=== PATIENT | female | born 1970 | race Caucasian/White ===

== ENCOUNTER → 2018-01-20 14:59 | Outpatient (CLI) | payer OTHER, SELFPAY ==
[2018-01-20 14:29] VITALS: BMI 29.2
--- NOTE | 2018-01-20 15:06 | VDUE_ITS ---
Reason For Study: Pre op dialysis access graft Right Arm Left Arm Right Cephalic Vein at the wrist Left Cephalic Vein at the wrist measures .21 measures .12 x .15 cm. x .24 cm. Right Cephalic Vein in the forearm Left Cephalic Vein in the forearm measures .18 measures .18 x .19 cm. x .18 cm. Right Cephalic Vein below antecub Left Cephalic Vein below antecub measures .20 measures .14 x .17 cm. x .21 cm. Right Cephalic Vein above antecub Left Cephalic Vein above antecub measures .15 x .16 cm. measures .13x .15 cm. Right Cephalic Vein mid bicep measures .21 Left Cephalic Vein at mid bicep measures .13 x .19 cm. x .15 cm. Right Cephalic Vein at the shoulder Left Cephalic Vein at the shoulder measures .17 x .19 cm. measures .14 x .16 cm. Right Basilic Vein at the origin Basilic vein at origin measures .34 x .35 cm. measures .37 x .35 cm. Basilic vein at bicep measures .29 x .31 cm. Right Basilic Vein mid bicep measures .27 Basilic vein above antecub measures .33 x .38 x .27 cm. cm. Right Basilic Vein above antecub Brachial artery - .43 x .44 cm with a velocity measures .23 x .27 cm. of 137.0 cm/s Brachial artery - .34 x .33 cm with a Radial artery - .20 x .18 cm with velocity of velocity of 92.6 cm/s 81.5 cm/s. Radial artery - .19 x .19 cm with a velocity of 102.0 cm/s. Interpretation Summary Patent and compressible bilateral upper extremity cephalic and basilic veins with very small bilateral cephalic veins. Adequate bilateral upper arm basilic veins Adequate bilateral brachial arteries Ordering Physician: Guanakito Palafox Referring Physician: Guanakito Palafox Performed By: Ana Pop RVT ?
--- NOTE | 2018-01-20 15:06 | VDUE_ITS ---
Reason For Study: LUE swelling Left Proximal Left jugular vein is spontaneous, widely patent, phasic, with no intraluminal echogenicity noted. Left subclavian vein is spontaneous, widely patent, phasic, with no intraluminal echogenicity noted. Left Arm Left axillary vein is spontaneous, patent, phasic, competent, compressible and demonstrates augmentation. Left brachial vein is compressible. Left cephalic vein is compressible. Left basilic vein is compressible. Left Lower Arm Left radial vein is compressible. Left ulnar vein is compressible. Interpretation Summary No evidence for acute deep venous thrombosis[left] upper extremity with patent and compressible cephalic and basilic veins. Ordering Physician: Guanakito Palafox Referring Physician: Guanakito Palafox Performed By: Ana Pop RVT ?
== END ==
PROVIDERS: PCP Family Medicine; Referring Provider Surgery; Visit Provider Surgery
DX: Z01.818 Encounter for other preprocedural examination (principal); M79.89 Other specified soft tissue disorders
CPT/HCPCS: 93970; 93971

== ENCOUNTER 2018-01-27 05:55 | Day surgery (SDC) | payer OTHER, SELFPAY ==
[2018-01-20 14:29] VITALS: BMI 29.2
[2018-01-27 06:43] VITALS: BP 143/82; PULSE 106; RESP 18; TEMP 36.6; O2SAT 93; BMI 27.0
[2018-01-27 07:01] LABS: Bedside Glucose 144 mg/dL (70-110)
[2018-01-27] MEDS: Heparin Injection (Vial) 5,000 UNIT/ML VIAL 5000 UNIT (07:34)
[2018-01-27] MEDS: Bupivacaine Mpf 0.5% 30 ML VIAL (08:27)
--- NOTE | 2018-01-27 09:18 | PCM.DC.FIST ---
Discharge Diet: Renal Diet Discharge Activity: May Not Drive - for 2-3 days or while taking narcotic pain medications., May Shower, May Take a Tub Bath - in 5 days. Lifting Restrictions: 5 pounds Keep extremity elevated above heart level: - - Keep arm elevated above the heart level for 3 days. Additional Activity Instructions:: Exercise hand vigorously with a stress ball. Call your doctor if your incision/area has: Continuous Slow Oozing, Sudden Increased Bleeding - apply pressure and call your doctor., Increased Pain/ Swelling, Increased Redness, Foul Smelling Discharge Call your doctor if you observe: Fever of 101 or Higher Suture Line Care: Avoid Pulling/Pushing, Avoid Pinching/Bending Cleanse incision/area with: Keep Dressing Clean & Dry Additional Dressing/Incision Instructions:: Leave your dressing on for 2-3 days. Remove if there is any irritation. Leave the additional Steri-Strips on for 1 week Allergies/Adverse Reactions: Allergies amoxicillin [From Augmentin] Allergy (Verified 01/26/18 18:04) Hives clavulanic acid [From Augmentin] Allergy (Verified 01/26/18 18:04) Hives furosemide [From Lasix] Allergy (Verified 01/26/18 18:04) Swelling sulfamethoxazole [From Bactrim] Allergy (Verified 01/26/18 18:04) Chest tightness trimethoprim [From Bactrim] Allergy (Verified 01/26/18 18:04) Chest tightness Medications to take at Discharge Insulin Glargine,Hum.rec.anlog [Lantus] 15 unit SQ BID 02/08/15 Lisinopril [Zestril] 10 mg PO DAILY 11/29/15 Metoprolol Tartrate [Lopressor (beta naot)] 12.5 mg PO DAILY 12/06/15 Hydrocodone Bitart/Apap 5-325 [[place] 5MG-325MG] 1 tablet PO Q6H PRN PRN 2 Days #5 tablet 01/27/18 The following prescriptions were given: Hydrocodone Bitart/Apap 5-325 [[place] 5MG-325MG] 1 tablet PO Q6H PRN PRN 2 Days #5 tablet PRN Reason: Pain Primary Care Physician: Alexander Gamble MD [Primary Care Provider] - Test Results: Test results from this visit will be discussed in further detail at your follow-up appointment, if applicable. Please Follow Up With: Guanakito Palafox MD - [phone] When: Call to make an appointment for suture removal and follow up in 1 week.
--- NOTE | 2018-01-27 09:19 | PCM.OPRPT ---
Problem List (1) Chronic renal failure, stage 5 Status: Acute Report of Operation Date of Procedure: 01/27/18 Pre-Operative Diagnosis: Stage V chronic renal insufficiency Post-Operative Diagnosis: Same Surgery/Procedure Performed:: Stage I right upper extremity brachial to basilic arteriovenous fistula creation Description of Surgical Findings:: Timeout and informed consent was obtained. 47-year-old female was taken the operating placed by the table. She underwent monitored anesthesia care and local anesthetic. 1% lidocaine mixed 50-50 with 0.5% Marcaine was used as a local anesthetic. A total of 15 cc was used. An oblique incision was made in the right antecubital space proximal to the crease. Ultrasound has been performed to identify the course of the basilic vein. The basilic vein was dissected circumferentially and then ink marked. Sharp and blunt dissection was used to identify the right brachial artery. Circumferential control was obtained. The patient received 7000 units of heparin. After adequate Strickling time the vein was ligated distally with a Hemoclip. Peripheral vascular clamps were placed on the brachial artery. An 11 blade was used to make an arteriotomy which was extended with Gardner scissors. The vein was spatulated length and end-to-side anastomosis created with a running 7-0 Prolene. Prior to completion of this good antegrade and retrograde flow. The anastomosis was completed and immediately there was good pulsatile flow within the basilic vein. Hemostasis was nicely intact. The wound was closed with a deep layer of interrupted 3-0 Vicryl and then a running septic or 4-0 Monocryl. Steri-Strips Telfa OpSite dressings applied. Sponge and instrument and needle counts were reported the surgeon be correct. Blood loss was minimal. She tolerated the procedure well was taken to the recovery area in satisfactory condition without apparent complication. Hand was viable. Specimens none. Drains none. Blood loss minimal. Guanakito Palafox M.D., F.A.C.S. Type of Anesthesia:: Local MAC Anesthesiologist: Sb Lomax
[2018-01-27 09:20] VITALS: BP 118/71; BP 143/82; PULSE 99; RESP 16; TEMP 36.3; O2SAT 84
[2018-01-27 09:25] VITALS: BP 127/72; BP 143/82; PULSE 101; RESP 16; O2SAT 86
[2018-01-27 09:30] VITALS: BP 134/78; BP 143/82; PULSE 101; RESP 16; O2SAT 87
[2018-01-27 09:39] VITALS: BP 137/76; BP 143/82; PULSE 101; RESP 16; TEMP 36.8; O2SAT 87
--- NOTE | 2018-01-27 09:42 | SUR.PHASEI ---
PULSE OX 85-87% ON ROOM AIR, OK TO DISCHARGE, THIS IS PATIENTS, BASELINE.
[2018-01-27 10:48] VITALS: BP 142/79; BP 143/82; PULSE 104; RESP 18; TEMP 36.9; O2SAT 92
--- OUTSIDE RECORDS SUMMARY | 2018-03-15 04:57 | XMS RPT_ITS ---
:1970 Author Organization OHIP Support Name Relationship Address Phone CEE KELLY Unavailable [address] + [place] [address] MARCIO, EWA Unavailable Unavailable + UE Unavailable Unavailable Unavailable CEE KELLY Unavailable [address] + [place] [address] MARCIO, EWA Unavailable . + [place] [address] UE Unavailable Unavailable Unavailable CEE KELLY Unavailable [address] + [place] [address] MARCIO, EWA Unavailable . + [place] [address] UE Unavailable Unavailable Unavailable CEE KELLY Unavailable [address] + [place] [address] MARCIO, EWA Unavailable Unavailable + UE Unavailable Unavailable Unavailable CEE KELLY Unavailable [address] + [place] [address] MARCIO, EWA Unavailable Unavailable + [place] [address] UE Unavailable Unavailable Unavailable KELLYCEE Unavailable [address] + [place] [address] UE Unavailable Unavailable Unavailable CEE KELLY Unavailable [address] + [place] [address] UE Unavailable Unavailable Unavailable KELLYCEE Unavailable [address] [facility] + [place] [address] UE Unavailable Unavailable Unavailable CEE KELLY Unavailable [address] [address] + [address] [place] [address] CEE KELLY Unavailable [address] + [address] [place] [address] CEE KELLY Unavailable [address] + [place], [place] [phone] CEE KELLY Unavailable [address] Unavailable [place] [phone] NOT GIVEN Unavailable Unavailable Unavailable CEE KELLY Unavailable [address] + [place], [place] [phone] CEE KELLY Unavailable [address] Unavailable [place], [place] [id number] NOT GIVEN Unavailable Unavailable Unavailable CEE KELLY Unavailable [address] + [place] [address] CEE KELLY Unavailable [address] + [place], [place] [phone] KELLYCEE Unavailable [address] Unavailable [place] [id number] NOT GIVEN Unavailable Unavailable Unavailable KELLYCEE Unavailable [address] + [place] [address] KELLYCEE Unavailable [address] + [place], [place] [phone] KELLYCEE Unavailable [address] Unavailable [place] [phone] NOT GIVEN Unavailable Unavailable Unavailable KELLYCEE Unavailable [address] + [place], [place] [phone] KELLY CEE Unavailable [address] Unavailable [place] [phone] NOT GIVEN Unavailable Unavailable Unavailable KELLY CEE Unavailable [address] + [place], [place] [phone] KELLY CEE Unavailable [address] Unavailable [place] [phone] NOT GIVEN Unavailable Unavailable Unavailable KELLYCEE Unavailable [address] + [place], [place] [id number] KELLYCEE Unavailable [address] Unavailable [place] [phone] NOT GIVEN Unavailable Unavailable Unavailable CEE KELLY Unavailable [address] + [place], [place] [phone] KELLY CEE Unavailable [address] Unavailable [place] [id number] NOT GIVEN Unavailable Unavailable Unavailable CEE KELLY Unavailable [address] + [place], [place] [phone] CEE KELLY Unavailable [address] Unavailable [place] [phone] NOT GIVEN Unavailable Unavailable Unavailable CEE KELLY Unavailable [address] + [place] [phone] CEE KELLY Unavailable [address] Unavailable [place] [phone] NOT GIVEN Unavailable Unavailable Unavailable NOT GIVEN Unavailable Unavailable Unavailable CEE KELLY Unavailable [address] + [place], [place] [phone] CEE KELLY Unavailable [address] Unavailable [place], [place] [phone] NOT GIVEN Unavailable Unavailable Unavailable CEE KELLY Unavailable [address] + [place] [phone] CEE KELLY Unavailable [address] Unavailable [place], [place] [phone] NOT GIVEN Unavailable Unavailable Unavailable CEE KELLY Unavailable [address] + [place] [address] CEE KELLY Unavailable [address] + [place] [address] CEE KELLY Unavailable [address] + [place] [phone] CEE KELLY Unavailable [address] Unavailable [place] [phone] NOT GIVEN Unavailable Unavailable Unavailable Care Team Providers Name Role Phone JOLEEN DAVIDSON MD Admitting Unavailable [facility] Primary Care Unavailable LIV BAIG, DR. VENKATA Mason Attending Unavailable [facility] Consulting Unavailable EDUARDO PENA MD, V. Consulting Unavailable JARVIS TAYLOR DO Consulting Unavailable FRED LA MD Consulting Unavailable HEMA PETERSON MD Consulting Unavailable FRED KELLY MD Consulting Unavailable NADIA BOYCE MD Consulting Unavailable ALICIA SALAZAR Consulting Unavailable FRED KELLY MD Attending Unavailable [facility] Primary Care Unavailable AMBROSE HUYNH MD Admitting Unavailable TYE BAIG, [facility] Unavailable JOHAN SAEED DO Attending Unavailable MORALES FLOYD MD Consulting Unavailable LYN APODACA DO Consulting Unavailable MEERA FREEMAN MD Consulting Unavailable AMRIT KUHN Consulting Unavailable ISAÍAS CAI MD Consulting Unavailable TYE BAIG, KANNAN Consulting Unavailable SHAZIA BAIG, DR. MICHAELS Consulting Unavailable LYN TORRES MD Consulting Unavailable TYE BAIG, [place] Primary Care Unavailable ANH RUVALCABA Admitting Unavailable GREGORIO PAZ, DR. DANIEL Attending Unavailable YURIY FENG Consulting Unavailable ANALI INFANTE MD, BA. Consulting Unavailable LYN TORRES MD Consulting Unavailable ISAÍAS CAI MD Consulting Unavailable NATHAN OHARA DO Consulting Unavailable TYE BAIG, KANNAN Consulting Unavailable DEDRA PAZ, DR. ADIN Enrique Consulting Unavailable RATNA STEIN MD Admitting Unavailable RATNA STEIN MD Attending Unavailable TYE BAIG, [place] Primary Care Unavailable TYE BAIG, KANNAN Consulting Unavailable ANALI INFANTE MD, BA. Consulting Unavailable DEDRA PAZ, DR. ADIN Enrique Consulting Unavailable ISAÍAS CAI MD Consulting Unavailable LYN TORRES MD Consulting Unavailable EMIL ESQUEDA, RATNA Lambert Attending Unavailable TYE BAIG, [place] Primary Care Unavailable MIEDEL, MARY E Admitting Unavailable MIEDEL, MARY E Attending Unavailable MIGERALDINEEL, MARY E Primary Care Unavailable RADHA WILLINGHAM Consulting Unavailable PROVIDER, UNKNOWN Consulting Unavailable PROVIDER, UNKNOWN Consulting Unavailable PROVIDER, UNKNOWN Consulting Unavailable DR NAMAN VUONG Admitting Unavailable CAROLANN, DR NAMAN Coffman Attending Unavailable JAROCHO BARROW CNP Referring Unavailable CAROLANN, DR NAMAN Coffman Primary Care Unavailable JAROCHO BARROW CNP Consulting Unavailable PROVIDER, UNKNOWN Consulting Unavailable PROVIDER, UNKNOWN Consulting Unavailable JACOBY OMALLEY DO Admitting Unavailable JACOBY OMALLEY DO Attending Unavailable JACOBY OMALLEY DO Primary Care Unavailable JAROCHO BARROW CNP Consulting Unavailable PROVIDER, UNKNOWN Consulting Unavailable PROVIDER, UNKNOWN Consulting Unavailable FRED SHEPHERD DO Admitting Unavailable FRED SHEPHERD DO Attending Unavailable FRED SHEPHERD DO Primary Care Unavailable JAROCHO BARROW CNP Consulting Unavailable JAROCHO BARROW CNP Referring Unavailable PROVIDER, UNKNOWN Consulting Unavailable PROVIDER, UNKNOWN Consulting Unavailable JAROCHO BARROW CNP Admitting Unavailable JAROCHO BARROW CNP Attending Unavailable JAROCHO BARROW CNP Primary Care Unavailable JAROCHO BARROW CNP Consulting Unavailable PROVIDER, UNKNOWN Consulting Unavailable PROVIDER, UNKNOWN Consulting Unavailable JAROCHO BARROW CNP Admitting Unavailable JAROCHO BARROW CNP Attending Unavailable JAROCHO BARROW [employer]ING EXAMINER Primary Care Unavailable JAROCHO BARROW CNP Consulting Unavailable PROVIDER, UNKNOWN Consulting Unavailable PROVIDER, UNKNOWN Consulting Unavailable HABERBERGER, GALLITO M Admitting Unavailable HABERBERGER, GALLITO M Attending Unavailable JAROCHO BARROW CNP Referring Unavailable HABERBERGER, GALLITO M Primary Care Unavailable PUSHPA JAROCHO TRAN Consulting Unavailable PROVIDER, UNKNOWN Consulting Unavailable PROVIDER, UNKNOWN Consulting Unavailable HABERBERGER, GALLITO M Admitting Unavailable HABERBERGER, GALLITO M Attending Unavailable JAROCHO BARROW CNP Referring Unavailable HABERBERGER, GALLITO M Primary Care Unavailable JAROCHO BARROW CNP Consulting Unavailable PROVIDER, UNKNOWN Consulting Unavailable PROVIDER, UNKNOWN Consulting Unavailable SELENE ALEMAN MD Admitting Unavailable HENRI, SELENE ESQUEDA Attending Unavailable SELENE ALEMAN MD Primary Care Unavailable JAROCHO BARROW CNP Consulting Unavailable JAROCHO BARROW CNP Referring Unavailable PROVIDER, UNKNOWN Consulting Unavailable PROVIDER, UNKNOWN Consulting Unavailable HABERBERGER, GALLITO M Admitting Unavailable HABERBERGER, GALLITO M Attending Unavailable KNANAN GAMBLE Referring Unavailable HABERBERGER, GALLITO M Primary Care Unavailable KANNAN GAMBLE Consulting Unavailable PROVIDER, UNKNOWN Consulting Unavailable CAROLANN, DR NAMAN Coffman Admitting Unavailable CAROLANN, DR NAMAN Coffman Attending Unavailable CAROLANN, DR NAMAN Coffman Primary Care Unavailable JAROCHO BARROW CNP Consulting Unavailable JAROCHO BARROW CNP Referring Unavailable PROVIDER, UNKNOWN Consulting Unavailable PROVIDER, UNKNOWN Consulting Unavailable MINDY KILLIAN MD Admitting Unavailable MINDY KILLIAN MD Attending Unavailable MINDY KILLIAN MD Primary Care Unavailable JAROCHO BARROW CNP Consulting Unavailable PROVIDER, UNKNOWN Consulting Unavailable PROVIDER, UNKNOWN Consulting Unavailable KANNAN GAMBLE Admitting Unavailable KANNAN GAMBLE Attending Unavailable KANNAN GAMBLE Primary Care Unavailable JAROCHO BARROW CNP Consulting Unavailable PROVIDER, UNKNOWN Consulting Unavailable PROVIDER, UNKNOWN Consulting Unavailable MOHSEN BERRY Admitting Unavailable MOHSEN BERRY Attending Unavailable MOHSEN BERRY Primary Care Unavailable NO, DOCTOR ON Referring Unavailable NO, DOCTOR ON Consulting Unavailable DARRELL SINGH Attending Unavailable ISAÍAS CAI Referring Unavailable DARRELL SINGH Referring Unavailable DARRELL SINGH Referring Unavailable DARRELL SINGH Referring Unavailable DARRELL SINGH Admitting Unavailable DARRELL SINGH Attending Unavailable KANNAN GAMBLE) Attending Unavailable JAROCHO BARROW Referring Unavailable KANNAN GAMBLE) Referring Unavailable PODLOGAR, AUGUSTINA (SENDY) Attending Unavailable KANNAN GAMBLE) Attending Unavailable KANNAN GAMBLE) Referring Unavailable AYALA, ISAÍAS GRIER Referring Unavailable SOFI GARSIA (RD) Attending Unavailable AYALA, ISAÍAS MARVEL Referring Unavailable AYALA, ISAÍAS MARVEL Referring Unavailable AYALA, ISAÍAS MARVEL Referring Unavailable AYALA, ISAÍAS MARVEL Referring Unavailable AYALA, ISAÍAS MARVEL Referring Unavailable AYALA, ISAÍAS MARVEL Referring Unavailable AYALA, ISÍAAS MARVEL Referring Unavailable AYALA, ISAÍAS MARVEL Referring Unavailable AYALA, ISAÍAS MARVEL Referring Unavailable KANNAN GAMBLE () Attending Unavailable KANNAN GAMBLE) Referring Unavailable PODLOGAR, AUGUSTINA (SENDY) Attending Unavailable KANNAN GAMBLE) Attending Unavailable KANNAN GAMBLE) Referring Unavailable KANNAN GAMBLE) Referring Unavailable SHERRY PHILIP Attending Unavailable KANNAN GAMBLE) Referring Unavailable KANNAN GAMBLE) Referring Unavailable KANNAN GAMBLE) Referring Unavailable KANNAN GAMBLE) Referring Unavailable CebulGuanakito Attending Unavailable CebulGuanakito Referring Unavailable Tye, Alexander Primary Care Unavailable CebulGuanakito Attending Unavailable CebulGuanakito Attending Unavailable CebulGuanakito Referring Unavailable WILLINGHAM, RADHA Primary Care Unavailable Guanakito Palafox Consulting Unavailable Cebul, Guanakito Attending Unavailable KelseybulGuanakito Referring Unavailable WILLINGHAM, RADHA Primary Care Unavailable Guanakito Palafox Attending Unavailable Alexander Gamble Referring Unavailable Cebul, Guanakito Attending Unavailable CebulGuanakito Referring Unavailable Bursley, Alexander Primary Care Unavailable Laura Jasso PA-C Attending Unavailable Alexander Gamble Referring Unavailable Guanakito [facility]af[facility] Attending Unavailable Alexander Gamble Referring Unavailable PROBLEMS PROBLEMS DATE TYPE CONDITION / CODE ATTENDING STATUS SOURCE Unknown G89.18 - Other acute Guanakito Pal[facility] Active [facility] 9 postprocedural pain / Community G89.18(ICD-10) Hospital Repository Active Secondary amenorrhea NA Active [facility] / N91.1(ICD-10) Clinic Main [facility]ository Active Abnormal levels of NA Active [facility] other serum enzymes / Clinic Main R74.8(ICD-10) [facility] Active Encounter for NA Active [facility] screening mammogram Clinic Main for malignant [facility] neoplasm of breast / Repository Z12.31(ICD-10) Active Other specified NA Active [facility] abnormal findings of Clinic Main blood chemistry / [facility] R79.89(ICD-10) Repository Active Type 2 diabetes NA Active [facility] 8 mellitus with Clinic Main diabetic chronic [facility] kidney disease / Repository E11.22(ICD-10) Unknown N18.5 - Chronic KelseybuGuanakito enrique Active [facility] 9 kidney disease, stage Community 5 / N18.5(ICD-10) Hospital Repository Unknown Z01.818 - Encounter [place] [facility] Active [place] 8 for other Community preprocedural Hospital examination / Repository Z01.818(ICD-10) Unknown M79.89 - Other [place] [facility] Active [facility] 8 specified soft tissue Community disorders / Hospital M79.89(ICD-10) Repository Active Pneumonia, NA Active [facility] 8 unspecified organism Clinic Main / J18.9(ICD-10) [facility] Active Orthopnea / NA Active [facility] 8 R06.01(ICD-10) Clinic Main [facility] Rep[facility] Active Dependence on renal NA Active [facility] dialysis / Clinic Main Z99.2(ICD-10) [facility] Active Type 2 diabetes NA Active [facility] 8 mellitus with Clinic Main diabetic nephropathy [facility] / E11.21(ICD-10) Repository Active penitentiary (current) NA Active [facility] 8 use of insulin / Clinic Main Z79.4(ICD-10) [facility] Rep[facility] Active Tobacco use / NA Active [facility] 8 Z72.0(ICD-10) Clinic Main [facility] Rep[facility] Active Age-related physical NA Active [facility] debility / Clinic Main R54(ICD-10) [facility] Active Other specified NA Active [facility] symptoms and signs Clinic Main involving the [facility] digestive system and Repository abdomen / R19.8(ICD-10) Active Chronic kidney SOIF GARSIA Active [place] [address] disease, unspecified (RD) Clinic Main / N18.9(ICD-10) [facility] Rep[facility] Active Encounter for other NA Active [facility] 8 preprocedural Clinic Main examination / [facility] Z01.818(ICD-10) Repository Active Gastrointestinal NA Active [place] [address] hemorrhage, Clinic Main unspecified / [facility] K92.2(ICD-10) Repository Active Tachycardia, NA Active [place] [address] unspecified / Clinic Main R00.0(ICD-10) [facility] Repository Principle Chronic kidney ROMYMARY ROA Titus Active [place] [address] Diagnosis disease, stage 4 [facility] (severe) / Hospital N184(ICD-10) Repository Active Unknown / TYE [place] [address] UNK(Unknown) KANNAN [facility] OLLIE) [facility] Repository Principle Other general JAROCHO BARROW Active [place] [address] Diagnosis symptoms and signs / Critical access hospital R6889(ICD-10) Hospital Repository Secondary Type 2 diabetes JAROCHO BARROW Active [place] [address] Diagnosis mellitus without Critical access hospital complications / Hospital E119(ICD-10) Repository Active End stage renal NA Active [place] [address] disease / Clinic Main N18.6(ICD-10) [facility] Rep[facility] PROCEDURES PROCEDURES No Procedure Records FoundRESULTS RESULTS BEDSIDE GLUCOSE Collected: 03/10/2018 Status: F Source: [place] 1:13 PM [facility] REPOSITORY TYPE CODE TESTS RESULT OUT OF REFERENCE UNITS RANGE LAB L501.080 70-110 mg/dL High BEDSIDE GLU 115 Result Comment: MANAGEMENT OF PATIENT CARE PER NURSING PROTOCOL Performed By: #### L501.080 #### [facility] Point [place] [address] CBC-COMPLETE BLOOD CNT Collected: 03/10/2018 Status: F Source: [place] NO DIFF 7:40 AM [facility] REPOSITORY TYPE CODE TESTS RESULT OUT OF RANGE REFERENCE UNITS LAB L100.1000 4.4-11.0 K/mm3 Normal WBC 7.4 LAB L100.1200 4.2-5.4 M/mm3 Low RBC 3.77 LAB L100.1300 12.0-15.0 g/dl Low HGB 10.6 LAB L100.1400 37-47 % Low HCT 33.6 LAB L100.1500 81-99 fL Normal MCV 89.1 LAB L100.1600 27.0-32.0 pg Normal MCH 28.1 LAB L100.1700 32-36 g/gl Low MCHC 31.5 LAB L100.1810 11.6-14.6 % High RDW CV 17.2 LAB L100.1820 35.1-43.9 fl High RDW SD 53.4 LAB L100.1900 150-450 K/mm3 Normal PLT 269 LAB L100.2000 6.2-12.0 fl Normal MPV 10.3 Performed By: #### L100.0500 #### [facility] [address] [place], [address] BASIC METABOLIC Collected: 03/10/2018 Status: F Source: [place] PROFILE (BMP) 7:40 AM [facility] REPOSITORY TYPE CODE TESTS RESULT OUT OF RANGE REFERENCE UNITS LAB L501.0100 74-106 mg/dL High GLU 120 Result Comment: Fasting Glucose result from 100 to 125 mg/dL suggests IMPAIRED HOMEOSTASIS per A.D.A. criteria. Please note revised GLUCOSE reference range effective 2017. LAB L501.1000 7-18 mg/dL High BUN 43 LAB L501.1100 0.55-1.02 mg/dL High CREAT,SERUM 4.32 Result Comment: The validity of the calculated GFR AND GFRAA in patients over 70 years has not been determined. Clinical correlation is essential. LAB L501.1110 >60 mL/min Low EST GFR 12 Result Comment: Non- GFR Calc LAB L501.1115 >60 mL/min Low EST GFR - AA 14 Result Comment: GFR Calc LAB L501.1300 10-20 RATIO Normal BUN/CRE 10.0 LAB L501.2200 8.5-10.1 mg/dL CA Normal 9.4 LAB L501.5300 136-145 mmol/L NA Normal 137 LAB L501.5600 3.5-5.1 mmol/L K Normal 4.6 LAB L501.5900 98-107 mmol/L Low CL 97 LAB L501.6100 21.0-32.0 mmol/L Normal CO2 28.0 LAB L501.6200 5-15 Normal GAP 12 Performed By: #### L500.2500 #### [facility] [address] [place], [address] ,URINE Collected: 03/10/2018 Status: F Source: [place] 7:38 AM [facility] REPOSITORY Order Comment: Has pt arrived? Y TYPE CODE TESTS RESULT OUT OF REFERENCE UNITS RANGE LAB L400.8000 Negative Normal HCGUQUAL Negative Result Comment: Very dilute urine specimens, as indicated by a low specific gravity, may not contain artist representative levels of hCG. If is still suspected, a first morning urine specimen should be collected 48 hours later and tested. Performed By: #### L400.7600 #### [facility] [address] [place], [address] PROGRESS Observed: 03/05/2018 Status: COMPLETED Source: [place] 11:56 AM [facility] REPOSITORY HNO ID: [id number] Author: Tracey Escalante) Adan Service: (none) Author Type: Registered Nurse Type: Progress Notes Filed: 03/05/2018 3:35 PM Note Text: PRIMARY CARE COORDINATION QUICK NOTE Provider Action/FYI FYI Patient identified by name and date . TC to Nurse Transplant Line, left message patient stopped smoking 6 weeks ago and had mammogram and Pap which spouse stated was part of the process for transplant list. Spouse is unsure where pt is in the process of getting on the transplant list and what more pt needs to do. Please call PCC back with other requirements. Tracey Arellano RN March 05, 2018 11:58 AM PROGRESS Observed: 03/05/2018 Status: COMPLETED Source: [place] 8:55 AM [facility] REPOSITORY HNO ID: [id number] Author: Kannan Gamble Service: (none) Author Type: Physician Type: Progress Notes Filed: 03/05/2018 8:55 AM Note Text: Reviewed. Thanks PROGRESS Observed: 02/27/2018 Status: COMPLETED Source: [place] 2:42 PM [facility] REPOSITORY HNO ID: [id number] Author: Tracey Escalante) Adan Service: (none) Author Type: Registered Nurse Type: Progress Notes Filed: 03/04/2018 4:33 PM Note Text: PRIMARY CARE COORDINATION FOLLOW-UP NOTE Provider Action/FYI PT/OT stopped Pt able to manage ADLs, dressing bathing and fixing simple meals while spouse at work Pt stopped smoking cold turkey 6 weeks ago because pt has to be non-smoking to continue on transplant list. Still having weakness and ambulating with walker Still having some anxiety. Pt and spouse have active support system with family and steamfitter Patient identified by name and date of . YES Spoke to spouse TC to Fariba Facundo, Transplant SW, left message to please call PCC back regarding pt's status with transplant process. Summary: PT/OT stopped on Feb 17 due to insurance. Pt is able to complete ADLs, dressing, bathing and preparing simple meals when spouse is at work. Ambulating with walker at home. Still weak Pt sleeping in hospital bed and having some insomnia. States she had some issues with insomnia previously also. States she functions much better when she is rested. Family is active support system for pt and spouse. Brother takes pt to dialysis 3x/week Sister in law is SW at [facility] and comes over twice a week to talk to patient and spouse. Lumber Inspector is certified in counseling and comes every Wed before sikhism to talk with patient Spouse states pt is happier and more talkative after family and printed circuit boards pinner visit. Pt got her Mammogram and Pap completed Pt stopped smoking cold turkey 6 weeks ago because Transplant Team stated pt has to stop smoking to stay on the list after 6 months. Spouse isn't sure where they are in the process of her kidney transplant, unsure if she needs to stop smoking for an entire 6 months before she will be considered. Transplant SW is Lisa Facundo [phone]. Informed PCC can call and find out where pt is in process of transplant. Son was home from school today and told father pt had anxiety issues today but he was able to get pt calmed down by rubbing pt's back. Pt has her good and bad days but spouse feels pt is doing okay with all that she has been through with her recent illnesses. Also Dr. Prieto, oil pit attendant told spouse it will take months for pt to recover from all the toxins that were in her body. Manager Project plan for next outreach: Will follow up one month Signature Tracey Arellano RN February 27, 2018 TC to patient, left message to please call PCC back regarding pt's progress at home Tracey Arellano RN February 27, 2018 2:44 PM YAYA Observed: 02/27/2018 Status: COMPLETED Source: [place] 12:00 AM [facility] REPOSITORY Patient Outreach ([facility]) COLLETTE KELLY ([id number]) 1970 F TRN Date Time Provider Department 02/27/18 TRACEY ARELLANO (RN) RENETTA During your visit today, we recorded the following information about you: Tracey Arellano RN 03/04/2018 4:33 PM Signed PRIMARY CARE COORDINATION FOLLOW-UP NOTE Provider Action/FYI PT/OT stopped Pt able to manage ADLs, dressing bathing and fixing simple meals while spouse at work Pt stopped smoking cold turkey 6 weeks ago because pt has to be non-smoking to continue on transplant list. Still having weakness and ambulating with walker Still having some anxiety. Pt and spouse have active support system with family and steamfitter Patient identified by name and date of . YES Spoke to spouse TC to Fariba Loredo, Transplant SW, left message to please call PCC back regarding pt's status with transplant process. Summary: PT/OT stopped on Feb 17 due to insurance. Pt is able to complete ADLs, dressing, bathing and preparing simple meals when spouse is at work. Ambulating with walker at home. Still weak Pt sleeping in hospital bed and having some insomnia. States she had some issues with insomnia previously also. States she functions much better when she is rested. Family is active support system for pt and spouse. Brother takes pt to dialysis 3x/week Sister in law is SW at [facility] and comes over twice a week to talk to patient and spouse. Lumber Inspector is certified in counseling and comes every Wed before sikhism to talk with patient Spouse states pt is happier and more talkative after family and printed circuit boards pinner visit. Pt got her Mammogram and Pap completed Pt stopped smoking cold turkey 6 weeks ago because Transplant Team stated pt has to stop smoking to stay on the list after 6 months. Spouse isn't sure where they are in the process of her kidney transplant, unsure if she needs to stop smoking for an entire 6 months before she will be considered. Transplant SW is Lisa Loredo [phone]. Informed PCC can call and find out where pt is in process of transplant. Son was home from school today and told father pt had anxiety issues today but he was able to get pt calmed down by rubbing pt's back. Pt has her good and bad days but spouse feels pt is doing okay with all that she has been through with her recent illnesses. Also Dr. Prieto, oil pit attendant told spouse it will take months for pt to recover from all the toxins that were in her body. Manager Project plan for next outreach: Will follow up one month Signature Tracey Arellano RN February 27, 2018 TC to patient, left message to please call PCC back regarding pt's progress at home Tracey Arellano RN February 27, 2018 2:44 PM Kannan Gamble MD 03/05/2018 8:55 AM Signed Reviewed. Thanks Tracye Arellano RN 03/05/2018 3:35 PM Signed PRIMARY CARE COORDINATION QUICK NOTE Provider Action/FYI FYI Patient identified by name and date . TC to Nurse Transplant Line, left message patient stopped smoking 6 weeks ago and had mammogram and Pap which spouse stated was part of the process for transplant list. Spouse is unsure where pt is in the process of getting on the transplant list and what more pt needs to do. Please call PCC back with other requirements. 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 PANTOPRAZOLE 40 MG TABLET,DEL* Take 1 tablet by mouth twice * QUETIAPINE 25 MG TABLET Take 1 tablet by mouth daily * HEPARIN (PORCINE) 5,000 UNIT/* 1 mL by INJECTION(UNSPECIFIED* MELATONIN 5 MG TABLET Take 1 tablet by mouth daily * ACETAMINOPHEN 325 MG CAPSULE Take by mouth every 4 hours a* GENTAMICIN 0.1 % TOPICAL CREAM HUMALOG KWIKPEN (U-100) INSUL* Sliding Scale: <60 >400 Call* SEVELAMER HCL 800 MG TABLET Take 800 mg by mouth three ti* CYCLOBENZAPRINE 10 MG TABLET Take 1 tablet by mouth three * AMLODIPINE 10 MG TABLET 1 tablet once daily. 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 Multiple gastric ulcers [K25.9] Anxiety [F41.9] Depression [F32.9] Diabetes mellitus (HCC) [E11.9] Hypertension [I10] Encounter Status:Closed by TRACEY ARELLANO on 03/05/18 GGT Collected: 02/26/2018 Status: F Source: [place] 9:59 AM [facility] REPOSITORY TYPE CODE TESTS RESULT OUT OF RANGE REFERENCE UNITS LAB GGT 6-46 U/L High GGT 93 Performed By: #### GGT, PROL, FSH, TSH, FT4, T3 #### [facility] [employer] [address] [place], [place] [address] #### EST #### [facility] [address] [place] [address] [phone] PROLACTIN Collected: 02/26/2018 Status: F Source: [place] 9:59 AM [facility] REPOSITORY TYPE CODE TESTS RESULT OUT OF REFERENCE UNITS RANGE LAB PROL 4.5-26.8 ng/mL Prolactin 14.5 Performed By: #### GGT, PROL, FSH, TSH, FT4, T3 #### [facility] [address] [place] [address] #### EST #### [facility] [address] [place] [address] [phone] FSH Collected: 02/26/2018 Status: F Source: [place] 9:59 AM [facility] REPOSITORY TYPE CODE TESTS RESULT OUT OF RANGE REFERENCE UNITS LAB FSH mU/mL FSH 6.7 Result Comment: Reference range: Follicular: 2-11 Midcycle: 10-30 Luteal: 1-9 Post Lynda: 20-100 Performed By: #### GGT, PROL, FSH, TSH, FT4, T3 #### [place] [address] [place] [address] #### EST #### [facility] [address] [place] [address] [phone] TSH Collected: 02/26/2018 Status: F Source: [place] 9:59 AM [facility] REPOSITORY TYPE CODE TESTS RESULT OUT OF RANGE REFERENCE UNITS LAB TSH 0.400-5.500 uU/mL TSH 3.420 Result Comment: If the patient is , TSH reference range varies by gestational period: First Trimester 0.100-2.500 uU/mL Second Trimester 0.200-3.000 uU/mL Third Trimester 0.300-3.000 uU/mL References: 1. Hunter L, Marcel M, David EK, et al. Management of Thyroid Dysfunction during and : An Endocrine Society Clinical Practice Guideline. J Clin Endocrinol Metab, 2012:97:5713-8676. 2. Tay TAYLOR. Overview of thyroid disease in . UpToDate. 2016. Accessed on August 04, 2015. Performed By: #### GGT, PROL, FSH, TSH, FT4, T3 #### [facility] [address] [address] #### EST #### [facility] [address] [place] [address] [phone] FREE T4 Collected: 02/26/2018 Status: F Source: [place] 9:59 AM [facility] REPOSITORY TYPE CODE TESTS RESULT OUT OF RANGE REFERENCE UNITS LAB FT4 0.9-1.7 ng/dL Free T4 1.3 Performed By: #### GGT, PROL, FSH, TSH, FT4, T3 #### [facility] [address] [place] [id number] #### EST #### [address] [address] [phone] T3 Collected: 02/26/2018 Status: F Source: [facility] 9:59 AM [facility] REPOSITORY TYPE CODE TESTS RESULT OUT OF RANGE REFERENCE UNITS LAB T3 79-165 ng/dL Low T3 66 Performed By: #### GGT, PROL, FSH, TSH, FT4, T3 #### [place] [address] #### EST #### [address] [id number] [phone] ESTRONE Collected: 02/26/2018 Status: F Source: [place] 9:59 AM [facility] REPOSITORY TYPE CODE TESTS RESULT OUT OF REFERENCE UNITS RANGE LAB EST pg/mL Estrone 30.9 Result Comment: (NOTE) Females: Pre-menopausal: Early follicular <150.0 pg/mL Pre-menopausal: Late follicular 100.0-250.0 pg/mL Pre-menopausal: Luteal <200.0 pg/mL Post-menopausal 3.0-32.0 pg/mL REFERENCE INTERVAL: Estrone by TMS Access complete set of age- and/or gender-specific reference intervals for this test in the [facility] Test Directory ([facility]). Test developed and characteristics determined by [facility]. See Compliance Statement B: [facility]/CS Performed by [facility], [address] [place] [address] [id number] www.[email or web address], Sami Ellison MD, Lab. Director Performed By: #### GGT, PROL, FSH, TSH, FT4, T3 #### [place] [address] #### EST #### [facility] [address] [id number] [phone] PROGRESS Observed: 02/26/2018 Status: COMPLETED Source: [place] 9:41 AM [facility] [place] REPOSITORY HNO ID: [id number] Author: Jodi Garcia Rdms Service: (none) Author Type: (none) Type: Progress Notes Filed: 02/26/2018 9:42 AM Note Text: Radiology Service Progress Note PATIENT NAME: Collette Kelly DATE OF SERVICE: February 26, 2018 TIME: 9:41 AM PATIENT IDENTITY VERIFICATION COMPLETED USING TWO (2) METHODS: Patient confirmed name verbally and Date of . PATIENT GENDER DATA: Female. status: : No status: NO. PATIENT RELEVANT IMPLANT DATA REVIEWED: Not Applicable RADIOLOGY DEPARTMENT: Ultrasound PERIPHERAL IV DATA: Not applicable SIGNED BY: Jodi Garcia Rdms February 26, 2018 9:41 AM US ABD RIGHT UPPER Observed: 02/26/2018 Status: F Source: [facility] 9:40 AM [facility] REPOSITORY * * *Final Report* * * DATE OF EXAM: Feb 26 2018 9:40AM [facility] 1032 - US ABD RIGHT UPPER QUADRANT / PROCEDURE REASON: Elevated alkaline phosphatase level * * * * Physician Interpretation * * * * EXAMINATION: RIGHT UPPER QUADRANT ULTRASOUND HISTORY: Elevated alkaline phosphatase level TECHNIQUE: Sonography of the right upper quadrant was performed. Images were obtained and stored in a permanent archive. MQ: [id number] COMPARISON: None. RESULT: Pancreas: Pancreas is unremarkable Distal body and tail not optimally seen. Liver: Echogenicity: Homogeneous Surface contour: Smooth Lesions: None seen Biliary: No intrahepatic bile duct dilatation CBD: Normal in size at the hilum. Gallbladder: Gallbladder is absent due to previous surgery. Right Kidney: There is vague increased echotexture of the renal cortex. There is a 3 mm nonobstructing stone in the mid to upper pole region. Ascites: Small amount of ascites noted. There are small bilateral pleural effusions. IMPRESSION: 1. Small bilateral pleural effusions. 2. Small amount of ascites 3. Increased echotexture renal cortex RIGHT kidney. Small nonobstructing stones in the RIGHT kidney Animal Nurse: MANSOOR Transcribe Date/Time: Feb 26 2018 1:24P Dictated by : MARTINA REDD DO This examination was interpreted and the report reviewed and electronically signed by: MARTINA REDD DO on Feb 26 2018 1:27PM EST [id number] CNCO Observed: 02/24/2018 Status: COMPLETED Source: [place] 10:54 AM [facility] REPOSITORY HNO ID: [id number] Author: Mammography Coordinator Service: (none) Author Type: Physician Type: Letter Filed: 02/25/2018 11:31 PM Note Text: February 24, 2018 PID: [id number] Collette Kelly [address] [place] [address] Dear Ms. Kelly, We are pleased to inform you that the results of your recent breast imaging exam on 02/24/2018 are normal. Your mammogram demonstrates that you have dense breast tissue, which could hide abnormalities. Dense breast tissue, in and of itself, is a relatively common condition. Therefore, this information is not provided to cause undue concern; rather, it is to raise your awareness and promote discussion with your health care provider regarding the presence of dense breast tissue in addition to other risk factors. Early detection of cancer is very important. We also understand recommendations regarding breast cancer screening are controversial. Please discuss with your primary care provider which strategy is best for you and whether a mammogram is right for you. Your imaging studies and report will be kept on file at [facility] as part of your permanent medical record and are available for your continuing care. Thank you for allowing us to help in meeting your health care needs. Sincerely, Dr. Hairston Interpreting Radiologist [facility] (Normal over 40) [facility] SCREENING Observed: 02/24/2018 Status: F Source: [place] 10:28 AM [facility] REPOSITORY * * *Final Report* * * DATE OF EXAM: Feb 24 2018 10:28AM [facility] 0581 - [facility] SCREENING / PROCEDURE REASON: Screening mammogram, encounter for * * * * Physician Interpretation * * * * RESULT: #[id number] - [facility] SCREENING BILATERAL DIGITAL SCREENING MAMMOGRAM WITH CAD: 02/24/2018 HISTORY: Screening Mammogram, Encounter For /Screening Mammogram - patient reports NO breast symptoms /baseline mammogram. RESULT: TECHNIQUE: The study was acquired using full field digital technology and interpreted from soft copy. Current study was also evaluated with a Computer Aided Detection (CAD). No prior exams were available for comparison. The tissue of both breasts is heterogeneously dense. This may lower the sensitivity of mammography. Note that this exam is limited due to difficulty positioning the patient. No significant masses, calcifications, or other findings are seen in either breast. IMPRESSION: There is no mammographic evidence of malignancy. A 1 year screening mammogram is recommended. Clay sanz/dany:02/24/2018 10:54:41 Wallpaper Printer(s): Aislinn Anthony RT(R)(M), [facility] letter sent: Normal over 40 Mammogram BI-RADS: 1 Negative Multiple national specialty organizations have released breast cancer screening guidelines for women at average risk for developing breast cancer - guidelines that are based on both evidence and opinion, yet differ on when to start and how often to screen for breast cancer. With representation from Breast Imaging, Internal Medicine, Women's Health, Family Medicine, and Medical/Surgical Oncology, the [facility] has carefully reviewed the data and reached the following consensus: 1) All women should engage in shared decision-making with their providers to decide when to start and how often to screen; 2) All women should have the opportunity to start screening mammography at age 40; 3) For women ages 45-55, we recommend annual screening mammograms; 4) For women ages 55 and over, we support both the transition from an annual to a biennial interval if this aligns more with patient's values and preferences, or continuation with annual screening; 5) All women should discuss with their providers when to stop screening mammograms. Animal Nurse: Dany Transcribe Date/Time: Feb 24 2018 10:02A Dictated by: CLAY HAIRSTON MD This examination was interpreted and the report reviewed and electronically signed by: CLAY HAIRSTON MD on Feb 24 2018 10:54AM EST [id number] HPV W/GENOTYPE Collected: 02/24/2018 Status: F Source: [place] 9:42 AM [facility] REPOSITORY TYPE CODE TESTS RESULT OUT OF RANGE REFERENCE UNITS LAB HPVT16 Abnormal HPV HighRisk Positive for Alert Type 16 HPV DNA high risk type 16 by PCR LAB HPVT18 HPV HighRisk Negative for Type 18 HPV DNA high risk type 18 by PCR. LAB HPVHRO HPV HighRisk Negative for Other HPV DNA high risk types: 31,33,35,39,4 5,51,52,56,58 ,59,66,68 by PCR. Result Comment: This test was developed and its performance characteristics determined by [facility]'s [facility] Camacho [facility] Pathology and Laboratory Medicine [place] ([facility]). It has not been cleared or approved by the FDA. -[facility] is regulated under CLIA as qualified to perform high-complexity testing. This test is used for clinical purposes. It should not be regarded as inv estigational or for research. Performed By: #### HPVHRR #### [facility] [address] [place], [place] [address] CYTOLOGY Observed: 02/24/2018 Status: C Source: [place] 9:42 [facility] REPOSITORY ADDITIONAL PROCEDURES PRESENT ---Abnormal Pap Test - Epithelial Cell Abnormality--- Specimen originated from [facility] Specimen #: [id number] Submitting Physician: SHERRY PHILIP M.D. ([id number]) SPECIMEN SUBMITTED A: CERVICAL, SCREENING, FLUID FINAL DIAGNOSIS A. CERVICAL, SCREENING, FLUID Satisfactory for interpretation. Epithelial cell abnormality. Atypical squamous cells of undetermined significance (ASC-US). This specimen has been analyzed by the ThinPrep Imaging System, an automated imaging and review system, which assists the laboratory in evaluating cells on ThinPrep Pap tests. Following automated imaging, selected mcrae from every slide are reviewed by a academic guidance specialist. Tai Torrez M.D. (Electronic Signature) ADDITIONAL PROCEDURE(S) HUMAN PAPILLOMA VIRUS Date Ordered: 02/25/2018 Date Reported: 02/26/2018 Procedure Results and Interpretation Positive for HPV DNA high risk type 16 by PCR(*) Negative for HPV DNA high risk type 18 by PCR. Negative for HPV DNA high risk types: 31,33,35,39,45,51,52,56,58,59,66,68 by PCR. This test was developed and its performance characteristics determined by [facility] [place] ([facility]). It has not been cleared or approved by the FDA. -[facility] is regulated under CLIA as qualified to perform high-complexity testing. This test is used for clinical purposes. It should not be regarded as investigational or for research. 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 ([id number]) Location: [facility] Diagnostic interpretation performed at [facility], [address] [place] [address]. The Pap Smear is a screening test for cervical cancer. False negative results occur with all screening tests, emphasizing the need for rescreening at recommended intervals, and clinical correlation. PROGRESS Observed: 02/24/2018 Status: COMPLETED Source: [place] 9:13 AM [facility] REPOSITORY HNO ID: [id number] Author: Sherry Philip Service: (none) Author Type: Physician Type: Progress Notes Filed: 02/24/2018 9:42 AM Note Text: Collette Kelly is a 47 year old who presents for her annual gynecologic exam with complaints, no menses since off depo. Last injection 7 months ago. . No menses since. Has been on depo on 13 years Menses: n/a as on depo. Contraception: none now, was on depo HPV vaccine: N/A Last Pap: uncertain normal HPV: N/A History of abnormal pap: No Last mammogram: today Sexually active: Yes Obstetric History T0 L3 SAB0 TAB0 Ectopic0 Multiple0 Live Births0 PAST MEDICAL HISTORY Diagnosis Date - Anxiety - Cardiomegaly mild - Cellulitis - Depression - Diabetes mellitus (HCC) - ESRD (end stage renal disease) on dialysis ([facility]) 03/2017 Dr. Prieto, [facility] - Hypertension - Insomnia - Multiple gastric ulcers - Scoliosis - Tobacco use PAST SURGICAL HISTORY Procedure Laterality Date - DRAINAGE OF PILONIDAL CYST - EXCIS BARTHOLIN GLAND/CYST - PAST SURGICAL HISTORY OF 2018 Removal of peritoneal dialysis due to melina infection - PAST SURGICAL HISTORY OF Right 2018 HD fistula, right arm - PD CATHETER ANCHOR BELT - REMOVAL OF GALLBLADDER 1994 lap michaela FAMILY HISTORY Problem Relation Age of Onset - Diabetes Mother - Hypertension Mother - Depression Mother - Diabetes Father - Hypertension Father - Diabetes Brother - other (pituitary tumor) Daughter SOCIAL HISTORY Social History Substance Use Topics - Smoking status: Former Smoker Packs/day: 1.00 Years: 25.00 Types: Cigarettes Quit date: 01/22/2018 - Smokeless tobacco: Never Used - Alcohol use No REVIEW OF SYSTEMS Abdomen: No abdominal pain, nausea, vomiting, diarrhea, or constipation. No bloating, early satiety, indigestion, or increased flatulence. Bladder: no changes Breast: No breast lumps, nipple d/c, overlying skin changes, redness or skin retraction. Allergies and current medication updated:Yes EXAM: Wt 175 lb (79.4kg) GENERAL: pleasant, female in no apparent distress HEENT: Normocephalic, atraumatic, mucus membranes moist and no lesions NECK: Supple, full range of motion, no adenopathy and thyroid normal DERMATOLOGY: Normal, without lesions, non-icteric and non-hirsute BREAST: soft, non-tender, symmetric, no dominant mass, normal nipple-areolar complex, no lymphadenopathy and no nipple discharge CHEST: Normal inspiratory effort ABDOMEN: soft, non-tender and no masses PELVIC: external genitalia normal, normal Bartholin's glands, urethra, [place]'s glands, no vulvar lesions, no cervical lesions, physiologic discharge present, normal appearing perineal body and perianal region, cystocele 1st degree, rectocele 1st degree BIMANUAL: uterus normal size, shape and consistency, no adnexal masses and non-tender RECTOVAGINAL: deferred. NEURO: alert and oriented x3,exam grossly non-focal EXTREMITIES: normal ASSESSMENT/PLAN: 1) Health maintenance: Pap done with HPV. Mammogram ordered. 2) Contraception: condoms for now, check FSH/estrogen level, if menopausal condoms and if no menses x 1 year then consider menopausal. Contraceptive options reviewed and information provided. 3) STD screening: Declined STD check. 4) Follow up one year or sooner as needed Sherry Philip MD CNOV Observed: 02/24/2018 Status: COMPLETED Source: [place] 9:05 AM [facility] REPOSITORY Office Visit (WOOB) COLLETTE KELLY ([id number]) 1970 F TRN Date Time Provider Department 02/24/18 9:05 AM SHERRY PHILIP During your visit today, we recorded the following information about you: Blood pressure Weight 128/76 79.4 kg Sherry Philip MD 02/24/2018 9:42 AM Signed Collette Kelly is a 47 year old who presents for her annual gynecologic exam with complaints, no menses since off depo. Last injection 7 months ago. . No menses since. Has been on depo on 13 years Menses: n/a as on depo. Contraception: none now, was on depo HPV vaccine: N/A Last Pap: uncertain normal HPV: N/A History of abnormal pap: No Last mammogram: today Sexually active: Yes Obstetric History T0 L3 SAB0 TAB0 Ectopic0 Multiple0 Live Births0 PAST MEDICAL HISTORY Diagnosis Date - Anxiety - Cardiomegaly mild - Cellulitis - Depression - Diabetes mellitus (HCC) - ESRD (end stage renal disease) on dialysis (HCC) 03/2017 Dr. Prieto, [facility] - Hypertension - Insomnia - Multiple gastric ulcers - Scoliosis - Tobacco use PAST SURGICAL HISTORY Procedure Laterality Date - DRAINAGE OF PILONIDAL CYST - EXCIS BARTHOLIN GLAND/CYST - PAST SURGICAL HISTORY OF 2018 Removal of peritoneal dialysis due to melina infection - PAST SURGICAL HISTORY OF Right 2018 HD fistula, right arm - PD CATHETER ANCHOR BELT - REMOVAL OF GALLBLADDER 1994 lap michaela FAMILY HISTORY Problem Relation Age of Onset - Diabetes Mother - Hypertension Mother - Depression Mother - Diabetes Father - Hypertension Father - Diabetes Brother - other (pituitary tumor) Daughter SOCIAL HISTORY Social History Substance Use Topics - Smoking status: Former Smoker Packs/day: 1.00 Years: 25.00 Types: Cigarettes Quit date: 01/22/2018 - Smokeless tobacco: Never Used - Alcohol use No REVIEW OF SYSTEMS Abdomen: No abdominal pain, nausea, vomiting, diarrhea, or constipation. No bloating, early satiety, indigestion, or increased flatulence. Bladder: no changes Breast: No breast lumps, nipple d/c, overlying skin changes, redness or skin retraction. Allergies and current medication updated:Yes EXAM: Wt 175 lb (79.4kg) GENERAL: pleasant, female in no apparent distress HEENT: Normocephalic, atraumatic, mucus membranes moist and no lesions NECK: Supple, full range of motion, no adenopathy and thyroid normal DERMATOLOGY: Normal, without lesions, non-icteric and non-hirsute BREAST: soft, non-tender, symmetric, no dominant mass, normal nipple-areolar complex, no lymphadenopathy and no nipple discharge CHEST: Normal inspiratory effort ABDOMEN: soft, non-tender and no masses PELVIC: external genitalia normal, normal Bartholin's glands, urethra, [place]'s glands, no vulvar lesions, no cervical lesions, physiologic discharge present, normal appearing perineal body and perianal region, cystocele 1st degree, rectocele 1st degree BIMANUAL: uterus normal size, shape and consistency, no adnexal masses and non-tender RECTOVAGINAL: deferred. NEURO: alert and oriented x3,exam grossly non-focal EXTREMITIES: normal ASSESSMENT/PLAN: 1) Health maintenance: Pap done with HPV. Mammogram ordered. 2) Contraception: condoms for now, check FSH/estrogen level, if menopausal condoms and if no menses x 1 year then consider menopausal. Contraceptive options reviewed and information provided. 3) STD screening: Declined STD check. 4) Follow up one year or sooner as needed Sherry Philip MD Referring Provider: KANNAN GAMBLE) [[id number]] Allergies As of Date: 02/24/2018 Noted Allergy Reaction AUGMENTIN (AMOXICILLIN-POT CLAVUL*07/22/2017 11 - Vomiting BACTRIM (SULFAMETHOXAZOLE-TRIMETH*07/22/2017 14 - Other: See Comments Comments: Chest pain BUSPAR (BUSPIRONE HCL) 10/22/2017 14 - Other: See Comments Comments: Night terrors LASIX (FUROSEMIDE) 07/22/2017 7 - Swelling Date Reviewed: 02/24/2018 Reviewed by: Sherry Philip - Fully Assessed Reason for Visit: Yearly Exam [187] Primary Visit Diagnosis:Secondary amenorrhea [N91.1] Other Visit Diagnoses:Encounter for gynecological examination (general) (routine) without abnormal findings [Z01.419] Screening for cervical cancer [Z12.4] Encounter for screening for human papillomavirus (HPV) [Z11.51] Encounter for screening mammogram for breast cancer [Z12.31] Order(s):PAP FLUID CERVICAL SCREENING [[id number]] Order #: [id number] KASH SCREENING [[id number]] Order #: [id number] FUTURE FSH BLD [SQFSH] Order #: [id number] FUTURE ESTRONE BLD [SQEST] Order #: [id number] FUTURE PROLACTIN BLD [SQPROL] Order #: [id number] FUTURE Prescriptions as of 02/24/2018 Sig: INSULIN GLARGINE (U-100) 100 * Inject 7 Units subcutaneously* HYDROXYZINE PAMOATE 50 MG CAP* Take 1 capsule by mouth four * NORCO ORAL Take by mouth as needed. PANTOPRAZOLE 40 MG TABLET,DEL* Take 1 tablet by mouth twice * QUETIAPINE 25 MG TABLET Take 1 tablet by mouth daily * HEPARIN (PORCINE) 5,000 UNIT/* 1 mL by INJECTION(UNSPECIFIED* MELATONIN 5 MG TABLET Take 1 tablet by mouth daily * ACETAMINOPHEN 325 MG CAPSULE Take by mouth every 4 hours a* GENTAMICIN 0.1 % TOPICAL CREAM HUMALOG KWIKPEN (U-100) INSUL* Sliding Scale: <60 >400 Call* SEVELAMER HCL 800 MG TABLET Take 800 mg by mouth three ti* CYCLOBENZAPRINE 10 MG TABLET Take 1 tablet by mouth three * AMLODIPINE 10 MG TABLET 1 tablet once daily. INSULIN ASPART U-100 100 UNI* Inject subcutaneously three t* DOCUSATE SODIUM 100 MG CAPSULE Take 100 mg by mouth once kailash* CALCIUM ACETATE 667 MG CAPSULE [employer] RX 1 MG-60 MG-300 MCG* Problem List As Of Date 02/24/2018 Noted Resolved ESRD (end stage renal disease) (HCC) [N18.6] INVALID FOR* More... Multiple gastric ulcers [K25.9] Anxiety [F41.9] Depression [F32.9] Diabetes mellitus (HCC) [E11.9] Hypertension [I10] Medications Discontinued During This Encounter sertraline (ZOLOFT) 100 mg tablet 30 t* 2 12/10/2017 02/24/2018 Route: ORAL Sig: Take 1 tablet by mouth once daily. Patient not taking: Reported on 02/12/2018 Disc: Reason for discontinue is not on file. Disposition: Return in 1 year (on 02/24/2019) for Annual Exam. Follow-up and Disposition History Recorded Encounter Status:Closed by SHERRY PHILIP MD on 02/24/18 SURGERY VISIT REPORT Observed: 02/19/2018 Status: F Source: [place] 10:08 AM [facility] REPOSITORY [facility] [address] [place] [address]. [address] [place] [address] OFFICE VISIT Date of Service: 02/19/18 MR#: [id number] Acct: [id number] Name: COLLETTE KELLY Rep #: [id number] : 1970 Provider: Guanakito Palafox MD Age/Sex: 47/F Location: [facility] Status: Signed Intake Intake Visit Reasons: PO Fistula Placement 01/27 Chief Complaint: post op fistula creation Shoe Singer Required: No Is patient in pain?: No Allergies amoxicillin [From Augmentin] Allergy (Verified 02/03/18 13:17) Hives clavulanic acid [From Augmentin] Allergy (Verified 02/03/18 13:17) Hives furosemide [From Lasix] Allergy (Verified 02/03/18 13:17) Swelling sulfamethoxazole [From Bactrim] Allergy (Verified 02/03/18 13:17) Chest tightness trimethoprim [From Bactrim] Allergy (Verified 02/03/18 13:17) Chest tightness Medications Insulin Glargine,Hum.rec.anlog [Lantus] 15 unit SQ BID 02/08/15 [History Confirmed 02/03/18] Lisinopril [Zestril] 10 mg PO DAILY 11/29/15 [History Confirmed 02/03/18] Metoprolol Tartrate [Lopressor (beta nato)] 12.5 mg PO DAILY 12/06/15 [History Confirmed 02/03/18] Is last menstrual period known: No Post menopausal: Yes Patient : No Subjective Details: 47-year-old female. She returns for surgical follow-up. I initially met the patient with the following evaluation. On January 27, 2018 I performed a stage I right upper extremity brachiobasilic arteriovenous fistula creation. She is returning now for postoperative follow-up. She was seen initially postoperatively by physician radiology assistant Laura Jasso. HPI HPI HPI: COLLETTE KELLY, is a 47 F who presents to the office today for surgical consultation regarding arteriovenous hemodialysis fistula creation. The patient is referred kindly by Dr. Cai and a written copy of my surgical consult recommendations will return to him 47-year-old female. She was accompanied by her . They estimate that she has been on some type of renal replacement therapy for 8 months. She started with peritoneal dialysis with a peritoneal dialysis catheter placed at [facility]. Apparently she then developed a yeast infection. She thinks for about 4 weeks she has had a right internal jugular tunneled dialysis catheter that was placed at [facility]. The details regarding her hospitalization there are indeterminate other than her said that she was quite ill and extensively hospitalized for several weeks. Apparently peptic ulcer disease and pneumonia may have complicated that hospitalization She apparently had the peritoneal dialysis catheters removed. She is on hemodialysis now. She has had a history of peptic ulcer disease. Complicating features include type 2 diabetes mellitus and long-term tobacco use disorder as well as her prolonged recent hospitalization. She is right arm dominant. She has significant lower extremity swelling/fluid retention. In addition on today's visit she has relatively new onset of left forearm swelling. She denies previous history of deep venous thrombosis. She had had a previous vein mapping procedure performed at [facility] on May 09, 2017. But this preceded her recent extensive hospitalization. It is of note that there was no particular extremity save for potential fistula. Objective Details: Alert, no acute distress Chest: Clear to auscultation with good effort bilaterally Cardiac: Regular rate and rhythm Abdomen: Soft, nontender, no hyper splenomegaly Extremities: Right upper extremity healing oblique antecubital incision with moderate residual induration. Strong pulse and thrill and bruit within the basilic vein. Warm right hand. Adequate capillary refill Neuro: Patient is alert awake aware of her situation and place Assessment AND Plan Problems 1. Chronic renal failure, stage 5 N18.5 Plan I have recommended the patient a stage II transposition right upper extremity basilic vein to brachial artery arteriovenous fistula creation. She is aware of the technique, benefits, risks, alternatives. We will schedule and proceed at her discretion. She is not on any anticoagulation at this setting. Guanakito Palafox M.D., F.A.C.S. CC: Dr. Isaías Prieto and Dr. Kannan Gamble Coding Level of Care Code Global Post Op Diagnoses Chronic renal failure, stage 5 N18.5 02/19/18 1008 <Electronically signed by Guanakito Palafox MD> Date Guanakito Palafox MD Cosigner Signature: Date (if applicable) CC: Alexander Gamble MD ALBUMIN/CREAT RATIO Collected: 02/12/2018 Status: F Source: [place] 1:06 PM [facility] [place] REPOSITORY TYPE CODE TESTS RESULT OUT OF REFERENCE UNITS RANGE LAB UCRR 20-300 mg/dL 27.4 Creatinine,Ur ine,Ran LAB UALBR 0.0-23.0 mg/L >4400.0 High Albumin Urine Random LAB UALBCR 0-30 mg/g Not Albumin/Creat calculated Ratio Performed By: #### UACR #### [facility] [address] [place], [place] [address] COMP METABOLIC PANEL Collected: 02/12/2018 Status: F Source: [place] 12:54 PM [facility] [place] REPOSITORY TYPE CODE TESTS RESULT OUT OF REFERENCE UNITS RANGE LAB TP 6.3-8.0 g/dL Protein, Total 7.4 LAB ALB 3.9-4.9 g/dL Low Albumin 3.7 LAB CA 8.5-10.2 mg/dL Calcium, Total 9.2 LAB TBIL 0.2-1.3 mg/dL Bilirubin, Total 0.2 LAB ALKP 34-123 U/L Alkaline High Phosphatase 502 LAB AST 13-35 U/L AST High 61 LAB GLU 74-99 mg/dL Glucose High 311 Result Comment: The [place] Diabetes Association (ADA) provides guidance for cutoff values for fasting glucose and random glucose. The ADA defines fasting as no caloric intake for at least 8 hours. Fas ting plasma glucose results between 100 to 125 mg/dL indicate increased risk for diabetes (prediabetes). Fasting plasma glucose results greater than or equal to 126 mg/dL meet the criteria for diagnosis of diabetes. In the absence of unequivocal hyperglycemia, results should be confirmed by repeat testing. In a patient with classic symptoms of hyperglycemia or hyperglycemic crisis, random plasma glucose results greater than or equal to 200 mg/dL meet the criteria for diagnosis of diabetes. Reference: Standards of Medical Care in Diabetes 2016, [place] Diabetes Association. Diabetes Care. 2016.39(Suppl 1). LAB BUN 7-21 mg/dL BUN High 38 LAB CRET 0.58-0.96 mg/dL Creatinine High 4.04 LAB NA 136-144 mmol/L Low Sodium 132 LAB K 3.7-5.1 mmol/L Potassium 4.9 LAB CL 97-105 mmol/L Low Chloride 90 LAB CO2 22-30 mmol/L CO2 27 LAB AGAP 9-18 mmol/L Anion Gap 15 LAB ALT 7-38 U/L ALT High 69 LAB GFRAA eGFR- Amer. 14 LAB GFRNAA . eGFR-All Other Races 12 Result Comment: eGFR (Estimated GFR) Units of measure: mL/min/1.73 meters squared eGFR is derived from the reexpressed MDRD Study equation using the following parameters: serum creatinine, age, gender and race. The creatinine assay has been calibrated to be traceable to IDMS. An eGFR <60 mL/min/1.73m2 for >3 months is consistent with chronic kidney disease. Refer to KDOQI guidelines for clinical interpretation. In patients with unstable renal function, e.g. those with acute kidney injury, the eGFR may not accurately reflect actual GFR. Performed By: #### CMP, LIPNF, TSH, FT4, T3, HBA1C, MICRO #### [facility] [address] [place] [id number] LIPID PANEL, NONFAST Collected: 02/12/2018 Status: F Source: [place] 12:54 PM [facility] [place] REPOSITORY TYPE CODE TESTS RESULT OUT OF REFERENCE UNITS RANGE LAB CHOLNF <200 mg/dL Total Cholesterol NF 152 Result Comment: <200 mg/dL, Desirable 200-239 mg/dL, Borderline high >239 mg/dL, High LAB TRIGNF <150 mg/dL Triglycerides, NF 51 Result Comment: <150 mg/dL, Normal 150-199 mg/dL, Borderline high 200-499 mg/dL, High >499 mg/dL, Very high LAB HDLNF >39 mg/dL HDL Cholesterol, NF 71 Result Comment: 40-59 mg/dL, Acceptable >59 mg/dL, High: Negative risk factor for coronary heart disease <40 mg/dL, Low: Positive risk factor for coronary heart disease LAB LDLNF <100 mg/dL LDL Cholesterol, NF 71 Result Comment: <100 mg/dL, Optimal 100-129 mg/dL, Near optimal/above optimal 130-159 mg/dL, Borderline high 160-189 mg/dL, High >189 mg/dL, Very high Secondary prevention optimal LDL Cholesterol levels are recommended to be < 70 mg/dL LAB NOHDLN <130 mg/dL Non HDL Chol, 81 NF Result Comment: <130 mg/dL, Optimal 130-159 mg/dL, Near optimal/above optimal 160-189 mg/dL, Borderline high 190-219 mg/dL, High >219 mg/dL, Very high Secondary prevention optimal non HDL Cholesterol levels are recommended to be < 100 mg/dL LAB VLDLNF <30 mg/dL VLDL Cholesterol, NF 10 LAB TCHDLN <5.10 mg/dL T Chol/HDL Ratio NF 2.14 LAB LDLHDN <2.54 mg/dL LDL/HDL Ratio, NF 1.00 Result Comment: Reference: 1. National Cholesterol Education Program ATP III Guideline At-A-Glance Quick Desk Reference: National Heart, Lung, and Blood [place]. National Institutes of Health. 2001: NIH Publication No. 01-3305. 2. An International Atherosclerosis Society position paper: global recommendations for the management of dyslipidemia: executive summary, Atherosclerosis. 2014: 232(2):410-413. Performed By: #### CMP, LIPNF, TSH, FT4, T3, HBA1C, MICRO #### [facility] [address] [place], [place] [address] TSH Collected: 02/12/2018 Status: F Source: [place] 12:54 PM [facility] [place] REPOSITORY TYPE CODE TESTS RESULT OUT OF RANGE REFERENCE UNITS LAB TSH 0.400-5.500 uU/mL TSH 3.310 Result Comment: If the patient is , TSH reference range varies by gestational period: First Trimester 0.100-2.500 uU/mL Second Trimester 0.200-3.000 uU/mL Third Trimester 0.300-3.000 uU/mL References: 1. Hunter L, Marcel M, David EK, et al. Management of Thyroid Dysfunction during and : An Endocrine Society Clinical Practice Guideline. J Clin Endocrinol Metab, 2012:97:2381-3281. 2. Tay TAYLOR. Overview of thyroid disease in . UpToDate. 2016. Accessed on August 04, 2015. Performed By: #### CMP, LIPNF, TSH, FT4, T3, HBA1C, MICRO #### [facility] [address] [place] [address] FREE T4 Collected: 02/12/2018 Status: F Source: [place] 12:54 PM [facility] REPOSITORY TYPE CODE TESTS RESULT OUT OF RANGE REFERENCE UNITS LAB FT4 0.9-1.7 ng/dL Free T4 1.2 Performed By: #### CMP, LIPNF, TSH, FT4, T3, HBA1C, MICRO #### [facility] [address] [place], [place] [address] T3 Collected: 02/12/2018 Status: F Source: [facility] 12:54 PM [place] REPOSITORY TYPE CODE TESTS RESULT OUT OF RANGE REFERENCE UNITS LAB T3 79-165 ng/dL Low T3 62 Performed By: #### CMP, LIPNF, TSH, FT4, T3, HBA1C, MICRO #### [facility] [address] [place], [place] [address] HEMOGLOBIN A1C Collected: 02/12/2018 Status: F Source: [place] 12:54 PM [facility] REPOSITORY TYPE CODE TESTS RESULT OUT OF REFERENCE UNITS RANGE LAB HGBA1C 4.3-5.6 % High Hemoglobin A1c 7.5 Result Comment: [place] Diabetes Association guidelines indicate that patients with HgbA1c in the range 5.7-6.4% are at increased risk for development of diabetes, and intervention by lifestyle modification may be beneficial. HgbA1c greater or equal to 6.5% is considered diagnostic of diabetes. LAB HBA0 mg/dL Est. Average Glucose 169 Result Comment: eAG: (Estimated average glucose) is a calculated value from HgbA1c and is artist representative of the average blood glucose level in the last 2-3 month period. Performed By: #### CMP, LIPNF, TSH, FT4, T3, HBA1C, MICRO #### [facility] [address] [place], [place] [address] TPO ANTIBODY Collected: 02/12/2018 Status: F Source: [place] 12:54 PM [facility] REPOSITORY TYPE CODE TESTS RESULT OUT OF REFERENCE UNITS RANGE LAB MICRO <5.6 IU/mL TPO Antibody <1.0 Performed By: #### CMP, LIPNF, TSH, FT4, T3, HBA1C, MICRO #### [facility] [address] [place], [place] [address] PROGRESS Observed: 02/12/2018 Status: COMPLETED Source: [place] 11:33 AM [facility] REPOSITORY HNO ID: [id number] Author: Kannan Narayanan) Tye Service: (none) Author Type: Physician Type: Progress Notes Filed: 02/14/2018 11:26 AM Note Text: Chief Complaint Patient presents with: 4 week follow up Establish Care HPI Collette Kelly is a 47 year old female who presents here today for establish care visit. Patient previously seeing Dr. Barrow for PCP, last OV was in summer of this year. Cellulitis on left arm has healed completely with Keflex as prescribed at last OV. Did not have side effects with Keflex. Denies rash elsewhere today. Noted on review of medications that she is not taking the Zoloft because she thought she was to be taking vistaril instead. Discussed difference between meds. Depression: Admits: feeling depressed, decreased energy/interest/concentration, sleep disturbance. Denies suicidal ideations. Anxiety: admits excessive worrying, racing thoughts, trouble concentrating, sleep disturbance, irritability. Denies panic symptoms. Using walker to ambulate around house and out in public. Has not had any falls since she has been using walker. Working regularly with PT/OT and is gaining strength and confidence. Patient is unsure if she had pneumovax in the past, would have been done at [place]. Asking we request labs instead of updating today. Has appointment scheduled on 02/24 for pap smear and mammogram with Dr. Sherry Rankin. No indication for colon cancer screening. Past medical history, appointments, medications, allergies reviewed and updated. Previous Medical History PAST MEDICAL HISTORY Diagnosis Date - Anxiety - Cellulitis - Depression - Diabetes mellitus (HCC) - ESRD (end stage renal disease) on dialysis ([facility]) 03/2017 Dr. Prieto, [facility] - Multiple gastric ulcers - Scoliosis - Tobacco use Previous Surgical History PAST SURGICAL HISTORY Procedure Laterality Date - DRAINAGE OF PILONIDAL CYST - PD CATHETER ANCHOR BELT - REMOVAL OF GALLBLADDER Family History FAMILY HISTORY Problem Relation Age of Onset - Diabetes Mother - Hypertension Mother - Diabetes Father - Hypertension Father Patient Allergies ALLERGIES Allergen Reactions - Augmentin [Amoxicil* Vomiting - Bactrim [Sulfametho* Other: See Comments Chest pain - Buspar [Buspirone H* Other: See Comments Night terrors - Lasix [Furosemide] Swelling Current Medications Current Outpatient Prescriptions on File Prior to Visit: acetaminophen 325 mg cap Take by mouth every 4 hours as needed. amLODIPine (NORVASC) 10 mg tablet 1 tablet once daily. calcium acetate (PHOSLO) 667 mg capsule cloNIDine HCl (CATAPRES) 0.1 mg tablet 1 tablet four times daily. cyclobenzaprine (FLEXERIL) 10 mg tablet Take 1 tablet by mouth three times daily as needed for Muscle Spasm. docusate sodium (COLACE) 100 mg capsule Take 100 mg by mouth once daily. Epoetin Jose (EPOGEN) 20,000 unit/2 mL soln Inject 2 mL subcutaneously every Friday and . fluconazole (DIFLUCAN) 200 mg tablet Take 1 tablet by mouth once daily. gentamicin 0.1% 0.1 % cream heparin sodium,porcine (HEPARIN, PORCINE,) 5,000 unit/mL (1 mL) crtg 1 mL by INJECTION(UNSPECIFIED PARENTERAL ROUTES) route every 8 hours. During dialysis HUMALOG KWIKPEN INSULIN 100 unit/mL inpn Sliding Scale:<60 >400 Call MD0-150 0 [id number] 5 [id number] 7 [id number]- 300 10 [id number] 12 [id number] 15 Units hydrocodone/acetaminophen (NORCO ORAL) Take by mouth as needed. hydrOXYzine pamoate (VISTARIL) 50 mg capsule Take 1 capsule by mouth four times daily as needed for Anxiety. insulin aspart U-100 (NOVOLOG FLEXPEN U-100 INSULIN) 100 unit/mL inpn Inject subcutaneously three times daily with meals. sliding scale insulin glargine (LANTUS U-100 INSULIN) 100 unit/mL injection Inject 5 Units subcutaneously daily at bedtime. ipratropium-albuterol (DUONEB) 0.5 mg-3 mg(2.5 mg base)/3 mL nebu Inhale 3 mL as instructed four times daily as needed (shortness of breath or wheezing). Unit dose pack melatonin 5 mg tablet Take 1 tablet by mouth daily at bedtime. nicotine polacrilex (NICORETTE) 2 mg gum Chew 1 each as directed as needed ondansetron orally disintegrating (ZOFRAN ODT) 4 mg disintegrating tablet Take 1 tablet by mouth every 6 hours as needed for Nausea/Vomiting. pantoprazole DR (PROTONIX) 40 mg tablet Take 1 tablet by mouth twice daily. QUEtiapine (SEROQUEL) 25 mg tablet Take 1 tablet by mouth daily at bedtime. sertraline (ZOLOFT) 100 mg tablet Take 1 tablet by mouth once daily. sevelamer (RENAGEL) 800 mg tablet Take 800 mg by mouth three times daily with meals. sodium chloride (SALINE MIST) 0.65 % nasal spray 2 sprays each nostril every 2 hours as needed dry nasal passages vancomycin 1,000 mg injection Inject 1,000 mg intravenously every Friday, Friday, and Friday. Infuse after dialysis [employer] RX tablet No current facility-administered medications on file prior to visit. Social History Social History Marital status: Spouse name: Rich Years of education: Number of children: 3 Occupational History Occupation Employer Comment unemployed Social History Main Topics Smoking status: Current Every Day Smoker Packs/day: 0.00 Years: 20.00 Types: Cigarettes Smokeless tobacco: Never Used Alcohol use: No Other Topics Concern Service No Blood Transfusions Yes Caffeine Concern No Exercise No Review of Symptoms REVIEW OF SYSTEMS GENERAL: No weight loss, malaise or fevers RESPIRATORY: Negative for cough, hemoptysis, wheezing, COPD, dyspnea or shortness of breath CARDIOVASCULAR: Negative for chest pain, leg swelling, hypertension, CHF or palpitations GI: No nausea, vomiting, or diarrhea SKIN: Negative for lesions, rash, and itching EXAM: BP 130/72 Pulse 72 Temp 36.6 ?C (97.8 ?F) (Tympanic) Resp 16 Wt 78.5 kg (173 lb) BMI 26.30 kg/m? General Appearance: Well appearing, alert, in no acute distress, well-hydrated, well nourished.. Skin: Skin color, texture, turgor normal, no suspicious rashes or lesions. Lungs: lungs clear to auscultation. No wheezing, rhonchi, rales. Heart: RRR without murmur, gallop, or rubs. No ectopy. Abdomen: Normal abdominal exam, Abdomen soft, non-tender. Bowel sounds normal. No masses, organomegaly. Extremities: 2+ edema to knees bilaterally. Health Maintenance List HBA1C due on 11/14/1976 URINE ALBUMIN:CREATININE RATIO due on 11/14/1981 DIABETIC FOOT EXAM due on 11/14/1981 ONE PNEUMOVAX PRIOR TO AGE 65 due on 1987 LDL CHOLESTEROL due on 11/14/1989 BP CONTROLLED (<130/80) due on 11/14/1989 PAP EVERY 5 YEARS due on 11/14/2001 HPV EVERY 5 YEARS due on 11/14/2001 MAMMOGRAM due on 2011 DTAP,TDAP,TD(1 - Tdap) due on 11/07/2017 DILATED RETINAL EXAM due on 10/27/2018 SERUM CREATININE due on 12/10/2018 ANNUAL PCP TEAM CHRONIC DISEASE VISIT due on 01/27/2019 INFLUENZA Completed Data reviewed Component Latest Ref Rng AND Units 07/22/2017 12/10/2017 12/10/2017 11:54 AM 12:03 PM WBC 3.70 - 11.00 k/uL 8.45 11.19 (H) RBC 3.90 - 5.20 m/uL 4.20 2.86 (L) Hemoglobin 11.5 - 15.5 g/dL 12.4 8.5 (L) Hematocrit 36.0 - 46.0 % 38.0 26.3 (L) MCV 80.0 - 100.0 fL 90.5 92.0 MCH 26.0 - 34.0 pG 29.5 29.7 MCHC 30.5 - 36.0 g/dL 32.6 32.3 RDW-CV 11.5 - 15.0 % 14.3 13.2 Platelet Count 150 - 400 k/uL 222 429 (H) MPV 9.0 - 12.7 fL 10.8 9.3 Neut% % 78.0 Abs Neut (ANC) 1.45 - 7.50 k/uL 8.72 (H) Lymph% % 9.3 Abs Lymph 1.00 - 4.00 k/uL 1.04 Iron% % 11.5 Abs Iron <0.87 k/uL 1.29 (H) Eosin% % 0.8 Abs Eosin <0.46 k/uL 0.09 Baso% % 0.4 Abs Baso <0.11 k/uL 0.05 Nucleated Reds 0 /100 WBC 0.0 Absolute nRBC <0.01 k/uL <0.01 <0.01 Diff Type Auto Diff Protein, Total 6.3 - 8.0 g/dL 7.3 6.9 Test reordered by [facility]. Albumin 3.9 - 4.9 g/dL 3.7 (L) 2.6 (L) Test reordered by [facility]. Calcium 8.5 - 10.2 mg/dL 8.4 (L) 8.5 Test reordered by [facility]. Bilirubin, Total 0.2 - 1.3 mg/dL 0.2 0.2 Test reordered by [facility]. Alkaline Phosphatase 34 - 123 U/L 128 (H) 208 (H) Test reordered by [facility]. AST 13 - 35 U/L 24 24 Test reordered by [facility]. Glucose 74 - 99 mg/dL 508 (H) 65 (L) Test reordered by [facility]. BUN 7 - 21 mg/dL 37 (H) 48 (H) Test reordered by [facility]. Creatinine 0.58 - 0.96 mg/dL 5.03 (H) 9.38 (H) Test reordered by [facility]. Sodium 136 - 144 mmol/L 134 (L) 136 Test reordered by [facility]. Potassium 3.7 - 5.1 mmol/L 4.5 5.2 (H) Test reordered by [facility]. Chloride 97 - 105 mmol/L 89 (L) 90 (L) Test reordered by [facility]. CO2 22 - 30 mmol/L 29 19 (L) Test reordered by [facility]. Anion Gap 9 - 18 mmol/L 16 27 (H) Test reordered by [facility]. ALT 7 - 38 U/L 30 30 Test reordered by [facility]. eGFR- 11 5 Test reordered by [facility]. eGFR-All Other Races . 9 5 Test reordered by [facility]. eGFR-Pediatric Factor Test reordered by [facility]. ASSESSMENT/PLAN: 1. Type 2 diabetes mellitus with chronic kidney disease on chronic dialysis, with long-term current use of insulin ([facility]) - ICD9: 250.40, 585.9, V45.11, V58.67, ICD10: E11.22, N18.6, Z99.2, Z79.4 (primary diagnosis) Will obtain blood work and f/u in 4-6 weeks to discuss DM and treatment. Continue current regimen. - COMP METABOLIC PANEL - HGB A1C - ALBUMIN/CREAT RATIO RND UR - LIPID PANEL, NONFASTING 2. Essential hypertension - ICD9: 401.9, ICD10: I10 - good control - Continue current medication(s) - Encouraged dietary sodium restriction/DASH diet - Recommended regular aerobic exercise. - Reviewed risks of HTN and principles of treatment - Goal of BP <140/90 3. Moderate episode of recurrent major depressive disorder (HCC) - ICD9: 296.32, ICD10: F33.1 Restart Zoloft. Recheck in 6 weeks. 4. Anxiety - ICD9: 300.00, ICD10: F41.9 Restart Zoloft. Recheck in 6 weeks. 5. ESRD (end stage renal disease) (HCC) - ICD9: 585.6, ICD10: N18.6 Recommendations per nephrology. Continue dialysis. 6. Weakness of both lower extremities - ICD9: 729.89, ICD10: R29.898 Continue PT/OT. Kannan Gamble MD CNOV Observed: 02/12/2018 Status: COMPLETED Source: [place] 11:20 AM [facility] REPOSITORY Office Visit (FAMPWS) COLLETTE KELLY ([id number]) 1970 F TRN Date Time Provider Department 02/12/18 11:20 AM KANNAN GAMBLE) FAMPWS During your visit today, we recorded the following information about you: Temperature Pulse Respiration Blood pressure 97.8 degrees 72/minute 16/minute 130/72 Weight 78.5 kg Kannan Gamble MD 02/14/2018 11:26 AM Signed Chief Complaint Patient presents with: 4 week follow up Establish Care HPI Collette Kelly is a 47 year old female who presents here today for establish care visit. Patient previously seeing Dr. Barrow for PCP, last OV was in summer of this year. Cellulitis on left arm has healed completely with Keflex as prescribed at last OV. Did not have side effects with Keflex. Denies rash elsewhere today. Noted on review of medications that she is not taking the Zoloft because she thought she was to be taking vistaril instead. Discussed difference between meds. Depression: Admits: feeling depressed, decreased energy/interest/concentration, sleep disturbance. Denies suicidal ideations. Anxiety: admits excessive worrying, racing thoughts, trouble concentrating, sleep disturbance, irritability. Denies panic symptoms. Using walker to ambulate around house and out in public. Has not had any falls since she has been using walker. Working regularly with PT/OT and is gaining strength and confidence. Patient is unsure if she had pneumovax in the past, would have been done at [place]. Asking we request labs instead of updating today. Has appointment scheduled on 02/24 for pap smear and mammogram with Dr. Sherry Rankin. No indication for colon cancer screening. Past medical history, appointments, medications, allergies reviewed and updated. Previous Medical History PAST MEDICAL HISTORY Diagnosis Date - Anxiety - Cellulitis - Depression - Diabetes mellitus (HCC) - ESRD (end stage renal disease) on dialysis ([facility]) 03/2017 Dr. Prieto, [facility] - Multiple gastric ulcers - Scoliosis - Tobacco use Previous Surgical History PAST SURGICAL HISTORY Procedure Laterality Date - DRAINAGE OF PILONIDAL CYST - PD CATHETER ANCHOR BELT - REMOVAL OF GALLBLADDER Family History FAMILY HISTORY Problem Relation Age of Onset - Diabetes Mother - Hypertension Mother - Diabetes Father - Hypertension Father Patient Allergies ALLERGIES Allergen Reactions - Augmentin [Amoxicil* Vomiting - Bactrim [Sulfametho* Other: See Comments Chest pain - Buspar [Buspirone H* Other: See Comments Night terrors - Lasix [Furosemide] Swelling Current Medications Current Outpatient Prescriptions on File Prior to Visit: acetaminophen 325 mg cap Take by mouth every 4 hours as needed. amLODIPine (NORVASC) 10 mg tablet 1 tablet once daily. calcium acetate (PHOSLO) 667 mg capsule cloNIDine HCl (CATAPRES) 0.1 mg tablet 1 tablet four times daily. cyclobenzaprine (FLEXERIL) 10 mg tablet Take 1 tablet by mouth three times daily as needed for Muscle Spasm. docusate sodium (COLACE) 100 mg capsule Take 100 mg by mouth once daily. Epoetin Jose (EPOGEN) 20,000 unit/2 mL soln Inject 2 mL subcutaneously every Friday and . fluconazole (DIFLUCAN) 200 mg tablet Take 1 tablet by mouth once daily. gentamicin 0.1% 0.1 % cream heparin sodium,porcine (HEPARIN, PORCINE,) 5,000 unit/mL (1 mL) crtg 1 mL by INJECTION(UNSPECIFIED PARENTERAL ROUTES) route every 8 hours. During dialysis HUMALOG KWIKPEN INSULIN 100 unit/mL inpn Sliding Scale:<60 >400 Call [id number] 0 [id number] 5 [id number] 7 [id number] 10 [id number] 12 [id number] 15 Units hydrocodone/acetaminophen (NORCO ORAL) Take by mouth as needed. hydrOXYzine pamoate (VISTARIL) 50 mg capsule Take 1 capsule by mouth four times daily as needed for Anxiety. insulin aspart U-100 (NOVOLOG FLEXPEN U-100 INSULIN) 100 unit/mL inpn Inject subcutaneously three times daily with meals. sliding scale insulin glargine (LANTUS U-100 INSULIN) 100 unit/mL injection Inject 5 Units subcutaneously daily at bedtime. ipratropium-albuterol (DUONEB) 0.5 mg-3 mg(2.5 mg base)/3 mL nebu Inhale 3 mL as instructed four times daily as needed (shortness of breath or wheezing). Unit dose pack melatonin 5 mg tablet Take 1 tablet by mouth daily at bedtime. nicotine polacrilex (NICORETTE) 2 mg gum Chew 1 each as directed as needed ondansetron orally disintegrating (ZOFRAN ODT) 4 mg disintegrating tablet Take 1 tablet by mouth every 6 hours as needed for Nausea/Vomiting. pantoprazole DR (PROTONIX) 40 mg tablet Take 1 tablet by mouth twice daily. QUEtiapine (SEROQUEL) 25 mg tablet Take 1 tablet by mouth daily at bedtime. sertraline (ZOLOFT) 100 mg tablet Take 1 tablet by mouth once daily. sevelamer (RENAGEL) 800 mg tablet Take 800 mg by mouth three times daily with meals. sodium chloride (SALINE MIST) 0.65 % nasal spray 2 sprays each nostril every 2 hours as needed dry nasal passages vancomycin 1,000 mg injection Inject 1,000 mg intravenously every Friday, Friday, and Friday. Infuse after dialysis [employer] RX tablet No current facility-administered medications on file prior to visit. Social History Social History Marital status: Spouse name: Mateusz Years of education: Number of children: 3 Occupational History Occupation Employer Comment unemployed Social History Main Topics Smoking status: Current Every Day Smoker Packs/day: 0.00 Years: 20.00 Types: Cigarettes Smokeless tobacco: Never Used Alcohol use: No Other Topics Concern Service No Blood Transfusions Yes Caffeine Concern No Exercise No Review of Symptoms REVIEW OF SYSTEMS GENERAL: No weight loss, malaise or fevers RESPIRATORY: Negative for cough, hemoptysis, wheezing, COPD, dyspnea or shortness of breath CARDIOVASCULAR: Negative for chest pain, leg swelling, hypertension, CHF or palpitations GI: No nausea, vomiting, or diarrhea SKIN: Negative for lesions, rash, and itching EXAM: BP 130/72 Pulse 72 Temp 36.6 ?C (97.8 ?F) (Tympanic) Resp 16 Wt 78.5 kg (173 lb) BMI 26.30 kg/m? General Appearance: Well appearing, alert, in no acute distress, well-hydrated, well nourished.. Skin: Skin color, texture, turgor normal, no suspicious rashes or lesions. Lungs: lungs clear to auscultation. No wheezing, rhonchi, rales. Heart: RRR without murmur, gallop, or rubs. No ectopy. Abdomen: Normal abdominal exam, Abdomen soft, non-tender. Bowel sounds normal. No masses, organomegaly. Extremities: 2+ edema to knees bilaterally. Health Maintenance List HBA1C due on 11/14/1976 URINE ALBUMIN:CREATININE RATIO due on 11/14/1981 DIABETIC FOOT EXAM due on 11/14/1981 ONE PNEUMOVAX PRIOR TO AGE 65 due on 1987 LDL CHOLESTEROL due on 11/14/1989 BP CONTROLLED (<130/80) due on 11/14/1989 PAP EVERY 5 YEARS due on 11/14/2001 HPV EVERY 5 YEARS due on 11/14/2001 MAMMOGRAM due on 2011 DTAP,TDAP,TD(1 - Tdap) due on 11/07/2017 DILATED RETINAL EXAM due on 10/27/2018 SERUM CREATININE due on 12/10/2018 ANNUAL PCP TEAM CHRONIC DISEASE VISIT due on 01/27/2019 INFLUENZA Completed Data reviewed Component Latest Ref Rng AND Units 07/22/2017 12/10/2017 12/10/2017 11:54 AM 12:03 PM WBC 3.70 - 11.00 k/uL 8.45 11.19 (H) RBC 3.90 - 5.20 m/uL 4.20 2.86 (L) Hemoglobin 11.5 - 15.5 g/dL 12.4 8.5 (L) Hematocrit 36.0 - 46.0 % 38.0 26.3 (L) MCV 80.0 - 100.0 fL 90.5 92.0 MCH 26.0 - 34.0 pG 29.5 29.7 MCHC 30.5 - 36.0 g/dL 32.6 32.3 RDW-CV 11.5 - 15.0 % 14.3 13.2 Platelet Count 150 - 400 k/uL 222 429 (H) MPV 9.0 - 12.7 fL 10.8 9.3 Neut% % 78.0 Abs Neut (ANC) 1.45 - 7.50 k/uL 8.72 (H) Lymph% % 9.3 Abs Lymph 1.00 - 4.00 k/uL 1.04 Iron% % 11.5 Abs Iron <0.87 k/uL 1.29 (H) Eosin% % 0.8 Abs Eosin <0.46 k/uL 0.09 Baso% % 0.4 Abs Baso <0.11 k/uL 0.05 Nucleated Reds 0 /100 WBC 0.0 Absolute nRBC <0.01 k/uL <0.01 <0.01 Diff Type Auto Diff Protein, Total 6.3 - 8.0 g/dL 7.3 6.9 Test reordered by [facility]. Albumin 3.9 - 4.9 g/dL 3.7 (L) 2.6 (L) Test reordered by [facility]. Calcium 8.5 - 10.2 mg/dL 8.4 (L) 8.5 Test reordered by [facility]. Bilirubin, Total 0.2 - 1.3 mg/dL 0.2 0.2 Test reordered by [facility]. Alkaline Phosphatase 34 - 123 U/L 128 (H) 208 (H) Test reordered by [facility]. AST 13 - 35 U/L 24 24 Test reordered by [facility]. Glucose 74 - 99 mg/dL 508 (H) 65 (L) Test reordered by [facility]. BUN 7 - 21 mg/dL 37 (H) 48 (H) Test reordered by [facility]. Creatinine 0.58 - 0.96 mg/dL 5.03 (H) 9.38 (H) Test reordered by [facility]. Sodium 136 - 144 mmol/L 134 (L) 136 Test reordered by [facility]. Potassium 3.7 - 5.1 mmol/L 4.5 5.2 (H) Test reordered by [facility]. Chloride 97 - 105 mmol/L 89 (L) 90 (L) Test reordered by [facility]. CO2 22 - 30 mmol/L 29 19 (L) Test reordered by [facility]. Anion Gap 9 - 18 mmol/L 16 27 (H) Test reordered by [facility]. ALT 7 - 38 U/L 30 30 Test reordered by [facility]. eGFR- 11 5 Test reordered by [facility]. eGFR-All Other Races . 9 5 Test reordered by [facility]. eGFR-Pediatric Factor Test reordered by [facility]. ASSESSMENT/PLAN: 1. Type 2 diabetes mellitus with chronic kidney disease on chronic dialysis, with long-term current use of insulin (HCC) - ICD9: 250.40, 585.9, V45.11, V58.67, ICD10: E11.22, N18.6, Z99.2, Z79.4 (primary diagnosis) Will obtain blood work and f/u in 4-6 weeks to discuss DM and treatment. Continue current regimen. - COMP METABOLIC PANEL - HGB A1C - ALBUMIN/CREAT RATIO RND UR - LIPID PANEL, NONFASTING 2. Essential hypertension - ICD9: 401.9, ICD10: I10 - good control - Continue current medication(s) - Encouraged dietary sodium restriction/DASH diet - Recommended regular aerobic exercise. - Reviewed risks of HTN and principles of treatment - Goal of BP <140/90 3. Moderate episode of recurrent major depressive disorder (HCC) - ICD9: 296.32, ICD10: F33.1 Restart Zoloft. Recheck in 6 weeks. 4. Anxiety - ICD9: 300.00, ICD10: F41.9 Restart Zoloft. Recheck in 6 weeks. 5. ESRD (end stage renal disease) (HCC) - ICD9: 585.6, ICD10: N18.6 Recommendations per nephrology. Continue dialysis. 6. Weakness of both lower extremities - ICD9: 729.89, ICD10: R29.898 Continue PT/OT. Kannan Gamble MD Referring Provider: KANNAN GAMBLE) [[id number]] Allergies As of Date: 02/12/2018 Noted Allergy Reaction AUGMENTIN (AMOXICILLIN-POT CLAVUL*07/22/2017 11 - Vomiting BACTRIM (SULFAMETHOXAZOLE-TRIMETH*07/22/2017 14 - Other: See Comments Comments: Chest pain BUSPAR (BUSPIRONE HCL) 10/22/2017 14 - Other: See Comments Comments: Night terrors LASIX (FUROSEMIDE) 07/22/2017 7 - Swelling Date Reviewed: 02/12/2018 Reviewed by: Charissa Manriquez LPN - Fully Assessed Reason for Visit: 4 week follow up [Other] Establish Care [42] Primary Visit Diagnosis:Type 2 diabetes mellitus with chronic kidney disease on chronic dialysis, with long-term current use of insulin ([facility]) [E11.22, N18.6, Z99.2, Z79.4] Other Visit Diagnoses:Essential hypertension [I10] Moderate episode of recurrent major depressive disorder (HCC) [F33.1] Anxiety [F41.9] ESRD (end stage renal disease) (HCC) [N18.6] Weakness of both lower extremities [R29.898] Order(s):COMP METABOLIC PANEL [SQCMP] Order #: [id number] FUTURE HGB A1C [GBAAN1D] Order #: [id number] FUTURE ALBUMIN/CREAT RATIO RND UR [SQUACR] Order #: [id number] FUTURE LIPID PANEL, NONFASTING [SQLIPNF] Order #: [id number] FUTURE Prescriptions as of 02/12/2018 Sig: ACETAMINOPHEN 325 MG CAPSULE Take by mouth every 4 hours a* AMLODIPINE 10 MG TABLET 1 tablet once daily. CALCIUM ACETATE 667 MG CAPSULE CYCLOBENZAPRINE 10 MG TABLET Take 1 tablet by mouth three * DOCUSATE SODIUM 100 MG CAPSULE Take 100 mg by mouth once kailash* GENTAMICIN 0.1 % TOPICAL CREAM HEPARIN (PORCINE) 5,000 UNIT/* 1 mL by INJECTION(UNSPECIFIED* HUMALOG KWIKPEN (U-100) INSUL* Sliding Scale: <60 >400 Call* NORCO ORAL Take by mouth as needed. HYDROXYZINE PAMOATE 50 MG CAP* Take 1 capsule by mouth four * INSULIN ASPART U-100 100 UNI* Inject subcutaneously three t* INSULIN GLARGINE (U-100) 100 * Inject 5 Units subcutaneously* MELATONIN 5 MG TABLET Take 1 tablet by mouth daily * PANTOPRAZOLE 40 MG TABLET,DEL* Take 1 tablet by mouth twice * QUETIAPINE 25 MG TABLET Take 1 tablet by mouth daily * SEVELAMER HCL 800 MG TABLET Take 800 mg by mouth three ti* SERTRALINE 100 MG TABLET Take 1 tablet by mouth once d* Patient not taking: Reported on 02/12/2018 [employer] RX 1 MG-60 MG-300 MCG* Problem List As Of Date 02/12/2018 Noted Resolved ESRD (end stage renal disease) ([facility]) [N18.6] INVALID FOR* More... Multiple gastric ulcers [K25.9] Anxiety [F41.9] Depression [F32.9] Diabetes mellitus (HCC) [E11.9] Hypertension [I10] Medications Discontinued During This Encounter vancomycin 1,000 mg injection 01/07/2018 02/12/2018 Class: Med Update Route: INTRAVENOUS Sig: Inject 1,000 mg intravenously every Friday, Friday, and Friday. Infuse after dialysis Patient not taking: Reported on 02/12/2018 Disc: Reason for discontinue is not on file. sodium chloride (SALINE MIST) 0.65 %* 01/07/2018 02/12/2018 Class: Med Update Si sprays each nostril every 2 hours as needed dry nasal passages Patient not taking: Reported on 02/12/2018 Disc: Reason for discontinue is not on file. cloNIDine HCl (CATAPRES) 0.1 mg tabl* 10/22/2017 02/12/2018 Class: Med Update Si tablet four times daily. Patient not taking: Reported on 02/12/2018 Disc: Reason for discontinue is not on file. ipratropium-albuterol (DUONEB) 0.5 m* 01/07/2018 02/12/2018 Class: Med Update Route: INHALATION Sig: Inhale 3 mL as instructed four times daily as needed (shortness of breath or wheezing). Unit dose pack Patient not taking: Reported on 02/12/2018 Disc: Reason for discontinue is not on file. ondansetron orally disintegrating (Z* 01/07/2018 02/12/2018 Class: Med Update Route: ORAL Sig: Take 1 tablet by mouth every 6 hours as needed for Nausea/Vomiting. Patient not taking: Reported on 02/12/2018 Disc: Reason for discontinue is not on file. nicotine polacrilex (NICORETTE) 2 mg* 100 * 3 01/07/2018 02/12/2018 Sig: Chew 1 each as directed as needed Patient not taking: Reported on 02/12/2018 Disc: Reason for discontinue is not on file. fluconazole (DIFLUCAN) 200 mg tablet 30 t* 0 01/06/2018 02/12/2018 Route: ORAL Sig: Take 1 tablet by mouth once daily. Patient not taking: Reported on 02/12/2018 Disc: Reason for discontinue is not on file. Epoetin Jose (EPOGEN) 20,000 unit/2 * 01/08/2018 02/12/2018 Class: Med Update Route: SUBCUTANEOUS Sig: Inject 2 mL subcutaneously every Friday and . Patient not taking: Reported on 02/12/2018 Disc: Reason for discontinue is not on file. Disposition: Return in about 6 weeks (around 03/26/2018). Follow-up and Disposition History Recorded Encounter Status:Closed by KANNAN GAMBLE MD on 02/14/18 PROGRESS Observed: 02/06/2018 Status: COMPLETED Source: [place] 5:14 PM [facility] REPOSITORY HNO ID: [id number] Author: Kannan Narayanan) Tye Service: (none) Author Type: Physician Type: Progress Notes Filed: 02/06/2018 5:14 PM Note Text: Glad to hear she is improving. Thanks. PROGRESS Observed: 02/06/2018 Status: COMPLETED Source: [place] 4:42 PM [facility] REPOSITORY HNO ID: [id number] Author: Tracey Escalante) Adan Service: (none) Author Type: Registered Nurse Type: Progress Notes Filed: 02/06/2018 4:43 PM Note Text: TRANSITION CARE MANAGEMENT (TCM) FOLLOW-UP NOTE Provider Action/FYI FYI Patient identified by name and date of : YES Spoke to spouse Summary: TC to spouse, states pt is having one of the best days she's had in a long time. Working with PT/OT and getting stronger but still weak and fatigued. Manager Project plan for next outreach: Will follow up 3 weeks Signature Tracey Arellano RN February 06, 2018 CNPTOUTREACH Observed: 02/06/2018 Status: COMPLETED Source: [place] 12:00 AM [facility] REPOSITORY Patient Outreach (FAMPWS) COLLETTE KELLY ([id number]) 1970 F TRN Date Time Provider Department 02/06/18 TRACEY ARELLANO) RENETTA During your visit today, we recorded the following information about you: Tracey Arellano RN 02/06/2018 4:43 PM Signed TRANSITION CARE MANAGEMENT (TCM) FOLLOW-UP NOTE Provider Action/FYI FYI Patient identified by name and date of : YES Spoke to spouse Summary: TC to spouse, states pt is having one of the best days she's had in a long time. Working with PT/OT and getting stronger but still weak and fatigued. Manager Project plan for next outreach: Will follow up 3 weeks Signature Tracey Arellano RN February 06, 2018 Kannan Gamble MD 02/06/2018 5:14 PM Signed Glad to hear she is improving. Thanks. Allergies As of Date: 02/06/2018 Noted Allergy Reaction AUGMENTIN (AMOXICILLIN-POT CLAVUL*07/22/2017 11 - Vomiting BACTRIM (SULFAMETHOXAZOLE-TRIMETH*07/22/2017 14 - Other: See Comments Comments: Chest pain BUSPAR (BUSPIRONE HCL) 10/22/2017 14 - Other: See Comments Comments: Night terrors LASIX (FUROSEMIDE) 07/22/2017 7 - Swelling Date Reviewed: 01/27/2018 Reviewed by: Sharlene Thornton ([place]) HAYDEE Dempsey - Fully Assessed Reason for Visit: [facility] Follow Up [4313] Cmt: TCM F/U Prescriptions as of 02/06/2018 Sig: ACETAMINOPHEN 325 MG CAPSULE Take by mouth every 4 hours a* AMLODIPINE 10 MG TABLET 1 tablet once daily. CALCIUM ACETATE 667 MG CAPSULE CLONIDINE HCL 0.1 MG TABLET 1 tablet four times daily. CYCLOBENZAPRINE 10 MG TABLET Take 1 tablet by mouth three * DOCUSATE SODIUM 100 MG CAPSULE Take 100 mg by mouth once kailash* EPOETIN JOSE 20,000 UNIT/2 ML* Inject 2 mL subcutaneously ev* FLUCONAZOLE 200 MG TABLET Take 1 tablet by mouth once d* GENTAMICIN 0.1 % TOPICAL CREAM HEPARIN (PORCINE) 5,000 UNIT/* 1 mL by INJECTION(UNSPECIFIED* HUMALOG KWIKPEN (U-100) INSUL* Sliding Scale: <60 >400 Call* NORCO ORAL Take by mouth as needed. HYDROXYZINE PAMOATE 50 MG CAP* Take 1 capsule by mouth four * INSULIN ASPART U-100 100 UNI* Inject subcutaneously three t* INSULIN GLARGINE (U-100) 100 * Inject 5 Units subcutaneously* IPRATROPIUM-ALBUTEROL 0.5 MG-* Inhale 3 mL as instructed fou* MELATONIN 5 MG TABLET Take 1 tablet by mouth daily * NICOTINE (POLACRILEX) 2 MG GUM Chew 1 each as directed as ne* ONDANSETRON 4 MG DISINTEGRATI* Take 1 tablet by mouth every * PANTOPRAZOLE 40 MG TABLET,DEL* Take 1 tablet by mouth twice * QUETIAPINE 25 MG TABLET Take 1 tablet by mouth daily * SERTRALINE 100 MG TABLET Take 1 tablet by mouth once d* SEVELAMER HCL 800 MG TABLET Take 800 mg by mouth three ti* SODIUM CHLORIDE 0.65 % NASAL * 2 sprays each nostril every 2* VANCOMYCIN 1,000 MG INTRAVENO* Inject 1,000 mg intravenously* [employer] RX 1 MG-60 MG-300 MCG* Problem List As Of Date 02/06/2018 Noted Resolved ESRD (end stage renal disease) (HCC) [N18.6] INVALID FOR* More... Multiple gastric ulcers [K25.9] Anxiety [F41.9] Depression [F32.9] Encounter Status:Closed by TRACEY ARELLANO on 02/11/18 SURGERY VISIT REPORT Observed: 02/03/2018 Status: F Source: [place] 3:26 PM [facility] REPOSITORY [facility] [address] [place] [address]. [address] [place] [address] OFFICE VISIT Date of Service: 02/03/18 MR#: [id number] Acct: [id number] Name: COLLETTE KELLY Rep #: [id number] : 1970 Provider: Laura Jasso PA-C Age/Sex: 47/F Location: [facility] Status: Signed Intake Vital Signs01/28/18 Body Mass Index (BMI) 27.0 Intake Visit Reasons: PO Fistula Placment RC 01/27 Chief Complaint: discuss fistula creation Shoe Singer Required: No Is patient in pain?: No Allergies amoxicillin [From Augmentin] Allergy (Verified 02/03/18 13:17) Hives clavulanic acid [From Augmentin] Allergy (Verified 02/03/18 13:17) Hives furosemide [From Lasix] Allergy (Verified 02/03/18 13:17) Swelling sulfamethoxazole [From Bactrim] Allergy (Verified 02/03/18 13:17) Chest tightness trimethoprim [From Bactrim] Allergy (Verified 02/03/18 13:17) Chest tightness Medications Insulin Glargine,Hum.rec.anlog [Lantus] 15 unit SQ BID 02/08/15 [History Confirmed 02/03/18] Lisinopril [Zestril] 10 mg PO DAILY 11/29/15 [History Confirmed 02/03/18] Metoprolol Tartrate [Lopressor (beta nato)] 12.5 mg PO DAILY 12/06/15 [History Confirmed 02/03/18] Subjective Details: Patient is a 47 y/o female I am following for stage V chronic renal disease. Dr. Palafox performed stage I right upper extremity brachial to basilic arteriovenous fistula creation 01/27/18. Patient tolerated the procedure well. Patient notes discomfort at the incision site. She currently dialyzes vis tunneled dialysis chest catheters. Objective Details: Right upper extremity- incision c/d/i. No active bleeding noted. Small hematoma noted. Excellent pulse, bruit and thrill. Assessment AND Plan Problems 1. Chronic renal failure, stage 5 N18.5 Plan - Continue hand exercises - Follow-up in 2 weeks - Schedule stage II transposition at that time. Coding Level of Care Code Global Post Op Diagnoses Chronic renal failure, stage 5 N18.5 02/03/18 1526 <Electronically signed by Laura Jasso PA-C> Date Laura Jasso PA-C Cosigner Signature: Date (if applicable) CC: Alexander Gamble MD PROGRESS Observed: 01/29/2018 Status: COMPLETED Source: [place] 5:04 PM [facility] [place] REPOSITORY O ID: [id number] Author: Tracey (Rn) Adan Service: (none) Author Type: Registered Nurse Type: Progress Notes Filed: 01/30/2018 2:08 PM Note Text: PRIMARY CARE COORDINATION FOLLOW-UP NOTE Provider Action/FYI FYI Patient identified by name and date of . YES Spoke to Jefferson at [facility] in [place] Concerns: States spouse was asking them when they delivered the hospital bed if pt could have a mattress topper or air mattress. Informed PCC spoke to spouse today and he stated pt has no open wound and they are applying barrier cream so insurance isn't going to pay for those, Jefferson verbalized agreement. Manager Project plan for next outreach: Will follow up one week Signature Tracey Arellano RN January 29, 2018 PROGRESS Observed: 01/29/2018 Status: COMPLETED Source: [place] 12:47 PM [facility] REPOSITORY HNO ID: [id number] Author: Kannan Narayanan) Tye Service: (none) Author Type: Physician Type: Progress Notes Filed: 01/29/2018 12:47 PM Note Text: rx approved. Continue home oxygen and abx as recommended. PROGRESS Observed: 01/29/2018 Status: COMPLETED Source: [place] 11:50 AM [facility] [place] REPOSITORY HNO ID: [id number] Author: Tracey Escalante) Adan Service: (none) Author Type: Registered Nurse Type: Progress Notes Filed: 01/29/2018 12:01 PM Note Text: TRANSITION CARE MANAGEMENT (TCM) FOLLOW-UP NOTE Provider Action/FYI Pt having increased anxiety and Vistaril wasn't refilled. nurse recommends pt have refill because she's noting increased anxiety. REFILL ORDER PENDED Now has O2 at home for PRN use Cellulitis redness sl improved Patient identified by name and date of : YES Spoke to spouse Summary: Cellulitis: Redness slightly decreased but still pretty sore, taking ATB Still notes weakness LE edema increases and decreases throughout the week but spouse doesn't think they are as swollen as before Received O2 and wearing 2L PRN Pt is going to [place] today for a new implanted port in chest. Still notes reddened intact skin on buttocks, applying barrier cream Patient phones requesting refills as follows: Pending Prescriptions Disp Refills HYDROXYZINE PAMOATE 50 MG CAPSULE 30 capsule 1 Sig: Take 1 capsule by mouth four times daily as needed for Anxiety. RYAN: No Please review and advise. Manager Project plan for next outreach: Will follow up one week Signature Tracey Arellano RN January 29, 2018 CNPTOUTREACH Observed: 01/29/2018 Status: COMPLETED Source: [place] 12:00 AM [facility] REPOSITORY Patient Outreach (FAMPWS) COLLETTE KELLY ([id number]) 1970 F TRN Date Time Provider Department 01/29/18 TRACEY ARELLANO (ABIGAIL) FAMPWS During your visit today, we recorded the following information about you: Tracey Arellano RN 01/29/2018 12:01 PM Signed TRANSITION CARE MANAGEMENT (TCM) FOLLOW-UP NOTE Provider Action/FYI Pt having increased anxiety and Vistaril wasn't refilled. nurse recommends pt have refill because she's noting increased anxiety. REFILL ORDER PENDED Now has O2 at home for PRN use Cellulitis redness sl improved Patient identified by name and date of : YES Spoke to spouse Summary: Cellulitis: Redness slightly decreased but still pretty sore, taking ATB Still notes weakness LE edema increases and decreases throughout the week but spouse doesn't think they are as swollen as before Received O2 and wearing 2L PRN Pt is going to [facility] today for a new implanted port in chest. Still notes reddened intact skin on buttocks, applying barrier cream Patient phones requesting refills as follows: Pending Prescriptions Disp Refills HYDROXYZINE PAMOATE 50 MG CAPSULE 30 capsule 1 Sig: Take 1 capsule by mouth four times daily as needed for Anxiety. RYAN: No Please review and advise. Manager Project plan for next outreach: Will follow up one week Signature Tracey Arellano RN January 29, 2018 Kannan Gamble MD 01/29/2018 12:47 PM Signed rx approved. Continue home oxygen and abx as recommended. Tracey Arellano RN 01/30/2018 2:08 PM Signed PRIMARY CARE COORDINATION FOLLOW-UP NOTE Provider Action/FYI FYI Patient identified by name and date of . YES Spoke to Jefferson at [facility] in [place] Concerns: States spouse was asking them when they delivered the hospital bed if pt could have a mattress topper or air mattress. Informed PCC spoke to spouse today and he stated pt has no open wound and they are applying barrier cream so insurance isn't going to pay for those, Jefferson verbalized agreement. Manager Project plan for next outreach: Will follow up one week Signature Tracey Arellano RN January 29, 2018 Allergies As of Date: 01/29/2018 Noted Allergy Reaction AUGMENTIN (AMOXICILLIN-POT CLAVUL*07/22/2017 11 - Vomiting BACTRIM (SULFAMETHOXAZOLE-TRIMETH*07/22/2017 14 - Other: See Comments Comments: Chest pain BUSPAR (BUSPIRONE HCL) 10/22/2017 14 - Other: See Comments Comments: Night terrors LASIX (FUROSEMIDE) 07/22/2017 7 - Swelling Date Reviewed: 01/27/2018 Reviewed by: Sharlene Thornton (Haydee) HAYDEE Dempsey - Fully Assessed Reason for Visit: [facility] Follow Up [3610] Primary Visit Diagnosis:Anxiety [F41.9] Order(s):hydrOXYzine pamoate (VISTARIL) 50 mg capsuleTake 1 capsule by mouth four times daily as needed for Anxiety.Disp: 60 capsuleRfl: 1 Prescriptions as of 01/29/2018 Sig: ACETAMINOPHEN 325 MG CAPSULE Take by mouth every 4 hours a* AMLODIPINE 10 MG TABLET 1 tablet once daily. CALCIUM ACETATE 667 MG CAPSULE CEPHALEXIN 250 MG CAPSULE Take 1 capsule by mouth twice* CLONIDINE HCL 0.1 MG TABLET 1 tablet four times daily. CYCLOBENZAPRINE 10 MG TABLET Take 1 tablet by mouth three * DOCUSATE SODIUM 100 MG CAPSULE Take 100 mg by mouth once kailash* EPOETIN JOSE 20,000 UNIT/2 ML* Inject 2 mL subcutaneously ev* FLUCONAZOLE 200 MG TABLET Take 1 tablet by mouth once d* GENTAMICIN 0.1 % TOPICAL CREAM HEPARIN (PORCINE) 5,000 UNIT/* 1 mL by INJECTION(UNSPECIFIED* HUMALOG KWIKPEN (U-100) INSUL* Sliding Scale: <60 >400 Call* NORCO ORAL Take by mouth as needed. HYDROXYZINE PAMOATE 50 MG CAP* Take 1 capsule by mouth four * INSULIN ASPART U-100 100 UNI* Inject subcutaneously three t* INSULIN GLARGINE (U-100) 100 * Inject 5 Units subcutaneously* IPRATROPIUM-ALBUTEROL 0.5 MG-* Inhale 3 mL as instructed fou* MELATONIN 5 MG TABLET Take 1 tablet by mouth daily * NICOTINE (POLACRILEX) 2 MG GUM Chew 1 each as directed as ne* ONDANSETRON 4 MG DISINTEGRATI* Take 1 tablet by mouth every * PANTOPRAZOLE 40 MG TABLET,DEL* Take 1 tablet by mouth twice * QUETIAPINE 25 MG TABLET Take 1 tablet by mouth daily * SERTRALINE 100 MG TABLET Take 1 tablet by mouth once d* SEVELAMER HCL 800 MG TABLET Take 800 mg by mouth three ti* SODIUM CHLORIDE 0.65 % NASAL * 2 sprays each nostril every 2* VANCOMYCIN 1,000 MG INTRAVENO* Inject 1,000 mg intravenously* 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 Multiple gastric ulcers [K25.9] Anxiety [F41.9] Depression [F32.9] Prescriptions ordered this encounter Disp Refills Start End HYDROXYZINE PAMOATE 50 MG CAPSULE 60 c* 1 01/29/2018 Route: ORAL Sig: Take 1 capsule by mouth four times daily as needed for Anxiety. Medications Discontinued During This Encounter hydrOXYzine pamoate (VISTARIL) 50 mg* 01/29/2018 Class: Historical Med Route: ORAL Sig: Take 50 mg by mouth four times daily as needed for Anxiety. Disc: Reason for discontinue is not on file. Encounter Status:Closed by TRACEY ARELLANO on 01/30/18 DISCHARGE INSTRUCTION Observed: 01/28/2018 Status: F Source: [place] 9:00 AM [facility] REPOSITORY [facility] Medical Records Department [address] [place] [id number] Instructions for Home/Discharge Instructions 01/27/18 0918 MR#: [id number] Acct: [id number] Name: COLLETTE KELLY Rep #: [id number] : 1970 47 From: Guanakito Palafox MD PCP: Alexander Gamble MD Status: DEP [facility] Discharge Diet: Renal Diet Discharge Activity: May Not Drive - for 2-3 days or while taking narcotic pain medications., May Shower, May Take a Tub Bath - in 5 days. Lifting Restrictions: 5 pounds Keep extremity elevated above heart level: - - Keep arm elevated above the heart level for 3 days. Additional Activity Instructions:: Exercise hand vigorously with a stress ball. Call your doctor if your incision/area has: Continuous Slow Oozing, Sudden Increased Bleeding - apply pressure and call your doctor., Increased Pain/ Swelling, Increased Redness, Foul Smelling Discharge Call your doctor if you observe: Fever of 101 or Higher Suture Line Care: Avoid Pulling/Pushing, Avoid Pinching/Bending Cleanse incision/area with: Keep Dressing Clean AND Dry Additional Dressing/Incision Instructions:: Leave your dressing on for 2-3 days. Remove if there is any irritation. Leave the additional Steri-Strips on for 1 week Allergies/Adverse Reactions: Allergies amoxicillin [From Augmentin] Allergy (Verified 01/26/18 18:04) Hives clavulanic acid [From Augmentin] Allergy (Verified 01/26/18 18:04) Hives furosemide [From Lasix] Allergy (Verified 01/26/18 18:04) Swelling sulfamethoxazole [From Bactrim] Allergy (Verified 01/26/18 18:04) Chest tightness trimethoprim [From Bactrim] Allergy (Verified 01/26/18 18:04) Chest tightness Medications to take at Discharge Insulin Glargine,Hum.rec.anlog [Lantus] 15 unit SQ BID 02/08/15 Lisinopril [Zestril] 10 mg PO DAILY 11/29/15 Metoprolol Tartrate [Lopressor (beta nato)] 12.5 mg PO DAILY 12/06/15 Hydrocodone Bitart/Apap 5-325 [[place] 5MG-325MG] 1 tablet PO Q6H PRN PRN 2 Days #5 tablet 01/27/18 The following prescriptions were given: Hydrocodone Bitart/Apap 5-325 [[place] 5MG-325MG] 1 tablet PO Q6H PRN PRN 2 Days #5 tablet PRN Reason: Pain Primary Care Physician: Alexander Gamble MD [Primary Care Provider] - Test Results: Test results from this visit will be discussed in further detail at your follow-up appointment, if applicable. Please Follow Up With: Guanakito Palafox MD - [phone] When: Call to make an appointment for suture removal and follow up in 1 week. 01/28/18 0900 <Electronically signed by Guanakito Palafox MD> Date Guanakito Palafox MD CC: Alexander Gamble MD OPERATIVE REPORT Observed: 01/28/2018 Status: F Source: [place] 9:00 AM [facility] REPOSITORY [facility] Medical Records Department [address] [place] [place] [address] Operative Report 01/27/18918 MR#: [id number] Acct: [id number] Name: COLLETTE KELLY Rep #: [id number] : 1970 47 From: Guanakito Palafox MD PCP: Alexander Gamble MD Status: DEP [facility] Y Location: [facility] Problem List (1) Chronic renal failure, stage 5 Status: Acute Report of Operation Date of Procedure: 01/27/18 Pre-Operative Diagnosis: Stage V chronic renal insufficiency Post-Operative Diagnosis: Same Surgery/Procedure Performed:: Stage I right upper extremity brachial to basilic arteriovenous fistula creation Description of Surgical Findings:: Timeout and informed consent was obtained. 47-year-old female was taken the operating placed by the table. She underwent monitored anesthesia care and local anesthetic. 1% lidocaine mixed 50-50 with 0.5% Marcaine was used as a local anesthetic. A total of 15 cc was used. An oblique incision was made in the right antecubital space proximal to the crease. Ultrasound has been performed to identify the course of the basilic vein. The basilic vein was dissected circumferentially and then ink marked. Sharp and blunt dissection was used to identify the right brachial artery. Circumferential control was obtained. The patient received 7000 units of heparin. After adequate Strickling time the vein was ligated distally with a Hemoclip. Peripheral vascular clamps were placed on the brachial artery. An 11 blade was used to make an arteriotomy which was extended with Gardner scissors. The vein was spatulated length and end-to-side anastomosis created with a running 7-0 Prolene. Prior to completion of this good antegrade and retrograde flow. The anastomosis was completed and immediately there was good pulsatile flow within the basilic vein. Hemostasis was nicely intact. The wound was closed with a deep layer of interrupted 3-0 Vicryl and then a running septic or 4-0 Monocryl. Steri-Strips Telfa OpSite dressings applied. Sponge and instrument and needle counts were reported the surgeon be correct. Blood loss was minimal. She tolerated the procedure well was taken to the recovery area in satisfactory condition without apparent complication. Hand was viable. Specimens none. Drains none. Blood loss minimal. Guanakito Palafox M.D., F.A.C.S. Type of Anesthesia:: Local MAC Anesthesiologist: Sb Lomax 01/28/18 0900 <Electronically signed by Guanakito Palafox MD> Date Guanakito Palafox MD CC: Alexander Gamble MD; Guanakito Palafox MD Signed PROGRESS Observed: 01/27/2018 Status: COMPLETED Source: [place] 1:58 PM [facility] REPOSITORY HNO ID: [id number] Author: Tracey Escalante) Adan Service: (none) Author Type: Registered Nurse Type: Progress Notes Filed: 01/27/2018 2:15 PM Note Text: TRANSITION CARE MANAGEMENT (TCM) FOLLOW-UP NOTE Provider Action/FYI FYI Informed PATTIE Jackman of DME company for O2 Patient identified by name and date of : YES Spoke to spouse Summary: TC to spouse, informed [employer] in [place] is working on getting patient her hosp bed and W/C. Asking if they want to use the same company for oxygen, states yes. States he is at [facility] getting patient's ATB. Informed PCC will call pt on Friday regarding how her cellulitis is looking. Spouse left message, states they were getting oxygen from [facility]. Pt was in to see Augustina BLANKENSHIP today and she is going to order Oxygen PRN Manager Project plan for next outreach: Will follow up one week Signature Tracey Arellano RN January 27, 2018 PROGRESS Observed: 01/27/2018 Status: COMPLETED Source: [place] 11:14 AM [facility] REPOSITORY HNO ID: [id number] Author: Augustina Valle) Podlogar Service: (none) Author Type: Nurse Practitioner Type: Progress Notes Filed: 01/27/2018 2:18 PM Note Text: 01/27/2018 Patient presents with: Pain: lft arm pain , red , swollen and warm also per Guanakito Palafox May need home 0xygen SUBJECTIVE: This is a 47 year old that is here today for Above Complaints. Left arm has been red and swollen for about 1 month. Reports had US showed no DVT. Was at [facility] this morning for fistula placement in right arm and was told to come have left arm evaluated. She aslo reports she was told her pulse ox was low at 90% and that she should be evaluated for oxygen. Denies fever, chills, open areas, dyspnea, cough, chest pain, palpitations, and worsening leg edema. Positive for warmth, redness and tenderness to left lower arm when touched, SOB with exertion and when lying flat. In the spring patient had home oxygen after extended illness. Reports returned it a few month ago as she was not using. However they had one bottle left and patient has used this on/off when SOB which she reports helps. PAST MEDICAL HISTORY Diagnosis Date - Anxiety - Cellulitis - Depression - Diabetes mellitus ([facility]) - ESRD (end stage renal disease) on dialysis ([facility]) 03/2017 Dr. Prieto, [facility] - Multiple gastric ulcers - Scoliosis - Tobacco use ALLERGIES Augmentin [Amoxicillin-Pot Clavulanate]; Bactrim [Sulfamethoxazole-Trimethoprim]; Buspar [Buspirone Hcl]; Lasix [Furosemide] MEDICATIONS Current Outpatient Prescriptions: acetaminophen 325 mg cap Take by mouth every 4 hours as needed. amLODIPine (NORVASC) 10 mg tablet 1 tablet once daily. calcium acetate (PHOSLO) 667 mg capsule cloNIDine HCl (CATAPRES) 0.1 mg tablet 1 tablet four times daily. cyclobenzaprine (FLEXERIL) 10 mg tablet Take 1 tablet by mouth three times daily as needed for Muscle Spasm. docusate sodium (COLACE) 100 mg capsule Take 100 mg by mouth once daily. Epoetin Jose (EPOGEN) 20,000 unit/2 mL soln Inject 2 mL subcutaneously every Friday and . fluconazole (DIFLUCAN) 200 mg tablet Take 1 tablet by mouth once daily. gentamicin 0.1% 0.1 % cream heparin sodium,porcine (HEPARIN, PORCINE,) 5,000 unit/mL (1 mL) crtg 1 mL by INJECTION(UNSPECIFIED PARENTERAL ROUTES) route every 8 hours. During dialysis HUMALOG KWIKPEN INSULIN 100 unit/mL inpn Sliding Scale:<60 >400 Call MD0-150 0 [id number] 5 [id number] 7 [id number]- 300 10 [id number] 12 [id number] 15 Units hydrocodone/acetaminophen (NORCO ORAL) Take by mouth as needed. hydrOXYzine pamoate (VISTARIL) 50 mg capsule Take 50 mg by mouth four times daily as needed for Anxiety. insulin aspart U-100 (NOVOLOG FLEXPEN U-100 INSULIN) 100 unit/mL inpn Inject subcutaneously three times daily with meals. sliding scale insulin glargine (LANTUS U-100 INSULIN) 100 unit/mL injection Inject 5 Units subcutaneously daily at bedtime. ipratropium-albuterol (DUONEB) 0.5 mg-3 mg(2.5 mg base)/3 mL nebu Inhale 3 mL as instructed four times daily as needed (shortness of breath or wheezing). Unit dose pack melatonin 5 mg tablet Take 1 tablet by mouth daily at bedtime. nicotine polacrilex (NICORETTE) 2 mg gum Chew 1 each as directed as needed ondansetron orally disintegrating (ZOFRAN ODT) 4 mg disintegrating tablet Take 1 tablet by mouth every 6 hours as needed for Nausea/Vomiting. pantoprazole DR (PROTONIX) 40 mg tablet Take 1 tablet by mouth twice daily. QUEtiapine (SEROQUEL) 25 mg tablet Take 1 tablet by mouth daily at bedtime. sertraline (ZOLOFT) 100 mg tablet Take 1 tablet by mouth once daily. sevelamer (RENAGEL) 800 mg tablet Take 800 mg by mouth three times daily with meals. sodium chloride (SALINE MIST) 0.65 % nasal spray 2 sprays each nostril every 2 hours as needed dry nasal passages vancomycin 1,000 mg injection Inject 1,000 mg intravenously every Friday, Friday, and Friday. Infuse after dialysis [employer] RX tablet cephALEXin (KEFLEX) 250 mg capsule Take 1 capsule by mouth twice daily for 5 days. No current facility-administered medications for this visit. Medications and allergies reviewed by this provider. SOCIAL HISTORY Social History Marital status: Spouse name: Rich Years of education: Number of children: 3 Occupational History Occupation Employer Comment unemployed Social History Main Topics Smoking status: Current Every Day Smoker Packs/day: 0.00 Years: 20.00 Types: Cigarettes Smokeless tobacco: Never Used Alcohol use: No Other Topics Concern Service No Blood Transfusions Yes Caffeine Concern No Exercise No REVIEW OF SYSTEMS All other reviewed and negative other than HPI. OBJECTIVE: BP 130/70 (BP Site: Left Arm, BP Position: Sitting, BP Cuff Size: Regular Adult) Pulse 104 Temp 36.8 ?C (98.3 ?F) Resp 16 Wt 80.3 kg (177 lb) SpO2 97% BMI 26.91 kg/m? . Vital signs reviewed by this provider. APPEARANCE Well appearing, alert, in no acute distress, well-hydrated, well nourished. HEART RRR with normal S1 and S2, no murmurs, no gallops, no JVD appreciated LUNG clear to auscultation EXTREMITIES No deformities and Normal pulses bilaterally. 1+ BLE with vascular changes SKIN 1+edema to left inner forearm Warmth, light redness and TTP ASSESSMENT/PLAN: 1. Cellulitis of skin - ICD9: 682.9, ICD10: L03.90 (primary diagnosis) - Begin treatment with Cephalaxin (Keflex) - no red flag exam findings - red flag symptoms discussed, verbalizes understanding - No lymphangetic streaking, this was defined for patient to watch for and to seek medical care immediately if appears - further attention if this area continues to enlarge - follow-up in 3 days if no improvment 2. Low oxygen saturation - ICD9: 790.91, ICD10: R79.81 - walk test shows decrease oxygen to 85% In office - will order O2 for as needed when SOB - OXYGEN FOR HOME USE - to call in company and will fax order - follow-up as scheduled with Dr. Tye Vaughn, CASHIER MANAGER.CELLOPHANE WRAPPING EXAMINER Prescription instructions reviewed with patient as applicable. Patient advised if symptoms do not improve or if symptoms worsen sooner, to contact their primary care physician. Potential red flag symptoms discussed with the patient. Reviewed appropriate action plan to take if red flag symptoms occur. Patient agreeable to treatment plan. CNOV Observed: 01/27/2018 Status: COMPLETED Source: [place] 11:00 AM [facility] REPOSITORY Office Visit (FAMPWS) COLLETTE KELLY ([id number]) 1970 F TRN Date Time Provider Department 01/27/18 11:00 AM AUGUSTINA VAUGHN (CELLOPHANE WRAPPING EXAMINER) RENETTA During your visit today, we recorded the following information about you: Temperature Pulse Respiration Blood pressure 98.3 degrees 104/minute 16/minute 130/70 Weight 80.3 kg Augustina Vaughn, CASHIER MANAGER.SENDY 01/27/2018 2:18 PM Signed 01/27/2018 Patient presents with: Pain: lft arm pain , red , swollen and warm also per Guanakito Palafox May need home 0xygen SUBJECTIVE: This is a 47 year old that is here today for Above Complaints. Left arm has been red and swollen for about 1 month. Reports had US showed no DVT. Was at [facility] this morning for fistula placement in right arm and was told to come have left arm evaluated. She aslo reports she was told her pulse ox was low at 90% and that she should be evaluated for oxygen. Denies fever, chills, open areas, dyspnea, cough, chest pain, palpitations, and worsening leg edema. Positive for warmth, redness and tenderness to left lower arm when touched, SOB with exertion and when lying flat. In the spring patient had home oxygen after extended illness. Reports returned it a few month ago as she was not using. However they had one bottle left and patient has used this on/off when SOB which she reports helps. PAST MEDICAL HISTORY Diagnosis Date - Anxiety - Cellulitis - Depression - Diabetes mellitus (HCC) - ESRD (end stage renal disease) on dialysis ([facility]) 03/2017 [facility] - Multiple gastric ulcers - Scoliosis - Tobacco use ALLERGIES Augmentin [Amoxicillin-Pot Clavulanate]; Bactrim [Sulfamethoxazole-Trimethoprim]; Buspar [Buspirone Hcl]; Lasix [Furosemide] MEDICATIONS Current Outpatient Prescriptions: acetaminophen 325 mg cap Take by mouth every 4 hours as needed. amLODIPine (NORVASC) 10 mg tablet 1 tablet once daily. calcium acetate (PHOSLO) 667 mg capsule cloNIDine HCl (CATAPRES) 0.1 mg tablet 1 tablet four times daily. cyclobenzaprine (FLEXERIL) 10 mg tablet Take 1 tablet by mouth three times daily as needed for Muscle Spasm. docusate sodium (COLACE) 100 mg capsule Take 100 mg by mouth once daily. Epoetin Jose (EPOGEN) 20,000 unit/2 mL soln Inject 2 mL subcutaneously every Friday and . fluconazole (DIFLUCAN) 200 mg tablet Take 1 tablet by mouth once daily. gentamicin 0.1% 0.1 % cream heparin sodium,porcine (HEPARIN, PORCINE,) 5,000 unit/mL (1 mL) crtg 1 mL by INJECTION(UNSPECIFIED PARENTERAL ROUTES) route every 8 hours. During dialysis HUMALOG KWIKPEN INSULIN 100 unit/mL inpn Sliding Scale:<60 >400 Call MD0-150 0 [id number] 5 [id number] 7 [id number] 10 [id number] 12 [id number] 15 Units hydrocodone/acetaminophen (NORCO ORAL) Take by mouth as needed. hydrOXYzine pamoate (VISTARIL) 50 mg capsule Take 50 mg by mouth four times daily as needed for Anxiety. insulin aspart U-100 (NOVOLOG FLEXPEN U-100 INSULIN) 100 unit/mL inpn Inject subcutaneously three times daily with meals. sliding scale insulin glargine (LANTUS U-100 INSULIN) 100 unit/mL injection Inject 5 Units subcutaneously daily at bedtime. ipratropium-albuterol (DUONEB) 0.5 mg-3 mg(2.5 mg base)/3 mL nebu Inhale 3 mL as instructed four times daily as needed (shortness of breath or wheezing). Unit dose pack melatonin 5 mg tablet Take 1 tablet by mouth daily at bedtime. nicotine polacrilex (NICORETTE) 2 mg gum Chew 1 each as directed as needed ondansetron orally disintegrating (ZOFRAN ODT) 4 mg disintegrating tablet Take 1 tablet by mouth every 6 hours as needed for Nausea/Vomiting. pantoprazole DR (PROTONIX) 40 mg tablet Take 1 tablet by mouth twice daily. QUEtiapine (SEROQUEL) 25 mg tablet Take 1 tablet by mouth daily at bedtime. sertraline (ZOLOFT) 100 mg tablet Take 1 tablet by mouth once daily. sevelamer (RENAGEL) 800 mg tablet Take 800 mg by mouth three times daily with meals. sodium chloride (SALINE MIST) 0.65 % nasal spray 2 sprays each nostril every 2 hours as needed dry nasal passages vancomycin 1,000 mg injection Inject 1,000 mg intravenously every Friday, Friday, and Friday. Infuse after dialysis [employer] RX tablet cephALEXin (KEFLEX) 250 mg capsule Take 1 capsule by mouth twice daily for 5 days. No current facility-administered medications for this visit. Medications and allergies reviewed by this provider. SOCIAL HISTORY Social History Marital status: Spouse name: Mateusz Years of education: Number of children: 3 Occupational History Occupation Employer Comment unemployed Social History Main Topics Smoking status: Current Every Day Smoker Packs/day: 0.00 Years: 20.00 Types: Cigarettes Smokeless tobacco: Never Used Alcohol use: No Other Topics Concern Service No Blood Transfusions Yes Caffeine Concern No Exercise No REVIEW OF SYSTEMS All other reviewed and negative other than HPI. OBJECTIVE: BP 130/70 (BP Site: Left Arm, BP Position: Sitting, BP Cuff Size: Regular Adult) Pulse 104 Temp 36.8 ?C (98.3 ?F) Resp 16 Wt 80.3 kg (177 lb) SpO2 97% BMI 26.91 kg/m? . Vital signs reviewed by this provider. APPEARANCE Well appearing, alert, in no acute distress, well- hydrated, well nourished. HEART RRR with normal S1 and S2, no murmurs, no gallops, no JVD appreciated LUNG clear to auscultation EXTREMITIES No deformities and Normal pulses bilaterally. 1+ BLE with vascular changes SKIN 1+edema to left inner forearm Warmth, light redness and TTP ASSESSMENT/PLAN: 1. Cellulitis of skin - ICD9: 682.9, ICD10: L03.90 (primary diagnosis) - Begin treatment with Cephalaxin (Keflex) - no red flag exam findings - red flag symptoms discussed, verbalizes understanding - No lymphangetic streaking, this was defined for patient to watch for and to seek medical care immediately if appears - further attention if this area continues to enlarge - follow-up in 3 days if no improvment 2. Low oxygen saturation - ICD9: 790.91, ICD10: R79.81 - walk test shows decrease oxygen to 85% In office - will order O2 for as needed when SOB - OXYGEN FOR HOME USE - to call in company and will fax order - follow-up as scheduled with Dr. Tye Vaughn APRN.CNP Prescription instructions reviewed with patient as applicable. Patient advised if symptoms do not improve or if symptoms worsen sooner, to contact their primary care physician. Potential red flag symptoms discussed with the patient. Reviewed appropriate action plan to take if red flag symptoms occur. Patient agreeable to treatment plan. Augustina Vaughn APRN.CNP 01/27/2018 12:01 PM Addendum If you develop fever, chills, red streaking, Increased redness and swelling go to ER Call with company name to fax over oxygen order ( let me know Augustina Vaughn) Referring Provider: SELF [[id number]] Allergies As of Date: 01/27/2018 Noted Allergy Reaction AUGMENTIN (AMOXICILLIN-POT CLAVUL*07/22/2017 11 - Vomiting BACTRIM (SULFAMETHOXAZOLE-TRIMETH*07/22/2017 14 - Other: See Comments Comments: Chest pain BUSPAR (BUSPIRONE HCL) 10/22/2017 14 - Other: See Comments Comments: Night terrors LASIX (FUROSEMIDE) 07/22/2017 7 - Swelling Date Reviewed: 01/27/2018 Reviewed by: Sharlene Thornton (Haydee) HAYDEE Dempsey - Fully Assessed Reason for Visit: Pain [78] Cmt: lft arm pain , red , swollen and warm also per Guanakito Palafox May need home 0xygen Primary Visit Diagnosis:Cellulitis of skin [L03.90] Other Visit Diagnosis:Low oxygen saturation [R79.81] Order(s):cephALEXin (KEFLEX) 250 mg capsuleTake 1 capsule by mouth twice daily for 5 days.Disp: 10 capsuleRfl: 0 OXYGEN FOR HOME USE [[id number]] Order #: [id number] OXIMETER NON-INVASIVE [[id number]] Order #: [id number]: 1 Prescriptions as of 01/27/2018 Sig: ACETAMINOPHEN 325 MG CAPSULE Take by mouth every 4 hours a* AMLODIPINE 10 MG TABLET 1 tablet once daily. CALCIUM ACETATE 667 MG CAPSULE CLONIDINE HCL 0.1 MG TABLET 1 tablet four times daily. CYCLOBENZAPRINE 10 MG TABLET Take 1 tablet by mouth three * DOCUSATE SODIUM 100 MG CAPSULE Take 100 mg by mouth once kailash* EPOETIN JOSE 20,000 UNIT/2 ML* Inject 2 mL subcutaneously ev* FLUCONAZOLE 200 MG TABLET Take 1 tablet by mouth once d* GENTAMICIN 0.1 % TOPICAL CREAM HEPARIN (PORCINE) 5,000 UNIT/* 1 mL by INJECTION(UNSPECIFIED* HUMALOG KWIKPEN (U-100) INSUL* Sliding Scale: <60 >400 Call* NORCO ORAL Take by mouth as needed. HYDROXYZINE PAMOATE 50 MG CAP* Take 50 mg by mouth four time* INSULIN ASPART U-100 100 UNI* Inject subcutaneously three t* INSULIN GLARGINE (U-100) 100 * Inject 5 Units subcutaneously* IPRATROPIUM-ALBUTEROL 0.5 MG-* Inhale 3 mL as instructed fou* MELATONIN 5 MG TABLET Take 1 tablet by mouth daily * NICOTINE (POLACRILEX) 2 MG GUM Chew 1 each as directed as ne* ONDANSETRON 4 MG DISINTEGRATI* Take 1 tablet by mouth every * PANTOPRAZOLE 40 MG TABLET,DEL* Take 1 tablet by mouth twice * QUETIAPINE 25 MG TABLET Take 1 tablet by mouth daily * SERTRALINE 100 MG TABLET Take 1 tablet by mouth once d* SEVELAMER HCL 800 MG TABLET Take 800 mg by mouth three ti* SODIUM CHLORIDE 0.65 % NASAL * 2 sprays each nostril every 2* VANCOMYCIN 1,000 MG INTRAVENO* Inject 1,000 mg intravenously* CHAIRMAN AND CEO-ROSLYN RX 1 MG-60 MG-300 MCG* CEPHALEXIN 250 MG CAPSULE Take 1 capsule by mouth twice* Problem List As Of Date 01/27/2018 Noted Resolved ESRD (end stage renal disease) ([facility]) [N18.6] INVALID FOR* More... Multiple gastric ulcers [K25.9] Anxiety [F41.9] Depression [F32.9] Other instructions from your clinician: If you develop fever, chills, red streaking, Increased redness and swelling go to ER Call with company name to fax over oxygen order ( let me know Augustina Podlogduglas) Prescriptions ordered this encounter Disp Refills Start End CEPHALEXIN 250 MG CAPSULE 10 c* 0 01/27/2018 02/01/2018 Route: ORAL Sig: Take 1 capsule by mouth twice daily for 5 days. Medications Discontinued During This Encounter cefTAZidime 2 gram solr 01/07/2018 01/27/2018 Class: Med Update Route: INTRAVENOUS Sig: Inject 2 g intravenously every Friday, Friday, and Friday. Given after dialysis Disc: Course of therapy completed Follow-up and Disposition History Recorded Encounter Status:Closed by PODLOGAUGUSTINA ARDON CNP on 01/27/18 BEDSIDE GLUCOSE Collected: 01/27/2018 Status: F Source: [place] 6:31 AM [facility] REPOSITORY TYPE CODE TESTS RESULT OUT OF REFERENCE UNITS RANGE LAB L501.080 70-110 mg/dL High BEDSIDE GLU 144 Result Comment: MANAGEMENT OF PATIENT CARE PER NURSING PROTOCOL Performed By: #### L501.080 #### [facility] Point of Care Shaquille Skinner [place], [place] [id number] YAYA Observed: 01/27/2018 Status: COMPLETED Source: [place] 12:00 AM [facility] REPOSITORY Patient Outreach ([facility]) COLLETTE KELLY ([id number]) 1970 F TRN Date Time Provider Department 01/27/18 TRACEY ARELLANO (RN) [facility] During your visit today, we recorded the following information about you: Tracey Arellano RN 01/27/2018 2:15 PM Addendum TRANSITION CARE MANAGEMENT (TCM) FOLLOW-UP NOTE Provider Action/FYI FYI Informed PATTIE Jackman of [employer] company for O2 Patient identified by name and date of : YES Spoke to spouse Summary: TC to spouse, informed [employer] in [place] is working on getting patient her hosp bed and W/C. Asking if they want to use the same company for oxygen, states yes. States he is at [facility] getting patient's ATB. Informed PCC will call pt on Friday regarding how her cellulitis is looking. Spouse left message, states they were getting oxygen from [facility]. Pt was in to see Augustina BLANKENSHIP today and she is going to order Oxygen PRN Manager Project plan for next outreach: Will follow up one week Signature Tracey Arellano RN January 27, 2018 Allergies As of Date: 01/27/2018 Noted Allergy Reaction AUGMENTIN (AMOXICILLIN-POT CLAVUL*07/22/2017 11 - Vomiting BACTRIM (SULFAMETHOXAZOLE-TRIMETH*07/22/2017 14 - Other: See Comments Comments: Chest pain BUSPAR (BUSPIRONE HCL) 10/22/2017 14 - Other: See Comments Comments: Night terrors LASIX (FUROSEMIDE) 07/22/2017 7 - Swelling Date Reviewed: 01/27/2018 Reviewed by: Sharlene Thornton (Haydee) HAYDEE Dempsey - Fully Assessed Reason for Visit: [facility] Follow Up [3489] Cmt: TCM F/U Call # 2 D/C Deirdre 01/04 Reason For Visit History Recorded Prescriptions as of 01/27/2018 Sig: ACETAMINOPHEN 325 MG CAPSULE Take by mouth every 4 hours a* AMLODIPINE 10 MG TABLET 1 tablet once daily. CALCIUM ACETATE 667 MG CAPSULE CEPHALEXIN 250 MG CAPSULE Take 1 capsule by mouth twice* CLONIDINE HCL 0.1 MG TABLET 1 tablet four times daily. CYCLOBENZAPRINE 10 MG TABLET Take 1 tablet by mouth three * DOCUSATE SODIUM 100 MG CAPSULE Take 100 mg by mouth once kailash* EPOETIN JOSE 20,000 UNIT/2 ML* Inject 2 mL subcutaneously ev* FLUCONAZOLE 200 MG TABLET Take 1 tablet by mouth once d* GENTAMICIN 0.1 % TOPICAL CREAM HEPARIN (PORCINE) 5,000 UNIT/* 1 mL by INJECTION(UNSPECIFIED* HUMALOG KWIKPEN (U-100) INSUL* Sliding Scale: <60 >400 Call* NORCO ORAL Take by mouth as needed. HYDROXYZINE PAMOATE 50 MG CAP* Take 50 mg by mouth four time* INSULIN ASPART U-100 100 UNI* Inject subcutaneously three t* INSULIN GLARGINE (U-100) 100 * Inject 5 Units subcutaneously* IPRATROPIUM-ALBUTEROL 0.5 MG-* Inhale 3 mL as instructed fou* MELATONIN 5 MG TABLET Take 1 tablet by mouth daily * NICOTINE (POLACRILEX) 2 MG GUM Chew 1 each as directed as ne* ONDANSETRON 4 MG DISINTEGRATI* Take 1 tablet by mouth every * PANTOPRAZOLE 40 MG TABLET,DEL* Take 1 tablet by mouth twice * QUETIAPINE 25 MG TABLET Take 1 tablet by mouth daily * SERTRALINE 100 MG TABLET Take 1 tablet by mouth once d* SEVELAMER HCL 800 MG TABLET Take 800 mg by mouth three ti* SODIUM CHLORIDE 0.65 % NASAL * 2 sprays each nostril every 2* VANCOMYCIN 1,000 MG INTRAVENO* Inject 1,000 mg intravenously* [employer]MAN [employer] CEO[employer]ROSLYN RX 1 MG-60 MG-300 MCG* Problem List As Of Date 01/27/2018 Noted Resolved ESRD (end stage renal disease) ([facility]) [N18.6] INVALID FOR* More... Multiple gastric ulcers [K25.9] Anxiety [F41.9] Depression [F32.9] Encounter Status:Closed by TRACEY ARELLANO on 01/27/18 SURGERY VISIT REPORT Observed: 01/20/2018 Status: F Source: [place] 5:14 PM [facility] REPOSITORY [facility] [address] [place] [address]. [address] [place] [address] OFFICE VISIT Date of Service: 01/20/18 MR#: [id number] Acct: [id number] Name: COLLETTE KELLY Rep #: [id number] : 1970 Provider: Guanakito Palafox MD Age/Sex: 47/F Location: [facility] Status: Signed Intake Vital Signs01/20/18 Height 5 ft 7 in 01/20/18 Weight: 186 lb 12 oz 01/20/18 Body Mass Index (BMI) 29.2 01/20/18 Blood Pressure 130/80 H Intake Visit Reasons: AV Access Placement Consult Chief Complaint: discuss fistula creation Shoe Singer Required: No Is patient in pain?: No Allergies amoxicillin [From Augmentin] Allergy (Verified 01/20/18 14:30) Hives clavulanic acid [From Augmentin] Allergy (Verified 01/20/18 14:30) Hives Medications Citalopram [Celexa] 40 mg PO DAILY 02/08/15 [History Confirmed 02/08/15] Insulin Glargine,Hum.rec.anlog [Lantus] 15 unit SQ BID 02/08/15 [History Confirmed 02/08/15] Oxycodone HCl/Acetaminophen [Percocet 5/325] 1 - 2 tab PO Q4H PRN PRN 02/08/15 [History Confirmed 02/08/15] Ciprofloxacin [Cipro] 500 mg PO BID 11/29/15 [History Confirmed 11/29/15] Lisinopril [Zestril] 10 mg PO DAILY 11/29/15 [History Confirmed 11/29/15] Ondansetron [Zofran Odt] 4 mg PO Q12H 11/29/15 [History Confirmed 11/29/15] Metoprolol Tartrate [Lopressor (Beta Nato)] 12.5 mg PO DAILY 12/06/15 [History Confirmed 12/06/15] Is last menstrual period known: No Post menopausal: Yes Patient : No PFSH Medical History Left arm swelling (Acute) Chronic renal failure, stage 5 (Acute) Depression (Chronic) Hypertension (Chronic) H/O abscess of skin and subcutaneous tissue (Resolved) Dehiscence of external surgical wound (Acute) Tobacco use disorder (Chronic) Diabetes mellitus, type II, insulin dependent (Chronic) Surgical History Status post insertion of dialysis catheter (Acute) Social History Smoking Status: Current every day smoker HPI HPI HPI: COLLETTE KELLY, is a 47 F who presents to the office today for surgical consultation regarding arteriovenous hemodialysis fistula creation. The patient is referred kindly by Dr. Cai and a written copy of my surgical consult recommendations will return to him 47-year-old female. She was accompanied by her . They estimate that she has been on some type of renal replacement therapy for 8 months. She started with peritoneal dialysis with a peritoneal dialysis catheter placed at [facility]. Apparently she then developed a yeast infection. She thinks for about 4 weeks she has had a right internal jugular tunneled dialysis catheter that was placed at [facility]. The details regarding her hospitalization there are indeterminate other than her said that she was quite ill and extensively hospitalized for several weeks. Apparently peptic ulcer disease and pneumonia may have complicated that hospitalization She apparently had the peritoneal dialysis catheters removed. She is on hemodialysis now. She has had a history of peptic ulcer disease. Complicating features include type 2 diabetes mellitus and long-term tobacco use disorder as well as her prolonged recent hospitalization. She is right arm dominant. She has significant lower extremity swelling/fluid retention. In addition on today's visit she has relatively new onset of left forearm swelling. She denies previous history of deep venous thrombosis. She had had a previous vein mapping procedure performed at [facility] on May 09, 2017. But this preceded her recent extensive hospitalization. It is of note that there was no particular extremity save for potential fistula. ROS General General: Yes fatigue; no weight change, appetite, colon cancer, breast cancer or weakness HEENT HEENT: Yes eye surgery; no difficulty swallowing, eye injury, swollen glands or hoarseness Endo Endocrine: Yes diabetes mellitus; no thyroid disease, thyroid cancer, Hair loss, heat intolerance or cold intolerance Musc Musculoskeletal: Yes back problems; no arthritis, rheumatoid arthritis, gout or joint pain Cardio Cardiovascular: Yes high blood pressure; no murmur, pacemaker, heart disease, atrial fibrillation, heart attack, heart stent, palpitations, shortness of breat with exertion or chest pain Psych Psychiatric: Yes depression and anxiety; no hearing voices Resp Respiratory: Yes shortness of breath, No sleep apnea, No cough, No COPD, No asthma, No emphysema, No wheezing Gastro Gastrointestinal: No abdominal pain, No nausea or vomiting, No diarrhea, No constipation, No blood in stool, No acid reflux, No hemorrhoids, Yes ulcers, No gallbladder problem, No black,tarry stools Danial Hematologic: No blood thinners, No blood disorders, No bleeding, Yes anemia, No blood clots Neuro Neurologic: No weakness Exam Const General: cooperative, ill appearing Nutritional Appearance: other (Evidence of abdominal weight loss noted) Orientation: alert, oriented x3 Eyes General: appearance normal, both eyes and all related structures Chest Other: Right chest tunneled dialysis catheters: No current tenderness or erythema Resp Effort AND Inspection: normal respiratory effort Auscultation: clear to auscultation bilaterally Cardio Rate: regular rate Rhythm: regular rhythm Heart Sounds: no murmurs Other: Bilateral radials are 2+. Bilateral brachials 3+. Bilateral carotids 2+ no bruits. GI Palpation: soft, no hepatosplenomegaly Auscultation: normal bowel sounds Other: Left mid abdomen transverse healed incision with residual induration but no erythema or tenderness Skin Other: Intact skin the forearm and upper arms. Extrem Other: Significant 4+ bilateral lower extremity edema with very heavy fluid-filled legs Significant 3+ swelling of the left forearm with warmth and mild erythema over the volar aspect Psych Affect: normal affect Assessment AND Plan Problems 1. Chronic renal failure, stage 5 N18.5 2. Left arm swelling M79.89 Plan The patient has significant left forearm swelling with mild erythema and warmth. Certainly possibility of deep vein thrombosis or superficial thrombophlebitis is present. On my inspection it appears that her cephalic veins of the forearm and upper arm are very diminutive. I am recommending to the patient a bilateral upper extremity vein mapping to assess for possible site for AV fistula creation. She has had an extensive hospitalization since her previous vein mapping of April 2017. I am recommending specific investigation of the left upper extremity evaluating for possible deep vein thrombosis to help evaluate this significant forearm swelling. Although the patient is right arm dominant on my clinical inspection I suspect that she will be a candidate for a basilic vein fistula. With the patient's present I discussed the technique benefit risk complications alternatives to utilizing cephalic vein using the forearm or upper arm or utilizing basilic vein. I suspect her recent hospitalization has exhausted all superficial veins. I am proposing a right upper extremity stage I brachial to basilic arteriovenous fistula creation. After her office appointment the duplex imaging demonstrates very diminutive bilateral forearm and upper arm cephalic vein is not usable for fistula. Bilateral upper arm basilic veins are adequate. There is no evidence for deep vein thrombosis on the left. The patient however still has significant left forearm swelling which I would like to avoid. We will notify the patient and see if she would like to schedule and proceed. I very much appreciate the kind opportunity of assisting with her surgical care. She is aware that I would plan stage I right upper extremity brachiocephalic vein to assess for possible maturation and that is pertinent performed stage II transposition. CC: Dr. Isaías Cai and Dr. Kannan Palafox M.D., F.A.C.S. Orders Orders: Coding Level of Care Code Comprehensive,moderate Diagnoses Chronic renal failure, stage 5 N18.5 Left arm swelling M79.89 01/20/18 1714 <Electronically signed by Guanakito Palafox MD> Date Guanakito Palafox MD Cosigner Signature: Date (if applicable) CC: Alexander Gamble MD VENOUS DUPLEX UPPER Observed: 01/20/2018 Status: F Source: [place] EXTREMITY 5:01 PM [facility] REPOSITORY [facility] [address] [address] Venous Duplex US, Unilateral 01/20/18 1532 MR#: [id number] Acct: [id number] Name: COLLETTE KELLY Rep #: [id number] : 1970 47 From: Guanakito Palafox MD Attending Dr: Guanakito Palafox MD Status: REG CLI Ordering Dr: Guanakito Palafox MD Date: 01/20/18 Location: [facility] Sex: F C Admitted: Reason For Study: LUE swelling Left Proximal Left jugular vein is spontaneous, widely patent, phasic, with no intraluminal echogenicity noted. Left subclavian vein is spontaneous, widely patent, phasic, with no intraluminal echogenicity noted. Left Arm Left axillary vein is spontaneous, patent, phasic, competent, compressible and demonstrates augmentation. Left brachial vein is compressible. Left cephalic vein is compressible. Left basilic vein is compressible. Left Lower Arm Left radial vein is compressible. Left ulnar vein is compressible. Interpretation Summary No evidence for acute deep venous thrombosis[left] upper extremity with patent and compressible cephalic and basilic veins. Ordering Physician: Guanakito Palafox Referring Physician: Guanakito Palafox Performed By: Ana Pop RVT ? 01/20/18 1700 Date Guanakito Palafox MD CC: Alexander Gamble MD; Radha Willingham MD; Guanakito Palafox MD Date Dictated: 01/20/18 1532 Date Transcribed: 01/20/18 1700 Animal Nurse: Signed VENOUS DUPLEX UPPER Observed: 01/20/2018 Status: F Source: [place] EXTREMITY 4:58 PM [facility] REPOSITORY [facility] [address] [place] [address] Saphenous Vein Mapping, Bilat 01/20/18 1509 MR#: [id number] Acct: [id number] Name: COLLETTE KELLY Rep #: [id number] : 1970 47 From: Guanakito Palafox MD Attending Dr: Guanakito Palafox MD Status: REG CLI Ordering Dr: Guanakito Palafox MD Date: 01/20/18 Location: [facility] Sex: F C Admitted: Reason For Study: Pre op dialysis access graft Right Arm Left Arm Right Cephalic Vein at the wrist Left Cephalic Vein at the wrist measures .21 measures .12 x .15 cm. x .24 cm. Right Cephalic Vein in the forearm Left Cephalic Vein in the forearm measures .18 measures .18 x .19 cm. x .18 cm. Right Cephalic Vein below antecub Left Cephalic Vein below antecub measures .20 measures .14 x .17 cm. x .21 cm. Right Cephalic Vein above antecub Left Cephalic Vein above antecub measures .15 x .16 cm. measures .13x .15 cm. Right Cephalic Vein mid bicep measures .21 Left Cephalic Vein at mid bicep measures .13 x .19 cm. x .15 cm. Right Cephalic Vein at the shoulder Left Cephalic Vein at the shoulder measures .17 x .19 cm. measures .14 x .16 cm. Right Basilic Vein at the origin Basilic vein at origin measures .34 x .35 cm. measures .37 x .35 cm. Basilic vein at bicep measures .29 x .31 cm. Right Basilic Vein mid bicep measures .27 Basilic vein above antecub measures .33 x .38 x .27 cm. cm. Right Basilic Vein above antecub Brachial artery - .43 x .44 cm with a velocity measures .23 x .27 cm. of 137.0 cm/s Brachial artery - .34 x .33 cm with a Radial artery - .20 x .18 cm with velocity of velocity of 92.6 cm/s 81.5 cm/s. Radial artery - .19 x .19 cm with a velocity of 102.0 cm/s. Interpretation Summary Patent and compressible bilateral upper extremity cephalic and basilic veins with very small bilateral cephalic veins. Adequate bilateral upper arm basilic veins Adequate bilateral brachial arteries Ordering Physician: Guanakito Palafox Referring Physician: Guanakito Palafox Performed By: Ana Pop RVT ? 01/20/181657 Date Guanakito Palafox MD CC: Alexander Gamble MD; Radha Willingham MD; Guanakito Palafox MD Date Dictated: 01/20/18 1509 Date Transcribed: 01/20/181657 Animal Nurse: Signed CATE Observed: 01/16/2018 Status: COMPLETED Source: [place] 12:00 AM [facility]ITORY [facility] COLLETTE KELLY ([id number]) 1970 F TRN Date Time Provider Department 01/16/18 KAN[facility]N GAMBLE[facility] During your visit today, we recorded the following information about you: Vignesh Reyna HAYDEE 01/16/2018 10:23 AM Signed Calling to report that patient has had 2 falls this week. No injuries. States that patient isn't sure why she's falling. Last night she fell out of bed and on 01/14/18, she lost her balance and fell in her living room. No bruising, no new pain. She has not been sleeping well. She is taking melatonin but her back pain is keeping her up. She believes this is causing her sleep disruptions. Please review and advise. Kannan Gamble MD 01/16/2018 10:33 AM Addendum Patient is falling because she has significant LE weakness from recent hospitalizations. 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 PT is coming out to house twice weekly. Is she using walker when ambulating? Any pain after falls? Is she still taking Seroquel at bedtime? Tracey Arellano RN 01/16/2018 12:40 PM Signed TRANSITION CARE MANAGEMENT (TCM) FOLLOW-UP NOTE Provider Action/FYI Pt requesting wheelchair and hospital bed for home. ORDERS PENDED IF YOU APPROVE PCC will schedule appt with Dr. Infante when MD office open on Friday Patient identified by name and date of : YES Spoke to Kay clark Summary: TC to Dr. Infante's office, they are closed until Friday TC to [employer], states they show in network DME company is [employer] [facility] TC to patient, instructed pt is to ambulate only with walker and stand by assistance. She is not to stand or walk by herself. She doesn't have a wheelchair and home but used one in the hospital and feels it would be beneficial due to weakness. Patient also asking if she could have a hospital bed due to fall out of bed last night. Pt doesn't have a f/u appt with Dr. Infante. Pt would like assistance from PCC to schedule appt. Tracey Arellano RN January 16, 2018 12:25 PM TC to Kay clark, states patient is using walker with assistance. PT only came out once this week due to dialysis and multiple doctors appointments. Pt did not have any pain after falls. Pt hit head last night but no pain, bruising or swelling noted. Pt is exhausted from all the appts but isn't sleeping at night. Taking melatonin and Seroquel at bedtime. Manager Project plan for next outreach: Will follow up one week Signature Tracey Arellano RN January 16, 2018 Knanan Gamble MD 01/16/2018 1:18 PM Signed Reviewed. Rx printed. Please notify patient. Tracey Arellano RN 01/16/2018 2:40 PM Addendum TC to patient, left message re: order for W/C and hospital bed was faxed to [facility] and gave phone number Tracey Arellano RN Orders, face sheet, copy of insurance card and PCP notes from yesterday faxed to [facility] in [place] Tracey Arellano RN January 16, 2018 2:30 PM Allergies As of Date: 01/16/2018 Noted Allergy Reaction AUGMENTIN (AMOXICILLIN-POT CLAVUL*07/22/2017 11 - Vomiting BACTRIM (SULFAMETHOXAZOLE-TRIMETH*07/22/2017 14 - Other: See Comments Comments: Chest pain BUSPAR (BUSPIRONE HCL) 10/22/2017 14 - Other: See Comments Comments: Night terrors LASIX (FUROSEMIDE) 07/22/2017 7 - Swelling Date Reviewed: 01/15/2018 Reviewed by: Vanesa Gross Ma - Fully Assessed Reason for Visit: Patient Update [1234] Cmt: TCM F/U Call #2 Reason For Visit History Recorded Primary Visit Diagnosis:ESRD (end stage renal disease) on dialysis ([facility]) [N18.6, Z99.2] Other Visit Diagnoses:Sepsis, due to unspecified organism ([facility]) [A41.9] Orthopnea [R06.01] Encephalopathy [G93.40] Bacterial pneumonia [J15.9] Peritonitis ([facility]) [K65.9] Acute on chronic anemia [D64.9] Weakness of both lower extremities [R29.898] Fall, initial encounter [W19.XXXA] Order(s):STANDARD WHEELCHAIR [[id number]] Order #: [id number] HOSP BED W MATTR SEMI-ELECTR RAIL [[id number]] Order #: [id number] Prescriptions as of 01/16/2018 Sig: ACETAMINOPHEN 325 MG CAPSULE Take by mouth every 4 hours a* AMLODIPINE 10 MG TABLET 1 tablet once daily. CALCIUM ACETATE 667 MG CAPSULE CLONIDINE HCL 0.1 MG TABLET 1 tablet four times daily. CYCLOBENZAPRINE 10 MG TABLET Take 1 tablet by mouth three * DOCUSATE SODIUM 100 MG CAPSULE Take 100 mg by mouth once kailash* EPOETIN JOSE 20,000 UNIT/2 ML* Inject 2 mL subcutaneously ev* FLUCONAZOLE 200 MG TABLET Take 1 tablet by mouth once d* GENTAMICIN 0.1 % TOPICAL CREAM HEPARIN (PORCINE) 5,000 UNIT/* 1 mL by INJECTION(UNSPECIFIED* HUMALOG KWIKPEN (U-100) INSUL* Sliding Scale: <60 >400 Call* NORCO ORAL Take by mouth as needed. HYDROXYZINE PAMOATE 50 MG CAP* Take 50 mg by mouth four time* INSULIN ASPART U-100 100 UNI* Inject subcutaneously three t* INSULIN GLARGINE (U-100) 100 * Inject 5 Units subcutaneously* IPRATROPIUM-ALBUTEROL 0.5 MG-* Inhale 3 mL as instructed fou* MELATONIN 5 MG TABLET Take 1 tablet by mouth daily * NICOTINE (POLACRILEX) 2 MG GUM Chew 1 each as directed as ne* ONDANSETRON 4 MG DISINTEGRATI* Take 1 tablet by mouth every * PANTOPRAZOLE 40 MG TABLET,DEL* Take 1 tablet by mouth twice * QUETIAPINE 25 MG TABLET Take 1 tablet by mouth daily * SERTRALINE 100 MG TABLET Take 1 tablet by mouth once d* SEVELAMER HCL 800 MG TABLET Take 800 mg by mouth three ti* SODIUM CHLORIDE 0.65 % NASAL * 2 sprays each nostril every 2* VANCOMYCIN 1,000 MG INTRAVENO* Inject 1,000 mg intravenously* [employer] RX 1 MG-60 MG-300 MCG* X CEFTAZIDIME 2 GRAM INTRAVENOU* Inject 2 g intravenously ever* Problem List As Of Date 01/16/2018 Noted Resolved ESRD (end stage renal disease) (HCC) [N18.6] INVALID FOR* More... Multiple gastric ulcers [K25.9] Anxiety [F41.9] Depression [F32.9] Encounter Status:Closed by TRACEY ARELLANO on 01/16/18 XR CHEST 2V FRONTAL/LAT Observed: 01/15/2018 Status: F Source: [place] 12:08 PM [facility] REPOSITORY * * *Final Report* * * DATE OF EXAM: Jan 15 2018 12:08PM WOX [id number] - XR CHEST 2V FRONTAL/LAT / PROCEDURE REASON: multiple diagnoses * * * * Physician Interpretation * * * * EXAMINATION: CHEST RADIOGRAPH (2 VIEW FRONTAL and LATERAL) CLINICAL HISTORY: Hospital-acquired pneumonia Orthopnea MQ: XC2_5 Comparison: 12/29/2017 RESULT: Lines, tubes, and devices: Right central venous catheter is in place with the tip over the cavoatrial junction Lungs and pleura: Mild cardiac enlargement. Mild pulmonary vascular congestion. Foci of atelectasis at both lung bases. Small bilateral pleural fluid collections. Superimposed pneumonia cannot be excluded. Overall grossly stable. Scoliosis is present. IMPRESSION: Stable chest. Animal Nurse: PSCB Transcribe Date/Time: Jan 15 2018 8:05P Dictated by : RONALDO BROWER MD This examination was interpreted and the report reviewed and electronically signed by: RONALDO BROWER MD on Jan 15 2018 8:08PM EST [id number] PROGRESS Observed: 01/15/2018 Status: COMPLETED Source: [place] 11:53 AM [facility] REPOSITORY HNO ID: [id number] Author: Mary Ellen Cooper Service: (none) Author Type: (none) Type: Progress Notes Filed: 01/15/2018 12:06 PM Note Text: Radiology Service Progress Note PATIENT NAME: Collette Kelly DATE OF SERVICE: January 15, 2018 TIME: 11:53 AM PATIENT IDENTITY VERIFICATION COMPLETED USING TWO (2) METHODS: Patient confirmed name verbally and Date of . PATIENT GENDER DATA: Female. status: : No status: NO. PATIENT RELEVANT IMPLANT DATA REVIEWED: Not Applicable RADIOLOGY DEPARTMENT: General X-ray: Exam(s) Completed: Chest X-Ray PERIPHERAL IV DATA: Not applicable SIGNED BY: Mary Ellen Cooper January 15, 2018 11:53 AM CNOV Observed: 01/15/2018 Status: COMPLETED Source: [place] 10:40 AM [facility] REPOSITORY [facility] COLLETTE KELLY ([id number]) 1970 F TRN Date Time Provider Department 01/15/18 10:40 AM KANNAN GAMBLE) [facility] During your visit today, we recorded the following information about you: Temperature Pulse Respiration Blood pressure 97 degrees 104/minute 12/minute 146/90 Kannan Gamble MD 01/16/2018 12:01 PM Signed Chief Complaint No chief complaint on file. HPI Collette Kelly is a 47 year old female who presents here today for Hospital Discharge Follow up. Accompanied today by sister in law Mcneil. Patient was admitted to [facility] on 2 separate occasions. She was admitted from 12/12 to 12/22 for acute sepsis secondary to hospital acquired pneumonia and peritonitis, sepsis induced encephalopathy, acute fungal peritoneal dialysis catheter associated peritonitis. Treated with Vancomycin, Zosyn, azithromycin. Peritoneal fluid showed melina and was stared on fluconazole and required removal of peritoneal dialysis catheter. Right internal jugular hemodialysis catheter placed. Discharged to [facility] on 12/22 after stable with total of 4 weeks of Ceftazidime, diflucan, and vacomycin to be given after dialysis and home oxygen. Noted TSH elevated with normal T4 which needs followed up. Discharged form [facility] after about 5 days. States that she never received oxygen for home. Returned to [facility] from 01/02 to 01/04 for acute hypoxia 81% on room air at home. TCM as follows below in bold: TRANSITION CARE MANAGEMENT (TCM) INITIAL CONTACT ? ? Provider Action/FYI: ? Pt having procedure in [place] today for double lumen catheter in chest for dialysis and IV antibiotics. Nurse states pt has 4+ pitting edema No SOB, cough or chest pain No hallucinations or tremors. Spouse states pt is much better since dialysis and current medication regime. Pt has open wound on buttocks, HH coming tomorrow for wound care. ? ? Initial contact with patient post discharge, spoke to spouse. They are at [place] office for procedure, spouse will call PCC back to review medications later today. Patient identified by name and . ? TRANSITION CARE MANAGEMENT: Date of Outreach: 01/06/2018 Outreach Attempt 1: Contact Made Date of Discharge 01/04/2018 Some recent data might be hidden ? SUMMARY: -Pt discharged from [facility] on 01/04. -Follow up appointment on 01/15 with PCP. -Medication review done with discharge summary. -Admitted for: CKD Sepsis Neuropathy Anxiety and depression Renal Failure Hiatal Hernia Diabetes HTN ? CONCERNS: Pt having procedure in [place] today. Nurse states pt has 4+ pitting edema No SOB, cough or chest pain Pt has open wound on buttocks, HH coming for wound care. ? NEW MEDICATIONS: See Medication Updates ? MEDS HELD/DISCONTINUED: See Medication List ? BRIEF HOSPITAL COURSE: Presented to [facility] on 01/02 as a transfer from [facility] for hypoxia with pulse oximetry 81% on room air. Placed on a nonrebreather and ultimately high flow nasal cannula oxygen, which was able to be de-escalated to 6 L NC oxygen following hemodialysis. On 01/04 pt was back on room air and hypoxia had resolved. PT evaluated pt and cleared for home with home PT. Pt improved quicker than expected. On 01/04 pt was medically cleared for discharge home. Pt to maintain her M-W-F hemodialysis schedule in [place]. Pt to retain F/U appt in [place] on 01/06. F/U with PCP in 1 week F/U with Dr. Infante, ID in 2 weeks F/U Dr. Cai, nephrology as needed ? Tracey Arellano RN January 07, 2018 11:19 AM Since discharge, patient has underwent the double lumen catheter placement and had IJ removed. PT just came out yesterday and will be have home sessions twice per week as well as occupation therapy 2 times per week. Nurse also coming out to change dressing and apply ointment to decubitus ulcer, has only been out once due to frequent visits. Patient has not been changing dressing or applying any cream to the area. Not sure if this is healing or not. Has not scheduled follow up appointment with Dr. Infante for ID. Has been getting Ceftazidime, Vancomycin, and diflucan as prescribed. Denies abdominal pain chest pain, cough, fever/chills, nausea, vomiting. Admits to still having orthopnea without SOB during the day. Tolerating PO diet. Limited in her ADLs due to significant LE weakness, is in wheelchair today because she is too weak to walk. Brought in labs today from dialysis. Shows anemia with improved HGB to 8. Malnutrition. Potassium level normal. No other significant findings. Requesting order for mammogram and referral to [facility] for cervical cancer screening. Past medical history, appointments, medications, allergies reviewed. Previous Medical History PAST MEDICAL HISTORY Diagnosis Date - Anxiety - Cellulitis - Depression - Diabetes mellitus (HCC) - ESRD (end stage renal disease) on dialysis ([facility]) 03/2017 Dr. Prieto - Multiple gastric ulcers - Scoliosis - Tobacco use Previous Surgical History PAST SURGICAL HISTORY Procedure Laterality Date - DRAINAGE OF PILONIDAL CYST - PD CATHETER ANCHOR BELT - REMOVAL OF GALLBLADDER Family History FAMILY HISTORY Problem Relation Age of Onset - Diabetes Mother - Hypertension Mother - Diabetes Father - Hypertension Father Patient Allergies ALLERGIES Allergen Reactions - Augmentin [Amoxicil* Vomiting - Bactrim [Sulfametho* Other: See Comments Chest pain - Buspar [Buspirone H* Other: See Comments Night terrors - Lasix [Furosemide] Swelling Current Medications Current Outpatient Prescriptions on File Prior to Visit: QUEtiapine (SEROQUEL) 25 mg tablet Take 1 tablet by mouth daily at bedtime. ipratropium-albuterol (DUONEB) 0.5 mg-3 mg(2.5 mg base)/3 mL nebu Inhale 3 mL as instructed four times daily as needed (shortness of breath or wheezing). Unit dose pack cefTAZidime 2 gram solr Inject 2 g intravenously every Friday, Friday, and Friday. Given after dialysis Epoetin Jose (EPOGEN) 20,000 unit/2 mL soln Inject 2 mL subcutaneously every Friday and . heparin sodium,porcine (HEPARIN, PORCINE,) 5,000 unit/mL (1 mL) crtg 1 mL by INJECTION(UNSPECIFIED PARENTERAL ROUTES) route every 8 hours. During dialysis melatonin 5 mg tablet Take 1 tablet by mouth daily at bedtime. nicotine polacrilex (NICORETTE) 2 mg gum Chew 1 each as directed as needed sodium chloride (SALINE MIST) 0.65 % nasal spray 2 sprays each nostril every 2 hours as needed dry nasal passages vancomycin 1,000 mg injection Inject 1,000 mg intravenously every Friday, Friday, and Friday. Infuse after dialysis ondansetron orally disintegrating (ZOFRAN ODT) 4 mg disintegrating tablet Take 1 tablet by mouth every 6 hours as needed for Nausea/Vomiting. fluconazole (DIFLUCAN) 200 mg tablet Take 1 tablet by mouth once daily. cyclobenzaprine (FLEXERIL) 5 mg tablet Take 5 mg by mouth three times daily. hydrOXYzine pamoate (VISTARIL) 50 mg capsule Take 50 mg by mouth four times daily as needed for Anxiety. sertraline (ZOLOFT) 100 mg tablet Take 1 tablet by mouth once daily. insulin glargine (LANTUS U-100 INSULIN) 100 unit/mL injection Inject 5 Units subcutaneously daily at bedtime. pantoprazole DR (PROTONIX) 40 mg tablet Take 40 mg by mouth twice daily. acetaminophen 325 mg cap Take by mouth every 4 hours as needed. gentamicin 0.1% 0.1 % cream HUMALOG KWIKPEN INSULIN 100 unit/mL inpn Sliding Scale:<60 >400 Call [id number] 0 [id number] 5 [id number] 7 [id number] 10 [id number] 12 [id number] 15 Units sevelamer (RENAGEL) 800 mg tablet Take 800 mg by mouth three times daily with meals. cyclobenzaprine (FLEXERIL) 10 mg tablet Take 1 tablet by mouth three times daily as needed for Muscle Spasm. predniSONE (DELTASONE) 20 mg tablet Take 1 tablet by mouth once daily. (Patient not taking: Reported on 12/10/2017 ) cyclobenzaprine HCl (CYCLOBENZAPRINE ORAL) Take 5 mg by mouth three times daily as needed. cloNIDine HCl (CATAPRES) 0.1 mg tablet 1 tablet four times daily. (Patient not taking: Reported on 12/10/2017 ) amLODIPine (NORVASC) 10 mg tablet 1 tablet once daily. insulin aspart U-100 (NOVOLOG FLEXPEN U-100 INSULIN) 100 unit/mL inpn Inject subcutaneously three times daily with meals. sliding scale docusate sodium (COLACE) 100 mg capsule Take 100 mg by mouth once daily. calcium acetate (PHOSLO) 667 mg capsule [employer] RX tablet No current facility-administered medications on file prior to visit. Social History Social History Marital status: Spouse name: Rich Years of education: Number of children: 3 Occupational History Occupation Employer Comment unemployed Social History Main Topics Smoking status: Current Every Day Smoker Packs/day: 0.00 Years: 20.00 Types: Cigarettes Smokeless tobacco: Never Used Alcohol use: No Other Topics Concern Service No Blood Transfusions Yes Caffeine Concern No Exercise No Review of Symptoms REVIEW OF SYSTEMS GENERAL: No weight loss, malaise or fevers RESPIRATORY: See HPI CARDIOVASCULAR: See HPI GI: No nausea, vomiting, or diarrhea SKIN: Negative for lesions, rash, and itching EXAM: BP 146/90 Pulse 104 Temp 36.1 ?C (97 ?F) (Tympanic) Resp 12 SpO2 98% General Appearance: Well appearing, alert, in no acute distress, well-hydrated, well nourished.. Skin: healing decubitus ulcer. Stage I ulcer today with mild surrounding erythema. No drainage/discharge. Lungs: decreased lung sounds in bases bilaterally without rales, rhonchi, or wheezing. Heart: RRR without murmur, gallop, or rubs. No ectopy. Abdomen: Normal abdominal exam, Abdomen soft, non-tender. Bowel sounds normal. No masses, organomegaly. Extremities: Edema: 1-2+ edema in LE bilaterally to knees. Musculoskeletal: significant LE weakness. Patient unable to stand under her own power and was fatigued after standing for <1 minute with assistance. Health Maintenance List HBA1C due on 11/14/1976 URINE ALBUMIN:CREATININE RATIO due on 11/14/1981 DIABETIC FOOT EXAM due on 11/14/1981 ONE PNEUMOVAX PRIOR TO AGE 65 due on 1987 LDL CHOLESTEROL due on 11/14/1989 BP CONTROLLED (<130/80) due on 11/14/1989 PAP EVERY 5 YEARS due on 11/14/2001 HPV EVERY 5 YEARS due on 11/14/2001 MAMMOGRAM due on 2011 DTAP,TDAP,TD(1 - Tdap) due on 11/07/2017 DILATED RETINAL EXAM due on 10/27/2018 ANNUAL PCP TEAM CHRONIC DISEASE VISIT due on 12/10/2018 SERUM CREATININE due on 12/10/2018 INFLUENZA Completed ASSESSMENT/PLAN: 1. Acute onset sepsis (HCC) - ICD9: 038.9, 995.91, ICD10: A41.9 (primary diagnosis) Symptoms have resolved. Continue abx as prescribed while inpatient. Needs to schedule f/u with ID as recommended. 2. Hospital-acquired pneumonia - ICD9: 486, ICD10: J18.9 See #1 - CONSULT TO INFECTIOUS DISEASES - XR CHEST 2V FRONTAL/LAT 3. Encephalopathy acute - ICD9: 348.30, ICD10: G93.40 Resolved with resolution of pneumonia. 4. Peritonitis (HCC) - ICD9: 567.9, ICD10: K65.9 Pain improved with diflucan. Continue as prescribed for 4 weeks. Follow up with ID. - CONSULT TO INFECTIOUS DISEASES 5. Orthopnea - ICD9: 786.02, ICD10: R06.01 Repeat CXR, continue dialysis MWF. Will need to continue drawing fluid off of patient to decrease weight, swelling, and help with BP. Recommendations per Dr. Prieto. - XR CHEST 2V FRONTAL/LAT 6. Hypervolemia, unspecified hypervolemia type - ICD9: 276.69, ICD10: E87.70 See #5. 7. ESRD (end stage renal disease) ([facility]) - ICD9: 585.6, ICD10: N18.6 See #5 8. Sacral decubitus ulcer, stage III ([facility]) - ICD9: 707.03, 707.23, ICD10: L89.153 Improving. Advised triple abx ointment and to change positions while lying or sitting ever 30-60 minutes to prevent recurrent ulcer. 9. Acute on chronic anemia - ICD9: 285.9, ICD10: D64.9 Recommendations per nephrology. 10. Elevated TSH - ICD9: 794.5, ICD10: R79.89 Will repeat TSH as requested on initial discharge. - TSH BLD - T4 FREE/FREE THYROX - T3 BLD - THYROID PEROXIDASE ANTIBODY BLOOD 11. Screening mammogram, encounter for - ICD9: V76.12, ICD10: Z12.31 - Set up for mammogram, yearly mammogram recommended - [facility] SCREENING 12. Screening for cervical cancer - ICD9: V76.2, ICD10: Z12.4 - CONSULT TO GYNECOLOGY Kannan Gamble MD Referring Provider: SELF [200] Allergies As of Date: 01/15/2018 Noted Allergy Reaction AUGMENTIN (AMOXICILLIN-POT CLAVUL*07/22/2017 11 - Vomiting BACTRIM (SULFAMETHOXAZOLE-TRIMETH*07/22/2017 14 - Other: See Comments Comments: Chest pain BUSPAR (BUSPIRONE HCL) 10/22/2017 14 - Other: See Comments Comments: Night terrors LASIX (FUROSEMIDE) 07/22/2017 7 - Swelling Date Reviewed: 01/15/2018 Reviewed by: Vanesa Gross Ma - Fully Assessed Reason for Visit: Hospital Follow Up [177] Cmt: tcm Primary Visit Diagnosis:Acute onset sepsis (HCC) [A41.9] Other Visit Diagnoses:Hospital-acquired pneumonia [J18.9] Encephalopathy acute [G93.40] Peritonitis (HCC) [K65.9] Orthopnea [R06.01] Hypervolemia, unspecified hypervolemia type [E87.70] ESRD (end stage renal disease) (HCC) [N18.6] Sacral decubitus ulcer, stage III (HCC) [L89.153] Acute on chronic anemia [D64.9] Elevated TSH [R79.89] Screening mammogram, encounter for [Z12.31] Screening for cervical cancer [Z12.4] Order(s):TSH BLD [SQTSH] Order #: [id number] FUTURE T4 FREE/FREE THYROX [SQFT4] Order #: [id number] FUTURE T3 BLD [SQT3] Order #: [id number] FUTURE THYROID PEROXIDASE ANTIBODY BLOOD [SQMICRO] Order #: [id number] FUTURE CONSULT TO INFECTIOUS DISEASES [9016] Order #: [id number]: 1 XR CHEST 2V FRONTAL/LAT [1616145] Order #: [id number] FUTURE KASH SCREENING [9325890] Order #: [id number] FUTURE CONSULT TO GYNECOLOGY [9053] Order #: [id number]: [address] (PROTONIX) 40 mg tabletTake 1 tablet by mouth twice daily.Disp: 60 tabletRfl: 5 Prescriptions as of 01/15/2018 Sig: NORCO ORAL Take by mouth as needed. PANTOPRAZOLE 40 MG TABLET,DEL* Take 1 tablet by mouth twice * QUETIAPINE 25 MG TABLET Take 1 tablet by mouth daily * IPRATROPIUM-ALBUTEROL 0.5 MG-* Inhale 3 mL as instructed fou* CEFTAZIDIME 2 GRAM INTRAVENOU* Inject 2 g intravenously ever* EPOETIN JOSE 20,000 UNIT/2 ML* Inject 2 mL subcutaneously ev* HEPARIN (PORCINE) 5,000 UNIT/* 1 mL by INJECTION(UNSPECIFIED* MELATONIN 5 MG TABLET Take 1 tablet by mouth daily * SODIUM CHLORIDE 0.65 % NASAL * 2 sprays each nostril every 2* VANCOMYCIN 1,000 MG INTRAVENO* Inject 1,000 mg intravenously* ONDANSETRON 4 MG DISINTEGRATI* Take 1 tablet by mouth every * FLUCONAZOLE 200 MG TABLET Take 1 tablet by mouth once d* SERTRALINE 100 MG TABLET Take 1 tablet by mouth once d* INSULIN GLARGINE (U-100) 100 * Inject 5 Units subcutaneously* ACETAMINOPHEN 325 MG CAPSULE Take by mouth every 4 hours a* GENTAMICIN 0.1 % TOPICAL CREAM HUMALOG KWIKPEN (U-100) INSUL* Sliding Scale: <60 >400 Call* SEVELAMER HCL 800 MG TABLET Take 800 mg by mouth three ti* CYCLOBENZAPRINE 10 MG TABLET Take 1 tablet by mouth three * AMLODIPINE 10 MG TABLET 1 tablet once daily. INSULIN ASPART U-100 100 UNI* Inject subcutaneously three t* DOCUSATE SODIUM 100 MG CAPSULE Take 100 mg by mouth once kailash* [employer] RX 1 MG-60 MG-300 MCG* NICOTINE (POLACRILEX) 2 MG GUM Chew 1 each as directed as ne* Patient not taking: Reported on 01/15/2018 HYDROXYZINE PAMOATE 50 MG CAP* Take 50 mg by mouth four time* CLONIDINE HCL 0.1 MG TABLET 1 tablet four times daily. Patient not taking: Reported on 12/10/2017 CALCIUM ACETATE 667 MG CAPSULE Problem List As Of Date 01/15/2018 Noted Resolved ESRD (end stage renal disease) ([facility]) [N18.6] INVALID FOR* More... Multiple gastric ulcers [K25.9] Anxiety [F41.9] Depression [F32.9] Prescriptions ordered this encounter Disp Refills Start End PANTOPRAZOLE 40 MG TABLET,DELAYED RE* 60 t* 5 01/15/2018 Route: ORAL Sig: Take 1 tablet by mouth twice daily. Medications Discontinued During This Encounter predniSONE (DELTASONE) 20 mg tablet 5 ta* 0 11/06/2017 01/15/2018 Route: ORAL Sig: Take 1 tablet by mouth once daily. Patient not taking: Reported on 12/10/2017 Disc: Reason for discontinue is not on file. pantoprazole DR (PROTONIX) 40 mg tab* 01/15/2018 Class: Historical Med Route: ORAL Sig: Take 40 mg by mouth twice daily. Disc: Reason for discontinue is not on file. cyclobenzaprine (FLEXERIL) 5 mg tabl* 10/28/2017 01/15/2018 Class: Historical Med Route: ORAL Sig: Take 5 mg by mouth three times daily. Disc: Reason for discontinue is not on file. cyclobenzaprine HCl (CYCLOBENZAPRINE* 01/15/2018 Class: Historical Med Route: ORAL Sig: Take 5 mg by mouth three times daily as needed. Disc: Reason for discontinue is not on file. sevelamer carbonate (RENVELA) 800 mg* 12/09/2017 01/15/2018 Class: Historical Med Sig: Disc: Reason for discontinue is not on file. Disposition: Return in about 4 weeks (around 02/12/2018). Follow-up and Disposition History Recorded Encounter Status:Closed by KANNAN GAMBLE MD on 01/16/18 PROGRESS Observed: 01/15/2018 Status: COMPLETED Source: [place] 10:26 AM [facility] REPOSITORY O ID: [id number] Author: Kannan Stapleton () Tye Service: (none) Author Type: Physician Type: Progress Notes Filed: 01/16/2018 12:01 PM Note Text: Chief Complaint No chief complaint on file. HPI Collette Kelly is a 47 year old female who presents here today for Hospital Discharge Follow up. Accompanied today by sister in law Mcneil. Patient was admitted to [facility] on 2 separate occasions. She was admitted from 12/12 to 12/22 for acute sepsis secondary to hospital acquired pneumonia and peritonitis, sepsis induced encephalopathy, acute fungal peritoneal dialysis catheter associated peritonitis. Treated with Vancomycin, Zosyn, azithromycin. Peritoneal fluid showed melina and was stared on fluconazole and required removal of peritoneal dialysis catheter. Right internal jugular hemodialysis catheter placed. Discharged to [facility] on 12/22 after stable with total of 4 weeks of Ceftazidime, diflucan, and vacomycin to be given after dialysis and home oxygen. Noted TSH elevated with normal T4 which needs followed up. Discharged form [facility] after about 5 days. States that she never received oxygen for home. Returned to [facility] from 01/02 to 01/04 for acute hypoxia 81% on room air at home. TCM as follows below in bold: TRANSITION CARE MANAGEMENT (TCM) INITIAL CONTACT ? ? Provider Action/FYI: ? Pt having procedure in [place] today for double lumen catheter in chest for dialysis and IV antibiotics. Nurse states pt has 4+ pitting edema No SOB, cough or chest pain No hallucinations or tremors. Spouse states pt is much better since dialysis and current medication regime. Pt has open wound on buttocks, HH coming tomorrow for wound care. ? ? Initial contact with patient post discharge, spoke to spouse. They are at [place] office for procedure, spouse will call PCC back to review medications later today. Patient identified by name and . ? TRANSITION CARE MANAGEMENT: Date of Outreach: 01/06/2018 Outreach Attempt 1: Contact Made Date of Discharge 01/04/2018 Some recent data might be hidden ? SUMMARY: -Pt discharged from [facility] on 01/04. -Follow up appointment on 01/15 with PCP. -Medication review done with discharge summary. -Admitted for: CKD Sepsis Neuropathy Anxiety and depression Renal Failure Hiatal Hernia Diabetes HTN ? CONCERNS: Pt having procedure in [place] today. Nurse states pt has 4+ pitting edema No SOB, cough or chest pain Pt has open wound on buttocks, HH coming for wound care. ? NEW MEDICATIONS: See Medication Updates ? MEDS HELD/DISCONTINUED: See Medication List ? BRIEF HOSPITAL COURSE: Presented to [facility] on 01/02 as a transfer from [facility] for hypoxia with pulse oximetry 81% on room air. Placed on a nonrebreather and ultimately high flow nasal cannula oxygen, which was able to be de-escalated to 6 L NC oxygen following hemodialysis. On 01/04 pt was back on room air and hypoxia had resolved. PT evaluated pt and cleared for home with home PT. Pt improved quicker than expected. On 01/04 pt was medically cleared for discharge home. Pt to maintain her M-W-F hemodialysis schedule in [place]. Pt to retain F/U appt in [place] on 01/06. F/U with PCP in 1 week F/U with Dr. Infante, ID in 2 weeks F/U Dr. Cai, nephrology as needed ? Tracey Arellano, RN January 07, 2018 11:19 AM Since discharge, patient has underwent the double lumen catheter placement and had IJ removed. PT just came out yesterday and will be have home sessions twice per week as well as occupation therapy 2 times per week. Nurse also coming out to change dressing and apply ointment to decubitus ulcer, has only been out once due to frequent visits. Patient has not been changing dressing or applying any cream to the area. Not sure if this is healing or not. Has not scheduled follow up appointment with Dr. Infatne for ID. Has been getting Ceftazidime, Vancomycin, and diflucan as prescribed. Denies abdominal pain chest pain, cough, fever/chills, nausea, vomiting. Admits to still having orthopnea without SOB during the day. Tolerating PO diet. Limited in her ADLs due to significant LE weakness, is in wheelchair today because she is too weak to walk. Brought in labs today from dialysis. Shows anemia with improved HGB to 8. Malnutrition. Potassium level normal. No other significant findings. Requesting order for mammogram and referral to [facility] for cervical cancer screening. Past medical history, appointments, medications, allergies reviewed. Previous Medical History PAST MEDICAL HISTORY Diagnosis Date - Anxiety - Cellulitis - Depression - Diabetes mellitus (HCC) - ESRD (end stage renal disease) on dialysis ([facility]) 03/2017 Dr. Prieto - Multiple gastric ulcers - Scoliosis - Tobacco use Previous Surgical History PAST SURGICAL HISTORY Procedure Laterality Date - DRAINAGE OF PILONIDAL CYST - PD CATHETER ANCHOR BELT - REMOVAL OF GALLBLADDER Family History FAMILY HISTORY Problem Relation Age of Onset - Diabetes Mother - Hypertension Mother - Diabetes Father - Hypertension Father Patient Allergies ALLERGIES Allergen Reactions - Augmentin [Amoxicil* Vomiting - Bactrim [Sulfametho* Other: See Comments Chest pain - Buspar [Buspirone H* Other: See Comments Night terrors - Lasix [Furosemide] Swelling Current Medications Current Outpatient Prescriptions on File Prior to Visit: QUEtiapine (SEROQUEL) 25 mg tablet Take 1 tablet by mouth daily at bedtime. ipratropium-albuterol (DUONEB) 0.5 mg-3 mg(2.5 mg base)/3 mL nebu Inhale 3 mL as instructed four times daily as needed (shortness of breath or wheezing). Unit dose pack cefTAZidime 2 gram solr Inject 2 g intravenously every Friday, Friday, and Friday. Given after dialysis Epoetin Jose (EPOGEN) 20,000 unit/2 mL soln Inject 2 mL subcutaneously every Friday and . heparin sodium,porcine (HEPARIN, PORCINE,) 5,000 unit/mL (1 mL) crtg 1 mL by INJECTION(UNSPECIFIED PARENTERAL ROUTES) route every 8 hours. During dialysis melatonin 5 mg tablet Take 1 tablet by mouth daily at bedtime. nicotine polacrilex (NICORETTE) 2 mg gum Chew 1 each as directed as needed sodium chloride (SALINE MIST) 0.65 % nasal spray 2 sprays each nostril every 2 hours as needed dry nasal passages vancomycin 1,000 mg injection Inject 1,000 mg intravenously every Friday, Friday, and Friday. Infuse after dialysis ondansetron orally disintegrating (ZOFRAN ODT) 4 mg disintegrating tablet Take 1 tablet by mouth every 6 hours as needed for Nausea/Vomiting. fluconazole (DIFLUCAN) 200 mg tablet Take 1 tablet by mouth once daily. cyclobenzaprine (FLEXERIL) 5 mg tablet Take 5 mg by mouth three times daily. hydrOXYzine pamoate (VISTARIL) 50 mg capsule Take 50 mg by mouth four times daily as needed for Anxiety. sertraline (ZOLOFT) 100 mg tablet Take 1 tablet by mouth once daily. insulin glargine (LANTUS U-100 INSULIN) 100 unit/mL injection Inject 5 Units subcutaneously daily at bedtime. pantoprazole DR (PROTONIX) 40 mg tablet Take 40 mg by mouth twice daily. acetaminophen 325 mg cap Take by mouth every 4 hours as needed. gentamicin 0.1% 0.1 % cream HUMALOG KWIKPEN INSULIN 100 unit/mL inpn Sliding Scale:<60 >400 Call MD0-150 0 [id number] 5 [id number] 7 [id number] 300 10 [id number] 12 [id number] 15 Units sevelamer (RENAGEL) 800 mg tablet Take 800 mg by mouth three times daily with meals. cyclobenzaprine (FLEXERIL) 10 mg tablet Take 1 tablet by mouth three times daily as needed for Muscle Spasm. predniSONE (DELTASONE) 20 mg tablet Take 1 tablet by mouth once daily. (Patient not taking: Reported on 12/10/2017 ) cyclobenzaprine HCl (CYCLOBENZAPRINE ORAL) Take 5 mg by mouth three times daily as needed. cloNIDine HCl (CATAPRES) 0.1 mg tablet 1 tablet four times daily. (Patient not taking: Reported on 12/10/2017 ) amLODIPine (NORVASC) 10 mg tablet 1 tablet once daily. insulin aspart U-100 (NOVOLOG FLEXPEN U-100 INSULIN) 100 unit/mL inpn Inject subcutaneously three times daily with meals. sliding scale docusate sodium (COLACE) 100 mg capsule Take 100 mg by mouth once daily. calcium acetate (PHOSLO) 667 mg capsule [employer] RX tablet No current facility-administered medications on file prior to visit. Social History Social History Marital status: Spouse name: Mateusz Years of education: Number of children: 3 Occupational History Occupation Employer Comment unemployed Social History Main Topics Smoking status: Current Every Day Smoker Packs/day: 0.00 Years: 20.00 Types: Cigarettes Smokeless tobacco: Never Used Alcohol use: No Other Topics Concern Service No Blood Transfusions Yes Caffeine Concern No Exercise No Review of Symptoms REVIEW OF SYSTEMS GENERAL: No weight loss, malaise or fevers RESPIRATORY: See HPI CARDIOVASCULAR: See HPI GI: No nausea, vomiting, or diarrhea SKIN: Negative for lesions, rash, and itching EXAM: BP 146/90 Pulse 104 Temp 36.1 ?C (97 ?F) (Tympanic) Resp 12 SpO2 98% General Appearance: Well appearing, alert, in no acute distress, well-hydrated, well nourished.. Skin: healing decubitus ulcer. Stage I ulcer today with mild surrounding erythema. No drainage/discharge. Lungs: decreased lung sounds in bases bilaterally without rales, rhonchi, or wheezing. Heart: RRR without murmur, gallop, or rubs. No ectopy. Abdomen: Normal abdominal exam, Abdomen soft, non-tender. Bowel sounds normal. No masses, organomegaly. Extremities: Edema: 1-2+ edema in LE bilaterally to knees. Musculoskeletal: significant LE weakness. Patient unable to stand under her own power and was fatigued after standing for <1 minute with assistance. Health Maintenance List HBA1C due on 11/14/1976 URINE ALBUMIN:CREATININE RATIO due on 11/14/1981 DIABETIC FOOT EXAM due on 11/14/1981 ONE PNEUMOVAX PRIOR TO AGE 66 due on 1987 LDL CHOLESTEROL due on 11/14/1989 BP CONTROLLED (<130/80) due on 11/14/1989 PAP EVERY 5 YEARS due on 11/14/2001 HPV EVERY 5 YEARS due on 11/14/2001 MAMMOGRAM due on 2011 DTAP,TDAP,TD(1 - Tdap) due on 11/07/2017 DILATED RETINAL EXAM due on 10/27/2018 ANNUAL PCP TEAM CHRONIC DISEASE VISIT due on 12/10/2018 SERUM CREATININE due on 12/10/2018 INFLUENZA Completed ASSESSMENT/PLAN: 1. Acute onset sepsis (HCC) - ICD9: 038.9, 995.91, ICD10: A41.9 (primary diagnosis) Symptoms have resolved. Continue abx as prescribed while inpatient. Needs to schedule f/u with ID as recommended. 2. Hospital-acquired pneumonia - ICD9: 486, ICD10: J18.9 See #1 - CONSULT TO INFECTIOUS DISEASES - XR CHEST 2V FRONTAL/LAT 3. Encephalopathy acute - ICD9: 348.30, ICD10: G93.40 Resolved with resolution of pneumonia. 4. Peritonitis ([facility]) - ICD9: 567.9, ICD10: K65.9 Pain improved with diflucan. Continue as prescribed for 4 weeks. Follow up with ID. - CONSULT TO INFECTIOUS DISEASES 5. Orthopnea - ICD9: 786.02, ICD10: R06.01 Repeat CXR, continue dialysis MWF. Will need to continue drawing fluid off of patient to decrease weight, swelling, and help with BP. Recommendations per Dr. Prieto. - XR CHEST 2V FRONTAL/LAT 6. Hypervolemia, unspecified hypervolemia type - ICD9: 276.69, ICD10: E87.70 See #5. 7. ESRD (end stage renal disease) ([facility]) - ICD9: 585.6, ICD10: N18.6 See #5 8. Sacral decubitus ulcer, stage III ([facility]) - ICD9: 707.03, 707.23, ICD10: L89.153 Improving. Advised triple abx ointment and to change positions while lying or sitting ever 30-60 minutes to prevent recurrent ulcer. 9. Acute on chronic anemia - ICD9: 285.9, ICD10: D64.9 Recommendations per nephrology. 10. Elevated TSH - ICD9: 794.5, ICD10: R79.89 Will repeat TSH as requested on initial discharge. - TSH BLD - T4 FREE/FREE THYROX - T3 BLD - THYROID PEROXIDASE ANTIBODY BLOOD 11. Screening mammogram, encounter for - ICD9: V76.12, ICD10: Z12.31 - Set up for mammogram, yearly mammogram recommended - [facility] SCREENING 12. Screening for cervical cancer - ICD9: V76.2, ICD10: Z12.4 - CONSULT TO GYNECOLOGY Kannan Gamble MD PROGRESS Observed: 01/07/2018 Status: COMPLETED Source: [place] 12:00 PM [facility] REPOSITORY HNO ID: [id number] Author: Kannan Narayanan) Tye Service: (none) Author Type: Physician Type: Progress Notes Filed: 01/07/2018 12:00 PM Note Text: meds updated. Nicorette approved as well. PROGRESS Observed: 01/07/2018 Status: COMPLETED Source: [place] 11:25 AM [facility] REPOSITORY HNO ID: [id number] Author: Tracey Escalante) Adan Service: (none) Author Type: Registered Nurse Type: Progress Notes Filed: 01/07/2018 11:58 AM Note Text: TRANSITION CARE MANAGEMENT (TCM) FOLLOW-UP NOTE Provider Action/FYI Nicorette script pended for your approval Pt isn't always hungry and eating. nurse asked about Glucerna supplement. PCC instructed pt to ask oil pit attendant because unsure how much protein they want pt to have. [facility] will see for SN, PT and OT FBS this AM 156 Patient identified by name and date of : YES Spoke to Ag[facility] Sahu nurse Summary: 1+ LE edema on legs, feet and ankles are swollen but not pitting (pt usually wears Women's size 9 but could barely fit into spouse's shoe, Men's size 11) Pt leaving for dialysis immediately after nurses visit. Pt had Stage II pressure ulcer on coccyx, now wound is healed except for very tiny area. recommends applying barrier cream and positioning. Pt reporting pain in legs and coocyx area, informed nurse to tell pt PCP will not order tramadol until [place] has run out. Pt became very anxious during visit and wanted to smoke. She doesn't have Nicorette gum at home; order pended for PCP approval. nurse asking if pt can take Vistaril for anxiety? Asked PCP who approved Vistaril usage. Manager Project plan for next outreach: Will follow up one week Signature Tracey Arellano RN January 07, 2018 PROGRESS Observed: 01/07/2018 Status: COMPLETED Source: [place] 10:23 AM [facility] REPOSITORY HNO ID: [id number] Author: Kannan Gamble Service: (none) Author Type: Physician Type: Progress Notes Filed: 01/07/2018 10:23 AM Note Text: Order for seroquel approved. Just filled 7 days of [place] on 01/04. Would not recommend she be on Tramadol and [place] at the same time. Will not be able to fill today. PROGRESS Observed: 01/07/2018 Status: COMPLETED Source: [place] 10:17 AM [facility] REPOSITORY HNO ID: [id number] Author: Tracey Escalante) Adan Service: (none) Author Type: Registered Nurse Type: Progress Notes Filed: 01/07/2018 10:18 AM Note Text: PRIMARY CARE COORDINATION QUICK NOTE Provider Action/FYI Pended Orders if you approve Patient identified by name and date . Patient phones requesting refills as follows: Pending Prescriptions Disp Refills QUETIAPINE 25 MG TABLET 30 tablet Sig: Take 1 tablet by mouth daily at bedtime. TRAMADOL 50 MG TABLET Sig: Take 1 tablet by mouth every 6 hours as needed for Pain. SARAVANAN Class: C-IV Please review and advise. Tracey Arellano RN PROGRESS Observed: 01/06/2018 Status: COMPLETED Source: [place] 11:47 AM [facility] REPOSITORY HNO ID: [id number] Author: Tracey Escalante) Adan Service: (none) Author Type: Registered Nurse Type: Progress Notes Filed: 01/07/2018 11:25 AM Note Text: TRANSITION CARE MANAGEMENT (TCM) INITIAL CONTACT Provider Action/FYI: Pt having procedure in [place] today for double lumen catheter in chest for dialysis and IV antibiotics. Nurse states pt has 4+ pitting edema No SOB, cough or chest pain No hallucinations or tremors. Spouse states pt is much better since dialysis and current medication regime. Pt has open wound on buttocks, HH coming tomorrow for wound care. Initial contact with patient post discharge, spoke to spouse. They are at [place] office for procedure, spouse will call PCC back to review medications later today. Patient identified by name and . TRANSITION CARE MANAGEMENT: Date of Outreach: 01/06/2018 Outreach Attempt 1: Contact Made Date of Discharge 01/04/2018 Some recent data might be hidden SUMMARY: -Pt discharged from [facility] on 01/04. -Follow up appointment on 01/15 with PCP. -Medication review done with discharge summary. -Admitted for: CKD Sepsis Neuropathy Anxiety and depression Renal Failure Hiatal Hernia Diabetes HTN CONCERNS: Pt having procedure in [place] today. Nurse states pt has 4+ pitting edema No SOB, cough or chest pain Pt has open wound on buttocks, HH coming for wound care. NEW MEDICATIONS: See Medication Updates MEDS HELD/DISCONTINUED: See Medication List BRIEF HOSPITAL COURSE: Presented to [facility] on 01/02 as a transfer from [facility] for hypoxia with pulse oximetry 81% on room air. Placed on a nonrebreather and ultimately high flow nasal cannula oxygen, which was able to be de-escalated to 6 L NC oxygen following hemodialysis. On 01/04 pt was back on room air and hypoxia had resolved. PT evaluated pt and cleared for home with home PT. Pt improved quicker than expected. On 01/04 pt was medically cleared for discharge home. Pt to maintain her M-W-F hemodialysis schedule in [place]. Pt to retain F/U appt in [place] on 01/06. F/U with PCP in 1 week F/U with Dr. Infante, ID in 2 weeks F/U Dr. Cai, nephrology as needed Tracey Arellano RN January 07, 2018 11:19 AM CNPTOUTREACH Observed: 01/06/2018 Status: COMPLETED Source: [place] 12:00 AM [facility] REPOSITORY Patient Outreach ([facility]) COLLETTE KELLY ([id number]) 1970 F TRN Date Time Provider Department 01/06/18 TRACEY ARELLANO (RN) [facility] During your visit today, we recorded the following information about you: Tracey Arellano RN 01/07/2018 11:25 AM Signed TRANSITION CARE MANAGEMENT (TCM) INITIAL CONTACT Provider Action/FYI: Pt having procedure in [place] today for double lumen catheter in chest for dialysis and IV antibiotics. Nurse states pt has 4+ pitting edema No SOB, cough or chest pain No hallucinations or tremors. Spouse states pt is much better since dialysis and current medication regime. Pt has open wound on buttocks, HH coming tomorrow for wound care. Initial contact with patient post discharge, spoke to spouse. They are at [place] office for procedure, spouse will call PCC back to review medications later today. Patient identified by name and . TRANSITION CARE MANAGEMENT: Date of Outreach: 01/06/2018 Outreach Attempt 1: Contact Made Date of Discharge 01/04/2018 Some recent data might be hidden SUMMARY: -Pt discharged from [facility] on 01/04. -Follow up appointment on 01/15 with PCP. -Medication review done with discharge summary. -Admitted for: CKD Sepsis Neuropathy Anxiety and depression Renal Failure Hiatal Hernia Diabetes HTN CONCERNS: Pt having procedure in [place] today. Nurse states pt has 4+ pitting edema No SOB, cough or chest pain Pt has open wound on buttocks, HH coming for wound care. NEW MEDICATIONS: See Medication Updates MEDS HELD/DISCONTINUED: See Medication List BRIEF HOSPITAL COURSE: Presented to [facility] on 01/02 as a transfer from [facility] for hypoxia with pulse oximetry 81% on room air. Placed on a nonrebreather and ultimately high flow nasal cannula oxygen, which was able to be de-escalated to 6 L NC oxygen following hemodialysis. On 01/04 pt was back on room air and hypoxia had resolved. PT evaluated pt and cleared for home with home PT. Pt improved quicker than expected. On 01/04 pt was medically cleared for discharge home. Pt to maintain her M-W-F hemodialysis schedule in [place]. Pt to retain F/U appt in [place] on 01/06. F/U with PCP in 1 week F/U with Dr. Infante ID in 2 weeks F/U Dr. Cai, nephrology as needed Tracey Arellano RN January 07, 2018 11:19 AM Tracey Arellano RN 01/07/2018 10:18 AM Signed PRIMARY CARE COORDINATION QUICK NOTE Provider Action/FYI Pended Orders if you approve Patient identified by name and date . Patient phones requesting refills as follows: Pending Prescriptions Disp Refills QUETIAPINE 25 MG TABLET 30 tablet Sig: Take 1 tablet by mouth daily at bedtime. TRAMADOL 50 MG TABLET Sig: Take 1 tablet by mouth every 6 hours as needed for Pain. SARAVANAN Class: C-IV Please review and advise. ABIGAIL Vila MD 01/07/2018 10:23 AM Signed Order for seroquel approved. Just filled 7 days of [place] on 01/04. Would not recommend she be on Tramadol and [place] at the same time. Will not be able to fill today. Tracey Arellano RN 01/07/2018 11:58 AM Addendum TRANSITION CARE MANAGEMENT (TCM) FOLLOW-UP NOTE Provider Action/WHIT Shanks script pended for your approval Pt isn't always hungry and eating. nurse asked about Glucerna supplement. PCC instructed pt to ask oil pit attendant because unsure how much protein they want pt to have. [facility] will see for SN, PT and OT FBS this AM 156 Patient identified by name and date of : YES Spoke to Agueda Sahu nurse Summary: 1+ LE edema on legs, feet and ankles are swollen but not pitting (pt usually wears Women's size 9 but could barely fit into spouse's shoe, Men's size 11) Pt leaving for dialysis immediately after nurses visit. Pt had Stage II pressure ulcer on coccyx, now wound is healed except for very tiny area. recommends applying barrier cream and positioning. Pt reporting pain in legs and coocyx area, informed nurse to tell pt PCP will not order tramadol until [place] has run out. Pt became very anxious during visit and wanted to smoke. She doesn't have Nicorette gum at home; order pended for PCP approval. nurse asking if pt can take Vistaril for anxiety? Asked PCP who approved Vistaril usage. Manager Project plan for next outreach: Will follow up one week Signature Tracey Arellano RN January 07, 2018 Kannan Gamble MD 01/07/2018 12:00 PM Signed meds updated. Nicorette approved as well. Allergies As of Date: 01/06/2018 Noted Allergy Reaction AUGMENTIN (AMOXICILLIN-POT CLAVUL*07/22/2017 11 - Vomiting BACTRIM (SULFAMETHOXAZOLE-TRIMETH*07/22/2017 14 - Other: See Comments Comments: Chest pain BUSPAR (BUSPIRONE HCL) 10/22/2017 14 - Other: See Comments Comments: Night terrors LASIX (FUROSEMIDE) 07/22/2017 7 - Swelling Date Reviewed: 12/29/2017 Reviewed by: Susan Guillory Ma - Fully Assessed Reason for Visit: Transition Of Care [4074] Primary Visit Diagnosis:ESRD (end stage renal disease) ([facility]) [N18.6] Other Visit Diagnoses:Dry nares [J34.89] Insomnia, unspecified type [G47.00] Nicotine dependence with nicotine- induced disorder, unspecified nicotine product type [F17.209] Acute respiratory failure, unspecified whether with hypoxia or hypercapnia ([facility]) [J96.00] Order(s):QUEtiapine (SEROQUEL) 25 mg tabletTake 1 tablet by mouth daily at bedtime.Disp: 30 tabletRfl: 1 ipratropium-albuterol (DUONEB) 0.5 mg-3 mg(2.5 mg base)/3 mL nebuInhale 3 mL as instructed four times daily as needed (shortness of breath or wheezing). Unit dose packDisp: Rfl: cefTAZidime 2 gram solrInject 2 g intravenously every Friday, Friday, and Friday. Given after dialysisDisp: Rfl: [START ON 01/08/2018] Epoetin Jose (EPOGEN) 20,000 unit/2 mL solnInject 2 mL subcutaneously every Friday and .Disp: Rfl: heparin sodium,porcine (HEPARIN, PORCINE,) 5,000 unit/mL (1 mL) crtg1 mL by INJECTION(UNSPECIFIED PARENTERAL ROUTES) route every 8 hours. During dialysisDisp: Rfl: melatonin 5 mg tabletTake 1 tablet by mouth daily at bedtime.Disp: Rfl: nicotine polacrilex (NICORETTE) 2 mg gumChew 1 each as directed as neededDisp: 100 EachRfl: 3 sodium chloride (SALINE MIST) 0.65 % nasal spray2 sprays each nostril every 2 hours as needed dry nasal passagesDisp: Rfl: vancomycin 1,000 mg injectionInject 1,000 mg intravenously every Friday, Friday, and Friday. Infuse after dialysisDisp: Rfl: ondansetron orally disintegrating (ZOFRAN ODT) 4 mg disintegrating tabletTake 1 tablet by mouth every 6 hours as needed for Nausea/Vomiting.Disp: Rfl: HYDROcodone-acetaminophen (NORCO) 5-325 mg per tabletTake 1 tablet by mouth every 6 hours as needed for Pain for up to 7 days. Earliest Fill Date: 01/07/18Disp: Rfl: 0 Prescriptions as of 01/06/2018 Sig: QUETIAPINE 25 MG TABLET Take 1 tablet by mouth daily * HYDROXYZINE PAMOATE 50 MG CAP* Take 50 mg by mouth four time* INSULIN GLARGINE (U-100) 100 * Inject 5 Units subcutaneously* PANTOPRAZOLE 40 MG TABLET,DEL* Take 40 mg by mouth twice kailash* ACETAMINOPHEN 325 MG CAPSULE Take by mouth every 4 hours a* HUMALOG KWIKPEN (U-100) INSUL* Sliding Scale: <60 >400 Call* SEVELAMER HCL 800 MG TABLET Take 800 mg by mouth three ti* CYCLOBENZAPRINE 10 MG TABLET Take 1 tablet by mouth three * AMLODIPINE 10 MG TABLET 1 tablet once daily. [employer] RX 1 MG-60 MG-300 MCG* IPRATROPIUM-ALBUTEROL 0.5 MG-* Inhale 3 mL as instructed fou* CEFTAZIDIME 2 GRAM INTRAVENOU* Inject 2 g intravenously ever* EPOETIN JOSE 20,000 UNIT/2 ML* Inject 2 mL subcutaneously ev* HEPARIN (PORCINE) 5,000 UNIT/* 1 mL by INJECTION(UNSPECIFIED* MELATONIN 5 MG TABLET Take 1 tablet by mouth daily * NICOTINE (POLACRILEX) 2 MG GUM Chew 1 each as directed as ne* SODIUM CHLORIDE 0.65 % NASAL * 2 sprays each nostril every 2* VANCOMYCIN 1,000 MG INTRAVENO* Inject 1,000 mg intravenously* ONDANSETRON 4 MG DISINTEGRATI* Take 1 tablet by mouth every * HYDROCODONE 5 MG-ACETAMINOPHE* Take 1 tablet by mouth every * CYCLOBENZAPRINE 5 MG TABLET Take 5 mg by mouth three time* SERTRALINE 100 MG TABLET Take 1 tablet by mouth once d* GENTAMICIN 0.1 % TOPICAL CREAM PREDNISONE 20 MG TABLET Take 1 tablet by mouth once d* Patient not taking: Reported on 12/10/2017 CYCLOBENZAPRINE ORAL Take 5 mg by mouth three time* CLONIDINE HCL 0.1 MG TABLET 1 tablet four times daily. Patient not taking: Reported on 12/10/2017 INSULIN ASPART U-100 100 UNI* Inject subcutaneously three t* DOCUSATE SODIUM 100 MG CAPSULE Take 100 mg by mouth once kailash* CALCIUM ACETATE 667 MG CAPSULE Problem List As Of Date 01/06/2018 Noted Resolved ESRD (end stage renal disease) (HCC) [N18.6] INVALID FOR* More... Multiple gastric ulcers [K25.9] Anxiety [F41.9] Depression [F32.9] Prescriptions ordered this encounter Disp Refills Start End QUETIAPINE 25 MG TABLET 30 t* 1 01/07/2018 Route: ORAL Sig: Take 1 tablet by mouth daily at bedtime. IPRATROPIUM-ALBUTEROL 0.5 MG-3 MG(2.* 01/07/2018 Class: Med Update Route: INHALATION Sig: Inhale 3 mL as instructed four times daily as needed (shortness of breath or wheezing). Unit dose pack CEFTAZIDIME 2 GRAM INTRAVENOUS SOLUT* 01/07/2018 Class: Med Update Route: INTRAVENOUS Sig: Inject 2 g intravenously every Friday, Friday, and Friday. Given after dialysis EPOETIN JOSE 20,000 UNIT/2 ML INJECT* 01/08/2018 Class: Med Update Route: SUBCUTANEOUS Sig: Inject 2 mL subcutaneously every Friday and . HEPARIN (PORCINE) 5,000 UNIT/ML (1 M* 01/07/2018 Class: Med Update Route: INJECTION Si mL by INJECTION(UNSPECIFIED PARENTERAL ROUTES) route every 8 hours. During dialysis MELATONIN 5 MG TABLET 01/07/2018 Class: Med Update Route: ORAL Sig: Take 1 tablet by mouth daily at bedtime. NICOTINE (POLACRILEX) 2 MG GUM 100 * 3 01/07/2018 Sig: Chew 1 each as directed as needed SODIUM CHLORIDE 0.65 % NASAL SPRAY A* 01/07/2018 Class: Med Update Si sprays each nostril every 2 hours as needed dry nasal passages VANCOMYCIN 1,000 MG INTRAVENOUS INJE* 01/07/2018 Class: Med Update Route: INTRAVENOUS Sig: Inject 1,000 mg intravenously every Friday, Friday, and Friday. Infuse after dialysis ONDANSETRON 4 MG DISINTEGRATING TABL* 01/07/2018 Class: Med Update Route: ORAL Sig: Take 1 tablet by mouth every 6 hours as needed for Nausea/Vomiting. HYDROCODONE 5 MG-ACETAMINOPHEN 325 M* 0 01/07/2018 01/14/2018 Class: Med Update Route: ORAL Sig: Take 1 tablet by mouth every 6 hours as needed for Pain for up to 7 days. Earliest Fill Date: 01/07/18 Medications Discontinued During This Encounter Epoetin Jose (EPOGEN) 20,000 unit/2 * 12/10/2017 01/07/2018 Class: Med Update Route: SUBCUTANEOUS Sig: Inject 2 mL subcutaneously once every month. Disc: Reason for discontinue is not on file. Encounter Status:Closed by TRACEY ARELLANO on 01/07/18 CBC Collected: 01/04/2018 Status: F Source: [facility] 4:48 AM [facility] REPOSITORY TYPE CODE TESTS RESULT OUT OF REFERENCE UNITS RANGE LAB WBC(LOINC) 4.50-10.80 10 3/mcL WBC 7.10 LAB RBCCT(LOINC 4.10-5.30 10 6/mcL ) Low RBC 2.38 LAB HGB(LOINC) 12.0-16.0 G/dL Low Hgb 7.1 LAB HCT(LOINC) 34.0-46.0 % Low Hct 21.4 LAB MCV(LOINC) 80.0-99.0 fL MCV 89.8 LAB MCH(LOINC) 27.0-33.0 pg MCH 29.7 LAB MCHC(LOINC) 32.0-36.0 G/dL MCHC 33.0 LAB RDW(LOINC) 11.5-15.5 % RDW 14.1 LAB PLT(LOINC) 150-450 10 3/mcL Platelet 429 LAB MPV(LOINC) 6.6-10.5 fL MPV 7.7 Performed By: #### CBC, ADIFF, ANEU, MG, BMP, GFR #### [place] [address] .AUTO DIFF Collected: 01/04/2018 Status: F Source: [facility] 4:48 AM [facility] REPOSITORY TYPE CODE TESTS RESULT OUT OF REFERENCE UNITS RANGE LAB CAITLYN(LOINC) 50.0-75.0 % Neutrophil % 62.5 LAB LYM(LOINC) 20.0-40.0 % Low Lymphocyte % 19.2 LAB MON(LOINC) 2.0-13.0 % Monocyte % 11.7 LAB EO(LOINC) 0.0-6.0 % Eosinophil % 5.4 LAB BAS(LOINC) 0.0-2.5 % Basophil % 1.2 LAB ABLYM(LOIN 0.90-4.32 10 3/mcL C) Lymphocyte, 1.40 Absolute LAB MAHAD(LOINC 0.09-1.40 10 3/mcL ) Monocyte, 0.80 Absolute LAB AEOS(LOINC 0.00-0.65 10 3/mcL ) Eosinophil, 0.40 Absolute LAB ABAS(LOINC 0.00-0.27 10 3/mcL ) Basophil, 0.10 Absolute Performed By: #### CBC, ADIFF, ANEU, MG, BMP, GFR #### [address] [address] .NEUABS Collected: 01/04/2018 Status: F Source: [facility] 4:48 AM [facility] REPOSITORY TYPE CODE TESTS RESULT OUT OF REFERENCE UNITS RANGE LAB ANEU(LOINC) 2.25-8.10 10 3/mcL Neutrophil, 4.40 Absolute Performed By: #### CBC, ADIFF, ANEU, MG, BMP, GFR #### [place] [address] MG Collected: 01/04/2018 Status: F Source: [facility] 4:48 AM [facility] REPOSITORY TYPE CODE TESTS RESULT OUT OF REFERENCE UNITS RANGE LAB MG(LOINC) 1.6-2.4 mg/dL Magnesium Lvl 2.2 Performed By: #### CBC, ADIFF, ANEU, MG, BMP, GFR #### [place] [address] BMP Collected: 01/04/2018 Status: F Source: [facility] 4:48 AM [facility] REPOSITORY TYPE CODE TESTS RESULT OUT OF REFERENCE UNITS RANGE LAB GLU(LOINC) 70-110 mg/dL Glucose High Level 146 LAB NA(LOINC) 136-145 mEq/L Sodium Level 136 LAB K(LOINC) 3.5-5.0 mEq/L Potassium Level 4.4 LAB CL(LOINC) 98-110 mEq/L Chloride 100 LAB CO2(LOINC) 22-32 mEq/L CO2 26 LAB EBAL(LOINC 4.0-15.0 mEq/L ) Electrolyte Balance 10.0 LAB BUN(LOINC) 8.0-22.0 mg/dL BUN High 24.0 LAB CRE(LOINC) 0.50-1.20 mg/dL Creatinine High Lvl (s) 4.66 LAB BC(LOINC) 10.0-22.0 ratio Low BUN/Creatinine 5.2 Ratio LAB CA(LOINC) 8.4-10.1 mg/dL Low Calcium Lvl 8.3 Performed By: #### CBC, ADIFF, ANEU, MG, BMP, GFR #### [address] [address] .GFR Collected: 01/04/2018 Status: F Source: [facility] 4:48 AM [facility] REPOSITORY TYPE CODE TESTS RESULT OUT OF REFERENCE UNITS RANGE LAB GFRAA(LOINC ml/min/1.73 ) sqm GFR 12 Haitian Result Comment: GFR Population mean for , Non- Americans Ages 20-29 = 116 mL/min/1.73 sq.m. Ages 30-39 = 107 mL/min/1.73 sq.m. Ages 40-49 = 99 mL/min/1.73 sq.m. Ages 50-59 = 93 mL/min/1.73 sq.m. Ages 60-69 = 85 mL/min/1.73 sq.m. Ages 70+ = 75 mL/min/1.73 sq.m. Chronic Kidney Disease: Less than 60 mL/min/1.73 square meters End Stage Renal Disease: Less than 15 mL/min/1.73 square meters LAB GFRNO(LOINC) ml/min/1.73sqm GFR Non- 10 Result Comment: GFR Population mean for , Non- Americans Ages 20-29 = 116 mL/min/1.73 sq.m. Ages 30-39 = 107 mL/min/1.73 sq.m. Ages 40-49 = 99 mL/min/1.73 sq.m. Ages 50-59 = 93 mL/min/1.73 sq.m. Ages 60-69 = 85 mL/min/1.73 sq.m. Ages 70+ = 75 mL/min/1.73 sq.m. Chronic Kidney Disease: Less than 60 mL/min/1.73 square meters End Stage Renal Disease: Less than 15 mL/min/1.73 square meters Performed By: #### CBC, ADIFF, ANEU, MG, BMP, GFR #### [address] [address] CBC Collected: 01/03/2018 Status: F Source: [facility] 4:18 AM [facility] REPOSITORY TYPE CODE TESTS RESULT OUT OF REFERENCE UNITS RANGE LAB WBC(LOINC) 4.50-10.80 10 3/mcL WBC 7.20 LAB RBCCT(LOINC 4.10-5.30 10 6/mcL ) Low RBC 2.45 LAB HGB(LOINC) 12.0-16.0 G/dL Low Hgb 7.2 LAB HCT(LOINC) 34.0-46.0 % Low Hct 22.0 LAB MCV(LOINC) 80.0-99.0 fL MCV 89.8 LAB MCH(LOINC) 27.0-33.0 pg MCH 29.5 LAB MCHC(LOINC) 32.0-36.0 G/dL MCHC 32.9 LAB RDW(LOINC) 11.5-15.5 % RDW 14.2 LAB PLT(LOINC) 150-450 10 3/mcL Platelet 418 LAB MPV(LOINC) 6.6-10.5 fL MPV 7.5 Performed By: #### CBC, ADIFF, ANEU, BMP, GFR #### [address] [address] .AUTO DIFF Collected: 01/03/2018 Status: F Source: [facility] 4:18 AM [facility] REPOSITORY TYPE CODE TESTS RESULT OUT OF REFERENCE UNITS RANGE LAB CAITLYN(LOINC) 50.0-75.0 % Neutrophil % 65.6 LAB LYM(LOINC) 20.0-40.0 % Low Lymphocyte % 17.6 LAB MON(LOINC) 2.0-13.0 % Monocyte % 10.6 LAB EO(LOINC) 0.0-6.0 % Eosinophil % 5.0 LAB BAS(LOINC) 0.0-2.5 % Basophil % 1.2 LAB ABLYM(LOIN 0.90-4.32 10 3/mcL C) Lymphocyte, 1.30 Absolute LAB MAHAD(LOINC 0.09-1.40 10 3/mcL ) Monocyte, 0.80 Absolute LAB AEOS(LOINC 0.00-0.65 10 3/mcL ) Eosinophil, 0.40 Absolute LAB ABAS(LOINC 0.00-0.27 10 3/mcL ) Basophil, 0.10 Absolute Performed By: #### CBC, ADIFF, ANEU, BMP, GFR #### [address] [address] .NEUABS Collected: 01/03/2018 Status: F Source: [facility] 4:18 AM [facility] REPOSITORY TYPE CODE TESTS RESULT OUT OF REFERENCE UNITS RANGE LAB ANEU(LOINC) 2.25-8.10 10 3/mcL Neutrophil, 4.70 Absolute Performed By: #### PRATEEK AGUIRRE ANEU, BMP, GFR #### [address] [address] BMP Collected: 01/03/2018 Status: F Source: [facility] 4:18 AM [facility] REPOSITORY TYPE CODE TESTS RESULT OUT OF REFERENCE UNITS RANGE LAB GLU(LOINC) 70-110 mg/dL Glucose Level 71 LAB NA(LOINC) 136-145 mEq/L Sodium Level 138 LAB K(LOINC) 3.5-5.0 mEq/L Potassium Level 4.0 LAB CL(LOINC) 98-110 mEq/L Chloride 102 LAB CO2(LOINC) 22-32 mEq/L CO2 29 LAB EBAL(LOINC 4.0-15.0 mEq/L ) Electrolyte Balance 7.0 LAB BUN(LOINC) 8.0-22.0 mg/dL BUN 14.0 LAB CRE(LOINC) 0.50-1.20 mg/dL Creatinine High Lvl (s) 3.49 LAB BC(LOINC) 10.0-22.0 ratio Low BUN/Creatinine 4.0 Ratio LAB CA(LOINC) 8.4-10.1 mg/dL Calcium Lvl 8.4 Performed By: #### PRATEEK AGUIRRE, ANEU, BMP, GFR #### [address] [address] .GFR Collected: 01/03/2018 Status: F Source: [facility] 4:18 AM [facility] REPOSITORY TYPE CODE TESTS RESULT OUT OF REFERENCE UNITS RANGE LAB GFRAA(LOINC ml/min/1.73 ) sqm GFR 17 Haitian Result Comment: GFR Population mean for , Non- Americans Ages 20-29 = 116 mL/min/1.73 sq.m. Ages 30-39 = 107 mL/min/1.73 sq.m. Ages 40-49 = 99 mL/min/1.73 sq.m. Ages 50-59 = 93 mL/min/1.73 sq.m. Ages 60-69 = 85 mL/min/1.73 sq.m. Ages 70+ = 75 mL/min/1.73 sq.m. Chronic Kidney Disease: Less than 60 mL/min/1.73 square meters End Stage Renal Disease: Less than 15 mL/min/1.73 square meters LAB GFRNO(LOINC) ml/min/1.73sqm GFR Non- 14 Result Comment: GFR Population mean for , Non- Americans Ages 20-29 = 116 mL/min/1.73 sq.m. Ages 30-39 = 107 mL/min/1.73 sq.m. Ages 40-49 = 99 mL/min/1.73 sq.m. Ages 50-59 = 93 mL/min/1.73 sq.m. Ages 60-69 = 85 mL/min/1.73 sq.m. Ages 70+ = 75 mL/min/1.73 sq.m. Chronic Kidney Disease: Less than 60 mL/min/1.73 square meters End Stage Renal Disease: Less than 15 mL/min/1.73 square meters Performed By: #### CBC, ADIFF, ANEU, BMP, GFR #### [address] [address] CBC Collected: 01/02/2018 Status: F Source: [facility] 8:23 AM [facility] REPOSITORY TYPE CODE TESTS RESULT OUT OF REFERENCE UNITS RANGE LAB WBC(LOINC) 4.50-10.80 10 3/mcL WBC 7.00 LAB RBCCT(LOINC 4.10-5.30 10 6/mcL ) Low RBC 2.37 LAB HGB(LOINC) 12.0-16.0 G/dL Low Hgb 7.0 LAB HCT(LOINC) 34.0-46.0 % Low Hct 21.3 LAB MCV(LOINC) 80.0-99.0 fL MCV 89.8 LAB MCH(LOINC) 27.0-33.0 pg MCH 29.4 LAB MCHC(LOINC) 32.0-36.0 G/dL MCHC 32.7 LAB RDW(LOINC) 11.5-15.5 % RDW 14.2 LAB PLT(LOINC) 150-450 10 3/mcL Platelet 385 LAB MPV(LOINC) 6.6-10.5 fL MPV 7.7 Performed By: #### CBC, ADIFF, ANEU, BMP, GFR, PBNP #### [address] [address] .AUTO DIFF Collected: 01/02/2018 Status: F Source: [facility] 8:23 AM [facility] REPOSITORY TYPE CODE TESTS RESULT OUT OF REFERENCE UNITS RANGE LAB CAITLYN(LOINC) 50.0-75.0 % Neutrophil % 66.6 LAB LYM(LOINC) 20.0-40.0 % Low Lymphocyte % 17.1 LAB MON(LOINC) 2.0-13.0 % Monocyte % 10.5 LAB EO(LOINC) 0.0-6.0 % Eosinophil % 4.6 LAB BAS(LOINC) 0.0-2.5 % Basophil % 1.2 LAB ABLYM(LOIN 0.90-4.32 10 3/mcL C) Lymphocyte, 1.20 Absolute LAB MAHAD(LOINC 0.09-1.40 10 3/mcL ) Monocyte, 0.70 Absolute LAB AEOS(LOINC 0.00-0.65 10 3/mcL ) Eosinophil, 0.30 Absolute LAB ABAS(LOINC 0.00-0.27 10 3/mcL ) Basophil, 0.10 Absolute Performed By: #### CBC, ADIFF, ANEU, BMP, GFR, PBNP #### [place] [address] .NEUABS Collected: 01/02/2018 Status: F Source: [facility] 8:23 AM [facility] REPOSITORY TYPE CODE TESTS RESULT OUT OF REFERENCE UNITS RANGE LAB ANEU(LOINC) 2.25-8.10 10 3/mcL Neutrophil, 4.70 Absolute Performed By: #### CBC, ADIFF, ANEU, BMP, GFR, PBNP #### [place] [address] BMP Collected: 01/02/2018 Status: F Source: [facility] 8:23 AM [facility] REPOSITORY TYPE CODE TESTS RESULT OUT OF REFERENCE UNITS RANGE LAB GLU(LOINC) 70-110 mg/dL Glucose Level 93 LAB NA(LOINC) 136-145 mEq/L Sodium Level 137 LAB K(LOINC) 3.5-5.0 mEq/L Potassium Level 4.5 LAB CL(LOINC) 98-110 mEq/L Chloride 98 LAB CO2(LOINC) 22-32 mEq/L CO2 30 LAB EBAL(LOINC 4.0-15.0 mEq/L ) Electrolyte Balance 9.0 LAB BUN(LOINC) 8.0-22.0 mg/dL BUN High 23.0 LAB CRE(LOINC) 0.50-1.20 mg/dL Creatinine High Lvl (s) 5.01 LAB BC(LOINC) 10.0-22.0 ratio Low BUN/Creatinine 4.6 Ratio LAB CA(LOINC) 8.4-10.1 mg/dL Low Calcium Lvl 8.2 Performed By: #### CBC, ADIFF, ANEU, BMP, GFR, PBNP #### [place] [address] .GFR Collected: 01/02/2018 Status: F Source: [facility] 8:23 AM [facility] REPOSITORY TYPE CODE TESTS RESULT OUT OF REFERENCE UNITS RANGE LAB GFRAA(LOINC ml/min/1.73 ) sqm GFR 11 Haitian Result Comment: GFR Population mean for , Non- Americans Ages 20-29 = 116 mL/min/1.73 sq.m. Ages 30-39 = 107 mL/min/1.73 sq.m. Ages 40-49 = 99 mL/min/1.73 sq.m. Ages 50-59 = 93 mL/min/1.73 sq.m. Ages 60-69 = 85 mL/min/1.73 sq.m. Ages 70+ = 75 mL/min/1.73 sq.m. Chronic Kidney Disease: Less than 60 mL/min/1.73 square meters End Stage Renal Disease: Less than 15 mL/min/1.73 square meters LAB GFRNO(LOINC) ml/min/1.73sqm GFR Non- 9 Result Comment: GFR Population mean for , Non- Americans Ages 20-29 = 116 mL/min/1.73 sq.m. Ages 30-39 = 107 mL/min/1.73 sq.m. Ages 40-49 = 99 mL/min/1.73 sq.m. Ages 50-59 = 93 mL/min/1.73 sq.m. Ages 60-69 = 85 mL/min/1.73 sq.m. Ages 70+ = 75 mL/min/1.73 sq.m. Chronic Kidney Disease: Less than 60 mL/min/1.73 square meters End Stage Renal Disease: Less than 15 mL/min/1.73 square meters Performed By: #### CBC, ADIFF, ANEU, BMP, GFR, PBNP #### [facility] [address] [place] [address] PBNP Collected: 01/02/2018 Status: F Source: [facility] 8:23 AM [facility] REPOSITORY TYPE CODE TESTS RESULT OUT OF REFERENCE UNITS RANGE LAB PBNP(LOINC) 0-450 pg/mL High N-Terminal [id number] proBNP Result Comment: NT-proBNP results of less than 300 pg/mL effectively rules out acute congestive heart failure with 99% negative predictive value. Performed By: #### CBC, ADIFF, ANEU, BMP, GFR, PBNP #### [facility] [address] [place] [address] XR CHEST 1 VIEW Observed: 01/02/2018 Status: F Source: [facility] 8:18 AM [facility] REPOSITORY ORIGINAL Chest one view 8:38 AM 01/02/2018 HISTORY: Shortness of breath COMPARISON: 12/12/2017 Central venous catheters terminate at the SVC. The heart is mildly enlarged. The vessels are congested and there is moderately prominent bilateral interstitial edema. This is greater than on the prior e xam. Minimal pleural fluid is noted bilaterally. IMPRESSION: Moderate CHF new since the previous study. Interpreted By: Adin Orozco MD Preliminary Report By: Adin Orozco MD Electronically Signed By: Adin Orozco MD Dictated Date: 01/02/2018 8:36:40 AM Prelim Date: 01/02/2018 8:36:40 AM Sign Date: 01/02/2018 8:37:13 AM BG Collected: 01/02/2018 Status: F Source: [facility] 8:17 AM [facility] REPOSITORY TYPE CODE TESTS RESULT OUT OF REFERENCE UNITS RANGE LAB PH(LOINC) 7.380-7.460 pH High 7.467 LAB PCO2(LOINC 32.0-46.0 mmHg ) pCO2 42.7 LAB PO2(LOINC) 74.0-108.0 mmHg Low pO2 57.5 LAB HCO3(LOINC 21.0-29.0 mmol/L ) HCO3 High 30.2 LAB TCO2(LOINC 22.0-30.0 mmol/L ) CO2 Totl High 31.5 LAB BE(LOINC) mmol/L Base Excess 5.9 LAB O2SAT(LOIN 92.0-96.0 % C) O2 Sat 92.9 LAB BPRES(LOIN mmHg C) Barometric 731 Pressure Performed By: #### BG #### [facility] [address] [place] [address] CNCO Observed: 01/02/2018 Status: COMPLETED Source: [place] 12:00 AM [facility] [place] REPOSITORY Letter Text Kidney and Pancreas Transplant Pre-Transplant Department January 09, 2018 Isaías Cai MD [address] [place] [address] Patient Name: Collette Kelly Patient Address: [address] [place] [address] [id number] Isaías Cai, At this time we are unable to make a determination in order to place the above named patient on the [facility] donor kidney transplant waitlist because needs to continue rehabilitation, completely stop smoking and show better hemoglobin A1c control in the next 6 months. The patient has been notified If she desires to pursue a kidney transplant in the future, please have the patient call the pre-transplant office at [phone] or , ext [phone]. Sincerely yours, Adry Eagle RN [facility] Kidney and Pancreas Transplant Team PROTHROMBIN TIME AND Collected: 01/01/2018 Status: F Source: [facility] [facility] 11:[address] [facility] REPOSITORY TYPE CODE TESTS RESULT OUT OF REFERENCE UNITS RANGE LAB PROTHROMBIN TIME AND INR(LOINC) PROTHROMBIN TIME AND INR Result Comment: PROTHROMBIN TIME AND INR LAB PT-COUMADIN(LOINC) sec PT-COUMADIN 13.1 LAB INR(LOINC) 0.8 - 1.2 INR 1.2 Result Comment: THE HEMOSIL THROMBOPLASTIN REAGENT USED IN THE PROTHROMBIN TIME TEST INTERACTS WITH THE DRUG CUBICIN (DAPTOMYCIN) AND WILL RESULT IN FALSELY ELEVATED PT / INR RESULTS INR INTERPRETATION INR INDICATION PREVENTION AND TREATMENT OF THROMBOEMBOLISM ASSOCIATED WITH: 2.0 - 3.0 ATRIAL FIBRILLATION, BIOPROSTHETIC HEART VALVES, PULMONARY EMBOLISM, VENOUS THROMBOSIS, SYSTEMIC EMBOLISM POST MYOCARDIAL INFARCTION 2.5 - 3.5 MECHANICAL HEART VALVES Performed By: #### [id number] #### [facility],[address] [place] [address] APTT Collected: 01/01/2018 Status: F Source: [facility] 11:[address] [facility] REPOSITORY TYPE CODE TESTS RESULT OUT OF RANGE REFERENCE UNITS LAB PTT(LOINC) 21.6 - 35.4 sec PTT 28.6 Performed By: #### [id number] #### [facility],[address] [place] [address] BB TYPE & SCREEN Collected: 01/01/2018 Status: F Source: [facility] 11:[address] [facility] REPOSITORY TYPE CODE TESTS RESULT OUT OF REFERENCE UNITS RANGE LAB BB TYPE & SCREEN(LOIN C) BB TYPE & SCREEN Result Comment: TYPE, Rh, AND SCREEN LAB ABO(LOINC) ABO B LAB Rh(LOINC) Rh NEG LAB ANTIBODY SCR(LOINC) ANTIBODY negative SCR Performed By: #### [id number] #### [place] [address] BB CROSSMATCH 1ST UNIT Collected: 01/01/2018 Status: F Source: [facility] 11:28 [facility] REPOSITORY TYPE CODE TESTS RESULT OUT OF REFERENCE UNITS RANGE LAB BB CROSSMATCH 1ST UNIT(LOINC) BB CROSSMATCH 1ST UNIT Result Comment: [id number] REQUEST FOR BLOOD OR BLOOD COMPONENT UNIT #_1 01/02/18.0020.ADL. LAB Component(LOINC) Component [facility] LAB Pt's ABO/Rh(LOINC) Pt's ABO/Rh B NEGATIVE LAB Donor's ABO/Rh(LOINC) Donor's ABO/Rh O NEGATIVE LAB Donor's Unit No(LOINC) Donor's Unit No [id number] LAB N(LOINC) Unit Exp Date 02/06/2018 LAB Compatibility(LOINC) Compatibility COMPATIBLE Result Comment: { Pt's BB ID # [id number] Transfusion comments I have confirmed the above required items at the time of unit issue: Issuing Tech ........................ Date/Time .................. PT ID VERIFIED AT BEDSIDE PRIOR TO BLOOD ADMINISTRATION PT ID VERIFIED AND DOCUMENTED BY TWO NURSES PT Name same on unit tag,BB ID Bracelet, and blood administration form Verify PT name by asking to state name(if poss.) Pt's MR Number on unit tag is the same as BB ID Bracelet and admin form Verify Pt's ABO Group/Rh from admin form, and unit tag Verify unit number from unit and blood administration form Informed consent obtained? I have checked the above listed items and there were no discrepancies #1 RN signature .................... Date/Time .................. #2 RN signature .................... Date/Time .................. RECORD OF PATIENT'S RESPONSE Date/Time Prior to transfusion ......... Start of transfusion ......... 15 minute check ......... Blood complete/DC ......... SITE: Central Vein Peripheral Vein Central Artery Peripheral Artery AMOUNT GIVEN (1/4, 1/2, 3/4 or full unit) WAS THERE A REACTION TO THE TRANSFUSION? Yes... No... If so, notify the physician and the lab immediately, and initiate a Blood Transfusion Reaction form. COMPLETE FORMS ENTIRELY. KEEP CARDBOARD COPY ATTACHED TO UNIT. PLACE WHITE COPY ON CHART. RETURN YELLOW COPY TO [facility] [place] UPON COMPLETION OF TRANSFUSION. Performed By: #### [id number] #### [place] [address] OCCULT BLOOD Collected: 01/01/2018 Status: F Source: [facility] [place](NON-CANCER SCREENING) 11:00 PM [facility] REPOSITORY TYPE CODE TESTS RESULT OUT OF REFERENCE UNITS RANGE LAB OCCULT BLOOD [NEGATIVE STOOL(LOINC) OCCULT NEGATIVE BLOOD STOOL Performed By: #### [id number] #### [place] [address] CHEST 1 VIEW Observed: 01/01/2018 Status: F Source: [facility] 10:[address] [facility] REPOSITORY [place] [address] Patient: COLLETTE KELLY Phone#: : [phone] Age: 47 Gender: F Pt. Type: ER Account: [id number] Location: [facility] Ordering: MOHSEN BERRY Exam Date: 01/01/2018/21:24 Family Phys: JAROCHO BARROW Charge Code: [id number] Physician: Beadle Order #: [id number] DLP Dose#: PROCEDURE: X-RAY CHEST 1 VIEW COMPARISON: [facility], , CHEST 1 VIEW, 11/21/2017, 10:16. INDICATIONS: Shortness of breath FINDINGS: LUNGS: Atelectasis is present in the left lower thorax infiltrate cannot be excluded. VASCULATURE: Normal. Unremarkable pulmonary vasculature. CARDIAC: Normal. No cardiac silhouette abnormality or cardiomegaly. MEDIASTINUM: Normal. No visible mass or adenopathy. PLEURA: There is minimal blunting of the costophrenic angles consistent with small effusions. BONES: Curvature of the thoracic spine to the right lumbar spine to the left is present. OTHER: Internal jugular catheter is present. The tip is visualized in the superior vena cava. CONCLUSION: 1. Small bilateral effusions. 2. Left lower lobe atelectasis. Dictated by: Laurel Collins MD on 01/02/2018 at 8:25 Approved by: Laurel Collins MD on 01/02/2018 at 8:25 ARTERIAL BLOOD GAS Collected: 01/01/2018 Status: F Source: [facility] ANALYSIS 9:[address] [facility] REPOSITORY TYPE CODE TESTS RESULT OUT OF REFERENCE UNITS RANGE LAB ARTERIAL BLOOD GAS ANALYSIS(LOINC ) ARTERIAL BLOOD GAS ANALYSIS Result Comment: ARTERIAL BLOOD GAS LAB pH(LOINC) 7.35 - 7.45 High 7.54 pH LAB PCO2(LOINC) 35 - 45 mm Hg 37 PCO2 LAB PO2(LOINC) 80 - 105 mm Hg Low 67 PO2 LAB HCO3(LOINC) 20 - 24 mmol/L High 31 HCO3 LAB BE(LOINC) -2 - 3 High 8 BE LAB SaO2(LOINC) 95 - 98 95 SaO2 Result Comment: TIME RESULT CALLED _[id number] 01/01/18.2156.CRISTY. { FIO2/LPM 5L LAB MODALITY(LOINC) MODALITY NC LAB SPO2(LOINC) SPO2 97 LAB TOTAL RR(LOINC) TOTAL RR 16 LAB PULSE(LOINC) PULSE 112 LAB SAMPLE SITE(LOINC) SAMPLE SITE RR LAB VENT(LOINC) VENT N/A LAB ALLENS TEST(LOINC) ALLENS TEST POS Result Comment: { TIME CALLED 2200 Performed By: #### [id number] #### [facility],[address] [place] [address] CBC Collected: 01/01/2018 Status: F Source: [place] [place] 9:[address] [facility] REPOSITORY TYPE CODE TESTS RESULT OUT OF RANGE REFERENCE UNITS LAB CBC(LOINC) CBC Result Comment: CBC-COMPLETE BLOOD COUNT LAB WBC(LOINC) 4.5 - 10.8 x 10EE3/UL WBC 7.9 LAB RBC(LOINC) 4.10 - x 10EE6/UL Low 5.30 RBC 2.37 LAB HEMOGLOBIN(LOINC 12.0 - g/dl ) Low 16.0 HEMOGLOBIN 7.1 LAB HEMATOCRIT(LOINC 34.0 - % ) Low 46.0 Alert HEMATOCRIT 20.8 Result Comment: { CALLED TO KAYCEE BY LMM @ 2200 { READ BACK BY KAYCEE RA 4305 { TEST REPEATED LAB MCV(LOINC) 80 - 99 fl MCV 88 LAB MCH(LOINC) 27 - 33 pg MCH 30 LAB MCHC(LOINC) 32 - 36 X10 3 MCHC 34 LAB RDW/CV(LOINC) 12.0 - 15.6 % RDW/CV 14.0 LAB PLATELET(LOINC) 150 - 450 x10EE3/UL PLATELET 416 LAB MPV(LOINC) 6.6 - 10.5 fl MPV 7.4 Result Comment: AUTOMATED DIFFERENTIAL LAB NEUT %(LOINC) 46.0 - 76.0 % NEUT % 66.8 LAB LYMPH %(LOINC) 20.0 - 45.0 % LYMPH % Low 19.4 LAB MONOS %(LOINC) 0.0 - 10.0 % MONOS % 9.1 LAB EO %(LOINC) 0.0 - 7.0 % EO % 3.4 LAB BASO %(LOINC) 0.0 - 2.0 % BASO % 1.3 LAB Lymph #(LOINC) 0.80 - 2.80 x10EE3/U L Lymph # 1.50 LAB Neut #(LOINC) 1.50 - 7.10 x10EE3/U L Neut # 5.30 LAB Iron #(LOINC) 0.20 - 1.00 x10EE3/U L Iron # 0.70 LAB EO #(LOINC) 0.00 - 0.50 x10EE3/U L EO # 0.30 LAB Baso #(LOINC) 0.00 - 0.10 x10EE3/U L Baso # 0.10 LAB MANUAL DIFF(LOINC) MANUAL DIFF N/A LAB MORPHOLOGY(LOINC ) MORPHOLOGY N/A Result Comment: {CD] Performed By: #### [id number] #### [facility],[address] [place] [address] CMP WITH EGFR Collected: 01/01/2018 Status: F Source: [facility] 9:[address] [facility] REPOSITORY TYPE CODE TESTS RESULT OUT OF RANGE REFERENCE UNITS LAB CMP with eGFR(LOINC) CMP with eGFR Result Comment: COMPREHENSIVE METABOLIC PANEL LAB SODIUM(LOINC) 136 - 145 mmol/l SODIUM Low 135 LAB POTASSIUM(LOINC) 3.5 - 5.1 mmol/L POTASSIUM 4.3 LAB CHLORIDE(LOINC) 98 - 107 mmol/L CHLORIDE Low 95 LAB CO2(LOINC) 21.0 - mmol/L 31.0 CO2 30.3 LAB GLUCOSE(LOINC) 74 - 106 mg/dl GLUCOSE High 145 LAB BUN(LOINC) 6 - 20 mg/dl BUN High 21 LAB CREATININE(LOINC) 0.6 - 1.2 mg/dl High CREATININE 4.6 LAB AST/SGOT(LOINC) 13 - 39 U/L AST/SGOT 14 LAB ALK PHOS(LOINC) 38 - 126 U/L ALK PHOS High 165 LAB CALCIUM(LOINC) 8.6 - mg/dl 10.2 CALCIUM Low 8.4 LAB TOTAL 6.4 - 8.3 g/dl PROTEIN(LOINC) TOTAL PROTEIN 6.6 LAB ALBUMIN(LOINC) 3.4 - 4.8 g/dL ALBUMIN Low 2.6 LAB GLOBULIN(LOINC) 1.5 - 3.8 G/DL GLOBULIN High 4.0 LAB A/G RATIO(LOINC) 0.9 - 1.6 A/G Low RATIO 0.7 LAB TOTAL BILI(LOINC) 0.0 - 1.5 mg/dl TOTAL BILI 0.3 LAB B/C RATIO(LOINC) 0 - 30 ratio B/C RATIO 5 LAB ALT/SGPT(LOINC) 8 - 35 U/L ALT/SGPT 16 LAB ANION GAP(LOINC) 10 - 20 mmol/L ANION GAP 14 LAB AGE(LOINC) years AGE 47 LAB eGFR(LOINC) 60 - 999 ML/MINUTE eGFR Low 10 LAB eGFR(AA)(LOINC) 60 - 999 ML/MINUTE eGFR(AA) Low 12 Result Comment: ACCORDING TO THE NATIONAL KIDNEY DISEASE EDUCATION PROGRAM(NKDE), A NORMAL eGFR IS A VALUE GREATER THAN OR EQUAL TO 60 ML/MIN/1.73 SQ METERS. CHRONIC KIDNEY DISEASE: <60mL/MIN/1.73 SQ METERS KIDNEY FAILURE: <15mL/MIN/1.73 SQ METERS THIS TEST SHOULD ONLY BE USED FOR PATIENTS 18 YEARS OF AGE AND OLDER. Performed By: #### [id number] #### [facility],[address] [place], [place] [id number] [place] Collected: 01/01/2018 Status: F Source: [facility] 9:[address] [facility] REPOSITORY TYPE CODE TESTS RESULT OUT OF REFERENCE UNITS RANGE LAB TROPONIN 0.00 - 0.05 ng/ml I(LOINC) High Alert TROPONIN I 0.08 Result Comment: { CALLED TO RUDOLPH BY LMM @ 2216 { READ BACK BY RUDOLPH RA 2214 Elevated troponin (above the 99th percentile) usually indicates myocardial ischemia. Results must be interpreted within the clinical setting. 1.Non-ischemic pathology can also cause elevated troponin levels (e.g., acute pulmonary embolism, myocarditis, pericarditis, heart failure, intracranial injury, rhabdomyolisis, sepsis, shock and renal insufficiency). 2.Approximately 1% of healthy adults have elevated troponin levels. 3.Analytical false positive results rarely occur(due to multiple interferences such as heterophile antibodies). Performed By: #### [id number] #### [facility],[address] [place], [place] [address] BNP (B-TYPE NATRIURETIC Collected: 01/01/2018 Status: F Source: KANA TRIVEDI PEPTIDE) 9:[address] [facility] REPOSITORY TYPE CODE TESTS RESULT OUT OF RANGE REFERENCE UNITS LAB BNP(LOINC) 1 - 100 pg/ml High BNP 1727 Performed By: #### [id number] #### [place] [id number] Observed: 01/01/2018 Status: F Source: KANA TRIVEDI CULTURE BLOOD 9:[address] [facility] REPOSITORY CULTURE BLOOD CULTURE BLOOD SET: 1 of 2 24HOUR REPORT NEGATIVE 48HOUR REPORT NEGATIVE 72HOUR REPORT NEGATIVE M I C R O B I O L O G Y R E P O R T FINAL Antimicrobial Susceptibility and Organism Identification Report Specimen Number : [id number] Requested : 01/01/18 Specimen Source : BLOOD Collected : 01/01/18 21:40 [facility] : Emergency Room Received : 01/01/18 21:40 Requesting Physician : beverly Patient/Specimen Tests and Comments Specimen Comments FINAL REPORT: No Growth at 5 Days Tech : Source : BLOOD ID # : [id number] FINAL Report Date : / / : Collected : 01/01/18 21:40 01/07/18.1015.LIZZIE. 01/07/18.1015.KLS.COMPLETE Performed By: #### [id number] #### [facility],[address] [place] [address] LACTATE Collected: 01/01/2018 Status: F Source: K[facility] TRIVEDI 9:[address] [facility] REPOSITORY TYPE CODE TESTS RESULT OUT OF REFERENCE UNITS RANGE LAB LACTATE(LIZETT 4.5 - 18.0 mg/dL NC) LACTATE 6.4 Performed By: #### [id number] #### [facility],[address] [place] [id number] Observed: 01/01/2018 Status: F Source: [facility] CULTURE BLOOD 9:[address] [facility] REPOSITORY CULTURE BLOOD CULTURE BLOOD SET: 2 of 2 24HOUR REPORT NEGATIVE 48HOUR REPORT NEGATIVE 72HOUR REPORT NEGATIVE M I C R O B I O L O G Y R E P O R T FINAL Antimicrobial Susceptibility and Organism Identification Report Specimen Number : [id number] Requested : 01/01/18 Specimen Source : BLOOD Collected : 01/01/18 21:34 [facility] : Emergency Room Received : 01/01/18 21:34 Requesting Physician : beverly Patient/Specimen Tests and Comments Specimen Comments FINAL REPORT: No Growth at 5 Days Tech : Source : BLOOD ID # : [id number] FINAL Report Date : / / : Collected : 01/01/18 21:34 01/07/18.1014.KLS. 01/07/18.1014.KLS.COMPLETE Performed By: #### [id number] #### [facility],[address] [place] [address] EMERGENCY REPORT Observed: 01/01/2018 Status: F Source: [facility] 9:05 PM [facility] REPORT NAME ACCOUNT SEX AGE ADMIT DISCHARGE PT MED. RECORD# NUMBER DATE DATE TYPE COLLETTE KELLY [id number] F 47 01/01/18 01/02/18 3 [id number] ROOM: ER DATE OF : 1970 DICTATING PHYSICIAN: Mohsen Berry HISTORY OF PRESENT ILLNESS: This is a 47-year-old female with a past medical history of end-stage renal disease who presents with concern for hypoxia from the rehab facility. The patient states that she has felt short of breath over the past few days, which has gotten progressively worse. She states that she was dialyzed yesterday successfully without any issues. She denies any fever, chills, cough, abdominal pain, chest pain, nausea, vomiting, or diaphoresis. The patient was recently hospitalized for a peritonitis. She also somewhat recently had a right IJ placed for her dialysis treatments. The patient follows with a oil pit attendant in Dr. Ida Chavez. PAST MEDICAL HISTORY: End-stage renal disease and diabetes. PAST SURGICAL HISTORY: Peritoneal dialysis catheter as well as recent right internal jugular catheter. SOCIAL HISTORY: She denies any drugs or alcohol. She is a previous smoker. PHYSICAL EXAMINATION: The patient appears well and nontoxic. She is hypoxic on arrival at 81% but not in respiratory distress. Normotensive. Head: Normocephalic without signs of trauma. Neck: Supple. Trachea is midline. No lymphadenopathy. Chest: Mild crackles at the bases bilaterally. Heart: S1 and S2 appreciated without murmurs. Abdomen is soft and nontender. Evidence of small midline firmness likely secondary to previous peritoneal dialysis catheter. Lower extremities with 2+ bilateral pitting edema. Neurologic: Alert and oriented x3. Cranial nerves II through XII are intact. Sensory is intact. Psychiatric: Mood and affect are normal. DIAGNOSTIC DATA: Laboratory work shows an anemia at 7.1, which is only mildly decreased from her previous when she was discharged from [facility], which was 7.9. BNP is elevated at 1727. Troponin is mildly elevated at 0.08. Potassium is normal at 4.3. Occult blood stool is negative. ABG shows metabolic alkalosis with hypoxia. Chest x-ray shows bilateral pleural effusions, worse on the left. EMERGENCY DEPARTMENT COURSE AND TREATMENT: Upon arrival, the patient is comfortable but hypoxic at 81%. She was placed on oxygen at 5 liters nasal cannula. She is normotensive and afebrile. Physical examination is remarkable for only bilateral crackles at the bases. No abdominal tenderness. Laboratory work showed a significant anemia. The patient did state that she has a previous history of GI bleeding. Rectal examination was done, which was negative. Chest x-ray shows evidence of bilateral Page 1 of 2 COLLETTE KELLY Emergency Room Report pleural effusions. This is likely the cause of her hypoxia. The patient remained on 4 liters nasal cannula. The patient was tachycardic with new EKG changes showing lateral T-wave inversions. The patient will be transferred to [facility] for further evaluation and likely dialysis. I did discuss with the accepting physician that she has an anemia at 7.1, which is only a 0.8 decrease from her discharge. He did not want transfusion. The patient was cross-matched. It was also discussed that the patient was tachycardic with new EKG changes and hypoxic. I stated that I could not do a CTA at this time and a V/Q scan to evaluate for pulmonary embolism would be skewed due to the pleural effusions. He agreed and stated that they would treat her volume overload and then reevaluate her hypoxia as well as tachycardia. The patient was very anxious about being sent to another facility given that she was getting ready to go home from the rehab facility. She was given 0.5 mg of Ativan, which did help her to relax. The patient was monitored in the department until transport could arrive. The patient was transferred in stable condition. DIAGNOSES: 1. Hypoxia. 2. Volume overload. 3. Chronic anemia. 4. Tachycardia. 5. EKG changes. Dictated By: Mohsen Berry DO 01/02/18 06:29 JOB #: [id number] Transcribed By: armida 01/02/18 08:26 Electronically signed by: E-SIGN: Mohsen Berry D.O. 01/10/18 22:54 Page 2 of 2 COLLETTE KELLY Emergency Room Report CNOV Observed: 12/29/2017 Status: COMPLETED Source: [place] 4:00 PM [facility] REPOSITORY Office Visit (TXCTGL) COLLETTE KELLY ([id number]) 1970 F TRN Date Time Provider Department 12/29/17 4:00 PM [facility]OLOGY [facility] During your visit today, we recorded the following information about you: Temperature Pulse Blood pressure Weight 97.5 degrees 109/minute 140/76 88.9 kg Height 1.727 m Monika Saldana MD 12/29/2017 5:26 PM Signed [facility]ly [facility], [facility] [place] [facility] Transplant Evaluation CC: Patient is a 47 year old female here for transplant candidacy evaluation. Reason for visit: here for evaluation to be a Kidney Transplant recipient. Referred by: Isaías Cai MD [id number] [place] [id number] I will communicate with the referring provider by letter and/or shared electronic medical record. HPI: 47yo W F. BP 140/76 (BP Site: Left Arm, BP Position: Sitting, BP Cuff Size: Regular Adult) Pulse 109 Temp 36.4 ?C (97.5 ?F) Ht 172.7 cm (5' 8) Wt 88.9 kg (196 lb) SpO2 98% BMI 29.80 kg/m? Mrs. Kelly is a 47-year-old lady who came in today to be evaluated as a prekidney candidate She is been diagnosed with diabetes since 25 and has been tightness with end-stage renal disease since April of this year She recently fell and has to be in a sniff and she is trying to recover She said she is able to move around with a walker but generally she is still very weak Her last hemoglobin A1c was 8 before that she wasn't sure what was it Denies any ID or stroke Still smoke despite of all of the medical condition She is always swollen She is not on blood thinner Barely can walk a block as of the moment Living donor possible She makes urine 2 bouts of cellulitis on the anterior abdominal wall that needed drainage PAOD (TIA non-embolic, CVA non-embolic, amputation, carotid artery stenosis, abnormal PVRs, claudication history, decreased pulses, etc.):No Stroke: NO Claudication: NO Carotid Artery Stenosis: NO Malignancy (including skin cancer): No Hypercoagulable (history of DVT/PE, miscarriages, prior use of anticoagulation, etc.):No Prior transplant: No CKD: Hemodialysis, Start date: 04/2017 Living Donors: No Residual UO: 1l/d DM: Yes Diagnosed at age 23, Type 2, Therapies: insulin injections (Insulin start date: 2005) and Blood glucose monitorin/day ? PAST MEDICAL HISTORY Diagnosis Date - Anxiety - Cellulitis - Depression - Diabetes mellitus (HCC) - ESRD (end stage renal disease) on dialysis ([facility]) 03/2017 Dr. Prieto - Multiple gastric ulcers - Scoliosis - Tobacco use PAST SURGICAL HISTORY Procedure Laterality Date - DRAINAGE OF PILONIDAL CYST - PD CATHETER ANCHOR BELT - REMOVAL OF GALLBLADDER Current Outpatient Prescriptions: cyclobenzaprine (FLEXERIL) 5 mg tablet Take 5 mg by mouth three times daily. hydrOXYzine pamoate (VISTARIL) 50 mg capsule Take 50 mg by mouth four times daily as needed for Anxiety. sertraline (ZOLOFT) 100 mg tablet Take 1 tablet by mouth once daily. insulin glargine (LANTUS U-100 INSULIN) 100 unit/mL injection Inject 5 Units subcutaneously daily at bedtime. pantoprazole DR (PROTONIX) 40 mg tablet Take 40 mg by mouth twice daily. Epoetin Jose (EPOGEN) 20,000 unit/2 mL soln Inject 2 mL subcutaneously once every month. acetaminophen 325 mg cap Take by mouth every 4 hours as needed. gentamicin 0.1% 0.1 % cream HUMALOG KWIKPEN INSULIN 100 unit/mL inpn Sliding Scale:<60 >400 Call MD0-150 0 [id number] 5 [id number] 7 [id number] 10 [id number] 12 [id number] 15 Units sevelamer (RENAGEL) 800 mg tablet Take 800 mg by mouth three times daily with meals. cyclobenzaprine (FLEXERIL) 10 mg tablet Take 1 tablet by mouth three times daily as needed for Muscle Spasm. predniSONE (DELTASONE) 20 mg tablet Take 1 tablet by mouth once daily. (Patient not taking: Reported on 12/10/2017 ) cyclobenzaprine HCl (CYCLOBENZAPRINE ORAL) Take 5 mg by mouth three times daily as needed. cloNIDine HCl (CATAPRES) 0.1 mg tablet 1 tablet four times daily. (Patient not taking: Reported on 12/10/2017 ) amLODIPine (NORVASC) 10 mg tablet 1 tablet once daily. insulin aspart U-100 (NOVOLOG FLEXPEN U-100 INSULIN) 100 unit/mL inpn Inject subcutaneously three times daily with meals. sliding scale docusate sodium (COLACE) 100 mg capsule Take 100 mg by mouth once daily. calcium acetate (PHOSLO) 667 mg capsule [employer] RX tablet No current facility-administered medications for this visit. FAMILY HISTORY Problem Relation Age of Onset - Diabetes Mother - Hypertension Mother - Diabetes Father - Hypertension Father Family Status Relation Status - Mo - Fa - Bro Alive - Bro Alive Social History Marital status: Spouse name: Rich Years of education: Number of children: 3 Occupational History Occupation Employer Comment unemployed Social History Main Topics Smoking status: Current Every Day Smoker Packs/day: 0.00 Years: 20.00 Types: Cigarettes Smokeless tobacco: Never Used Alcohol use: No Other Topics Concern Service No Blood Transfusions Yes Caffeine Concern No Exercise No Pre-transplant testing: Cardiac: 07/22/17 Diagnosis:NORMAL SINUS RHYTHM NORMAL ECG CXR: 12/29/17 Lungs and pleura: ?Small bilateral pleural effusions with associated atelectasis is present. ?Superimposed aspiration/pneumonia cannot be excluded. ?There is no pneumothorax. PAP Test: Patient to update Mammogram: Patient to update Colonoscopy: NA CT ABD/PEL12/29/17 RESULT: ... ?? ? Vascular calcifications: ? Aorta: Severe calcification ? Right - ?Common Iliac Artery: Moderate, predominantly posterior calcification ?External Iliac Artery: Moderate calcification ?Internal Iliac Artery: Severe calcification ?Left - ? Common Iliac Artery: Mild calcific involving proximal and distal portion with central sparing ? External Iliac Artery: Moderate calcification ? Internal Iliac Artery: Severe calcification Sensitizations: Prior transplant: No Blood transfusions: Yes x 9 : Yes x 3 Immunizations: HBV series: Received, 2017 Pneumovax: Received, 2017 Influenza vaccine: Received, 2017 Adry Eagle RN REVIEW OF SYSTEMS GENERAL: No weight loss, (+)malaise or fevers HEENT: Negative for frequent or significant headaches, No changes in hearing or vision, no nose bleeds or other nasal problems NECK: Negative for lumps, goiter, pain and significant neck swelling RESPIRATORY: Negative for cough, hemoptysis, wheezing, CARDIOVASCULAR: Negative for chest pain, (+) leg swelling, GI: No nausea, vomiting, or diarrhea : No history of dysuria, frequency or incontinence SKIN: Negative for lesions, rash, and itching HEMATOLOGY/LYMPHOLOGY: Negative for prolonged bleeding, bruising easily or swollen nodes NEURO: No history of headaches, syncope, PHYSICAL EXAMINATION: General appearance: Wheelchair-bound, looks very frail Skin: Skin color, texture, turgor normal, no suspicious rashes or lesions Head: Normocephalic, no masses, lesions, tenderness or abnormalities Eyes: Anicteric sclera. Pupils are equally round and reactive to light. Neck: Supple, no adenopathy; thyroid symmetric, normal size, no bruits Lungs: lungs clear to auscultation. Heart: PermCath on the right chest Abdomen: Flabby, Abdomen soft, non-tender. Bowel sounds normal. No masses, organomegaly, drainage healed Extremities: ++ edema up to the knee skin discoloration, clubbing or cyanosis. Good capillary refill. Peripheral pulses: ++ femoral and radial A: ESRD 2 to DM HTN Tobacco use Frail Plan: Mrs. Kelly is a high risk candidate for kidney transplantation as of the present moment. Advantages and disadvantages of transplantation versus dialysis were reviewed. Discussed the operative procedure and potential complications. I addressed issues of post-operative recovery and follow up. Few things I have discussed with her and her a. Since she is already on dialysis she is gaining time, her biggest issue is that she needs to be more mobile and recover more to become better. She needs to complete her SNF and continue to work toward her rehabilitation in order to gain more energy and mobility. b. the importance of compliance and the frequent travel in the early post op period for monitoring. She needs to show that she can take care of her hyperglycemia while she is on dialysis since if she can't control this it will be harder for her once she has transplant C. despite of all her comorbidities she still smoke, I stressed to her how can she take care of herself that despite of all these comorbidities she is still smoking and not afraid to get the complication associated with smoking. I have showed her her CT scan in which there is very patchy calcification of the external iliac artery which will get worse as she continued to smoke. d. We also discussed the transplant procedure and the need for urinary catheter and ureteric stent. I overviewed the issues of delayed graft function, the possible need for dialysis, and the possible need for re-operation during the early postoperative period.. I mentioned other complications including thromboembolic events, cardiac events, and infection. Lastly I discussed the need for immunosuppressive therapy and the risk associated with this treatment. 1. CT scan abdomen and pelvis non contrast - patchy calcification but still doable After discussion disorder things I want her to do, we will end her evaluation Complete her SNF Continue to rehabilitate herself us to continue gaining strength and mobility She needs to completely stop smoking She needs to show better hemoglobin A1c control in the next 6 months Once she does all of this things then she can call us to refer herself and we will open once again open her file to continued evaluation Both patient and agrees with the plan I have spent 60 minutes with pt in which 35 minutes was spent on care and counselling Monika Saldana MD Referring Provider: ISAÍAS CAI [[id number]] Allergies As of Date: 12/29/2017 Noted Allergy Reaction AUGMENTIN (AMOXICILLIN-POT CLAVUL*07/22/2017 11 - Vomiting BACTRIM (SULFAMETHOXAZOLE-TRIMETH*07/22/2017 14 - Other: See Comments Comments: Chest pain BUSPAR (BUSPIRONE HCL) 10/22/2017 14 - Other: See Comments Comments: Night terrors LASIX (FUROSEMIDE) 07/22/2017 7 - Swelling Date Reviewed: 12/29/2017 Reviewed by: Susan Guillory Ma - Fully Assessed Primary Visit Diagnosis:ESRD on dialysis ([facility]) [N18.6, Z99.2] Other Visit Diagnoses:Type 2 diabetes mellitus with diabetic nephropathy, with long-term current use of insulin ([facility]) [E11.21, Z79.4] Tobacco abuse [Z72.0] Frailty [R54] Prescriptions as of 12/29/2017 Sig: CYCLOBENZAPRINE 5 MG TABLET Take 5 mg by mouth three time* HYDROXYZINE PAMOATE 50 MG CAP* Take 50 mg by mouth four time* SERTRALINE 100 MG TABLET Take 1 tablet by mouth once d* INSULIN GLARGINE (U-100) 100 * Inject 5 Units subcutaneously* PANTOPRAZOLE 40 MG TABLET,DEL* Take 40 mg by mouth twice kailash* EPOETIN JOSE 20,000 UNIT/2 ML* Inject 2 mL subcutaneously on* ACETAMINOPHEN 325 MG CAPSULE Take by mouth every 4 hours a* GENTAMICIN 0.1 % TOPICAL CREAM HUMALOG KWIKPEN (U-100) INSUL* Sliding Scale: <60 >400 Call* SEVELAMER HCL 800 MG TABLET Take 800 mg by mouth three ti* CYCLOBENZAPRINE 10 MG TABLET Take 1 tablet by mouth three * PREDNISONE 20 MG TABLET Take 1 tablet by mouth once d* Patient not taking: Reported on 12/10/2017 CYCLOBENZAPRINE ORAL Take 5 mg by mouth three time* CLONIDINE HCL 0.1 MG TABLET 1 tablet four times daily. Patient not taking: Reported on 12/10/2017 AMLODIPINE 10 MG TABLET 1 tablet once daily. INSULIN ASPART U-100 100 UNI* Inject subcutaneously three t* DOCUSATE SODIUM 100 MG CAPSULE Take 100 mg by mouth once kailash* CALCIUM ACETATE 667 MG CAPSULE [employer] RX 1 MG-60 MG-300 MCG* Problem List As Of Date 12/29/2017 Noted Resolved ESRD (end stage renal disease) (HCC) [N18.6] INVALID FOR* More... Multiple gastric ulcers [K25.9] Anxiety [F41.9] Depression [F32.9] Encounter Status:Closed by MONIKA SALDANA MD on 12/29/17 PROGRESS Observed: 12/29/2017 Status: COMPLETED Source: [place] 3:17 PM [facility] [place] REPOSITORY HNO ID: [id number] Author: Monika Saldana Service: (none) Author Type: Physician Type: Progress Notes Filed: 12/29/2017 5:26 PM Note Text: [facility]ly [facility] U[facility] [place] [facility] Transplant Evaluation CC: Patient is a 47 year old female here for transplant candidacy evaluation. Reason for visit: here for evaluation to be a Kidney Transplant recipient. Referred by: Isaías Cai MD [address] [place] [id number] I will communicate with the referring provider by letter and/or shared electronic medical record. HPI: 47yo W F. BP 140/76 (BP Site: Left Arm, BP Position: Sitting, BP Cuff Size: Regular Adult) Pulse 109 Temp 36.4 ?C (97.5 ?F) Ht 172.7 cm (5' 8) Wt 88.9 kg (196 lb) SpO2 98% BMI 29.80 kg/m? Mrs. Kelly is a 47-year-old lady who came in today to be evaluated as a prekidney candidate She is been diagnosed with diabetes since 25 and has been tightness with end-stage renal disease since April of this year She recently fell and has to be in a sniff and she is trying to recover She said she is able to move around with a walker but generally she is still very weak Her last hemoglobin A1c was 8 before that she wasn't sure what was it Denies any ID or stroke Still smoke despite of all of the medical condition She is always swollen She is not on blood thinner Barely can walk a block as of the moment Living donor possible She makes urine 2 bouts of cellulitis on the anterior abdominal wall that needed drainage PAOD (TIA non-embolic, CVA non-embolic, amputation, carotid artery stenosis, abnormal PVRs, claudication history, decreased pulses, etc.):No Stroke: NO Claudication: NO Carotid Artery Stenosis: NO Malignancy (including skin cancer): No Hypercoagulable (history of DVT/PE, miscarriages, prior use of anticoagulation, etc.):No Prior transplant: No CKD: Hemodialysis, Start date: 04/2017 Living Donors: No Residual UO: 1l/d DM: Yes Diagnosed at age 23, Type 2, Therapies: insulin injections (Insulin start date: 2005) and Blood glucose monitorin/day ? PAST MEDICAL HISTORY Diagnosis Date - Anxiety - Cellulitis - Depression - Diabetes mellitus (HCC) - ESRD (end stage renal disease) on dialysis ([facility]) 03/2017 Dr. Prieto - Multiple gastric ulcers - Scoliosis - Tobacco use PAST SURGICAL HISTORY Procedure Laterality Date - DRAINAGE OF PILONIDAL CYST - PD CATHETER ANCHOR BELT - REMOVAL OF GALLBLADDER Current Outpatient Prescriptions: cyclobenzaprine (FLEXERIL) 5 mg tablet Take 5 mg by mouth three times daily. hydrOXYzine pamoate (VISTARIL) 50 mg capsule Take 50 mg by mouth four times daily as needed for Anxiety. sertraline (ZOLOFT) 100 mg tablet Take 1 tablet by mouth once daily. insulin glargine (LANTUS U-100 INSULIN) 100 unit/mL injection Inject 5 Units subcutaneously daily at bedtime. pantoprazole DR (PROTONIX) 40 mg tablet Take 40 mg by mouth twice daily. Epoetin Jose (EPOGEN) 20,000 unit/2 mL soln Inject 2 mL subcutaneously once every month. acetaminophen 325 mg cap Take by mouth every 4 hours as needed. gentamicin 0.1% 0.1 % cream HUMALOG KWIKPEN INSULIN 100 unit/mL inpn Sliding Scale:<60 >400 Call MD0-150 0 [id number] 5 [id number] 7 Mlumv158- 300 10 [id number] 12 [id number] 15 Units sevelamer (RENAGEL) 800 mg tablet Take 800 mg by mouth three times daily with meals. cyclobenzaprine (FLEXERIL) 10 mg tablet Take 1 tablet by mouth three times daily as needed for Muscle Spasm. predniSONE (DELTASONE) 20 mg tablet Take 1 tablet by mouth once daily. (Patient not taking: Reported on 12/10/2017 ) cyclobenzaprine HCl (CYCLOBENZAPRINE ORAL) Take 5 mg by mouth three times daily as needed. cloNIDine HCl (CATAPRES) 0.1 mg tablet 1 tablet four times daily. (Patient not taking: Reported on 12/10/2017 ) amLODIPine (NORVASC) 10 mg tablet 1 tablet once daily. insulin aspart U-100 (NOVOLOG FLEXPEN U-100 INSULIN) 100 unit/mL inpn Inject subcutaneously three times daily with meals. sliding scale docusate sodium (COLACE) 100 mg capsule Take 100 mg by mouth once daily. calcium acetate (PHOSLO) 667 mg capsule [employer] RX tablet No current facility-administered medications for this visit. FAMILY HISTORY Problem Relation Age of Onset - Diabetes Mother - Hypertension Mother - Diabetes Father - Hypertension Father Family Status Relation Status - Mo - Fa - Bro Alive - Bro Alive Social History Marital status: Spouse name: Rich Years of education: Number of children: 3 Occupational History Occupation Employer Comment unemployed Social History Main Topics Smoking status: Current Every Day Smoker Packs/day: 0.00 Years: 20.00 Types: Cigarettes Smokeless tobacco: Never Used Alcohol use: No Other Topics Concern Service No Blood Transfusions Yes Caffeine Concern No Exercise No Pre-transplant testing: Cardiac: 07/22/17 Diagnosis:NORMAL SINUS RHYTHM NORMAL ECG CXR: 12/29/17 Lungs and pleura: ?Small bilateral pleural effusions with associated atelectasis is present. ?Superimposed aspiration/pneumonia cannot be excluded. ?There is no pneumothorax. PAP Test: Patient to update Mammogram: Patient to update Colonoscopy: NA CT ABD/PEL12/29/17 RESULT: ... ?? ? Vascular calcifications: ? Aorta: Severe calcification ? Right - ?Common Iliac Artery: Moderate, predominantly posterior calcification ?External Iliac Artery: Moderate calcification ?Internal Iliac Artery: Severe calcification ?Left - ? Common Iliac Artery: Mild calcific involving proximal and distal portion with central sparing ? External Iliac Artery: Moderate calcification ? Internal Iliac Artery: Severe calcification Sensitizations: Prior transplant: No Blood transfusions: Yes x 9 : Yes x 3 Immunizations: HBV series: Received, 2017 Pneumovax: Received, 2017 Influenza vaccine: Received, 2017 Adry Eagle RN REVIEW OF SYSTEMS GENERAL: No weight loss, (+)malaise or fevers HEENT: Negative for frequent or significant headaches, No changes in hearing or vision, no nose bleeds or other nasal problems NECK: Negative for lumps, goiter, pain and significant neck swelling RESPIRATORY: Negative for cough, hemoptysis, wheezing, CARDIOVASCULAR: Negative for chest pain, (+) leg swelling, GI: No nausea, vomiting, or diarrhea : No history of dysuria, frequency or incontinence SKIN: Negative for lesions, rash, and itching HEMATOLOGY/LYMPHOLOGY: Negative for prolonged bleeding, bruising easily or swollen nodes NEURO: No history of headaches, syncope, PHYSICAL EXAMINATION: General appearance: Wheelchair-bound, looks very frail Skin: Skin color, texture, turgor normal, no suspicious rashes or lesions Head: Normocephalic, no masses, lesions, tenderness or abnormalities Eyes: Anicteric sclera. Pupils are equally round and reactive to light. Neck: Supple, no adenopathy; thyroid symmetric, normal size, no bruits Lungs: lungs clear to auscultation. Heart: PermCath on the right chest Abdomen: Flabby, Abdomen soft, non-tender. Bowel sounds normal. No masses, organomegaly, drainage healed Extremities: ++ edema up to the knee skin discoloration, clubbing or cyanosis. Good capillary refill. Peripheral pulses: ++ femoral and radial A: ESRD 2 to DM HTN Tobacco use Frail Plan: Mrs. Kelly is a high risk candidate for kidney transplantation as of the present moment. Advantages and disadvantages of transplantation versus dialysis were reviewed. Discussed the operative procedure and potential complications. I addressed issues of post-operative recovery and follow up. Few things I have discussed with her and her a. Since she is already on dialysis she is gaining time, her biggest issue is that she needs to be more mobile and recover more to become better. She needs to complete her SNF and continue to work toward her rehabilitation in order to gain more energy and mobility. b. the importance of compliance and the frequent travel in the early post op period for monitoring. She needs to show that she can take care of her hyperglycemia while she is on dialysis since if she can't control this it will be harder for her once she has transplant C. despite of all her comorbidities she still smoke, I stressed to her how can she take care of herself that despite of all these comorbidities she is still smoking and not afraid to get the complication associated with smoking. I have showed her her CT scan in which there is very patchy calcification of the external iliac artery which will get worse as she continued to smoke. d. We also discussed the transplant procedure and the need for urinary catheter and ureteric stent. I overviewed the issues of delayed graft function, the possible need for dialysis, and the possible need for re-operation during the early postoperative period.. I mentioned other complications including thromboembolic events, cardiac events, and infection. Lastly I discussed the need for immunosuppressive therapy and the risk associated with this treatment. 1. CT scan abdomen and pelvis non contrast - patchy calcification but still doable After discussion disorder things I want her to do, we will end her evaluation Complete her SNF Continue to rehabilitate herself us to continue gaining strength and mobility She needs to completely stop smoking She needs to show better hemoglobin A1c control in the next 6 months Once she does all of this things then she can call us to refer herself and we will open once again open her file to continued evaluation Both patient and agrees with the plan I have spent 60 minutes with pt in which 35 minutes was spent on care and counselling Monika Saldana MD CNOV Observed: 12/29/2017 Status: COMPLETED Source: [place] 3:15 PM [facility] REPOSITORY Office Visit (TXCTGL) COLLETTE KELLY ([id number]) 1970 F TRN Date Time Provider Department 12/29/17 3:15 PM NEPHROLOGY TXP CLINIC TXCTGL During your visit today, we recorded the following information about you: Temperature Pulse Blood pressure Weight 97.5 degrees 109/minute 140/76 88.9 kg Height 1.727 m Adry Eagle RN 12/29/2017 4:15 PM Signed This patient was not seen by a oil pit attendant. Referring Provider: ISAÍAS CAI [[id number]] Allergies As of Date: 12/29/2017 Noted Allergy Reaction AUGMENTIN (AMOXICILLIN-POT CLAVUL*07/22/2017 11 - Vomiting BACTRIM (SULFAMETHOXAZOLE-TRIMETH*07/22/2017 14 - Other: See Comments Comments: Chest pain BUSPAR (BUSPIRONE HCL) 10/22/2017 14 - Other: See Comments Comments: Night terrors LASIX (FUROSEMIDE) 07/22/2017 7 - Swelling Date Reviewed: 12/29/2017 Reviewed by: Susan Guillory Ma - Fully Assessed Reason for Visit: Transplant Evaluation [427] Primary Visit Diagnosis:Pre-transplant evaluation for CKD (chronic kidney disease) [Z01.818] Prescriptions as of 12/29/2017 Sig: CYCLOBENZAPRINE 5 MG TABLET Take 5 mg by mouth three time* HYDROXYZINE PAMOATE 50 MG CAP* Take 50 mg by mouth four time* SERTRALINE 100 MG TABLET Take 1 tablet by mouth once d* INSULIN GLARGINE (U-100) 100 * Inject 5 Units subcutaneously* PANTOPRAZOLE 40 MG TABLET,DEL* Take 40 mg by mouth twice kailash* EPOETIN JOSE 20,000 UNIT/2 ML* Inject 2 mL subcutaneously on* ACETAMINOPHEN 325 MG CAPSULE Take by mouth every 4 hours a* GENTAMICIN 0.1 % TOPICAL CREAM HUMALOG KWIKPEN (U-100) INSUL* Sliding Scale: <60 >400 Call* SEVELAMER HCL 800 MG TABLET Take 800 mg by mouth three ti* CYCLOBENZAPRINE 10 MG TABLET Take 1 tablet by mouth three * PREDNISONE 20 MG TABLET Take 1 tablet by mouth once d* Patient not taking: Reported on 12/10/2017 CYCLOBENZAPRINE ORAL Take 5 mg by mouth three time* CLONIDINE HCL 0.1 MG TABLET 1 tablet four times daily. Patient not taking: Reported on 12/10/2017 AMLODIPINE 10 MG TABLET 1 tablet once daily. INSULIN ASPART U-100 100 UNI* Inject subcutaneously three t* DOCUSATE SODIUM 100 MG CAPSULE Take 100 mg by mouth once kailash* CALCIUM ACETATE 667 MG CAPSULE CHAIRMAN AND CEO-ROSLYN RX 1 MG-60 MG-300 MCG* Problem List As Of Date 12/29/2017 Noted Resolved ESRD (end stage renal disease) (HCC) [N18.6] INVALID FOR* More... Multiple gastric ulcers [K25.9] Anxiety [F41.9] Depression [F32.9] Medications Discontinued During This Encounter ALPRAZolam (XANAX) 0.25 mg tablet 0 07/15/2017 12/29/2017 Class: Historical Med Sig: Disc: Reason for discontinue is not on file. Encounter Status:Closed by ADRY EAGLE RN on 12/29/17 PROGRESS Observed: 12/29/2017 Status: COMPLETED Source: [place] 2:48 PM [facility] REPOSITORY HNO ID: [id number] Author: Adry Eagle RN Service: (none) Author Type: (none) Type: Progress Notes Filed: 12/29/2017 4:15 PM Note Text: This patient was not seen by a oil pit attendant. CNSW Observed: 12/29/2017 Status: COMPLETED Source: [place] 1:30 PM [facility] REPOSITORY Social Work (TXCTGL) COLLETTE KELLY ([id number]) 1970 F TRN Date Time Provider Department 12/29/17 1:30 PM KAJAL LOREDO) TXCTGL During your visit today, we recorded the following information about you: DANICA CRUZ 12/29/2017 4:11 PM Signed PSYCHOSOCIAL EVALUATION FOR KIDNEY TRANSPLANT Social Supports: Patients and [id number]. Secondary support will need to be confirmed with family welfare social work professor. Financial Concerns: [employer] and her dialysis center is signing her up for Medicare. Compliance: Uncertain at this time. Per center the patient was just recently switched to hemo dialysis due to infections and noncompliance with managing her PD dialysis. Mental Health: Patient has a history of depression and anxiety. She is on psychiatric medications which are managed by her PCP. She is still experiencing symptoms and will need to be evaluated and cleared by transplant psychiatry as well as show mental health stability. Substance Use: The patient is currently smoking 5 cigarettes a day and understands she will need to quit completely prior to approval by following the MDs recommendations. SIPAT: 24 REFERRAL: Collette Kelly was referred to Social Work for a psychosocial evaluation to establish if she would be a suitable candidate to receive a kidney transplant. She receives dialysis at [facility] on , , . The dialysis center phone number is . The pt does use assistive devices for ambulation when she is going long distances. She will use a wheelchair when needed. Currently she is in a senior living facility, [facility], in order to build up her strength and ambulation. DIALYSIS START DATE: April 2017 This social work psychosocial evaluation was completed with Collette Kelly on December 29, 2017. She was accompanied by her , Mateusz. Race/Gender: White female [place] Citizen: Yes IDENTIFYING INFORMATION/LIVING SITUATION Collette Kelly [id number] [facility] [address] [facility] [id number]. The home is a ranch style home. The patient is in a SNF working on ambulation. There are architectural barriers currently in the home until the patient regains strength. Patient states it takes 1 1/2 hours to get to CC. Collette Kelly has been living in this home since March. Collette Kelly is requires assistance with the following ADL's currently: ambulating and driving. Others in household are patients and 14 year old son. There are 2 licensed drivers in the home and 2 working vehicles. Caregiver responsibilities: 14 years old son will be cared for by family and friends during the patients recovery. Pets in the home: 1 dog. Pet precautions reviewed. TRANSPLANT LODGING PLANS FOR PATIENTS WHO LIVE 2.5 OR MORE HOURS AWAY FROM [facility]: Do you have the financial means to stay in the area for four weeks or more post-transplant? NA COMPREHENSION OF MEDICAL SITUATION Collette Kelly reports that her kidney disease is due to diabetes and taking antibotics. She explains about 7 years ago she had cellulitis and ended up being on antibiotics for a while which gradually harmed her kidneys. She states she has gone through a few hospital admissions earlier this year because she had an infection in her PD catheter. Along with the infection she had pneumonia and had to start dialysis. Collette Kelly was able to recall information that was presented to her today during the kidney transplant educational class. Collette Kelly does understand and, has knowledge of the transplant process, the risks of transplant, and transplant medications. Missed doctor appointments: No issues reported. Missed/shortened/rescheduled dialysis appointments: The recently had to switch to community hemo dialysis because of the OD catheter infection. She states it is going ok except it hurts to sit in the chair because she has developed bed sores from her previous hospital stays. The patient did admit to missing some of Knowledge of medications: Patient explains she knows some of her medications but currently her medical team has been changing them so often she has a difficult time keeping track. aircraft lay out worker empathized with patient and explained why the transplant team asks about knowledge of medications. The patient states once her medication become more regulated she will learn them. Medication Compliance: No issues reported. Prior to her hospital/snf admission the patient was managing her medications herself. Have you ever stopped taking any medication because you lost your insurance you could not afford it? No Have you stopped taking medication because you felt you didn't need it or because of side-effects? No 12/29/2017 Called and spoke with patients dialysis center. [facility], states the patient was just switched to hemodialysis last Friday and the SNF is transporting the patient to and from the center so she can not really speak towards her compliance with hemo dialysis. RN does explain the patient was most likely not compliant with her PD dialysis which is why she needed to switch to hemodialysis. RN explains the patient was most likely not cleaning her PD machine or washing her hands like she should be. Labs reported: phosphorous 5.1, potassium 5.2, hemoglobin 8.1. Do you have any moral, gnosticist, or ethical views against transplants or blood transfusions: No Have you ever been transplanted, evaluated, or listed at another center: No Potential donor: No SUBSTANCE USE/ABUSE Alcohol: Patient states she does not drink. This has always been her pattern and she explains she does not like alcohol. Tobacco: The patient is currently smoking 5 cigarettes a day and explains she is working on quitting. Exposure to second hand smoke: No Illegal substances: No Over the Counter Medications: Tylenol Opioids/Controlled Substances: She states she is on muscle relaxer's and tramadol. She is taking these medications as prescribed. CAGE Questionnaire Have you ever felt you should cut down on your drinking? No Have people annoyed you by criticizing your drinking? No Have you ever felt bad or guilty about your drinking? No Have you ever had a drink first thing in the morning to steady your nerves or to get rid of a hangover (eye neon sign worker)? No LEGAL ENCOUNTERS Currently on probation or parole: No Past or current warrants for arrest: No Substance related legal problems: No Valid drivers license: Yes, but she is not driving currently due to weakness from her hospital stay. History of any legal issues not previously mentioned: No MENTAL HEALTH HISTORY Affect: Flat Alert: Alert Orientation: person, place and time Appearance: Unremarkable/appropriate Cognitive Function: Cognition appears relatively intact Mood: Depressed Euthymic Tearful at times Are you having thoughts that you would be better off , or of hurting yourself in some way? No Current mental health diagnoses / current feelings of anxiety or depression: The patient has a history of depression and has recently been diagnosed with anxiety. She explains she was diagnosed with depression a few years ago and was unable to explains when or why she started feeling depressed. Her anxiety has developed from all her medical complications. She states she is still experiencing symptoms such as uncontrollable crying, hopelessness, sadness, etc. Her primary care physician is managing her mental health diagnoses. Previous mental health diagnoses: NA Psychiatric medication: Yes, Zoloft currently and previously on Celexa. The patient states she has changed psychiatric medications a few times and nothing seemed to help her with her symptoms. Who prescribes: PCP Counseling: No Psychiatric services: No History of suicide attempt(s) or ideation: No History of harming self: No History of harming others: No History of psychiatric hospitalization: No Any family history of mental health diagnoses: No Is a referral to Transplant Psychiatry indicated for further evaluation or screening: Yes, history of depression and anxiety. She is on psychiatric medications that have been changed and she is still experiencing symptoms often. COPING Hobbies/Interests: Patient states she loves animals and has been spending time with the therapy animals at the assisted. Coping strategies: I just sit and cry Patient does not have the appropriate coping strategies to handle the potential stress of a transplant. Yazidi affiliation: Anabaptism Stressors in life: Health issues, managing her life. Ever cope by using a substance: No SOCIAL NARRATIVE Collette Kelly grew up in [place], [place]. She is 47 years of age. Collette Kelly was raised by her biological mom and dad. Her dad worked at [employer] and her mom worked in a factory. Both are . She describes childhood as good. Life Changing Events: No History of Abuse, Assault, or Neglect: No Parental Information: biological Father: Rogelio he from an aneurysm he was in his 70s about 10 years ago. Mother: Earl was 76 years old when she from CHF about 7 years ago. Sibling Information: 2 biological brothers Miguel, patients brother. He is 62 years old, in good health and is currently retired. He is lives near by the patient. Jose M, patients brother. He is 64 years old, he has diabetes but is in overall good health and is currently retired. Relationship History AND Current Status: . The patient has been to Cee for 26 years. This is her first and only marriage. Cee is 47 years old, in good health and owns a [employer]. Pregnancies: 3 pregnancies Children: 3 children Edgar, patients daughter. 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 She works at [employer] and lives with her brother. Ronny, patients son. He is 19 years old and is in good health now. He had a tumor in his arm removed. He works at the family owned [employer]. Prasad, patients son. He is 14 years old and is in good health currently but also had a tumor in his ear which caused a lost of earring in one of his ears. He is in school. EDUCATION Highest Educational Level: High School. Collette Kelly denies academic problems in school. Reading/Comprehension Problems Then or Now: No Computer Literacy: yes Access to Home Internet: yes EMPLOYMENT Service: No Eligible for VA Benefits: NA Work History: She has had a varied of jobs. 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 She worked for a [employer] for some time and then most recently worked for a [employer] which she quit 2 years ago. Current Employment Status: Unemployed Paid Status for Recovery: Unpaid HEALTH INSURANCE/FINANCIAL Medical Insurance: Aultcare and the patient believes her dialysis center signing her up for ESRD medicare Payer of Insurance Premium: Patient Prescription Coverage: Aultcare Insurance Policy [place]: patient and patients . discussed how the cost of Aultcare insurance was increasing and he was unsure how long the business would keep this insurance. Medicare Status: ESRD Medicare reviewed. Disability: 0$ Household Income: $69,000 a year Savings: $6,000 Do you have credit cards that could be used to pay for transplant medications in the event that you have an $800 to $3000 co-pay? Yes Fund Raising: Possibly Pt was given a list of the medications for Kidney TX recipients to learn how her insurance coverage applies. SW informed pt that she must be prepared to cover the copays of her immunosuppression and anti viral medications. Pt was also provided with information about fund raising. CAREGIVER/SUPPORT PLAN Primary Caregiver: Cee Kelly, patients . He is 47 years old and owns a few [employer], [employer], with his father. ? Contact Number: [phone] ? Health Status and Availability of Caregiver: good health, available as much as needed ? Valid News Correspondent's License/Working Vehicle: yes, yes ? Caregiver Substance Use: no ? Caregiver Mental Health: no Secondary Caregiver: Ewa Cosme, patients [id number]. 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 ? Contact Number: [phone] ? Health Status and Availability: good health, per patient she could take time off of work if needed ? Valid News Correspondent's License/Working Vehicle: yes, yes ? Caregiver Substance Use: no ? Caregiver Mental Health: no ADVANCE DIRECTIVES No. Have they been requested? No PSYCHOSOCIAL RISKS ? Adherence to Treatment Protocols: Yes ? Ability to Understand Transplant Center's System of Care: Yes ? Active Psychiatric Diagnosis: Yes The patient is diagnosed with depression and anxiety. She will need to be evaluated and cleared by transplant psychiatry. ? Financial Resources or Support: Yes Secondary support will need to be confirmed with family welfare social work professor. ? Body Image/Scar: No IMPRESSIONS/RECOMMENDATIONS At this time, Collette Kelly is not yet a suitable psychosocial candidate for a kidney transplant until her secondary support is confirmed, she is cleared by transplant psychiatry and shows mental health stability. There are no other psychosocial concerns that could have a negative impact on the successful and sustained outcome of a kidney transplant. The patient will have social supports from her and her [id number]. Secondary support will need to be confirmed with family welfare social work professor. The patient explains she will have other family and friends to assist her as well. The patient has KAYAK insurance and is in the process of applying for ESRD medicare. aircraft lay out worker explained the patient and her family will need to prepare for potential transplant cost and expenses. The patient compliance is unknown at this time. Explained by the dialysis center the patient was just recently switched to hemo dialysis due to infections and noncompliance with managing her PD dialysis. The patient is currently living in a senior living home due to weakness in ambulation from her hospital stays. She will need to demonstrate independence and compliance with dialysis prior to approval. The patient has a history of depression and anxiety. She is on psychiatric medications which are managed by her PCP. She is still experiencing symptoms and will need to be evaluated and cleared by transplant psychiatry as well as show mental health stability. She is currently smoking 5 cigarettes a day and will need to quit completely by following the MDs recommendations. The patients presented as very supportive but also overwhelmed at times. It was clear he is the one holding things together for the patient. The patient was tearful at times and overwhelmed but was still able to get through all assessment questions. If listed, the patient should be scheduled for yearly visits with social work for the following purposes: to review health insurance, changes of caregiver support, changes in financial/employment status, and past or current issues with alcohol or drug use. We reviewed the follow up care sequence, including lab work twice a week and weekly post transplant clinic appointments. We discussed the precautions to take because of being immunosuppressed. Collette Kelly was advised that it is imperative to adhere to the medical regimen and recovery restrictions. Collette Kelly indicated understanding of this information. Collette Kelly had the opportunity to discuss any issues and questions. Patient was given information and brochures about the kidney transplant process and fund raising options. The patient was given the phone number of the transplant family welfare social work professor to address future concerns. ROMAIN Cruz, LEMUEL Transplant Oil Field Rig Builder Referring Provider: ISAÍAS CAI [[id number]] Allergies As of Date: 12/29/2017 Noted Allergy Reaction AUGMENTIN (AMOXICILLIN-POT CLAVUL*07/22/2017 11 - Vomiting BACTRIM (SULFAMETHOXAZOLE-TRIMETH*07/22/2017 14 - Other: See Comments Comments: Chest pain BUSPAR (BUSPIRONE HCL) 10/22/2017 14 - Other: See Comments Comments: Night terrors LASIX (FUROSEMIDE) 07/22/2017 7 - Swelling Date Reviewed: 12/29/2017 Reviewed by: Susan Guillory Ma - Fully Assessed Prescriptions as of 12/29/2017 Sig: CYCLOBENZAPRINE 5 MG TABLET Take 5 mg by mouth three time* HYDROXYZINE PAMOATE 50 MG CAP* Take 50 mg by mouth four time* SERTRALINE 100 MG TABLET Take 1 tablet by mouth once d* INSULIN GLARGINE (U-100) 100 * Inject 5 Units subcutaneously* PANTOPRAZOLE 40 MG TABLET,DEL* Take 40 mg by mouth twice kailash* EPOETIN JOSE 20,000 UNIT/2 ML* Inject 2 mL subcutaneously on* ACETAMINOPHEN 325 MG CAPSULE Take by mouth every 4 hours a* GENTAMICIN 0.1 % TOPICAL CREAM HUMALOG KWIKPEN (U-100) INSUL* Sliding Scale: <60 >400 Call* SEVELAMER HCL 800 MG TABLET Take 800 mg by mouth three ti* CYCLOBENZAPRINE 10 MG TABLET Take 1 tablet by mouth three * PREDNISONE 20 MG TABLET Take 1 tablet by mouth once d* Patient not taking: Reported on 12/10/2017 CYCLOBENZAPRINE ORAL Take 5 mg by mouth three time* CLONIDINE HCL 0.1 MG TABLET 1 tablet four times daily. Patient not taking: Reported on 12/10/2017 AMLODIPINE 10 MG TABLET 1 tablet once daily. INSULIN ASPART U-100 100 UNI* Inject subcutaneously three t* DOCUSATE SODIUM 100 MG CAPSULE Take 100 mg by mouth once kailash* CALCIUM ACETATE 667 MG CAPSULE CHAIRMAN AND CEO-ROSLYN RX 1 MG-60 MG-300 MCG* Problem List As Of Date 12/29/2017 Noted Resolved ESRD (end stage renal disease) (HCC) [N18.6] INVALID FOR* More... Multiple gastric ulcers [K25.9] Anxiety [F41.9] Depression [F32.9] Encounter Status:Closed by KAJAL LOREDO on 12/29/17 PROGRESS Observed: 12/29/2017 Status: COMPLETED Source: [place] 1:22 PM CLINIC MAIN CAMPUS REPOSITORY [facility] ID: [id number] Author: Kajal ([facility]) Facundo Service: (none) Author Type: Oil Field Rig Builder Type: Progress Notes Filed: 12/29/2017 4:11 PM Note Text: PSYCHOSOCIAL EVALUATION FOR KIDNEY TRANSPLANT Social Supports: Patients and [id number]. Secondary support will need to be confirmed with family welfare social work professor. Financial Concerns: LoSo and her dialysis center is signing her up for Medicare. Compliance: Uncertain at this time. Per center the patient was just recently switched to hemo dialysis due to infections and noncompliance with managing her PD dialysis. Mental Health: Patient has a history of depression and anxiety. She is on psychiatric medications which are managed by her PCP. She is still experiencing symptoms and will need to be evaluated and cleared by transplant psychiatry as well as show mental health stability. Substance Use: The patient is currently smoking 5 cigarettes a day and understands she will need to quit completely prior to approval by following the MDs recommendations. SIPAT: 24 REFERRAL: Collette Kelly was referred to Social Work for a psychosocial evaluation to establish if she would be a suitable candidate to receive a kidney transplant. She receives dialysis at [facility] on , . The dialysis center phone number is . The pt does use assistive devices for ambulation when she is going long distances. She will use a wheelchair when needed. Currently she is in a senior living facility, [facility], in order to build up her strength and ambulation. DIALYSIS START DATE: April 2017 This social work psychosocial evaluation was completed with Collette Kelly on December 29, 2017. She was accompanied by her , Mateusz. Race/Gender: White female [place] Citizen: Yes IDENTIFYING INFORMATION/LIVING SITUATION Collette Kelly [id number] [facility] [address] [id number]. The home is a ranch style home. The patient is in a SNF working on ambulation. There are architectural barriers currently in the home until the patient regains strength. Patient states it takes 1 1/2 hours to get to CC. Collette Kelly has been living in this home since March. Collette Kelly is requires assistance with the following ADL's currently: ambulating and driving. Others in household are patients and 14 year old son. There are 2 licensed drivers in the home and 2 working vehicles. Caregiver responsibilities: 14 years old son will be cared for by family and friends during the patients recovery. Pets in the home: 1 dog. Pet precautions reviewed. TRANSPLANT LODGING PLANS FOR PATIENTS WHO LIVE 2.5 OR MORE HOURS AWAY FROM [facility]: Do you have the financial means to stay in the area for four weeks or more post-transplant? NA COMPREHENSION OF MEDICAL SITUATION Collette Kelly reports that her kidney disease is due to diabetes and taking antibotics. She explains about 7 years ago she had cellulitis and ended up being on antibiotics for a while which gradually harmed her kidneys. She states she has gone through a few hospital admissions earlier this year because she had an infection in her PD catheter. Along with the infection she had pneumonia and had to start dialysis. Collette Kelly was able to recall information that was presented to her today during the kidney transplant educational class. Collette Kelly does understand and, has knowledge of the transplant process, the risks of transplant, and transplant medications. Missed doctor appointments: No issues reported. Missed/shortened/rescheduled dialysis appointments: The recently had to switch to community hemo dialysis because of the OD catheter infection. She states it is going ok except it hurts to sit in the chair because she has developed bed sores from her previous hospital stays. The patient did admit to missing some of Knowledge of medications: Patient explains she knows some of her medications but currently her medical team has been changing them so often she has a difficult time keeping track. aircraft lay out worker empathized with patient and explained why the transplant team asks about knowledge of medications. The patient states once her medication become more regulated she will learn them. Medication Compliance: No issues reported. Prior to her hospital/snf admission the patient was managing her medications herself. Have you ever stopped taking any medication because you lost your insurance you could not afford it? No Have you stopped taking medication because you felt you didn't need it or because of side-effects? No 12/29/2017 Called and spoke with patients dialysis center. ABIGAIL [facility], states the patient was just switched to hemodialysis last Friday and the SNF is transporting the patient to and from the center so she can not really speak towards her compliance with hemo dialysis. RN does explain the patient was most likely not compliant with her PD dialysis which is why she needed to switch to hemodialysis. RN explains the patient was most likely not cleaning her PD machine or washing her hands like she should be. Labs reported: phosphorous 5.1, potassium 5.2, hemoglobin 8.1. Do you have any moral, gnosticist, or ethical views against transplants or blood transfusions: No Have you ever been transplanted, evaluated, or listed at another center: No Potential donor: No SUBSTANCE USE/ABUSE Alcohol: Patient states she does not drink. This has always been her pattern and she explains she does not like alcohol. Tobacco: The patient is currently smoking 5 cigarettes a day and explains she is working on quitting. Exposure to second hand smoke: No Illegal substances: No Over the Counter Medications: Tylenol Opioids/Controlled Substances: She states she is on muscle relaxer's and tramadol. She is taking these medications as prescribed. CAGE Questionnaire Have you ever felt you should cut down on your drinking? No Have people annoyed you by criticizing your drinking? No Have you ever felt bad or guilty about your drinking? No Have you ever had a drink first thing in the morning to steady your nerves or to get rid of a hangover (eye neon sign worker)? No LEGAL ENCOUNTERS Currently on probation or parole: No Past or current warrants for arrest: No Substance related legal problems: No Valid drivers license: Yes, but she is not driving currently due to weakness from her hospital stay. History of any legal issues not previously mentioned: No MENTAL HEALTH HISTORY Affect: Flat Alert: Alert Orientation: person, place and time Appearance: Unremarkable/appropriate Cognitive Function: Cognition appears relatively intact Mood: Depressed Euthymic Tearful at times Are you having thoughts that you would be better off , or of hurting yourself in some way? No Current mental health diagnoses / current feelings of anxiety or depression: The patient has a history of depression and has recently been diagnosed with anxiety. She explains she was diagnosed with depression a few years ago and was unable to explains when or why she started feeling depressed. Her anxiety has developed from all her medical complications. She states she is still experiencing symptoms such as uncontrollable crying, hopelessness, sadness, etc. Her primary care physician is managing her mental health diagnoses. Previous mental health diagnoses: NA Psychiatric medication: Yes, Zoloft currently and previously on Celexa. The patient states she has changed psychiatric medications a few times and nothing seemed to help her with her symptoms. Who prescribes: PCP Counseling: No Psychiatric services: No History of suicide attempt(s) or ideation: No History of harming self: No History of harming others: No History of psychiatric hospitalization: No Any family history of mental health diagnoses: No Is a referral to Transplant Psychiatry indicated for further evaluation or screening: Yes, history of depression and anxiety. She is on psychiatric medications that have been changed and she is still experiencing symptoms often. COPING Hobbies/Interests: Patient states she loves animals and has been spending time with the therapy animals at the assisted. Coping strategies: I just sit and cry Patient does not have the appropriate coping strategies to handle the potential stress of a transplant. Yazidi affiliation: Anabaptism Stressors in life: Health issues, managing her life. Ever cope by using a substance: No SOCIAL NARRATIVE Collette Kelly grew up in [place], [place]. She is 47 years of age. Collette Kelly was raised by her biological mom and dad. Her dad worked at [employer] and her mom worked in a factory. Both are . She describes childhood as good. Life Changing Events: No History of Abuse, Assault, or Neglect: No Parental Information: biological Father: Rogelio he from an aneurysm he was in his 70s about 10 years ago. Mother: Earl was 76 years old when she from CHF about 7 years ago. Sibling Information: 2 biological brothers Miguel, patients brother. He is 62 years old, in good health and is currently retired. He is lives near by the patient. Jose M, patients brother. He is 64 years old, he has diabetes but is in overall good health and is currently retired. Relationship History AND Current Status: . The patient has been to Cee for 26 years. This is her first and only marriage. 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 Pregnancies: 3 pregnancies Children: 3 children Edgar, patients daughter. 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 She works at [employer] and lives with her brother. Ronny, patients son. He is 19 years old and is in good health now. He had a tumor in his arm removed. He works at the family owned [employer]. Prasad, patients son. He is 14 years old and is in good health currently but also had a tumor in his ear which caused a lost of earring in one of his ears. He is in school. EDUCATION Highest Educational Level: High School. Collette Kelly denies academic problems in school. Reading/Comprehension Problems Then or Now: No Computer Literacy: yes Access to Home Internet: yes EMPLOYMENT Service: No Eligible for VA Benefits: NA Work History: She has had a varied of jobs. 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 She worked for a [employer] for some time and then most recently worked for a [employer] which she quit 2 years ago. Current Employment Status: Unemployed Paid Status for Recovery: Unpaid HEALTH INSURANCE/FINANCIAL Medical Insurance: LoSo and the patient believes her dialysis center signing her up for ESRD medicare Payer of Insurance Premium: Patient Prescription Coverage: Aultcare Insurance Policy Hodges: patient and patients . discussed how the cost of Aultcare insurance was increasing and he was unsure how long the business would keep this insurance. Medicare Status: ESRD Medicare reviewed. Disability: 0$ Household Income: $69,000 a year Savings: $6,000 Do you have credit cards that could be used to pay for transplant medications in the event that you have an $800 to $3000 co- pay? Yes Fund Raising: Possibly Pt was given a list of the medications for Kidney TX recipients to learn how her insurance coverage applies. SW informed pt that she must be prepared to cover the copays of her immunosuppression and anti viral medications. Pt was also provided with information about fund raising. CAREGIVER/SUPPORT PLAN Primary Caregiver: Cee Kelly, patients . He is 47 years old and owns a few saw [employer], [employer], with his father. ? Contact Number: [phone] ? Health Status and Availability of Caregiver: good health, available as much as needed ? Valid News Correspondent's License/Working Vehicle: yes, yes ? Caregiver Substance Use: no ? Caregiver Mental Health: no Secondary Caregiver: Ewa Cosme, patients [id number]. 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 ? Contact Number: [phone] ? Health Status and Availability: good health, per patient she could take time off of work if needed ? Valid News Correspondent's License/Working Vehicle: yes, yes ? Caregiver Substance Use: no ? Caregiver Mental Health: no ADVANCE DIRECTIVES No. Have they been requested? No PSYCHOSOCIAL RISKS ? Adherence to Treatment Protocols: Yes ? Ability to Understand Transplant Center's System of Care: Yes ? Active Psychiatric Diagnosis: Yes The patient is diagnosed with depression and anxiety. She will need to be evaluated and cleared by transplant psychiatry. ? Financial Resources or Support: Yes Secondary support will need to be confirmed with family welfare social work professor. ? Body Image/Scar: No IMPRESSIONS/RECOMMENDATIONS At this time, Collette Kelly is not yet a suitable psychosocial candidate for a kidney transplant until her secondary support is confirmed, she is cleared by transplant psychiatry and shows mental health stability. There are no other psychosocial concerns that could have a negative impact on the successful and sustained outcome of a kidney transplant. The patient will have social supports from her and her [id number]. Secondary support will need to be confirmed with family welfare social work professor. The patient explains she will have other family and friends to assist her as well. The patient has KAYAK insurance and is in the process of applying for ESRD medicare. aircraft lay out worker explained the patient and her family will need to prepare for potential transplant cost and expenses. The patient compliance is unknown at this time. Explained by the dialysis center the patient was just recently switched to hemo dialysis due to infections and noncompliance with managing her PD dialysis. The patient is currently living in a senior living home due to weakness in ambulation from her hospital stays. She will need to demonstrate independence and compliance with dialysis prior to approval. The patient has a history of depression and anxiety. She is on psychiatric medications which are managed by her PCP. She is still experiencing symptoms and will need to be evaluated and cleared by transplant psychiatry as well as show mental health stability. She is currently smoking 5 cigarettes a day and will need to quit completely by following the MDs recommendations. The patients presented as very supportive but also overwhelmed at times. It was clear he is the one holding things together for the patient. The patient was tearful at times and overwhelmed but was still able to get through all assessment questions. If listed, the patient should be scheduled for yearly visits with social work for the following purposes: to review health insurance, changes of caregiver support, changes in financial/employment status, and past or current issues with alcohol or drug use. We reviewed the follow up care sequence, including lab work twice a week and weekly post transplant clinic appointments. We discussed the precautions to take because of being immunosuppressed. Collette Kelly was advised that it is imperative to adhere to the medical regimen and recovery restrictions. Collette Kelly indicated understanding of this information. Collette Kelly had the opportunity to discuss any issues and questions. Patient was given information and brochures about the kidney transplant process and fund raising options. The patient was given the phone number of the transplant family welfare social work professor to address future concerns. ROMAIN Cruz LISW Transplant Oil Field Rig Builder PROGRESS Observed: 12/29/2017 Status: COMPLETED Source: [place] 12:01 PM [facility] MAIN [place] REPOSITORY [facility] ID: [id number] Author: Sofi Garsia Service: (none) Author Type: Registered Dietitian Type: Progress Notes Filed: 12/29/2017 12:02 PM Note Text: AMBULATORY PATIENT EDUCATION NOTE - Shared Nutrition Group TOPIC: Pre-transplant nutrition evaluation for kidney recipient. PRE-CLASS SCREEN: 1. Have you had any unintentional weight loss in the last 3 months? No 2. Are you having difficulty chewing or swallowing?No 3. Have you had a decrease in your intake or poor appetite greater than 2 weeks? No READINESS TO LEARN: Cognitive Ability: Alert and oriented Motivation To Learn: Eager Family Support: High - Very involved in pt care Instruction Provided To: Patient and Spouse Patient Learns Best By: Multiple Methods Factors Affecting Learning: None Physical Limitations Affecting Learning: None Method of Instruction: Group class LEARNING RESPONSE Patient/Family verbalizes understanding of pre-operative instructions and correct actions to take to follow pre-operative instructions. Nutrition Diagnosis: Food and nutrition related knowledge deficit, related to; lack of prior exposure to information , as evidenced by client has no prior knowledge of need for food and nutrition - related information Body mass index is 29.12 kg/m?. Resting Metabolic Rate: Resting Metabolic Rate: 1519 Educational materials provided: Sodium controlled guidelines and Healthy Plate Patient participated in a pre-transplant shared nutrition group class which reviewed the following nutrition principles: 1. Try to eat 4-5 small meals/snacks daily. 2. Combine a lean protein with a complex carbohydrate for improved energy levels. 3. Limit sodium intake by avoiding frozen meals and take-out food. 4. Consider a liquid supplement if you are unable to tolerate solid foods 5. Choose whole foods whenever possible. If choosing processed foods (boxed, canned, frozen, etc), look for those with no added salt or sugar. If choosing frozen dinners, choose those with less than 600 milligrams sodium. Patient's nutrition status during pretransplant evaluation demonstrates no contra indications for transplantation. Patient is to follow-up with nutrition services after surgery. Referred/Supervised by: Tobin/Harjit Consult Billing Type: Initial Assessment/15 minutes, 3 increment(s), 45 minutes SIGNATURE: Sofi Garsia RD PATIENT NAME: Collette Kelly DATE: December 29, 2017 TIME: 12:01 PM PAGER: [id number] CT ABD/PEL WO IVCON Observed: 12/29/2017 Status: F Source: [place] 11:38 AM [facility] MAIN CAMPUS REPOSITORY * * *Final Report* * * DATE OF EXAM: Dec 29 2017 11:38AM [facility] [id number] - CT ABD/PEL WO IVCON / PROCEDURE REASON: multiple diagnoses * * * * Physician Interpretation * * * * CT ABDOMEN AND PELVIS WITHOUT IV CONTRAST CLINICAL INFORMATION: Pre-op evaluation for possible renal transplant. TECHNIQUE: Abdomen and pelvis without contrast. Contrast: IV contrast: None Oral contrast: None CT Radiation dose: Integrated dose-length product (DLP) for this visit = 253 mGy*cm. COMPARISON: Outside hospital CT kidneys 11/03/2016.. RESULT: ... Vascular calcifications: Aorta: Severe calcification Right - Common Iliac Artery: Moderate, predominantly posterior calcification External Iliac Artery: Moderate calcification Internal Iliac Artery: Severe calcification Left - Common Iliac Artery: Mild calcific involving proximal and distal portion with central sparing External Iliac Artery: Moderate calcification Internal Iliac Artery: Severe calcification Abdomen / Pelvis: Liver: Visualized segments are unremarkable. Biliary: Status post cholecystectomy. Spleen: No splenomegaly. Pancreas: Unremarkable. Adrenals: No mass. Kidneys: Mildly atrophic kidneys. No calculus, hydronephrosis or finding to suggest a cyst or mass in the unenhanced kidney. GI Tract: No bowel dilation. Appendix not visualized. No diverticulosis. Lymph Nodes: No lymphadenopathy. Mesentery/peritoneum: No ascites. Linear metallic foreign body, likely an embolization coil in a mesenteric vessel in the right lower quadrant (3:70) Retroperitoneum: No mass. Vasculature: Diffuse arterial atherosclerotic disease without aneurysm. Pelvis: No mass or ascites. Urinary bladder is unremarkable. Bones/Soft Tissues: Generalized anasarca. Degenerative changes of the thoracolumbar spine. Lower thorax: Bibasilar atelectasis. IMPRESSION: ATHEROSCLEROTIC CALCIFICATION OF THE AORTOILIAC SYSTEM DESCRIBED. Animal Nurse: PSCB Transcribe Date/Time: Dec 29 2017 11:51A Dictated by : PARRISH WATT MD This examination was interpreted and the report reviewed and electronically signed by: KANNAN URIARTE MD on Dec 29 2017 12:39PM EST [id number] PROGRESS Observed: 12/29/2017 Status: COMPLETED Source: [place] 11:22 AM [facility] REPOSITORY [facility] ID: [id number] Author: NABOR Martinez (Ct) Service: Radiology Author Type: Clinical Tube Builder Type: Progress Notes Filed: 12/29/2017 11:33 AM Note Text: Radiology Service Progress Note PATIENT NAME: Collette Kelly DATE OF SERVICE: December 29, 2017 TIME: 11:22 AM PATIENT IDENTITY VERIFICATION COMPLETED USING TWO (2) METHODS: Patient confirmed name verbally and ID band matches.. PATIENT GENDER DATA: Female. status: : No status: NO. PATIENT RELEVANT IMPLANT DATA REVIEWED: Yes RADIOLOGY DEPARTMENT: CT; Exam(s) Completed: Abdomen/Pelvis PERIPHERAL IV DATA: Not applicable SIGNED BY: NABOR Martinez December 29, 2017 11:22 AM PROGRESS Observed: 12/29/2017 Status: COMPLETED Source: [place] 11:15 AM [facility] REPOSITORY [facility] ID: [id number] Author: Jose M Cooper Service: (none) Author Type: (none) Type: Progress Notes Filed: 12/29/2017 11:15 AM Note Text: Radiology Service Progress Note PATIENT NAME: Collette Kelly DATE OF SERVICE: December 29, 2017 TIME: 11:15 AM PATIENT IDENTITY VERIFICATION COMPLETED USING TWO (2) METHODS: Patient confirmed name verbally and Date of . PATIENT GENDER DATA: Female. status: : No status: NO. PATIENT RELEVANT IMPLANT DATA REVIEWED: Yes RADIOLOGY DEPARTMENT: General X-ray: Exam(s) Completed: Chest X-Ray PERIPHERAL IV DATA: Not applicable SIGNED BY: Jose M Cooper December 29, 2017 11:15 AM XR CHEST 2V FRONTAL/LAT Observed: 12/29/2017 Status: F Source: [place] 11:05 AM [facility] REPOSITORY * * *Final Report* * * DATE OF EXAM: Dec 29 2017 11:05AM [facility] [id number] - XR CHEST 2V FRONTAL/LAT / PROCEDURE REASON: Preop examination * * * * Physician Interpretation * * * * EXAMINATION: CHEST RADIOGRAPH (2 VIEW FRONTAL and LATERAL) CLINICAL HISTORY: Preop examination MQ: XC2_5 Comparison: None RESULT: Lines, tubes, and devices: The two right internal jugular venous catheters end at the cavoatrial junction. Lungs and pleura: Small bilateral pleural effusions with associated atelectasis is present. Superimposed aspiration/pneumonia cannot be excluded. There is no pneumothorax. Cardiomediastinal silhouette: The heart is enlarged. The aorta is atherosclerotic. The descending aorta is mildly tortuous. Other: Mild scoliosis is seen in the thoracic spine. Degenerative changes are seen in the thoracic spine. IMPRESSION: Please see body of the report. Animal Nurse: PSCB Transcribe Date/Time: Dec 29 2017 2:32P Dictated by : RASHID LINK MD This examination was interpreted and the report reviewed and electronically signed by: RASHID LINK MD on Dec 29 2017 2:34PM EST [id number] PROGRESS Observed: 12/29/2017 Status: COMPLETED Source: [place] 10:20 AM [facility] [place] REPOSITORY O ID: [id number] Author: Michelle Thornton (Rn) ABIGAIL Alvarez Service: (none) Author Type: Registered Nurse Type: Progress Notes Filed: 12/31/2017 4:08 PM Note Text: PRE-TRANSPLANT PATIENT EDUCATION NOTE Type of Transplant: Kidney Informed Consent for Evaluation signed: Yes Multiple Listing Form signed: Yes READINESS TO LEARN: Cognitive Ability: Alert and oriented Motivation to Learn: Interested Family Support: High - Very involved in pt care Instruction Provided to: Patient and family member Patient Learns Best by: Multiple Methods Factors Affecting Learning: None Physical Limitations Affecting Learning: Limited Mobility Presented in a wheel chair LEARNING RESPONSE: Diagnosis: DM2/HTN Education Topics/Teaching Points: -Discussed living donor evaluation and approval process. -Discussed the evaluation and listing process. -Discussed the different types of donors (KDPI scoring, DCD, High Risk). -Explained EPTS scoring and how it is calculated. -Explained the surgical procedure and potential complications, surgeons, hospital stay at the time of transplant. -Explained lifetime immunosuppression therapy and frequency of blood draws/labs post-op and post-op course of treatment. -Reviewed National and [facility] outcomes from the most recent SRTR center-specific report; a copy of the program summary was given to the patient.? -Explained that if the transplant is not performed at a Medicare-approved transplant center it could affect the ability to have immunosuppressive medications paid under Medicare Part B. ? Supplemental Material: -Pre-Transplant Patient Education Binder -UNOS: Questions AND Answers for Transplant Candidates about Multiple Listing and Waiting Time Transfer -UNOS: Questions AND Answers for Transplant Candidates about Kidney Allocation Policy -Current SRTR Program Summary (Release date: 11/25/2017) -Informed Consent for Transplant Program Participation patient education packet -National Kidney Registry pamphlet: Yes Method of Instruction: Group class instruction Written instruction - handouts Verbal instruction Video Patient/Family Response: Questions were asked and all questions were answered. Follow-Up Plan: Patient instructed to call with any further issues Referral/Recommendation: None Michelle Alvarez RN [facility] Observed: 12/29/2017 Status: COMPLETED Source: [place] 10:15 AM [facility] REPOSITORY Education (DTBAMN) COLLETTE KELLY ([id number]) 1970 F TRN Date Time Provider Department 12/29/17 10:15 AM SOFI GARSIA (CHAZ) DTBAMN Reason for Visit: Patient Education [91] Assessment [673] Progress Notes: Sofi Garsia RD 12/29/2017 12:02 PM Signed AMBULATORY PATIENT EDUCATION NOTE - Shared Nutrition Group TOPIC: Pre-transplant nutrition evaluation for kidney recipient. PRE-CLASS SCREEN: 1. Have you had any unintentional weight loss in the last 3 months? No 2. Are you having difficulty chewing or swallowing?No 3. Have you had a decrease in your intake or poor appetite greater than 2 weeks? No READINESS TO LEARN: Cognitive Ability: Alert and oriented Motivation To Learn: Eager Family Support: High - Very involved in pt care Instruction Provided To: Patient and Spouse Patient Learns Best By: Multiple Methods Factors Affecting Learning: None Physical Limitations Affecting Learning: None Method of Instruction: Group class LEARNING RESPONSE Patient/Family verbalizes understanding of pre-operative instructions and correct actions to take to follow pre-operative instructions. Nutrition Diagnosis: Food and nutrition related knowledge deficit, related to; lack of prior exposure to information , as evidenced by client has no prior knowledge of need for food and nutrition - related information Body mass index is 29.12 kg/m?. Resting Metabolic Rate: Resting Metabolic Rate: 1519 Educational materials provided: Sodium controlled guidelines and Healthy Plate Patient participated in a pre-transplant shared nutrition group class which reviewed the following nutrition principles: 1. Try to eat 4-5 small meals/snacks daily. 2. Combine a lean protein with a complex carbohydrate for improved energy levels. 3. Limit sodium intake by avoiding frozen meals and take-out food. 4. Consider a liquid supplement if you are unable to tolerate solid foods 5. Choose whole foods whenever possible. If choosing processed foods (boxed, canned, frozen, etc), look for those with no added salt or sugar. If choosing frozen dinners, choose those with less than 600 milligrams sodium. Patient's nutrition status during pretransplant evaluation demonstrates no contra indications for transplantation. Patient is to follow-up with nutrition services after surgery. Referred/Supervised by: Tobin/Harjit Consult Billing Type: Initial Assessment/15 minutes, 3 increment(s), 45 minutes SIGNATURE: Sofi Garsia RD PATIENT NAME: Collette Kelly DATE: December 29, 2017 TIME: 12:01 PM PAGER: [phone] Primary Visit Diagnosis:Awaiting organ transplant status [Z76.82] Other Visit Diagnosis:Dietary counseling and surveillance [Z71.3] During your visit today, we recorded the following information about you: Weight Height 84.4 kg 1.702 m Allergies As of Date: 12/29/2017 Noted Allergy Reaction AUGMENTIN (AMOXICILLIN-POT CLAVUL*07/22/2017 11 - Vomiting BACTRIM (SULFAMETHOXAZOLE-TRIMETH*07/22/2017 14 - Other: See Comments Comments: Chest pain BUSPAR (BUSPIRONE HCL) 10/22/2017 14 - Other: See Comments Comments: Night terrors LASIX (FUROSEMIDE) 07/22/2017 7 - Swelling Date Reviewed: 12/29/2017 Reviewed by: Sofi Garsia - Fully Assessed Prescriptions as of 12/29/2017 Sig: CYCLOBENZAPRINE 5 MG TABLET Take 5 mg by mouth three time* HYDROXYZINE PAMOATE 50 MG CAP* Take 50 mg by mouth four time* SERTRALINE 100 MG TABLET Take 1 tablet by mouth once d* INSULIN GLARGINE (U-100) 100 * Inject 5 Units subcutaneously* PANTOPRAZOLE 40 MG TABLET,DEL* Take 40 mg by mouth twice kailash* EPOETIN JOSE 20,000 UNIT/2 ML* Inject 2 mL subcutaneously on* ACETAMINOPHEN 325 MG CAPSULE Take by mouth every 4 hours a* GENTAMICIN 0.1 % TOPICAL CREAM HUMALOG KWIKPEN (U-100) INSUL* Sliding Scale: <60 >400 Call* SEVELAMER HCL 800 MG TABLET Take 800 mg by mouth three ti* CYCLOBENZAPRINE 10 MG TABLET Take 1 tablet by mouth three * PREDNISONE 20 MG TABLET Take 1 tablet by mouth once d* Patient not taking: Reported on 12/10/2017 CYCLOBENZAPRINE ORAL Take 5 mg by mouth three time* CLONIDINE HCL 0.1 MG TABLET 1 tablet four times daily. Patient not taking: Reported on 12/10/2017 AMLODIPINE 10 MG TABLET 1 tablet once daily. 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[employer] RX 1 MG-60 MG-300 MCG* Encounter Status:Closed by SOFI GARSIA on 12/29/17 CORTEZ Observed: 12/29/2017 Status: COMPLETED Source: [place] 7:45 AM [facility] REPOSITORY Office Visit (TXCTGL) COLLETTE KELLY ([id number]) 1970 F [facility] Date Time Provider Department 12/29/17 7:45 AM PRE TX GROUP EDUCATION TXCTGL During your visit today, we recorded the following information about you: Michelle Alvarez RN, RN 12/31/2017 4:08 PM Signed PRE-TRANSPLANT PATIENT EDUCATION NOTE Type of Transplant: Kidney Informed Consent for Evaluation signed: Yes Multiple Listing Form signed: Yes READINESS TO LEARN: Cognitive Ability: Alert and oriented Motivation to Learn: Interested Family Support: High - Very involved in pt care Instruction Provided to: Patient and family member Patient Learns Best by: Multiple Methods Factors Affecting Learning: None Physical Limitations Affecting Learning: Limited Mobility Presented in a wheel chair LEARNING RESPONSE: Diagnosis: DM2/HTN Education Topics/Teaching Points: -Discussed living donor evaluation and approval process. -Discussed the evaluation and listing process. -Discussed the different types of donors (KDPI scoring, DCD, High Risk). -Explained EPTS scoring and how it is calculated. -Explained the surgical procedure and potential complications, surgeons, hospital stay at the time of transplant. -Explained lifetime immunosuppression therapy and frequency of blood draws/labs post-op and post-op course of treatment. -Reviewed National and [facility] outcomes from the most recent SRTR center-specific report; a copy of the program summary was given to the patient.? -Explained that if the transplant is not performed at a Medicare-approved transplant center it could affect the ability to have immunosuppressive medications paid under Medicare Part B. ? Supplemental Material: -Pre-Transplant Patient Education Binder -UNOS: Questions AND Answers for Transplant Candidates about Multiple Listing and Waiting Time Transfer -UNOS: Questions AND Answers for Transplant Candidates about Kidney Allocation Policy -Current SRTR Program Summary (Release date: 11/25/2017) -Informed Consent for Transplant Program Participation patient education packet -National Kidney Registry pamphlet: Yes Method of Instruction: Group class instruction Written instruction - handouts Verbal instruction Video Patient/Family Response: Questions were asked and all questions were answered. Follow-Up Plan: Patient instructed to call with any further issues Referral/Recommendation: None Michelle Alvarez RN Pre-Barometers Calibrator Referring Provider: ISAÍAS CAI [[id number]] Allergies As of Date: 12/29/2017 Noted Allergy Reaction AUGMENTIN (AMOXICILLIN-POT CLAVUL*07/22/2017 11 - Vomiting BACTRIM (SULFAMETHOXAZOLE-TRIMETH*07/22/2017 14 - Other: See Comments Comments: Chest pain BUSPAR (BUSPIRONE HCL) 10/22/2017 14 - Other: See Comments Comments: Night terrors LASIX (FUROSEMIDE) 07/22/2017 7 - Swelling Date Reviewed: 12/29/2017 Reviewed by: Susan Guillory Ma - Fully Assessed Reason for Visit: Patient Education [91] Primary Visit Diagnosis:Pre-transplant evaluation for ESRD (end stage renal disease) [Z01.818] Prescriptions as of 12/29/2017 Sig: CYCLOBENZAPRINE 5 MG TABLET Take 5 mg by mouth three time* HYDROXYZINE PAMOATE 50 MG CAP* Take 50 mg by mouth four time* SERTRALINE 100 MG TABLET Take 1 tablet by mouth once d* INSULIN GLARGINE (U-100) 100 * Inject 5 Units subcutaneously* PANTOPRAZOLE 40 MG TABLET,DEL* Take 40 mg by mouth twice kailash* EPOETIN JOSE 20,000 UNIT/2 ML* Inject 2 mL subcutaneously on* ACETAMINOPHEN 325 MG CAPSULE Take by mouth every 4 hours a* GENTAMICIN 0.1 % TOPICAL CREAM HUMALOG KWIKPEN (U-100) INSUL* Sliding Scale: <60 >400 Call* SEVELAMER HCL 800 MG TABLET Take 800 mg by mouth three ti* CYCLOBENZAPRINE 10 MG TABLET Take 1 tablet by mouth three * PREDNISONE 20 MG TABLET Take 1 tablet by mouth once d* Patient not taking: Reported on 12/10/2017 CYCLOBENZAPRINE ORAL Take 5 mg by mouth three time* CLONIDINE HCL 0.1 MG TABLET 1 tablet four times daily. Patient not taking: Reported on 12/10/2017 AMLODIPINE 10 MG TABLET 1 tablet once daily. 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 Multiple gastric ulcers [K25.9] Anxiety [F41.9] Depression [F32.9] Encounter Status:Closed by MICHELLE ALVAREZ on 12/31/17 CBC Collected: 12/22/2017 Status: F Source: [facility] 5:07 AM [facility] REPOSITORY TYPE CODE TESTS RESULT OUT OF REFERENCE UNITS RANGE LAB WBC(LOINC) 4.50-10.80 10 3/mcL High WBC 15.80 LAB RBCCT(LOINC 4.10-5.30 10 6/mcL ) Low RBC 2.64 LAB HGB(LOINC) 12.0-16.0 G/dL Low Hgb 7.9 LAB HCT(LOINC) 34.0-46.0 % Low Hct 23.4 LAB MCV(LOINC) 80.0-99.0 fL MCV 88.8 LAB MCH(LOINC) 27.0-33.0 pg MCH 30.0 LAB MCHC(LOINC) 32.0-36.0 G/dL MCHC 33.8 LAB RDW(LOINC) 11.5-15.5 % RDW 13.8 LAB PLT(LOINC) 150-450 10 3/mcL Platelet 324 LAB MPV(LOINC) 6.6-10.5 fL MPV 6.8 Performed By: #### CBC, BMP, GFR, DIFF, MORPH #### [address] [address] BMP Collected: 12/22/2017 Status: F Source: [facility] 5:07 AM [facility] REPOSITORY TYPE CODE TESTS RESULT OUT OF REFERENCE UNITS RANGE LAB GLU(LOINC) 70-110 mg/dL Glucose High Level 126 LAB NA(LOINC) 136-145 mEq/L Sodium Level 136 LAB K(LOINC) 3.5-5.0 mEq/L Potassium Level 4.3 LAB CL(LOINC) 98-110 mEq/L Chloride 99 LAB CO2(LOINC) 22-32 mEq/L CO2 22 LAB EBAL(LOINC 4.0-15.0 mEq/L ) Electrolyte Balance 15.0 LAB BUN(LOINC) 8.0-22.0 mg/dL BUN High 38.0 LAB CRE(LOINC) 0.50-1.20 mg/dL Creatinine High Lvl (s) 6.01 LAB BC(LOINC) 10.0-22.0 ratio Low BUN/Creatinine 6.3 Ratio LAB CA(LOINC) 8.4-10.1 mg/dL Low Calcium Lvl 7.5 Performed By: #### CBC, BMP, GFR, DIFF, MORPH #### [address] [address] .GFR Collected: 12/22/2017 Status: F Source: [facility] 5:07 AM [facility] REPOSITORY TYPE CODE TESTS RESULT OUT OF REFERENCE UNITS RANGE LAB GFRAA(LOINC ml/min/1.73 ) sqm GFR 9 Haitian Result Comment: GFR Population mean for , Non- Americans Ages 20-29 = 116 mL/min/1.73 sq.m. Ages 30-39 = 107 mL/min/1.73 sq.m. Ages 40-49 = 99 mL/min/1.73 sq.m. Ages 50-59 = 93 mL/min/1.73 sq.m. Ages 60-69 = 85 mL/min/1.73 sq.m. Ages 70+ = 75 mL/min/1.73 sq.m. Chronic Kidney Disease: Less than 60 mL/min/1.73 square meters End Stage Renal Disease: Less than 15 mL/min/1.73 square meters LAB GFRNO(LOINC) ml/min/1.73sqm GFR Non- 8 Result Comment: GFR Population mean for , Non- Americans Ages 20-29 = 116 mL/min/1.73 sq.m. Ages 30-39 = 107 mL/min/1.73 sq.m. Ages 40-49 = 99 mL/min/1.73 sq.m. Ages 50-59 = 93 mL/min/1.73 sq.m. Ages 60-69 = 85 mL/min/1.73 sq.m. Ages 70+ = 75 mL/min/1.73 sq.m. Chronic Kidney Disease: Less than 60 mL/min/1.73 square meters End Stage Renal Disease: Less than 15 mL/min/1.73 square meters Performed By: #### CBC, BMP, GFR, DIFF, MORPH #### [place] [address] .MANUAL DIFF Collected: 12/22/2017 Status: F Source: [facility] 5:07 AM [facility] REPOSITORY TYPE CODE TESTS RESULT OUT OF REFERENCE UNITS RANGE LAB LIMIT(LOIN C) Cells Counted 100 LAB NEUM(LOINC 50.0-75.0 % ) Neutrophil %, High Manual 80.0 LAB LYMM(LOINC 20.0-40.0 % ) Lymphocyte %, Low Manual 10.0 LAB MONM(LOINC 2.0-13.0 % ) Monocyte %, Manual 6.0 LAB EOM(LOINC) 0.0-6.0 % Eosinophil %, Manual 2.0 LAB BASM(LOINC 0.0-2.5 % ) Basophil %, Manual 0.0 LAB META(LOINC % ) Metamyelocyte 1.0 LAB MYEL(LOINC % ) Myelocyte 1.0 LAB ANEUM(LOIN 2.25-8.10 10 3/mcL C) Neutrophil, Abs High Manual 12.64 LAB ABLYMM(LIZETT 0.90-4.32 10 3/mcL NC) Lymphocyte, Abs Manual 1.58 LAB AMONM(LOIN 0.09-1.40 10 3/mcL C) Monocyte, Abs Manual 0.95 LAB AEOSM(LOIN 0.00-0.65 10 3/mcL C) Eosinophil, Abs Manual 0.32 LAB ABASM(LOIN 0.00-0.27 10 3/mcL C) Basophil, Abs Manual 0.00 Performed By: #### CBC, BMP, GFR, DIFF, MORPH #### [place] [address] .MORPH Collected: 12/22/2017 Status: F Source: [facility] 5:07 AM [facility] REPOSITORY TYPE CODE TESTS RESULT OUT OF REFERENCE UNITS RANGE LAB PLTE(LOINC) Platelet Normal Estimate LAB RBCM(LOINC) RBC Morph Normal Performed By: #### CBC, BMP, GFR, DIFF, MORPH #### [place] [address] VANCR Collected: 12/22/2017 Status: F Source: [facility] 5:07 AM [facility] REPOSITORY TYPE CODE TESTS RESULT OUT OF REFERENCE UNITS RANGE LAB LD021(LOIN C) LDose Vancomycin: See eMAR (random) LAB VANR(LOINC mcg/mL ) Vancomycin Lvl 21.6 (random) Result Comment: No normal reference range reported for random vancomycin testing. Performed By: #### VANCR #### [place] [address] CBC Collected: 12/21/2017 Status: F Source: [facility] 5:52 AM [facility] REPOSITORY TYPE CODE TESTS RESULT OUT OF REFERENCE UNITS RANGE LAB WBC(LOINC) 4.50-10.80 10 3/mcL High WBC 16.70 LAB RBCCT(LOINC 4.10-5.30 10 6/mcL ) Low RBC 2.89 LAB HGB(LOINC) 12.0-16.0 G/dL Low Hgb 8.5 LAB HCT(LOINC) 34.0-46.0 % Low Hct 25.5 LAB MCV(LOINC) 80.0-99.0 fL MCV 88.3 LAB MCH(LOINC) 27.0-33.0 pg MCH 29.4 LAB MCHC(LOINC) 32.0-36.0 G/dL MCHC 33.3 LAB RDW(LOINC) 11.5-15.5 % RDW 13.8 LAB PLT(LOINC) 150-450 10 3/mcL Platelet 356 LAB MPV(LOINC) 6.6-10.5 fL MPV 6.7 Performed By: #### CBC, BMP, GFR, DIFF, MORPH #### [address] [address] BMP Collected: 12/21/2017 Status: F Source: [facility] 5:52 AM [facility] REPOSITORY TYPE CODE TESTS RESULT OUT OF REFERENCE UNITS RANGE LAB GLU(LOINC) 70-110 mg/dL Glucose High Level 122 LAB NA(LOINC) 136-145 mEq/L Low Sodium Level 135 LAB K(LOINC) 3.5-5.0 mEq/L Potassium Level 3.8 LAB CL(LOINC) 98-110 mEq/L Chloride 100 LAB CO2(LOINC) 22-32 mEq/L CO2 25 LAB EBAL(LOINC 4.0-15.0 mEq/L ) Electrolyte Balance 10.0 LAB BUN(LOINC) 8.0-22.0 mg/dL BUN High 29.0 LAB CRE(LOINC) 0.50-1.20 mg/dL Creatinine High Lvl (s) 5.16 LAB BC(LOINC) 10.0-22.0 ratio Low BUN/Creatinine 5.6 Ratio LAB CA(LOINC) 8.4-10.1 mg/dL Low Calcium Lvl 7.3 Performed By: #### CBC, BMP, GFR, DIFF, MORPH #### [address] [address] .GFR Collected: 12/21/2017 Status: F Source: [facility] 5:52 AM [facility] REPOSITORY TYPE CODE TESTS RESULT OUT OF REFERENCE UNITS RANGE LAB GFRAA(LOINC ml/min/1.73 ) sqm GFR 11 Haitian Result Comment: GFR Population mean for , Non- Americans Ages 20-29 = 116 mL/min/1.73 sq.m. Ages 30-39 = 107 mL/min/1.73 sq.m. Ages 40-49 = 99 mL/min/1.73 sq.m. Ages 50-59 = 93 mL/min/1.73 sq.m. Ages 60-69 = 85 mL/min/1.73 sq.m. Ages 70+ = 75 mL/min/1.73 sq.m. Chronic Kidney Disease: Less than 60 mL/min/1.73 square meters End Stage Renal Disease: Less than 15 mL/min/1.73 square meters LAB GFRNO(LOINC) ml/min/1.73sqm GFR Non- 9 Result Comment: GFR Population mean for , Non- Americans Ages 20-29 = 116 mL/min/1.73 sq.m. Ages 30-39 = 107 mL/min/1.73 sq.m. Ages 40-49 = 99 mL/min/1.73 sq.m. Ages 50-59 = 93 mL/min/1.73 sq.m. Ages 60-69 = 85 mL/min/1.73 sq.m. Ages 70+ = 75 mL/min/1.73 sq.m. Chronic Kidney Disease: Less than 60 mL/min/1.73 square meters End Stage Renal Disease: Less than 15 mL/min/1.73 square meters Performed By: #### CBC, BMP, GFR, DIFF, MORPH #### [place] [address] .MANUAL DIFF Collected: 12/21/2017 Status: F Source: [facility] 5:52 AM [facility] REPOSITORY TYPE CODE TESTS RESULT OUT OF REFERENCE UNITS RANGE LAB LIMIT(LOIN C) Cells Counted 100 LAB NEUM(LOINC 50.0-75.0 % ) Neutrophil %, High Manual 85.0 LAB LYMM(LOINC 20.0-40.0 % ) Lymphocyte %, Low Manual 10.0 LAB MONM(LOINC 2.0-13.0 % ) Monocyte %, Manual 2.0 LAB EOM(LOINC) 0.0-6.0 % Eosinophil %, Manual 1.0 LAB BASM(LOINC 0.0-2.5 % ) Basophil %, Manual 0.0 LAB META(LOINC % ) Metamyelocyte 2.0 LAB ANEUM(LOIN 2.25-8.10 10 3/mcL C) Neutrophil, Abs High Manual 14.20 LAB ABLYMM(LIZETT 0.90-4.32 10 3/mcL NC) Lymphocyte, Abs Manual 1.67 LAB AMONM(LOIN 0.09-1.40 10 3/mcL C) Monocyte, Abs Manual 0.33 LAB AEOSM(LOIN 0.00-0.65 10 3/mcL C) Eosinophil, Abs Manual 0.17 LAB ABASM(LOIN 0.00-0.27 10 3/mcL C) Basophil, Abs Manual 0.00 Performed By: #### CBC, BMP, GFR, DIFF, MORPH #### [place] [address] .MORPH Collected: 12/21/2017 Status: F Source: [facility] 5:52 AM [facility] REPOSITORY TYPE CODE TESTS RESULT OUT OF REFERENCE UNITS RANGE LAB PLTE(LOINC) Platelet Normal Estimate LAB RBCM(LOINC) RBC Morph Normal Performed By: #### CBC, BMP, GFR, DIFF, MORPH #### [place] [address] UA Collected: 12/20/2017 Status: F Source: [facility] 5:57 AM [facility] REPOSITORY TYPE CODE TESTS RESULT OUT OF RANGE REFERENCE UNITS LAB SPCUA(LIZETT NC) UA Specimen Type Void LAB CLRUA(LIZETT NC) UA Color Yellow LAB APPUA(LIZETT Clear NC) UA Appear Clear LAB SGUA(LOIN 1.006-1.029 C) UA Spec Grav 1.020 LAB GLUA(LOIN Negative mg/dL C) UA Glucose Unknown 250 LAB BILUA(LIZETT Neg-Trace NC) UA Bili Negative LAB KETUA(LIZETT Neg-Trace NC) UA Ketones Negative LAB BLDUA(LIZETT Neg-Trace NC) UA Blood Trace LAB PHUA(LOIN 5.0 - 8.0 C) UA pH 7.5 LAB PROUA(LIZETT Negative NC) UA Protein Unknown >=1000 LAB UROUA(LIZETT 0.2-1.0 E.U./dL NC) UA Urobilinogen 0.2 LAB NITUA(LIZETT Negative NC) UA Nitrite Negative LAB LEUUA(LIZETT Negative NC) UA Leuk Est Unknown Small Performed By: #### UA, UAMIC #### [place] [address] UAMIC Collected: 12/20/2017 Status: F Source: [facility] 5:57 AM [facility] REPOSITORY TYPE CODE TESTS RESULT OUT OF RANGE REFERENCE UNITS LAB RBCUA(LOIN 0-2 /hpf C) UA RBC 0-2 LAB WBCUA(LOIN 0-5 /hpf C) UA WBC 3-5 LAB EPIUA(LOIN 0-20 /hpf C) UA Squam Epithelial 5-10 LAB TEPUA(LOIN /hpf C) UA Transitional 0-2 Epithelial LAB AMOUA(LOIN /hpf C) UA Amorphus Trace LAB GLTUA(LOIN /hpf C) UA Glitter Unknown cells 0-2 Performed By: #### UA, UAMIC #### [place] [address] Observed: 12/20/2017 Status: F Source: [facility] 5:57 AM [facility] REPOSITORY . MICRO - Microbiology PROCEDURE: Legionella Urine Ag [*1] SOURCE: Urine BODY SITE: COLLECTED DATE/TIME: 12/20/2017 05:57 EDT RECEIVED DATE/TIME: 12/20/2017 07:20 EDT START DATE/TIME: 12/20/2017 07:20 EDT FREE TEXT SOURCE: FINAL REPORTS Final Report [] Verified Date/Time/Personnel: 12/20/2017 08:06 EDT Presumptive negative for L. pneumophila serogroup 1 antigen in urine, suggesting no recent or current infection. Legionnaire's disease cannot be ruled out since other serogroups and species may also cause disease. Performing Locations *1: This test was performed at: [facility], [address] [place] [address], [address] [place] [address] Performed By: #### COLETTE #### [place] [address] Observed: 12/20/2017 Status: F Source: [facility] 5:57 AM [facility] REPOSITORY . MICRO - Microbiology PROCEDURE: Streptococcus Pneumoniae Urine Antig [^1 *1] SOURCE: Urine BODY SITE: COLLECTED DATE/TIME: 12/20/2017 05:57 EDT RECEIVED DATE/TIME: 12/20/2017 07:20 EDT START DATE/TIME: 12/20/2017 07:20 EDT FREE TEXT SOURCE: FINAL REPORTS Final Report [] Verified Date/Time/Personnel: 12/20/2017 08:06 EDT Presumptive negative for pneumococcal pneumonia, suggesting no current or recent pneumococcal infection. Infection due to Strep pneumoniae cannot be ruled out since the antigen present in the sample may be below the detection limit of the test. Interpretive Data ^1: Streptococcus Pneumoniae Urine Antig This test has not been evaluated on patients taking antibiotics for greater than 24 hours or on patients who have recently completed an antibiotic regimen. The accuracy of this test has not been proven in young children. Performing Locations *1: This test was performed at: [facility], [address] [place] [address], [phone] , [facility] Performed By: #### SPAG #### [address] [address] CBC Collected: 12/20/2017 Status: F Source: [facility] 5:25 AM [facility] REPOSITORY TYPE CODE TESTS RESULT OUT OF REFERENCE UNITS RANGE LAB WBC(LOINC) 4.50-10.80 10 3/mcL High WBC 20.20 LAB RBCCT(LOINC 4.10-5.30 10 6/mcL ) Low RBC 2.76 LAB HGB(LOINC) 12.0-16.0 G/dL Low Hgb 8.1 LAB HCT(LOINC) 34.0-46.0 % Low Hct 24.4 LAB MCV(LOINC) 80.0-99.0 fL MCV 88.4 LAB MCH(LOINC) 27.0-33.0 pg MCH 29.5 LAB MCHC(LOINC) 32.0-36.0 G/dL MCHC 33.3 LAB RDW(LOINC) 11.5-15.5 % RDW 13.8 LAB PLT(LOINC) 150-450 10 3/mcL Platelet 362 LAB MPV(LOINC) 6.6-10.5 fL MPV 6.9 Performed By: #### CBC, ADIFF, ANEU, BMP, GFR #### [address] [address] .AUTO DIFF Collected: 12/20/2017 Status: F [facility] [facility] AM [facility] REPOSITORY TYPE CODE TESTS RESULT OUT OF REFERENCE UNITS RANGE LAB CAITLYN(LOINC) 50.0-75.0 % High Neutrophil % 87.6 LAB LYM(LOINC) 20.0-40.0 % Low Lymphocyte % 6.6 LAB MON(LOINC) 2.0-13.0 % Monocyte % 5.1 LAB EO(LOINC) 0.0-6.0 % Eosinophil % 0.6 LAB BAS(LOINC) 0.0-2.5 % Basophil % 0.1 LAB ABLYM(LOIN 0.90-4.32 10 3/mcL C) Lymphocyte, 1.30 Absolute LAB MAHAD(LOINC 0.09-1.40 10 3/mcL ) Monocyte, 1.00 Absolute LAB AEOS(LOINC 0.00-0.65 10 3/mcL ) Eosinophil, 0.10 Absolute LAB ABAS(LOINC 0.00-0.27 10 3/mcL ) Basophil, 0.00 Absolute Performed By: #### CBC, ADIFF, ANEU, BMP, GFR #### [place] [address] .NEUABS Collected: 12/20/2017 Status: F Source: [facility] 5:25 AM [facility] REPOSITORY TYPE CODE TESTS RESULT OUT OF REFERENCE UNITS RANGE LAB ANEU(LOINC) 2.25-8.10 10 3/mcL High Neutrophil, 17.70 Absolute Performed By: #### CBC, ADIFF, ANEU, BMP, GFR #### [place] [address] BMP Collected: 12/20/2017 Status: F Source: [facility] 5:25 AM [facility] REPOSITORY TYPE CODE TESTS RESULT OUT OF REFERENCE UNITS RANGE LAB GLU(LOINC) 70-110 mg/dL Glucose High Level 127 LAB NA(LOINC) 136-145 mEq/L Low Sodium Level 134 LAB K(LOINC) 3.5-5.0 mEq/L Potassium Level 3.7 LAB CL(LOINC) 98-110 mEq/L Low Chloride 96 LAB CO2(LOINC) 22-32 mEq/L CO2 25 LAB EBAL(LOINC 4.0-15.0 mEq/L ) Electrolyte Balance 13.0 LAB BUN(LOINC) 8.0-22.0 mg/dL BUN High 37.0 LAB CRE(LOINC) 0.50-1.20 mg/dL Creatinine High Lvl (s) 6.41 LAB BC(LOINC) 10.0-22.0 ratio Low BUN/Creatinine 5.8 Ratio LAB CA(LOINC) 8.4-10.1 mg/dL Low Calcium Lvl 7.5 Performed By: #### CBC, ADIFF, ANEU, BMP, GFR #### [place] [address] .GFR Collected: 12/20/2017 Status: F Source: [facility] 5:25 AM [facility] REPOSITORY TYPE CODE TESTS RESULT OUT OF REFERENCE UNITS RANGE LAB GFRAA(LOINC ml/min/1.73 ) sqm GFR 8 Haitian Result Comment: GFR Population mean for , Non- Americans Ages 20-29 = 116 mL/min/1.73 sq.m. Ages 30-39 = 107 mL/min/1.73 sq.m. Ages 40-49 = 99 mL/min/1.73 sq.m. Ages 50-59 = 93 mL/min/1.73 sq.m. Ages 60-69 = 85 mL/min/1.73 sq.m. Ages 70+ = 75 mL/min/1.73 sq.m. Chronic Kidney Disease: Less than 60 mL/min/1.73 square meters End Stage Renal Disease: Less than 15 mL/min/1.73 square meters LAB GFRNO(LOINC) ml/min/1.73sqm GFR Non- 7 Result Comment: GFR Population mean for , Non- Americans Ages 20-29 = 116 mL/min/1.73 sq.m. Ages 30-39 = 107 mL/min/1.73 sq.m. Ages 40-49 = 99 mL/min/1.73 sq.m. Ages 50-59 = 93 mL/min/1.73 sq.m. Ages 60-69 = 85 mL/min/1.73 sq.m. Ages 70+ = 75 mL/min/1.73 sq.m. Chronic Kidney Disease: Less than 60 mL/min/1.73 square meters End Stage Renal Disease: Less than 15 mL/min/1.73 square meters Performed By: #### CBC, ADIFF, ANEU, BMP, GFR #### [address] [address] VANCR Collected: 12/20/2017 Status: F Source: [facility] 5:25 AM [facility] REPOSITORY TYPE CODE TESTS RESULT OUT OF REFERENCE UNITS RANGE LAB LD021(LOIN C) LDose Vancomycin: See eMAR (random) LAB VANR(LOINC mcg/mL ) Vancomycin Lvl 19.9 (random) Result Comment: No normal reference range reported for random vancomycin testing. Performed By: #### VANCR #### [address] [address] HEPAC Collected: 12/19/2017 Status: F Source: [facility] 6:41 PM [facility] REPOSITORY TYPE CODE TESTS RESULT OUT OF REFERENCE UNITS RANGE LAB HBSAG(LOINC Negative ) Hep B Negative Surf Ag LAB HBCM(LOINC) Negative Hep B Negative Core IgM Ab Result Comment: No serological evidence of ACUTE Hepatitis B infection. LAB HCV(LOINC) Negative Negative Hep C Ab LAB HCV1(LOINC) No serological evidence of Hep C Ab Hepatitis C Int infection, although levels of anti-HCV may be undetectable in early infection. LAB HAVM(LOINC) Negative Negative Hep A IgM Ab LAB HAVM1(LOINC) No serological evidence of a Hep A IgM current Hepatitis A Ab Int infection. Performed By: #### HEPAC #### [place] [address] IR TEMPORARY DIALYSIS Observed: 12/19/2017 Status: F Source: [facility] 2:00 PM [facility] REPOSITORY ORIGINAL IR TEMPORARY DIALYSIS CATHETER INSERTION WITH ULTRASOUND AND FLUOROSCOPIC GUIDANCE , 12/19/2017 CLINICAL STATEMENT: The patient requires dialysis access COMPARISON: None PROCEDURE: The procedure was performed with maximal sterile barrier precautions - cap, mask, sterile gown, sterile gloves, a a large sterile sheet, and a chlorhexidine skin prep. The RIGHT internal jugu lar vein was localized with ultrasound guidance. Lidocaine 2% was injected as a local anesthetic. A micropuncture set was used to access the vein. A permanent sonographic image was obtained to document the access site and placement of the needle in the vessel lumen. A Strong wire was advanced through the micropuncture catheter delayed as the EKG was monitored . The vena puncture site in the neck was en larged with with sequentially larger vessel dilators. A 14 Uzbek 15 cm SLX Dual Lumen catheter was utilized as a dialysis catheter. The tip of the catheter was placed in the cavoatrial junction as conf irmed by a Fluoroscopic image. The catheter was sutured in place using 2-0 Ethibond. Each of the catheter lumens was flushed with saline. No immediate complication was observed. The patient tolerated the procedure well. Total Fluoro Time: 90.1 seconds Total air kerma dose: 14.51 mGy. IMPRESSION: Successful temporary RIGHT internal jugular hemodialysis catheter insertion. The procedure was performed by Gaby Wood, Physician Bicycle Mechanic. I concur with the contents of the report. Interpreted By: Glynn Rashid MD Preliminary Report By: Gaby Wood Electronically Signed By: Glynn Rashid MD Dictated Date: 12/19/2017 5:29:57 PM Prelim Date: 12/19/2017 5:35:10 PM Sign Date: 12/19/2017 8:45:31 PM IR TUNNELED PICC Observed: 12/19/2017 Status: F Source: [facility] PLAC[facility] 2:00 PM [facility] REPOSITORY ORIGINAL PROCEDURE: 1. Tunneled PICC line placement with fluoroscopy and ultrasound, 12/19/2017 CLINICAL HISTORY: Patient requires IV access for long-term antibiotic therapy. COMPARISON: None MATERIALS UTILIZED: 6 Uzbek Medcomp tunneled PICC, 26 cm cuff to tip (LOT# [id number]) Probe cover Micropuncture Glue FLUORO: 82.2 seconds AIR KERMA DOSE: 11.77 mGy SITE OF PUNCTURE: Right internal jugular vein PROCEDURE: The procedure, risks, and alternatives, were discussed with the patient and all questions were answered. Written informed consent obtained. Accompanying paperwork was verified for accuracy. Directed his tory and physical exam performed prior to the procedure. Medication reconciliation performed by nursing personnel. Procedure was performed using a cap, sterile gown, sterile gloves, a large sterile shee t, hand hygiene and hospital approved cutaneous antisepsis. The patient was positioned supine on the table and prepped and draped in usual sterile fashion. A critical pause was performed with assisting personnel just prior to the procedure with the patient's benton ntity confirmed using 2 identifiers, confirming site and side. Preliminary ultrasound of the neck demonstrated a widely patent vein and an image was obtained. 10 ml of 2% lidocaine was administered at the puncture site for local anesthesia. A tiny skin incision was made. The vein was cannulated under direct sonographic guidance with a micropuncture set. A wire was advanced into the IVC. The planned tunnel on the chest was anesthetized with 2% lidocaine with epinephrine. A small skin incision was made at the planned entry site. Through this incision, the catheter was tunneled to the initial incision. The venous puncture was dilated and a peel-away sheath placed. The peel-away introducer and wire were removed and the catheter inserted through the peel-away sheath. The peel-away sheath was removed. Final fluoroscopic image demonstrates the catheter tip to be near the cavoatrial junction. Both lumens were aspirated and flushed with saline. Sterile caps were attached to each lumen. The catheter was fixed to the skin with suture. The tiny neck incision was approximated with glue. COMPLICATIONS: None EBL: Minimal PATIENT CONDITION: Stable, unchanged. IMPRESSION: 1. Successful placement of tunneled cuffed PICC line. The procedure was performed by Gaby Wood, Physician Bicycle Mechanic. I concur with the contents of the report. Interpreted By: Glynn Rashid MD Preliminary Report By: Gaby Wood PA Electronically Signed By: Glynn Rashid MD Dictated Date: 12/19/2017 5:53:49 PM Prelim Date: 12/19/2017 6:22:42 PM Sign Date: 12/19/2017 8:45:00 PM PROGRESS Observed: 12/19/2017 Status: COMPLETED Source: [place] 11:27 AM [facility] REPOSITORY HNO ID: [id number] Author: Kannan Narayanan) Tye Service: (none) Author Type: Physician Type: Progress Notes Filed: 12/19/2017 11:27 AM Note Text: Noted. PROGRESS Observed: 12/19/2017 Status: COMPLETED Source: [place] 10:26 AM [facility] REPOSITORY HNO ID: [id number] Author: Tracey Escalante) Adan Service: (none) Author Type: Registered Nurse Type: Progress Notes Filed: 12/19/2017 10:41 AM Note Text: PRIMARY CARE COORDINATION FOLLOW-UP NOTE Provider Action/FYI Please note Patient identified by name and date of . YES Spoke to BENITEZ Jin at [facility] Summary: Pt doesn't have any discharge plan at this time. States she is going be transitioned from peritoneal to hemodialysis. She was still having hallucinations several days ago. Pt is expected to be transferred to [facility] because she is going to be on long ter IV antibiotics. Asked to please call PCC at patient's discharge to SNF, verbalized agreement. Manager Project plan for next outreach: Will follow up at transition from hospital to SNF Signature Tracey Arellano RN December 19, 2017 HEPAC Collected: 12/19/2017 Status: F Source: [facility] 10:16 AM [facility] REPOSITORY TYPE CODE TESTS RESULT OUT OF REFERENCE UNITS RANGE LAB HBSAG(LOINC Negative ) Hep B Negative Surf Ag LAB HBCM(LOINC) Negative Hep B Negative Core IgM Ab Result Comment: No serological evidence of ACUTE Hepatitis B infection. LAB HCV(LOINC) Negative Negative Hep C Ab LAB HCV1(LOINC) No serological evidence of Hep C Ab Hepatitis C Int infection, although levels of anti-HCV may be undetectable in early infection. LAB HAVM(LOINC) Negative Negative Hep A IgM Ab LAB HAVM1(LOINC) No serological evidence of a Hep A IgM current Hepatitis A Ab Int infection. Performed By: #### HEPAC #### [address] [address] CBC Collected: 12/19/2017 Status: F Source: [facility] 7:08 AM [facility] REPOSITORY TYPE CODE TESTS RESULT OUT OF REFERENCE UNITS RANGE LAB WBC(LOINC) 4.50-10.80 10 3/mcL High WBC 27.90 LAB RBCCT(LOINC 4.10-5.30 10 6/mcL ) Low RBC 2.91 LAB HGB(LOINC) 12.0-16.0 G/dL Low Hgb 8.7 LAB HCT(LOINC) 34.0-46.0 % Low Hct 25.8 LAB MCV(LOINC) 80.0-99.0 fL MCV 88.7 LAB MCH(LOINC) 27.0-33.0 pg MCH 29.8 LAB MCHC(LOINC) 32.0-36.0 G/dL MCHC 33.6 LAB RDW(LOINC) 11.5-15.5 % RDW 13.3 LAB PLT(LOINC) 150-450 10 3/mcL Platelet 354 LAB MPV(LOINC) 6.6-10.5 fL MPV 6.9 Performed By: #### CBC, BMP, GFR, DIFF, MORPH #### [address] [address] BMP Collected: 12/19/2017 Status: F Source: [facility] 7:08 AM [facility] REPOSITORY TYPE CODE TESTS RESULT OUT OF REFERENCE UNITS RANGE LAB GLU(LOINC) 70-110 mg/dL Low Glucose Level 58 LAB NA(LOINC) 136-145 mEq/L Low Sodium Level 134 LAB K(LOINC) 3.5-5.0 mEq/L Potassium Level 3.6 LAB CL(LOINC) 98-110 mEq/L Low Chloride 92 LAB CO2(LOINC) 22-32 mEq/L CO2 27 LAB EBAL(LOINC 4.0-15.0 mEq/L ) Electrolyte Balance 15.0 LAB BUN(LOINC) 8.0-22.0 mg/dL BUN High 48.0 LAB CRE(LOINC) 0.50-1.20 mg/dL Creatinine High Lvl (s) 7.51 LAB BC(LOINC) 10.0-22.0 ratio Low BUN/Creatinine 6.4 Ratio LAB CA(LOINC) 8.4-10.1 mg/dL Low Calcium Lvl 7.9 Performed By: #### CBC, BMP, GFR, DIFF, MORPH #### [facility] [address] [place] [address] .GFR Collected: 12/19/2017 Status: F Source: [facility] 7:08 AM [facility] REPOSITORY TYPE CODE TESTS RESULT OUT OF REFERENCE UNITS RANGE LAB GFRAA(LOINC ml/min/1.73 ) sqm GFR 7 Haitian Result Comment: GFR Population mean for , Non- Americans Ages 20-29 = 116 mL/min/1.73 sq.m. Ages 30-39 = 107 mL/min/1.73 sq.m. Ages 40-49 = 99 mL/min/1.73 sq.m. Ages 50-59 = 93 mL/min/1.73 sq.m. Ages 60-69 = 85 mL/min/1.73 sq.m. Ages 70+ = 75 mL/min/1.73 sq.m. Chronic Kidney Disease: Less than 60 mL/min/1.73 square meters End Stage Renal Disease: Less than 15 mL/min/1.73 square meters LAB GFRNO(LOINC) ml/min/1.73sqm GFR Non- 6 Result Comment: GFR Population mean for , Non- Americans Ages 20-29 = 116 mL/min/1.73 sq.m. Ages 30-39 = 107 mL/min/1.73 sq.m. Ages 40-49 = 99 mL/min/1.73 sq.m. Ages 50-59 = 93 mL/min/1.73 sq.m. Ages 60-69 = 85 mL/min/1.73 sq.m. Ages 70+ = 75 mL/min/1.73 sq.m. Chronic Kidney Disease: Less than 60 mL/min/1.73 square meters End Stage Renal Disease: Less than 15 mL/min/1.73 square meters Performed By: #### CBC, BMP, GFR, DIFF, MORPH #### [address] [address] .MANUAL DIFF Collected: 12/19/2017 Status: F Source: [facility] 7:08 AM [facility] REPOSITORY TYPE CODE TESTS RESULT OUT OF REFERENCE UNITS RANGE LAB LIMIT(LOIN C) Cells Counted 100 LAB NEUM(LOINC 50.0-75.0 % ) High Neutrophil %, 93.0 Manual LAB LYMM(LOINC 20.0-40.0 % ) Low Lymphocyte %, 1.0 Manual LAB MONM(LOINC 2.0-13.0 % ) Monocyte %, Manual 2.0 LAB EOM(LOINC) 0.0-6.0 % Eosinophil %, 0.0 Manual LAB BASM(LOINC 0.0-2.5 % ) Basophil %, Manual 0.0 LAB BAND(LOINC 0.0-5.0 % ) Bands 3.0 LAB MYEL(LOINC % ) Myelocyte 1.0 LAB ANEUM(LOIN 2.25-8.10 10 3/mcL C) High Neutrophil, Abs 26.79 Manual LAB ABLYMM(LIZETT 0.90-4.32 10 3/mcL NC) Low Lymphocyte, Abs 0.28 Manual LAB AMONM(LOIN 0.09-1.40 10 3/mcL C) Monocyte, Abs 0.56 Manual LAB AEOSM(LOIN 0.00-0.65 10 3/mcL C) Eosinophil, Abs 0.00 Manual LAB ABASM(LOIN 0.00-0.27 10 3/mcL C) Basophil, Abs 0.00 Manual Performed By: #### CBC, BMP, GFR, DIFF, MORPH #### [address] [address] .MORPH Collected: 12/19/2017 Status: F Source: [facility] 7:08 [facility] REPOSITORY TYPE CODE TESTS RESULT OUT OF REFERENCE UNITS RANGE LAB PLTE(LOINC) Platelet Normal Estimate LAB RBCM(LOINC) RBC Morph Normal Performed By: #### CBC, BMP, GFR, DIFF, MORPH #### [address] [address] CNPTOUTREACH Observed: 12/19/2017 Status: COMPLETED Source: [place] 12:00 AM [facility] REPOSITORY Patient Outreach (FAMPWS) COLLETTE KELLY ([id number]) 1970 F TRN Date Time Provider Department 12/19/17 TRACEY ARELLANO (RN) BERNABEPWS During your visit today, we recorded the following information about you: Tracey Arellano RN 12/19/2017 10:41 AM Signed PRIMARY CARE COORDINATION FOLLOW-UP NOTE Provider Action/FYI Please note Patient identified by name and date of . YES Spoke to BENITEZ Jin at [facility] Summary: Pt doesn't have any discharge plan at this time. States she is going be transitioned from peritoneal to hemodialysis. She was still having hallucinations several days ago. Pt is expected to be transferred to [facility] because she is going to be on long ter IV antibiotics. Asked to please call PCC at patient's discharge to SNF, verbalized agreement. Manager Project plan for next outreach: Will follow up at transition from hospital to SNF Signature Tracey Arellano RN December 19, 2017 Kannan Gamble MD 12/19/2017 11:27 AM Signed Noted. Allergies As of Date: 12/19/2017 Noted Allergy Reaction AUGMENTIN (AMOXICILLIN-POT CLAVUL*07/22/2017 11 - Vomiting BACTRIM (SULFAMETHOXAZOLE-TRIMETH*07/22/2017 14 - Other: See Comments Comments: Chest pain BUSPAR (BUSPIRONE HCL) 10/22/2017 14 - Other: See Comments Comments: Night terrors LASIX (FUROSEMIDE) 07/22/2017 7 - Swelling Date Reviewed: 12/10/2017 Reviewed by: Vanesa Gross Ma - Fully Assessed Reason for Visit: [facility] Follow Up [0040] Prescriptions as of 12/19/2017 Sig: CYCLOBENZAPRINE 5 MG TABLET Take 5 mg by mouth three time* HYDROXYZINE PAMOATE 50 MG CAP* Take 50 mg by mouth four time* SERTRALINE 100 MG TABLET Take 1 tablet by mouth once d* INSULIN GLARGINE (U-100) 100 * Inject 5 Units subcutaneously* PANTOPRAZOLE 40 MG TABLET,DEL* Take 40 mg by mouth twice kailash* EPOETIN JOSE 20,000 UNIT/2 ML* Inject 2 mL subcutaneously on* ACETAMINOPHEN 325 MG CAPSULE Take by mouth every 4 hours a* GENTAMICIN 0.1 % TOPICAL CREAM HUMALOG KWIKPEN (U-100) INSUL* Sliding Scale: <60 >400 Call* SEVELAMER HCL 800 MG TABLET Take 800 mg by mouth three ti* CYCLOBENZAPRINE 10 MG TABLET Take 1 tablet by mouth three * PREDNISONE 20 MG TABLET Take 1 tablet by mouth once d* Patient not taking: Reported on 12/10/2017 CYCLOBENZAPRINE ORAL Take 5 mg by mouth three time* CLONIDINE HCL 0.1 MG TABLET 1 tablet four times daily. Patient not taking: Reported on 12/10/2017 AMLODIPINE 10 MG TABLET 1 tablet once daily. 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 RX 1 MG-60 MG-300 MCG* Problem List As Of Date 12/19/2017 Noted Resolved ESRD (end stage renal disease) (HCC) [N18.6] INVALID FOR* More... Multiple gastric ulcers [K25.9] Anxiety [F41.9] Depression [F32.9] Encounter Status:Closed by TRACEY ARELLANO on 12/19/17 Observed: 12/18/2017 Status: F Source: [facility] 2:53 PM [facility] REPOSITORY . MICRO - Microbiology PROCEDURE: Fungal Culture with Stain if Ind [*1] SOURCE: Catheter Site BODY SITE: COLLECTED DATE/TIME: 12/18/2017 14:53 EDT RECEIVED DATE/TIME: 12/18/2017 17:23 EDT START DATE/TIME: 12/18/2017 17:23 EDT FREE TEXT SOURCE: PERITONEAL DIALYSIS CATHETER TIP FOR C&S, AEROBIC, ANAEROBIC, AND FULGAL CULTURE FINAL REPORTS Final Report [] Verified Date/Time/Personnel: 01/20/2018 13:36 EST Heavy Presumptive Melina albicans No mold isolated in 4 weeks. PRELIMINARY REPORTS Preliminary Report [] Verified Date/Time/Personnel: 12/23/2017 13:15 EST Heavy Presumptive Melina albicans Culture will be held for 4 weeks. Preliminary Report [] Verified Date/Time/Personnel: 12/22/2017 16:06 EST Heavy Yeast Final report to follow. STAINS FUNSM [] Verified Date/Time/Personnel: 12/19/2017 15:12 EDT Fungal elements observed by calcofluor white stain. Performing Locations *1: This test was performed at: [facility], [address] [place] [address], [facility] , [facility] Performed By: #### CFUNG #### [place] [address] BFCT Collected: 12/18/2017 Status: C Source: [facility] 1:46 PM [facility] REPOSITORY TYPE CODE TESTS RESULT OUT OF REFERENCE UNITS RANGE LAB BSORC(LOIN C) Body Dialysate Fluid Source Result Comment: Reference ranges have not been established for this body fluid. The test results must be integrated into the clinical context for interpretation. LAB BCLAR(LOINC) Clarity BF Cloudy LAB BCOLR(LOINC) Color BF Straw LAB BWBC(LOINC) /mm3 WBC BF 2806 LAB BCELL(LOINC) Cells Counted BF 100 LAB BNEU(LOINC) % Neutrophil % BF 87 LAB BLYM(LOINC) % Lymphocyte % BF 4 LAB BMON(LOINC) % Mononuclear cell 3 % BF LAB BEOS(LOINC) % Eosinophil % BF 6 Performed By: #### BFCT #### [place] [address] CBC Collected: 12/18/2017 Status: F Source: [facility] 6:06 AM [facility] REPOSITORY TYPE CODE TESTS RESULT OUT OF REFERENCE UNITS RANGE LAB WBC(LOINC) 4.50-10.80 10 3/mcL High WBC 17.00 LAB RBCCT(LOINC 4.10-5.30 10 6/mcL ) Low RBC 3.17 LAB HGB(LOINC) 12.0-16.0 G/dL Low Hgb 9.5 LAB HCT(LOINC) 34.0-46.0 % Low Hct 27.9 LAB MCV(LOINC) 80.0-99.0 fL MCV 88.2 LAB MCH(LOINC) 27.0-33.0 pg MCH 29.8 LAB MCHC(LOINC) 32.0-36.0 G/dL MCHC 33.8 LAB RDW(LOINC) 11.5-15.5 % RDW 13.5 LAB PLT(LOINC) 150-450 10 3/mcL Platelet 422 LAB MPV(LOINC) 6.6-10.5 fL MPV 7.0 Performed By: #### CBC, ADIFF, ANEU, BMP, TSH, FT4, FT3, GFR, VANCR #### [address] [address] .AUTO DIFF Collected: 12/18/2017 Status: F Source: [facility] 6:06 AM [facility] REPOSITORY TYPE CODE TESTS RESULT OUT OF REFERENCE UNITS RANGE LAB CAITLYN(LOINC) 50.0-75.0 % High Neutrophil % 89.8 LAB LYM(LOINC) 20.0-40.0 % Low Lymphocyte % 5.5 LAB MON(LOINC) 2.0-13.0 % Monocyte % 3.9 LAB EO(LOINC) 0.0-6.0 % Eosinophil % 0.6 LAB BAS(LOINC) 0.0-2.5 % Basophil % 0.2 LAB ABLYM(LOIN 0.90-4.32 10 3/mcL C) Lymphocyte, 0.90 Absolute LAB MAHAD(LOINC 0.09-1.40 10 3/mcL ) Monocyte, 0.70 Absolute LAB AEOS(LOINC 0.00-0.65 10 3/mcL ) Eosinophil, 0.10 Absolute LAB ABAS(LOINC 0.00-0.27 10 3/mcL ) Basophil, 0.00 Absolute Performed By: #### CBC, ADIFF, ANEU, BMP, TSH, FT4, FT3, GFR, VANCR #### [address] [address] .NEUABS Collected: 12/18/2017 Status: F Source: [facility] 6:06 AM [facility] REPOSITORY TYPE CODE TESTS RESULT OUT OF REFERENCE UNITS RANGE LAB ANEU(LOINC) 2.25-8.10 10 3/mcL High Neutrophil, 15.30 Absolute Performed By: #### CBC, ADIFF, ANEU, BMP, TSH, FT4, FT3, GFR, VANCR #### [place] [id number] BMP Collected: 12/18/2017 Status: F Source: [facility] 6:06 AM [facility] REPOSITORY TYPE CODE TESTS RESULT OUT OF REFERENCE UNITS RANGE LAB GLU(LOINC) 70-110 mg/dL Glucose High Level 198 LAB NA(LOINC) 136-145 mEq/L Low Sodium Level 131 LAB K(LOINC) 3.5-5.0 mEq/L Potassium Level 3.7 LAB CL(LOINC) 98-110 mEq/L Low Chloride 89 LAB CO2(LOINC) 22-32 mEq/L CO2 28 LAB EBAL(LOINC 4.0-15.0 mEq/L ) Electrolyte Balance 14.0 LAB BUN(LOINC) 8.0-22.0 mg/dL BUN High 45.0 LAB CRE(LOINC) 0.50-1.20 mg/dL Creatinine High Lvl (s) 7.03 LAB BC(LOINC) 10.0-22.0 ratio Low BUN/Creatinine 6.4 Ratio LAB CA(LOINC) 8.4-10.1 mg/dL Low Calcium Lvl 7.9 Performed By: #### CBC, ADIFF, ANEU, BMP, TSH, FT4, FT3, GFR, VANCR #### [place] [id number] TSH Collected: 12/18/2017 Status: F Source: [facility] 6:06 AM [facility] REPOSITORY TYPE CODE TESTS RESULT OUT OF RANGE REFERENCE UNITS LAB TSH(LOINC) 0.360-3.740 mcIU/mL High TSH 14.300 Result Comment: Please note as of 08/31/16 new pediatric reference intervals were added for this test. Performed By: #### CBC, ADIFF, ANEU, BMP, TSH, FT4, FT3, GFR, VANCR #### [place] [id number] FT4 Collected: 12/18/2017 Status: F Source: [facility] 6:06 AM [facility] REPOSITORY TYPE CODE TESTS RESULT OUT OF RANGE REFERENCE UNITS LAB FT4(LOINC) 0.60-1.70 ng/dL Free T4 0.89 Result Comment: Please note as of 7/15/17 new pediatric reference intervals were added for this test. Performed By: #### CBC, ADIFF, ANEU, BMP, TSH, FT4, FT3, GFR, VANCR #### [facility] [address] [place] [address] FT3 Collected: 12/18/2017 Status: F Source: [facility] 6:06 AM [facility] REPOSITORY TYPE CODE TESTS RESULT OUT OF RANGE REFERENCE UNITS LAB FT3(LOINC) 2.30-4.20 pg/mL Low Free T3 0.97 Result Comment: Please note as of 08/31/16 new pediatric reference intervals were added for this test. Performed By: #### CBC, ADIFF, ANEU, BMP, TSH, FT4, FT3, GFR, VANCR #### [address] [address] .GFR Collected: 12/18/2017 Status: F Source: [facility] 6:06 AM [facility] REPOSITORY TYPE CODE TESTS RESULT OUT OF REFERENCE UNITS RANGE LAB GFRAA(LOINC ml/min/1.73 ) sqm GFR 8 Haitian Result Comment: GFR Population mean for , Non- Americans Ages 20-29 = 116 mL/min/1.73 sq.m. Ages 30-39 = 107 mL/min/1.73 sq.m. Ages 40-49 = 99 mL/min/1.73 sq.m. Ages 50-59 = 93 mL/min/1.73 sq.m. Ages 60-69 = 85 mL/min/1.73 sq.m. Ages 70+ = 75 mL/min/1.73 sq.m. Chronic Kidney Disease: Less than 60 mL/min/1.73 square meters End Stage Renal Disease: Less than 15 mL/min/1.73 square meters LAB GFRNO(LOINC) ml/min/1.73sqm GFR Non- 6 Result Comment: GFR Population mean for , Non- Americans Ages 20-29 = 116 mL/min/1.73 sq.m. Ages 30-39 = 107 mL/min/1.73 sq.m. Ages 40-49 = 99 mL/min/1.73 sq.m. Ages 50-59 = 93 mL/min/1.73 sq.m. Ages 60-69 = 85 mL/min/1.73 sq.m. Ages 70+ = 75 mL/min/1.73 sq.m. Chronic Kidney Disease: Less than 60 mL/min/1.73 square meters End Stage Renal Disease: Less than 15 mL/min/1.73 square meters Performed By: #### CBC, ADIFF, ANEU, BMP, TSH, FT4, FT3, GFR, VANCR #### [address] [address] VANCR Collected: 12/18/2017 Status: F Source: [facility] 6:06 AM [facility] REPOSITORY TYPE CODE TESTS RESULT OUT OF REFERENCE UNITS RANGE LAB LD021(LOIN C) LDose Vancomycin: See eMAR (random) LAB VANR(LOINC mcg/mL ) Vancomycin Lvl 17.9 (random) Result Comment: No normal reference range reported for random vancomycin testing. Performed By: #### CBC, ADIFF, ANEU, BMP, TSH, FT4, FT3, GFR, VANCR #### [place] [address] CBC Collected: 12/17/2017 Status: F Source: [facility] 4:44 AM [facility] REPOSITORY TYPE CODE TESTS RESULT OUT OF REFERENCE UNITS RANGE LAB WBC(LOINC) 4.50-10.80 10 3/mcL High WBC 14.30 LAB RBCCT(LOINC 4.10-5.30 10 6/mcL ) Low RBC 2.82 LAB HGB(LOINC) 12.0-16.0 G/dL Low Hgb 8.4 LAB HCT(LOINC) 34.0-46.0 % Low Hct 25.0 LAB MCV(LOINC) 80.0-99.0 fL MCV 88.6 LAB MCH(LOINC) 27.0-33.0 pg MCH 29.8 LAB MCHC(LOINC) 32.0-36.0 G/dL MCHC 33.7 LAB RDW(LOINC) 11.5-15.5 % RDW 13.5 LAB PLT(LOINC) 150-450 10 3/mcL Platelet 371 LAB MPV(LOINC) 6.6-10.5 fL MPV 6.8 Performed By: #### CBC, ADIFF, ANEU, MG, BMP, FOL, FT4, GFR, B12 #### [place] [address] .AUTO DIFF Collected: 12/17/2017 Status: F Source: [facility] 4:44 AM [facility] REPOSITORY TYPE CODE TESTS RESULT OUT OF REFERENCE UNITS RANGE LAB CAITLYN(LOINC) 50.0-75.0 % High Neutrophil % 88.3 LAB LYM(LOINC) 20.0-40.0 % Low Lymphocyte % 6.5 LAB MON(LOINC) 2.0-13.0 % Monocyte % 3.8 LAB EO(LOINC) 0.0-6.0 % Eosinophil % 1.2 LAB BAS(LOINC) 0.0-2.5 % Basophil % 0.2 LAB ABLYM(LOIN 0.90-4.32 10 3/mcL C) Lymphocyte, 0.90 Absolute LAB MAHAD(LOINC 0.09-1.40 10 3/mcL ) Monocyte, 0.50 Absolute LAB AEOS(LOINC 0.00-0.65 10 3/mcL ) Eosinophil, 0.20 Absolute LAB ABAS(LOINC 0.00-0.27 10 3/mcL ) Basophil, 0.00 Absolute Performed By: #### CBC, ADIFF, ANEU, MG, BMP, FOL, FT4, GFR, B12 #### [place] [address] .NEUABS Collected: 12/17/2017 Status: F Source: [facility] 4:44 AM [facility] REPOSITORY TYPE CODE TESTS RESULT OUT OF REFERENCE UNITS RANGE LAB ANEU(LOINC) 2.25-8.10 10 3/mcL High Neutrophil, 12.60 Absolute Performed By: #### CBC, ADIFF, ANEU, MG, BMP, FOL, FT4, GFR, B12 #### [place] [address] MG Collected: 12/17/2017 Status: F Source: [facility] 4:44 AM [facility] REPOSITORY TYPE CODE TESTS RESULT OUT OF REFERENCE UNITS RANGE LAB MG(LOINC) 1.6-2.4 mg/dL Magnesium Lvl 2.0 Performed By: #### CBC, ADIFF, ANEU, MG, BMP, FOL, FT4, GFR, B12 #### [place] [address] BMP Collected: 12/17/2017 Status: F Source: [facility] 4:44 AM [facility] REPOSITORY TYPE CODE TESTS RESULT OUT OF REFERENCE UNITS RANGE LAB GLU(LOINC) 70-110 mg/dL Glucose High Level 200 LAB NA(LOINC) 136-145 mEq/L Low Sodium Level 131 LAB K(LOINC) 3.5-5.0 mEq/L Potassium Level 3.8 LAB CL(LOINC) 98-110 mEq/L Low Chloride 90 LAB CO2(LOINC) 22-32 mEq/L CO2 25 LAB EBAL(LOINC 4.0-15.0 mEq/L ) Electrolyte High Balance 16.0 LAB BUN(LOINC) 8.0-22.0 mg/dL BUN High 47.0 LAB CRE(LOINC) 0.50-1.20 mg/dL Creatinine High Lvl (s) 7.25 LAB BC(LOINC) 10.0-22.0 ratio Low BUN/Creatinine 6.5 Ratio LAB CA(LOINC) 8.4-10.1 mg/dL Low Calcium Lvl 7.4 Performed By: #### CBC, ADIFF, ANEU, MG, BMP, FOL, FT4, GFR, B12 #### [place] [address] FOL Collected: 12/17/2017 Status: F Source: [facility] 4:44 AM [facility] REPOSITORY TYPE CODE TESTS RESULT OUT OF REFERENCE UNITS RANGE LAB FOL(LOINC) 1.1-20.0 ng/mL Folate 15.4 Performed By: #### CBC, ADIFF, ANEU, MG, BMP, FOL, FT4, GFR, B12 #### [place] [address] FT4 Collected: 12/17/2017 Status: F Source: [facility] 4:44 [facility] REPOSITORY TYPE CODE TESTS RESULT OUT OF RANGE REFERENCE UNITS LAB FT4(LOINC) 0.60-1.70 ng/dL Free T4 0.88 Result Comment: Please note as of 08/31/16 new pediatric reference intervals were added for this test. Performed By: #### CBC, ADIFF, ANEU, MG, BMP, FOL, FT4, GFR, B12 #### [place] [address] .GFR Collected: 12/17/2017 Status: F Source: [facility] 4:44 AM [facility] TYPE CODE TESTS RESULT OUT OF REFERENCE UNITS RANGE LAB GFRAA(LOINC ml/min/1.73 ) sqm GFR 7 Haitian Result Comment: GFR Population mean for , Non- Americans Ages 20-29 = 116 mL/min/1.73 sq.m. Ages 30-39 = 107 mL/min/1.73 sq.m. Ages 40-49 = 99 mL/min/1.73 sq.m. Ages 50-59 = 93 mL/min/1.73 sq.m. Ages 60-69 = 85 mL/min/1.73 sq.m. Ages 70+ = 75 mL/min/1.73 sq.m. Chronic Kidney Disease: Less than 60 mL/min/1.73 square meters End Stage Renal Disease: Less than 15 mL/min/1.73 square meters LAB GFRNO(LOINC) ml/min/1.73sqm GFR Non- 6 Result Comment: GFR Population mean for , Non- Americans Ages 20-29 = 116 mL/min/1.73 sq.m. Ages 30-39 = 107 mL/min/1.73 sq.m. Ages 40-49 = 99 mL/min/1.73 sq.m. Ages 50-59 = 93 mL/min/1.73 sq.m. Ages 60-69 = 85 mL/min/1.73 sq.m. Ages 70+ = 75 mL/min/1.73 sq.m. Chronic Kidney Disease: Less than 60 mL/min/1.73 square meters End Stage Renal Disease: Less than 15 mL/min/1.73 square meters Performed By: #### CBC, ADIFF, ANEU, MG, BMP, FOL, FT4, GFR, B12 #### [address] [address] B12 Collected: 12/17/2017 Status: F Source: [facility] 4:44 AM [facility] REPOSITORY TYPE CODE TESTS RESULT OUT OF REFERENCE UNITS RANGE LAB B12(LOINC) 211-911 pg/mL High Vitamin B12 1127 Lvl Performed By: #### CBC, ADIFF, ANEU, MG, BMP, FOL, FT4, GFR, B12 #### [address] [address] Observed: 12/16/2017 Status: F Source: [facility] 10:40 AM [facility] REPOSITORY . MICRO - Microbiology PROCEDURE: Culture Body Fluid with Gram Stain [*1] SOURCE: Peritoneal Fluid BODY SITE: COLLECTED DATE/TIME: 12/16/2017 10:40 EDT RECEIVED DATE/TIME: 12/16/2017 15:45 EDT START DATE/TIME: 12/16/2017 15:46 EDT FREE TEXT SOURCE: FINAL REPORTS Final Report [] Verified Date/Time/Personnel: 12/21/2017 08:04 EST Few Melina albicans From plated and liquid media. PRELIMINARY REPORTS Preliminary Report [] Verified Date/Time/Personnel: 12/20/2017 13:06 EDT Few Melina albicans From plated and liquid media. Preliminary Report [] Verified Date/Time/Personnel: 12/18/2017 12:55 EDT Few Presumptive Melina albicans Final report to follow. Preliminary Report [] Verified Date/Time/Personnel: 12/18/2017 07:36 EDT Few Yeast Final report to follow. Preliminary Report [] Verified Date/Time/Personnel: 12/16/2017 16:59 EDT Culture has been received in lab and is no growth to date. Routine cultures are held for 5 days. STAINS GSANA [] Verified Date/Time/Personnel: 12/19/2017 21:16 EDT Yeast GSAER [] Verified Date/Time/Personnel: 12/17/2017 20:52 EDT Yeast GS [] Verified Date/Time/Personnel: 12/17/2017 01:49 EDT Sedimented 4+ Polymorphonuclear cells 2+ Mononuclear cells No organisms seen. Performing Locations *1: This test was performed at: [facility], [address] [place] [address], [facility] , [facility] Performed By: #### CBF #### [place] [address] CBC Collected: 12/16/2017 Status: F Source: [facility] 5:08 AM [facility] REPOSITORY TYPE CODE TESTS RESULT OUT OF REFERENCE UNITS RANGE LAB WBC(LOINC) 4.50-10.80 10 3/mcL High WBC 14.50 LAB RBCCT(LOINC 4.10-5.30 10 6/mcL ) Low RBC 3.15 LAB HGB(LOINC) 12.0-16.0 G/dL Low Hgb 9.4 LAB HCT(LOINC) 34.0-46.0 % Low Hct 27.9 LAB MCV(LOINC) 80.0-99.0 fL MCV 88.6 LAB MCH(LOINC) 27.0-33.0 pg MCH 30.0 LAB MCHC(LOINC) 32.0-36.0 G/dL MCHC 33.8 LAB RDW(LOINC) 11.5-15.5 % RDW 13.8 LAB PLT(LOINC) 150-450 10 3/mcL Platelet 442 LAB MPV(LOINC) 6.6-10.5 fL MPV 6.9 Performed By: #### CBC, ADIFF, ANEU, VIDH, BMP, TSH, GFR, VANCR, PREGS #### [address] [address] .AUTO DIFF Collected: 12/16/2017 Status: F Source: [facility] 5:08 AM [facility] REPOSITORY TYPE CODE TESTS RESULT OUT OF REFERENCE UNITS RANGE LAB CAITLYN(LOINC) 50.0-75.0 % High Neutrophil % 85.8 LAB LYM(LOINC) 20.0-40.0 % Low Lymphocyte % 7.6 LAB MON(LOINC) 2.0-13.0 % Monocyte % 4.6 LAB EO(LOINC) 0.0-6.0 % Eosinophil % 1.7 LAB BAS(LOINC) 0.0-2.5 % Basophil % 0.3 LAB ABLYM(LOIN 0.90-4.32 10 3/mcL C) Lymphocyte, 1.10 Absolute LAB MAHAD(LOINC 0.09-1.40 10 3/mcL ) Monocyte, 0.70 Absolute LAB AEOS(LOINC 0.00-0.65 10 3/mcL ) Eosinophil, 0.30 Absolute LAB ABAS(LOINC 0.00-0.27 10 3/mcL ) Basophil, 0.00 Absolute Performed By: #### CBC, ADIFF, ANEU, VIDH, BMP, TSH, GFR, VANCR, PREGS #### [address] [address] .NEUABS Collected: 12/16/2017 Status: F Source: [facility] 5:08 AM [facility] REPOSITORY TYPE CODE TESTS RESULT OUT OF REFERENCE UNITS RANGE LAB ANEU(LOINC) 2.25-8.10 10 3/mcL High Neutrophil, 12.50 Absolute Performed By: #### CBC, ADIFF, ANEU, VIDH, BMP, TSH, GFR, VANCR, PREGS #### [place] [address] VIDH Collected: 12/16/2017 Status: F Source: [facility] 5:08 AM [facility] REPOSITORY TYPE CODE TESTS RESULT OUT OF RANGE REFERENCE UNITS LAB VIDH(LOINC) ng/mL Vit. D 18 25-Hydroxy Result Comment: Interpretive Values Based on Total 25(OH)D: Severe Deficiency <20 ng/mL Mild to Moderate Deficiency 20-30 ng/mL Optimum Levels 30-100 ng/mL Toxicity Possible >100 ng/mL Performed By: #### CBC, ADIFF, ANEU, VIDH, BMP, TSH, GFR, VANCR, PREGS #### [place] [address] BMP Collected: 12/16/2017 Status: F Source: [facility] 5:08 AM [facility] REPOSITORY TYPE CODE TESTS RESULT OUT OF REFERENCE UNITS RANGE LAB GLU(LOINC) 70-110 mg/dL Glucose High Level 149 LAB NA(LOINC) 136-145 mEq/L Low Sodium Level 130 LAB K(LOINC) 3.5-5.0 mEq/L Potassium Level 4.3 LAB CL(LOINC) 98-110 mEq/L Low Chloride 89 LAB CO2(LOINC) 22-32 mEq/L CO2 24 LAB EBAL(LOINC 4.0-15.0 mEq/L ) Electrolyte High Balance 17.0 LAB BUN(LOINC) 8.0-22.0 mg/dL BUN High 52.0 LAB CRE(LOINC) 0.50-1.20 mg/dL Creatinine High Lvl (s) 7.84 LAB BC(LOINC) 10.0-22.0 ratio Low BUN/Creatinine 6.6 Ratio LAB CA(LOINC) 8.4-10.1 mg/dL Low Calcium Lvl 7.7 Performed By: #### CBC, ADIFF, ANEU, VIDH, BMP, TSH, GFR, VANCR, PREGS #### [place] [address] TSH Collected: 12/16/2017 Status: F Source: [facility] 5:08 AM [facility] REPOSITORY TYPE CODE TESTS RESULT OUT OF RANGE REFERENCE UNITS LAB TSH(LOINC) 0.360-3.740 mcIU/mL High TSH 16.400 Result Comment: Please note as of 08/31/16 new pediatric reference intervals were added for this test. Performed By: #### CBC, ADIFF, ANEU, VIDH, BMP, TSH, GFR, VANCR, PREGS #### [place] [address] .GFR Collected: 12/16/2017 Status: F Source: [facility] 5:08 AM [facility] REPOSITORY TYPE CODE TESTS RESULT OUT OF REFERENCE UNITS RANGE LAB GFRAA(LOINC ml/min/1.73 ) sqm GFR 7 Haitian Result Comment: GFR Population mean for , Non- Americans Ages 20-29 = 116 mL/min/1.73 sq.m. Ages 30-39 = 107 mL/min/1.73 sq.m. Ages 40-49 = 99 mL/min/1.73 sq.m. Ages 50-59 = 93 mL/min/1.73 sq.m. Ages 60-69 = 85 mL/min/1.73 sq.m. Ages 70+ = 75 mL/min/1.73 sq.m. Chronic Kidney Disease: Less than 60 mL/min/1.73 square meters End Stage Renal Disease: Less than 15 mL/min/1.73 square meters LAB GFRNO(LOINC) ml/min/1.73sqm GFR Non- 6 Result Comment: GFR Population mean for , Non- Americans Ages 20-29 = 116 mL/min/1.73 sq.m. Ages 30-39 = 107 mL/min/1.73 sq.m. Ages 40-49 = 99 mL/min/1.73 sq.m. Ages 50-59 = 93 mL/min/1.73 sq.m. Ages 60-69 = 85 mL/min/1.73 sq.m. Ages 70+ = 75 mL/min/1.73 sq.m. Chronic Kidney Disease: Less than 60 mL/min/1.73 square meters End Stage Renal Disease: Less than 15 mL/min/1.73 square meters Performed By: #### CBC, ADIFF, ANEU, VIDH, BMP, TSH, GFR, VANCR, PREGS #### [address] [address] VANCR Collected: 12/16/2017 Status: F Source: [facility] 5:08 AM [facility] REPOSITORY TYPE CODE TESTS RESULT OUT OF REFERENCE UNITS RANGE LAB LD021(LOIN C) LDose Vancomycin: See eMAR (random) LAB VANR(LOINC mcg/mL ) Vancomycin Lvl 23.0 (random) Result Comment: No normal reference range reported for random vancomycin testing. Performed By: #### CBC, ADIFF, ANEU, VIDH, BMP, TSH, GFR, VANCR, PREGS #### [place] [id number] PREGS Collected: 12/16/2017 Status: F Source: [facility] 5:08 AM [facility] REPOSITORY TYPE CODE TESTS RESULT OUT OF RANGE REFERENCE UNITS LAB PRGS(LOINC ) test Negative (s) LAB PRGSIN(LIZETT NC) Unknown test HCG not (s) int detected. Performed By: #### CBC, ADIFF, ANEU, VIDH, BMP, TSH, GFR, VANCR, PREGS #### [place] [id number] MRI FEMUR W/O Observed: 12/15/2017 Status: F Source: [facility] CONTRAST RIGHT 5:45 PM [facility] REPOSITORY ORIGINAL MRI FEMUR W/O CONTRAST RIGHT incomplete nondiagnostic study CLINICAL STATEMENT: mottled osseous density of bones on X ray , pain in the leg, history of fall, abnormal radiographs COMPARISON: Radiographs 12/14/2017 FINDINGS: The patient is unable to hold still and follow directions for the required duration of the study despite attempting medication. 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 No diagnostic images could be obtained. IMPRESSION: Incomplete nondiagnostic study. Consider further evaluation as clinically warranted and tolerated by the patient which may include bone scan if there is continued concern for skeletal pathology. Interpreted By: Nahun Booker MD Preliminary Report By: Nahun Booker MD Electronically Signed By: Nahun Booker MD Dictated Date: 12/15/2017 11:05:10 PM Prelim Date: 12/15/2017 11:05:10 PM Sign Date: 12/15/2017 11:06:25 PM BFCT Collected: 12/15/2017 Status: C Source: [facility] 11:45 AM [facility] REPOSITORY TYPE CODE TESTS RESULT OUT OF REFERENCE UNITS RANGE LAB BSORC(LOIN C) Body Dialysate Fluid Source Result Comment: Reference ranges have not been established for this body fluid. The test results must be integrated into the clinical context for interpretation. LAB BCLAR(LOINC) Clarity BF Cloudy LAB BCOLR(LOINC) Color BF Straw LAB BWBC(LOINC) /mm3 WBC BF 1785 LAB BNEU(LOINC) % Neutrophil % BF 70 LAB BLYM(LOINC) % Lymphocyte % BF 1 LAB BMON(LOINC) % Mononuclear cell 28 % BF LAB BEOS(LOINC) % Eosinophil % BF 1 LAB BCELL(LOINC) Cells Counted BF 100 Performed By: #### BFCT #### [place] [address] CAION Collected: 12/15/2017 Status: F Source: [facility] 10:52 AM [facility] REPOSITORY Order Comment: add on to blood in lab TYPE CODE TESTS RESULT OUT OF REFERENCE UNITS RANGE LAB CAION(LOINC 1.12-1.32 mmol/L ) Low Calcium 0.94 Ionized Performed By: #### CAION #### [place] [address] VANCR Collected: 12/15/2017 Status: F Source: [facility] 10:52 AM [facility] REPOSITORY TYPE CODE TESTS RESULT OUT OF REFERENCE UNITS RANGE LAB LD021(LOIN C) LDose Vancomycin: See eMAR (random) LAB VANR(LOINC mcg/mL ) Vancomycin Lvl 22.9 (random) Result Comment: No normal reference range reported for random vancomycin testing. Performed By: #### VANCR #### [place] [address] CBC Collected: 12/15/2017 Status: C Source: [facility] 4:38 AM [facility] REPOSITORY TYPE CODE TESTS RESULT OUT OF RANGE REFERENCE UNITS LAB WBC(LOINC) 4.50-10.80 10 3/mcL High WBC 12.80 Result Comment: Capillary or microtainer specimen received. LAB RBCCT(LOINC) 4.10-5.30 10 6/mcL Low RBC 3.10 LAB HGB(LOINC) 12.0-16.0 G/dL Low Hgb 9.2 LAB HCT(LOINC) 34.0-46.0 % Low Hct 27.4 LAB MCV(LOINC) 80.0-99.0 fL MCV 88.5 LAB MCH(LOINC) 27.0-33.0 pg MCH 29.8 LAB MCHC(LOINC) 32.0-36.0 G/dL MCHC 33.7 LAB RDW(LOINC) 11.5-15.5 % RDW 13.6 LAB PLT(LOINC) 150-450 10 3/mcL Platelet 420 LAB MPV(LOINC) 6.6-10.5 fL MPV 7.1 Performed By: #### CBC, ADIFF, ANEU, BMP, GFR #### [address] [address] .AUTO DIFF Collected: 12/15/2017 Status: F Source: [facility] 4:38 [facility] REPOSITORY TYPE CODE TESTS RESULT OUT OF REFERENCE UNITS RANGE LAB CAITLYN(LOINC) 50.0-75.0 % High Neutrophil % 81.7 LAB LYM(LOINC) 20.0-40.0 % Low Lymphocyte % 9.8 LAB MON(LOINC) 2.0-13.0 % Monocyte % 6.2 LAB EO(LOINC) 0.0-6.0 % Eosinophil % 1.7 LAB BAS(LOINC) 0.0-2.5 % Basophil % 0.6 LAB ABLYM(LOIN 0.90-4.32 10 3/mcL C) Lymphocyte, 1.30 Absolute LAB MAHAD(LOINC 0.09-1.40 10 3/mcL ) Monocyte, 0.80 Absolute LAB AEOS(LOINC 0.00-0.65 10 3/mcL ) Eosinophil, 0.20 Absolute LAB ABAS(LOINC 0.00-0.27 10 3/mcL ) Basophil, 0.10 Absolute Performed By: #### CBC, ADIFF, ANEU, BMP, GFR #### [address] [address] .NEUABS Collected: 12/15/2017 Status: F Source: [facility] 4:38 AM [facility] REPOSITORY TYPE CODE TESTS RESULT OUT OF REFERENCE UNITS RANGE LAB ANEU(LOINC) 2.25-8.10 10 3/mcL High Neutrophil, 10.50 Absolute Performed By: #### CBC, ADIFF, ANEU, BMP, GFR #### [address] [address] BMP Collected: 12/15/2017 Status: F Source: [facility] 4:38 AM [facility] REPOSITORY TYPE CODE TESTS RESULT OUT OF REFERENCE UNITS RANGE LAB GLU(LOINC) 70-110 mg/dL Glucose High Level 139 LAB NA(LOINC) 136-145 mEq/L Low Sodium Level 132 LAB K(LOINC) 3.5-5.0 mEq/L Potassium Level 4.9 LAB CL(LOINC) 98-110 mEq/L Low Chloride 92 LAB CO2(LOINC) 22-32 mEq/L Low CO2 21 LAB EBAL(LOINC 4.0-15.0 mEq/L ) Electrolyte High Balance 19.0 LAB BUN(LOINC) 8.0-22.0 mg/dL BUN High 60.0 LAB CRE(LOINC) 0.50-1.20 mg/dL Creatinine High Lvl (s) 8.59 LAB BC(LOINC) 10.0-22.0 ratio Low BUN/Creatinine 7.0 Ratio LAB CA(LOINC) 8.4-10.1 mg/dL Low Calcium Lvl 7.2 Performed By: #### CBC, ADIFF, ANEU, BMP, GFR #### [address] [address] .GFR Collected: 12/15/2017 Status: F Source: [facility] 4:38 AM [facility] REPOSITORY TYPE CODE TESTS RESULT OUT OF REFERENCE UNITS RANGE LAB GFRAA(LOINC ml/min/1.73 ) sqm GFR 6 Haitian Result Comment: GFR Population mean for , Non- Americans Ages 20-29 = 116 mL/min/1.73 sq.m. Ages 30-39 = 107 mL/min/1.73 sq.m. Ages 40-49 = 99 mL/min/1.73 sq.m. Ages 50-59 = 93 mL/min/1.73 sq.m. Ages 60-69 = 85 mL/min/1.73 sq.m. Ages 70+ = 75 mL/min/1.73 sq.m. Chronic Kidney Disease: Less than 60 mL/min/1.73 square meters End Stage Renal Disease: Less than 15 mL/min/1.73 square meters LAB GFRNO(LOINC) ml/min/1.73sqm GFR Non- 5 Result Comment: GFR Population mean for , Non- Americans Ages 20-29 = 116 mL/min/1.73 sq.m. Ages 30-39 = 107 mL/min/1.73 sq.m. Ages 40-49 = 99 mL/min/1.73 sq.m. Ages 50-59 = 93 mL/min/1.73 sq.m. Ages 60-69 = 85 mL/min/1.73 sq.m. Ages 70+ = 75 mL/min/1.73 sq.m. Chronic Kidney Disease: Less than 60 mL/min/1.73 square meters End Stage Renal Disease: Less than 15 mL/min/1.73 square meters Performed By: #### CBC, ADIFF, ANEU, BMP, GFR #### [place] [address] XR TIBIA/FIBULA 2 VIEWS Observed: 12/14/2017 Status: F Source: [facility] 2:30 PM [facility] REPOSITORY ORIGINAL XR TIBIA/FIBULA 2 VIEWS RIGHT CLINICAL STATEMENT: pain in leg, h/o fall COMPARISON: None FINDINGS: Mottled osseous density noted. There is no fracture. No periostitis. Atherosclerosis noted. Soft tissue swelling noted. IMPRESSION: Nonspecific mottled osseous density could relate to osteopenia or an infiltrative bone marrow process. Further evaluation with bone scan or MRI advised. Atherosclerosis Soft tissue swelling Interpreted By: Adelso Tubbs MD Preliminary Report By: Adelso Tubbs MD Electronically Signed By: Adelso Tubbs MD Dictated Date: 12/14/2017 2:41:56 PM Prelim Date: 12/14/2017 2:41:56 PM Sign Date: 12/14/2017 2:43:14 PM XR KNEE THREE VIEWS Observed: 12/14/2017 Status: F Source: [facility] 2:15 PM [facility] REPOSITORY ORIGINAL XR KNEE THREE VIEWS RIGHT CLINICAL STATEMENT: pain COMPARISON: None FINDINGS: Radiograph was centered to include the distal femur. A tibia and fibula series is reported separately. Mottled osseous density noted. There is no fracture. Atherosclerosis seen. Lateral tilt of the patella noted. IMPRESSION: 1. Mottled osseous density could relate to osteopenia or infiltrative process of the bone marrow. Consider MRI or bone scan. 2. No acute osseous abnormality 3. Atherosclerosis Interpreted By: Adelso Tubbs MD Preliminary Report By: Adelso Tubbs MD Electronically Signed By: Adelso Tubbs MD Dictated Date: 12/14/2017 2:40:39 PM Prelim Date: 12/14/2017 2:40:39 PM Sign Date: 12/14/2017 2:41:53 PM XR FEMUR MINIMUM 2 Observed: 12/14/2017 Status: F Source: [facility] VIEWS RIGHT 2:00 PM [facility] REPOS[facility] ORIGINAL XR FEMUR MINIMUM 2 VIEWS RIGHT CLINICAL STATEMENT: pain in rt leg, h/o fall COMPARISON: None FINDINGS: The proximal femur appears intact. There is no periostitis or fracture. There is degenerative change in the RIGHT hip. Femoral morphology places the patient risk for impingement syndrome. [place] led osseous density noted. The distal femur is not included in the [id number]. There is atherosclerosis. IMPRESSION: 1. No acute fracture in the proximal aspect of the RIGHT femur. The distal femur is not included in the [id number]. A knee radiograph series is reported separately. 2. Degenerative changes in the RIGHT hip. Femoral morphology places the patient at risk for impingement syndrome. 3. Mottled osseous appearance could relate to osteopenia or an infiltrative process in the bone marrow. Clinical correlation needed. With further concern, bone scan follow-up may be obtained. Interpreted By: Adelso Tubbs MD Preliminary Report By: Adelso Tubbs MD Electronically Signed By: Adelso Tubbs MD Dictated Date: 12/14/2017 2:36:42 PM Prelim Date: 12/14/2017 2:36:42 PM Sign Date: 12/14/2017 2:40:16 PM VANCR Collected: 12/14/2017 Status: F Source: [facility] 9:48 AM [facility] REPOSIT[facility] TYPE CODE TESTS RESULT OUT OF REFERENCE UNITS RANGE LAB LD021(LOIN C) LDose Vancomycin: See eMAR (random) LAB VANR(LOINC mcg/mL ) Vancomycin Lvl 13.8 (random) Result Comment: No normal reference range reported for random vancomycin testing. Performed By: #### VANCR #### [place] [address] RESPID Collected: 12/14/2017 Status: F Source: [facility] 6:49 AM [facility] REPOSITORY TYPE CODE TESTS RESULT OUT OF REFERENCE UNITS RANGE LAB RESADENO( Not Detected LOINC) Adenovirus Not Detected LAB COVHKU1(L Not Detected OINC) Coronavirus HKU1 Not Detected LAB COVNL63(L Not Detected OINC) Coronavirus NL63 Not Detected LAB NcI158U(L Not Detected OINC) Coronavirus 229E Not Detected LAB COVOC43(L Not Detected OINC) Coronavirus OC43 Not Detected LAB HMV(LOINC Not Detected ) Human Metapneumovirus Not Detected LAB INFA(LOIN Not Detected C) Influenza A Not Detected LAB INFAB(LIZETT Not Detected NC) Influenza B Not Detected LAB PARAFLU1( Not Detected LOINC) Parainfluenza 1 Not Detected LAB PARAFLU2( Not Detected LOINC) Parainfluenza 2 Not Detected LAB PARAFLU3( Not Detected LOINC) Parainfluenza 3 Not Detected LAB PARAFLU4( Not Detected LOINC) Parainfluenza 4 Not Detected LAB RHINO(LIZETT Not Detected NC) Rhinovirus/Enterovir us Not Detected LAB RESRSV(LO Not Detected INC) Respiratory Syncytial Virus Not Detected LAB RESMYCO(L Not Detected OINC) Mycoplasma pneumoniae Not Detected LAB RESCHLAM( Not Detected LOINC) Chlamydophila pneumoniae Not Detected LAB RESBORD(L Not Detected OINC) Bordetella Pertussis Not Detected LAB RESBPAR(L Not Detected OINC) Bordetella Parapertussis Not Detected Performed By: #### RESPID #### [place] [id number] CBC Collected: 12/14/2017 Status: F Source: [facility] 4:54 AM [facility] REPOSITORY TYPE CODE TESTS RESULT OUT OF REFERENCE UNITS RANGE LAB WBC(LOINC) 4.50-10.80 10 3/mcL High WBC 11.70 LAB RBCCT(LOINC 4.10-5.30 10 6/mcL ) Low RBC 2.92 LAB HGB(LOINC) 12.0-16.0 G/dL Low Hgb 8.9 LAB HCT(LOINC) 34.0-46.0 % Low Hct 26.0 LAB MCV(LOINC) 80.0-99.0 fL MCV 89.0 LAB MCH(LOINC) 27.0-33.0 pg MCH 30.3 LAB MCHC(LOINC) 32.0-36.0 G/dL MCHC 34.1 LAB RDW(LOINC) 11.5-15.5 % RDW 13.6 LAB PLT(LOINC) 150-450 10 3/mcL High Platelet 452 LAB MPV(LOINC) 6.6-10.5 fL MPV 6.9 Performed By: #### CBC, ADIFF, ANEU, BMP, GFR #### [place] [id number] .AUTO DIFF Collected: 12/14/2017 Status: F Source: [facility] 4:54 AM [place] HOSPITAL REPOSITORY TYPE CODE TESTS RESULT OUT OF REFERENCE UNITS RANGE LAB CAITLYN(LOINC) 50.0-75.0 % High Neutrophil % 79.3 LAB LYM(LOINC) 20.0-40.0 % Low Lymphocyte % 10.3 LAB MON(LOINC) 2.0-13.0 % Monocyte % 6.7 LAB EO(LOINC) 0.0-6.0 % Eosinophil % 3.2 LAB BAS(LOINC) 0.0-2.5 % Basophil % 0.5 LAB ABLYM(LOIN 0.90-4.32 10 3/mcL C) Lymphocyte, 1.20 Absolute LAB MAHAD(LOINC 0.09-1.40 10 3/mcL ) Monocyte, 0.80 Absolute LAB AEOS(LOINC 0.00-0.65 10 3/mcL ) Eosinophil, 0.40 Absolute LAB ABAS(LOINC 0.00-0.27 10 3/mcL ) Basophil, 0.10 Absolute Performed By: #### CBC, ADIFF, ANEU, BMP, GFR #### [place] [address] .NEUABS Collected: 12/14/2017 Status: F Source: [facility] 4:54 AM [facility] REPOSITORY TYPE CODE TESTS RESULT OUT OF REFERENCE UNITS RANGE LAB ANEU(LOINC) 2.25-8.10 10 3/mcL High Neutrophil, 9.30 Absolute Performed By: #### CBC, ADIFF, ANEU, BMP, GFR #### [place] [address] BMP Collected: 12/14/2017 Status: F Source: [facility] 4:54 AM [facility] REPOSITORY TYPE CODE TESTS RESULT OUT OF REFERENCE UNITS RANGE LAB GLU(LOINC) 70-110 mg/dL Glucose High Level 120 LAB NA(LOINC) 136-145 mEq/L Low Sodium Level 132 LAB K(LOINC) 3.5-5.0 mEq/L Potassium Level 5.0 LAB CL(LOINC) 98-110 mEq/L Low Chloride 91 LAB CO2(LOINC) 22-32 mEq/L Low CO2 21 LAB EBAL(LOINC 4.0-15.0 mEq/L ) Electrolyte High Balance 20.0 LAB BUN(LOINC) 8.0-22.0 mg/dL BUN High 63.0 LAB CRE(LOINC) 0.50-1.20 mg/dL Creatinine High Lvl (s) 9.58 LAB BC(LOINC) 10.0-22.0 ratio Low BUN/Creatinine 6.6 Ratio LAB CA(LOINC) 8.4-10.1 mg/dL Low Calcium Lvl 7.5 Performed By: #### CBC, ADIFF, ANEU, BMP, GFR #### [place] [address] .GFR Collected: 12/14/2017 Status: F Source: [facility] 4:54 AM [facility] REPOSITORY TYPE CODE TESTS RESULT OUT OF REFERENCE UNITS RANGE LAB GFRAA(LOINC ml/min/1.73 ) sqm GFR 5 Haitian Result Comment: GFR Population mean for , Non- Americans Ages 20-29 = 116 mL/min/1.73 sq.m. Ages 30-39 = 107 mL/min/1.73 sq.m. Ages 40-49 = 99 mL/min/1.73 sq.m. Ages 50-59 = 93 mL/min/1.73 sq.m. Ages 60-69 = 85 mL/min/1.73 sq.m. Ages 70+ = 75 mL/min/1.73 sq.m. Chronic Kidney Disease: Less than 60 mL/min/1.73 square meters End Stage Renal Disease: Less than 15 mL/min/1.73 square meters LAB GFRNO(LOINC) ml/min/1.73sqm GFR Non- 4 Result Comment: GFR Population mean for , Non- Americans Ages 20-29 = 116 mL/min/1.73 sq.m. Ages 30-39 = 107 mL/min/1.73 sq.m. Ages 40-49 = 99 mL/min/1.73 sq.m. Ages 50-59 = 93 mL/min/1.73 sq.m. Ages 60-69 = 85 mL/min/1.73 sq.m. Ages 70+ = 75 mL/min/1.73 sq.m. Chronic Kidney Disease: Less than 60 mL/min/1.73 square meters End Stage Renal Disease: Less than 15 mL/min/1.73 square meters Performed By: #### CBC, ADIFF, ANEU, BMP, GFR #### [place] [address] VANCR Collected: 12/13/2017 Status: F Source: [facility] 8:41 PM [facility] REPOSITORY TYPE CODE TESTS RESULT OUT OF REFERENCE UNITS RANGE LAB LD021(LOIN C) LDose Vancomycin: See eMAR (random) LAB VANR(LOINC mcg/mL ) Vancomycin Lvl 16.0 (random) Result Comment: No normal reference range reported for random vancomycin testing. Performed By: #### VANCR #### [place] [address] Observed: 12/13/2017 Status: F Source: [facility] 10:39 AM [facility] REPOSITORY . MICRO - Microbiology PROCEDURE: Blood Culture (bacterial) [*1] SOURCE: Blood BODY SITE: COLLECTED DATE/TIME: 12/13/2017 10:39 EDT RECEIVED DATE/TIME: 12/13/2017 11:30 EDT START DATE/TIME: 12/13/2017 11:30 EDT FREE TEXT SOURCE: FINAL REPORTS Final Report [] Verified Date/Time/Personnel: 12/18/2017 11:59 EDT Blood Culture: No Growth at 5 days. PRELIMINARY REPORTS Preliminary Report [] Verified Date/Time/Personnel: 12/13/2017 12:59 EDT Culture has been received in lab and is no growth to date. Routine cultures are held for 5 days. Performing Locations *1: This test was performed at: [address], [facility] , [facility] Performed By: #### CBL #### [place] [address] MYCO Collected: 12/13/2017 Status: F Source: [facility] 10:39 AM [facility] REPOSITORY TYPE CODE TESTS RESULT OUT OF REFERENCE UNITS RANGE LAB AMYCM(LOIN C) Mycoplasma IgM Negative Result Comment: INTERPRETATION OF MYCOPLASMA BY EIA (Effective 02/23/04): Negative No detectable antibodies to M. pneumoniae. Indicates absence of current or previous infection. Positive Reactive for antibodies to M. pneumoniae. Indicates a past or recent infection. Equivocal Equivocal for antibodies to M. pneumoniae. Repeat testing by an alternate method suggested. LAB AMYCG(LOINC) Mycoplasma IgG Pos Result Comment: INTERPRETATION OF MYCOPLASMA BY EIA (Effective 02/23/04): Negative No detectable antibodies to M. pneumoniae. Indicates absence of current or previous infection. Positive Reactive for antibodies to M. pneumoniae. Indicates a past or recent infection. Equivocal Equivocal for antibodies to M. pneumoniae. Repeat testing by an alternate method suggested. Performed By: #### MYCO #### [place] [address] Observed: 12/13/2017 Status: F Source: [facility] 10:38 AM [facility] REPOSITORY . MICRO - Microbiology PROCEDURE: Blood Culture (bacterial) [*1] SOURCE: Blood BODY SITE: COLLECTED DATE/TIME: 12/13/2017 10:38 EDT RECEIVED DATE/TIME: 12/13/2017 11:30 EDT START DATE/TIME: 12/13/2017 11:30 EDT FREE TEXT SOURCE: FINAL REPORTS Final Report [] Verified Date/Time/Personnel: 12/18/2017 11:59 EDT Blood Culture: No Growth at 5 days. PRELIMINARY REPORTS Preliminary Report [] Verified Date/Time/Personnel: 12/13/2017 12:59 EDT Culture has been received in lab and is no growth to date. Routine cultures are held for 5 days. Performing Locations *1: This test was performed at: [address], [id number] , [facility] Performed By: #### CBL #### [place] [address] Observed: 12/13/2017 Status: F [facility] AM [facility] REPOSITORY . MICRO - Microbiology PROCEDURE: Blood Culture (bacterial and fungal) [*1] SOURCE: Blood BODY SITE: Arm L COLLECTED DATE/TIME: 12/13/2017 08:33 EDT RECEIVED DATE/TIME: 12/13/2017 09:43 EDT START DATE/TIME: 12/13/2017 09:43 EDT FREE TEXT SOURCE: FINAL REPORTS Final Report [] Verified Date/Time/Personnel: 01/11/2018 14:14 EST Blood Culture with fungus: No growth at 4 weeks. PRELIMINARY REPORTS Preliminary Report [] Verified Date/Time/Personnel: 12/13/2017 10:59 EDT Culture has been received in lab and is no growth to date. Culture will be held for four weeks. Performing Locations *1: This test was performed at: [facility], [address] [place] [address], [address] [place] [address] Performed By: #### CFUNGB #### [place] [address] CBC Collected: 12/13/2017 Status: F Source: [facility] 6:07 AM [facility] REPOSITORY TYPE CODE TESTS RESULT OUT OF REFERENCE UNITS RANGE LAB WBC(LOINC) 4.50-10.80 10 3/mcL High WBC 12.40 LAB RBCCT(LOINC 4.10-5.30 10 6/mcL ) Low RBC 2.75 LAB HGB(LOINC) 12.0-16.0 G/dL Low Hgb 8.3 LAB HCT(LOINC) 34.0-46.0 % Low Hct 24.6 LAB MCV(LOINC) 80.0-99.0 fL MCV 89.5 LAB MCH(LOINC) 27.0-33.0 pg MCH 30.2 LAB MCHC(LOINC) 32.0-36.0 G/dL MCHC 33.8 LAB RDW(LOINC) 11.5-15.5 % RDW 13.6 LAB PLT(LOINC) 150-450 10 3/mcL Platelet 355 LAB MPV(LOINC) 6.6-10.5 fL MPV 6.9 Performed By: #### CBC, ADIFF, ANEU, BMP, GFR #### [place] [address] .AUTO DIFF Collected: 12/13/2017 Status: F Source: [facility] 6:07 AM [facility] REPOSITORY TYPE CODE TESTS RESULT OUT OF REFERENCE UNITS RANGE LAB CAITLYN(LOINC) 50.0-75.0 % High Neutrophil % 82.4 LAB LYM(LOINC) 20.0-40.0 % Low Lymphocyte % 7.5 LAB MON(LOINC) 2.0-13.0 % Monocyte % 8.7 LAB EO(LOINC) 0.0-6.0 % Eosinophil % 1.0 LAB BAS(LOINC) 0.0-2.5 % Basophil % 0.4 LAB ABLYM(LOIN 0.90-4.32 10 3/mcL C) Lymphocyte, 0.90 Absolute LAB MAHAD(LOINC 0.09-1.40 10 3/mcL ) Monocyte, 1.10 Absolute LAB AEOS(LOINC 0.00-0.65 10 3/mcL ) Eosinophil, 0.10 Absolute LAB ABAS(LOINC 0.00-0.27 10 3/mcL ) Basophil, 0.00 Absolute Performed By: #### CBC, ADIFF, ANEU, BMP, GFR #### [place] [address] .NEUABS Collected: 12/13/2017 Status: F Source: [facility] 6:07 AM [facility] REPOSITORY TYPE CODE TESTS RESULT OUT OF REFERENCE UNITS RANGE LAB ANEU(LOINC) 2.25-8.10 10 3/mcL High Neutrophil, 10.20 Absolute Performed By: #### CBC, ADIFF, ANEU, BMP, GFR #### [place] [address] BMP Collected: 12/13/2017 Status: F Source: [facility] 6:07 AM [facility] REPOSITORY TYPE CODE TESTS RESULT OUT OF REFERENCE UNITS RANGE LAB GLU(LOINC) 70-110 mg/dL Low Glucose Level 61 LAB NA(LOINC) 136-145 mEq/L Low Sodium Level 135 LAB K(LOINC) 3.5-5.0 mEq/L Potassium Level 4.2 LAB CL(LOINC) 98-110 mEq/L Low Chloride 94 LAB CO2(LOINC) 22-32 mEq/L Low CO2 21 LAB EBAL(LOINC 4.0-15.0 mEq/L ) Electrolyte High Balance 20.0 LAB BUN(LOINC) 8.0-22.0 mg/dL BUN High 58.0 LAB CRE(LOINC) 0.50-1.20 mg/dL Creatinine High Lvl (s) 10.20 LAB BC(LOINC) 10.0-22.0 ratio Low BUN/Creatinine 5.7 Ratio LAB CA(LOINC) 8.4-10.1 mg/dL Low Calcium Lvl 7.3 Performed By: #### CBC, ADIFF, ANEU, BMP, GFR #### [facility] [address] [place] [address] .GFR Collected: 12/13/2017 Status: F Source: [facility] 6:07 AM [facility] REPOSITORY TYPE CODE TESTS RESULT OUT OF REFERENCE UNITS RANGE LAB GFRAA(LOINC ml/min/1.73 ) sqm GFR 5 Haitian Result Comment: GFR Population mean for , Non- Americans Ages 20-29 = 116 mL/min/1.73 sq.m. Ages 30-39 = 107 mL/min/1.73 sq.m. Ages 40-49 = 99 mL/min/1.73 sq.m. Ages 50-59 = 93 mL/min/1.73 sq.m. Ages 60-69 = 85 mL/min/1.73 sq.m. Ages 70+ = 75 mL/min/1.73 sq.m. Chronic Kidney Disease: Less than 60 mL/min/1.73 square meters End Stage Renal Disease: Less than 15 mL/min/1.73 square meters LAB GFRNO(LOINC) ml/min/1.73sqm GFR Non- 4 Result Comment: GFR Population mean for , Non- Americans Ages 20-29 = 116 mL/min/1.73 sq.m. Ages 30-39 = 107 mL/min/1.73 sq.m. Ages 40-49 = 99 mL/min/1.73 sq.m. Ages 50-59 = 93 mL/min/1.73 sq.m. Ages 60-69 = 85 mL/min/1.73 sq.m. Ages 70+ = 75 mL/min/1.73 sq.m. Chronic Kidney Disease: Less than 60 mL/min/1.73 square meters End Stage Renal Disease: Less than 15 mL/min/1.73 square meters Performed By: #### CBC, ADIFF, ANEU, BMP, GFR #### [place] [address] LAC Collected: 12/12/2017 Status: F Source: [facility] 7:23 PM [facility] REPOSITORY TYPE CODE TESTS RESULT OUT OF REFERENCE UNITS RANGE LAB LAC(LOINC) 0.2-2.0 mmol/L Lactic Acid 0.7 Lvl Performed By: #### LAC #### [place] [address] XR CHEST 2 VIEWS Observed: 12/12/2017 Status: F Source: [facility] 5:49 PM [facility] REPOSITORY ORIGINAL XR CHEST 2 VIEWS CLINICAL STATEMENT: cough, chest pain, shortness of breath, history of smoking COMPARISON: 11/25/2017 chest x-ray FINDINGS: The cardia mediastinal silhouette is again enlarged. The previously visualized lucency under the RIGHT hemidiaphragm appears to have resolved. The costophrenic angles are clear. There is no pneumothorax or vascular congestion. There is mild retrocardiac density with a few visualized air bronchograms with increased opacity in the LEFT lung base on the lateral chest x-ray. There is curvature of the thoracic spine. There are no acute osseous findings. IMPRESSION: Interval resolution of RIGHT possible pneumoperitoneum. Mild LEFT lower lobe consolidation, which may represent infectious/inflammatory process. I have personally reviewed the images of this examination and agree with the resident's findings and interpretation. Interpreted By: Adelso Ac DO Preliminary Report By: Jacoby Don DO Electronically Signed By: Adelso Ac DO Dictated Date: 12/12/2017 6:04:35 PM Prelim Date: 12/12/2017 6:09:00 PM Sign Date: 12/12/2017 6:30:25 PM CBC Collected: 12/12/2017 Status: F Source: [facility] 5:46 PM [facility] REPOSITORY TYPE CODE TESTS RESULT OUT OF REFERENCE UNITS RANGE LAB WBC(LOINC) 4.50-10.80 10 3/mcL High WBC 13.50 LAB RBCCT(LOINC 4.10-5.30 10 6/mcL ) Low RBC 2.89 LAB HGB(LOINC) 12.0-16.0 G/dL Low Hgb 8.7 LAB HCT(LOINC) 34.0-46.0 % Low Hct 25.9 LAB MCV(LOINC) 80.0-99.0 fL MCV 89.5 LAB MCH(LOINC) 27.0-33.0 pg MCH 29.9 LAB MCHC(LOINC) 32.0-36.0 G/dL MCHC 33.5 LAB RDW(LOINC) 11.5-15.5 % RDW 13.8 LAB PLT(LOINC) 150-450 10 3/mcL Platelet 385 LAB MPV(LOINC) 6.6-10.5 fL MPV 6.9 Performed By: #### CBC, ADIFF, ANEU, CMP, GFR, AMM #### [address] [address] .AUTO DIFF Collected: 12/12/2017 Status: F Source: [facility] 5:46 [facility] REPOSITORY TYPE CODE TESTS RESULT OUT OF REFERENCE UNITS RANGE LAB CAITLYN(LOINC) 50.0-75.0 % High Neutrophil % 82.0 LAB LYM(LOINC) 20.0-40.0 % Low Lymphocyte % 7.7 LAB MON(LOINC) 2.0-13.0 % Monocyte % 8.6 LAB EO(LOINC) 0.0-6.0 % Eosinophil % 0.9 LAB BAS(LOINC) 0.0-2.5 % Basophil % 0.8 LAB ABLYM(LOIN 0.90-4.32 10 3/mcL C) Lymphocyte, 1.00 Absolute LAB MAHAD(LOINC 0.09-1.40 10 3/mcL ) Monocyte, 1.20 Absolute LAB AEOS(LOINC 0.00-0.65 10 3/mcL ) Eosinophil, 0.10 Absolute LAB ABAS(LOINC 0.00-0.27 10 3/mcL ) Basophil, 0.10 Absolute Performed By: #### CBC, ADIFF, ANEU, CMP, GFR, AMM #### [address] [address] .NEUABS Collected: 12/12/2017 Status: F Source: [facility] 5:46 PM [facility] REPOSITORY TYPE CODE TESTS RESULT OUT OF REFERENCE UNITS RANGE LAB ANEU(LOINC) 2.25-8.10 10 3/mcL High Neutrophil, 11.10 Absolute Performed By: #### CBC, ADIFF, ANEU, CMP, GFR, AMM #### [address] [address] CMP Collected: 12/12/2017 Status: F Source: [facility] 5:46 PM [facility] REPOSITORY TYPE CODE TESTS RESULT OUT OF REFERENCE UNITS RANGE LAB GLU(LOINC) 70-110 mg/dL Glucose High Level 165 LAB NA(LOINC) 136-145 mEq/L Low Sodium Level 134 LAB K(LOINC) 3.5-5.0 mEq/L Potassium Level 4.3 LAB CL(LOINC) 98-110 mEq/L Low Chloride 93 LAB CO2(LOINC) 22-32 mEq/L Low CO2 21 LAB EBAL(LOINC 4.0-15.0 mEq/L ) Electrolyte High Balance 20.0 LAB BUN(LOINC) 8.0-22.0 mg/dL BUN High 53.0 LAB CRE(LOINC) 0.50-1.20 mg/dL Creatinine High Lvl (s) 10.00 LAB BC(LOINC) 10.0-22.0 ratio Low BUN/Creatinine 5.3 Ratio LAB CA(LOINC) 8.4-10.1 mg/dL Low Calcium Lvl 7.9 LAB PROT(LOINC 6.0-8.5 G/dL ) Total Protein 7.0 LAB ALB(LOINC) 3.2-4.8 G/dL Low Albumin Level 1.7 LAB GLB(LOINC) 1.5-3.8 G/dL Globulin High 5.3 LAB AG(LOINC) 0.9-1.6 ratio Low A/G Ratio 0.3 LAB BILT(LOINC 0.2-1.2 mg/dL ) Bili Total 0.3 LAB AP(LOINC) 38-126 U/L Alk Phos High 230 LAB AST(LOINC) 8-34 U/L AST/SGOT 22 LAB ALT(LOINC) 10-49 U/L ALT/SGPT 32 Performed By: #### CBC, ADIFF, ANEU, CMP, GFR, AMM #### [address] [address] .GFR Collected: 12/12/2017 Status: F Source: [facility] 5:46 PM [facility] REPOSITORY TYPE CODE TESTS RESULT OUT OF REFERENCE UNITS RANGE LAB GFRAA(LOINC ml/min/1.73 ) sqm GFR 5 Haitian Result Comment: GFR Population mean for , Non- Americans Ages 20-29 = 116 mL/min/1.73 sq.m. Ages 30-39 = 107 mL/min/1.73 sq.m. Ages 40-49 = 99 mL/min/1.73 sq.m. Ages 50-59 = 93 mL/min/1.73 sq.m. Ages 60-69 = 85 mL/min/1.73 sq.m. Ages 70+ = 75 mL/min/1.73 sq.m. Chronic Kidney Disease: Less than 60 mL/min/1.73 square meters End Stage Renal Disease: Less than 15 mL/min/1.73 square meters LAB GFRNO(LOINC) ml/min/1.73sqm GFR Non- 4 Result Comment: GFR Population mean for , Non- Americans Ages 20-29 = 116 mL/min/1.73 sq.m. Ages 30-39 = 107 mL/min/1.73 sq.m. Ages 40-49 = 99 mL/min/1.73 sq.m. Ages 50-59 = 93 mL/min/1.73 sq.m. Ages 60-69 = 85 mL/min/1.73 sq.m. Ages 70+ = 75 mL/min/1.73 sq.m. Chronic Kidney Disease: Less than 60 mL/min/1.73 square meters End Stage Renal Disease: Less than 15 mL/min/1.73 square meters Performed By: #### CBC, ADIFF, ANEU, CMP, GFR, AMM #### [address] [address] AMM Collected: 12/12/2017 Status: F Source: [facility] 5:46 PM [facility] REPOSITORY TYPE CODE TESTS RESULT OUT OF REFERENCE UNITS RANGE LAB AMM(LOINC) 25-35 mcmol/l Low Ammonia 20 Performed By: #### CBC, ADIFF, ANEU, CMP, GFR, AMM #### [address] [address] PROGRESS Observed: 12/11/2017 Status: COMPLETED Source: [place] 1:47 PM [facility] RE[facility]IT[facility] HNO ID: [id number] Author: Tracey Escalante) Adan Service: (none) Author Type: Registered Nurse Type: Progress Notes Filed: 12/11/2017 1:51 PM Note Text: PRIMARY CARE COORDINATION QUICK NOTE Provider Action/FYI Dilated Retinal Exam completed on 10/27/17 by [facility] HTN Retinopathy OU Patient identified by name and date . Tracey Arellano RN December 11, 2017 1:48 PM CNPN Observed: 12/11/2017 Status: COMPLETED Source: [place] 12:00 AM [facility]IT[facility] COLLETTE KELLY ([id number]) 1970 F TRN Date Time Provider Department 12/11/17 [facility] During your visit today, we recorded the following information about you: Sharlene Dempsey LPN, RN L AND D 12/11/2017 10:01 AM Signed ----- Message from Kannan Narayanan) Tye sent at 12/11/2017 9:19 AM EDT ----- Hemoglobin continues to decrease from last labs on 12/04. Down from 10.8 to 8.5. Needs to follow up with GI, continue pantoprazole, and receive Epogen shots as scheduled through nephrology. Noted minimal elevation in WBC and platelets, possibly 2/2 blood transfusions vs inflammatory process. Will recheck at future OV. Sharlene Dempsey, RN L AND D, RN L AND D 12/11/2017 10:08 AM Signed Spoke with pt gave information provided. Pt voices understanding. Pt has no appointment for gastroenterology. Will send to schedulers to help set up . Could you please place consult.Pended. Please assist in scheduling with gastro. Kannan Gamble MD 12/11/2017 10:10 AM Signed She was given instructions to follow up with GI on discharge from the hospital. Should have a number to call to follow up with GI as seen while inpatient. Vanesa Gross Ma 12/11/2017 12:57 PM Signed Detailed message left advising patient of instructions. May Nelia 12/19/2017 1:51 PM Signed LM for patient to call and schedule with Gastro. May Nelia 12/26/2017 1:36 PM Signed 2nd message left for patient. May Nelia 01/05/2018 11:01 AM Signed Third attempt to reach patient. Patient has appt with PCP on 01/15/18. Allergies As of Date: 12/11/2017 Noted Allergy Reaction AUGMENTIN (AMOXICILLIN-POT CLAVUL*07/22/2017 11 - Vomiting BACTRIM (SULFAMETHOXAZOLE-TRIMETH*07/22/2017 14 - Other: See Comments Comments: Chest pain BUSPAR (BUSPIRONE HCL) 10/22/2017 14 - Other: See Comments Comments: Night terrors LASIX (FUROSEMIDE) 07/22/2017 7 - Swelling Date Reviewed: 12/10/2017 Reviewed by: Vanesa Gross Ma - Fully Assessed Reason for Visit: Results [95] Prescriptions as of 12/11/2017 Sig: CYCLOBENZAPRINE 5 MG TABLET Take 5 mg by mouth three time* HYDROXYZINE PAMOATE 50 MG CAP* Take 50 mg by mouth four time* SERTRALINE 100 MG TABLET Take 1 tablet by mouth once d* INSULIN GLARGINE (U-100) 100 * Inject 5 Units subcutaneously* PANTOPRAZOLE 40 MG TABLET,DEL* Take 40 mg by mouth twice kailash* EPOETIN JOSE 20,000 UNIT/2 ML* Inject 2 mL subcutaneously on* ACETAMINOPHEN 325 MG CAPSULE Take by mouth every 4 hours a* GENTAMICIN 0.1 % TOPICAL CREAM HUMALOG KWIKPEN (U-100) INSUL* Sliding Scale: <60 >400 Call* SEVELAMER HCL 800 MG TABLET Take 800 mg by mouth three ti* CYCLOBENZAPRINE 10 MG TABLET Take 1 tablet by mouth three * PREDNISONE 20 MG TABLET Take 1 tablet by mouth once d* Patient not taking: Reported on 12/10/2017 CYCLOBENZAPRINE ORAL Take 5 mg by mouth three time* CLONIDINE HCL 0.1 MG TABLET 1 tablet four times daily. Patient not taking: Reported on 12/10/2017 AMLODIPINE 10 MG TABLET 1 tablet once daily. INSULIN ASPART U-100 100 UNI* Inject subcutaneously three t* DOCUSATE SODIUM 100 MG CAPSULE Take 100 mg by mouth once kailash* CALCIUM ACETATE 667 MG [employer]LE [employer] RX 1 MG-60 MG-300 MCG* X ALPRAZOLAM 0.25 MG TABLET Problem List As Of Date 12/11/2017 Noted Resolved ESRD (end stage renal disease) (HCC) [N18.6] INVALID FOR* More... Multiple gastric ulcers [K25.9] Anxiety [F41.9] Depression [F32.9] Encounter Status:Closed by VANESA GROSS MA on 12/11/17 PROGRESS Observed: 12/10/2017 Status: COMPLETED Source: [place] 10:00 PM [facility] REPOSITORY HNO ID: [id number] Author: Kannan Narayanan) Tye Service: (none) Author Type: Physician Type: Progress Notes Filed: 12/10/2017 10:00 PM Note Text: Reviewed. PROGRESS Observed: 12/10/2017 Status: COMPLETED Source: [place] 1:51 PM [facility] REPOSITORY HNO ID: [id number] Author: Tracey GomezRn) Adan Service: (none) Author Type: Registered Nurse Type: Progress Notes Filed: 12/10/2017 2:33 PM Note Text: TRANSITION CARE MANAGEMENT (TCM) INITIAL CONTACT Provider Action/FYI: Saw pt with PCP at office visit Intake completed TC to [facility], asked to fax last visit note TC to Dr. Prieto, oil pit attendant, asked to fax last visit note. [facility] documents received, reviewed and placed on PCP's desk Initial contact with patient post discharge, spoke to patient and caregiver. Patient identified by name and . TRANSITION CARE MANAGEMENT: Date of Outreach: 12/10/2017 Outreach Attempt 1: Contact Made Date of Discharge 12/09/2017 Some recent data might be hidden SUMMARY: -Pt discharged from [facility] on 12/09. [facility] 11/25-12/04 -Follow up appointment on 12/10. -Medication review done by PCP CHARBEL. -Admitted for: Acute Respiratory Failure with Hypoxia GI Bleed CONCERNS: Patient and CG very concerned about ability to take care of pt at home. [facility] NEW MEDICATIONS: No discharge medication list MEDS HELD/DISCONTINUED: No discharge medication list BRIEF HOSPITAL COURSE: Pt seen in ED with c/o weakness and reported not feeling well over the past 2 days. Had missed several home dialysis treatments. C/O GARCIA, weakness SOB. Dx leukocytosis and decreased Hgb. Vomiting in ED which was dark and consistent with CG bleed. Required 2 units RBC, intubated and transferred to [facility] treated for: Acute Resp Failure, Acute K+ cardiac toxicity, Severe blood loss R/T UGI bleed upon chronic anemia, CRF stage V, Metabloic lactic acidosis and hx of DM and HTN Tracey Arellano RN December 10, 2017 2:26 PM PROGRESS Observed: 12/10/2017 Status: COMPLETED Source: [place] 1:51 PM [facility] [place] REPOSITORY HNO ID: [id number] Author: Tracey (Rn) Adan Service: (none) Author Type: Registered Nurse Type: Progress Notes Filed: 12/10/2017 1:51 PM Note Text: PRIMARY CARE COORDINATION INTAKE Provider Action/FYI: Patient identified for Primary Care Coordination from: PCP Referral Active Goals - Current status as of 12/10/2017 at 1:51 PM Most Recent - Address all appropriate HM and disease care gaps - Annual BMP - Annual foot exam - Annual microalbumin - Annual retina exam - Blood Pressure < 130/80 162/86 (12/10/2017) - Confirm medication adherence of all prescribed medications and uses them correctly - HBA1C drawn quarterly - Hemoglobin A1C < 7 - LDL at or below 100 mg/dL or on a high statin - Tobacco cessation - Understands and follows DASH diet - Weight mgmt/activity Health Maintenance Topics with due status: Overdue Topic Date Due HBA1C 11/14/1976 URINE ALBUMIN:CREATININE RATIO 11/14/1981 DILATED RETINAL EXAM 11/14/1981 DIABETIC FOOT EXAM 11/14/1981 ONE PNEUMOVAX PRIOR TO AGE 66 1987 LDL CHOLESTEROL 11/14/1989 ANNUAL PCP TEAM CHRONIC DISEASE VISIT 11/14/1989 BP CONTROLLED (<130/80) 11/14/1989 PAP EVERY 5 YEARS 11/14/2001 HPV EVERY 5 YEARS 11/14/2001 MAMMOGRAM 2011 DTAP,TDAP,TD 11/07/2017 Care Coordination: General Care Coordination (since 09/11/2017) Patient has been identified by name and date of Y Determined High Risk due to High Risk chronic condition; Unplanned Hospitalization in the last 6 months; Polypharmacy ( > 7meds); High Risk medications (anticoagulants, insulin, narcotics, ect.); Advanced/progressive illness; Chronic Symptomatology; Physical limitations; Multiple specialists; Positive depression screening Chronic High Risk conditions Depression Assessment completed with Patient; Spouse or significant other Living arrangement Children; Spouse Support system Family; Rudolph based What is the health status of your caregiver? Fair Are there others that you care for? No (Has one child at home but cares for patient and child) Type of residence Private residence Home care services Yes Home care services Skilled care; PT/OT; Other (Enter Comment) (VETERINARY HOSPITAL ATTENDANT) Equipment used at home Wheelchair; Walker; Other (Enter Comment) (Peritoneal dialysis equipment, toilet rails) Do you have any assistive devices to help you communicate? No Communication Barriers Visual impairment (Has blurred vision at times due to retinal issues) Have you been in any hospital and/or ED outside the [facility] in the Past 6 months? Yes (Enter Comment) I am convinced of the importance of my prescription medication Agree mostly I worry that my prescription medication will do more harm than good to me Disagree completely I feel financially burdened by my out of pocket expenses for my prescription medication Disagree completely Patient is categorized as Low Risk Experiencing side effects from current medications -- (unsure of side effects) Difficulty keeping appointments No Family aware of the patient's advance care planning wishes No Yazidi or spiritual beliefs that impact treatment No Chronic pain No Advance Directives discussion was initiated with the pt. The following actions were taken Pt not ready, check back at a later date Social Determinants: Education (since 09/11/2017) Who is providing Assessment Info? Caregiver Health Literacy (since 09/11/2017) How often do you need to have someone help you when you read instructions, pamphlets, or other written material from your doctor or pharmacy? 3 (Has visual problems at times) How confident are you filling out medical forms by yourself? 1 How best do you like to receive information? Verbal Resource Strain (since 09/11/2017) In the last 12 months, did you ever eat less than you felt you should because there wasn?t enough money for food? No In the last 12 months, has your [employer] company shut off your service for not paying bills? No Are you worried that in the next 2 months, you may not have stable housing? No Do problems getting child, senior, or adult care make it difficult for you to work or study? No In the last 12 months, have you needed to see a doctor but could not because of cost? No Are you afraid you might be hurt in your apartment building or house? No If you answered ?yes? to any of the previous six questions, would you like to receive assistance with any of these needs? No Are any of your needs urgent? No Depression (since 09/11/2017) Over the past 2 weeks, how often have you felt little interest or pleasure in doing things? Nearly every day Over the past 2 weeks, how often have you felt down, depressed, or hopeless? Nearly every day Diet (since 09/11/2017) Diet: Diabetic diet Physical Activity (since 09/11/2017) Physical Activity Unable to exercise Tobacco Use (since 09/11/2017) Tobacco Outreach -- (smokes 1/2 ppd) Alcohol Use (since 09/11/2017) How often do you have a drink containing alcohol? Never Social Connection and Isolation (since 09/11/2017) Are you now , , , , never or living with a partner? In a typical week, how many times do you talk on the telephone with family, friends, or neighbors? More than 3 times per week How often do you get together with friends or relatives? More than 3 times per week How often do you attend meeting for clubs, rudolph-based organizations, or other social groups? More than 4 times per year Intimate Partner Violence (since 09/11/2017) Has there ever been a time that you had safety concerns? No Stress (since 09/11/2017) Do you feel stress - tense, restless, nervous, or anxious, or unable to sleep at night because your mind is troubled all the time - these days? Very much Food Insecurity (since 09/11/2017) Within the past 12 months, you worried that your food would run out before you got money to buy more. Never true Within the past 12 months, the food you bought just didn't last and you didn't have money to get more. Never true Transportation Needs (since 09/11/2017) In the past 12 months, has lack of transportation kept you from medical appointments or from getting medications? No In the past 12 months, has lack of transportation kept you from meetings, work, or getting things needed for daily living? No Transportation means: Regular Car Activities of Daily Living: Patients can perform the following activities without help: (since 09/11/2017) Dressing No Bathing No Doing laundry No Climbing a flight of stairs No Walking briskly No Instrumental activities of daily living (since 09/11/2017) Do you drive a car? Yes Do you need help from others to take care of things inside the house, for example: laundry, house cleaning, preparing meals? Yes Did you have the help you needed? Yes Do you need help from others with errands outside the house, for example: shopping for groceries or clothes, going medical appointments? Yes Did you have the help you needed? Yes Fall Risk: Fall Risk (since 09/11/2017) One or more falls in the last year: Yes Any near falls in the last year? Yes Advised to use a cane or walker to get around safely: Yes Feels unsteady when walking: Yes Steadies self on furniture while walking at home: Yes Worried about falling: Yes Needs to push with hands when rising from a chair: Yes Has trouble stepping up onto a curb: Yes Often has to vidal to the toilet: No Has lost some feeling in feet: Yes Takes medicine that makes him/her feel lightheaded or more tired than usual: Yes Takes medicine to sleep or improve mood: Yes Fall risk factors: Depression; Foot problems; Psychoactive medications/medications with anticholinergic effects; Visual difficulties Tracey Arellano RN CBC AND DIFFERENTIAL Collected: 12/10/2017 Status: F Source: [place] 12:03 PM [facility] REPOSITORY TYPE CODE TESTS RESULT OUT OF REFERENCE UNITS RANGE LAB WBC 3.70-11.00 k/uL WBC High 11.19 LAB RBC 3.90-5.20 m/uL Low RBC 2.86 LAB HGB 11.5-15.5 g/dL Low Hemoglobin 8.5 LAB HCT 36.0-46.0 % Low Hematocrit 26.3 LAB MCV 80.0-100.0 fL MCV 92.0 LAB MCH 26.0-34.0 pG MCH 29.7 LAB MCHC 30.5-36.0 g/dL MCHC 32.3 LAB RDWCV 11.5-15.0 % RDW-CV 13.2 LAB PLTCT 150-400 k/uL Platelet High Count 429 LAB MPV 9.0-12.7 fL MPV 9.3 LAB ANEUT % Neut% 78.0 LAB AANEUT 1.45-7.50 k/uL Abs Neut High 8.72 LAB ALYMP % Lymph% 9.3 LAB AALYMP 1.00-4.00 k/uL Abs Lymph 1.04 LAB AMONO % Iron% 11.5 LAB AAMONO <0.87 k/uL Abs Iron High 1.29 LAB AEOS % Eosin% 0.8 LAB AAEOS <0.46 k/uL Abs Eosin 0.09 LAB ABASO % Baso% 0.4 LAB AABASO <0.11 k/uL Abs Baso 0.05 LAB AUNRBC 0 /100 WBC NRBCs 0.0 LAB ABNRBC <0.01 k/uL Absolute nRBC <0.01 LAB DTYP DTYPE Auto Diff Performed By: #### CBCDIF, CMP #### [facility] [address] [place], [place] [address] COMP METABOLIC PANEL Collected: 12/10/2017 Status: F Source: [place] 12:03 PM [facility] REPOSITORY TYPE CODE TESTS RESULT OUT OF REFERENCE UNITS RANGE LAB TP 6.3-8.0 g/dL Test reordered by Protein, [facility]. Total Result Comment: [place] [id number] Account Credited LAB ALB 3.9-4.9 g/dL Test Albumin reordered by [facility]. Result Comment: [place] [id number] Account Credited LAB CA 8.5-10.2 mg/dL Test Calcium, Total reordered by [facility]. Result Comment: [place] [id number] Account Credited LAB TBIL 0.2-1.3 mg/dL Bilirubin, Test Total reordered by [facility]. Result Comment: [place] [id number] Account Credited LAB ALKP 34-123 U/L Alkaline Test Phosphatase reordered by [facility]. Result Comment: [place] [id number] Account Credited LAB AST 13-35 U/L Test AST reordered by [facility]. Result Comment: [place] [id number] Account Credited LAB GLU 74-99 mg/dL Test Glucose reordered by [facility]. Result Comment: [place] [id number] Account Credited LAB BUN 7-21 mg/dL Test BUN reordered by [facility]. Result Comment: [place] [id number] Account Credited LAB CRET 0.58-0.96 mg/dL Creatinine Test reordered by [facility]. Result Comment: [place] [id number] Account Credited LAB NA 136-144 mmol/L Test Sodium reordered by [facility]. Result Comment: [place] [id number] Account Credited LAB K 3.7-5.1 mmol/L Test Potassium reordered by [facility]. Result Comment: [place] [id number] Account Credited LAB CL 97-105 mmol/L Test Chloride reordered by [facility]. Result Comment: [place] [id number] Account Credited LAB CO2 22-30 mmol/L Test CO2 reordered by [facility]. Result Comment: [place] [id number] Account Credited LAB AGAP 9-18 mmol/L Test Anion Gap reordered by [facility]. Result Comment: [place] [id number] Account Credited LAB ALT 7-38 U/L Test reordered ALT by [facility]. Result Comment: [place] [id number] Account Credited LAB GFRAA eGFR- Amer. Test reordered by [facility]. Result Comment: [place] [id number] Account Credited LAB GFRNAA . eGFR-All Test Other Races reordered by [facility]. Result Comment: [place] [id number] Account Credited LAB GFRPED eGFR-Ped. Test Factor reordered by [facility]. Result Comment: [place] [id number] Account Credited Performed By: #### CBCDIF, CMP #### [facility] [address] [place] [address] COMP METABOLIC PANEL Collected: 12/10/2017 Status: F Source: [place] 11:54 AM [facility] REPOSITORY TYPE CODE TESTS RESULT OUT OF REFERENCE UNITS RANGE LAB TP 6.3-8.0 g/dL Protein, Total 6.9 LAB ALB 3.9-4.9 g/dL Low Albumin 2.6 LAB CA 8.5-10.2 mg/dL Calcium, Total 8.5 LAB TBIL 0.2-1.3 mg/dL Bilirubin, Total 0.2 LAB ALKP 34-123 U/L Alkaline High Phosphatase 208 LAB AST 13-35 U/L AST 24 LAB GLU 74-99 mg/dL Low Glucose 65 Result Comment: The [place] Diabetes Association (ADA) provides guidance for cutoff values for fasting glucose and random glucose. The ADA defines fasting as no caloric intake for at least 8 hours. Fas ting plasma glucose results between 100 to 125 mg/dL indicate increased risk for diabetes (prediabetes). Fasting plasma glucose results greater than or equal to 126 mg/dL meet the criteria for diagnosis of diabetes. In the absence of unequivocal hyperglycemia, results should be confirmed by repeat testing. In a patient with classic symptoms of hyperglycemia or hyperglycemic crisis, random plasma glucose results greater than or equal to 200 mg/dL meet the criteria for diagnosis of diabetes. Reference: Standards of Medical Care in Diabetes 2016, [place] [employer] Association. Diabetes Care. 2016.39(Suppl 1). LAB BUN 7-21 mg/dL BUN High 48 LAB CRET 0.58-0.96 mg/dL Creatinine High 9.38 LAB NA 136-144 mmol/L Sodium 136 LAB K 3.7-5.1 mmol/L Potassium High 5.2 LAB CL 97-105 mmol/L Low Chloride 90 LAB CO2 22-30 mmol/L Low CO2 19 LAB AGAP 9-18 mmol/L Anion Gap High 27 LAB ALT 7-38 U/L ALT 30 LAB GFRAA eGFR- 5 Amer. LAB GFRNAA . eGFR-All Other Races 5 Result Comment: eGFR (Estimated GFR) Units of measure: mL/min/1.73 meters squared eGFR is derived from the reexpressed MDRD Study equation using the following parameters: serum creatinine, age, gender and race. The creatinine assay has been calibrated to be traceable to IDMS. An eGFR <60 mL/min/1.73m2 for >3 months is consistent with chronic kidney disease. Refer to KDOQI guidelines for clinical interpretation. In patients with unstable renal function, e.g. those with acute kidney injury, the eGFR may not accurately reflect actual GFR. Performed By: #### CMP #### [facility] [address] [place], [place] [address] PROGRESS Observed: 12/10/2017 Status: COMPLETED Source: [place] 9:48 AM [facility] REPOSITORY O ID: [id number] Author: Kannan Narayanan) Tye Service: (none) Author Type: Physician Type: Progress Notes Filed: 12/15/2017 8:34 AM Note Text: Chief Complaint Patient presents with: senior living d/c: [facility] Collette Kelly is a 47 year old female who presents here today for hospital follow up from [facility]. Incomplete records today. Patient was admitted to [facility] on 11/21 after presenting to [facility] after missing several days of peritoneal dialysis at home. Presented with weakness, and SOB and was found to have leukocytosis with WBC 22.8 but hemoglobin was profoundly decreased at 3.8 and had lactic acidosis as well. Potassium 7, creatinine 13.2. Platelets normal. Vomited in the ED with dark color and guiac was positive. Given 2 units of PRBCs. Developed difficulty breathing and required intubation. Was admitted to MICU and was on the ventilator for 2 days before coughing it out on her own. Was in the ICU for 4 days total and required 9 units of PRBCs and dialysis daily. Was in the hospital for total of 14 days and then transferred to [facility] for PT/OT until 12/08 when she requested to be discharged home with spouse. Since discharge, spouse has had hard time caring for patient. States that her legs have been weak and has had difficulty ambulating with walker. Using wheelchair mostly. Taking medications as prescribed without side effects. Discharged home with orders for PT/OT, SN, and V[facility]ERIN[facility] HOSPITAL ATTENDANT, approved yesterday, but have not been out to house as of yet. Underwent peritoneal dialysis yesterday as recommended. Has follow up scheduled today for Epo shot and typically follows up with Dr. Prieto for nephrology. Patient states that her anxiety symptoms have been uncontrolled since discharge with frequent panic attacks and shaking. Feels like she is having one today which is what she is attributing her elevated BP and HR to. Has vistaril at home which she takes up to 4 times daily which works well. Has not taken one today. On SSRI for depression and anxiety and doesn't seem to be helping with either at low dosage. Requesting increase or change in medication. Also noted that she is taking both Zoloft and Celexa. Celexa was discontinued at a previous appointment and thinks error was likely due to empty pill bottle they brought to the hospital. Depression: Feels down/depressed/hopless, decreased interest/energy/concentration, decreased appetite, feeling of guilt. Denies suicidal ideations. Would like induration in the right groin checked today. Had US while inpatient and was negative for DVT. Denies erythema, TTP, warmth to touch. Has right knee pain from a fall at [facility] while using walker. Xray negative. Denies erythema or swelling today. Past medical history, appointments, medications, allergies reviewed. Previous Medical History PAST MEDICAL HISTORY Diagnosis Date - Anxiety - Depression - Diabetes mellitus (HCC) - ESRD (end stage renal disease) on dialysis ([facility]) 03/2017 Dr. Prieto - Multiple gastric ulcers - Tobacco use Previous Surgical History No past surgical history on file. Family History No family history on file. Patient Allergies ALLERGIES Allergen Reactions - Augmentin [Amoxicil* Vomiting - Bactrim [Sulfametho* Other: See Comments Chest pain - Buspar [Buspirone H* Other: See Comments Night terrors - Lasix [Furosemide] Swelling Current Medications Current Outpatient Prescriptions on File Prior to Visit: cyclobenzaprine (FLEXERIL) 10 mg tablet Take 1 tablet by mouth three times daily as needed for Muscle Spasm. predniSONE (DELTASONE) 20 mg tablet Take 1 tablet by mouth once daily. cyclobenzaprine HCl (CYCLOBENZAPRINE ORAL) Take 5 mg by mouth three times daily as needed. cloNIDine HCl (CATAPRES) 0.1 mg tablet 1 tablet four times daily. amLODIPine (NORVASC) 10 mg tablet 1 tablet once daily. sertraline (ZOLOFT) 50 mg tablet Take 1 tablet by mouth once daily. insulin aspart U-100 (NOVOLOG FLEXPEN U-100 INSULIN) 100 unit/mL inpn Inject subcutaneously three times daily with meals. sliding scale insulin glargine,hum.rec.anlog (LANTUS U-100 INSULIN SUBCUTANEOUS) Inject 7 Units subcutaneously daily at bedtime. docusate sodium (COLACE) 100 mg capsule Take 100 mg by mouth once daily. ALPRAZolam (XANAX) 0.25 mg tablet calcium acetate (PHOSLO) 667 mg capsule [employer] tablet No current facility-administered medications on file prior to visit. Social History Social History Marital status: Spouse name: Years of education: Number of children: Social History Main Topics Smoking status: Current Every Day Smoker Packs/day: 0.00 Years: 0.00 Smokeless tobacco: Never Used Alcohol use: No Review of Symptoms REVIEW OF SYSTEMS GENERAL: No weight loss, malaise or fevers RESPIRATORY: Negative for cough, hemoptysis, wheezing, COPD, dyspnea or shortness of breath CARDIOVASCULAR: Negative for chest pain, leg swelling, hypertension, CHF or palpitations GI: No nausea, vomiting, or diarrhea SKIN: Negative for lesions, rash, and itching EXAM: BP 162/86 Pulse 116 Resp 16 Wt 84.4 kg (186 lb) SpO2 98% BMI 29.12 kg/m? General Appearance: anxious appearing. Shaking. In no acute distress. Skin:induration of right upper inner thigh without TTP, erythema, or fluctuance. Lungs: Lungs clear to auscultation. No wheezing, rhonchi, rales. Heart: Positive findings: tachycardia, splitting S2 with possible murmur. Abdomen: Normal abdominal exam, Abdomen soft, non-tender. Bowel sounds normal. No masses, organomegaly. Extremities: No deformities, edema, skin discoloration, clubbing or cyanosis. Good capillary refill. . KNEE:Location: right Redness: No. Warmth: No. Crepitus: No. Effusion: No. Health Maintenance List HBA1C due on 11/14/1976 URINE ALBUMIN:CREATININE RATIO due on 11/14/1981 DILATED RETINAL EXAM due on 11/14/1981 DIABETIC FOOT EXAM due on 11/14/1981 ONE PNEUMOVAX PRIOR TO AGE 66 due on 1987 LDL CHOLESTEROL due on 11/14/1989 ANNUAL PCP TEAM CHRONIC DISEASE VISIT due on 11/14/1989 BP CONTROLLED (<130/80) due on 11/14/1989 PAP EVERY 5 YEARS due on 11/14/2001 HPV EVERY 5 YEARS due on 11/14/2001 MAMMOGRAM due on 2011 DTAP,TDAP,TD(1 - Tdap) due on 11/07/2017 SERUM CREATININE due on 07/22/2018 HEMOGLOBIN/HEMATOCRIT due on 07/22/2018 INFLUENZA Completed ASSESSMENT/PLAN: 1. Gastrointestinal hemorrhage, unspecified gastrointestinal hemorrhage type - ICD9: 578.9, ICD10: K92.2 (primary diagnosis) Will continue PPI and have patient follow up with GI as recommended. Repeat CBC. - CBC + DIFF 2. Multiple gastric ulcers - ICD9: 531.90, ICD10: K25.9 See above. 3. ESRD (end stage renal disease) (HCC) - ICD9: 585.6, ICD10: N18.6 Peritoneal dialysis nightly as recommended. F/u with nephrology. - COMP METABOLIC PANEL 4. Anemia, unspecified type - ICD9: 285.9, ICD10: D64.9 Recheck CBC, continue epogen shots. Continue PPI. 5. Respiratory failure requiring intubation (HCC) - ICD9: 518.81, ICD10: J96.90 Resolved. 6. CRISTY (generalized anxiety disorder) - ICD9: 300.02, ICD10: F41.1 Uncontrolled. Increase zoloft to 100 mg daily and continue vistaril PRN. - SERTRALINE 100 MG TABLET 7. Moderate episode of recurrent major depressive disorder (HCC) - ICD9: 296.32, ICD10: F33.1 Stop Celexa. Increase zoloft. Recheck in 2 Weeks. 8. Weakness of both lower extremities - ICD9: 729.89, ICD10: R29.898 Home PT/OT. Spoke with nurse at [facility] regarding weakness and 's concerns with caring for patient at home. States that she was easily able to walk 300 feet to smoke with use of walker just the day prior and was not aware of concerns with weakness. Recheck in 2 weeks. Continue use of walker and 9. Acute pain of right knee - ICD9: 719.46, ICD10: M25.561 2/2 fall. Negative xray. Advised ice and OTC analgesics. 10. Tachycardia - ICD9: 785.0, ICD10: R00.0 Likely 2/2 anxiety attack. Vistaril PRN. Will check with SN and at next OV in 2 weeks. - CBC + DIFF - COMP METABOLIC PANEL 11. Abnormal second heart sound (S2) - ICD9: 785.3, ICD10: R01.2 - ECHO 12. Induration of skin - ICD9: 782.8, ICD10: R23.4 Will obtain venous duplex results. Recommend ice/heat to area. Recheck in 2 weeks. 13. Hospital discharge follow-up - ICD9: V67.59, ICD10: Z09 See above. I spent 60 minutes in the visit, with more than 50% of the total [id number] time of the visit in counseling / coordination of care. Kannan Gamble MD CNOV Observed: 12/10/2017 Status: COMPLETED Source: [place] 9:20 AM [facility] REPOSITORY [facility] COLLETTE KELLY ([id number]) 1970 F TRN Date Time Provider Department 12/10/17 9:20 AM KANNAN GAMBLE) [facility] During your visit today, we recorded the following information about you: Pulse Respiration Blood pressure Weight 116/minute 16/minute 162/86 84.4 kg Kannan Gabmle MD 12/15/2017 8:34 AM Signed Chief Complaint Patient presents with: senior living d/c: [facility] Collette Kelly is a 47 year old female who presents here today for hospital follow up from [facility]. Incomplete records today. Patient was admitted to [facility] on 11/21 after presenting to [facility] after missing several days of peritoneal dialysis at home. Presented with weakness, and SOB and was found to have leukocytosis with WBC 22.8 but hemoglobin was profoundly decreased at 3.8 and had lactic acidosis as well. Potassium 7, creatinine 13.2. Platelets normal. Vomited in the ED with dark color and guiac was positive. Given 2 units of PRBCs. Developed difficulty breathing and required intubation. Was admitted to MICU and was on the ventilator for 2 days before coughing it out on her own. Was in the ICU for 4 days total and required 9 units of PRBCs and dialysis daily. Was in the hospital for total of 14 days and then transferred to [facility] for PT/OT until 12/08 when she requested to be discharged home with spouse. Since discharge, spouse has had hard time caring for patient. States that her legs have been weak and has had difficulty ambulating with walker. Using wheelchair mostly. Taking medications as prescribed without side effects. Discharged home with orders for PT/OT, SN, and [facility]OSP[facility] ATTENDANT, approved yesterday, but have not been out to house as of yet. Underwent peritoneal dialysis yesterday as recommended. Has follow up scheduled today for Epo shot and typically follows up with Dr. Prieto for nephrology. Patient states that her anxiety symptoms have been uncontrolled since discharge with frequent panic attacks and shaking. Feels like she is having one today which is what she is attributing her elevated BP and HR to. Has vistaril at home which she takes up to 4 times daily which works well. Has not taken one today. On SSRI for depression and anxiety and doesn't seem to be helping with either at low dosage. Requesting increase or change in medication. Also noted that she is taking both Zoloft and Celexa. Celexa was discontinued at a previous appointment and thinks error was likely due to empty pill bottle they brought to the hospital. Depression: Feels down/depressed/hopless, decreased interest/energy/concentration, decreased appetite, feeling of guilt. Denies suicidal ideations. Would like induration in the right groin checked today. Had US while inpatient and was negative for DVT. Denies erythema, TTP, warmth to touch. Has right knee pain from a fall at [facility] while using walker. Xray negative. Denies erythema or swelling today. Past medical history, appointments, medications, allergies reviewed. Previous Medical History PAST MEDICAL HISTORY Diagnosis Date - Anxiety - Depression - Diabetes mellitus ([facility]) - ESRD (end stage renal disease) on dialysis ([facility]) 03/2017 Dr. Prieto - Multiple gastric ulcers - Tobacco use Previous Surgical History No past surgical history on file. Family History No family history on file. Patient Allergies ALLERGIES Allergen Reactions - Augmentin [Amoxicil* Vomiting - Bactrim [Sulfametho* Other: See Comments Chest pain - Buspar [Buspirone H* Other: See Comments Night terrors - Lasix [Furosemide] Swelling Current Medications Current Outpatient Prescriptions on File Prior to Visit: cyclobenzaprine (FLEXERIL) 10 mg tablet Take 1 tablet by mouth three times daily as needed for Muscle Spasm. predniSONE (DELTASONE) 20 mg tablet Take 1 tablet by mouth once daily. cyclobenzaprine HCl (CYCLOBENZAPRINE ORAL) Take 5 mg by mouth three times daily as needed. cloNIDine HCl (CATAPRES) 0.1 mg tablet 1 tablet four times daily. amLODIPine (NORVASC) 10 mg tablet 1 tablet once daily. sertraline (ZOLOFT) 50 mg tablet Take 1 tablet by mouth once daily. insulin aspart U-100 (NOVOLOG FLEXPEN U-100 INSULIN) 100 unit/mL inpn Inject subcutaneously three times daily with meals. sliding scale insulin glargine,hum.rec.anlog (LANTUS U-100 INSULIN SUBCUTANEOUS) Inject 7 Units subcutaneously daily at bedtime. docusate sodium (COLACE) 100 mg capsule Take 100 mg by mouth once daily. ALPRAZolam (XANAX) 0.25 mg tablet calcium acetate (PHOSLO) 667 mg capsule [employer] RX tablet No current facility-administered medications on file prior to visit. Social History Social History Marital status: Spouse name: Years of education: Number of children: Social History Main Topics Smoking status: Current Every Day Smoker Packs/day: 0.00 Years: 0.00 Smokeless tobacco: Never Used Alcohol use: No Review of Symptoms REVIEW OF SYSTEMS GENERAL: No weight loss, malaise or fevers RESPIRATORY: Negative for cough, hemoptysis, wheezing, COPD, dyspnea or shortness of breath CARDIOVASCULAR: Negative for chest pain, leg swelling, hypertension, CHF or palpitations GI: No nausea, vomiting, or diarrhea SKIN: Negative for lesions, rash, and itching EXAM: BP 162/86 Pulse 116 Resp 16 Wt 84.4 kg (186 lb) SpO2 98% BMI 29.12 kg/m? General Appearance: anxious appearing. Shaking. In no acute distress. Skin:induration of right upper inner thigh without TTP, erythema, or fluctuance. Lungs: Lungs clear to auscultation. No wheezing, rhonchi, rales. Heart: Positive findings: tachycardia, splitting S2 with possible murmur. Abdomen: Normal abdominal exam, Abdomen soft, non-tender. Bowel sounds normal. No masses, organomegaly. Extremities: No deformities, edema, skin discoloration, clubbing or cyanosis. Good capillary refill. . KNEE:Location: right Redness: No. Warmth: No. Crepitus: No. Effusion: No. Health Maintenance List HBA1C due on 11/14/1976 URINE ALBUMIN:CREATININE RATIO due on 11/14/1981 DILATED RETINAL EXAM due on 11/14/1981 DIABETIC FOOT EXAM due on 11/14/1981 ONE PNEUMOVAX PRIOR TO AGE 66 due on 1987 LDL CHOLESTEROL due on 11/14/1989 ANNUAL PCP TEAM CHRONIC DISEASE VISIT due on 11/14/1989 BP CONTROLLED (<130/80) due on 11/14/1989 PAP EVERY 5 YEARS due on 11/14/2001 HPV EVERY 5 YEARS due on 11/14/2001 MAMMOGRAM due on 2011 DTAP,TDAP,TD(1 - Tdap) due on 11/07/2017 SERUM CREATININE due on 07/22/2018 HEMOGLOBIN/HEMATOCRIT due on 07/22/2018 INFLUENZA Completed ASSESSMENT/PLAN: 1. Gastrointestinal hemorrhage, unspecified gastrointestinal hemorrhage type - ICD9: 578.9, ICD10: K92.2 (primary diagnosis) Will continue PPI and have patient follow up with GI as recommended. Repeat CBC. - CBC + DIFF 2. Multiple gastric ulcers - ICD9: 531.90, ICD10: K25.9 See above. 3. ESRD (end stage renal disease) (HCC) - ICD9: 585.6, ICD10: N18.6 Peritoneal dialysis nightly as recommended. F/u with nephrology. - COMP METABOLIC PANEL 4. Anemia, unspecified type - ICD9: 285.9, ICD10: D64.9 Recheck CBC, continue epogen shots. Continue PPI. 5. Respiratory failure requiring intubation ([facility]) - ICD9: 518.81, ICD10: J96.90 Resolved. 6. CRISTY (generalized anxiety disorder) - ICD9: 300.02, ICD10: F41.1 Uncontrolled. Increase zoloft to 100 mg daily and continue vistaril PRN. - SERTRALINE 100 MG TABLET 7. Moderate episode of recurrent major depressive disorder (HCC) - ICD9: 296.32, ICD10: F33.1 Stop Celexa. Increase zoloft. Recheck in 2 Weeks. 8. Weakness of both lower extremities - ICD9: 729.89, ICD10: R29.898 Home PT/OT. Spoke with nurse at [facility] regarding weakness and 's concerns with caring for patient at home. States that she was easily able to walk 300 feet to smoke with use of walker just the day prior and was not aware of concerns with weakness. Recheck in 2 weeks. Continue use of walker and 9. Acute pain of right knee - ICD9: 719.46, ICD10: M25.561 2/2 fall. Negative xray. Advised ice and OTC analgesics. 10. Tachycardia - ICD9: 785.0, ICD10: R00.0 Likely 2/2 anxiety attack. Vistaril PRN. Will check with SN and at next OV in 2 weeks. - CBC + DIFF - COMP METABOLIC PANEL 11. Abnormal second heart sound (S2) - ICD9: 785.3, ICD10: R01.2 - ECHO 12. Induration of skin - ICD9: 782.8, ICD10: R23.4 Will obtain venous duplex results. Recommend ice/heat to area. Recheck in 2 weeks. 13. Hospital discharge follow-up - ICD9: V67.59, ICD10: Z09 See above. I spent 60 minutes in the visit, with more than 50% of the total [id number] time of the visit in counseling / coordination of care. Kannan Gamble MD Referring Provider: SELF [[id number]] Allergies As of Date: 12/10/2017 Noted Allergy Reaction AUGMENTIN (AMOXICILLIN-POT CLAVUL*07/22/2017 11 - Vomiting BACTRIM (SULFAMETHOXAZOLE-TRIMETH*07/22/2017 14 - Other: See Comments Comments: Chest pain BUSPAR (BUSPIRONE HCL) 10/22/2017 14 - Other: See Comments Comments: Night terrors LASIX (FUROSEMIDE) 07/22/2017 7 - Swelling Date Reviewed: 12/10/2017 Reviewed by: Vanesa Gross Ma - Fully Assessed Reason for Visit: senior living d/c [Other] Cmt: Eric Almanzar Primary Visit Diagnosis:Gastrointestinal hemorrhage, unspecified gastrointestinal hemorrhage type [K92.2] Other Visit Diagnoses:Multiple gastric ulcers [K25.9] ESRD (end stage renal disease) ([facility]) [N18.6] Anemia, unspecified type [D64.9] Respiratory failure requiring intubation ([facility]) [J96.90] CRISTY (generalized anxiety disorder) [F41.1] Moderate episode of recurrent major depressive disorder ([facility]) [F33.1] Weakness of both lower extremities [R29.898] Acute pain of right knee [M25.561] Tachycardia [R00.0] Abnormal second heart sound (S2) [R01.2] Induration of skin [R23.4] Hospital discharge follow-up [Z09] Order(s):sertraline (ZOLOFT) 100 mg tabletTake 1 tablet by mouth once daily.Disp: 30 tabletRfl: 2 insulin glargine (LANTUS U-100 INSULIN) 100 unit/mL injectionInject 5 Units subcutaneously daily at bedtime.Disp: Rfl: Epoetin Jose (EPOGEN) 20,000 unit/2 mL solnInject 2 mL subcutaneously once every month.Disp: Rfl: CBC + DIFF [SQCBCDIF] Order #: [id number] FUTURE COMP METABOLIC PANEL [SQCMP] Order #: [id number] FUTURE ECHO [286532] Order #: [id number]: 1 FUTURE Prescriptions as of 12/10/2017 Sig: HYDROXYZINE PAMOATE 50 MG CAP* Take 50 mg by mouth four time* SERTRALINE 100 MG TABLET Take 1 tablet by mouth once d* INSULIN GLARGINE (U-100) 100 * Inject 5 Units subcutaneously* PANTOPRAZOLE 40 MG TABLET,DEL* Take 40 mg by mouth twice kailash* EPOETIN JOSE 20,000 UNIT/2 ML* Inject 2 mL subcutaneously on* ACETAMINOPHEN 325 MG CAPSULE Take by mouth every 4 hours a* SEVELAMER HCL 800 MG TABLET Take 800 mg by mouth three ti* CYCLOBENZAPRINE 10 MG TABLET Take 1 tablet by mouth three * AMLODIPINE 10 MG TABLET 1 tablet once daily. INSULIN ASPART U-100 100 UNI* Inject subcutaneously three t* [employer] RX 1 MG-60 MG-300 MCG* CYCLOBENZAPRINE 5 MG TABLET Take 5 mg by mouth three time* GENTAMICIN 0.1 % TOPICAL CREAM HUMALOG KWIKPEN (U-100) INSUL* Sliding Scale: <60 >400 Call* PREDNISONE 20 MG TABLET Take 1 tablet by mouth once d* Patient not taking: Reported on 12/10/2017 CYCLOBENZAPRINE ORAL Take 5 mg by mouth three time* CLONIDINE HCL 0.1 MG TABLET 1 tablet four times daily. Patient not taking: Reported on 12/10/2017 DOCUSATE SODIUM 100 MG CAPSULE Take 100 mg by mouth once kailash* ALPRAZOLAM 0.25 MG TABLET CALCIUM ACETATE 667 MG CAPSULE Problem List As Of Date 12/10/2017 Noted Resolved ESRD (end stage renal disease) ([facility]) [N18.6] INVALID FOR* More... Multiple gastric ulcers [K25.9] Anxiety [F41.9] Depression [F32.9] Prescriptions ordered this encounter Disp Refills Start End SERTRALINE 100 MG TABLET 30 t* 2 12/10/2017 Route: ORAL Sig: Take 1 tablet by mouth once daily. INSULIN GLARGINE (U-100) 100 UNIT/ML* 12/10/2017 Class: Med Update Route: SUBCUTANEOUS Sig: Inject 5 Units subcutaneously daily at bedtime. EPOETIN JOSE 20,000 UNIT/2 ML INJECT* 12/10/2017 Class: Med Update Route: SUBCUTANEOUS Sig: Inject 2 mL subcutaneously once every month. Medications Discontinued During This Encounter citalopram (CELEXA) 40 mg tablet 11/13/2017 12/10/2017 Class: Historical Med Route: ORAL Sig: Take 40 mg by mouth once daily. Disc: Reason for discontinue is not on file. sertraline (ZOLOFT) 50 mg tablet 30 t* 1 10/22/2017 12/10/2017 Route: ORAL Sig: Take 1 tablet by mouth once daily. Disc: Reason for discontinue is not on file. insulin glargine,hum.rec.anlog (LANT* 12/10/2017 Class: Historical Med Route: SUBCUTANEOUS Sig: Inject 7 Units subcutaneously daily at bedtime. Disc: Reason for discontinue is not on file. Encounter Status:Closed by KANNAN GAMBLE MD on 12/15/17 CNPTOUTREACH Observed: 12/10/2017 Status: COMPLETED Source: [place] 12:00 AM [facility] REPOSITORY Patient Outreach (FAMPWS) COLLETTE KELLY ([id number]) 1970 F TRN Date Time Provider Department 12/10/17 TRACEY ARELLANO (ABIGAIL) FAMPWS During your visit today, we recorded the following information about you: Tracey Arellano RN 12/10/2017 1:51 PM Signed PRIMARY CARE COORDINATION INTAKE Provider Action/FYI: FYI Patient identified for Primary Care Coordination from: PCP Referral Active Goals - Current status as of 12/10/2017 at 1:51 PM Most Recent - Address all appropriate HM and disease care gaps - Annual BMP - Annual foot exam - Annual microalbumin - Annual retina exam - Blood Pressure < 130/80 162/86 (12/10/2017) - Confirm medication adherence of all prescribed medications and uses them correctly - HBA1C drawn quarterly - Hemoglobin A1C < 7 - LDL at or below 100 mg/dL or on a high statin - Tobacco cessation - Understands and follows DASH diet - Weight mgmt/activity Health Maintenance Topics with due status: Overdue Topic Date Due HBA1C 11/14/1976 URINE ALBUMIN:CREATININE RATIO 11/14/1981 DILATED RETINAL EXAM 11/14/1981 DIABETIC FOOT EXAM 11/14/1981 ONE PNEUMOVAX PRIOR TO AGE 66 1987 LDL CHOLESTEROL 11/14/1989 ANNUAL PCP TEAM CHRONIC DISEASE VISIT 11/14/1989 BP CONTROLLED (<130/80) 11/14/1989 PAP EVERY 5 YEARS 11/14/2001 HPV EVERY 5 YEARS 11/14/2001 MAMMOGRAM 2011 DTAP,TDAP,TD 11/07/2017 Care Coordination: General Care Coordination (since 09/11/2017) Patient has been identified by name and date of Y Determined High Risk due to High Risk chronic condition; Unplanned Hospitalization in the last 6 months; Polypharmacy ( > 7meds); High Risk medications (anticoagulants, insulin, narcotics, ect.); Advanced/progressive illness; Chronic Symptomatology; Physical limitations; Multiple specialists; Positive depression screening Chronic High Risk conditions Depression Assessment completed with Patient; Spouse or significant other Living arrangement Children; Spouse Support system Family; Rudolph based What is the health status of your caregiver? Fair Are there others that you care for? No (Has one child at home but cares for patient and child) Type of residence Private residence Home care services Yes Home care services Skilled care; PT/OT; Other (Enter Comment) (VETERIN[employer] H[employer] ATTENDANT) Equipment used at home Wheelchair; Walker; Other (Enter Comment) (Peritoneal dialysis equipment, toilet rails) Do you have any assistive devices to help you communicate? No Communication Barriers Visual impairment (Has blurred vision at times due to retinal issues) Have you been in any hospital and/or ED outside the [facility] in the Past 6 months? Yes (Enter Comment) I am convinced of the importance of my prescription medication Agree mostly I worry that my prescription medication will do more harm than good to me Disagree completely I feel financially burdened by my out of pocket expenses for my prescription medication Disagree completely Patient is categorized as Low Risk Experiencing side effects from current medications -- (unsure of side effects) Difficulty keeping appointments No Family aware of the patient's advance care planning wishes No Yazidi or spiritual beliefs that impact treatment No Chronic pain No Advance Directives discussion was initiated with the pt. The following actions were taken Pt not ready, check back at a later date Social Determinants: Education (since 09/11/2017) Who is providing Assessment Info? Caregiver Health Literacy (since 09/11/2017) How often do you need to have someone help you when you read instructions, pamphlets, or other written material from your doctor or pharmacy? 3 (Has visual problems at times) How confident are you filling out medical forms by yourself? 1 How best do you like to receive information? Verbal Resource Strain (since 09/11/2017) In the last 12 months, did you ever eat less than you felt you should because there wasn?t enough money for food? No In the last 12 months, has your [employer] company shut off your service for not paying bills? No Are you worried that in the next 2 months, you may not have stable housing? No Do problems getting child, senior, or adult care make it difficult for you to work or study? No In the last 12 months, have you needed to see a doctor but could not because of cost? No Are you afraid you might be hurt in your apartment building or house? No If you answered ?yes? to any of the previous six questions, would you like to receive assistance with any of these needs? No Are any of your needs urgent? No Depression (since 09/11/2017) Over the past 2 weeks, how often have you felt little interest or pleasure in doing things? Nearly every day Over the past 2 weeks, how often have you felt down, depressed, or hopeless? Nearly every day Diet (since 09/11/2017) Diet: Diabetic diet Physical Activity (since 09/11/2017) Physical Activity Unable to exercise Tobacco Use (since 09/11/2017) Tobacco Outreach -- (smokes 1/2 ppd) Alcohol Use (since 09/11/2017) How often do you have a drink containing alcohol? Never Social Connection and Isolation (since 09/11/2017) Are you now , , , , never or living with a partner? In a typical week, how many times do you talk on the telephone with family, friends, or neighbors? More than 3 times per week How often do you get together with friends or relatives? More than 3 times per week How often do you attend meeting for clubs, rudolph-based organizations, or other social groups? More than 4 times per year Intimate Partner Violence (since 09/11/2017) Has there ever been a time that you had safety concerns? No Stress (since 09/11/2017) Do you feel stress - tense, restless, nervous, or anxious, or unable to sleep at night because your mind is troubled all the time - these days? Very much Food Insecurity (since 09/11/2017) Within the past 12 months, you worried that your food would run out before you got money to buy more. Never true Within the past 12 months, the food you bought just didn't last and you didn't have money to get more. Never true Transportation Needs (since 09/11/2017) In the past 12 months, has lack of transportation kept you from medical appointments or from getting medications? No In the past 12 months, has lack of transportation kept you from meetings, work, or getting things needed for daily living? No Transportation means: Regular Car Activities of Daily Living: Patients can perform the following activities without help: (since 09/11/2017) Dressing No Bathing No Doing laundry No Climbing a flight of stairs No Walking briskly No Instrumental activities of daily living (since 09/11/2017) Do you drive a car? Yes Do you need help from others to take care of things inside the house, for example: laundry, house cleaning, preparing meals? Yes Did you have the help you needed? Yes Do you need help from others with errands outside the house, for example: shopping for groceries or clothes, going medical appointments? Yes Did you have the help you needed? Yes Fall Risk: Fall Risk (since 09/11/2017) One or more falls in the last year: Yes Any near falls in the last year? Yes Advised to use a cane or walker to get around safely: Yes Feels unsteady when walking: Yes Steadies self on furniture while walking at home: Yes Worried about falling: Yes Needs to push with hands when rising from a chair: Yes Has trouble stepping up onto a curb: Yes Often has to vidal to the toilet: No Has lost some feeling in feet: Yes Takes medicine that makes him/her feel lightheaded or more tired than usual: Yes Takes medicine to sleep or improve mood: Yes Fall risk factors: Depression; Foot problems; Psychoactive medications/medications with anticholinergic effects; Visual difficulties ABIGAIL Vila RN 12/10/2017 2:33 PM Signed TRANSITION CARE MANAGEMENT (TCM) INITIAL CONTACT Provider Action/FYI: Saw pt with PCP at office visit Intake completed TC to [facility], asked to fax last visit note TC to Dr. Prieto, oil pit attendant, asked to fax last visit note. [facility] documents received, reviewed and placed on PCP's desk Initial contact with patient post discharge, spoke to patient and caregiver. Patient identified by name and . TRANSITION CARE MANAGEMENT: Date of Outreach: 12/10/2017 Outreach Attempt 1: Contact Made Date of Discharge 12/09/2017 Some recent data might be hidden SUMMARY: -Pt discharged from [facility] on 12/09. [facility] 11/25-12/04 -Follow up appointment on 12/10. -Medication review done by PCP MA. -Admitted for: Acute Respiratory Failure with Hypoxia GI Bleed CONCERNS: Patient and CG very concerned about ability to take care of pt at home. [facility] NEW MEDICATIONS: No discharge medication list MEDS HELD/DISCONTINUED: No discharge medication list BRIEF HOSPITAL COURSE: Pt seen in ED with c/o weakness and reported not feeling well over the past 2 days. Had missed several home dialysis treatments. C/O GARCIA, weakness SOB. Dx leukocytosis and decreased Hgb. Vomiting in ED which was dark and consistent with CG bleed. Required 2 units RBC, intubated and transferred to [facility]. [facility] treated for: Acute Resp Failure, Acute K+ cardiac toxicity, Severe blood loss R/T UGI bleed upon chronic anemia, CRF stage V, Metabloic lactic acidosis and hx of DM and HTN Tracey Arellano RN December 10, 2017 2:26 PM Kannan Gamble MD 12/10/2017 10:00 PM Signed Reviewed. Tracey Arellano RN 12/11/2017 1:51 PM Signed PRIMARY CARE COORDINATION QUICK NOTE Provider Action/FYI Dilated Retinal Exam completed on 10/27/17 by [facility] HTN Retinopathy OU Patient identified by name and date . 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] Prescriptions as of 12/10/2017 Sig: CYCLOBENZAPRINE 5 MG TABLET Take 5 mg by mouth three time* HYDROXYZINE PAMOATE 50 MG CAP* Take 50 mg by mouth four time* SERTRALINE 100 MG TABLET Take 1 tablet by mouth once d* INSULIN GLARGINE (U-100) 100 * Inject 5 Units subcutaneously* PANTOPRAZOLE 40 MG TABLET,DEL* Take 40 mg by mouth twice kailash* EPOETIN JOSE 20,000 UNIT/2 ML* Inject 2 mL subcutaneously on* ACETAMINOPHEN 325 MG CAPSULE Take by mouth every 4 hours a* GENTAMICIN 0.1 % TOPICAL CREAM HUMALOG KWIKPEN (U-100) INSUL* SEVELAMER HCL 800 MG TABLET Take 800 mg by mouth three ti* CYCLOBENZAPRINE 10 MG TABLET Take 1 tablet by mouth three * PREDNISONE 20 MG TABLET Take 1 tablet by mouth once d* Patient not taking: Reported on 12/10/2017 CYCLOBENZAPRINE ORAL Take 5 mg by mouth three time* CLONIDINE HCL 0.1 MG TABLET 1 tablet four times daily. Patient not taking: Reported on 12/10/2017 AMLODIPINE 10 MG TABLET 1 tablet once daily. 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 RX 1 MG-60 MG-300 MCG* Problem List As Of Date 12/10/2017 Noted Resolved ESRD (end stage renal disease) (HCC) [N18.6] INVALID FOR* More... Multiple gastric ulcers [K25.9] Anxiety [F41.9] Depression [F32.9] Encounter Status:Closed by TRACEY ARELLANO on 12/11/17 CMP WITH EGFR Collected: 12/05/2017 Status: F Source: [place] 5:[address] [facility] REPOSITORY TYPE CODE TESTS RESULT OUT OF RANGE REFERENCE UNITS LAB CMP with eGFR(LOINC) CMP with eGFR Result Comment: COMPREHENSIVE METABOLIC PANEL LAB SODIUM(LOINC) 136 - 145 mmol/l SODIUM Low 130 LAB POTASSIUM(LOINC) 3.5 - 5.1 mmol/L POTASSIUM 3.8 LAB CHLORIDE(LOINC) 98 - 107 mmol/L CHLORIDE Low 89 LAB CO2(LOINC) 21.0 - mmol/L 31.0 CO2 21.8 LAB GLUCOSE(LOINC) 74 - 106 mg/dl GLUCOSE High 299 LAB BUN(LOINC) 6 - 20 mg/dl BUN High 52 LAB CREATININE(LOINC) 0.6 - 1.2 mg/dl High CREATININE 8.9 LAB AST/SGOT(LOINC) 13 - 39 U/L AST/SGOT 16 LAB ALK PHOS(LOINC) 38 - 126 U/L ALK PHOS High 137 LAB CALCIUM(LOINC) 8.6 - mg/dl 10.2 CALCIUM Low 7.5 LAB TOTAL 6.4 - 8.3 g/dl PROTEIN(LOINC) TOTAL Low PROTEIN 6.3 LAB ALBUMIN(LOINC) 3.4 - 4.8 g/dL ALBUMIN Low 2.5 LAB GLOBULIN(LOINC) 1.5 - 3.8 G/DL GLOBULIN 3.8 LAB A/G RATIO(LOINC) 0.9 - 1.6 A/G Low RATIO 0.7 LAB TOTAL BILI(LOINC) 0.0 - 1.5 mg/dl TOTAL BILI 0.3 LAB B/C RATIO(LOINC) 0 - 30 ratio B/C RATIO 6 LAB ALT/SGPT(LOINC) 8 - 35 U/L ALT/SGPT 29 LAB ANION GAP(LOINC) 10 - 20 mmol/L ANION High GAP 23 LAB AGE(LOINC) years AGE 47 LAB eGFR(LOINC) 60 - 999 ML/MINUTE eGFR Low 5 LAB eGFR(AA)(LOINC) 60 - 999 ML/MINUTE eGFR(AA) Low 6 Result Comment: ACCORDING TO THE NATIONAL KIDNEY DISEASE EDUCATION PROGRAM(NKDE), A NORMAL eGFR IS A VALUE GREATER THAN OR EQUAL TO 60 ML/MIN/1.73 SQ METERS. CHRONIC KIDNEY DISEASE: <60mL/MIN/1.73 SQ METERS KIDNEY FAILURE: <15mL/MIN/1.73 SQ METERS THIS TEST SHOULD ONLY BE USED FOR PATIENTS 18 YEARS OF AGE AND OLDER. Performed By: #### [id number] #### [address] [address] CBC (NO DIFF) Collected: 12/05/2017 Status: F Source: [facility] 5:[address] [facility] REPOSITORY TYPE CODE TESTS RESULT OUT OF RANGE REFERENCE UNITS LAB CBC (NO DIFF)(LOINC ) CBC (NO DIFF) Result Comment: CBC(WITHOUT DIFFERENTIAL) LAB WBC(LOINC) 4.5 - 10.8 x 10EE3/UL WBC High 13.4 LAB RBC(LOINC) 4.10 - x 10EE6/UL 5.30 RBC Low 3.26 LAB HEMOGLOBIN(LOINC 12.0 - g/dl ) 16.0 Low HEMOGLOBIN 10.2 LAB HEMATOCRIT(LOINC 34.0 - % ) 46.0 Low HEMATOCRIT 28.2 LAB MCV(LOINC) 80 - 99 fl MCV 86 LAB MCH(LOINC) 27 - 33 pg MCH 31 LAB MCHC(LOINC) 32 - 36 X10 3 MCHC 36 LAB RDW/CV(LOINC) 12.0 - % 15.6 RDW/CV 14.0 LAB PLATELET(LOINC) 150 - 450 x10EE3/UL PLATELET 416 LAB MPV(LOINC) 6.6 - 10.5 fl MPV 7.4 Result Comment: {CB] Performed By: #### [id number] #### [address] [address] HGB A1C Collected: 12/05/2017 Status: F Source: [facility] 5:[address] [facility] REPOSITORY TYPE CODE TESTS RESULT OUT OF RANGE REFERENCE UNITS LAB HGB 4.4 - 6.4 % A1C(LOINC) HGB A1C 5.8 Result Comment: {HB] {A1] Performed By: #### [id number] #### [address] [address] HH Collected: 12/04/2017 Status: F Source: [facility] 10:55 AM [facility] REPOSITORY TYPE CODE TESTS RESULT OUT OF RANGE REFERENCE UNITS LAB HGB(LOINC) 12.0-16.0 G/dL Low Hgb 10.9 LAB HCT(LOINC) 34.0-46.0 % Low Hct 31.3 Performed By: #### HH #### [address] [id number] CBC Collected: 12/04/2017 Status: F Source: [facility] 6:40 AM [facility] REPOSITORY TYPE CODE TESTS RESULT OUT OF REFERENCE UNITS RANGE LAB WBC(LOINC) 4.50-10.80 10 3/mcL High WBC 12.50 LAB RBCCT(LOINC 4.10-5.30 10 6/mcL ) Low RBC 3.46 LAB HGB(LOINC) 12.0-16.0 G/dL Low Hgb 10.4 LAB HCT(LOINC) 34.0-46.0 % Low Hct 30.0 LAB MCV(LOINC) 80.0-99.0 fL MCV 86.7 LAB MCH(LOINC) 27.0-33.0 pg MCH 30.0 LAB MCHC(LOINC) 32.0-36.0 G/dL MCHC 34.6 LAB RDW(LOINC) 11.5-15.5 % RDW 13.9 LAB PLT(LOINC) 150-450 10 3/mcL Platelet 385 LAB MPV(LOINC) 6.6-10.5 fL MPV 7.3 Performed By: #### CBC, ADIFF, ANEU, MG, BMP, GFR, HFP #### [address] [address] .AUTO DIFF Collected: 12/04/2017 Status: F Source: [facility] 6:40 AM [facility] REPOSITORY TYPE CODE TESTS RESULT OUT OF REFERENCE UNITS RANGE LAB CAITLYN(LOINC) 50.0-75.0 % High Neutrophil % 81.4 LAB LYM(LOINC) 20.0-40.0 % Low Lymphocyte % 9.8 LAB MON(LOINC) 2.0-13.0 % Monocyte % 6.3 LAB EO(LOINC) 0.0-6.0 % Eosinophil % 1.9 LAB BAS(LOINC) 0.0-2.5 % Basophil % 0.6 LAB ABLYM(LOIN 0.90-4.32 10 3/mcL C) Lymphocyte, 1.20 Absolute LAB MAHAD(LOINC 0.09-1.40 10 3/mcL ) Monocyte, 0.80 Absolute LAB AEOS(LOINC 0.00-0.65 10 3/mcL ) Eosinophil, 0.20 Absolute LAB ABAS(LOINC 0.00-0.27 10 3/mcL ) Basophil, 0.10 Absolute Performed By: #### CBC, ADIFF, ANEU, MG, BMP, GFR, HFP #### [place] [address] .NEUABS Collected: 12/04/2017 Status: F Source: [facility] 6:40 AM [facility] REPOSITORY TYPE CODE TESTS RESULT OUT OF REFERENCE UNITS RANGE LAB ANEU(LOINC) 2.25-8.10 10 3/mcL High Neutrophil, 10.20 Absolute Performed By: #### CBC, ADIFF, ANEU, MG, BMP, GFR, HFP #### [place] [address] MG Collected: 12/04/2017 Status: F Source: [facility] 6:40 AM [facility] REPOSITORY TYPE CODE TESTS RESULT OUT OF REFERENCE UNITS RANGE LAB MG(LOINC) 1.6-2.4 mg/dL High Magnesium Lvl 2.6 Performed By: #### CBC, ADIFF, ANEU, MG, BMP, GFR, HFP #### [place] [address] BMP Collected: 12/04/2017 Status: F Source: [facility] 6:40 AM [facility] REPOSITORY TYPE CODE TESTS RESULT OUT OF REFERENCE UNITS RANGE LAB GLU(LOINC) 70-110 mg/dL Glucose High Level 232 LAB NA(LOINC) 136-145 mEq/L Low Sodium Level 134 LAB K(LOINC) 3.5-5.0 mEq/L Potassium Level 4.0 LAB CL(LOINC) 98-110 mEq/L Low Chloride 91 LAB CO2(LOINC) 22-32 mEq/L Low CO2 21 LAB EBAL(LOINC 4.0-15.0 mEq/L ) Electrolyte High Balance 22.0 LAB BUN(LOINC) 8.0-22.0 mg/dL BUN High 53.0 LAB CRE(LOINC) 0.50-1.20 mg/dL Creatinine High Lvl (s) 8.74 LAB BC(LOINC) 10.0-22.0 ratio Low BUN/Creatinine 6.1 Ratio LAB CA(LOINC) 8.4-10.1 mg/dL Low Calcium Lvl 7.1 Performed By: #### CBC, ADIFF, ANEU, MG, BMP, GFR, HFP #### [address] [address] .GFR Collected: 12/04/2017 Status: F Source: [place] [facility] 6:40 AM [facility] REPOSITORY TYPE CODE TESTS RESULT OUT OF REFERENCE UNITS RANGE LAB GFRAA(LOINC ml/min/1.73 ) sqm GFR 6 Haitian Result Comment: GFR Population mean for , Non- Americans Ages 20-29 = 116 mL/min/1.73 sq.m. Ages 30-39 = 107 mL/min/1.73 sq.m. Ages 40-49 = 99 mL/min/1.73 sq.m. Ages 50-59 = 93 mL/min/1.73 sq.m. Ages 60-69 = 85 mL/min/1.73 sq.m. Ages 70+ = 75 mL/min/1.73 sq.m. Chronic Kidney Disease: Less than 60 mL/min/1.73 square meters End Stage Renal Disease: Less than 15 mL/min/1.73 square meters LAB GFRNO(LOINC) ml/min/1.73sqm GFR Non- 5 Result Comment: GFR Population mean for , Non- Americans Ages 20-29 = 116 mL/min/1.73 sq.m. Ages 30-39 = 107 mL/min/1.73 sq.m. Ages 40-49 = 99 mL/min/1.73 sq.m. Ages 50-59 = 93 mL/min/1.73 sq.m. Ages 60-69 = 85 mL/min/1.73 sq.m. Ages 70+ = 75 mL/min/1.73 sq.m. Chronic Kidney Disease: Less than 60 mL/min/1.73 square meters End Stage Renal Disease: Less than 15 mL/min/1.73 square meters Performed By: #### CBC, ADIFF, ANEU, MG, BMP, GFR, HFP #### [address] [address] HFP Collected: 12/04/2017 Status: F Source: [facility] 6:40 AM [facility] REPOSITORY TYPE CODE TESTS RESULT OUT OF REFERENCE UNITS RANGE LAB PROT(LOINC) 6.0-8.5 G/dL Low Total Protein 5.5 LAB ALB(LOINC) 3.2-4.8 G/dL Low Albumin Level 1.6 LAB GLB(LOINC) 1.5-3.8 G/dL High Globulin 3.9 LAB AG(LOINC) 0.9-1.6 ratio Low A/G Ratio 0.4 LAB BILT(LOINC) 0.2-1.2 mg/dL Bili Total 0.4 LAB BILAD(LOINC 0.0-0.4 mg/dL ) Bili Direct 0.2 LAB BILI(LOINC) 0.1-10.0 mg/dL Bili Indirect 0.2 Result Comment: Calculation Performed by Rule LAB AP(LOINC) 38-126 U/L High Alk Phos 150 LAB AST(LOINC) 8-34 U/L AST/SGOT 22 LAB ALT(INC) 10-49 U/L ALT/SGPT 40 Performed By: #### CBC, ADIFF, ANEU, MG, BMP, GFR, HFP #### [place] [address] HH Collected: 12/04/2017 Status: F Source: [facility] 1:08 AM [facility] REPOSITORY TYPE CODE TESTS RESULT OUT OF RANGE REFERENCE UNITS LAB HGB(LOINC) 12.0-16.0 G/dL Low Hgb 10.1 LAB HCT(LOINC) 34.0-46.0 % Low Hct 29.6 Performed By: #### HH #### [place] [address] TABO Collected: 12/03/2017 Status: F Source: [facility] 2:02 PM [facility] REPOSITORY TYPE CODE TESTS RESULT OUT OF RANGE REFERENCE UNITS LAB ABORH([facility] ) Unknown ABO/Rh B NEG Interp Performed By: #### ABORH, ANTIS #### [place] [address] TABS Collected: 12/03/2017 Status: F Source: [facility] 2:02 PM [facility] REPOSITORY TYPE CODE TESTS RESULT OUT OF REFERENCE UNITS RANGE LAB ANST(LOINC ) Antibody Negative ABSC Screen Tango Performed By: #### ABORH, ANTIS #### [place] [id number] RBC (PRODUCT) Collected: 12/03/2017 Status: F Source: [facility] 12:19 PM [facility] REPOSITORY TYPE CODE TESTS RESULT OUT OF REFERENCE UNITS RANGE LAB RBCPR(LOINC ) RBC Product RBC Ready Ready for Pickup Performed By: #### RBCP #### [place] [address] RBC (PRODUCT) Collected: 12/03/2017 Status: F Source: [facility] 11:27 AM [facility] REPOSITORY TYPE CODE TESTS RESULT OUT OF REFERENCE UNITS RANGE LAB RBCPR(LOINC ) RBC Product RBC Ready Ready for Pickup Performed By: #### RBCP #### [place] [address] HH Collected: 12/03/2017 Status: F Source: [facility] 9:23 AM [facility] REPOSITORY TYPE CODE TESTS RESULT OUT OF RANGE REFERENCE UNITS LAB HGB(LOINC) 12.0-16.0 G/dL Low Hgb 7.8 LAB HCT(LOINC) 34.0-46.0 % Low Hct 23.0 Performed By: #### HH #### [place] [address] MG Collected: 12/03/2017 Status: F Source: [facility] 7:27 AM [facility] REPOSITORY TYPE CODE TESTS RESULT OUT OF REFERENCE UNITS RANGE LAB MG(LOINC) 1.6-2.4 mg/dL High Magnesium Lvl 2.5 Performed By: #### MG, CMP, GFR, BILAD #### [place] [address] CMP Collected: 12/03/2017 Status: F Source: [facility] 7:27 AM [facility] REPOSITORY TYPE CODE TESTS RESULT OUT OF REFERENCE UNITS RANGE LAB GLU(LOINC) 70-110 mg/dL Glucose High Level 212 LAB NA(LOINC) 136-145 mEq/L Low Sodium Level 134 LAB K(LOINC) 3.5-5.0 mEq/L Potassium Level 3.8 LAB CL(LOINC) 98-110 mEq/L Low Chloride 92 LAB CO2(LOINC) 22-32 mEq/L CO2 23 LAB EBAL(LOINC 4.0-15.0 mEq/L ) Electrolyte High Balance 19.0 LAB BUN(LOINC) 8.0-22.0 mg/dL BUN High 56.0 LAB CRE(LOINC) 0.50-1.20 mg/dL Creatinine High Lvl (s) 9.04 LAB BC(LOINC) 10.0-22.0 ratio Low BUN/Creatinine 6.2 Ratio LAB CA(LOINC) 8.4-10.1 mg/dL Low Calcium Lvl 7.1 LAB PROT(LOINC 6.0-8.5 G/dL ) Low Total Protein 4.9 LAB ALB(LOINC) 3.2-4.8 G/dL Low Albumin Level 1.5 LAB GLB(LOINC) 1.5-3.8 G/dL Globulin 3.4 LAB AG(LOINC) 0.9-1.6 ratio Low A/G Ratio 0.4 LAB BILT(LOINC 0.2-1.2 mg/dL ) Bili Total 0.3 LAB AP(LOINC) 38-126 U/L Alk Phos High 129 LAB AST(LOINC) 8-34 U/L AST/SGOT 17 LAB ALT(LOINC) 10-49 U/L ALT/SGPT 38 Performed By: #### MG, CMP, GFR, BILAD #### [place] [address] .GFR Collected: 12/03/2017 Status: F Source: [facility] 7:27 AM [facility] REPOSIT[facility] TYPE CODE TESTS RESULT OUT OF REFERENCE UNITS RANGE LAB GFRAA(LOINC ml/min/1.73 ) sqm GFR 6 Haitian Result Comment: GFR Population mean for , Non- Americans Ages 20-29 = 116 mL/min/1.73 sq.m. Ages 30-39 = 107 mL/min/1.73 sq.m. Ages 40-49 = 99 mL/min/1.73 sq.m. Ages 50-59 = 93 mL/min/1.73 sq.m. Ages 60-69 = 85 mL/min/1.73 sq.m. Ages 70+ = 75 mL/min/1.73 sq.m. Chronic Kidney Disease: Less than 60 mL/min/1.73 square meters End Stage Renal Disease: Less than 15 mL/min/1.73 square meters LAB GFRNO(LOINC) ml/min/1.73sqm GFR Non- 5 Result Comment: GFR Population mean for , Non- Americans Ages 20-29 = 116 mL/min/1.73 sq.m. Ages 30-39 = 107 mL/min/1.73 sq.m. Ages 40-49 = 99 mL/min/1.73 sq.m. Ages 50-59 = 93 mL/min/1.73 sq.m. Ages 60-69 = 85 mL/min/1.73 sq.m. Ages 70+ = 75 mL/min/1.73 sq.m. Chronic Kidney Disease: Less than 60 mL/min/1.73 square meters End Stage Renal Disease: Less than 15 mL/min/1.73 square meters Performed By: #### MG, CMP, GFR, BILAD #### [place] [id number] BILAD Collected: 12/03/2017 Status: F Source: [facility] 7:27 AM [facility] REPOSITORY TYPE CODE TESTS RESULT OUT OF REFERENCE UNITS RANGE LAB BILAD(LOINC 0.0-0.4 mg/dL ) Bili Direct 0.1 Performed By: #### MG, CMP, GFR, BILAD #### [place] [address] CBC Collected: 12/03/2017 Status: F Source: [facility] 7:27 AM [facility] REPOSITORY TYPE CODE TESTS RESULT OUT OF REFERENCE UNITS RANGE LAB WBC(LOINC) 4.50-10.80 10 3/mcL High WBC 15.00 LAB RBCCT(LOINC 4.10-5.30 10 6/mcL ) Low RBC 2.42 LAB HGB(LOINC) 12.0-16.0 G/dL Low Hgb 7.3 LAB HCT(LOINC) 34.0-46.0 % Low Hct 21.4 LAB MCV(LOINC) 80.0-99.0 fL MCV 88.5 LAB MCH(LOINC) 27.0-33.0 pg MCH 30.2 LAB MCHC(LOINC) 32.0-36.0 G/dL MCHC 34.1 LAB RDW(LOINC) 11.5-15.5 % RDW 14.7 LAB PLT(LOINC) 150-450 10 3/mcL Platelet 362 LAB MPV(LOINC) 6.6-10.5 fL MPV 7.3 Performed By: #### CBC, DIFF, MORPH #### [address] [address] .MANUAL DIFF Collected: 12/03/2017 Status: F Source: [facility] 7:27 AM [facility] REPOSITORY TYPE CODE TESTS RESULT OUT OF REFERENCE UNITS RANGE LAB LIMIT(LOIN C) Cells Counted 100 LAB NEUM(LOINC 50.0-75.0 % ) High Neutrophil %, 84.0 Manual LAB LYMM(LOINC 20.0-40.0 % ) Low Lymphocyte %, 13.0 Manual LAB MONM(LOINC 2.0-13.0 % ) Low Monocyte %, Manual 0.0 LAB EOM(LOINC) 0.0-6.0 % Eosinophil %, 1.0 Manual LAB BASM(LOINC 0.0-2.5 % ) Basophil %, Manual 1.0 LAB BAND(LOINC 0.0-5.0 % ) Bands 1.0 LAB ANEUM(LOIN 2.25-8.10 10 3/mcL C) High Neutrophil, Abs 12.75 Manual LAB ABLYMM(LIZETT 0.90-4.32 10 3/mcL NC) Lymphocyte, Abs 1.95 Manual LAB AMONM(LOIN 0.09-1.40 10 3/mcL C) Low Monocyte, Abs 0.00 Manual LAB AEOSM(LOIN 0.00-0.65 10 3/mcL C) Eosinophil, Abs 0.15 Manual LAB ABASM(LOIN 0.00-0.27 10 3/mcL C) Basophil, Abs 0.15 Manual Performed By: #### CBC, DIFF, MORPH #### [place] [id number] .MORPH Collected: 12/03/2017 Status: F Source: [facility] 7:27 AM [facility] REPOSITORY TYPE CODE TESTS RESULT OUT OF REFERENCE UNITS RANGE LAB PLTE(LOINC ) Platelet Normal Estimate LAB RBCM(LOINC ) RBC Morph Normal LAB POLC(LOINC ) Polychrom Slight Performed By: #### CBC, DIFF, MORPH #### [place] [id number] HH Collected: 12/02/2017 Status: F Source: [facility] 10:42 PM [facility] REPOSITORY TYPE CODE TESTS RESULT OUT OF RANGE REFERENCE UNITS LAB HGB(LOINC) 12.0-16.0 G/dL Low Hgb 9.2 LAB HCT(LOINC) 34.0-46.0 % Low Hct 26.8 Performed By: #### HH #### [address] [address] HH Collected: 12/02/2017 Status: F Source: [facility] 4:53 PM [facility] REPOSITORY TYPE CODE TESTS RESULT OUT OF RANGE REFERENCE UNITS LAB HGB(LOINC) 12.0-16.0 G/dL Low Hgb 8.1 LAB HCT(LOINC) 34.0-46.0 % Low Hct 23.3 Performed By: #### HH #### [address] [address] HH Collected: 12/02/2017 Status: F Source: [facility] 10:38 AM [facility] REPOSITORY TYPE CODE TESTS RESULT OUT OF RANGE REFERENCE UNITS LAB HGB(LOINC) 12.0-16.0 G/dL Low Hgb 8.2 LAB HCT(LOINC) 34.0-46.0 % Low Hct 23.4 Performed By: #### HH #### [place] [address] CBC Collected: 12/02/2017 Status: F Source: [facility] 2:33 AM [facility] REPOSITORY TYPE CODE TESTS RESULT OUT OF REFERENCE UNITS RANGE LAB WBC(LOINC) 4.50-10.80 10 3/mcL High WBC 14.00 LAB RBCCT(LOINC 4.10-5.30 10 6/mcL ) Low RBC 2.39 LAB HGB(LOINC) 12.0-16.0 G/dL Low Hgb 7.2 LAB HCT(LOINC) 34.0-46.0 % Low Hct 20.8 LAB MCV(LOINC) 80.0-99.0 fL MCV 87.4 LAB MCH(LOINC) 27.0-33.0 pg MCH 30.0 LAB MCHC(LOINC) 32.0-36.0 G/dL MCHC 34.4 LAB RDW(LOINC) 11.5-15.5 % RDW 14.6 LAB PLT(LOINC) 150-450 10 3/mcL Platelet 308 LAB MPV(LOINC) 6.6-10.5 fL MPV 7.2 Performed By: #### CBC, ADIFF, ANEU, BMP, MG, GFR, HFP #### [place] [id number] .AUTO DIFF Collected: 12/02/2017 Status: F Source: [facility] 2:33 AM [facility] REPOSITORY TYPE CODE TESTS RESULT OUT OF REFERENCE UNITS RANGE LAB CAITLYN(LOINC) 50.0-75.0 % High Neutrophil % 76.6 LAB LYM(LOINC) 20.0-40.0 % Low Lymphocyte % 12.2 LAB MON(LOINC) 2.0-13.0 % Monocyte % 8.1 LAB EO(LOINC) 0.0-6.0 % Eosinophil % 2.4 LAB BAS(LOINC) 0.0-2.5 % Basophil % 0.7 LAB ABLYM(LOIN 0.90-4.32 10 3/mcL C) Lymphocyte, 1.70 Absolute LAB MAHAD(LOINC 0.09-1.40 10 3/mcL ) Monocyte, 1.10 Absolute LAB AEOS(LOINC 0.00-0.65 10 3/mcL ) Eosinophil, 0.30 Absolute LAB ABAS(LOINC 0.00-0.27 10 3/mcL ) Basophil, 0.10 Absolute Performed By: #### CBC, ADIFF, ANEU, BMP, MG, GFR, HFP #### [place] [id number] .NEUABS Collected: 12/02/2017 Status: F Source: [facility] 2:33 AM [facility] REPOSITORY TYPE CODE TESTS RESULT OUT OF REFERENCE UNITS RANGE LAB ANEU(LOINC) 2.25-8.10 10 3/mcL High Neutrophil, 10.70 Absolute Performed By: #### CBC, ADIFF, ANEU, BMP, MG, GFR, HFP #### [place] [address] BMP Collected: 12/02/2017 Status: F Source: [facility] 2:33 AM [facility] REPOSITORY TYPE CODE TESTS RESULT OUT OF REFERENCE UNITS RANGE LAB GLU(LOINC) 70-110 mg/dL Glucose High Level 168 LAB NA(LOINC) 136-145 mEq/L Low Sodium Level 135 LAB K(LOINC) 3.5-5.0 mEq/L Potassium Level 3.9 LAB CL(LOINC) 98-110 mEq/L Low Chloride 92 LAB CO2(LOINC) 22-32 mEq/L Low CO2 20 LAB EBAL(LOINC 4.0-15.0 mEq/L ) Electrolyte High Balance 23.0 LAB BUN(LOINC) 8.0-22.0 mg/dL BUN High 67.0 LAB CRE(LOINC) 0.50-1.20 mg/dL Creatinine High Lvl (s) 8.98 LAB BC(LOINC) 10.0-22.0 ratio Low BUN/Creatinine 7.5 Ratio LAB CA(LOINC) 8.4-10.1 mg/dL Low Calcium Lvl 7.0 Performed By: #### CBC, ADIFF, ANEU, BMP, MG, GFR, HFP #### [place] [address] MG Collected: 12/02/2017 Status: F Source: [facility] 2:33 AM [facility] REPOSITORY TYPE CODE TESTS RESULT OUT OF REFERENCE UNITS RANGE LAB MG(LOINC) 1.6-2.4 mg/dL High Magnesium Lvl 2.5 Performed By: #### CBC, ADIFF, ANEU, BMP, MG, GFR, HFP #### [address] [address] .GFR Collected: 12/02/2017 Status: F Source: [facility] 2:33 AM [facility] REPOSITORY TYPE CODE TESTS RESULT OUT OF REFERENCE UNITS RANGE LAB GFRAA(LOINC ml/min/1.73 ) sqm GFR 6 Haitian Result Comment: GFR Population mean for , Non- Americans Ages 20-29 = 116 mL/min/1.73 sq.m. Ages 30-39 = 107 mL/min/1.73 sq.m. Ages 40-49 = 99 mL/min/1.73 sq.m. Ages 50-59 = 93 mL/min/1.73 sq.m. Ages 60-69 = 85 mL/min/1.73 sq.m. Ages 70+ = 75 mL/min/1.73 sq.m. Chronic Kidney Disease: Less than 60 mL/min/1.73 square meters End Stage Renal Disease: Less than 15 mL/min/1.73 square meters LAB GFRNO(LOINC) ml/min/1.73sqm GFR Non- 5 Result Comment: GFR Population mean for , Non- Americans Ages 20-29 = 116 mL/min/1.73 sq.m. Ages 30-39 = 107 mL/min/1.73 sq.m. Ages 40-49 = 99 mL/min/1.73 sq.m. Ages 50-59 = 93 mL/min/1.73 sq.m. Ages 60-69 = 85 mL/min/1.73 sq.m. Ages 70+ = 75 mL/min/1.73 sq.m. Chronic Kidney Disease: Less than 60 mL/min/1.73 square meters End Stage Renal Disease: Less than 15 mL/min/1.73 square meters Performed By: #### CBC, ADIFF, ANEU, BMP, MG, GFR, HFP #### [address] [address] HFP Collected: 12/02/2017 Status: F Source: [facility] 2:33 AM [facility] REPOSITORY TYPE CODE TESTS RESULT OUT OF REFERENCE UNITS RANGE LAB PROT(LOINC) 6.0-8.5 G/dL Low Total Protein 4.6 LAB ALB(LOINC) 3.2-4.8 G/dL Low Albumin Level 1.5 LAB GLB(LOINC) 1.5-3.8 G/dL Globulin 3.1 LAB AG(LOINC) 0.9-1.6 ratio Low A/G Ratio 0.5 LAB BILT(LOINC) 0.2-1.2 mg/dL Bili Total 0.4 LAB BILAD(LOINC 0.0-0.4 mg/dL ) Bili Direct 0.2 LAB BILI(LOINC) 0.1-10.0 mg/dL Bili Indirect 0.2 Result Comment: Calculation Performed by Rule LAB AP(LOINC) 38-126 U/L Alk Phos 125 LAB AST(LOINC) 8-34 U/L AST/SGOT 16 LAB ALT(LOINC) 10-49 U/L ALT/SGPT 40 Performed By: #### CBC, ADIFF, ANEU, BMP, MG, GFR, HFP #### [address] [address] RBC (PRODUCT) Collected: 12/01/2017 Status: F Source: [facility] 8:04 PM [facility] RE[facility] TYPE CODE TESTS RESULT OUT OF REFERENCE UNITS RANGE LAB RBCPR(LOINC ) RBC Product RBC Ready Ready for Pickup Performed By: #### RBCP #### [place] [address] HH Collected: 12/01/2017 Status: F Source: [facility] 6:59 PM [facility] REPOSITORY TYPE CODE TESTS RESULT OUT OF RANGE REFERENCE UNITS LAB HGB(LOINC) 12.0-16.0 G/dL Abnormal Alert Hgb 6.2 Result Comment: Microtainer specimen LAB HCT(LOINC) 34.0-46.0 % Low Hct 18.0 Performed By: #### HH #### [address] Collected: 12/01/2017 Status: F Source: [facility] 11:37 AM [facility] REPOSITORY TYPE CODE TESTS RESULT OUT OF RANGE REFERENCE UNITS LAB HGB(LOINC) 12.0-16.0 G/dL Low Hgb 7.3 LAB HCT(LOINC) 34.0-46.0 % Low Hct 20.9 Performed By: #### HH #### [place] [address] CBC Collected: 12/01/2017 Status: F Source: [facility] 6:21 AM [facility] REPOSITORY TYPE CODE TESTS RESULT OUT OF REFERENCE UNITS RANGE LAB WBC(LOINC) 4.50-10.80 10 3/mcL High WBC 13.70 LAB RBCCT(LOINC 4.10-5.30 10 6/mcL ) Low RBC 2.36 LAB HGB(LOINC) 12.0-16.0 G/dL Low Hgb 7.1 LAB HCT(LOINC) 34.0-46.0 % Low Hct 20.9 LAB MCV(LOINC) 80.0-99.0 fL MCV 88.5 LAB MCH(LOINC) 27.0-33.0 pg MCH 30.2 LAB MCHC(LOINC) 32.0-36.0 G/dL MCHC 34.1 LAB RDW(LOINC) 11.5-15.5 % RDW 15.2 LAB PLT(LOINC) 150-450 10 3/mcL Platelet 355 LAB MPV(LOINC) 6.6-10.5 fL MPV 7.6 Performed By: #### CBC, MG, BMP, GFR, HFP, DIFF, MORPH #### [address] [address] MG Collected: 12/01/2017 Status: F Source: [facility] 6:21 AM [facility] REPOSITORY TYPE CODE TESTS RESULT OUT OF REFERENCE UNITS RANGE LAB MG(LOINC) 1.6-2.4 mg/dL High Magnesium Lvl 2.7 Performed By: #### CBC, MG, BMP, GFR, HFP, DIFF, MORPH #### [address] [id number] BMP Collected: 12/01/2017 Status: F Source: [facility] 6:21 AM [facility] REPOSITORY TYPE CODE TESTS RESULT OUT OF REFERENCE UNITS RANGE LAB GLU(LOINC) 70-110 mg/dL Glucose High Level 336 LAB NA(LOINC) 136-145 mEq/L Low Sodium Level 135 LAB K(LOINC) 3.5-5.0 mEq/L Potassium Level 4.0 LAB CL(LOINC) 98-110 mEq/L Low Chloride 91 LAB CO2(LOINC) 22-32 mEq/L CO2 22 LAB EBAL(LOINC 4.0-15.0 mEq/L ) Electrolyte High Balance 22.0 LAB BUN(LOINC) 8.0-22.0 mg/dL BUN High 70.0 LAB CRE(LOINC) 0.50-1.20 mg/dL Creatinine High Lvl (s) 8.99 LAB BC(LOINC) 10.0-22.0 ratio Low BUN/Creatinine 7.8 Ratio LAB CA(LOINC) 8.4-10.1 mg/dL Low Calcium Lvl 7.3 Performed By: #### CBC, MG, BMP, GFR, HFP, DIFF, MORPH #### [address] [address] .GFR Collected: 12/01/2017 Status: F Source: [facility] 6:21 AM [facility] REPOSITORY TYPE CODE TESTS RESULT OUT OF REFERENCE UNITS RANGE LAB GFRAA(LOINC ml/min/1.73 ) sqm GFR 6 Haitian Result Comment: GFR Population mean for , Non- Americans Ages 20-29 = 116 mL/min/1.73 sq.m. Ages 30-39 = 107 mL/min/1.73 sq.m. Ages 40-49 = 99 mL/min/1.73 sq.m. Ages 50-59 = 93 mL/min/1.73 sq.m. Ages 60-69 = 85 mL/min/1.73 sq.m. Ages 70+ = 75 mL/min/1.73 sq.m. Chronic Kidney Disease: Less than 60 mL/min/1.73 square meters End Stage Renal Disease: Less than 15 mL/min/1.73 square meters LAB GFRNO(LOINC) ml/min/1.73sqm GFR Non- 5 Result Comment: GFR Population mean for , Non- Americans Ages 20-29 = 116 mL/min/1.73 sq.m. Ages 30-39 = 107 mL/min/1.73 sq.m. Ages 40-49 = 99 mL/min/1.73 sq.m. Ages 50-59 = 93 mL/min/1.73 sq.m. Ages 60-69 = 85 mL/min/1.73 sq.m. Ages 70+ = 75 mL/min/1.73 sq.m. Chronic Kidney Disease: Less than 60 mL/min/1.73 square meters End Stage Renal Disease: Less than 15 mL/min/1.73 square meters Performed By: #### CBC, MG, BMP, GFR, HFP, DIFF, MORPH #### [place] [id number] HFP Collected: 12/01/2017 Status: F Source: [facility] 6:21 AM [facility] REPOSITORY TYPE CODE TESTS RESULT OUT OF REFERENCE UNITS RANGE LAB PROT(LOINC) 6.0-8.5 G/dL Low Total Protein 4.8 LAB ALB(LOINC) 3.2-4.8 G/dL Low Albumin Level 1.5 LAB GLB(LOINC) 1.5-3.8 G/dL Globulin 3.3 LAB AG(LOINC) 0.9-1.6 ratio Low A/G Ratio 0.5 LAB BILT(LOINC) 0.2-1.2 mg/dL Bili Total 0.4 LAB BILAD(LOINC 0.0-0.4 mg/dL ) Bili Direct 0.2 LAB BILI(LOINC) 0.1-10.0 mg/dL Bili Indirect 0.2 Result Comment: Calculation Performed by Rule LAB AP(LOINC) 38-126 U/L High Alk Phos 145 LAB AST(LOINC) 8-34 U/L AST/SGOT 17 LAB ALT(LOINC) 10-49 U/L ALT/SGPT 43 Performed By: #### CBC, MG, BMP, GFR, HFP, DIFF, MORPH #### [address] [id number] .MANUAL DIFF Collected: 12/01/2017 Status: F Source: [facility] 6:21 AM [facility] REPOSITORY TYPE CODE TESTS RESULT OUT OF REFERENCE UNITS RANGE LAB LIMIT(LOIN C) Cells Counted 100 LAB NEUM(LOINC 50.0-75.0 % ) High Neutrophil %, 89.0 Manual LAB LYMM(LOINC 20.0-40.0 % ) Low Lymphocyte %, 6.0 Manual LAB MONM(LOINC 2.0-13.0 % ) Monocyte %, Manual 4.0 LAB EOM(LOINC) 0.0-6.0 % Eosinophil %, 1.0 Manual LAB BASM(LOINC 0.0-2.5 % ) Basophil %, Manual 0.0 LAB ANEUM(LOIN 2.25-8.10 10 3/mcL C) High Neutrophil, Abs 12.19 Manual LAB ABLYMM(LIZETT 0.90-4.32 10 3/mcL NC) Low Lymphocyte, Abs 0.82 Manual LAB AMONM(LOIN 0.09-1.40 10 3/mcL C) Monocyte, Abs 0.55 Manual LAB AEOSM(LOIN 0.00-0.65 10 3/mcL C) Eosinophil, Abs 0.14 Manual LAB ABASM(LOIN 0.00-0.27 10 3/mcL C) Basophil, Abs 0.00 Manual Performed By: #### CBC, MG, BMP, GFR, HFP, DIFF, MORPH #### [address] [id number] .MORPH Collected: 12/01/2017 Status: F Source: [facility] 6:21 AM [facility] REPOSITORY TYPE CODE TESTS RESULT OUT OF REFERENCE UNITS RANGE LAB PLTE(LOINC ) Platelet Estimate Normal LAB ANIS(LOINC ) Anisocytosis Slight LAB POIK(LOINC ) Poik Slight LAB HYPC(LOINC ) Hypochrom Slight LAB POLC(LOINC ) Polychrom Slight Performed By: #### CBC, MG, BMP, GFR, HFP, DIFF, MORPH #### [address] Collected: 11/30/2017 Status: C Source: [employer] 11:35 PM [facility] REPOSITORY TYPE CODE TESTS RESULT OUT OF RANGE REFERENCE UNITS LAB HGB(LOINC) 12.0-16.0 G/dL Low Hgb 7.8 Result Comment: Capillary or microtainer specimen received. LAB HCT(LOINC) 34.0-46.0 % Low Hct 22.4 Performed By: #### HH #### [address] Collected: 11/30/2017 Status: F Source: [place] [facility] 7:39 PM [facility] REPOSITORY TYPE CODE TESTS RESULT OUT OF RANGE REFERENCE UNITS LAB HGB(LOINC) 12.0-16.0 G/dL Low Hgb 7.3 LAB HCT(LOINC) 34.0-46.0 % Low Hct 21.0 Performed By: #### #### [place] [id number] IR EMBOLIZATION ANY Observed: 11/30/2017 Status: F Source: [facility] 3:00 PM [facility] REPOSITORY ORIGINAL PROCEDURE: 1. Access of the RIGHT common femoral artery. 2. Superior mesenteric artery digital subtraction angiogram. 3. Ileocolic artery digital subtraction angiogram. 4. Coil embolization of the ileocolic artery. 5. Post embolization angiogram. 6. RIGHT common femoral artery angiogram. 7. Star Closure device to the RIGHT common femoral artery. DIRECTOR PHARMACY SERVICES: Dr. Kuhn MOTOR COACH DRIVER: None CLINICAL HISTORY: LGI bleed COMPARISON: None MATERIALS: 5 Fr sheath 5 Fr SOS2 5 Uzbek R C2 J-wire Probe cover Micropuncture Star closure device. Direxion microcatheter Fathom guidewire CONTRAST: 91 ml Omni 350 ANESTHESIA: Moderate sedation was administered and monitored by dedicated nursing personnel under my supervision. Dosages recorded separately. SEDATION TIME: 0 minutes FLUOROSCOPY: 18 minutes ACCESS VESSEL: Right common femoral artery PROCEDURE: The procedure, risks, and alternatives, were discussed with the patient and all questions were answered. Written informed consent obtained. Accompanying paperwork was verified for accuracy. Directed history and physical exam performed prior to the procedure. Medication reconciliation performed by nursing personnel. Procedure was performed u sing a cap, sterile gown, sterile gloves, a large sterile sheet, hand hygiene and 2% chlorhexidine for cutaneous antisepsis. The patient was positioned supine on the table and prepped and draped in usua l sterile fashion. A critical pause was performed with assisting personnel just prior to the procedure with the patient's identity confirmed using 2 identifiers, confirming site and side. Five ml of 2% lidocaine was administered at the puncture site for local anesthesia. A tiny skin incision was made and the artery was cannulated with a micropuncture set. A 5 Uzbek sheath was placed. A catheter was used to select the superior mesenteric artery DSA was performed. A microcatheter was used to selectively catheterize the ileocecal artery and a digital subtraction angiogram was performed. FINDINGS: Superior mesenteric arteriogram did not show active extravasation. Ileocecal arteriogram demonstrated active bleeding from a distal branch of the ileocecal artery. This was embolized with a variety of fibrin coated coils. Post embolization angiogram cessation of flow through the distal ileocecal artery. All catheters and wires were removed. All operators changed sterile gloves. The groin was reprepped. A closure device was prepared and deployed without incident, and with immediate hemostasis. A sterile dressing was applied. The patient tolerated the procedure well. There were no immediate complications. Blood loss was minimal. Patient condition was stable and unchanged. IMPRESSION: 1. Successful embolization of a distal branch of the ileocecal artery. Interpreted By: Amrit Kuhn MD Preliminary Report By: Amrit Kuhn MD Electronically Signed By: Amrit Kuhn MD Dictated Date: 12/01/2017 6:54:54 PM Prelim Date: 12/01/2017 6:54:54 PM Sign Date: 12/01/2017 7:30:39 PM TABO Collected: 11/30/2017 Status: F Source: [facility] 2:15 PM [facility] REPOSITORY TYPE CODE TESTS RESULT OUT OF RANGE REFERENCE UNITS LAB ABORH([facility] ) Unknown ABO/Rh B NEG Interp Performed By: #### ABORH, ANTIS #### [place] [address] TABS Collected: 11/30/2017 Status: F Source: [facility] 2:15 PM [facility] REPOSITORY TYPE CODE TESTS RESULT OUT OF REFERENCE UNITS RANGE LAB ANST(LOINC ) Antibody Negative ABSC Screen Tango Performed By: #### ABORH, ANTIS #### [place] [id number] [place] [address] CT ANGIOGRAPHY ABD Observed: 11/30/2017 Status: F Source: [facility] + [facility] 2:00 PM [facility] REPOSITORY ORIGINAL CT ANGIOGRAPHY ABD AORTA + ILIOFEMORAL, 12/01/2019 18-20 8:00 PM CLINICAL INDICATION: hematochezia with + nuclear scan. EGD negative, concern for lower GI bleed. Requesting angiogram + treatment if bleeding seen COMPARISON: Nuclear medicine exam for gastrointestinal bleeding on 11/29/2017 TECHNIQUE: Precontrast and postcontrast imaging of the abdomen and pelvis including the proximal thighs was obtained. Delayed venous phase imaging was also performed. Multiplanar and 3D reconstructed im ages were generated, reviewed and manipulated on a separate workstation. This exam was performed according to our departmental dose optimization program, and includes the following measures where applic able: automated exposure control, adjustment of the mAs and/or kVp according to patient size and/or exam, and an iterative reconstruction algorithm. FINDINGS: VASCULAR: Precontrast imaging demonstrates no abnormal high attenuation in the vascular structures. AORTA: There is atherosclerotic disease of the aorta with calcifications and mural thrombus without significant stenosis, dissection, or aneurysmal dilatation. VISCERAL ARTERIES: The celiac axis and major branches, SMA and major branches, and YIN are patent. There is a single right renal artery that is patent without stenosis. There is a single LEFT renal rey ry with moderate stenosis near its origin secondary to calcified and noncalcified plaque. RIGHT PELVIC ARTERIES: Common iliac artery: Patent. External iliac artery: Patent. Internal iliac artery: Patent. Common femoral artery: Patent. Superficial femoral artery: The visualized portions patent. LEFT PELVIC ARTERIES: Common iliac artery: Patent. External iliac artery: Patent. Internal iliac artery: Patent. Common femoral artery: Patent. Superficial femoral artery: Moderate stenosis just distal to the bifurcation of the common femoral artery caused by calcified and noncalcified plaque. NONVASCULAR: There is a small LEFT pleural effusion with adjacent consolidation. A trace RIGHT pleural effusion is seen. Linear atelectasis is also present in the RIGHT lung base. A small pericardial effusion is present. A moderate amount of ascites is present in the abdomen or pelvis. A peritoneal dialysis catheter is present with the tip in the RIGHT lower quadrant anterior to the bladder. Visualized liver, spleen, adrenal glands, and pancreas are unremarkable. The gallbladder is surgically absent. Kidneys are symmetrically small in size and enhance symmetrically. Urinary bladder is underdistended with circumferential wall thickening, likely due to underdistention. The uterus is present with small calcifications and may represent a fibroid. There is contrast density within the cecum near the ileocecal valve (image 448 of series 301 and image 54 of series 601). This is only seen on postcontrast imaging and likely represents contrast extrava sation. This increases on the delayed venous phase. No other evidence of contrast extravasation is seen. Fluid is seen in the colon without evidence of high density fluid. No dilated loops of bowel. An appendicolith is present in the nondilated appendix. No abdominal or pelvic adenopathy. No suspicious osseous lesion. IMPRESSION: Contrast extravasation within the cecum near the ileocecal valve represents active gastrointestinal bleeding. No abdominal aortic aneurysm. Moderate stenosis of the LEFT renal artery and LEFT superficial artery. Moderate amount of ascites, small/trace bilateral pleural effusions, and soft tissue anasarca may be secondary to patient's fluid status. Monse Holloway D.O., discussed findings with Dr. Kristina Baker via telephone at 3:45 PM on 11/30/2017. I have personally reviewed the images of this examination and agree with the resident's findings and interpretation. Interpreted By: Lyn Villar MD Preliminary Report By: Monse Holloway DO Electronically Signed By: Lyn Villar MD Dictated Date: 11/30/2017 2:44:12 PM Prelim Date: 11/30/2017 3:09:18 PM Sign Date: 12/01/2017 9:33:18 AM RBC (PRODUCT) Collected: 11/30/2017 Status: F Source: [facility] 1:55 PM [facility] REPOSITORY TYPE CODE TESTS RESULT OUT OF REFERENCE UNITS RANGE LAB RBCPR(LOINC ) RBC Product RBC Ready Ready for Pickup Performed By: #### RBCP #### [address] Collected: 11/30/2017 Status: F Source: [facility] 1:32 PM [facility] REPOSITORY TYPE CODE TESTS RESULT OUT OF RANGE REFERENCE UNITS LAB HGB(LOINC) 12.0-16.0 G/dL Abnormal Alert Hgb 6.5 LAB HCT(LOINC) 34.0-46.0 % Low Hct 19.4 Performed By: #### #### [place] [id number] CBC Collected: 11/30/2017 Status: F Source: [facility] 4:50 AM [facility] REPOSITORY TYPE CODE TESTS RESULT OUT OF REFERENCE UNITS RANGE LAB WBC(LOINC) 4.50-10.80 10 3/mcL High WBC 12.50 LAB RBCCT(LOINC 4.10-5.30 10 6/mcL ) Low RBC 2.62 LAB HGB(LOINC) 12.0-16.0 G/dL Low Hgb 8.0 LAB HCT(LOINC) 34.0-46.0 % Low Hct 23.8 LAB MCV(LOINC) 80.0-99.0 fL MCV 90.8 LAB MCH(LOINC) 27.0-33.0 pg MCH 30.7 LAB MCHC(LOINC) 32.0-36.0 G/dL MCHC 33.8 LAB RDW(LOINC) 11.5-15.5 % RDW 15.1 LAB PLT(LOINC) 150-450 10 3/mcL Platelet 343 LAB MPV(LOINC) 6.6-10.5 fL MPV 7.2 Performed By: #### CBC, [place], [facility] #### [place] [id number] .AUTO DIFF Collected: 11/30/2017 Status: F Source: [facility] 4:50 AM [facility] REPOSITORY TYPE CODE TESTS RESULT OUT OF REFERENCE UNITS RANGE LAB CAITLYN(LOINC) 50.0-75.0 % Neutrophil % 73.9 LAB LYM(LOINC) 20.0-40.0 % Low Lymphocyte % 13.0 LAB MON(LOINC) 2.0-13.0 % Monocyte % 9.5 LAB EO(LOINC) 0.0-6.0 % Eosinophil % 3.2 LAB BAS(LOINC) 0.0-2.5 % Basophil % 0.4 LAB ABLYM(LOIN 0.90-4.32 10 3/mcL C) Lymphocyte, 1.60 Absolute LAB MAHAD(LOINC 0.09-1.40 10 3/mcL ) Monocyte, 1.20 Absolute LAB AEOS(LOINC 0.00-0.65 10 3/mcL ) Eosinophil, 0.40 Absolute LAB ABAS(LOINC 0.00-0.27 10 3/mcL ) Basophil, 0.00 Absolute Performed By: #### CBC, ADIFF, ANEU #### [place] [id number] .NEUABS Collected: 11/30/2017 Status: F Source: [facility] 4:50 AM [facility] REPOSITORY TYPE CODE TESTS RESULT OUT OF REFERENCE UNITS RANGE LAB ANEU(LOINC) 2.25-8.10 10 3/mcL High Neutrophil, 9.20 Absolute Performed By: #### CBC, ADIFF, ANEU #### [place] [address] MG Collected: 11/30/2017 Status: F Source: [facility] 4:50 AM [facility] REPOSITORY TYPE CODE TESTS RESULT OUT OF REFERENCE UNITS RANGE LAB MG(LOINC) 1.6-2.4 mg/dL High Magnesium Lvl 2.7 Performed By: #### MG, BMP, GFR, HFP #### [place] [address] BMP Collected: 11/30/2017 Status: F Source: [facility] 4:50 AM [facility] REPOSITORY TYPE CODE TESTS RESULT OUT OF REFERENCE UNITS RANGE LAB GLU(LOINC) 70-110 mg/dL Glucose High Level 220 LAB NA(LOINC) 136-145 mEq/L Low Sodium Level 133 LAB K(LOINC) 3.5-5.0 mEq/L Potassium Level 4.3 LAB CL(LOINC) 98-110 mEq/L Low Chloride 93 LAB CO2(LOINC) 22-32 mEq/L CO2 22 LAB EBAL(LOINC 4.0-15.0 mEq/L ) Electrolyte High Balance 18.0 LAB BUN(LOINC) 8.0-22.0 mg/dL BUN High 76.0 LAB CRE(LOINC) 0.50-1.20 mg/dL Creatinine High Lvl (s) 9.40 LAB BC(LOINC) 10.0-22.0 ratio Low BUN/Creatinine 8.1 Ratio LAB CA(LOINC) 8.4-10.1 mg/dL Low Calcium Lvl 7.0 Performed By: #### MG, BMP, GFR, HFP #### [address] [address] .GFR Collected: 11/30/2017 Status: F Source: [facility] 4:50 AM [facility] REPOSITORY TYPE CODE TESTS RESULT OUT OF REFERENCE UNITS RANGE LAB GFRAA(LOINC ml/min/1.73 ) sqm GFR 5 Haitian Result Comment: GFR Population mean for , Non- Americans Ages 20-29 = 116 mL/min/1.73 sq.m. Ages 30-39 = 107 mL/min/1.73 sq.m. Ages 40-49 = 99 mL/min/1.73 sq.m. Ages 50-59 = 93 mL/min/1.73 sq.m. Ages 60-69 = 85 mL/min/1.73 sq.m. Ages 70+ = 75 mL/min/1.73 sq.m. Chronic Kidney Disease: Less than 60 mL/min/1.73 square meters End Stage Renal Disease: Less than 15 mL/min/1.73 square meters LAB GFRNO(LOINC) ml/min/1.73sqm GFR Non- 4 Result Comment: GFR Population mean for , Non- Americans Ages 20-29 = 116 mL/min/1.73 sq.m. Ages 30-39 = 107 mL/min/1.73 sq.m. Ages 40-49 = 99 mL/min/1.73 sq.m. Ages 50-59 = 93 mL/min/1.73 sq.m. Ages 60-69 = 85 mL/min/1.73 sq.m. Ages 70+ = 75 mL/min/1.73 sq.m. Chronic Kidney Disease: Less than 60 mL/min/1.73 square meters End Stage Renal Disease: Less than 15 mL/min/1.73 square meters Performed By: #### MG, BMP, GFR, HFP #### [address] [address] HFP Collected: 11/30/2017 Status: F Source: [facility] 4:50 AM [facility] REPOSITORY TYPE CODE TESTS RESULT OUT OF REFERENCE UNITS RANGE LAB PROT(LOINC) 6.0-8.5 G/dL Low Total Protein 4.9 LAB ALB(LOINC) 3.2-4.8 G/dL Low Albumin Level 1.5 LAB GLB(LOINC) 1.5-3.8 G/dL Globulin 3.4 LAB AG(LOINC) 0.9-1.6 ratio Low A/G Ratio 0.4 LAB BILT(LOINC) 0.2-1.2 mg/dL Bili Total 0.5 LAB BILAD(LOINC 0.0-0.4 mg/dL ) Bili Direct 0.2 LAB BILI(LOINC) 0.1-10.0 mg/dL Bili Indirect 0.3 Result Comment: Calculation Performed by Rule LAB AP(LOINC) 38-126 U/L High Alk Phos 143 LAB AST(LOINC) 8-34 U/L AST/SGOT 18 LAB ALT(LOINC) 10-49 U/L High ALT/SGPT 53 Performed By: #### MG, BMP, GFR, HFP #### [place] [id number] RBC (PRODUCT) Collected: 11/29/2017 Status: F Source: [facility] 10:18 [facility] REPOSITORY TYPE CODE TESTS RESULT OUT OF REFERENCE UNITS RANGE LAB RBCPR(LOINC ) RBC Product RBC Ready Ready for Pickup Performed By: #### RBCP #### [place] [address] HH Collected: 11/29/2017 Status: F Source: [facility] 10:02 [facility] REPOSITORY TYPE CODE TESTS RESULT OUT OF RANGE REFERENCE UNITS LAB HGB(LOINC) 12.0-16.0 G/dL Low Hgb 7.1 LAB HCT(LOINC) 34.0-46.0 % Low Hct 21.2 Performed By: #### HH #### [place] [address] NM GASTROINTESTINAL BLOOD Observed: 11/29/2017 Status: C Source: [facility] 1:52 PM [facility] REPOSITORY ADDENDUM The rescanned 11/30/17 after passing clots. Abnormal activity is now seen in the stomach, small bowel, and colon. The site of bleeding is most likely in the stomach, with passage throughout the GI tract . Endoscopy is recommended rather than arteriography. Interpreted By: Gunner Sierra MD Preliminary Report By: Gunner Sierra MD Electronically Signed By: Gunner Sierra MD Dictated Date: 11/30/2017 9:29:07 AM Prelim Date: 11/30/2017 9:31:05 AM Sign Date: 11/30/2017 9:31:05 AM ORIGINAL NM RBC GI Bleeding Study CLINICAL STATEMENT: melena, maroon stools (last BM yest), now with dropping H/H. Spoke with GI, recommending nuclear bleeding scan TECHNIQUE: Radiopharmaceutical: Tc-99m SnCI IV Dose:30.6mCi Labeling of RBCs with an in vitro technique Flow exam for 60 seconds Dynamic planar images of the abdomen and pelvis for 60 minutes Lateral view of the rectosigmoid at 60 minutes FINDINGS: There is a normal distribution of radiolabeled RBCs throughout the abdomen and pelvis. There is no extravasation of RBCs into the gastrointestinal tract. IMPRESSION: No active GI bleeding site is identified. I have personally reviewed the images of this examination and agree with the resident's findings and interpretation. Interpreted By: Gunner Sierra MD Preliminary Report By: Jarvis Henderson MD Electronically Signed By: Gunner Sierra MD Dictated Date: 11/29/2017 3:53:54 PM Prelim Date: 11/29/2017 3:55:51 PM Sign Date: 11/29/2017 4:04:54 PM RBC (PRODUCT) Collected: 11/29/2017 Status: F Source: [facility] 12:55 PM [facility] REPOSITORY TYPE CODE TESTS RESULT OUT OF REFERENCE UNITS RANGE LAB RBCPR(LOINC ) RBC Product RBC Ready Ready for Pickup Performed By: #### RBCP #### [address] [id number] HH Collected: 11/29/2017 Status: F Source: [facility] 11:40 AM [facility] REPOSITORY TYPE CODE TESTS RESULT OUT OF RANGE REFERENCE UNITS LAB HGB(LOINC) 12.0-16.0 G/dL Abnormal Alert Hgb 6.6 LAB HCT(LOINC) 34.0-46.0 % Low Hct 19.7 Performed By: #### HH #### [address] [address] CBC Collected: 11/29/2017 Status: F Source: [facility] 4:55 AM [facility] REPOSITORY TYPE CODE TESTS RESULT OUT OF REFERENCE UNITS RANGE LAB WBC(LOINC) 4.50-10.80 10 3/mcL High WBC 11.30 LAB RBCCT(LOINC 4.10-5.30 10 6/mcL ) Low RBC 2.29 LAB HGB(LOINC) 12.0-16.0 G/dL Low Hgb 7.1 LAB HCT(LOINC) 34.0-46.0 % Low Hct 20.7 LAB MCV(LOINC) 80.0-99.0 fL MCV 90.1 LAB MCH(LOINC) 27.0-33.0 pg MCH 30.9 LAB MCHC(LOINC) 32.0-36.0 G/dL MCHC 34.2 LAB RDW(LOINC) 11.5-15.5 % High RDW 15.9 LAB PLT(LOINC) 150-450 10 3/mcL Platelet 379 LAB MPV(LOINC) 6.6-10.5 fL MPV 7.4 Performed By: #### CBC, ADIFF, ANEU, MG, BMP, GFR, HFP #### [address] [address] .AUTO DIFF Collected: 11/29/2017 Status: F Source: [facility] 4:55 [facility] REPOSITORY TYPE CODE TESTS RESULT OUT OF REFERENCE UNITS RANGE LAB CAITLYN(LOINC) 50.0-75.0 % High Neutrophil % 76.8 LAB LYM(LOINC) 20.0-40.0 % Low Lymphocyte % 10.0 LAB MON(LOINC) 2.0-13.0 % Monocyte % 9.7 LAB EO(LOINC) 0.0-6.0 % Eosinophil % 2.9 LAB BAS(LOINC) 0.0-2.5 % Basophil % 0.6 LAB ABLYM(LOIN 0.90-4.32 10 3/mcL C) Lymphocyte, 1.10 Absolute LAB MAHAD(LOINC 0.09-1.40 10 3/mcL ) Monocyte, 1.10 Absolute LAB AEOS(LOINC 0.00-0.65 10 3/mcL ) Eosinophil, 0.30 Absolute LAB ABAS(LOINC 0.00-0.27 10 3/mcL ) Basophil, 0.10 Absolute Performed By: #### CBC, ADIFF, ANEU, MG, BMP, GFR, HFP #### [address] [address] .NEUABS Collected: 11/29/2017 Status: F Source: [facility] 4:55 AM [facility] REPOSITORY TYPE CODE TESTS RESULT OUT OF REFERENCE UNITS RANGE LAB ANEU(LOINC) 2.25-8.10 10 3/mcL High Neutrophil, 8.70 Absolute Performed By: #### CBC, ADIFF, ANEU, MG, BMP, GFR, HFP #### [address] [address] MG Collected: 11/29/2017 Status: F Source: [facility] 4:55 AM [facility] REPOSITORY TYPE CODE TESTS RESULT OUT OF REFERENCE UNITS RANGE LAB MG(LOINC) 1.6-2.4 mg/dL High Magnesium Lvl 2.9 Performed By: #### CBC, ADIFF, ANEU, MG, BMP, GFR, HFP #### [place] [address] BMP Collected: 11/29/2017 Status: F Source: [facility] 4:55 AM [facility] REPOSITORY TYPE CODE TESTS RESULT OUT OF REFERENCE UNITS RANGE LAB GLU(LOINC) 70-110 mg/dL Glucose High Level 233 LAB NA(LOINC) 136-145 mEq/L Low Sodium Level 134 LAB K(LOINC) 3.5-5.0 mEq/L Potassium Level 4.3 LAB CL(LOINC) 98-110 mEq/L Low Chloride 90 LAB CO2(LOINC) 22-32 mEq/L Low CO2 21 LAB EBAL(LOINC 4.0-15.0 mEq/L ) Electrolyte High Balance 23.0 LAB BUN(LOINC) 8.0-22.0 mg/dL BUN High 85.0 LAB CRE(LOINC) 0.50-1.20 mg/dL Creatinine High Lvl (s) 9.55 LAB BC(LOINC) 10.0-22.0 ratio Low BUN/Creatinine 8.9 Ratio LAB CA(LOINC) 8.4-10.1 mg/dL Low Calcium Lvl 7.4 Performed By: #### CBC, ADIFF, ANEU, MG, BMP, GFR, HFP #### [address] [address] .GFR Collected: 11/29/2017 Status: F Source: [facility] 4:55 AM [facility] REPOSITORY TYPE CODE TESTS RESULT OUT OF REFERENCE UNITS RANGE LAB GFRAA(LOINC ml/min/1.73 ) sqm GFR 5 Haitian Result Comment: GFR Population mean for , Non- Americans Ages 20-29 = 116 mL/min/1.73 sq.m. Ages 30-39 = 107 mL/min/1.73 sq.m. Ages 40-49 = 99 mL/min/1.73 sq.m. Ages 50-59 = 93 mL/min/1.73 sq.m. Ages 60-69 = 85 mL/min/1.73 sq.m. Ages 70+ = 75 mL/min/1.73 sq.m. Chronic Kidney Disease: Less than 60 mL/min/1.73 square meters End Stage Renal Disease: Less than 15 mL/min/1.73 square meters LAB GFRNO(LOINC) ml/min/1.73sqm GFR Non- 4 Result Comment: GFR Population mean for , Non- Americans Ages 20-29 = 116 mL/min/1.73 sq.m. Ages 30-39 = 107 mL/min/1.73 sq.m. Ages 40-49 = 99 mL/min/1.73 sq.m. Ages 50-59 = 93 mL/min/1.73 sq.m. Ages 60-69 = 85 mL/min/1.73 sq.m. Ages 70+ = 75 mL/min/1.73 sq.m. Chronic Kidney Disease: Less than 60 mL/min/1.73 square meters End Stage Renal Disease: Less than 15 mL/min/1.73 square meters Performed By: #### CBC, ADIFF, ANEU, MG, BMP, GFR, HFP #### [address] Collected: 11/29/2017 Status: F Source: [facility] 4:55 [facility] TYPE CODE TESTS RESULT OUT OF REFERENCE UNITS RANGE LAB PROT(LOINC) 6.0-8.5 G/dL Low Total Protein 5.3 LAB ALB(LOINC) 3.2-4.8 G/dL Low Albumin Level 1.7 LAB GLB(LOINC) 1.5-3.8 G/dL Globulin 3.6 LAB AG(LOINC) 0.9-1.6 ratio Low A/G Ratio 0.5 LAB BILT(LOINC) 0.2-1.2 mg/dL Bili Total 0.4 LAB BILAD(LOINC 0.0-0.4 mg/dL ) Bili Direct 0.2 LAB BILI(LOINC) 0.1-10.0 mg/dL Bili Indirect 0.2 Result Comment: Calculation Performed by Rule LAB AP(LOINC) 38-126 U/L High Alk Phos 157 LAB AST(LOINC) 8-34 U/L AST/SGOT 25 LAB ALT(LOINC) 10-49 U/L High ALT/SGPT 72 Performed By: #### CBC, ADIFF, ANEU, MG, BMP, GFR, [facility] #### [address] [address] CBC Collected: 11/28/2017 Status: F Source: [facility] 5:09 AM [facility] REPOSITORY TYPE CODE TESTS RESULT OUT OF REFERENCE UNITS RANGE LAB WBC(LOINC) 4.50-10.80 10 3/mcL High WBC 12.20 LAB RBCCT(LOINC 4.10-5.30 10 6/mcL ) Low RBC 2.98 LAB HGB(LOINC) 12.0-16.0 G/dL Low Hgb 9.0 LAB HCT(LOINC) 34.0-46.0 % Low Hct 26.3 LAB MCV(LOINC) 80.0-99.0 fL MCV 88.4 LAB MCH(LOINC) 27.0-33.0 pg MCH 30.3 LAB MCHC(LOINC) 32.0-36.0 G/dL MCHC 34.3 LAB RDW(LOINC) 11.5-15.5 % High RDW 16.6 LAB PLT(LOINC) 150-450 10 3/mcL High Platelet 466 LAB MPV(LOINC) 6.6-10.5 fL MPV 7.8 Performed By: #### CBC, ADIFF, ANEU, MG, BMP, GFR, [facility] #### [address] [address] .AUTO DIFF Collected: 11/28/2017 Status: F Source: [facility] 5:09 AM [facility] REPOSITORY TYPE CODE TESTS RESULT OUT OF REFERENCE UNITS RANGE LAB CAITLYN(LOINC) 50.0-75.0 % High Neutrophil % 78.7 LAB LYM(LOINC) 20.0-40.0 % Low Lymphocyte % 10.4 LAB MON(LOINC) 2.0-13.0 % Monocyte % 8.1 LAB EO(LOINC) 0.0-6.0 % Eosinophil % 2.4 LAB BAS(LOINC) 0.0-2.5 % Basophil % 0.4 LAB ABLYM(LOIN 0.90-4.32 10 3/mcL C) Lymphocyte, 1.30 Absolute LAB MAHAD(LOINC 0.09-1.40 10 3/mcL ) Monocyte, 1.00 Absolute LAB AEOS(LOINC 0.00-0.65 10 3/mcL ) Eosinophil, 0.30 Absolute LAB ABAS(LOINC 0.00-0.27 10 3/mcL ) Basophil, 0.00 Absolute Performed By: #### CBC, ADIFF, ANEU, MG, BMP, GFR, HFP #### [place] [address] .NEUABS Collected: 11/28/2017 Status: F Source: [facility] 5:09 AM [facility] REPOSITORY TYPE CODE TESTS RESULT OUT OF REFERENCE UNITS RANGE LAB ANEU(LOINC) 2.25-8.10 10 3/mcL High Neutrophil, 9.60 Absolute Performed By: #### CBC, ADIFF, ANEU, MG, BMP, GFR, HFP #### [place] [address] MG Collected: 11/28/2017 Status: F Source: [facility] 5:09 AM [facility] REPOSITORY TYPE CODE TESTS RESULT OUT OF REFERENCE UNITS RANGE LAB MG(LOINC) 1.6-2.4 mg/dL High Magnesium Lvl 2.9 Performed By: #### CBC, ADIFF, ANEU, MG, BMP, GFR, HFP #### [place] [address] BMP Collected: 11/28/2017 Status: F Source: [facility] 5:09 AM [facility] REPOSITORY TYPE CODE TESTS RESULT OUT OF REFERENCE UNITS RANGE LAB GLU(LOINC) 70-110 mg/dL Glucose High Level 199 LAB NA(LOINC) 136-145 mEq/L Low Sodium Level 134 LAB K(LOINC) 3.5-5.0 mEq/L Potassium Level 4.3 LAB CL(LOINC) 98-110 mEq/L Low Chloride 89 LAB CO2(LOINC) 22-32 mEq/L CO2 22 LAB EBAL(LOINC 4.0-15.0 mEq/L ) Electrolyte High Balance 23.0 LAB BUN(LOINC) 8.0-22.0 mg/dL BUN High 90.0 LAB CRE(LOINC) 0.50-1.20 mg/dL Creatinine High Lvl (s) 9.50 LAB BC(LOINC) 10.0-22.0 ratio Low BUN/Creatinine 9.5 Ratio LAB CA(LOINC) 8.4-10.1 mg/dL Low Calcium Lvl 7.9 Performed By: #### CBC, ADIFF, ANEU, MG, BMP, GFR, HFP #### [facility] [address] [place] [address] .GFR Collected: 11/28/2017 Status: F Source: [facility] 5:09 AM [facility] REPOSITORY TYPE CODE TESTS RESULT OUT OF REFERENCE UNITS RANGE LAB GFRAA(LOINC ml/min/1.73 ) sqm GFR 5 Haitian Result Comment: GFR Population mean for , Non- Americans Ages 20-29 = 116 mL/min/1.73 sq.m. Ages 30-39 = 107 mL/min/1.73 sq.m. Ages 40-49 = 99 mL/min/1.73 sq.m. Ages 50-59 = 93 mL/min/1.73 sq.m. Ages 60-69 = 85 mL/min/1.73 sq.m. Ages 70+ = 75 mL/min/1.73 sq.m. Chronic Kidney Disease: Less than 60 mL/min/1.73 square meters End Stage Renal Disease: Less than 15 mL/min/1.73 square meters LAB GFRNO(LOINC) ml/min/1.73sqm GFR Non- 4 Result Comment: GFR Population mean for , Non- Americans Ages 20-29 = 116 mL/min/1.73 sq.m. Ages 30-39 = 107 mL/min/1.73 sq.m. Ages 40-49 = 99 mL/min/1.73 sq.m. Ages 50-59 = 93 mL/min/1.73 sq.m. Ages 60-69 = 85 mL/min/1.73 sq.m. Ages 70+ = 75 mL/min/1.73 sq.m. Chronic Kidney Disease: Less than 60 mL/min/1.73 square meters End Stage Renal Disease: Less than 15 mL/min/1.73 square meters Performed By: #### CBC, ADIFF, ANEU, MG, BMP, GFR, HFP #### [place] [id number] HFP Collected: 11/28/2017 Status: F Source: [facility] 5:09 AM [facility] REPOSITORY TYPE CODE TESTS RESULT OUT OF REFERENCE UNITS RANGE LAB PROT(LOINC) 6.0-8.5 G/dL Total Protein 6.1 LAB ALB(LOINC) 3.2-4.8 G/dL Low Albumin Level 1.8 LAB GLB(LOINC) 1.5-3.8 G/dL High Globulin 4.3 LAB AG(LOINC) 0.9-1.6 ratio Low A/G Ratio 0.4 LAB BILT(LOINC) 0.2-1.2 mg/dL Bili Total 0.5 LAB BILAD(LOINC 0.0-0.4 mg/dL ) Bili Direct 0.2 LAB BILI(LOINC) 0.1-10.0 mg/dL Bili Indirect 0.3 Result Comment: Calculation Performed by Rule LAB AP(LOINC) 38-126 U/L High Alk Phos 213 LAB AST(LOINC) 8-34 U/L AST/SGOT 25 LAB ALT(LOINC) 10-49 U/L High ALT/SGPT 95 Performed By: #### CBC, ADIFF, ANEU, MG, BMP, GFR, HFP #### [place] [address] HH Collected: 11/27/2017 Status: F Source: [facility] 4:43 PM [facility] REPOSITORY Order Comment: please obtain 1 hour after blood transfusion TYPE CODE TESTS RESULT OUT OF RANGE REFERENCE UNITS LAB HGB(LOINC) 12.0-16.0 G/dL Low Hgb 8.4 LAB HCT(LOINC) 34.0-46.0 % Low Hct 25.4 Performed By: #### HH #### [place] [address] TABO Collected: 11/27/2017 Status: F Source: [facility] 8:00 AM [facility] REPOSITORY TYPE CODE TESTS RESULT OUT OF RANGE REFERENCE UNITS LAB ABORH(LOINC ) Unknown ABO/Rh B NEG Interp Performed By: #### ABORH, ANTIS #### [address] [address] TABS Collected: 11/27/2017 Status: F Source: [facility] 8:00 AM [facility] REPOSITORY TYPE CODE TESTS RESULT OUT OF REFERENCE UNITS RANGE LAB ANST(LOINC ) Antibody Negative ABSC Screen Tango Performed By: #### LAUREN, ANTIS #### [place] [address] RBC (PRODUCT) Collected: 11/27/2017 Status: F Source: [facility] 7:48 AM [facility] REPOSITORY TYPE CODE TESTS RESULT OUT OF REFERENCE UNITS RANGE LAB RBCPR(LOINC ) RBC Product RBC Ready Ready for Pickup Performed By: #### RBCP #### [place] [address] CBC Collected: 11/27/2017 Status: F Source: [facility] 5:34 AM [facility] REPOSITORY TYPE CODE TESTS RESULT OUT OF REFERENCE UNITS RANGE LAB WBC(LOINC) 4.50-10.80 10 3/mcL High WBC 11.60 LAB RBCCT(LOINC 4.10-5.30 10 6/mcL ) Low RBC 2.33 LAB HGB(LOINC) 12.0-16.0 G/dL Low Hgb 7.1 LAB HCT(LOINC) 34.0-46.0 % Low Hct 21.1 LAB MCV(LOINC) 80.0-99.0 fL MCV 90.5 LAB MCH(LOINC) 27.0-33.0 pg MCH 30.2 LAB MCHC(LOINC) 32.0-36.0 G/dL MCHC 33.4 LAB RDW(LOINC) 11.5-15.5 % High RDW 16.4 LAB PLT(LOINC) 150-450 10 3/mcL Platelet 413 LAB MPV(LOINC) 6.6-10.5 fL MPV 7.9 Performed By: #### CBC, ADIFF, ANEU, MG, GFR, BMP, HFP #### [address] [address] .AUTO DIFF Collected: 11/27/2017 Status: F Source: [facility] 5:34 AM [facility] REPOSITORY TYPE CODE TESTS RESULT OUT OF REFERENCE UNITS RANGE LAB CAITLYN(LOINC) 50.0-75.0 % High Neutrophil % 79.6 LAB LYM(LOINC) 20.0-40.0 % Low Lymphocyte % 8.7 LAB MON(LOINC) 2.0-13.0 % Monocyte % 9.2 LAB EO(LOINC) 0.0-6.0 % Eosinophil % 1.8 LAB BAS(LOINC) 0.0-2.5 % Basophil % 0.7 LAB ABLYM(LOIN 0.90-4.32 10 3/mcL C) Lymphocyte, 1.00 Absolute LAB MAHAD(LOINC 0.09-1.40 10 3/mcL ) Monocyte, 1.10 Absolute LAB AEOS(LOINC 0.00-0.65 10 3/mcL ) Eosinophil, 0.20 Absolute LAB ABAS(LOINC 0.00-0.27 10 3/mcL ) Basophil, 0.10 Absolute Performed By: #### CBC, ADIFF, ANEU, MG, GFR, BMP, HFP #### [place] [address] .NEUABS Collected: 11/27/2017 Status: F Source: [facility] 5:34 AM [facility] REPOSIT[facility] TYPE CODE TESTS RESULT OUT OF REFERENCE UNITS RANGE LAB ANEU(LOINC) 2.25-8.10 10 3/mcL High Neutrophil, 9.20 Absolute Performed By: #### CBC, ADIFF, ANEU, MG, GFR, BMP, HFP #### [place] [address] MG Collected: 11/27/2017 Status: F Source: [facility] 5:34 AM [facility] REPOS[facility] TYPE CODE TESTS RESULT OUT OF REFERENCE UNITS RANGE LAB MG(LOINC) 1.6-2.4 mg/dL High Magnesium Lvl 3.2 Performed By: #### CBC, ADIFF, ANEU, MG, GFR, BMP, HFP #### [place] [address] .GFR Collected: 11/27/2017 Status: F Source: [place] [facility] 5:34 AM [facility] REPOSITORY TYPE CODE TESTS RESULT OUT OF REFERENCE UNITS RANGE LAB GFRAA(LOINC ml/min/1.73 ) sqm GFR 5 Haitian Result Comment: GFR Population mean for , Non- Americans Ages 20-29 = 116 mL/min/1.73 sq.m. Ages 30-39 = 107 mL/min/1.73 sq.m. Ages 40-49 = 99 mL/min/1.73 sq.m. Ages 50-59 = 93 mL/min/1.73 sq.m. Ages 60-69 = 85 mL/min/1.73 sq.m. Ages 70+ = 75 mL/min/1.73 sq.m. Chronic Kidney Disease: Less than 60 mL/min/1.73 square meters End Stage Renal Disease: Less than 15 mL/min/1.73 square meters LAB GFRNO(LOINC) ml/min/1.73sqm GFR Non- 4 Result Comment: GFR Population mean for , Non- Americans Ages 20-29 = 116 mL/min/1.73 sq.m. Ages 30-39 = 107 mL/min/1.73 sq.m. Ages 40-49 = 99 mL/min/1.73 sq.m. Ages 50-59 = 93 mL/min/1.73 sq.m. Ages 60-69 = 85 mL/min/1.73 sq.m. Ages 70+ = 75 mL/min/1.73 sq.m. Chronic Kidney Disease: Less than 60 mL/min/1.73 square meters End Stage Renal Disease: Less than 15 mL/min/1.73 square meters Performed By: #### CBC, ADIFF, ANEU, MG, GFR, BMP, HFP #### [place] [address] BMP Collected: 11/27/2017 Status: F Source: [facility] 5:34 AM [facility] TYPE CODE TESTS RESULT OUT OF REFERENCE UNITS RANGE LAB GLU(LOINC) 70-110 mg/dL Glucose High Level 300 LAB NA(LOINC) 136-145 mEq/L Low Sodium Level 134 LAB K(LOINC) 3.5-5.0 mEq/L Potassium Level 4.5 LAB CL(LOINC) 98-110 mEq/L Low Chloride 88 LAB CO2(LOINC) 22-32 mEq/L CO2 23 LAB EBAL(LOINC 4.0-15.0 mEq/L ) Electrolyte High Balance 23.0 LAB BUN(LOINC) 8.0-22.0 mg/dL BUN High 96.0 LAB CRE(LOINC) 0.50-1.20 mg/dL Creatinine High Lvl (s) 9.93 LAB BC(LOINC) 10.0-22.0 ratio Low BUN/Creatinine 9.7 Ratio LAB CA(LOINC) 8.4-10.1 mg/dL Low Calcium Lvl 7.7 Performed By: #### CBC, ADIFF, ANEU, MG, GFR, BMP, HFP #### [place] [address] HFP Collected: 11/27/2017 Status: F Source: [facility] 5:34 AM [facility] REPOS[facility] TYPE CODE TESTS RESULT OUT OF REFERENCE UNITS RANGE LAB PROT(LOINC) 6.0-8.5 G/dL Low Total Protein 5.5 LAB ALB(LOINC) 3.2-4.8 G/dL Low Albumin Level 1.7 LAB GLB(LOINC) 1.5-3.8 G/dL Globulin 3.8 LAB AG(LOINC) 0.9-1.6 ratio Low A/G Ratio 0.4 LAB BILT(LOINC) 0.2-1.2 mg/dL Bili Total 0.5 LAB BILAD(LOINC 0.0-0.4 mg/dL ) Bili Direct 0.2 LAB BILI(LOINC) 0.1-10.0 mg/dL Bili Indirect 0.3 Result Comment: Calculation Performed by Rule LAB AP(LOINC) 38-126 U/L High Alk Phos 195 LAB AST(LOINC) 8-34 U/L AST/SGOT 25 LAB ALT(LOINC) 10-49 U/L High ALT/SGPT 105 Performed By: #### CBC, ADIFF, ANEU, MG, GFR, BMP, HFP #### [place] [address] RESPID Collected: 11/26/2017 Status: F Source: [facility] 12:33 PM [facility] REPOS[facility] TYPE CODE TESTS RESULT OUT OF REFERENCE UNITS RANGE LAB RESADENO( Not Detected LOINC) Adenovirus Not Detected LAB COVHKU1(L Not Detected OINC) Coronavirus HKU1 Not Detected LAB COVNL63(L Not Detected OINC) Coronavirus NL63 Not Detected LAB [id number](L Not Detected OINC) Coronavirus 229E Not Detected LAB COVOC43(L Not Detected OINC) Coronavirus OC43 Not Detected LAB HMV(LOINC Not Detected ) Human Metapneumovirus Not Detected LAB INFA(LOIN Not Detected C) Influenza A Not Detected LAB INFAB(LIZETT Not Detected NC) Influenza B Not Detected LAB PARAFLU1( Not Detected LOINC) Parainfluenza 1 Not Detected LAB PARAFLU2( Not Detected LOINC) Parainfluenza 2 Not Detected LAB PARAFLU3( Not Detected LOINC) Parainfluenza 3 Not Detected LAB PARAFLU4( Not Detected LOINC) Parainfluenza 4 Not Detected LAB RHINO(LIZETT Not Detected NC) Rhinovirus/Enterovir us Not Detected LAB RESRSV(LO Not Detected INC) Respiratory Syncytial Virus Not Detected LAB RESMYCO(L Not Detected OINC) Mycoplasma pneumoniae Not Detected LAB RESCHLAM( Not Detected LOINC) Chlamydophila pneumoniae Not Detected LAB RESBORD(L Not Detected OINC) Bordetella Pertussis Not Detected LAB RESBPAR(L Not Detected OINC) Bordetella Parapertussis Not Detected Performed By: #### RESPID #### [place] [address] PRO Collected: 11/26/2017 Status: F Source: [place] [facility] 7:31 AM [facility] REPOSITORY TYPE CODE TESTS RESULT OUT OF REFERENCE UNITS RANGE LAB PT(LOINC) 9.0-14.5 seconds Protime 13.8 Result Comment: Effective 09/01/07, Protime results may be affected by some antibiotics (i.e. Ciprofloxacin, Azithromycin, Bactrim) which may potentiate the action of oral anticoagulants, with further increases in Protime/INR. LAB INR(LOINC) ratio PT International Ratio 1.2 Result Comment: The [employer] (CHEST, 1992, [id number]) recommended therapeutic range for oral anticoagulant therapy is: LOW RISK: Prophylaxis of venous thrombosis INR: 2.0-3.0 Treatment of pulmonary embolism 2.0-3.0 Prevention of systemic embolism 2.0-3.0 HIGH RISK: Mechanical prosthetic valves 2.5-3.5 Performed By: #### PRO, RFP, MYCO #### [place] [address] RFP Collected: 11/26/2017 Status: F Source: [facility] 7:31 AM [facility] REPOSITORY TYPE CODE TESTS RESULT OUT OF RANGE REFERENCE UNITS LAB GLU(LOINC) 70-110 mg/dL High Glucose Level 263 LAB NA(LOINC) 136-145 mEq/L Low Sodium Level 134 LAB K(LOINC) 3.5-5.0 mEq/L Potassium Level 4.3 LAB CL(LOINC) 98-110 mEq/L Low Chloride 87 LAB CO2(LOINC) 22-32 mEq/L Low CO2 20 LAB EBAL(LOINC 4.0-15.0 mEq/L ) High Electrolyte Balance 27.0 LAB BUN(LOINC) 8.0-22.0 mg/dL BUN Abnormal 106.0 Alert LAB CRE(LOINC) 0.50-1.20 mg/dL High Creatinine Lvl (s) 10.20 LAB BC(LOINC) 10.0-22.0 ratio BUN/Creatinine 10.4 Ratio LAB CA(LOINC) 8.4-10.1 mg/dL Calcium Lvl 8.6 LAB PHOS(LOINC 2.5-4.5 mg/dL ) Phosphorus Abnormal 10.4 Alert LAB ALB(LOINC) 3.2-4.8 G/dL Low Albumin Level 1.9 Performed By: #### PRO, RFP, MYCO #### [place] [address] MYCO Collected: 11/26/2017 Status: F Source: [facility] 7:31 AM [facility] REPOSITORY TYPE CODE TESTS RESULT OUT OF REFERENCE UNITS RANGE LAB AMYCM(LOIN C) Mycoplasma IgM Negative Result Comment: INTERPRETATION OF MYCOPLASMA BY EIA (Effective 02/23/04): Negative No detectable antibodies to M. pneumoniae. Indicates absence of current or previous infection. Positive Reactive for antibodies to M. pneumoniae. Indicates a past or recent infection. Equivocal Equivocal for antibodies to M. pneumoniae. Repeat testing by an alternate method suggested. LAB AMYCG(LOINC) Mycoplasma IgG Pos Result Comment: INTERPRETATION OF MYCOPLASMA BY EIA (Effective 02/23/04): Negative No detectable antibodies to M. pneumoniae. Indicates absence of current or previous infection. Positive Reactive for antibodies to M. pneumoniae. Indicates a past or recent infection. Equivocal Equivocal for antibodies to M. pneumoniae. Repeat testing by an alternate method suggested. Performed By: #### PRO, RFP, MYCO #### [address] [address] CBC Collected: 11/26/2017 Status: F Source: [facility] 7:31 AM [facility] REPOSITORY TYPE CODE TESTS RESULT OUT OF REFERENCE UNITS RANGE LAB WBC(LOINC) 4.50-10.80 10 3/mcL High WBC 20.30 LAB RBCCT(LOINC 4.10-5.30 10 6/mcL ) Low RBC 2.77 LAB HGB(LOINC) 12.0-16.0 G/dL Low Hgb 8.4 LAB HCT(LOINC) 34.0-46.0 % Low Hct 25.0 LAB MCV(LOINC) 80.0-99.0 fL MCV 90.1 LAB MCH(LOINC) 27.0-33.0 pg MCH 30.4 LAB MCHC(LOINC) 32.0-36.0 G/dL MCHC 33.8 LAB RDW(LOINC) 11.5-15.5 % High RDW 16.4 LAB PLT(LOINC) 150-450 10 3/mcL Platelet 434 LAB MPV(LOINC) 6.6-10.5 fL MPV 8.2 Performed By: #### CBC, ADIFF, ANEU, MG, GFR, BMP, HFP #### [place] [address] .AUTO DIFF Collected: 11/26/2017 Status: F Source: [facility] 7:31 [facility] REPOSITORY TYPE CODE TESTS RESULT OUT OF REFERENCE UNITS RANGE LAB CAITLYN(LOINC) 50.0-75.0 % High Neutrophil % 88.6 LAB LYM(LOINC) 20.0-40.0 % Low Lymphocyte % 5.3 LAB MON(LOINC) 2.0-13.0 % Monocyte % 5.6 LAB EO(LOINC) 0.0-6.0 % Eosinophil % 0.3 LAB BAS(LOINC) 0.0-2.5 % Basophil % 0.2 LAB ABLYM(LOIN 0.90-4.32 10 3/mcL C) Lymphocyte, 1.10 Absolute LAB MAHAD(LOINC 0.09-1.40 10 3/mcL ) Monocyte, 1.10 Absolute LAB AEOS(LOINC 0.00-0.65 10 3/mcL ) Eosinophil, 0.10 Absolute LAB ABAS(LOINC 0.00-0.27 10 3/mcL ) Basophil, 0.00 Absolute Performed By: #### CBC, ADIFF, ANEU, MG, GFR, BMP, HFP #### [place] [id number] .NEUABS Collected: 11/26/2017 Status: F Source: [facility] 7:31 AM [facility] REPOSITORY TYPE CODE TESTS RESULT OUT OF REFERENCE UNITS RANGE LAB ANEU(LOINC) 2.25-8.10 10 3/mcL High Neutrophil, 18.00 Absolute Performed By: #### CBC, ADIFF, ANEU, MG, GFR, BMP, HFP #### [place] [address] MG Collected: 11/26/2017 Status: F Source: [facility] 7:31 AM [facility] REPOSITORY TYPE CODE TESTS RESULT OUT OF REFERENCE UNITS RANGE LAB MG(LOINC) 1.6-2.4 mg/dL High Magnesium Lvl 3.2 Performed By: #### CBC, ADIFF, ANEU, MG, GFR, BMP, HFP #### [place] [address] .GFR Collected: 11/26/2017 Status: F Source: [facility] 7:31 AM [facility] REPOSITORY TYPE CODE TESTS RESULT OUT OF REFERENCE UNITS RANGE LAB GFRAA(LOINC ml/min/1.73 ) sqm GFR 5 Haitian Result Comment: GFR Population mean for , Non- Americans Ages 20-29 = 116 mL/min/1.73 sq.m. Ages 30-39 = 107 mL/min/1.73 sq.m. Ages 40-49 = 99 mL/min/1.73 sq.m. Ages 50-59 = 93 mL/min/1.73 sq.m. Ages 60-69 = 85 mL/min/1.73 sq.m. Ages 70+ = 75 mL/min/1.73 sq.m. Chronic Kidney Disease: Less than 60 mL/min/1.73 square meters End Stage Renal Disease: Less than 15 mL/min/1.73 square meters LAB GFRNO(LOINC) ml/min/1.73sqm GFR Non- 4 Result Comment: GFR Population mean for , Non- Americans Ages 20-29 = 116 mL/min/1.73 sq.m. Ages 30-39 = 107 mL/min/1.73 sq.m. Ages 40-49 = 99 mL/min/1.73 sq.m. Ages 50-59 = 93 mL/min/1.73 sq.m. Ages 60-69 = 85 mL/min/1.73 sq.m. Ages 70+ = 75 mL/min/1.73 sq.m. Chronic Kidney Disease: Less than 60 mL/min/1.73 square meters End Stage Renal Disease: Less than 15 mL/min/1.73 square meters Performed By: #### CBC, ADIFF, ANEU, MG, GFR, BMP, HFP #### [address] [address] BMP Collected: 11/26/2017 Status: F Source: [facility] 7:31 AM [facility] REPOSITORY TYPE CODE TESTS RESULT OUT OF RANGE REFERENCE UNITS LAB GLU(LOINC) 70-110 mg/dL High Glucose Level 253 LAB NA(LOINC) 136-145 mEq/L Low Sodium Level 133 LAB K(LOINC) 3.5-5.0 mEq/L Potassium Level 4.3 LAB CL(LOINC) 98-110 mEq/L Low Chloride 87 LAB CO2(LOINC) 22-32 mEq/L Low CO2 20 LAB EBAL(LOINC 4.0-15.0 mEq/L ) High Electrolyte Balance 26.0 LAB BUN(LOINC) 8.0-22.0 mg/dL BUN Abnormal 104.0 Alert LAB CRE(LOINC) 0.50-1.20 mg/dL High Creatinine Lvl (s) 10.50 LAB BC(LOINC) 10.0-22.0 ratio Low BUN/Creatinine 9.9 Ratio LAB CA(LOINC) 8.4-10.1 mg/dL Calcium Lvl 8.9 Performed By: #### CBC, ADIFF, ANEU, MG, GFR, BMP, HFP #### [address] [address] HFP Collected: 11/26/2017 Status: F Source: [facility] 7:31 AM [facility] REPOSITORY TYPE CODE TESTS RESULT OUT OF REFERENCE UNITS RANGE LAB PROT(LOINC) 6.0-8.5 G/dL Total Protein 6.3 LAB ALB(LOINC) 3.2-4.8 G/dL Low Albumin Level 1.9 LAB GLB(LOINC) 1.5-3.8 G/dL High Globulin 4.4 LAB AG(LOINC) 0.9-1.6 ratio Low A/G Ratio 0.4 LAB BILT(LOINC) 0.2-1.2 mg/dL Bili Total 0.6 LAB BILAD(LOINC 0.0-0.4 mg/dL ) Bili Direct 0.3 LAB BILI(LOINC) 0.1-10.0 mg/dL Bili Indirect 0.3 Result Comment: Calculation Performed by Rule LAB AP(LOINC) 38-126 U/L High Alk Phos 237 LAB AST(LOINC) 8-34 U/L AST/SGOT 28 LAB ALT(LOINC) 10-49 U/L High ALT/SGPT 145 Performed By: #### CBC, ADIFF, ANEU, MG, GFR, BMP, HFP #### [place] [address] TROPI Collected: 11/26/2017 Status: F Source: [facility] 7:31 AM [facility] REPOSITORY TYPE CODE TESTS RESULT OUT OF REFERENCE UNITS RANGE LAB TROPI(LOINC 0.000-0.040 ng/mL ) Troponin I <0.015 Result Comment: Troponin I reference ranges (10/25/13): 0.00-0.040 ng/mL Negative and non-diagnostic. >0.040 ng/mL Consistent with cardiac damage, increased clinical risk and possibility of myocardial infarction. Serial measurements, a rise & fall in test results, clinical history, appropriate symptoms and/or ECG changes may help assess possibility of ID. *Other non-acute coronary syndrome conditions such as CHF, myocarditis, pulmonary emboli, sepsis and cardiac surgery could result in myocardial damage and increased troponin levels. Performed By: #### TROPI #### [place] [address] HH Collected: 11/25/2017 Status: F Source: [facility] 5:49 PM [facility] REPOSITORY TYPE CODE TESTS RESULT OUT OF RANGE REFERENCE UNITS LAB HGB(LOINC) 12.0-16.0 G/dL Low Hgb 7.9 LAB HCT(LOINC) 34.0-46.0 % Low Hct 23.5 Performed By: #### HH #### [address] [address] BFCT Collected: 11/25/2017 Status: C Source: [facility] 9:58 AM [facility] REPOSITORY TYPE CODE TESTS RESULT OUT OF REFERENCE UNITS RANGE LAB BSORC(LOIN C) Body Dialysate Fluid Source Result Comment: Reference ranges have not been established for this body fluid. The test results must be integrated into the clinical context for interpretation. LAB BCLAR(LOINC) Clarity BF Clear LAB BCOLR(LOINC) Color BF Straw LAB BRBC(LOINC) /mm3 RBC BF 2 LAB BWBC(LOINC) /mm3 WBC BF 8 Performed By: #### BFCT #### [place] [address] Observed: 11/25/2017 Status: F Source: [facility] 9:58 AM [facility] REPOSITORY . MICRO - Microbiology PROCEDURE: Culture Body Fluid with Gram Stain [*1] SOURCE: Peritoneal Fluid BODY SITE: COLLECTED DATE/TIME: 11/25/2017 09:58 EDT RECEIVED DATE/TIME: 11/25/2017 15:56 EDT START DATE/TIME: 11/25/2017 15:56 EDT FREE TEXT SOURCE: FINAL REPORTS Final Report [] Verified Date/Time/Personnel: 11/30/2017 15:59 EDT Culture: No Growth at 5 days. PRELIMINARY REPORTS Preliminary Report [] Verified Date/Time/Personnel: 11/25/2017 16:59 EDT Culture has been received in lab and is no growth to date. Routine cultures are held for 5 days. STAINS GS [] Verified Date/Time/Personnel: 11/25/2017 21:35 EDT Sedimented Rare Polymorphonuclear cells Rare Mononuclear cells No organisms seen. Performing Locations *1: This test was performed at: [facility], [address] [place] [address], [facility] , [facility] Performed By: #### CBF #### [place] [address] HFP Collected: 11/25/2017 Status: F Source: [facility] 9:28 AM [facility] REPOSITORY TYPE CODE TESTS RESULT OUT OF REFERENCE UNITS RANGE LAB PROT(LOINC) 6.0-8.5 G/dL Total Protein 6.0 LAB ALB(LOINC) 3.2-4.8 G/dL Low Albumin Level 1.8 LAB GLB(LOINC) 1.5-3.8 G/dL High Globulin 4.2 LAB AG(LOINC) 0.9-1.6 ratio Low A/G Ratio 0.4 LAB BILT(LOINC) 0.2-1.2 mg/dL Bili Total 0.5 LAB BILAD(LOINC 0.0-0.4 mg/dL ) Bili Direct 0.3 LAB BILI(LOINC) 0.1-10.0 mg/dL Bili Indirect 0.2 Result Comment: Calculated by Rule LAB AP(LOINC) 38-126 U/L High Alk Phos 231 LAB AST(LOINC) 8-34 U/L AST/SGOT 23 LAB ALT(LOINC) 10-49 U/L High ALT/SGPT 188 Performed By: #### LAC, HFP #### [place] [address] HH Collected: 11/25/2017 Status: F Source: [facility] 9:26 AM [facility] REPOSITORY TYPE CODE TESTS RESULT OUT OF RANGE REFERENCE UNITS LAB HGB(LOINC) 12.0-16.0 G/dL Low Hgb 8.2 LAB HCT(LOINC) 34.0-46.0 % Low Hct 24.3 Performed By: #### HH #### [place] [address] LAC Collected: 11/25/2017 Status: F Source: [facility] 9:26 AM [facility] REPOSITORY TYPE CODE TESTS RESULT OUT OF REFERENCE UNITS RANGE LAB LAC(LOINC) 0.2-2.0 mmol/L Lactic Acid 1.7 Lvl Performed By: #### LAC, HFP #### [place] [address] MG Collected: 11/25/2017 Status: F Source: [facility] 9:26 AM [facility] REPOSITORY TYPE CODE TESTS RESULT OUT OF REFERENCE UNITS RANGE LAB MG(LOINC) 1.6-2.4 mg/dL High Magnesium Lvl 3.1 Performed By: #### MG, GFR, BMP #### [place] [address] .GFR Collected: 11/25/2017 Status: F Source: [facility] 9:26 AM [facility] REPOSITORY TYPE CODE TESTS RESULT OUT OF REFERENCE UNITS RANGE LAB GFRAA(LOINC ml/min/1.73 ) sqm GFR 4 Haitian Result Comment: GFR Population mean for , Non- Americans Ages 20-29 = 116 mL/min/1.73 sq.m. Ages 30-39 = 107 mL/min/1.73 sq.m. Ages 40-49 = 99 mL/min/1.73 sq.m. Ages 50-59 = 93 mL/min/1.73 sq.m. Ages 60-69 = 85 mL/min/1.73 sq.m. Ages 70+ = 75 mL/min/1.73 sq.m. Chronic Kidney Disease: Less than 60 mL/min/1.73 square meters End Stage Renal Disease: Less than 15 mL/min/1.73 square meters LAB GFRNO(LOINC) ml/min/1.73sqm GFR Non- 4 Result Comment: GFR Population mean for , Non- Americans Ages 20-29 = 116 mL/min/1.73 sq.m. Ages 30-39 = 107 mL/min/1.73 sq.m. Ages 40-49 = 99 mL/min/1.73 sq.m. Ages 50-59 = 93 mL/min/1.73 sq.m. Ages 60-69 = 85 mL/min/1.73 sq.m. Ages 70+ = 75 mL/min/1.73 sq.m. Chronic Kidney Disease: Less than 60 mL/min/1.73 square meters End Stage Renal Disease: Less than 15 mL/min/1.73 square meters Performed By: #### MG, GFR, BMP #### [place] [address] BMP Collected: 11/25/2017 Status: F Source: [facility] 9:26 AM [facility] REPOSITORY TYPE CODE TESTS RESULT OUT OF RANGE REFERENCE UNITS LAB GLU(LOINC) 70-110 mg/dL High Glucose Level 337 LAB NA(LOINC) 136-145 mEq/L Sodium Level 138 LAB K(LOINC) 3.5-5.0 mEq/L Potassium Level 4.4 LAB CL(LOINC) 98-110 mEq/L Low Chloride 92 LAB CO2(LOINC) 22-32 mEq/L CO2 23 LAB EBAL(LOINC 4.0-15.0 mEq/L ) High Electrolyte Balance 23.0 LAB BUN(LOINC) 8.0-22.0 mg/dL BUN Abnormal 118.0 Alert LAB CRE(LOINC) 0.50-1.20 mg/dL High Creatinine Lvl (s) 11.40 LAB BC(LOINC) 10.0-22.0 ratio BUN/Creatinine 10.4 Ratio LAB CA(LOINC) 8.4-10.1 mg/dL Calcium Lvl 8.6 Performed By: #### MG, GFR, BMP #### [place] [address] HH Collected: 11/25/2017 Status: F Source: [facility] 7:01 AM [facility] REPOSITORY TYPE CODE TESTS RESULT OUT OF RANGE REFERENCE UNITS LAB HGB(LOINC) 12.0-16.0 G/dL Low Hgb 7.2 LAB HCT(LOINC) 34.0-46.0 % Low Hct 21.8 Performed By: #### HH #### [place] [address] XR CHEST 1 VIEW Observed: 11/25/2017 Status: F Source: [facility] 5:03 AM [facility] REPOSITORY ORIGINAL XR CHEST 1 VIEW Clinical Statement: Chest pain COMPARISON: 11/23/2017 FINDINGS: Bibasilar airspace disease is unchanged. No pneumothorax. The cardiac size is stable. The osseous structures are unchanged. There is a curvilinear lucency in the RIGHT hemidiaphragm concerning for pneumoperitoneum. IMPRESSION: Possible pneumoperitoneum. If there has not been recent surgery, further evaluation with a decubitus x-ray of the abdomen is recommended. IMPORTANT. PHYSICIAN INPUT NECESSARY. Interpreted By: Adin Guevara Preliminary Report By: Adin Guevara Electronically Signed By: Adin Guevara Dictated Date: 11/25/2017 7:47:08 AM Prelim Date: 11/25/2017 7:47:08 AM Sign Date: 11/25/2017 7:49:26 AM .GFR Collected: 11/25/2017 Status: F Source: [employer] 4:22 AM [facility] REPOSITORY TYPE CODE TESTS RESULT OUT OF REFERENCE UNITS RANGE LAB GFRAA(LOINC ml/min/1.73 ) sqm GFR 4 [place] Result Comment: GFR Population mean for , Non- Americans Ages 20-29 = 116 mL/min/1.73 sq.m. Ages 30-39 = 107 mL/min/1.73 sq.m. Ages 40-49 = 99 mL/min/1.73 sq.m. Ages 50-59 = 93 mL/min/1.73 sq.m. Ages 60-69 = 85 mL/min/1.73 sq.m. Ages 70+ = 75 mL/min/1.73 sq.m. Chronic Kidney Disease: Less than 60 mL/min/1.73 square meters End Stage Renal Disease: Less than 15 mL/min/1.73 square meters LAB GFRNO(LOINC) ml/min/1.73sqm GFR Non- 4 Result Comment: GFR Population mean for , Non- Americans Ages 20-29 = 116 mL/min/1.73 sq.m. Ages 30-39 = 107 mL/min/1.73 sq.m. Ages 40-49 = 99 mL/min/1.73 sq.m. Ages 50-59 = 93 mL/min/1.73 sq.m. Ages 60-69 = 85 mL/min/1.73 sq.m. Ages 70+ = 75 mL/min/1.73 sq.m. Chronic Kidney Disease: Less than 60 mL/min/1.73 square meters End Stage Renal Disease: Less than 15 mL/min/1.73 square meters Performed By: #### GFR, FES, FERR, RFP, HFP, CBC, DIFF, MORPH #### [place] [id number] FES Collected: 11/25/2017 Status: F Source: [employer] 4:22 AM [facility] REPOSITORY TYPE CODE TESTS RESULT OUT OF RANGE REFERENCE UNITS LAB FE(LOINC) 37-170 mcg/dL Low Iron 14 LAB IBC(LOINC) 250-500 mcg/dL Low TIBC 173 LAB FESAT(LOINC % ) Iron Sat 8 Performed By: #### GFR, FES, FERR, RFP, HFP, CBC, DIFF, MORPH #### [address] [address] FERR Collected: 11/25/2017 Status: F Source: [facility] 4:22 AM [facility] REPOSITORY TYPE CODE TESTS RESULT OUT OF REFERENCE UNITS RANGE LAB FERR(LOINC) 8-252 ng/mL High Ferritin 2627 Performed By: #### GFR, FES, FERR, RFP, HFP, CBC, DIFF, MORPH #### [address] [id number] RFP Collected: 11/25/2017 Status: F Source: [facility] 4:22 AM [facility] REPOSITORY TYPE CODE TESTS RESULT OUT OF RANGE REFERENCE UNITS LAB GLU(LOINC) 70-110 mg/dL High Glucose Level 236 LAB NA(LOINC) 136-145 mEq/L Sodium Level 138 LAB K(LOINC) 3.5-5.0 mEq/L Potassium Level 4.3 LAB CL(LOINC) 98-110 mEq/L Low Chloride 93 LAB CO2(LOINC) 22-32 mEq/L Low CO2 21 LAB EBAL(LOINC 4.0-15.0 mEq/L ) High Electrolyte Balance 24.0 LAB BUN(LOINC) 8.0-22.0 mg/dL BUN Abnormal 123.0 Alert LAB CRE(LOINC) 0.50-1.20 mg/dL High Creatinine Lvl (s) 11.60 LAB BC(LOINC) 10.0-22.0 ratio BUN/Creatinine 10.6 Ratio LAB CA(LOINC) 8.4-10.1 mg/dL Calcium Lvl 8.7 LAB PHOS(LOINC 2.5-4.5 mg/dL ) Phosphorus Abnormal 10.9 Alert LAB ALB(LOINC) 3.2-4.8 G/dL Low Albumin Level 1.8 Performed By: #### GFR, FES, FERR, RFP, HFP, CBC, DIFF, MORPH #### [address] [address] HFP Collected: 11/25/2017 Status: F Source: [facility] 4:22 AM [facility] REPOSITORY TYPE CODE TESTS RESULT OUT OF REFERENCE UNITS RANGE LAB PROT(LOINC) 6.0-8.5 G/dL Low Total Protein 5.7 LAB ALB(LOINC) 3.2-4.8 G/dL Low Albumin Level 1.8 LAB GLB(LOINC) 1.5-3.8 G/dL High Globulin 3.9 LAB AG(LOINC) 0.9-1.6 ratio Low A/G Ratio 0.5 LAB BILT(LOINC) 0.2-1.2 mg/dL Bili Total 0.6 LAB BILAD(LOINC 0.0-0.4 mg/dL ) Bili Direct 0.3 LAB BILI(LOINC) 0.1-10.0 mg/dL Bili Indirect 0.3 Result Comment: Calculation Performed by Rule LAB AP(LOINC) 38-126 U/L High Alk Phos 237 LAB AST(LOINC) 8-34 U/L AST/SGOT 24 LAB ALT(LOINC) 10-49 U/L High ALT/SGPT 180 Performed By: #### GFR, FES, FERR, RFP, HFP, CBC, DIFF, MORPH #### [address] [address] CBC Collected: 11/25/2017 Status: F Source: [facility] 4:22 AM [facility] REPOSITORY TYPE CODE TESTS RESULT OUT OF REFERENCE UNITS RANGE LAB WBC(LOINC) 4.50-10.80 10 3/mcL High WBC 26.10 LAB RBCCT(LOINC 4.10-5.30 10 6/mcL ) Low RBC 2.46 LAB HGB(LOINC) 12.0-16.0 G/dL Low Hgb 7.4 LAB HCT(LOINC) 34.0-46.0 % Low Hct 22.3 LAB MCV(LOINC) 80.0-99.0 fL MCV 90.7 LAB MCH(LOINC) 27.0-33.0 pg MCH 30.2 LAB MCHC(LOINC) 32.0-36.0 G/dL MCHC 33.3 LAB RDW(LOINC) 11.5-15.5 % High RDW 16.4 LAB PLT(LOINC) 150-450 10 3/mcL Platelet 403 LAB MPV(LOINC) 6.6-10.5 fL MPV 8.1 Performed By: #### GFR, FES, FERR, RFP, HFP, CBC, DIFF, MORPH #### [address] [address] .MANUAL DIFF Collected: 11/25/2017 Status: F Source: [facility] 4:22 AM [facility] REPOSITORY TYPE CODE TESTS RESULT OUT OF REFERENCE UNITS RANGE LAB LIMIT(LOIN C) Cells Counted 100 LAB NEUM(LOINC 50.0-75.0 % ) High Neutrophil %, 91.0 Manual LAB LYMM(LOINC 20.0-40.0 % ) Low Lymphocyte %, 4.0 Manual LAB MONM(LOINC 2.0-13.0 % ) Monocyte %, Manual 4.0 LAB EOM(LOINC) 0.0-6.0 % Eosinophil %, 0.0 Manual LAB BASM(LOINC 0.0-2.5 % ) Basophil %, Manual 0.0 LAB BAND(LOINC 0.0-5.0 % ) Bands 1.0 LAB ANEUM(LOIN 2.25-8.10 10 3/mcL C) High Neutrophil, Abs 24.01 Manual LAB ABLYMM(LIZETT 0.90-4.32 10 3/mcL NC) Lymphocyte, Abs 1.04 Manual LAB AMONM(LOIN 0.09-1.40 10 3/mcL C) Monocyte, Abs 1.04 Manual LAB AEOSM(LOIN 0.00-0.65 10 3/mcL C) Eosinophil, Abs 0.00 Manual LAB ABASM(LOIN 0.00-0.27 10 3/mcL C) Basophil, Abs 0.00 Manual Performed By: #### GFR, FES, FERR, RFP, HFP, CBC, DIFF, MORPH #### [place] [id number] .MORPH Collected: 11/25/2017 Status: F Source: [facility] 4:22 AM [facility] REPOSITORY TYPE CODE TESTS RESULT OUT OF REFERENCE UNITS RANGE LAB PLTE(LOINC ) Platelet Estimate Normal LAB ANIS(LOINC ) Anisocytosis Slight LAB POIK(LOINC ) Poik Slight LAB HYPC(LOINC ) Hypochrom Slight LAB POLC(LOINC ) Polychrom Slight Performed By: #### GFR, FES, FERR, RFP, HFP, CBC, DIFF, MORPH #### [place] [address] HH Collected: 11/24/2017 Status: F Source: [facility] 6:32 PM [facility] REPOSITORY TYPE CODE TESTS RESULT OUT OF RANGE REFERENCE UNITS LAB HGB(LOINC) 12.0-16.0 G/dL Low Hgb 7.8 LAB HCT(LOINC) 34.0-46.0 % Low Hct 23.4 Performed By: #### #### [address] [address] Collected: 11/24/2017 Status: F Source: [facility] 12:16 PM [facility]POS[facility] TYPE CODE TESTS RESULT OUT OF RANGE REFERENCE UNITS LAB HGB(LOINC) 12.0-16.0 G/dL Low Hgb 7.3 LAB HCT(LOINC) 34.0-46.0 % Low Hct 22.3 Performed By: #### HH #### [place] [address] Observed: 11/24/2017 Status: F Source: [facility] 5:39 AM [facility] REPOSITORY . MICRO - Microbiology PROCEDURE: Legionella Urine Ag [*1] SOURCE: Urine BODY SITE: COLLECTED DATE/TIME: 11/24/2017 05:39 EDT RECEIVED DATE/TIME: 11/24/2017 05:50 EDT START DATE/TIME: 11/24/2017 05:50 EDT FREE TEXT SOURCE: FINAL REPORTS Final Report [] Verified Date/Time/Personnel: 11/24/2017 06:10 EDT Presumptive negative for L. pneumophila serogroup 1 antigen in urine, suggesting no recent or current infection. Legionnaire's disease cannot be ruled out since other serogroups and species may also cause disease. Performing Locations *1: This test was performed at: [facility], [address] [place] [address], [address] [place] [address] Performed By: #### COLETTE #### [place] [id number] Observed: 11/24/2017 Status: F Source: [facility] 5:39 AM [facility] REPOSITORY . MICRO - Microbiology PROCEDURE: Streptococcus Pneumoniae Urine Antig [^1 *1] SOURCE: Urine BODY SITE: COLLECTED DATE/TIME: 11/24/2017 05:39 EDT RECEIVED DATE/TIME: 11/24/2017 05:50 EDT START DATE/TIME: 11/24/2017 05:51 EDT FREE TEXT SOURCE: FINAL REPORTS Final Report [] Verified Date/Time/Personnel: 11/24/2017 06:10 EDT Presumptive negative for pneumococcal pneumonia, suggesting no current or recent pneumococcal infection. Infection due to Strep pneumoniae cannot be ruled out since the antigen present in the sample may be below the detection limit of the test. Interpretive Data ^1: Streptococcus Pneumoniae Urine Antig This test has not been evaluated on patients taking antibiotics for greater than 24 hours or on patients who have recently completed an antibiotic regimen. The accuracy of this test has not been proven in young children. Performing Locations *1: This test was performed at: [facility], [address] [place] [address], [address] [place] [address] Performed By: #### SPAG #### [place] [address] CBC Collected: 11/24/2017 Status: F Source: [facility] 4:22 AM [facility] REPOSITORY TYPE CODE TESTS RESULT OUT OF REFERENCE UNITS RANGE LAB WBC(LOINC) 4.50-10.80 10 3/mcL High WBC 26.40 LAB RBCCT(LOINC 4.10-5.30 10 6/mcL ) Low RBC 2.50 LAB HGB(LOINC) 12.0-16.0 G/dL Low Hgb 7.7 LAB HCT(LOINC) 34.0-46.0 % Low Hct 22.4 LAB MCV(LOINC) 80.0-99.0 fL MCV 89.6 LAB MCH(LOINC) 27.0-33.0 pg MCH 30.7 LAB MCHC(LOINC) 32.0-36.0 G/dL MCHC 34.3 LAB RDW(LOINC) 11.5-15.5 % High RDW 15.6 LAB PLT(LOINC) 150-450 10 3/mcL Platelet 382 LAB MPV(LOINC) 6.6-10.5 fL MPV 8.4 Performed By: #### CBC, MG, GFR, BMP, DIFF, MORPH, PHOS #### [address] [address] MG Collected: 11/24/2017 Status: F Source: [facility] 4:22 AM [facility] REPOSITORY TYPE CODE TESTS RESULT OUT OF REFERENCE UNITS RANGE LAB MG(LOINC) 1.6-2.4 mg/dL High Magnesium Lvl 3.0 Performed By: #### CBC, MG, GFR, BMP, DIFF, MORPH, PHOS #### [address] [address] .GFR Collected: 11/24/2017 Status: F Source: [facility] 4:22 AM [facility] REPOSITORY TYPE CODE TESTS RESULT OUT OF REFERENCE UNITS RANGE LAB GFRAA(LOINC ml/min/1.73 ) sqm GFR 4 Haitian Result Comment: GFR Population mean for , Non- Americans Ages 20-29 = 116 mL/min/1.73 sq.m. Ages 30-39 = 107 mL/min/1.73 sq.m. Ages 40-49 = 99 mL/min/1.73 sq.m. Ages 50-59 = 93 mL/min/1.73 sq.m. Ages 60-69 = 85 mL/min/1.73 sq.m. Ages 70+ = 75 mL/min/1.73 sq.m. Chronic Kidney Disease: Less than 60 mL/min/1.73 square meters End Stage Renal Disease: Less than 15 mL/min/1.73 square meters LAB GFRNO(LOINC) ml/min/1.73sqm GFR Non- 4 Result Comment: GFR Population mean for , Non- Americans Ages 20-29 = 116 mL/min/1.73 sq.m. Ages 30-39 = 107 mL/min/1.73 sq.m. Ages 40-49 = 99 mL/min/1.73 sq.m. Ages 50-59 = 93 mL/min/1.73 sq.m. Ages 60-69 = 85 mL/min/1.73 sq.m. Ages 70+ = 75 mL/min/1.73 sq.m. Chronic Kidney Disease: Less than 60 mL/min/1.73 square meters End Stage Renal Disease: Less than 15 mL/min/1.73 square meters Performed By: #### CBC, MG, GFR, BMP, DIFF, MORPH, PHOS #### [facility] [address] [place] [address] BMP Collected: 11/24/2017 Status: F Source: [facility] 4:22 AM [facility] REPOSITORY TYPE CODE TESTS RESULT OUT OF RANGE REFERENCE UNITS LAB GLU(LOINC) 70-110 mg/dL High Glucose Level 254 LAB NA(LOINC) 136-145 mEq/L Sodium Level 139 LAB K(LOINC) 3.5-5.0 mEq/L Potassium Level 4.5 LAB CL(LOINC) 98-110 mEq/L Low Chloride 92 LAB CO2(LOINC) 22-32 mEq/L CO2 23 LAB EBAL(LOINC 4.0-15.0 mEq/L ) High Electrolyte Balance 24.0 LAB BUN(LOINC) 8.0-22.0 mg/dL BUN Abnormal 132.0 Alert LAB CRE(LOINC) 0.50-1.20 mg/dL High Creatinine Lvl (s) 11.40 LAB BC(LOINC) 10.0-22.0 ratio BUN/Creatinine 11.6 Ratio LAB CA(LOINC) 8.4-10.1 mg/dL Calcium Lvl 8.4 Performed By: #### CBC, MG, GFR, BMP, DIFF, MORPH, PHOS #### [place] [address] .MANUAL DIFF Collected: 11/24/2017 Status: F Source: [facility] 4:22 AM [facility] REPOSITORY TYPE CODE TESTS RESULT OUT OF REFERENCE UNITS RANGE LAB LIMIT(LOIN C) Cells Counted 100 LAB NEUM(LOINC 50.0-75.0 % ) High Neutrophil %, 89.0 Manual LAB LYMM(LOINC 20.0-40.0 % ) Low Lymphocyte %, 6.0 Manual LAB MONM(LOINC 2.0-13.0 % ) Monocyte %, Manual 5.0 LAB EOM(LOINC) 0.0-6.0 % Eosinophil %, 0.0 Manual LAB BASM(LOINC 0.0-2.5 % ) Basophil %, Manual 0.0 LAB ANEUM(LOIN 2.25-8.10 10 3/mcL C) High Neutrophil, Abs 23.50 Manual LAB ABLYMM(LIZETT 0.90-4.32 10 3/mcL NC) Lymphocyte, Abs 1.58 Manual LAB AMONM(LOIN 0.09-1.40 10 3/mcL C) Monocyte, Abs 1.32 Manual LAB AEOSM(LOIN 0.00-0.65 10 3/mcL C) Eosinophil, Abs 0.00 Manual LAB ABASM(LOIN 0.00-0.27 10 3/mcL C) Basophil, Abs 0.00 Manual Performed By: #### CBC, MG, GFR, BMP, DIFF, MORPH, PHOS #### [place] [address] .MORPH Collected: 11/24/2017 Status: F Source: [facility] 4:22 AM [facility] REPOSITORY TYPE CODE TESTS RESULT OUT OF REFERENCE UNITS RANGE LAB PLTE(LOINC) Platelet Normal Estimate Result Comment: Few large platelets seen. LAB ANIS(LOINC) Anisocytosis Slight LAB POIK(LOINC) Poik Slight LAB HYPC(LOINC) Hypochrom Slight LAB POLC(LOINC) Polychrom Slight Performed By: #### CBC, MG, GFR, BMP, DIFF, MORPH, PHOS #### [place] [address] PHOS Collected: 11/24/2017 Status: F Source: [facility] 4:22 AM [facility] REPOSITORY TYPE CODE TESTS RESULT OUT OF RANGE REFERENCE UNITS LAB PHOS(LOINC 2.5-4.5 mg/dL ) Abnormal Phosphorus 10.4 Alert Performed By: #### CBC, MG, GFR, BMP, DIFF, MORPH, PHOS #### [place] [address] HH Collected: 11/23/2017 Status: F Source: [facility] 11:42 PM [facility] REPOSITORY TYPE CODE TESTS RESULT OUT OF RANGE REFERENCE UNITS LAB HGB(LOINC) 12.0-16.0 G/dL Low Hgb 7.1 LAB HCT(LOINC) 34.0-46.0 % Low Hct 21.2 Performed By: #### HH #### [place] [address] HH Collected: 11/23/2017 Status: F Source: [facility] 5:51 PM [facility] REPOSITORY TYPE CODE TESTS RESULT OUT OF RANGE REFERENCE UNITS LAB HGB(LOINC) 12.0-16.0 G/dL Low Hgb 7.1 LAB HCT(LOINC) 34.0-46.0 % Low Hct 21.3 Performed By: #### HH #### [place] [address] RBC (PRODUCT) Collected: 11/23/2017 Status: F Source: [facility] 5:47 PM [facility] REPOSITORY Order Comment: HOLD 1 unit PRBCs TYPE CODE TESTS RESULT OUT OF REFERENCE UNITS RANGE LAB RBCPR(LOINC ) RBC Product RBC Ready Ready for Pickup Performed By: #### RBCP #### [address] [address] HH Collected: 11/23/2017 Status: F Source: [facility] 12:09 PM [facility] REPOSITORY TYPE CODE TESTS RESULT OUT OF RANGE REFERENCE UNITS LAB HGB(LOINC) 12.0-16.0 G/dL Low Hgb 7.0 LAB HCT(LOINC) 34.0-46.0 % Low Hct 20.9 Performed By: #### HH #### [place] [address] MYCO Collected: 11/23/2017 Status: F Source: [facility] 12:09 PM [facility] REPOSITORY TYPE CODE TESTS RESULT OUT OF REFERENCE UNITS RANGE LAB AMYCM(LOIN C) Mycoplasma IgM Negative Result Comment: INTERPRETATION OF MYCOPLASMA BY EIA (Effective 02/23/04): Negative No detectable antibodies to M. pneumoniae. Indicates absence of current or previous infection. Positive Reactive for antibodies to M. pneumoniae. Indicates a past or recent infection. Equivocal Equivocal for antibodies to M. pneumoniae. Repeat testing by an alternate method suggested. LAB AMYCG(LOINC) Mycoplasma IgG Pos Result Comment: INTERPRETATION OF MYCOPLASMA BY EIA (Effective 02/23/04): Negative No detectable antibodies to M. pneumoniae. Indicates absence of current or previous infection. Positive Reactive for antibodies to M. pneumoniae. Indicates a past or recent infection. Equivocal Equivocal for antibodies to M. pneumoniae. Repeat testing by an alternate method suggested. Performed By: #### MYCO #### [place] [address] US ABDOMEN LIMITED Observed: 11/23/2017 Status: F Source: [facility] 9:30 AM [facility] REPOSITORY ORIGINAL Limited ultrasound of the abdomen HISTORY: Elevated liver function test COMPARISON: No recent prior exam available. There is a 9 mm ovoid hypoechoic structure identified at or adjacent to the head of the pancreas. This is probably a small lymph node. No intrinsic pancreatic abnormality is evident. No focal liver lesion is evident. No biliary dilatation. The common duct is normal, 2 mm in diameter. Patient is status post cholecystectomy. No free fluid, no other contributory finding. IMPRESSION: 1. No acute process. 2. Small hypoechoic ovoid lesion suspected to be adjacent to the pancreatic head most compatible with a small lymph node. Interpreted By: Adin Orozco MD Preliminary Report By: Adin Orozco MD Electronically Signed By: Adin Orozco MD Dictated Date: 11/23/2017 4:55:54 PM Prelim Date: 11/23/2017 4:55:54 PM Sign Date: 11/23/2017 4:57:18 PM CBC Collected: 11/23/2017 Status: F Source: [facility] 4:18 AM [facility] REPOSITORY TYPE CODE TESTS RESULT OUT OF REFERENCE UNITS RANGE LAB WBC(LOINC) 4.50-10.80 10 3/mcL High WBC 33.90 LAB RBCCT(LOINC 4.10-5.30 10 6/mcL ) Low RBC 2.37 LAB HGB(LOINC) 12.0-16.0 G/dL Low Hgb 7.1 LAB HCT(LOINC) 34.0-46.0 % Low Hct 20.9 LAB MCV(LOINC) 80.0-99.0 fL MCV 87.9 LAB MCH(LOINC) 27.0-33.0 pg MCH 29.9 LAB MCHC(LOINC) 32.0-36.0 G/dL MCHC 33.9 LAB RDW(LOINC) 11.5-15.5 % High RDW 15.9 LAB PLT(LOINC) 150-450 10 3/mcL Platelet 374 LAB MPV(LOINC) 6.6-10.5 fL MPV 8.4 Performed By: #### CBC, PRO, MG, PHOS, DIFF, MORPH #### [place] [address] PRO Collected: 11/23/2017 Status: F Source: [facility] 4:18 AM [facility] REPOSITORY TYPE CODE TESTS RESULT OUT OF REFERENCE UNITS RANGE LAB PT(LOINC) 9.0-14.5 seconds Protime 14.4 Result Comment: Effective 09/01/07, Protime results may be affected by some antibiotics (i.e. Ciprofloxacin, Azithromycin, Bactrim) which may potentiate the action of oral anticoagulants, with further increases in Protime/INR. LAB INR(LOINC) ratio PT International Ratio 1.2 Result Comment: The [employer] (CHEST, 1992, 102:312S-25S) recommended therapeutic range for oral anticoagulant therapy is: LOW RISK: Prophylaxis of venous thrombosis INR: 2.0-3.0 Treatment of pulmonary embolism 2.0-3.0 Prevention of systemic embolism 2.0-3.0 HIGH RISK: Mechanical prosthetic valves 2.5-3.5 Performed By: #### CBC, PRO, MG, PHOS, DIFF, MORPH #### [place] [address] MG Collected: 11/23/2017 Status: F Source: [facility] 4:18 AM [facility] REPOSITORY TYPE CODE TESTS RESULT OUT OF REFERENCE UNITS RANGE LAB MG(LOINC) 1.6-2.4 mg/dL High Magnesium Lvl 2.8 Performed By: #### CBC, PRO, MG, PHOS, DIFF, MORPH #### [place] [address] PHOS Collected: 11/23/2017 Status: F Source: [facility] 4:18 AM [facility] REPOSITORY TYPE CODE TESTS RESULT OUT OF RANGE REFERENCE UNITS LAB PHOS(LOINC 2.5-4.5 mg/dL ) Abnormal Phosphorus 9.7 Alert Performed By: #### CBC, PRO, MG, PHOS, DIFF, MORPH #### [place] [id number] .MANUAL DIFF Collected: 11/23/2017 Status: F Source: [facility] 4:18 AM [facility] REPOSITORY TYPE CODE TESTS RESULT OUT OF REFERENCE UNITS RANGE LAB LIMIT(LOIN C) Cells Counted 100 LAB NEUM(LOINC 50.0-75.0 % ) High Neutrophil %, 90.0 Manual LAB LYMM(LOINC 20.0-40.0 % ) Low Lymphocyte %, 5.0 Manual LAB MONM(LOINC 2.0-13.0 % ) Monocyte %, Manual 5.0 LAB EOM(LOINC) 0.0-6.0 % Eosinophil %, 0.0 Manual LAB BASM(LOINC 0.0-2.5 % ) Basophil %, Manual 0.0 LAB ANEUM(LOIN 2.25-8.10 10 3/mcL C) High Neutrophil, Abs 30.51 Manual LAB ABLYMM(LIZETT 0.90-4.32 10 3/mcL NC) Lymphocyte, Abs 1.70 Manual LAB AMONM(LOIN 0.09-1.40 10 3/mcL C) High Monocyte, Abs 1.70 Manual LAB AEOSM(LOIN 0.00-0.65 10 3/mcL C) Eosinophil, Abs 0.00 Manual LAB ABASM(LOIN 0.00-0.27 10 3/mcL C) Basophil, Abs 0.00 Manual Performed By: #### CBC, PRO, MG, PHOS, DIFF, MORPH #### [address] [address] .MORPH Collected: 11/23/2017 Status: F Source: [facility] 4:18 AM [facility] REPOSITORY TYPE CODE TESTS RESULT OUT OF REFERENCE UNITS RANGE LAB PLTE(LOINC ) Platelet Estimate Normal LAB ANIS(LOINC ) Anisocytosis Slight LAB POLC(LOINC ) Polychrom Slight Performed By: #### CBC, PRO, MG, PHOS, DIFF, MORPH #### [place] [address] .GFR Collected: 11/23/2017 Status: F Source: [facility] 4:18 AM [facility] REPOSITORY TYPE CODE TESTS RESULT OUT OF REFERENCE UNITS RANGE LAB GFRAA(LOINC ml/min/1.73 ) sqm GFR 4 Haitian Result Comment: GFR Population mean for , Non- Americans Ages 20-29 = 116 mL/min/1.73 sq.m. Ages 30-39 = 107 mL/min/1.73 sq.m. Ages 40-49 = 99 mL/min/1.73 sq.m. Ages 50-59 = 93 mL/min/1.73 sq.m. Ages 60-69 = 85 mL/min/1.73 sq.m. Ages 70+ = 75 mL/min/1.73 sq.m. Chronic Kidney Disease: Less than 60 mL/min/1.73 square meters End Stage Renal Disease: Less than 15 mL/min/1.73 square meters LAB GFRNO(LOINC) ml/min/1.73sqm GFR Non- 4 Result Comment: GFR Population mean for , Non- Americans Ages 20-29 = 116 mL/min/1.73 sq.m. Ages 30-39 = 107 mL/min/1.73 sq.m. Ages 40-49 = 99 mL/min/1.73 sq.m. Ages 50-59 = 93 mL/min/1.73 sq.m. Ages 60-69 = 85 mL/min/1.73 sq.m. Ages 70+ = 75 mL/min/1.73 sq.m. Chronic Kidney Disease: Less than 60 mL/min/1.73 square meters End Stage Renal Disease: Less than 15 mL/min/1.73 square meters Performed By: #### GFR, CMP #### [address] [address] CMP Collected: 11/23/2017 Status: F Source: [facility] 4:18 AM [facility] REPOSIT[facility] TYPE CODE TESTS RESULT OUT OF RANGE REFERENCE UNITS LAB GLU(LOINC) 70-110 mg/dL High Glucose Level 284 LAB NA(LOINC) 136-145 mEq/L Sodium Level 136 LAB K(LOINC) 3.5-5.0 mEq/L Potassium Level 4.7 LAB CL(LOINC) 98-110 mEq/L Low Chloride 91 LAB CO2(LOINC) 22-32 mEq/L CO2 24 LAB EBAL(LOINC 4.0-15.0 mEq/L ) High Electrolyte Balance 21.0 LAB BUN(LOINC) 8.0-22.0 mg/dL BUN Abnormal 138.0 Alert LAB CRE(LOINC) 0.50-1.20 mg/dL High Creatinine Lvl (s) 11.20 LAB BC(LOINC) 10.0-22.0 ratio BUN/Creatinine 12.3 Ratio LAB CA(LOINC) 8.4-10.1 mg/dL Low Calcium Lvl 8.2 LAB PROT(LOINC 6.0-8.5 G/dL ) Low Total Protein 5.7 LAB ALB(LOINC) 3.2-4.8 G/dL Low Albumin Level 1.7 LAB GLB(LOINC) 1.5-3.8 G/dL High Globulin 4.0 LAB AG(LOINC) 0.9-1.6 ratio Low A/G Ratio 0.4 LAB BILT(LOINC 0.2-1.2 mg/dL ) Bili Total 0.6 LAB AP(LOINC) 38-126 U/L High Alk Phos 245 LAB AST(LOINC) 8-34 U/L High AST/SGOT 87 LAB ALT(LOINC) 10-49 U/L High ALT/SGPT 338 Performed By: #### GFR, CMP #### [address] [place] [address] EMERGENCY REPORT Observed: 11/23/2017 Status: F [facility] RE[facility] NAME ACCOUNT SEX AGE ADMIT DISCHARGE PT MED. RECORD# NUMBER DATE DATE TYPE COLLETTE KELLY [id number] F 46 10/27/17 10/27/17 3 [id number] ROOM: ER DATE OF : 1970 DICTATING PHYSICIAN: Selene Aleman HISTORY OF PRESENT ILLNESS: This is a 46-year-old woman with a history of end stage renal disease on peritoneal dialysis, insulin dependent diabetes and hypertension who presents with a 3-day history of right knee pain. The patient has noted that on Friday, she had a fall from a standing position landing on her right side. Patient denied head trauma, neck pain. Patient denied chest pain, shortness of breath, fever, chills, and other symptoms. Patient states that she has been hobbling with difficulty walking since the fall. Patient states that she has peripheral neuropathy and has a high tolerance for pain control and that Dilaudid is the only medication that works for her pain control. PAST MEDICAL HISTORY: Hypertension, insulin dependent diabetes, end stage renal disease on peritoneal dialysis daily. PAST SURGICAL HISTORY: Prior cyst removal and tumors. ALLERGIES: No known drug allergies with the exception of Bactrim and Lasix with unknown reactions. SOCIAL HISTORY: One pack per day smoking. Occasional alcohol. Denies drug use. REVIEW OF SYSTEMS: Ten systems reviewed and negative with the exception of right sided leg pain, arthralgias and myalgias. PHYSICAL EXAMINATION: Vitals: Blood pressure 185/98, pulse of 104, respiratory rate of 10, temperature of 98.7, O2 saturation 98% on room air. Patient's head normocephalic, atraumatic. Patient with no cervical lymphadenopathy. Patient's pupils equal, round, reactive to light and accommodation. Patient's oropharynx without edema or erythema noted. Patient's lungs are clear to auscultation bilaterally. Patient's heart with a regular rate and rhythm, no murmurs, rubs or gallops. Patient's abdomen soft, nontender, nondistended. Patient is moving all extremities. Patient with right sided knee pain. Tenderness to palpation in the patellar region medially and laterally. DIAGNOSTIC DATA: X-rays obtained and revealed no definitive fracture with no cortical irregularity noted. Patient with lucencies noted in areas of hyperechoic area throughout the x-ray particularly at the medial tibial region, ischium laterally, however, no definitive process was noted. Page 1 of 2 COLLETTE KELLY Emergency Room Report MEDICAL DECISION MAKING: This is a 46-year-old woman complaining of right-sided leg pain after a fall from a standing position. Differential includes acute fracture of right knee, right femur, right hip. EMERGENCY DEPARTMENT COURSE AND TREATMENT: Patient has been able to ambulate and was given Ramiro wrap for support of her right knee. Patient given Toradol, Percocet and Flexeril in the emergency department and prescription for these medications going home. Patient was discharged home in stable condition declining crutches, stating that she can walk without this and instructed to follow up with primary care provider for further pain management and further evaluation of symptoms with potential repeat imaging as needed in 5 days if symptoms persist. Patient discharged home in stable condition. Dictated By: Selene Aleman MD 10/27/17 21:06 JOB #: [id number] Transcribed By: damion 10/28/17 18:27 Electronically signed by: E-SIGN: Selene Aleman M.D. 11/23/17 03:32 Page 2 of 2 COLLETTE KELLY Emergency Room Report BG Collected: 11/23/2017 Status: F Source: [facility] 1:32 AM [facility] REPOSITORY TYPE CODE TESTS RESULT OUT OF REFERENCE UNITS RANGE LAB PH(LOINC) 7.380-7.460 pH 7.440 LAB PCO2(LOINC 32.0-46.0 mmHg ) pCO2 33.5 LAB PO2(LOINC) 74.0-108.0 mmHg pO2 76.4 LAB HCO3(LOINC 21.0-29.0 mmol/L ) HCO3 22.2 LAB TCO2(LOINC 22.0-30.0 mmol/L ) CO2 Totl 23.3 LAB BE(LOINC) mmol/L Base Excess -1.6 LAB O2SAT(LOIN 92.0-96.0 % C) O2 Sat 95.3 LAB BPRES(LOIN mmHg C) Barometric 734 Pressure Performed By: #### BG #### [place] [id number] XR CHEST 1 VIEW Observed: 11/23/2017 Status: F Source: [facility] 12:56 AM [facility] REPOSITORY ORIGINAL XR CHEST 1 VIEW CLINICAL STATEMENT: Shortness of breath COMPARISON: Chest radiograph 11/22/2017 FINDINGS: The endotracheal and enteric tubes have been removed. The cardiomediastinal contours are stable. There is redemonstration of a LEFT basilar lung consolidation. Subsegmental atelectasis is note d in the RIGHT lung base. There is no vascular congestion or pneumothorax. IMPRESSION: Extubation without change in aeration. Persistent LEFT basilar infiltrate. I have personally reviewed the images of this examination and agree with the resident's findings and interpretation. Interpreted By: Adin Guevara Preliminary Report By: Milagro Medina MD Electronically Signed By: Adin Guevara Dictated Date: 11/23/2017 1:03:23 AM Prelim Date: 11/23/2017 1:05:33 AM Sign Date: 11/23/2017 1:24:21 AM HGB Collected: 11/22/2017 Status: F Source: [facility] 11:30 PM [facility] REPOSITORY TYPE CODE TESTS RESULT OUT OF RANGE REFERENCE UNITS LAB HGB(LOINC) 12.0-16.0 G/dL Low Hgb 8.4 Performed By: #### HGB, HCT #### [address] [address] HCT Collected: 11/22/2017 Status: F Source: [facility] 11:30 PM [facility] REPOSITORY TYPE CODE TESTS RESULT OUT OF RANGE REFERENCE UNITS LAB HCT(LOINC) 34.0-46.0 % Low Hct 24.2 Performed By: #### HGB, HCT #### [address] [address] UA Collected: 11/22/2017 Status: F Source: [facility] 9:46 PM [facility] REPOSITORY TYPE CODE TESTS RESULT OUT OF RANGE REFERENCE UNITS LAB SPCUA(LIZETT NC) UA Specimen Type Clean Catch LAB CLRUA([place] NC) UA Color Yellow LAB APPUA([place] Clear NC) UA Appear Unknown Cloudy LAB SGUA(LOIN 1.006-1.029 C) UA Spec Grav 1.020 LAB GLUA(LOIN Negative mg/dL C) UA Glucose Unknown 500 LAB BILUA([place] Neg-Trace NC) UA Bili Negative LAB KETUA([place] Neg-Trace mg/dL NC) UA Ketones Negative LAB BLDUA([place] Neg-Trace NC) UA Blood Unknown Moderate LAB PHUA(LOIN 5.0 - 8.0 C) UA pH 5.0 LAB PROUA([place] Negative mg/dL NC) UA Protein Unknown 300 LAB UROUA([place] 0.2-1.0 E.U./dL NC) UA Urobilinogen 0.2 LAB NITUA([place] Negative NC) UA Nitrite Negative LAB LEUUA([place] Negative NC) UA Leuk Est Unknown Moderate Performed By: #### UA, UAMIC #### [place] [address] UAMIC Collected: 11/22/2017 Status: F Source: [facility] 9:46 PM [facility] REPOSITORY TYPE CODE TESTS RESULT OUT OF RANGE REFERENCE UNITS LAB RBCUA(LOIN 0-2 /hpf C) Unknown UA RBC 3-5 LAB WBCUA(LOIN 0-5 /hpf C) Unknown UA WBC 10-20 LAB EPIUA(LOIN 0-20 /hpf C) UA Squam Epithelial 0-2 LAB BACUA(LOIN Negative /hpf C) Unknown UA Bacteria 4+ LAB WAXC(LOINC /lpf ) Unknown UA Waxy Cast Rare Performed By: #### UA, UAMIC #### [place] [address] RBC (PRODUCT) Collected: 11/22/2017 Status: F Source: [facility] 7:56 PM [facility] REPOSITORY TYPE CODE TESTS RESULT OUT OF REFERENCE UNITS RANGE LAB RBCPR(LOINC ) RBC Product RBC Ready Ready for Pickup Performed By: #### RBCP #### [place] [address] HH Collected: 11/22/2017 Status: F Source: [facility] 6:43 PM [facility] REPOSITORY TYPE CODE TESTS RESULT OUT OF RANGE REFERENCE UNITS LAB HGB(LOINC) 12.0-16.0 G/dL Abnormal Alert Hgb 6.9 LAB HCT(LOINC) 34.0-46.0 % Low Hct 20.2 Performed By: #### HH #### [place] [address] HH Collected: 11/22/2017 Status: F Source: [facility] 12:14 PM [facility] REPOSITORY TYPE CODE TESTS RESULT OUT OF RANGE REFERENCE UNITS LAB HGB(LOINC) 12.0-16.0 G/dL Low Hgb 7.3 LAB HCT(LOINC) 34.0-46.0 % Low Hct 21.5 Performed By: #### HH #### [address] [address] XR CHEST 1 VIEW Observed: 11/22/2017 Status: F Source: [facility] 11:57 AM [facility] REPOSITORY ORIGINAL XR CHEST 1 VIEW PORTABLE AP supine DATE AND TIME: 11/22/2017 12:24 PM CLINICAL STATEMENT: New OG placed Enteric tube is seen coursing through the esophagus. Tip is in the region of the gastric fundus. Heart is upper normal in size. Consolidation in the LEFT lower lobe is similar to the study obtained chiquis ier today at 0613 hours. Endotracheal tube remains in good position. Interpreted By: Gunner Sierra MD Preliminary Report By: Gunner Sierra MD Electronically Signed By: Gunner Sierra MD Dictated Date: 11/22/2017 12:50:47 PM Prelim Date: 11/22/2017 12:50:47 PM Sign Date: 11/22/2017 12:52:03 PM BG Collected: 11/22/2017 Status: F Source: [facility] 6:57 AM [facility] REPOSITORY TYPE CODE TESTS RESULT OUT OF REFERENCE UNITS RANGE LAB PH(LOINC) 7.380-7.460 pH 7.410 LAB PCO2(LOINC 32.0-46.0 mmHg ) pCO2 35.3 LAB PO2(LOINC) 74.0-108.0 mmHg pO2 106.7 LAB HCO3(LOINC 21.0-29.0 mmol/L ) HCO3 21.9 LAB TCO2(LOINC 22.0-30.0 mmol/L ) CO2 Totl 23.0 LAB BE(LOINC) mmol/L Base Excess -2.4 LAB O2SAT(LOIN 92.0-96.0 % C) O2 Sat High 98.2 LAB BPRES(LOIN mmHg C) Barometric 733 Pressure Performed By: #### BG #### [facility] [address] [place] [id number] CAION Collected: 11/22/2017 Status: F Source: [facility] 5:17 AM [facility] REPOSITORY TYPE CODE TESTS RESULT OUT OF REFERENCE UNITS RANGE LAB CAION(LOINC 1.12-1.32 mmol/L ) Low Calcium 0.99 Ionized Performed By: #### MATTHEW LAC, HFP #### [place] [address] LAC Collected: 11/22/2017 Status: F Source: [facility] 5:17 AM [facility] REPOSITORY TYPE CODE TESTS RESULT OUT OF REFERENCE UNITS RANGE LAB LAC(LOINC) 0.2-2.0 mmol/L High Lactic Acid 2.6 Lvl Performed By: #### HALEIGH CASTRO, HFP #### [place] [address] HFP Collected: 11/22/2017 Status: F Source: [facility] 5:17 AM [facility] REPOSITORY TYPE CODE TESTS RESULT OUT OF REFERENCE UNITS RANGE LAB PROT(LOINC) 6.0-8.5 G/dL Low Total Protein 5.3 Result Comment: No normals available. Specimen drawm from IV arm. LAB ALB(LOINC) 3.2-4.8 G/dL Low Albumin Level 1.8 LAB GLB(LOINC) 1.5-3.8 G/dL Globulin 3.5 LAB AG(LOINC) 0.9-1.6 ratio A/G Low Ratio 0.5 LAB BILT(LOINC) 0.2-1.2 mg/dL Bili Total 0.4 LAB BILAD(LOINC) 0.0-0.4 mg/dL Bili Direct 0.2 LAB BILI(LOINC) 0.1-10.0 mg/dL Bili Indirect 0.2 Result Comment: Calculated by Rule LAB AP(LOINC) 38-126 U/L High Alk Phos 258 LAB AST(LOINC) 8-34 U/L High AST/SGOT 337 LAB ALT(LOINC) 10-49 U/L High ALT/SGPT 481 Performed By: #### MATTHEW LAC, HFP #### [place] [address] MG Collected: 11/22/2017 Status: F Source: [facility] 5:17 AM [facility] REPOSITORY TYPE CODE TESTS RESULT OUT OF REFERENCE UNITS RANGE LAB MG(LOINC) 1.6-2.4 mg/dL High Magnesium Lvl 2.9 Performed By: #### MG, GFR, BMP, PHOS, CBC, ADIFF, MORPH, ANEU #### [address] [address] .GFR Collected: 11/22/2017 Status: F Source: [facility] 5:17 AM [facility] REPOSITORY TYPE CODE TESTS RESULT OUT OF REFERENCE UNITS RANGE LAB GFRAA(LOINC ml/min/1.73 ) sqm GFR 4 Haitian Result Comment: GFR Population mean for , Non- Americans Ages 20-29 = 116 mL/min/1.73 sq.m. Ages 30-39 = 107 mL/min/1.73 sq.m. Ages 40-49 = 99 mL/min/1.73 sq.m. Ages 50-59 = 93 mL/min/1.73 sq.m. Ages 60-69 = 85 mL/min/1.73 sq.m. Ages 70+ = 75 mL/min/1.73 sq.m. Chronic Kidney Disease: Less than 60 mL/min/1.73 square meters End Stage Renal Disease: Less than 15 mL/min/1.73 square meters LAB GFRNO(LOINC) ml/min/1.73sqm GFR Non- 3 Result Comment: GFR Population mean for , Non- Americans Ages 20-29 = 116 mL/min/1.73 sq.m. Ages 30-39 = 107 mL/min/1.73 sq.m. Ages 40-49 = 99 mL/min/1.73 sq.m. Ages 50-59 = 93 mL/min/1.73 sq.m. Ages 60-69 = 85 mL/min/1.73 sq.m. Ages 70+ = 75 mL/min/1.73 sq.m. Chronic Kidney Disease: Less than 60 mL/min/1.73 square meters End Stage Renal Disease: Less than 15 mL/min/1.73 square meters Performed By: #### MG, GFR, BMP, PHOS, CBC, ADIFF, MORPH, ANEU #### [address] [address] BMP Collected: 11/22/2017 Status: F Source: [facility] 5:17 AM [facility] REPOSITORY TYPE CODE TESTS RESULT OUT OF RANGE REFERENCE UNITS LAB GLU(LOINC) 70-110 mg/dL High Glucose Level 363 LAB NA(LOINC) 136-145 mEq/L Low Sodium Level 132 LAB K(LOINC) 3.5-5.0 mEq/L Potassium Level 4.9 LAB CL(LOINC) 98-110 mEq/L Low Chloride 89 LAB CO2(LOINC) 22-32 mEq/L CO2 22 LAB EBAL(LOINC 4.0-15.0 mEq/L ) High Electrolyte Balance 21.0 LAB BUN(LOINC) 8.0-22.0 mg/dL BUN Abnormal 162.0 Alert LAB CRE(LOINC) 0.50-1.20 mg/dL High Creatinine Lvl (s) 11.90 LAB BC(LOINC) 10.0-22.0 ratio BUN/Creatinine 13.6 Ratio LAB CA(LOINC) 8.4-10.1 mg/dL Calcium Lvl 8.4 Performed By: #### MG, GFR, BMP, PHOS, CBC, ADIFF, MORPH, ANEU #### [place] [address] PHOS Collected: 11/22/2017 Status: F Source: [facility] 5:17 AM [facility] REPOSITORY TYPE CODE TESTS RESULT OUT OF RANGE REFERENCE UNITS LAB PHOS(LOINC 2.5-4.5 mg/dL ) Abnormal Phosphorus 9.2 Alert Performed By: #### MG, GFR, BMP, PHOS, CBC, ADIFF, MORPH, ANEU #### [place] [address] CBC Collected: 11/22/2017 Status: F Source: [facility] 5:17 AM [facility] REPOSITORY TYPE CODE TESTS RESULT OUT OF REFERENCE UNITS RANGE LAB WBC(LOINC) 4.50-10.80 10 3/mcL High WBC 24.70 LAB RBCCT(LOINC 4.10-5.30 10 6/mcL ) Low RBC 2.39 LAB HGB(LOINC) 12.0-16.0 G/dL Low Hgb 7.3 LAB HCT(LOINC) 34.0-46.0 % Low Hct 20.5 LAB MCV(LOINC) 80.0-99.0 fL MCV 85.8 LAB MCH(LOINC) 27.0-33.0 pg MCH 30.4 LAB MCHC(LOINC) 32.0-36.0 G/dL MCHC 35.4 LAB RDW(LOINC) 11.5-15.5 % High RDW 15.7 LAB PLT(LOINC) 150-450 10 3/mcL Platelet 377 LAB MPV(LOINC) 6.6-10.5 fL MPV 8.2 Performed By: #### MG, GFR, BMP, PHOS, CBC, ADIFF, MORPH, ANEU #### [place] [address] .AUTO DIFF Collected: 11/22/2017 Status: F Source: [facility] 5:17 AM [facility] REPOSITORY TYPE CODE TESTS RESULT OUT OF REFERENCE UNITS RANGE LAB CAITLYN(LOINC) 50.0-75.0 % High Neutrophil % 92.2 LAB LYM(LOINC) 20.0-40.0 % Low Lymphocyte % 4.3 LAB MON(LOINC) 2.0-13.0 % Monocyte % 3.4 LAB EO(LOINC) 0.0-6.0 % Eosinophil % 0.0 LAB BAS(LOINC) 0.0-2.5 % Basophil % 0.1 LAB ABLYM(LOIN 0.90-4.32 10 3/mcL C) Lymphocyte, 1.10 Absolute LAB MAHAD(LOINC 0.09-1.40 10 3/mcL ) Monocyte, 0.80 Absolute LAB AEOS(LOINC 0.00-0.65 10 3/mcL ) Eosinophil, 0.00 Absolute LAB ABAS(LOINC 0.00-0.27 10 3/mcL ) Basophil, 0.00 Absolute Performed By: #### MG, GFR, BMP, PHOS, CBC, ADIFF, MORPH, ANEU #### [place] [address] .MORPH Collected: 11/22/2017 Status: F Source: [facility] 5:17 AM [facility] REPOSITORY TYPE CODE TESTS RESULT OUT OF REFERENCE UNITS RANGE LAB PLTE(LOINC ) Platelet Estimate Normal LAB ANIS(LOINC ) Anisocytosis Slight LAB POLC(LOINC ) Polychrom Slight Performed By: #### MG, GFR, BMP, PHOS, CBC, ADIFF, MORPH, ANEU #### [place] [address] .NEUABS Collected: 11/22/2017 Status: F Source: [facility] 5:17 AM [facility] REPOSITORY TYPE CODE TESTS RESULT OUT OF REFERENCE UNITS RANGE LAB ANEU(LOINC) 2.25-8.10 10 3/mcL High Neutrophil, 22.80 Absolute Performed By: #### MG, GFR, BMP, PHOS, CBC, ADIFF, MORPH, ANEU #### [place] [id number] [place] [address] HEPAC Collected: 11/22/2017 Status: F Source: [facility] 5:01 AM [facility] REPOSITORY TYPE CODE TESTS RESULT OUT OF REFERENCE UNITS RANGE LAB HBSAG(LOINC Negative ) Hep B Negative Surf Ag LAB HBCM(LOINC) Negative Hep B Negative Core IgM Ab Result Comment: No serological evidence of ACUTE Hepatitis B infection. LAB HCV(LOINC) Negative Negative Hep C Ab LAB HCV1(LOINC) No serological evidence of Hep C Ab Hepatitis C Int infection, although levels of anti-HCV may be undetectable in early infection. LAB HAVM(LOINC) Negative Negative Hep A IgM Ab LAB HAVM1(LOINC) No serological evidence of a Hep A IgM current Hepatitis A Ab Int infection. Performed By: #### HEPAC #### [place] [address] XR CHEST 1 VIEW Observed: 11/22/2017 Status: F Source: [facility] 4:51 AM [facility] REPOSITORY ORIGINAL Clinical history: Short of breath. COMPARISON: Chest x-ray on 11/21/2017. Portable AP radiograph of the chest was obtained at 5:30 AM. The endotracheal tube and the enteric tube are in satisfactory position. LEFT basilar lung consolidation in the retrocardiac region, and LEFT pleural fluid show no significant change. No new abnormality has developed. Interpreted By: Saulo Almonte MD Preliminary Report By: Saulo Almonte MD Electronically Signed By: Saulo Almonte MD Dictated Date: 11/22/2017 6:41:32 AM Prelim Date: 11/22/2017 6:41:32 AM Sign Date: 11/22/2017 6:43:32 AM Collected: 11/21/2017 Status: F Source: [facility] 11:58 PM [facility] REPOSITORY TYPE CODE TESTS RESULT OUT OF RANGE REFERENCE UNITS LAB HGB(LOINC) 12.0-16.0 G/dL Low Hgb 7.9 LAB HCT(LOINC) 34.0-46.0 % Low Hct 23.4 Performed By: #### HH #### [address] [address] .GFR Collected: 11/21/2017 Status: F Source: [facility] 11:58 PM [facility] REPOSITORY TYPE CODE TESTS RESULT OUT OF REFERENCE UNITS RANGE LAB GFRAA(LOINC ml/min/1.73 ) sqm GFR 4 Haitian Result Comment: GFR Population mean for , Non- Americans Ages 20-29 = 116 mL/min/1.73 sq.m. Ages 30-39 = 107 mL/min/1.73 sq.m. Ages 40-49 = 99 mL/min/1.73 sq.m. Ages 50-59 = 93 mL/min/1.73 sq.m. Ages 60-69 = 85 mL/min/1.73 sq.m. Ages 70+ = 75 mL/min/1.73 sq.m. Chronic Kidney Disease: Less than 60 mL/min/1.73 square meters End Stage Renal Disease: Less than 15 mL/min/1.73 square meters LAB GFRNO(LOINC) ml/min/1.73sqm GFR Non- 3 Result Comment: GFR Population mean for , Non- Americans Ages 20-29 = 116 mL/min/1.73 sq.m. Ages 30-39 = 107 mL/min/1.73 sq.m. Ages 40-49 = 99 mL/min/1.73 sq.m. Ages 50-59 = 93 mL/min/1.73 sq.m. Ages 60-69 = 85 mL/min/1.73 sq.m. Ages 70+ = 75 mL/min/1.73 sq.m. Chronic Kidney Disease: Less than 60 mL/min/1.73 square meters End Stage Renal Disease: Less than 15 mL/min/1.73 square meters Performed By: #### GFR, BMP #### [address] [address] BMP Collected: 11/21/2017 Status: F Source: [facility] 11:58 PM [facility] REPOSITORY TYPE CODE TESTS RESULT OUT OF REFERENCE UNITS RANGE LAB GLU(LOINC) 70-110 mg/dL High Glucose Level 364 LAB NA(LOINC) 136-145 mEq/L Low Sodium Level 130 LAB K(LOINC) 3.5-5.0 mEq/L High Potassium Level 6.0 Result Comment: Specimen slightly hemolyzed. LAB CL(LOINC) 98-110 mEq/L Low Chloride 88 LAB CO2(LOINC) 22-32 mEq/L Low CO2 21 LAB EBAL(LOINC) 4.0-15.0 mEq/L High Electrolyte Balance 21.0 LAB BUN(LOINC) 8.0-22.0 mg/dL Abnormal BUN Alert 162.0 LAB CRE(LOINC) 0.50-1.20 mg/dL High Creatinine Lvl (s) 11.80 LAB BC(LOINC) 10.0-22.0 ratio BUN/Creatinine Ratio 13.7 LAB CA(LOINC) 8.4-10.1 mg/dL Low Calcium Lvl 7.9 Performed By: #### GFR, BMP #### [place] [address] HH Collected: 11/21/2017 Status: F Source: [facility] 10:03 PM [facility] REPOSITORY TYPE CODE TESTS RESULT OUT OF RANGE REFERENCE UNITS LAB HGB(LOINC) 12.0-16.0 G/dL Low Hgb 7.9 LAB HCT(LOINC) 34.0-46.0 % Low Hct 23.1 Performed By: #### HH #### [place] [address] BG Collected: 11/21/2017 Status: F Source: [facility] 9:34 PM [facility] REPOSITORY TYPE CODE TESTS RESULT OUT OF REFERENCE UNITS RANGE LAB PH(LOINC) 7.380-7.460 pH 7.382 LAB PCO2(LOINC 32.0-46.0 mmHg ) pCO2 36.2 LAB PO2(LOINC) 74.0-108.0 mmHg pO2 90.1 LAB HCO3(LOINC 21.0-29.0 mmol/L ) HCO3 21.0 LAB TCO2(LOINC 22.0-30.0 mmol/L ) CO2 Totl 22.1 LAB BE(LOINC) mmol/L Base Excess -3.6 LAB O2SAT(LOIN 92.0-96.0 % C) O2 Sat High 96.9 LAB BPRES(LOIN mmHg C) Barometric 734 Pressure Performed By: #### BG #### [place] [address] RBC (PRODUCT) Collected: 11/21/2017 Status: F Source: [facility] 4:38 PM [facility] REPOSITORY Order Comment: transfuse 1 unit TYPE CODE TESTS RESULT OUT OF REFERENCE UNITS RANGE LAB RBCPR(LOINC ) RBC Product RBC Ready Ready for Pickup Performed By: #### RBCP #### [address] [address] BG Collected: 11/21/2017 Status: F Source: [facility] 4:30 PM [facility] REPOSITORY TYPE CODE TESTS RESULT OUT OF REFERENCE UNITS RANGE LAB PH(LOINC) 7.380-7.460 Low pH 7.303 LAB PCO2(LOINC 32.0-46.0 mmHg ) pCO2 44.3 LAB PO2(LOINC) 74.0-108.0 mmHg pO2 101.7 LAB HCO3(LOINC 21.0-29.0 mmol/L ) HCO3 21.5 LAB TCO2(LOINC 22.0-30.0 mmol/L ) CO2 Totl 22.8 LAB BE(LOINC) mmol/L Base Excess -4.6 LAB O2SAT(LOIN 92.0-96.0 % C) O2 Sat High 97.4 LAB BPRES(LOIN mmHg C) Barometric 732 Pressure Performed By: #### BG #### [place] [address] Observed: 11/21/2017 Status: F Source: [facility] 3:44 PM [facility] REPOSITORY . MICRO - Microbiology PROCEDURE: Blood Culture (bacterial) [*1] SOURCE: Blood BODY SITE: COLLECTED DATE/TIME: 11/21/2017 15:44 EDT RECEIVED DATE/TIME: 11/21/2017 17:03 EDT START DATE/TIME: 11/21/2017 17:03 EDT FREE TEXT SOURCE: FINAL REPORTS Final Report [] Verified Date/Time/Personnel: 11/26/2017 18:00 EDT Blood Culture: No Growth at 5 days. PRELIMINARY REPORTS Preliminary Report [] Verified Date/Time/Personnel: 11/21/2017 17:59 EDT Culture has been received in lab and is no growth to date. Routine cultures are held for 5 days. Performing Locations *1: This test was performed at: [address], [address] , [facility] Performed By: #### CBL #### [place] [address] CAION Collected: 11/21/2017 Status: F Source: [facility] 3:43 PM [facility] REPOSITORY TYPE CODE TESTS RESULT OUT OF REFERENCE UNITS RANGE LAB CAION(LOINC 1.12-1.32 mmol/L ) Low Calcium 0.96 Ionized Performed By: #### CAION, LAC, FIB, APTT, PRO, MG, GFR, CBC, TROPI, CMP, PHOS, DIFF, MORPH #### [place] [address] LAC Collected: 11/21/2017 Status: F Source: [facility] 3:43 [facility] REPOSITORY TYPE CODE TESTS RESULT OUT OF REFERENCE UNITS RANGE LAB LAC(LOINC) 0.2-2.0 mmol/L High Lactic Acid 3.1 Lvl Performed By: #### CAION, LAC, FIB, APTT, PRO, MG, GFR, CBC, TROPI, CMP, PHOS, DIFF, MORPH #### [place] [address] FIB Collected: 11/21/2017 Status: F Source: [facility] 3:43 [facility] REPOSITORY TYPE CODE TESTS RESULT OUT OF REFERENCE UNITS RANGE LAB FIB(LOINC) 250-550 mg/dL High Fibrinogen >700 Performed By: #### CAION, LAC, FIB, APTT, PRO, MG, GFR, CBC, TROPI, CMP, PHOS, DIFF, MORPH #### [place] [address] APTT Collected: 11/21/2017 Status: F Source: [facility] 3:43 [facility] REPOSITORY TYPE CODE TESTS RESULT OUT OF REFERENCE UNITS RANGE LAB PDOSE(LOIN C) Heparin dose None (APTT) LAB APTT0(LOIN 25.0-35.0 seconds C) APTT 32.4 Result Comment: For Heparin anticoagulation therapy, the recommended therapeutic range is: 54-77 seconds (APTT Correlation with Anti-Xa therapeutic range of 0.3-0.7 units/ml). PLEASE REFERENCE THE PHARMACY PROTOCOL FOR DOSING. Performed By: #### CAION, LAC, FIB, APTT, PRO, MG, GFR, CBC, TROPI, CMP, PHOS, DIFF, MORPH #### [address] [address] PRO Collected: 11/21/2017 Status: F Source: [facility] 3:43 PM [facility] REPOSITORY TYPE CODE TESTS RESULT OUT OF REFERENCE UNITS RANGE LAB PT(LOINC) 9.0-14.5 seconds High Protime 16.2 Result Comment: Effective 09/01/07, Protime results may be affected by some antibiotics (i.e. Ciprofloxacin, Azithromycin, Bactrim) which may potentiate the action of oral anticoagulants, with further increases in Protime/INR. LAB INR(LOINC) ratio PT International Ratio 1.4 Result Comment: The [employer] (CHEST, 1992, [id number]) recommended therapeutic range for oral anticoagulant therapy is: LOW RISK: Prophylaxis of venous thrombosis INR: 2.0-3.0 Treatment of pulmonary embolism 2.0-3.0 Prevention of systemic embolism 2.0-3.0 HIGH RISK: Mechanical prosthetic valves 2.5-3.5 Performed By: #### CAION, LAC, FIB, APTT, PRO, MG, GFR, CBC, TROPI, CMP, PHOS, DIFF, MORPH #### [address] [address] MG Collected: 11/21/2017 Status: F Source: [facility] 3:43 [facility] REPOSITORY TYPE CODE TESTS RESULT OUT OF REFERENCE UNITS RANGE LAB MG(LOINC) 1.6-2.4 mg/dL High Magnesium Lvl 3.0 Performed By: #### CAION, LAC, FIB, APTT, PRO, MG, GFR, CBC, TROPI, CMP, PHOS, DIFF, MORPH #### [address] [address] .GFR Collected: 11/21/2017 Status: F Source: [facility] 3:43 PM [facility] REPOSITORY TYPE CODE TESTS RESULT OUT OF REFERENCE UNITS RANGE LAB GFRAA(LOINC ml/min/1.73 ) sqm GFR 4 Haitian Result Comment: GFR Population mean for , Non- Americans Ages 20-29 = 116 mL/min/1.73 sq.m. Ages 30-39 = 107 mL/min/1.73 sq.m. Ages 40-49 = 99 mL/min/1.73 sq.m. Ages 50-59 = 93 mL/min/1.73 sq.m. Ages 60-69 = 85 mL/min/1.73 sq.m. Ages 70+ = 75 mL/min/1.73 sq.m. Chronic Kidney Disease: Less than 60 mL/min/1.73 square meters End Stage Renal Disease: Less than 15 mL/min/1.73 square meters LAB GFRNO(LOINC) ml/min/1.73sqm GFR Non- 3 Result Comment: GFR Population mean for , Non- Americans Ages 20-29 = 116 mL/min/1.73 sq.m. Ages 30-39 = 107 mL/min/1.73 sq.m. Ages 40-49 = 99 mL/min/1.73 sq.m. Ages 50-59 = 93 mL/min/1.73 sq.m. Ages 60-69 = 85 mL/min/1.73 sq.m. Ages 70+ = 75 mL/min/1.73 sq.m. Chronic Kidney Disease: Less than 60 mL/min/1.73 square meters End Stage Renal Disease: Less than 15 mL/min/1.73 square meters Performed By: #### CAION, LAC, FIB, APTT, PRO, MG, GFR, CBC, TROPI, CMP, PHOS, DIFF, MORPH #### [address] [address] CBC Collected: 11/21/2017 Status: F Source: [facility] 3:43 [facility] REPOSITORY TYPE CODE TESTS RESULT OUT OF RANGE REFERENCE UNITS LAB WBC(LOINC) 4.50-10.80 10 3/mcL High WBC 27.60 LAB RBCCT(LOIN 4.10-5.30 10 6/mcL C) Low RBC 2.30 LAB HGB(LOINC) 12.0-16.0 G/dL Abnormal Alert Hgb 6.9 LAB HCT(LOINC) 34.0-46.0 % Low Hct 20.0 LAB MCV(LOINC) 80.0-99.0 fL MCV 87.0 LAB MCH(LOINC) 27.0-33.0 pg MCH 29.9 LAB MCHC(LOINC 32.0-36.0 G/dL ) MCHC 34.4 LAB RDW(LOINC) 11.5-15.5 % RDW 15.1 LAB PLT(LOINC) 150-450 10 3/mcL Platelet 426 LAB MPV(LOINC) 6.6-10.5 fL MPV 8.4 Performed By: #### CAION, LAC, FIB, APTT, PRO, MG, GFR, CBC, TROPI, CMP, PHOS, DIFF, MORPH #### [address] [id number] TROPI Collected: 11/21/2017 Status: F Source: [facility] 3:43 [facility] EM[facility]ENC[facility] REPOSITORY TYPE CODE TESTS RESULT OUT OF REFERENCE UNITS RANGE LAB TROPI(LOINC 0.000-0.040 ng/mL ) Troponin I <0.015 Result Comment: Troponin I reference ranges (10/25/13): 0.00-0.040 ng/mL Negative and non-diagnostic. >0.040 ng/mL Consistent with cardiac damage, increased clinical risk and possibility of myocardial infarction. Serial measurements, a rise & fall in test results, clinical history, appropriate symptoms and/or ECG changes may help assess possibility of ID. *Other non-acute coronary syndrome conditions such as CHF, myocarditis, pulmonary emboli, sepsis and cardiac surgery could result in myocardial damage and increased troponin levels. Performed By: #### MATTHEW, LAC, FIB, APTT, PRO, MG, GFR, CBC, TROPI, CMP, PHOS, DIFF, MORPH #### [address] [id number] CMP Collected: 11/21/2017 Status: F Source: [facility] 3:43 PM [facility] REPOSITORY TYPE CODE TESTS RESULT OUT OF RANGE REFERENCE UNITS LAB GLU(LOINC) 70-110 mg/dL Glucose Abnormal Level 447 Alert LAB NA(LOINC) 136-145 mEq/L Low Sodium Level 129 LAB K(LOINC) 3.5-5.0 mEq/L Potassium Abnormal Level 6.4 Alert LAB CL(LOINC) 98-110 mEq/L Low Chloride 88 LAB CO2(LOINC) 22-32 mEq/L Low CO2 19 LAB EBAL(LOINC 4.0-15.0 mEq/L ) High Electrolyte Balance 22.0 LAB BUN(LOINC) 8.0-22.0 mg/dL BUN Abnormal 148.0 Alert LAB CRE(LOINC) 0.50-1.20 mg/dL High Creatinine Lvl (s) 12.00 LAB BC(LOINC) 10.0-22.0 ratio BUN/Creatinine 12.3 Ratio LAB CA(LOINC) 8.4-10.1 mg/dL Low Calcium Lvl 8.2 LAB PROT(LOINC 6.0-8.5 G/dL ) Total Protein 6.3 LAB ALB(LOINC) 3.2-4.8 G/dL Low Albumin Level 1.8 LAB GLB(LOINC) 1.5-3.8 G/dL High Globulin 4.5 LAB AG(LOINC) 0.9-1.6 ratio Low A/G Ratio 0.4 LAB BILT(LOINC 0.2-1.2 mg/dL ) Bili Total 0.8 LAB AP(LOINC) 38-126 U/L High Alk Phos 311 LAB AST(LOINC) 8-34 U/L High AST/SGOT 527 LAB ALT(LOINC) 10-49 U/L High ALT/SGPT 472 Performed By: #### CAION, LAC, FIB, APTT, PRO, MG, GFR, CBC, TROPI, CMP, PHOS, DIFF, MORPH #### [place] [id number] PHOS Collected: 11/21/2017 Status: F Source: [facility] 3:43 [facility] EMERGENCY DEPARTMENT REPOSITORY TYPE CODE TESTS RESULT OUT OF RANGE REFERENCE UNITS LAB PHOS(LOINC 2.5-4.5 mg/dL ) Abnormal Phosphorus 9.7 Alert Performed By: #### CAION, LAC, FIB, APTT, PRO, MG, GFR, CBC, TROPI, CMP, PHOS, DIFF, MORPH #### [place] [id number] .MANUAL DIFF Collected: 11/21/2017 Status: F Source: [facility] 3:43 [facility] EMERGENCY DEPARTMENT REPOSITORY TYPE CODE TESTS RESULT OUT OF REFERENCE UNITS RANGE LAB LIMIT(LOIN C) Cells Counted 100 LAB NEUM(LOINC 50.0-75.0 % ) High Neutrophil %, 87.0 Manual LAB LYMM(LOINC 20.0-40.0 % ) Low Lymphocyte %, 8.0 Manual LAB MONM(LOINC 2.0-13.0 % ) Monocyte %, Manual 3.0 LAB EOM(LOINC) 0.0-6.0 % Eosinophil %, 0.0 Manual LAB BASM(LOINC 0.0-2.5 % ) Basophil %, Manual 1.0 LAB BAND(LOINC 0.0-5.0 % ) Bands 1.0 LAB ANEUM(LOIN 2.25-8.10 10 3/mcL C) High Neutrophil, Abs 24.29 Manual LAB ABLYMM(LIZETT 0.90-4.32 10 3/mcL NC) Lymphocyte, Abs 2.21 Manual LAB AMONM(LOIN 0.09-1.40 10 3/mcL C) Monocyte, Abs 0.83 Manual LAB AEOSM(LOIN 0.00-0.65 10 3/mcL C) Eosinophil, Abs 0.00 Manual LAB ABASM(LOIN 0.00-0.27 10 3/mcL C) High Basophil, Abs 0.28 Manual Performed By: #### CAION, LAC, FIB, APTT, PRO, MG, GFR, CBC, TROPI, CMP, PHOS, DIFF, MORPH #### [place] [id number] .MORPH Collected: 11/21/2017 Status: F Source: [facility] 3:43 PM [facility] REPOSITORY TYPE CODE TESTS RESULT OUT OF REFERENCE UNITS RANGE LAB PLTE(LOINC ) Platelet Estimate Normal LAB ANIS(LOINC ) Anisocytosis Slight LAB POLC(LOINC ) Polychrom Slight Performed By: #### CAION, LAC, FIB, APTT, PRO, MG, GFR, CBC, TROPI, CMP, PHOS, DIFF, MORPH #### [place] [address] TABO Collected: 11/21/2017 Status: F Source: [facility] 3:43 PM [facility] REPOSITORY TYPE CODE TESTS RESULT OUT OF RANGE REFERENCE UNITS LAB ABORH(LOINC ) Unknown ABO/Rh B NEG Interp Performed By: #### ABORH, ANTIS #### [place] [address] TABS Collected: 11/21/2017 Status: F Source: [facility] 3:43 PM [facility] REPOSITORY TYPE CODE TESTS RESULT OUT OF REFERENCE UNITS RANGE LAB ANST(LOINC ) Antibody Negative ABSC Screen Tango Performed By: #### ABORH, ANTIS #### [place] [id number] Observed: 11/21/2017 Status: F Source: [facility] 3:43 PM [facility] REPOSITORY . MICRO - Microbiology PROCEDURE: Blood Culture (bacterial) [*1] SOURCE: Blood BODY SITE: COLLECTED DATE/TIME: 11/21/2017 15:43 EDT RECEIVED DATE/TIME: 11/21/2017 17:03 EDT START DATE/TIME: 11/21/2017 17:03 EDT FREE TEXT SOURCE: FINAL REPORTS Final Report [] Verified Date/Time/Personnel: 11/26/2017 18:00 EDT Blood Culture: No Growth at 5 days. PRELIMINARY REPORTS Preliminary Report [] Verified Date/Time/Personnel: 11/21/2017 17:59 EDT Culture has been received in lab and is no growth to date. Routine cultures are held for 5 days. Performing Locations *1: This test was performed at: [facility], [address] [place] [address], [address] [place] [address] Performed By: #### CBL #### [place] [id number] Observed: 11/21/2017 Status: F Source: [facility] 3:26 PM [facility] REPOSITORY . MICRO - Microbiology PROCEDURE: Culture Respiratory with Gram Stain [^1 *1] SOURCE: Tracheal Aspirate BODY SITE: COLLECTED DATE/TIME: 11/21/2017 15:26 EDT RECEIVED DATE/TIME: 11/21/2017 15:45 EDT START DATE/TIME: 11/21/2017 15:45 EDT FREE TEXT SOURCE: FINAL REPORTS Final Report [] Verified Date/Time/Personnel: 11/23/2017 09:00 EDT Normal respiratory sai absent. Moderate Pseudomonas aeruginosa PRELIMINARY REPORTS Preliminary Report [] Verified Date/Time/Personnel: 11/22/2017 11:38 EDT Normal respiratory sai absent. Moderate Non Fermentering Gram Negative Rods Final identification and NATAN to follow. STAINS GS [] Verified Date/Time/Personnel: 11/21/2017 17:21 EDT 2+ Polymorphonuclear cells Rare Gram Negative Rods SUSCEPTIBILITY RESULTS Pseudomonas aeruginosa Antibiotic NATAN Dilutn NATAN Interp Cefepime <=4 Susceptible Ceftazidime <=1 Susceptible Gentamicin <=4 Susceptible Levofloxacin <=2 Susceptible Meropenem <=1 Susceptible Piperacillin/ <=16 Susceptible Tazobactam Tobramycin <=4 Susceptible Interpretive Data ^1: Culture Respiratory with Gram Stain Requests for Mycoplasma, Legionella, Fungi, Mycobacteria, Chlamydia, and Viruses require ordering of those individual tests. Performing Locations *1: This test was performed at: [address] Performed By: #### CRESP #### [place] [id number] Observed: 11/21/2017 Status: F Source: [facility] 3:26 PM [facility] REPOSITORY . MICRO - Microbiology PROCEDURE: MRSA PCR [*1] SOURCE: Nares BODY SITE: COLLECTED DATE/TIME: 11/21/2017 15:26 EDT RECEIVED DATE/TIME: 11/21/2017 15:45 EDT START DATE/TIME: 11/21/2017 15:46 EDT FREE TEXT SOURCE: FINAL REPORTS Final Report [] Verified Date/Time/Personnel: 11/21/2017 23:00 EDT MRSA NEGATIVE. MRSA DNA not detected by Real-Time Polymerase Chain Reaction (PCR). A negative result may be due to intermittent colonization. Colonization may vary depending on patient treatment, patient status or exposure to high risk environments. As with all PCR based in vitro tests, extremely low levels of target below the limit of detection of the assay may be detected, but results may not be reproducible. Performing Locations *1: This test was performed at: [address] Performed By: #### MRPCR #### [place] [id number] Observed: 11/21/2017 Status: F Source: [facility] 3:26 PM [facility] REPOSITORY . MICRO - Microbiology PROCEDURE: Urine Culture [*1] SOURCE: Urine, Clean Catch BODY SITE: COLLECTED DATE/TIME: 11/21/2017 15:26 EDT RECEIVED DATE/TIME: 11/21/2017 15:45 EDT START DATE/TIME: 11/21/2017 15:46 EDT FREE TEXT SOURCE: FINAL REPORTS Final Report [] Verified Date/Time/Personnel: 11/23/2017 07:23 EDT No growth at 48 hours. PRELIMINARY REPORTS Preliminary Report [] Verified Date/Time/Personnel: 11/22/2017 09:19 EDT No growth to date Performing Locations *1: This test was performed at: [facility], [address] [place] [address], [address] [place] [address] Performed By: #### CUR #### [place] [address] BG Collected: 11/21/2017 Status: F Source: [facility] 3:19 PM [facility] REPOSITORY TYPE CODE TESTS RESULT OUT OF REFERENCE UNITS RANGE LAB PH(LOINC) 7.380-7.460 Low pH 7.292 LAB PCO2(LOINC 32.0-46.0 mmHg ) pCO2 45.0 LAB PO2(LOINC) 74.0-108.0 mmHg Low pO2 44.4 LAB HCO3(LOINC 21.0-29.0 mmol/L ) HCO3 21.2 LAB TCO2(LOINC 22.0-30.0 mmol/L ) CO2 Totl 22.6 LAB BE(LOINC) mmol/L Base Excess -5.3 LAB O2SAT(LOIN 92.0-96.0 % C) Low O2 Sat 75.1 LAB BPRES(LOIN mmHg C) Barometric 736 Pressure Performed By: #### BG #### [place] [id number] XR CHEST 1 VIEW Observed: 11/21/2017 Status: F Source: [facility] 2:42 PM [facility] REPOSITORY ORIGINAL XR CHEST 1 VIEW AP portable supine CLINICAL INDICATION: s/p OG tube COMPARISON: 05/12/2017 FINDINGS: The image was obtained for demonstration of OG tube position and includes the upper abdomen and lower part of the chest. The mid and upper lungs are excluded from the field of view. An OG tube is present. The tube extends into the region of the gastric body and the tip is located laterally in the fundus of the stomach. IMPRESSION: The tip of the OG tube is in the stomach. Interpreted By: Sesar Murphy MD Preliminary Report By: Sesar Murphy MD Electronically Signed By: Sesar Murphy MD Dictated Date: 11/21/2017 3:16:29 PM Prelim Date: 11/21/2017 3:16:29 PM Sign Date: 11/21/2017 3:19:54 PM XR CHEST 1 VIEW Observed: 11/21/2017 Status: F Source: [facility] 2:33 PM [facility] REPOSITORY ORIGINAL XR CHEST 1 VIEW AP portable upright CLINICAL INDICATION: Chest Pain COMPARISON: 05/12/2017 FINDINGS: An endotracheal tube is in place with the tip in the mid trachea about 3 cm above the wiliam. An enteric tube descends into the stomach and the tip is located in the gastric fundus. The heart is normal in size. Hilar and mediastinal contours are normal. Blunting of the LEFT lateral costophrenic angle is present suggesting a LEFT pleural effusion. There is patchy airspace opacity at the LEFT lung base which could be due to scarring, atelectasis or pneumonia. There is no vascular congestion or pleural effusion. Moderate thoracolumbar scoliosis is present and there are degenerative changes in the spine. RIGHT upper quadrant abdominal surgical clips are probably related to prior cholecystectomy. IMPRESSION: Endotracheal tube and enteric tube in satisfactory position. Suspect LEFT pleural effusion. LEFT basilar parenchymal opacities could be due to atelectasis, scarring or pneumonia. Interpreted By: Sesar Murphy MD Preliminary Report By: Sesar Murphy MD Electronically Signed By: Sesar Murphy MD Dictated Date: 11/21/2017 3:19:19 PM Prelim Date: 11/21/2017 3:19:29 PM Sign Date: 11/21/2017 3:22:38 PM RBC (PRODUCT) Collected: 11/21/2017 Status: F Source: [facility] 2:28 PM [facility] REPOSITORY TYPE CODE TESTS RESULT OUT OF REFERENCE UNITS RANGE LAB RBCPR(LOINC ) RBC Product RBC Ready Ready for Pickup Performed By: #### RBCP #### [facility] [address] [place] [id number] TROPONIN Collected: 11/21/2017 Status: F Source: [facility] 11:[address] [facility] REPOSITORY TYPE CODE TESTS RESULT OUT OF REFERENCE UNITS RANGE LAB TROPONIN 0.00 - 0.05 ng/ml I(LOINC) TROPONIN I 0.02 Result Comment: Elevated troponin (above the 99th percentile) usually indicates myocardial ischemia. Results must be interpreted within the clinical setting. 1.Non-ischemic pathology can also cause elevated troponin levels (e.g., acute pulmonary embolism, myocarditis, pericarditis, heart failure, intracranial injury, rhabdomyolisis, sepsis, shock and renal insufficiency). 2.Approximately 1% of healthy adults have elevated troponin levels. 3.Analytical false positive results rarely occur(due to multiple interferences such as heterophile antibodies). Performed By: #### [id number] #### [place] [address] POTASSIUM Collected: 11/21/2017 Status: F Source: [facility] 11:[address] [facility] REPOSITORY TYPE CODE TESTS RESULT OUT OF REFERENCE UNITS RANGE LAB POTASSIUM( 3.5 - 5.1 mmol/L LOINC) High Alert POTASSIUM 6.6 Result Comment: { CALLED TO TERI AT 1217/ { READ BACK BY TERI RA 1217 Performed By: #### [id number] #### [place] [id number] ARTERIAL BLOOD GAS Collected: 11/21/2017 Status: F Source: [facility] ANALYSIS 11:[address] [facility] REPOSITORY TYPE CODE TESTS RESULT OUT OF REFERENCE UNITS RANGE LAB ARTERIAL BLOOD GAS ANALYSIS(LOINC ) ARTERIAL BLOOD GAS ANALYSIS Result Comment: ARTERIAL BLOOD GAS LAB pH(LOINC) 7.35 - 7.45 Low 7.20 pH LAB PCO2(LOINC) 35 - 45 mm Hg 36 PCO2 LAB PO2(LOINC) 80 - 105 mm Hg High 148 PO2 LAB HCO3(LOINC) 20 - 24 mmol/L Low 14 HCO3 LAB BE(LOINC) -2 - 3 Low -14 BE LAB SaO2(LOINC) 95 - 98 High 99 SaO2 Result Comment: TIME RESULT CALLED _1120 11/21/17.1119.ZSK. { FIO2/LPM 50% LAB MODALITY(LOINC) MODALITY VENT LAB SPO2(LOINC) SPO2 99 LAB TOTAL RR(LOINC) TOTAL RR 14 LAB PULSE(LOINC) PULSE 81 LAB SAMPLE SITE(LOINC) SAMPLE SITE LT BRACH LAB VENT(LOINC) VENT SEE BELOW Result Comment: { MODE SIMV LAB SET RR(LOINC) SET RR 14 LAB TIDAL VOL(LOINC) TIDAL VOL 550 LAB PIP(LOINC) PIP 14 LAB PEEP/CPAP(LOINC) PEEP/CPAP 5 Result Comment: { PRESS SUP 5 LAB ALLENS TEST(LOINC) ALLENS TEST NA Result Comment: { TIME CALLED 1120 Performed By: #### [id number] #### [facility],[address] [place] [address] CBC Collected: 11/21/2017 Status: F Source: [facility] 11:[address] [facility] REPOSITORY TYPE CODE TESTS RESULT OUT OF RANGE REFERENCE UNITS LAB CBC(LOINC) CBC Result Comment: CBC-COMPLETE BLOOD COUNT LAB WBC(LOINC) 4.5 - 10.8 x 10EE3/UL WBC High 22.0 LAB RBC(LOINC) 4.10 - x 10EE6/UL Low 5.30 RBC 1.95 LAB HEMOGLOBIN(LOINC 12.0 - g/dl ) Low 16.0 Alert HEMOGLOBIN 5.7 Result Comment: { CALLED TO LAMBERTO/YUNIEL 1124 { READ BACK BY H&H RA-1124 { TEST REPEATED LAB HEMATOCRIT(LOINC) 34.0 - % Low 46.0 Alert HEMATOCRIT 17.3 LAB MCV(LOINC) 80 - 99 fl MCV 89 LAB MCH(LOINC) 27 - 33 pg MCH 29 LAB MCHC(LOINC) 32 - 36 X10 3 MCHC 33 LAB RDW/CV(LOINC) 12.0 - % 15.6 RDW/CV 15.3 LAB PLATELET(LOINC) 150 - 450 x10EE3/ UL PLATELET 409 LAB MPV(LOINC) 6.6 - fl 10.5 MPV 8.7 Result Comment: AUTOMATED DIFFERENTIAL LAB NEUT %(LOINC) 46.0 - 76.0 % NEUT % High 91.1 LAB LYMPH %(LOINC) 20.0 - 45.0 % Low LYMPH % 5.1 LAB MONOS %(LOINC) 0.0 - 10.0 % MONOS % 3.7 LAB EO %(LOINC) 0.0 - 7.0 % EO % 0.0 LAB BASO %(LOINC) 0.0 - 2.0 % BASO % 0.1 LAB Lymph #(LOINC) 0.80 - 2.80 x10EE3/U L Lymph # 1.10 LAB Neut #(LOINC) 1.50 - 7.10 x10EE3/U L Neut # High 20.00 LAB Iron #(LOINC) 0.20 - 1.00 x10EE3/U L Iron # 0.80 LAB EO #(LOINC) 0.00 - 0.50 x10EE3/U L EO # 0.00 LAB Baso #(LOINC) 0.00 - 0.10 x10EE3/U L Baso # 0.00 LAB MANUAL DIFF(LOINC) MANUAL DIFF N/A LAB MORPHOLOGY(INC ) MORPHOLOGY N/A Result Comment: {CD] Performed By: #### [id number] #### [place] [address] OCCULT BLOOD GASTRIC Collected: 11/21/2017 Status: F Source: [facility] 10:54 [facility] REPOSITORY TYPE CODE TESTS RESULT OUT OF REFERENCE UNITS RANGE LAB OCCULT BLOOD GASTRIC(LOIN C) OCCULT BLOOD GASTRIC Result Comment: { OCCULT BLOOD POSITIVE (NEGATIVE ) { SPECIMEN GASTRIC ASPIRATE LAB PH(INC) PH 3 Performed By: #### [id number] #### [place] [address] URINALYSIS Collected: 11/21/2017 Status: F Source: [facility] 10:54 [facility] REPOSITORY TYPE CODE TESTS RESULT OUT OF REFERENCE UNITS RANGE LAB URINALYSIS (LOINC) URINALYSIS Result Comment: URINALYSIS LAB Specimen Type(LOINC) Specimen Type UNSPECIFIED LAB Color(LOINC) NORMAL: YELLOW Color yellow LAB Clarity(LOINC) NORMAL: CLEAR Clarity CLOUDY Abnormal LAB ph(LOINC) NORMAL: 5.0-8.0 ph 5 LAB Protein(LOINC) NORMAL: NEGATIVE Protein 500 Abnormal LAB Glucose(LOINC) NORMAL: NORMAL Glucose 250 Abnormal LAB Ketone(LOINC) NORMAL: NEGATIVE Ketone 5 Abnormal LAB Bilirubin(LOINC) NORMAL: NEGATIVE NEG Bilirubin LAB Blood(LOINC) NORMAL: NEGATIVE Blood 150 Abnormal LAB Urobilinog(LOINC NORMAL: ) NORMAL NORM Urobilinog LAB Sp NORMAL: [place](LOINC) 1.010-1.030 Sp 1.015 [place] LAB Nitrite(LOINC) NORMAL: NEGATIVE Nitrite NEG LAB Leukocytes(LOINC NORMAL: ) NEGATIVE 100 Abnormal Leukocytes LAB Microscopic(LOIN C) SEE Microscopic BELOW Result Comment: MICROSCOPIC LAB Wbc(LOINC) 0-5/hpf Wbc 1-5 LAB Rbc(LOINC) 0-3/hpf Rbc 0-5 LAB Casts(LOINC) Casts NONE LAB Crystals(LOINC) Crystals NONE LAB Amorphous(LOINC) Amorphous 3+ LAB Bacteria(LOINC) Bacteria NONE LAB Epi Cells(LOINC) Epi Cells FEW LAB Mucous(LOINC) Mucous NONE LAB Yeast(LOINC) Yeast NONE Result Comment: MICROSCOPIC PERFORMED USING UNSPUN URINE Performed By: #### [id number] #### [facility],[address] [place] [address] BMP WITH EGFR Collected: 11/21/2017 Status: F Source: [facility] 10:[address] [facility] REPOSITORY TYPE CODE TESTS RESULT OUT OF RANGE REFERENCE UNITS LAB BMP with eGFR(LOINC) BMP with eGFR Result Comment: BASIC METABOLIC PANEL LAB SODIUM(LOINC) 136 - 145 mmol/l Low SODIUM 128 LAB POTASSIUM(LOINC) 3.5 - 5.1 mmol/L High Alert POTASSIUM 8.1 Result Comment: { CALLED TO KANA AT 1110/HM { READ BACK BY KANA RA 1110 LAB CHLORIDE(LOINC) 98 - 107 mmol/L CHLORIDE Low 87 LAB CO2(LOINC) 21.0 - mmol/L 31.0 CO2 Low 11.3 LAB GLUCOSE(LOINC) 74 - 106 mg/dl GLUCOSE High 420 LAB BUN(LOINC) 6 - 20 mg/dl BUN High 150 LAB CREATININE(LOINC) 0.6 - 1.2 mg/dl High CREATININE 12.5 LAB CALCIUM(LOINC) 8.6 - mg/dl 10.2 CALCIUM 8.7 LAB ANION GAP(LOINC) 10 - 20 mmol/L ANION High GAP 38 LAB AGE(LOINC) years AGE 47 LAB eGFR(LOINC) 60 - 999 ML/MINUTE eGFR Low 3 LAB eGFR(AA)(LOINC) 60 - 999 ML/MINUTE eGFR(AA) Low 4 Result Comment: ACCORDING TO THE NATIONAL KIDNEY DISEASE EDUCATION PROGRAM(NKDE), A NORMAL eGFR IS A VALUE GREATER THAN OR EQUAL TO 60 ML/MIN/1.73 SQ METERS. CHRONIC KIDNEY DISEASE: <60mL/MIN/1.73 SQ METERS KIDNEY FAILURE: <15mL/MIN/1.73 SQ METERS THIS TEST SHOULD ONLY BE USED FOR PATIENTS 18 YEARS OF AGE AND OLDER. Performed By: #### [id number] #### [facility],[address] [place], [place] [id number] CHEST 1 VIEW Observed: 11/21/2017 Status: F Source: [facility] 10:28 AM [place] [address] Patient: COLLETTE KELLY Phone#: : [phone] Age: 47 Gender: F Pt. Type: ER Account: [id number] Location: [facility] Ordering: NAMAN VUONG Exam Date: 11/21/2017/10:16 Family Phys: JAROCHO BARROW Charge Code: [id number] Physician: Beadle Order #: [id number] DLP Dose#: PROCEDURE: X-RAY CHEST 1 VIEW COMPARISON: [facility], XR, CHEST 2 VIEWS, 06/25/2017, 9:27. INDICATIONS: Weakness FINDINGS: LUNGS: Normal. No significant pulmonary parenchymal abnormalities. VASCULATURE: Pulmonary vasculature is mildly prominent and may be on the basis of poor inspiration and AP technique. CARDIAC: Mild cardiomegaly. MEDIASTINUM: Normal. No visible mass or adenopathy. PLEURA: Normal. No effusion or pleural thickening. BONES: Curvature of the thoracic spine to the right is present. OTHER: The following devices are present in typical position - endotracheal tube - nasogastric tube, the distal tip is in not included in the [id number]. - Surgical clips are present in the right upper abdomen. CONCLUSION: 1. Mild cardiomegaly. 2. Pulmonary vasculature is mildly prominent however may be on the basis of poor inspiration and AP technique. There is otherwise no evidence of acute pulmonary abnormality. 3. Endotracheal tube terminates 1.7 cm proximal to the wiliam. Nasogastric tube is present with side port distal to the gastroesophageal junction. Dictated by: Laurel Collins MD on 11/21/2017 at 10:38 Approved by: Laurel Collins MD on 11/21/2017 at 10:38 CBC Collected: 11/21/2017 Status: F Source: [facility] 8:[address] [facility] REPOSITORY TYPE CODE TESTS RESULT OUT OF RANGE REFERENCE UNITS LAB CBC(LOINC) CBC Result Comment: CBC-COMPLETE BLOOD COUNT LAB WBC(LOINC) 4.5 - 10.8 x 10EE3/UL WBC High 22.8 LAB RBC(LOINC) 4.10 - x 10EE6/UL Low 5.30 RBC 1.31 LAB HEMOGLOBIN(LOINC 12.0 - g/dl ) Low 16.0 Alert HEMOGLOBIN 3.8 Result Comment: { CALLED TO TERI/YUNIEL 0831 { READ BACK BY H&H RA-0823 { TEST REPEATED LAB HEMATOCRIT(LOINC) 34.0 - % Low 46.0 Alert HEMATOCRIT 11.8 LAB MCV(LOINC) 80 - 99 fl MCV 91 LAB MCH(LOINC) 27 - 33 pg MCH 29 LAB MCHC(LOINC) 32 - 36 X10 3 MCHC 32 LAB RDW/CV(LOINC) 12.0 - % 15.6 RDW/CV 15.5 LAB PLATELET(LOINC) 150 - 450 x10EE3/ UL PLATELET High 534 LAB MPV(LOINC) 6.6 - fl 10.5 MPV 8.5 Result Comment: AUTOMATED DIFFERENTIAL LAB NEUT %(LOINC) 46.0 - 76.0 % NEUT % High 91.3 LAB LYMPH %(LOINC) 20.0 - 45.0 % Low LYMPH % 5.4 LAB MONOS %(LOINC) 0.0 - 10.0 % MONOS % 3.1 LAB EO %(LOINC) 0.0 - 7.0 % EO % 0.0 LAB BASO %(LOINC) 0.0 - 2.0 % BASO % 0.2 LAB Lymph #(LOINC) 0.80 - 2.80 x10EE3/U L Lymph # 1.20 LAB Neut #(LOINC) 1.50 - 7.10 x10EE3/U L Neut # High 20.90 LAB Iron #(LOINC) 0.20 - 1.00 x10EE3/U L Iron # 0.70 LAB EO #(LOINC) 0.00 - 0.50 x10EE3/U L EO # 0.00 LAB Baso #(LOINC) 0.00 - 0.10 x10EE3/U L Baso # 0.10 LAB MANUAL DIFF(LOINC) MANUAL DIFF N/A LAB MORPHOLOGY(LOINC ) MORPHOLOGY N/A Result Comment: {CD] Performed By: #### [id number] #### [place] [address] APTT Collected: 11/21/2017 Status: F Source: [facility] 8:00 [facility] TYPE CODE TESTS RESULT OUT OF RANGE REFERENCE UNITS LAB PTT(LOINC) 21.6 - 35.4 sec PTT 27.7 Performed By: #### [id number] #### [place] [address] PROTHROMBIN TIME AND Collected: 11/21/2017 Status: F Source: [facility] INR 8:00 [facility] TYPE CODE TESTS RESULT OUT OF REFERENCE UNITS RANGE LAB PROTHROMBIN TIME AND INR(LOINC) PROTHROMBIN TIME AND INR Result Comment: PROTHROMBIN TIME AND INR LAB PT-COUMADIN(LOINC) sec PT-COUMADIN 16.5 LAB INR(LOINC) 0.8 - 1.2 INR High 1.5 Result Comment: THE HEMOSIL THROMBOPLASTIN REAGENT USED IN THE PROTHROMBIN TIME TEST INTERACTS WITH THE DRUG CUBICIN (DAPTOMYCIN) AND WILL RESULT IN FALSELY ELEVATED PT / INR RESULTS INR INTERPRETATION INR INDICATION PREVENTION AND TREATMENT OF THROMBOEMBOLISM ASSOCIATED WITH: 2.0 - 3.0 ATRIAL FIBRILLATION, BIOPROSTHETIC HEART VALVES, PULMONARY EMBOLISM, VENOUS THROMBOSIS, SYSTEMIC EMBOLISM POST MYOCARDIAL INFARCTION 2.5 - 3.5 MECHANICAL HEART VALVES Performed By: #### [id number] #### [place] [address] TROPONIN Collected: 11/21/2017 Status: F Source: [facility] 8:00 [facility] REPOSITORY TYPE CODE TESTS RESULT OUT OF REFERENCE UNITS RANGE LAB TROPONIN 0.00 - 0.05 ng/ml I(LOINC) TROPONIN I 0.03 Result Comment: Elevated troponin (above the 99th percentile) usually indicates myocardial ischemia. Results must be interpreted within the clinical setting. 1.Non-ischemic pathology can also cause elevated troponin levels (e.g., acute pulmonary embolism, myocarditis, pericarditis, heart failure, intracranial injury, rhabdomyolisis, sepsis, shock and renal insufficiency). 2.Approximately 1% of healthy adults have elevated troponin levels. 3.Analytical false positive results rarely occur(due to multiple interferences such as heterophile antibodies). Performed By: #### [id number] #### [place] [address] CPK Collected: 11/21/2017 Status: F Source: [facility] 8:00 [facility] TYPE CODE TESTS RESULT OUT OF RANGE REFERENCE UNITS LAB CPK(LOINC) 26 - 140 U/L High CPK 657 Performed By: #### [id number] #### [place] [address] LACTATE Collected: 11/21/2017 Status: F Source: [facility] 8:00 [facility] TYPE CODE TESTS RESULT OUT OF REFERENCE UNITS RANGE LAB LACTATE(LIZETT 4.5 - 18.0 mg/dL NC) High Alert LACTATE 47.2 Result Comment: { CALLED TO TERI AT 0857/ { READ BACK BY RA TERI 0857 { TEST REPEATED Performed By: #### [id number] #### [place] [address] BB TYPE & SCREEN Collected: 11/21/2017 Status: F Source: [facility] 8:00 [facility] TYPE CODE TESTS RESULT OUT OF REFERENCE UNITS RANGE LAB BB TYPE & SCREEN(LOIN C) BB TYPE & SCREEN Result Comment: TYPE, Rh, AND SCREEN LAB ABO(LOINC) ABO B LAB Rh(LOINC) Rh NEG LAB ANTIBODY SCR(LOINC) ANTIBODY negative SCR Performed By: #### [id number] #### [place] [address] BB CROSSMATCH 1ST UNIT Collected: 11/21/2017 Status: F Source: [facility] 8:00 [facility] TYPE CODE TESTS RESULT OUT OF REFERENCE UNITS RANGE LAB BB CROSSMATCH 1ST UNIT(LOINC) BB CROSSMATCH 1ST UNIT Result Comment: [id number] REQUEST FOR BLOOD OR BLOOD COMPONENT UNIT #_1 11/21/17.0914.YUNIEL. LAB Component(LOINC) Component [facility] LAB Pt's ABO/Rh(LOINC) Pt's ABO/Rh B NEGATIVE LAB Donor's ABO/Rh(LOINC) Donor's ABO/Rh O NEGATIVE LAB Donor's Unit No(LOINC) Donor's Unit No [id number] LAB N(LOINC) Unit Exp Date 12/08/17 LAB Compatibility(LOINC) Compatibility COMPATIBLE Result Comment: { Pt's BB ID # [id number] Transfusion comments I have confirmed the above required items at the time of unit issue: Issuing Tech ........................ Date/Time .................. PT ID VERIFIED AT BEDSIDE PRIOR TO BLOOD ADMINISTRATION PT ID VERIFIED AND DOCUMENTED BY TWO NURSES PT Name same on unit tag,BB ID Bracelet, and blood administration form Verify PT name by asking to state name(if poss.) Pt's MR Number on unit tag is the same as BB ID Bracelet and admin form Verify Pt's ABO Group/Rh from admin form, and unit tag Verify unit number from unit and blood administration form Informed consent obtained? I have checked the above listed items and there were no discrepancies #1 RN signature .................... Date/Time .................. #2 RN signature .................... Date/Time .................. RECORD OF PATIENT'S RESPONSE Date/Time Prior to transfusion ......... Start of transfusion ......... 15 minute check ......... Blood complete/DC ......... SITE: [facility] Peripheral Vein Central Artery Peripheral Artery AMOUNT GIVEN (1/4, 1/2, 3/4 or full unit) WAS THERE A REACTION TO THE TRANSFUSION? Yes... No... If so, notify the physician and the lab immediately, and initiate a Blood Transfusion Reaction form. COMPLETE FORMS ENTIRELY. KEEP CARDBOARD COPY ATTACHED TO UNIT. PLACE WHITE COPY ON CHART. RETURN YELLOW COPY TO [facility] [place] UPON COMPLETION OF TRANSFUSION. Performed By: #### [id number] #### [facility],[address] [place] [address] CMP WITH EGFR Collected: 11/21/2017 Status: F Source: [facility] 8:[address] [facility] REPOSITORY TYPE CODE TESTS RESULT OUT OF RANGE REFERENCE UNITS LAB CMP with eGFR(LOINC) CMP with eGFR Result Comment: COMPREHENSIVE METABOLIC PANEL LAB SODIUM(LOINC) 136 - 145 mmol/l Low SODIUM 126 LAB POTASSIUM(LOINC) 3.5 - 5.1 mmol/L High Alert POTASSIUM 7.1 Result Comment: { CALLED TO LINDSEY AT 0909/HM { READ BACK BY RA LINDSEY 0909 LAB CHLORIDE(LOINC) 98 - 107 mmol/L CHLORIDE Low 84 LAB CO2(LOINC) 21.0 - mmol/L 31.0 CO2 Low 13.6 LAB GLUCOSE(LOINC) 74 - 106 mg/dl GLUCOSE High 387 LAB BUN(LOINC) 6 - 20 mg/dl BUN High 147 LAB CREATININE(LOINC) 0.6 - 1.2 mg/dl High CREATININE 13.2 LAB AST/SGOT(LOINC) 13 - 39 U/L AST/SGOT High 84 LAB ALK PHOS(LOINC) 38 - 126 U/L ALK PHOS High 153 LAB CALCIUM(LOINC) 8.6 - mg/dl 10.2 CALCIUM 8.9 LAB TOTAL PROTEIN(LOINC) 6.4 - 8.3 g/dl TOTAL Low PROTEIN 6.3 LAB ALBUMIN(LOINC) 3.4 - 4.8 g/dL ALBUMIN Low 2.6 LAB GLOBULIN(LOINC) 1.5 - 3.8 G/DL GLOBULIN 3.7 LAB A/G RATIO(LOINC) 0.9 - 1.6 A/G Low RATIO 0.7 LAB TOTAL BILI(LOINC) 0.0 - 1.5 mg/dl TOTAL BILI 0.5 LAB B/C RATIO(LOINC) 0 - 30 ratio B/C RATIO 11 LAB ALT/SGPT(LOINC) 8 - 35 U/L ALT/SGPT High 116 LAB ANION GAP(LOINC) 10 - 20 mmol/L ANION High GAP 36 LAB AGE(LOINC) years AGE 47 LAB eGFR(LOINC) 60 - 999 ML/MINUTE eGFR Low 3 LAB eGFR(AA)(LOINC) 60 - 999 ML/MINUTE eGFR(AA) Low 4 Result Comment: ACCORDING TO THE NATIONAL KIDNEY DISEASE EDUCATION PROGRAM(NKDE), A NORMAL eGFR IS A VALUE GREATER THAN OR EQUAL TO 60 ML/MIN/1.73 SQ METERS. CHRONIC KIDNEY DISEASE: <60mL/MIN/1.73 SQ METERS KIDNEY FAILURE: <15mL/MIN/1.73 SQ METERS THIS TEST SHOULD ONLY BE USED FOR PATIENTS 18 YEARS OF AGE AND OLDER. Performed By: #### [id number] #### [facility],[address] [place] [address] BB CROSSMATCH Collected: 11/21/2017 Status: F Source: [facility] ADDITIONAL UNIT 8:[address] [facility] REPOSITORY TYPE CODE TESTS RESULT OUT OF REFERENCE UNITS RANGE LAB BB CROSSMATCH ADDITIONAL UNIT(LOINC) BB CROSSMATCH ADDITIONAL UNIT Result Comment: [id number] REQUEST FOR BLOOD OR BLOOD COMPONENT UNIT #_2 11/21/17.0927.MELQUIADESN. LAB Component(LOINC) Component [facility] LAB Pt's ABO/Rh(LOINC) Pt's ABO/Rh B NEGATIVE LAB Donor's ABO/Rh(LOINC) Donor's ABO/Rh O NEGATIVE LAB Donor's Unit No(LOINC) Donor's Unit No [id number] LAB N(LOINC) Unit Exp Date 12/08/17 LAB Compatibility(LOINC) Compatibility COMPATIBLE Result Comment: { Pt's BB ID # [id number] Transfusion comments I have confirmed the above required items at the time of unit issue: Issuing Tech ........................ Date/Time .................. PT ID VERIFIED AT BEDSIDE PRIOR TO BLOOD ADMINISTRATION PT ID VERIFIED AND DOCUMENTED BY TWO NURSES PT Name same on unit tag,BB ID Bracelet, and blood administration form Verify PT name by asking to state name(if poss.) Pt's MR Number on unit tag is the same as BB ID Bracelet and admin form Verify Pt's ABO Group/Rh from admin form, and unit tag Verify unit number from unit and blood administration form Informed consent obtained? I have checked the above listed items and there were no discrepancies #1 RN signature .................... Date/Time .................. #2 RN signature .................... Date/Time .................. RECORD OF PATIENT'S RESPONSE Date/Time Prior to transfusion ......... Start of transfusion ......... 15 minute check ......... Blood complete/DC ......... SITE: Central Vein Peripheral Vein Central Artery Peripheral Artery AMOUNT GIVEN (1/4, 1/2, 3/4 or full unit) WAS THERE A REACTION TO THE TRANSFUSION? Yes... No... If so, notify the physician and the lab immediately, and initiate a Blood Transfusion Reaction form. COMPLETE FORMS ENTIRELY. KEEP CARDBOARD COPY ATTACHED TO UNIT. PLACE WHITE COPY ON CHART. RETURN YELLOW COPY TO [facility] [place] UPON COMPLETION OF TRANSFUSION. Performed By: #### [id number] #### [facility],[address] [place], [place] [id number] Observed: 11/21/2017 Status: F Source: [facility] CULTURE BLOOD 8:[address] [facility] REPOSITORY CULTURE BLOOD CULTURE BLOOD SET: 24HOUR REPORT NEGATIVE 48HOUR REPORT NEGATIVE 72HOUR REPORT NEGATIVE M I C R O B I O L O G Y R E P O R T FINAL Antimicrobial Susceptibility and Organism Identification Report Specimen Number : [id number] Requested : 11/21/17 Specimen Source : BLOOD Collected : 11/21/17 08:00 [facility] : Emergency Room Received : 11/21/17 08:00 Requesting Physician : ERROL DE LEON Patient/Specimen Tests and Comments Specimen Comments FINAL REPORT: No Growth at 5 Days Tech : Source : BLOOD ID # : [id number] FINAL Report Date : / / : Collected : 11/21/17 08:00 11/26/17.1199.BKO. 11/26/17.1199.BKO.COMPLETE Performed By: #### [id number] #### [facility],[address] [place] [address] EMERGENCY REPORT Observed: 11/21/2017 Status: F [facility] REPORT NAME ACCOUNT SEX AGE ADMIT DISCHARGE PT MED. RECORD# NUMBER DATE DATE TYPE COLLETTE KELLY [id number] F 47 11/21/17 11/21/17 3 [id number] ROOM: ER DATE OF : 1970 DICTATING PHYSICIAN: Naman Vuong CHIEF COMPLAINT: Weakness and vomiting. HISTORY OF PRESENT ILLNESS: The patient has a history of chronic renal failure. She is on home peritoneal dialysis. She is supposed to be doing this daily, but she did not do it last night. She states that yesterday she felt very weak and fatigued, more so than usual. She was nauseated last night and then early this morning started vomiting and has had emesis of dark to reddish emesis since. She has felt increasingly weak. She is not complaining of any fever or chills. No abdominal pain. Main complaint is ongoing weakness and nausea and vomiting. She did have a bowel movement a couple of days ago, which she states was hard. There was no blood in her stool at all as far as she knew. PAST MEDICAL HISTORY: Significant for multiple medical problems. Most notably hypertension, diabetes and chronic renal failure. She has generally been poorly compliant with medications in the past. MEDICATIONS: Per med rec list. ALLERGIES: Per allergy list. PAST SURGICAL HISTORY: She has had previous cholecystectomy. SOCIAL HISTORY: She lives at home with family. She does smoke. She does not drink alcohol. REVIEW OF SYSTEMS: She has had significant anemia in the past. She gets regular shots to help her blood count. She does not have any known heart disease. She had a stress test done in 2017 that was equivocal. Previous echocardiogram showed good ventricular function. No recent trauma. PHYSICAL EXAMINATION: This is a 47-year-old female who is awake and alert. She is a little lethargic but easily arousable. Her skin is extremely pale but warm and dry without any rashes or lesions. HEENT exam shows she is edentulous, extremely pale mucosa, but pupils are equally round and reactive to light. Extraocular muscles are intact. Nose, mouth and throat are otherwise unremarkable. Her neck is very supple. Normal range of motion. Nontender. Lungs seem clear without crackles or wheezes. Cardiac exam shows regular rhythm without ectopy or murmurs. Abdomen is very soft Page 1 of 3 [facility]E KELLY Emergency Room Report and nontender. She has a peritoneal dialysis catheter in line which appears clean. There is no redness at all around the insertion. She moves all extremities appropriately. There is no focal weakness. She has approximately 2+ symmetrical edema to her lower extremities which she states is normal for her. She is not having tenderness. She does have good peripheral pulses. Capillary refill seems diminished at 2 seconds. She does respond appropriately. She does not seem confused. Temperature 97, pulse 82, respirations, blood pressure 140/66. O2 saturation is 96%. DIAGNOSTIC DATA: EKG showed some mild interventricular block but normal sinus rhythm without acute abnormalities. Labs returned showing most notably a critically low H&H of 3.8 and 11.8. CBC showed white count 22,800 with 91% neutrophils. She did have emesis shortly after arrival that was somewhat brownish. This was sent for Gastroccult and was positive. Her PT/INR was 1.5. PTT was 27. 7. Initial CMP showed sodium of 126, potassium 7.1. BUN and creatinine were 147 and 13.2. Glucose was 387. Other labs showed a CPK of 657, troponin of 0.03. CO2 was 13. 6, anion gap was very high at 36. EMERGENCY DEPARTMENT COURSE AND TREATMENT: IV of normal saline was placed and run at 1000 mL/hr. EKG and a number of lab studies were obtained. I ordered two units of packed red cells and discussed the case with Dr. Rosen who referred to [facility] crystal lapper. The patient has been to [place] before. I discussed the case with Dr. Huynh there who did accept the patient in transfer. The patient was given some Zofran orally and Protonix orally while we were waiting on the blood to be given. She continued to have ongoing nausea. She remained otherwise awake and alert. Blood pressure and pulse remained relatively unchanged. However, she had an episode where she became a little less responsive and became quite bradycardiac. Heart rate dropped down into the 30s. I was called to the bedside and she seemed much more lethargic and less responsive. As I was trying to talk to her she basically became apneic with heart rate dropping into the 20s. She continued to have good pulses with her rhythm which was quite bradycardiac and bag was obtained and I did bag ventilate her as she did have some agonal type gasping respirations until respiratory therapist got there. She had previously been treated with an amp of calcium gluconate, an amp of bicarb, an amp of D50 and 10 units of insulin for her hyperkalemia. She had previously been given an albuterol aerosol as well. However, on her rhythm, it did appear that her complexes were a little wider, so I gave her another amp of bicarb, but she remained obtunded and essentially apneic so we proceeded to get ready to intubate her. As we were getting ready to do this, she started becoming more agitated and it was apparent that she would need to be given something for her intubation. Her O2 saturations remained in the upper 90s to 100. She was given 80 mg of succinylcholine. She had previously been given 0.5 mg of atropine for her bradycardia. Heart rate had come up noticeably after that and that was when she started to become a little more responsive, though still remained quite obtunded. The patient was intubated by respiratory therapist without any difficulties. Saturation remained in the upper 90s to 100. Tube was placed and she was given bag respirations, which initially more one-sided on the right and then as we pulled the tube bag, it was more bilateral. She was bagged and saturations remained good. Her Page 2 of 3 COLLETTE KELLY Emergency Room Report rhythm remained chaotic and became a bit more irregular and somewhat agonal interspersed with some episodes of tachycardia. She did have generally good pulses with these and blood pressure ranged from the 90s to 130s. The QRS remained quite widened and a repeat EKG showed markedly widened QRS and it was felt this most likely was from her hyperkalemia. It did read the possibility of an acute STEMI, but difficulty to completely ascertain that because of the very wide complexes. I discussed the case again with Dr. Huynh at [facility] and he advised giving additional bicarb and calcium to treat persistent hyperkalemia, which is probably exacerbated by the succinylcholine given. We also started bicarbonate infusion as well. With additional bicarb and another amp of calcium gluconate, her QRS complexes narrowed considerably and rhythm became more regular and sinus blood pressure remained very good. We did give her some additional Vecuronium, placed her on the ventilator. We tried to arrange air transport to [facility], but because of weather, they were not flying. We proceeded to arrange land transfer per local ambulance. ABGs were obtained and later on an additional potassium level. Her ABGs showed a pH of 7.2, pCO2 of 36, pO2 of 148, bicarbonate 14. Potassium level was drawn immediately after her intubation. It was 8.1 but another potassium drawn before she was transferred was 6.6. The patient's family was here the entire time and was kept appraised of the situation. She was given two units of packed red cells during this entire time in the ED and a total of about 1.5 to 2 liters of saline. As mentioned, blood pressure and pulse were much improved at that point. A repeat CBC showed hemoglobin of 5.7 up from her initial 3.8. IMPRESSION: 1. The patient presents with vomiting and presumably upper GI bleed with marked anemia. 2. Chronic renal failure with poor compliance with dialysis, markedly elevated BUN and creatinine and hyperkalemia. Dictated By: Naman Vuong MD 11/21/17 13:24 JOB #: [id number] Transcribed By: [email or web address] 11/21/17 13:33 Electronically signed by: BANG Vuong M.D. 11/26/17 07:38 Page 3 of 3 COLLETTE KELLY Emergency Room Report CV VENOUS LEG RT Observed: 11/17/2017 Status: F Source: [facility] 10:34 AM [place] [address] Patient: COLLETTE KELLY. Phone#: : [phone] Age: 47 Gender: F Pt. Type: ER Account: [id number] Location: 052 Ordering: GALLITO CHRISTOPHER Exam Date: 11/17/2017/10:07 Family Phys: KANNAN GAMBLE Charge Code: [id number] Physician: DR. GALLITO NICKERSON Beadle Order #: [id number] DLP Dose#: PROCEDURE: VENOUS DOPPLER RT LEG COMPARISON: None. INDICATIONS: Pain TECHNIQUE: Color duplex Doppler ultrasound evaluation analysis was performed in the usual manner. TELEPHONE CLEANER: DUGLAS RISK FACTORS FOR VENOUS DISEASE: EXAMINATION: RIGHT +Present -Reduced o Absent LEFT SPONT PHASIC AUG REFLUX COMP SPONT PHASIC AUG REFLUX COMP + + + o + CFV + + + o + + SFJ + + + o + FV (prox) + FV (mid) + FV (dist) + + + o + POP V + + + o + T/P TRUNK + + + o + PTV + + + o + PERONEAL V + GSV GASTROC SOLEAL V TELEPHONE CLEANER'S NOTES: Lymph node noted in right groin. Echolucent structure noted above the right knee. Continued Report - Page 2 of 2 Patient: COLLETTE KELLY. Phone#: : 1970 Age: 47 Gender: F Pt. Type: ER Account: [id number] Location: 052 Ordering: GALLITO CHRISTOPHER Exam Date: 11/17/2017/10:07 Family Phys: KANNAN GAMBLE Charge Code: [id number] Physician: DR. GALLITO NICKERSON Beadle Order #: [id number] DLP Dose#: FINDINGS: THROMBI: None visible. COMPRESSIBILITY: Normal. OTHER: Echolucent focus in the popliteal fossa is consistent with a cyst. A nonspecific appearing lymph node is present in the right groin. CONCLUSION: 1. There is no evidence of superficial or deep vein thrombus. 2. Popliteal cyst is present. Dictated by: Laurel Collins MD on 11/17/2017 at 10:44 Approved by: Laurel Collins MD on 11/17/2017 at 10:44 EMERGENCY REPORT Observed: 11/17/2017 Status: F Source: [facility] 9:08 AM [facility] REPORT NAME ACCOUNT SEX AGE ADMIT DISCHARGE PT MED. RECORD# NUMBER DATE DATE TYPE COLLETTE KELLY [id number] F 47 11/17/17 11/17/17 3 [id number] ROOM: ER DATE OF : 1970 DICTATING PHYSICIAN: Gallito Nickerson CHIEF COMPLAINT: Right leg pain. HISTORY OF PRESENT ILLNESS: This is a 47-year-old female with an extensive history requiring kidney transplant, insulin dependent diabetes, hypertension and peritoneal dialysis. She presented to the emergency department on 10/27/17 with a chief complaint of fall to the right knee. She was seen and evaluated that day. X-rays were negative. She was given pain medication. Follow with the primary care physician. They ordered her Ultram which she says does not work and had her go to physical therapy. Physical therapy sent her over saying that she needs an MRI of her knee. There is no associated weakness, numbness, tingling or anything that would indicate a need for an MRI. They said that they cannot get a hold of their doctor, their primary care physician at [facility], Dr. Gamble, to treat the pain. She denies any new falls. she describes the pain as all the way from her hip down to her thigh and her knee. PAST MEDICAL HISTORY: Hypertension, diabetes, anxiety, chronic renal failure, peritoneal dialysis. PAST SURGICAL HISTORY: Bladder tumor removal. MEDICATIONS: See nurse's note. ALLERGIES: Augmentin, Bactrim, Percocet. FAMILY HISTORY: Noncontributory. SOCIAL HISTORY: Positive for tobacco, denies alcohol or illicit drug abuse. PHYSICAL EXAMINATION: Blood pressure 199/102, pulse 99, respiratory rate 20, temperature 98.1, O2 saturation 94% on room air. General: Well-developed, well-nourished, well-hydrated, alert and oriented x3. No acute distress. She is complaining of right leg pain. Head is normocephalic, atraumatic. Pupils are reactive to light. Bilateral mucous membranes are moist. Full range of motion. Neck is supple without difficulty. Heart rate and rhythm is regular without murmur, gallop or rub. Lungs are clear to auscultation bilaterally without wheezes, rales or rhonchi. Abdomen is soft without reproducible tenderness, guarding, rebound or rigidity, pulsatile abdominal mass or hernia. Right lower extremity has thigh tenderness with no obvious Page 1 of 2 COLLETTE KELLY Emergency Room Report swelling or signs of Homans. Good pulses and perfusion femorally. She does not have any bony tenderness or ligamentous instability to the knee itself. She presents for evaluation. PLAN/DISPOSITION: I will get a Duplex ultrasound, give her something for pain and contact her primary care doctor, Dr. Gamble. Dictated By: Gallito Nickerson DO 11/17/17 09:35 JOB #: [id number] Transcribed By: [email or web address] 11/17/17 19:22 Electronically signed by: E-Sign: GALLITO NICKERSON MD 01/06/18 12:00 Page 2 of 2 LETICIA COLLETTE Betancourt Emergency Room Report EMERGENCY REPORT Observed: 11/17/2017 Status: F Source: [facility] 9:08 AM [facility]PORT NAME ACCOUNT SEX AGE ADMIT DISCHARGE PT MED. RECORD# NUMBER DATE DATE TYPE COLLETTE KELLY [id number] F 47 11/17/17 11/17/17 3 [id number] ROOM: ER DATE OF : 1970 DICTATING PHYSICIAN: Gallito Nickerson ADDENDUM: CHIEF COMPLAINT: Right leg pain. Duplex ultrasound is negative for DVT. I wrote for Percocet for the patient to take here. She said she was allergic to it; although, she got it when she was here in the emergency department and a prescription went home for one. I spoke with her primary care physician, Dr. Gamble, who states that she can follow up in the office and he does not recommend any additional pain medication for her. I did give her some Toradol and Flexeril here. She is going to be discharged with right leg pain. They are to call the office today to see if they can get a sooner appointment in follow up and discuss reasons for ED return sooner. Dictated By: Gallito Nickerson DO 11/17/17 10:25 JOB #: [id number] Transcribed By: am 11/17/17 19:50 Electronically signed by: E-Sign: GALLITO NICKERSON MD 01/06/18 12:00 Page 1 of 1 COLLETTE KELLY Emergency Room Report PROGRESS Observed: 11/06/2017 Status: COMPLETED Source: [place] 8:07 AM [facility] REPOSITORY O ID: [id number] Author: Augustina (Sendy) Podlogar Service: (none) Author Type: Nurse Practitioner Type: Progress Notes Filed: 11/07/2017 11:16 AM Note Text: 46 year old female here for INACTIVATED INFLUENZA VACCINE. 4139-8012 Season Patient is identified by name and date of : Yes [] CONTRAINDICATIONS color enhanced section Age less than 6 months? No Allergy to eggs, chicken, chicken feathers, or chicken dander? No Allergy to thimerosal (a preservative) or formaldehyde, gelatin? No History of severe reaction to any vaccine component or a previous dose of influenza vaccination? No History of Guillain-Taylor Syndrome within 6 weeks after a previous influenza vaccine? No Patient is not moderately or severely ill? No Current temperature greater or equal to 100.4F? No History of Bone Marrow Transplant prior 6 months or solid organ transplant in the past 3 months ? No History of fainting after a prior injection or medical procedure? No- ? If patient has fainted in the past, the CDC recommends sitting or lying down for 15 minutes after the vaccination. [] VERIFICATION color enhanced section Was the answer Yes for any of the above contraindications? No contraindications present. Acceptable to proceed with vaccine. Patient/guardian agrees the above answers are true to the best of their knowledge? Yes Flu vaccine information sheet given? Yes See immunization activity in [facility] for details of immunizations adminstered today. Patient age: [age] year old For The 7445-1444 Flu Season 6-35 months old: Fluzone 0.25 ml - IM (Preservative Free) 3 years of age: Fluzone 0.5 ml - IM (Preservative Free) 3 years and older: Fluzone 0.5 ml- IM-(with Preservatives) 65+ years old: 2-49 years old Fluzone High-Dose 0.5 ml - IM (Preservative Free) FLUMIST- intranasal REMEMBER: If patient is less than 9 years of age and this is the first vaccine of Influenza to be received in any flu season, they should receive a second dose in one months time. Reviewed Augustina Vaughn APRN.SENDY PROGRESS Observed: 11/06/2017 Status: COMPLETED Source: [place] 8:00 AM [facility] REPOSITORY HNO ID: [id number] Author: Augustina Valle) Johana Service: (none) Author Type: Nurse Practitioner Type: Progress Notes Filed: 11/07/2017 11:16 AM Note Text: 11/06/2017 Patient presents with: ER F/U: kana trivedi krt knee injury 10/24/17 SUBJECTIVE: This is a 46 year old that is here today for Above Complaints. Tripped over cord and fell onto right knee on 10/24/2017. Reports had immediate pain. Went to ER on 10/27/2017 for continued pain and swelling. Reports had x-ray completed and reports it was fine. Was given prescription for percocet, Toradol and flexeril. Reports these were helpful for pain, however she has completed all prescriptions. NO ER records available for review at this time. ONSET: LOCATION:right knee DURATION: constant CHARACTERISTICS:constant burning, sharp, stabbing AGGRAVATING FEATURES: movement ALLEVIATING FEATURES: has tried ice, heat, tylenol, and chiropractor with little releif RADIATION: from bottom of knee clear up to hip TIMING:no Denies fevers, chills, erythema, ecchymosis, hotness to touch,new numbness, tingling, or weakness. PAST MEDICAL HISTORY Diagnosis Date - Diabetes mellitus ([facility]) - ESRD (end stage renal disease) on dialysis ([facility]) 03/2017 Dr. Prieto ALLERGIES Augmentin [Amoxicillin-Pot Clavulanate]; Bactrim [Sulfamethoxazole-Trimethoprim]; Buspar [Buspirone Hcl]; Lasix [Furosemide] MEDICATIONS Current Outpatient Prescriptions: cyclobenzaprine HCl (CYCLOBENZAPRINE ORAL) Take 5 mg by mouth three times daily as needed. cloNIDine HCl (CATAPRES) 0.1 mg tablet 1 tablet four times daily. amLODIPine (NORVASC) 10 mg tablet 1 tablet once daily. sertraline (ZOLOFT) 50 mg tablet Take 1 tablet by mouth once daily. insulin aspart U-100 (NOVOLOG FLEXPEN U-100 INSULIN) 100 unit/mL inpn Inject subcutaneously three times daily with meals. sliding scale insulin glargine,hum.rec.anlog (LANTUS U-100 INSULIN SUBCUTANEOUS) Inject 7 Units subcutaneously daily at bedtime. docusate sodium (COLACE) 100 mg capsule Take 100 mg by mouth once daily. ALPRAZolam (XANAX) 0.25 mg tablet calcium acetate (PHOSLO) 667 mg capsule [employer] tablet cyclobenzaprine (FLEXERIL) 10 mg tablet Take 1 tablet by mouth three times daily as needed for Muscle Spasm. predniSONE (DELTASONE) 20 mg tablet Take 1 tablet by mouth once daily. traMADol (ULTRAM) 50 mg tablet Take 1 tablet by mouth twice daily as needed for Pain for up to 3 days. No current facility-administered medications for this visit. Medications and allergies reviewed by this provider. SOCIAL HISTORY Social History Marital status: Spouse name: Years of education: Number of children: Social History Main Topics Smoking status: Current Every Day Smoker Packs/day: 0.00 Years: 0.00 Smokeless tobacco: Never Used Alcohol use: No REVIEW OF SYSTEMS All other reviewed and negative other than HPI. OBJECTIVE: BP 130/64 (BP Site: Left Arm, BP Position: Sitting, BP Cuff Size: Regular Adult) Pulse 72 Resp 18 Wt 79.9 kg (176 lb 0.6 oz) BMI 27.57 kg/m? . Vital signs reviewed by this provider. APPEARANCE Well appearing, alert, in no acute distress, well-hydrated, well nourished. EXTREMITIES Extremities normal, No deformities, No skin discoloration and Normal pulses bilaterally. Right knee : without redness, warmth, ecchymosis and drainage. of the tibial tubercle, patella, medial joint line, lateral joint line, medial epicondyle and lateral epicondyle . Swelling is present. No TTP. Movement is limited d/t pain with flexion. No instability of patella or effusion observed. Right hip: without swelling, redness and drainage. Limited exam due to patient's knee pain with flexion. No TTP ASSESSMENT/PLAN: 1. Acute pain of right knee - ICD9: 719.46, ICD10: M25.561 (primary diagnosis) - no red flag symptoms - red flag symptoms discussed - XR KNEE GENERAL 4V AP BOTH/PA BOTH/LAT/MERC RT - CONSULT TO ORTHOPAEDICS - CONSULT TO PHYSICAL THERAPY - TRAMADOL 50 MG TABLET PDMP website checked and validated. All prescriptions have been APPROPRIATELY filled. No suspicious activity was identified. 11/06/2017 by Augustina Vaughn APRN.CELLOPHANE WRAPPING EXAMINER - flexeril 10 mg three times daily for muscle spasms- discussed not driving while taking this or ultram and do not take together- verbalizes understanding - prednisone 20 mg daily for 5 days- discussed common side effcts and she needs to check blood sugar more frequently to adjust insulin - use of NSIADS contraindicated d/t renal failure- encouraged ice and elevation when sitting- encouraged to walk and move knee- reports to me that ER told her not to walk - follow-up with ortho and after PT completion, sooner if needed, to ER with red flag symptoms 2. Need for vaccination - ICD9: V05.9, ICD10: Z23 - TETANUS/DIPTHERIA BOOSTER (OVER 7), PF IM - INFLUENZA VACCINE QUADRIVALENT AGE 3 YRS PLUS + IM Augustina Vaughn APRN.CNP Prescription instructions reviewed with patient as applicable. Patient advised if symptoms do not improve or if symptoms worsen sooner, to contact their primary care physician. Potential red flag symptoms discussed with the patient. Reviewed appropriate action plan to take if red flag symptoms occur. Patient agreeable to treatment plan. CNOV Observed: 11/06/2017 Status: COMPLETED Source: [place] 7:40 AM [facility] REPOS[facility] COLLETTE KELLY ([id number]) 1970 F TRN Date Time Provider Department 11/06/17 7:40 AM AUGUST[facility]AUGH[facility] During your visit today, we recorded the following information about you: Pulse Respiration Blood pressure Weight 72/minute 18/minute 130/64 79.9 kg Augustina Vaughn APRN.CNP 11/07/2017 11:16 AM Signed 11/06/2017 Patient presents with: ER F/U: kana trivedi krt knee injury 10/24/17 SUBJECTIVE: This is a 46 year old that is here today for Above Complaints. Tripped over cord and fell onto right knee on 10/24/2017. Reports had immediate pain. Went to ER on 10/27/2017 for continued pain and swelling. Reports had x-ray completed and reports it was fine. Was given prescription for percocet, Toradol and flexeril. Reports these were helpful for pain, however she has completed all prescriptions. NO ER records available for review at this time. ONSET: LOCATION:right knee DURATION: constant CHARACTERISTICS:constant burning, sharp, stabbing AGGRAVATING FEATURES: movement ALLEVIATING FEATURES: has tried ice, heat, tylenol, and chiropractor with little releif RADIATION: from bottom of knee clear up to hip TIMING:no Denies fevers, chills, erythema, ecchymosis, hotness to touch,new numbness, tingling, or weakness. PAST MEDICAL HISTORY Diagnosis Date - Diabetes mellitus ([facility]) - ESRD (end stage renal disease) on dialysis ([facility]) 03/2017 Dr. Prieto ALLERGIES Augmentin [Amoxicillin-Pot Clavulanate]; Bactrim [Sulfamethoxazole-Trimethoprim]; Buspar [Buspirone Hcl]; Lasix [Furosemide] MEDICATIONS Current Outpatient Prescriptions: cyclobenzaprine HCl (CYCLOBENZAPRINE ORAL) Take 5 mg by mouth three times daily as needed. cloNIDine HCl (CATAPRES) 0.1 mg tablet 1 tablet four times daily. amLODIPine (NORVASC) 10 mg tablet 1 tablet once daily. sertraline (ZOLOFT) 50 mg tablet Take 1 tablet by mouth once daily. insulin aspart U-100 (NOVOLOG FLEXPEN U-100 INSULIN) 100 unit/mL inpn Inject subcutaneously three times daily with meals. sliding scale insulin glargine,hum.rec.anlog (LANTUS U-100 INSULIN SUBCUTANEOUS) Inject 7 Units subcutaneously daily at bedtime. docusate sodium (COLACE) 100 mg capsule Take 100 mg by mouth once daily. ALPRAZolam (XANAX) 0.25 mg tablet calcium acetate (PHOSLO) 667 mg capsule [employer] RX tablet cyclobenzaprine (FLEXERIL) 10 mg tablet Take 1 tablet by mouth three times daily as needed for Muscle Spasm. predniSONE (DELTASONE) 20 mg tablet Take 1 tablet by mouth once daily. traMADol (ULTRAM) 50 mg tablet Take 1 tablet by mouth twice daily as needed for Pain for up to 3 days. No current facility-administered medications for this visit. Medications and allergies reviewed by this provider. SOCIAL HISTORY Social History Marital status: Spouse name: Years of education: Number of children: Social History Main Topics Smoking status: Current Every Day Smoker Packs/day: 0.00 Years: 0.00 Smokeless tobacco: Never Used Alcohol use: No REVIEW OF SYSTEMS All other reviewed and negative other than HPI. OBJECTIVE: BP 130/64 (BP Site: Left Arm, BP Position: Sitting, BP Cuff Size: Regular Adult) Pulse 72 Resp 18 Wt 79.9 kg (176 lb 0.6 oz) BMI 27.57 kg/m? . Vital signs reviewed by this provider. APPEARANCE Well appearing, alert, in no acute distress, well- hydrated, well nourished. EXTREMITIES Extremities normal, No deformities, No skin discoloration and Normal pulses bilaterally. Right knee : without redness, warmth, ecchymosis and drainage. of the tibial tubercle, patella, medial joint line, lateral joint line, medial epicondyle and lateral epicondyle . Swelling is present. No TTP. Movement is limited d/t pain with flexion. No instability of patella or effusion observed. Right hip: without swelling, redness and drainage. Limited exam due to patient's knee pain with flexion. No TTP ASSESSMENT/PLAN: 1. Acute pain of right knee - ICD9: 719.46, ICD10: M25.561 (primary diagnosis) - no red flag symptoms - red flag symptoms discussed - XR KNEE GENERAL 4V AP BOTH/PA BOTH/LAT/MERC RT - CONSULT TO ORTHOPAEDICS - CONSULT TO PHYSICAL THERAPY - TRAMADOL 50 MG TABLET PDMP website checked and validated. All prescriptions have been APPROPRIATELY filled. No suspicious activity was identified. 11/06/2017 by Augustina Vaughn APRN.CELLOPHANE WRAPPING EXAMINER - flexeril 10 mg three times daily for muscle spasms- discussed not driving while taking this or ultram and do not take together- verbalizes understanding - prednisone 20 mg daily for 5 days- discussed common side effcts and she needs to check blood sugar more frequently to adjust insulin - use of NSIADS contraindicated d/t renal failure- encouraged ice and elevation when sitting- encouraged to walk and move knee- reports to me that ER told her not to walk - follow-up with ortho and after PT completion, sooner if needed, to ER with red flag symptoms 2. Need for vaccination - ICD9: V05.9, ICD10: Z23 - TETANUS/DIPTHERIA BOOSTER (OVER 7), PF IM - INFLUENZA VACCINE QUADRIVALENT AGE 3 YRS PLUS + IM Augustina Vaughn CASHIER MANAGER.CELLOPHANE WRAPPING EXAMINER Prescription instructions reviewed with patient as applicable. Patient advised if symptoms do not improve or if symptoms worsen sooner, to contact their primary care physician. Potential red flag symptoms discussed with the patient. Reviewed appropriate action plan to take if red flag symptoms occur. Patient agreeable to treatment plan. Augustina Vaughn APRN.CELLOPHANE WRAPPING EXAMINER 11/07/2017 11:16 AM Signed 46 year old female here for INACTIVATED INFLUENZA VACCINE. Season Patient is identified by name and date of : Yes [] CONTRAINDICATIONS color enhanced section Age less than 6 months? No Allergy to eggs, chicken, chicken feathers, or chicken dander? No Allergy to thimerosal (a preservative) or formaldehyde, gelatin? No History of severe reaction to any vaccine component or a previous dose of influenza vaccination? No History of Guillain-Taylor Syndrome within 6 weeks after a previous influenza vaccine? No Patient is not moderately or severely ill? No Current temperature greater or equal to 100.4F? No History of Bone Marrow Transplant prior 6 months or solid organ transplant in the past 3 months ? No History of fainting after a prior injection or medical procedure? No- ? If patient has fainted in the past, the CDC recommends sitting or lying down for 15 minutes after the vaccination. [] VERIFICATION color enhanced section Was the answer Yes for any of the above contraindications? No contraindications present. Acceptable to proceed with vaccine. Patient/guardian agrees the above answers are true to the best of their knowledge? Yes Flu vaccine information sheet given? Yes See immunization activity in [facility] for details of immunizations adminstered today. Patient age: [age] year old For The 0853-7796 Flu Season 6-35 months old: Fluzone 0.25 ml - IM (Preservative Free) 3 years of age: Fluzone 0.5 ml - IM (Preservative Free) 3 years and older: Fluzone 0.5 ml- IM-(with Preservatives) 65+ years old: 2-49 years old Fluzone High-Dose 0.5 ml - IM (Preservative Free) FLUMIST- intranasal REMEMBER: If patient is less than 9 years of age and this is the first vaccine of Influenza to be received in any flu season, they should receive a second dose in one months time. Reviewed Augustina MaganalogBLAINE ardon PodlogBLAINE ardon 11/06/2017 8:33 AM Signed Use heat or ice to area- do not sleep on heating Do not drive while taking cyclobenzaprine (flexeril) or ultram or take them together Check fasting and before each meal while taking prednisone Referring Provider: SELF [200] Allergies As of Date: 11/06/2017 Noted Allergy Reaction AUGMENTIN (AMOXICILLIN-POT CLAVUL*07/22/2017 11 - Vomiting BACTRIM (SULFAMETHOXAZOLE-TRIMETH*07/22/2017 14 - Other: See Comments Comments: Chest pain BUSPAR (BUSPIRONE HCL) 10/22/2017 14 - Other: See Comments Comments: Night terrors LASIX (FUROSEMIDE) 07/22/2017 7 - Swelling Date Reviewed: 11/06/2017 Reviewed by: Sharlene Sanabria LPN - Fully Assessed Reason for Visit: ER F/U [41] Cmt: kana trivedi krt knee injury 10/24/17 Imm/Inj [58] Cmt: Flu Vaccine Reason For Visit History Recorded Primary Visit Diagnosis:Acute pain of right knee [M25.561] Other Visit Diagnosis:Need for vaccination [Z23] Order(s):TETANUS/DIPTHERIA BOOSTER (OVER 7), PF IM [10671QMF] Order #: [id number] INFLUENZA VACCINE QUADRIVALENT AGE 3 YRS PLUS + IM [[id number]] Order #: [id number] XR KNEE GENERAL 4V AP BOTH/PA BOTH/LAT/MERC RT [[id number]] Order #: [id number] FUTURE CONSULT TO ORTHOPAEDICS [9014] Order #: [id number]: 1 CONSULT TO PHYSICAL THERAPY [9063] Order #: [id number]: 1 cyclobenzaprine (FLEXERIL) 10 mg tabletTake 1 tablet by mouth three times daily as needed for Muscle Spasm.Disp: 30 tabletRfl: 0 predniSONE (DELTASONE) 20 mg tabletTake 1 tablet by mouth once daily.Disp: 5 tabletRfl: 0 traMADol (ULTRAM) 50 mg tabletTake 1 tablet by mouth twice daily as needed for Pain for up to 3 days.Disp: 6 tabletRfl: 0 Prescriptions as of 11/06/2017 Sig: CYCLOBENZAPRINE ORAL Take 5 mg by mouth three time* CLONIDINE HCL 0.1 MG TABLET 1 tablet four times daily. AMLODIPINE 10 MG TABLET 1 tablet once daily. SERTRALINE 50 MG TABLET Take 1 tablet by mouth once d* INSULIN ASPART U-100 100 UNI* Inject subcutaneously three t* LANTUS U-100 INSULIN SUBCUTAN* Inject 7 Units subcutaneously* DOCUSATE SODIUM 100 MG CAPSULE Take 100 mg by mouth once kailash* ALPRAZOLAM 0.25 MG TABLET CALCIUM ACETATE 667 MG CAPSULE [employer] RX 1 MG-60 MG-300 MCG* CYCLOBENZAPRINE 10 MG TABLET Take 1 tablet by mouth three * PREDNISONE 20 MG TABLET Take 1 tablet by mouth once d* TRAMADOL 50 MG TABLET Take 1 tablet by mouth twice * Problem List As Of Date 11/06/2017 Noted Resolved ESRD (end stage renal disease) ([facility]) [N18.6] INVALID FOR* More... Other instructions from your clinician: Use heat or ice to area- do not sleep on heating Do not drive while taking cyclobenzaprine (flexeril) or ultram or take them together Check fasting and before each meal while taking prednisone Prescriptions ordered this encounter Disp Refills Start End CYCLOBENZAPRINE 10 MG TABLET 30 t* 0 11/06/2017 Route: ORAL Sig: Take 1 tablet by mouth three times daily as needed for Muscle Spasm. PREDNISONE 20 MG TABLET 5 ta* 0 11/06/2017 Route: ORAL Sig: Take 1 tablet by mouth once daily. TRAMADOL 50 MG TABLET 6 ta* 0 11/06/2017 11/09/2017 Class: Print RX Route: ORAL Sig: Take 1 tablet by mouth twice daily as needed for Pain for up to 3 days. Medications Discontinued During This Encounter oxyCODONE-acetaminophen (PERCOCET) 1* 11/06/2017 Class: Historical Med Route: ORAL Sig: Take 1 tablet by mouth every 6 hours as needed. Disc: Course of therapy completed methylprednisolone acetate (DEPO-MED* 11/06/2017 Class: Historical Med Route: INJECTION(UNSPECIFIED PARENTERAL ROUTES) Sig: by INJECTION(UNSPECIFIED PARENTERAL ROUTES) route. Disc: Course of therapy completed ketorolac (TORADOL) 10 mg tablet 11/06/2017 Class: Historical Med Route: ORAL Sig: Take 10 mg by mouth every 6 hours as needed. Disc: Course of therapy completed Follow-up and Disposition History Recorded Questionnaire: CRISTY-7 ANXIETY SCALE Feeling nervous, anxious, or on edge -> 3 Nearly every day Not being able to stop or control worrying -> 0 Not at all sure Worrying too much about different things -> 3 Nearly every day Trouble relaxing -> 3 Nearly every day Being so restless that it's hard to sit still -> 0 Not at all sure Being easily annoyed or irritable -> 1 Several days Feeling afraid as if something awful might happen -> 3 Nearly every day CRISTY-7 Anxiety Score -> 10 If you checked off any problems, how difficult have these problems made it for you to do your work, take care of things at home, or get along with other people? -> Somewhat difficult Questionnaire: PHQ9P Little or no interest or pleasure in doing things -> 3 Nearly every day Feeling down, depressed, or hopeless -> 3 Nearly every day Trouble falling or staying asleep, or sleeping too much - > 3 Nearly every day Feeling tired or having little energy -> 3 Nearly every day Poor appetite or overeating -> 0 Not at all Feeling bad about yourself- or that you are a failure or having let yourself or your family down -> 1 Several days Trouble concentrating on things, such as reading the newpaper or watching television -> 3 Nearly every day Moving or speaking so slowly that other people could have noticed? Or the opposite- being so fidgety or restless that you have been moving around a lot more than usual -> 0 Not at all Thoughts that you would be better off or of hurting yourself in some way -> 0 N- o- t a- t a- ll PHQ9P Score -> 16 If you checked off any problems, how difficult have these problems made it for you to do your work, take care of things at home, or get along with other people? -> Very difficult Encounter Status:Closed by PODLOGARAUGUSTINA CNP on 11/07/17 PROGRESS Observed: 11/05/2017 Status: COMPLETED Source: [place] 10:10 AM [facility] [place] REPOSITORY O ID: [id number] Author: Charissa Manriquez LPN Service: (none) Author Type: (none) Type: Progress Notes Filed: 11/05/2017 10:21 AM Note Text: Manual Readin/62 Pulse: 80 Reason for blood pressure check - Last BP elevated, Blood pressure was 184/102 at office visit on 10/22/17. No medication changes. Patient is: Taking medication as prescribed Yes Took medication today Yes If no, date medication last taken na Experiencing side effects No Pt denies caffeine use. Pt is a daily smoker. Pt denies chest pain, SOB or headaches. Experiences occasional dizziness when standing up too quickly. Pt is alert AND oriented. Pt was seen at [facility] ER 10/25/17 after a fall. She was Dx'd with a bruised bone per pt. Has pain in right hip AND down to below knee. She was prescribed percocet, toradol AND cyclobenzapine at ER. Pt finished these meds AND is asking for a refill for all three. Pt was instructed to schedule an ER follow up, she will do this on her way out. She is scheduled for tomorrow 11/06/17 with FIRE TRUCK DRIVER Podlogar. Pt has been identified by name and birthdate: Yes Allergies reviewed: Yes Latex allergy: no. Medication - prescribed and OTC reviewed and updated: Yes Do you need any prescription refills prior to your next visit: Yes Health Maintenance: Reviewed and not up to date and provider notified Pt advised she will be notified after review by provider. Charissa Manriquez LPN CNNURSE Observed: 11/05/2017 Status: COMPLETED Source: [place] 9:15 AM [facility] REPOSITORY [facility] COLLETTE KELLY ([id number]) 1970 F TRN Date Time Provider Department 11/05/17 9:15 AM ID NURSE [facility] During your visit today, we recorded the following information about you: Pulse Blood pressure 80/minute 132/62 Charissa Manriquez LPN 11/05/2017 10:21 AM Signed Manual Readin/62 Pulse: 80 Reason for blood pressure check - Last BP elevated, Blood pressure was 184/102 at office visit on 10/22/17. No medication changes. Patient is: Taking medication as prescribed Yes Took medication today Yes If no, date medication last taken na Experiencing side effects No Pt denies caffeine use. Pt is a daily smoker. Pt denies chest pain, SOB or headaches. Experiences occasional dizziness when standing up too quickly. Pt is alert AND oriented. Pt was seen at [facility] ER 10/25/17 after a fall. She was Dx'd with a bruised bone per pt. Has pain in right hip AND down to below knee. She was prescribed percocet, toradol AND cyclobenzapine at ER. Pt finished these meds AND is asking for a refill for all three. Pt was instructed to schedule an ER follow up, she will do this on her way out. She is scheduled for tomorrow 11/06/17 with FIRE TRUCK DRIVER Podlogar. Pt has been identified by name and birthdate: Yes Allergies reviewed: Yes Latex allergy: no. Medication - prescribed and OTC reviewed and updated: Yes Do you need any prescription refills prior to your next visit: Yes Health Maintenance: Reviewed and not up to date and provider notified Pt advised she will be notified after review by provider. Charissa Manriquez LPN Referring Provider: KANNAN GAMBLE) [[id number]] Allergies As of Date: 11/05/2017 Noted Allergy Reaction AUGMENTIN (AMOXICILLIN-POT CLAVUL*07/22/2017 11 - Vomiting BACTRIM (SULFAMETHOXAZOLE-TRIMETH*07/22/2017 14 - Other: See Comments Comments: Chest pain BUSPAR (BUSPIRONE HCL) 10/22/2017 14 - Other: See Comments Comments: Night terrors LASIX (FUROSEMIDE) 07/22/2017 7 - Swelling Date Reviewed: 11/05/2017 Reviewed by: Charissa Manriquez LPN - Fully Assessed Reason for Visit: Blood Pressure Check [195] Visit Diagnosis:Hypertension, essential [I10] Prescriptions as of 11/05/2017 Sig: DEPO-MEDROL INJECTION by INJECTION(UNSPECIFIED PARE* CLONIDINE HCL 0.1 MG TABLET 1 tablet four times daily. AMLODIPINE 10 MG TABLET 1 tablet once daily. SERTRALINE 50 MG TABLET Take 1 tablet by mouth once d* INSULIN ASPART U-100 100 UNI* Inject subcutaneously three t* LANTUS U-100 INSULIN SUBCUTAN* Inject 7 Units subcutaneously* DOCUSATE SODIUM 100 MG CAPSULE Take 100 mg by mouth once kailash* CALCIUM ACETATE 667 MG CAPSULE [employer] RX 1 MG-60 MG-300 MCG* OXYCODONE-ACETAMINOPHEN 10 MG* Take 1 tablet by mouth every * KETOROLAC 10 MG TABLET Take 10 mg by mouth every 6 h* CYCLOBENZAPRINE ORAL Take 5 mg by mouth three time* ALPRAZOLAM 0.25 MG TABLET Problem List As Of Date 11/05/2017 Noted Resolved ESRD (end stage renal disease) ([facility]) [N18.6] INVALID FOR* More... Encounter Status:Closed by CHARISSA MANRIQUEZ LPN on 11/05/17 FEMUR RT 2+ VIEWS Observed: 10/27/2017 Status: F Source: [place] 8:05 PM [place] [address] Patient: COLLETTE KELLY Phone#: : [phone] Age: 46 Gender: F Pt. Type: ER Account: [id number] Location: 052 Ordering: SELENE ALEMAN Exam Date: 10/27/2017/19:50 Family Phys: JAROCHO BARROW Charge Code: 555339 Physician: Beadle Order #: [id number] DLP Dose#: PROCEDURE: X-RAY FEMUR RT MIN 2 VIEWS COMPARISON: None. INDICATIONS: Trauma FINDINGS: BONES: Normal. No significant arthropathy or acute abnormality. SOFT TISSUES: Negative. No visible soft tissue swelling. There is calcified atherosclerotic disease EFFUSION: None visible. OTHER: Negative. CONCLUSION: 1. No visible fracture or dislocation. 2. Calcified atherosclerotic disease greater than would be expected for the patient's age. Dictated by: Adin Ryan MD on 10/28/2017 at 8:29 Approved by: Adin Ryan MD on 10/28/2017 at 8:29 CNCO Observed: 10/24/2017 Status: COMPLETED Source: [place] 12:00 AM [facility] REPOSITORY Letter Text Kidney and Pancreas Transplant Program Pre-Transplant Office [address] [place] [address] , ext. [phone] October 24, 2017 Dear Mrs. Collette Kelly, Thank you for choosing [facility] for your transplant care. Please see the attached schedule for your kidney evaluation. Please ensure that you arrive on time. Patients arriving more than 30 minutes after scheduled time, will be turned away and will need to be rescheduled at a later date. The information marked below will need to be submitted to our pre-transplant office as soon as possible. Please note that the requested testing should be current - within the past 12 months. Please have all of the marked items faxed to our office at [phone]. __X___ Mammogram - all females age 40 and older Also, if you have had any of the following tests within the past 12 months, please forward the results to our office as soon as possible. EKG Chest X-Ray Echocardiogram Cardiac Stress Test CT of the Abdomen and Pelvis During your evaluation, you will see the following transplant team members: Barometers Calibrator Transplant Physician(s) Transplant Surgeon Oil Field Rig Builder Sap Portal Architect Asphalt Spreader We request that you bring the following with you to your evaluation appointments: - a list of your current medications - your insurance cards - a family member or close friend that acts as a support person/caregiver - a snack or lunch as there may not be an opportunity to go to the cafe - any medication that you may need to take throughout the day At the end of your evaluation appointments, it may be determined that you need additional testing or further consultations. All testing and consults requested by the transplant team will need to be scheduled at a [facility] or [facility]. Please be advised that we cannot make a determination regarding placing you on the [facility] and [facility]) transplant waiting list until your evaluation and testing are complete. If you are unable to keep any of your scheduled appointments, please give us at least 48 hours notice so that we may attempt to accommodate other patient appointments. Failure to notify us of the need to cancel appointments may result in a delay in rescheduling your evaluation. Please contact us at [phone] or toll-free at , ext. [phone] if you have any questions or if you need to cancel and reschedule your upcoming evaluation appointments. Again, thank you for choosing [facility] for your transplant care. We look forward to assisting you through the kidney transplant evaluation process. Sincerely, [facility] PROGRESS Observed: 10/22/2017 Status: COMPLETED Source: [place] 3:46 PM [facility] REPOSITORY HNO ID: [id number] Author: Kannan Narayanan) Tye Service: (none) Author Type: Physician Type: Progress Notes Filed: 10/22/2017 8:12 PM Note Text: Chief Complaint Patient presents with: Sleep Problem HPI Collette Kelly is a 46 year old female who presents here today for Above Complaints. PCP is Dr. Barrow in [place], but is looking for new PCP. Accompanied today by and family friend. Patient was in the ED on Friday for complaint of insomnia and was started on Lunesta 3mg nightly. Has not helped at all with sleep. States that she has history of anxiety and when she tries to go to sleep she feels like her body has a lot of tension in her muscles, panic symptoms, and feels anxious. Has tried her Xanax at night to help with sleep, but has not helped either. Has also been on vistaril which she says didn't work for her. states that she has had worsening symptoms since her dialysis started. Anxiety: admits to excessive worrying, racing thoughts, irritability, agitation, panic symptoms. Has been on Celexa in the past which did not work well for her. Noted patient's BP significantly elevated today which she states is actually good for her. Seeing Dr. Prieto for history of ESRD on peritoneal dialysis secondary to DM and abx for cellulitis since March and they are managing with prescribed medications and dialysis. Gets dialysis on a nightly basis and follows up with dialysis nurse monthly. Last seen today, but no changes to regimen. Past medical history, appointments, medications, allergies reviewed. Previous Medical History PAST MEDICAL HISTORY Diagnosis Date - Diabetes mellitus (HCC) - ESRD (end stage renal disease) on dialysis ([facility]) 03/2017 Dr. Prieto Previous Surgical History No past surgical history on file. Family History No family history on file. Patient Allergies ALLERGIES Allergen Reactions - Augmentin [Amoxicil* Vomiting - Bactrim [Sulfametho* Other: See Comments Chest pain - Lasix [Furosemide] Swelling Current Medications Current Outpatient Prescriptions on File Prior to Visit: insulin aspart U-100 (NOVOLOG FLEXPEN U-100 INSULIN) 100 unit/mL inpn Inject subcutaneously three times daily with meals. sliding scale insulin glargine,hum.rec.anlog (LANTUS U-100 INSULIN SUBCUTANEOUS) Inject 7 Units subcutaneously daily at bedtime. docusate sodium (COLACE) 100 mg capsule Take 100 mg by mouth once daily. ALPRAZolam (XANAX) 0.25 mg tablet amLODIPine (NORVASC) 10 mg tablet calcium acetate (PHOSLO) 667 mg capsule citalopram (CELEXA) 40 mg tablet cloNIDine HCl (CATAPRES) 0.1 mg tablet [employer] RX tablet No current facility-administered medications on file prior to visit. Social History Social History Marital status: Spouse name: Years of education: Number of children: Social History Main Topics Smoking status: Current Every Day Smoker Packs/day: 0.00 Years: 0.00 Smokeless tobacco: Never Used Alcohol use: No Review of Symptoms REVIEW OF SYSTEMS GENERAL: No weight loss, malaise or fevers RESPIRATORY: Negative for cough, hemoptysis, wheezing, COPD, dyspnea or shortness of breath CARDIOVASCULAR: Negative for chest pain, leg swelling, hypertension, CHF or palpitations GI: No nausea, vomiting, or diarrhea PSYCH: See HPI EXAM: BP 184/102 Pulse 84 Resp 14 Wt 86.6 kg (191 lb) BMI 29.91 kg/m? General Appearance: Well appearing, alert, in no acute distress, well-hydrated, well nourished.. Skin: Skin color, texture, turgor normal, no suspicious rashes or lesions. Lungs: Lungs clear to auscultation. No wheezing, rhonchi, rales. Heart: RRR without murmur, gallop, or rubs. No ectopy. Health Maintenance List HBA1C due on 11/14/1976 URINE ALBUMIN:CREATININE RATIO due on 11/14/1981 DILATED RETINAL EXAM due on 11/14/1981 DIABETIC FOOT EXAM due on 11/14/1981 LDL CHOLESTEROL due on 11/14/1989 ANNUAL PCP TEAM CHRONIC DISEASE VISIT due on 11/14/1989 BP CONTROLLED (<130/80) due on 11/14/1989 DTAP,TDAP,TD(1 - Tdap) due on 11/14/1990 PAP EVERY 5 YEARS due on 11/14/2001 HPV EVERY 5 YEARS due on 11/14/2001 MAMMOGRAM due on 2011 INFLUENZA(1) due on 10/18/2017 SERUM CREATININE due on 07/22/2018 HEMOGLOBIN/HEMATOCRIT due on 07/22/2018 ASSESSMENT/PLAN: 1. CRISTY (generalized anxiety disorder) - ICD9: 300.02, ICD10: F41.1 (primary diagnosis) Start SSRI for anxiety symptoms. Will recheck in 4-6 weeks to see if symptoms improved. To call with side effects. Requesting refill on xanax, but just had it filled on 10/15 by PCP. Did not bring bottle of Xanax with her today, though had all other medications. - SERTRALINE 50 MG TABLET 2. Chronic insomnia - ICD9: 780.52, ICD10: F51.04 Advised continued use of lunesta or xanax at night, not both. May try melatonin OTC as well for symptoms. 3. Hypertensive urgency - ICD9: 401.9, ICD10: I16.0 - poor control Denies symptoms of hypertensive emergency. Discussed red flag symptoms which she should be seen in the ED for. Needs to discuss BP control with nephrology as she may require more fluid taken off during dialysis or change to regimen. 4. ESRD (end stage renal disease) (HCC) - ICD9: 585.6, ICD10: N18.6 See above. Kannan Gamble MD CNOV Observed: 10/22/2017 Status: COMPLETED Source: [place] 3:40 PM [facility] REPOSITORY Office Visit (FAMPWS) COLLETTE KELLY ([id number]) 1970 F TRN Date Time Provider Department 10/22/17 3:40 PM KANNAN GAMBLE) FAMPWS During your visit today, we recorded the following information about you: Pulse Respiration Blood pressure Weight 84/minute 14/minute 184/102 86.6 kg Kannan Gamble MD 10/22/2017 8:12 PM Signed Chief Complaint Patient presents with: Sleep Problem HPI Collette Kelly is a 46 year old female who presents here today for Above Complaints. PCP is Dr. Barrow in [place], but is looking for new PCP. Accompanied today by and family friend. Patient was in the ED on Friday for complaint of insomnia and was started on Lunesta 3mg nightly. Has not helped at all with sleep. States that she has history of anxiety and when she tries to go to sleep she feels like her body has a lot of tension in her muscles, panic symptoms, and feels anxious. Has tried her Xanax at night to help with sleep, but has not helped either. Has also been on vistaril which she says didn't work for her. states that she has had worsening symptoms since her dialysis started. Anxiety: admits to excessive worrying, racing thoughts, irritability, agitation, panic symptoms. Has been on Celexa in the past which did not work well for her. Noted patient's BP significantly elevated today which she states is actually good for her. Seeing Dr. Prieto for history of ESRD on peritoneal dialysis secondary to DM and abx for cellulitis since March and they are managing with prescribed medications and dialysis. Gets dialysis on a nightly basis and follows up with dialysis nurse monthly. Last seen today, but no changes to regimen. Past medical history, appointments, medications, allergies reviewed. Previous Medical History PAST MEDICAL HISTORY Diagnosis Date - Diabetes mellitus (HCC) - ESRD (end stage renal disease) on dialysis ([facility]) 03/2017 Dr. Prieto Previous Surgical History No past surgical history on file. Family History No family history on file. Patient Allergies ALLERGIES Allergen Reactions - Augmentin [Amoxicil* Vomiting - Bactrim [Sulfametho* Other: See Comments Chest pain - Lasix [Furosemide] Swelling Current Medications Current Outpatient Prescriptions on File Prior to Visit: insulin aspart U-100 (NOVOLOG FLEXPEN U-100 INSULIN) 100 unit/mL inpn Inject subcutaneously three times daily with meals. sliding scale insulin glargine,hum.rec.anlog (LANTUS U-100 INSULIN SUBCUTANEOUS) Inject 7 Units subcutaneously daily at bedtime. docusate sodium (COLACE) 100 mg capsule Take 100 mg by mouth once daily. ALPRAZolam (XANAX) 0.25 mg tablet amLODIPine (NORVASC) 10 mg tablet calcium acetate (PHOSLO) 667 mg capsule citalopram (CELEXA) 40 mg tablet cloNIDine HCl (CATAPRES) 0.1 mg tablet [employer] RX tablet No current facility-administered medications on file prior to visit. Social History Social History Marital status: Spouse name: Years of education: Number of children: Social History Main Topics Smoking status: Current Every Day Smoker Packs/day: 0.00 Years: 0.00 Smokeless tobacco: Never Used Alcohol use: No Review of Symptoms REVIEW OF SYSTEMS GENERAL: No weight loss, malaise or fevers RESPIRATORY: Negative for cough, hemoptysis, wheezing, COPD, dyspnea or shortness of breath CARDIOVASCULAR: Negative for chest pain, leg swelling, hypertension, CHF or palpitations GI: No nausea, vomiting, or diarrhea PSYCH: See HPI EXAM: BP 184/102 Pulse 84 Resp 14 Wt 86.6 kg (191 lb) BMI 29.91 kg/m? General Appearance: Well appearing, alert, in no acute distress, well-hydrated, well nourished.. Skin: Skin color, texture, turgor normal, no suspicious rashes or lesions. Lungs: Lungs clear to auscultation. No wheezing, rhonchi, rales. Heart: RRR without murmur, gallop, or rubs. No ectopy. Health Maintenance List HBA1C due on 11/14/1976 URINE ALBUMIN:CREATININE RATIO due on 11/14/1981 DILATED RETINAL EXAM due on 11/14/1981 DIABETIC FOOT EXAM due on 11/14/1981 LDL CHOLESTEROL due on 11/14/1989 ANNUAL PCP TEAM CHRONIC DISEASE VISIT due on 11/14/1989 BP CONTROLLED (<130/80) due on 11/14/1989 DTAP,TDAP,TD(1 - Tdap) due on 11/14/1990 PAP EVERY 5 YEARS due on 11/14/2001 HPV EVERY 5 YEARS due on 11/14/2001 MAMMOGRAM due on 2011 INFLUENZA(1) due on 10/18/2017 SERUM CREATININE due on 07/22/2018 HEMOGLOBIN/HEMATOCRIT due on 07/22/2018 ASSESSMENT/PLAN: 1. CRISTY (generalized anxiety disorder) - ICD9: 300.02, ICD10: F41.1 (primary diagnosis) Start SSRI for anxiety symptoms. Will recheck in 4-6 weeks to see if symptoms improved. To call with side effects. Requesting refill on xanax, but just had it filled on 10/15 by PCP. Did not bring bottle of Xanax with her today, though had all other medications. - SERTRALINE 50 MG TABLET 2. Chronic insomnia - ICD9: 780.52, ICD10: F51.04 Advised continued use of lunesta or xanax at night, not both. May try melatonin OTC as well for symptoms. 3. Hypertensive urgency - ICD9: 401.9, ICD10: I16.0 - poor control Denies symptoms of hypertensive emergency. Discussed red flag symptoms which she should be seen in the ED for. Needs to discuss BP control with nephrology as she may require more fluid taken off during dialysis or change to regimen. 4. ESRD (end stage renal disease) (HCC) - ICD9: 585.6, ICD10: N18.6 See above. Kannan Gamble MD Referring Provider: JAROCHO BARROW [[id number]] Allergies As of Date: 10/22/2017 Noted Allergy Reaction AUGMENTIN (AMOXICILLIN-POT CLAVUL*07/22/2017 11 - Vomiting BACTRIM (SULFAMETHOXAZOLE-TRIMETH*07/22/2017 14 - Other: See Comments Comments: Chest pain BUSPAR (BUSPIRONE HCL) 10/22/2017 14 - Other: See Comments Comments: Night terrors LASIX (FUROSEMIDE) 07/22/2017 7 - Swelling Date Reviewed: 10/22/2017 Reviewed by: Vanesa Gross Ma - Fully Assessed Reason for Visit: Sleep Problem [100] Primary Visit Diagnosis:CRISTY (generalized anxiety disorder) [F41.1] Other Visit Diagnoses:Chronic insomnia [F51.04] Hypertensive urgency [I16.0] ESRD (end stage renal disease) ([facility]) [N18.6] Order(s):cloNIDine HCl (CATAPRES) 0.1 mg tablet1 tablet four times daily.Disp: Rfl: amLODIPine (NORVASC) 10 mg tablet1 tablet once daily.Disp: Rfl: sertraline (ZOLOFT) 50 mg tabletTake 1 tablet by mouth once daily.Disp: 30 tabletRfl: 1 Prescriptions as of 10/22/2017 Sig: DEPO-MEDROL INJECTION by INJECTION(UNSPECIFIED PARE* CLONIDINE HCL 0.1 MG TABLET 1 tablet four times daily. AMLODIPINE 10 MG TABLET 1 tablet once daily. INSULIN ASPART U-100 100 UNI* Inject subcutaneously three t* LANTUS U-100 INSULIN SUBCUTAN* Inject 7 Units subcutaneously* DOCUSATE SODIUM 100 MG CAPSULE Take 100 mg by mouth once kailash* ALPRAZOLAM 0.25 MG TABLET CALCIUM ACETATE 667 MG CAPSULE [employer] RX 1 MG-60 MG-300 MCG* SERTRALINE 50 MG TABLET Take 1 tablet by mouth once d* Problem List As Of Date 10/22/2017 Noted Resolved ESRD (end stage renal disease) ([facility]) [N18.6] INVALID FOR* More... Prescriptions ordered this encounter Disp Refills Start End CLONIDINE HCL 0.1 MG TABLET 10/22/2017 Class: Med Update Si tablet four times daily. AMLODIPINE 10 MG TABLET 10/22/2017 Class: Med Update Si tablet once daily. SERTRALINE 50 MG TABLET 30 t* 1 10/22/2017 Route: ORAL Sig: Take 1 tablet by mouth once daily. Medications Discontinued During This Encounter cloNIDine HCl (CATAPRES) 0.1 mg tabl* 07/15/2017 10/22/2017 Class: Historical Med Sig: Disc: Reason for discontinue is not on file. amLODIPine (NORVASC) 10 mg tablet 06/25/2017 10/22/2017 Class: Historical Med Sig: Disc: Reason for discontinue is not on file. citalopram (CELEXA) 40 mg tablet 06/27/2017 10/22/2017 Class: Historical Med Sig: Disc: Reason for discontinue is not on file. Follow-up and Disposition History Recorded Encounter Status:Closed by KANNAN GAMBLE MD on 10/22/17 EMERGENCY REPORT Observed: 10/21/2017 Status: F [facility] RE[facility] NAME ACCOUNT SEX AGE ADMIT DISCHARGE PT MED. RECORD# NUMBER DATE DATE TYPE COLLETTE KELLY [id number] F 46 10/20/17 3 [id number] ROOM: ER DATE OF : 1970 DICTATING PHYSICIAN: Gallito Nickerson CHIEF COMPLAINT: Recheck. HISTORY OF PRESENT ILLNESS: This is a 46-year-old female who I saw yesterday and asked to recheck today to have her potassium level drawn. She is end-stage renal disease patient on peritoneal dialysis that was seen and evaluated yesterday for insomnia and subsequently found an elevated potassium of 5.7. I went ahead and gave her Kayexalate and I also gave her Lunesta. She said she did sleep for several hours, which is fantastic for her. She has no complaints today and she actually looks significantly better than she did yesterday when she was sleep deprived. She says she feels a little bit more focused, a little bit more restful, and she actually drove herself here today where as yesterday she had be driven in because she was so tired. She denies any other current complaints that are new or different. PAST MEDICAL HISTORY: Chronic renal failure, high blood pressure. PAST SURGICAL HISTORY: See nursing notes. MEDICATIONS: See nursing notes. FAMILY HISTORY: Noncontributory. SOCIAL HISTORY: She denies alcohol or illicit drug abuse. REVIEW OF SYSTEMS: Ten systems reviewed and present above in the HPI. PHYSICAL EXAMINATION: Vital signs: Stable. Blood pressure is stable. General: She is awake and alert. GCS of 15. Head: Normocephalic and atraumatic. Heart rate and rhythm are regular without murmur, gallop, or rub. Lungs: Clear to auscultation bilaterally without wheeze, rales, or rhonchi. Abdomen: Soft. No reproducible tenderness, guarding, rebound, or rigidity. Skin: She has that persistent uremic conde. DIAGNOSTIC DATA: Recheck potassium is 5.2. EMERGENCY DEPARTMENT COURSE AND TREATMENT: I am comfortable with that potassium, and she looks significantly improved. DIAGNOSIS: Recheck elevated potassium. Page 1 of 2 COLLETTE KELLY Emergency Room Report PLAN/DISPOSITION: She is going to follow up with her family doctor on Friday. It is going to be a new family doctor, and they will discuss the potassium and monitor that, and we discussed reasons for ED return sooner. Dictated By: Gallito Nickerson DO 10/20/17 13:51 JOB #: [id number] Transcribed By: am 10/20/17 13:59 Electronically signed by: E-Sign: GALLITO NICKERSON MD 10/21/17 16:45 Page 2 of 2 COLLETTE KELLY Emergency Room Report EMERGENCY REPORT Observed: 10/21/2017 Status: F Source: [place] 4:50 PM [facility] RE[facility] NAME ACCOUNT SEX AGE ADMIT DISCHARGE PT MED. RECORD# NUMBER DATE DATE TYPE COLLETTE KELLY [id number] F 46 10/19/17 10/19/17 3 [id number] ROOM: ER DATE OF : 1970 DICTATING PHYSICIAN: Gallito Nickerson CHIEF COMPLAINT: Insomnia. HISTORY OF PRESENT ILLNESS: This is a 46-year-old female with end-stage renal disease on peritoneal dialysis that they are trying to get on a transplant list. She has multiple specialist including the [facility] and has peritoneal dialysis at home. She says that over the past several weeks she has had trouble sleeping. Her doctor gave her Xanax, which was not helping. She had spoke to her doctor yesterday on the phone, and the doctor said she would be willing to write her something when she is back in the office, but since it was the weekend she could not call it over the telephone. She said that the Xanax is not helping her and she is actually switching primary care physicians and has an appointment on Friday of this week. She believes she has been on Ambien in the past, which caused her to hallucinate. She is chronically ill, but and her state that everything else is at her baseline. She says that she has not slept at all in 5 days and she is beginning to hallucinate. She has no psychiatric history or any concerns that this is psychosis. No fevers, chills, new nausea, vomiting, diarrhea, chest pain, cough, or shortness of breath. PAST MEDICAL HISTORY: Chronic renal failure, peritoneal dialysis, elevated blood pressure. PAST SURGICAL HISTORY: See nursing notes. MEDICATIONS: See nursing notes. ALLERGIES: Augmentin. FAMILY HISTORY: Noncontributory. SOCIAL HISTORY: She denies alcohol, tobacco, or illicit drug abuse. PHYSICAL EXAMINATION: Vital signs: Blood pressure initially written on the chart, and upon manual examination, blood pressure is still slightly elevated. I personally gave the patient her amlodipine and her clonidine, which she had not already taken, heart rate was a little elevated. She did not want any IV fluids, and that she would increase her fluid intake, but has restrictions on that. She is chronically ill appearing, but not toxic. She is awake and alert. GCS of 15. No altered mental status. Full range of motion of the neck without any difficulty. Mucous membranes are moist. No intraoral lesions. Page 1 of 2 COLLETTE KELLY Emergency Room Report Posterior pharynx is without erythema, edema, or exudate bilaterally. TMs are without erythema, edema, or exudate bilaterally. Trachea is midline. Neck is supple. Heart rate and rhythm are regular without murmur, gallop, or rub. Lungs: Clear to auscultation bilaterally without wheeze, rales, or rhonchi. Abdomen: Soft. No signs of peritonitis or infection and catheter site looks good. No guarding, rebound, or rigidity. Skin: She has uremic conde, but no rashes, petechiae, or purpura. No lower extremity edema, calf tenderness, or swelling. DIAGNOSTIC DATA: I checked a CBC, CMP, urinalysis on her. She does have a slightly elevated potassium level, nonhemolyzed of 5.7. I will go ahead and give her 30 grams of Kayexalate p.o. EMERGENCY DEPARTMENT COURSE AND TREATMENT: I am comfortable that her doctor, after speaking with her yesterday, is going to be prescribing her either Ambien or Lunesta. DIAGNOSES: 1. Insomnia. 2. Chronic renal failure on peritoneal dialysis. 3. Hyperkalemia. PLAN/DISPOSITION: Since I am concerned about hallucinations, especially with Issa, I have wrote her for 10 Lunesta; anything further, she will need to follow up with her primary care physician, and also the 30 grams of Kayexalate, and because of her hyperkalemia and being a holiday weekend, I want her to recheck and reevaluate with me tomorrow in the emergency department and sooner for increasing worsening or new symptoms. The patient is otherwise discharged in baseline stable condition. Dictated By: Gallito Nickerson DO 10/19/17 13:20 JOB #: [id number] Transcribed By: am 10/20/17 09:33 Electronically signed by: E-Sign: GALLITO NICKERSON MD 10/21/17 16:45 Page 2 of 2 COLLETTE KELLY Emergency Room Report BMP WITH EGFR Collected: 10/20/2017 Status: F Source: [place] 12:[address] [facility] REPOSITORY TYPE CODE TESTS RESULT OUT OF RANGE REFERENCE UNITS LAB BMP with eGFR(LOINC) BMP with eGFR Result Comment: BASIC METABOLIC PANEL LAB SODIUM(LOINC) 136 - 145 mmol/l SODIUM Low 133 LAB POTASSIUM(LOINC) 3.5 - 5.1 mmol/L High POTASSIUM 5.2 LAB CHLORIDE(LOINC) 98 - 107 mmol/L CHLORIDE Low 94 LAB CO2(LOINC) 21.0 - mmol/L 31.0 CO2 21.6 LAB GLUCOSE(LOINC) 74 - 106 mg/dl GLUCOSE High 276 LAB BUN(LOINC) 6 - 20 mg/dl BUN High 82 LAB CREATININE(LOINC) 0.6 - 1.2 mg/dl High CREATININE 11.3 LAB CALCIUM(LOINC) 8.6 - mg/dl 10.2 CALCIUM Low 8.2 LAB ANION GAP(LOINC) 10 - 20 mmol/L ANION High GAP 23 LAB AGE(LOINC) years AGE 46 LAB eGFR(LOINC) 60 - 999 ML/MINUTE eGFR Low 4 LAB eGFR(AA)(LOINC) 60 - 999 ML/MINUTE eGFR(AA) Low 4 Result Comment: ACCORDING TO THE NATIONAL KIDNEY DISEASE EDUCATION PROGRAM(NKDE), A NORMAL eGFR IS A VALUE GREATER THAN OR EQUAL TO 60 ML/MIN/1.73 SQ METERS. CHRONIC KIDNEY DISEASE: <60mL/MIN/1.73 SQ METERS KIDNEY FAILURE: <15mL/MIN/1.73 SQ METERS THIS TEST SHOULD ONLY BE USED FOR PATIENTS 18 YEARS OF AGE AND OLDER. Performed By: #### [id number] #### [facility],[address] [place] [address] CBC Collected: 10/19/2017 Status: F Source: [place] 11:[address] [facility] REPOSITORY TYPE CODE TESTS RESULT OUT OF RANGE REFERENCE UNITS LAB CBC(LOINC) CBC Result Comment: CBC-COMPLETE BLOOD COUNT LAB WBC(LOINC) 4.5 - 10.8 x 10EE3/UL WBC High 11.6 LAB RBC(LOINC) 4.10 - x 10EE6/UL 5.30 RBC Low 2.68 LAB HEMOGLOBIN(LOINC 12.0 - g/dl ) 16.0 Low HEMOGLOBIN 8.4 LAB HEMATOCRIT(LOINC 34.0 - % ) 46.0 Low HEMATOCRIT 24.1 LAB MCV(LOINC) 80 - 99 fl MCV 90 LAB MCH(LOINC) 27 - 33 pg MCH 31 LAB MCHC(LOINC) 32 - 36 X10 3 MCHC 35 LAB RDW/CV(LOINC) 12.0 - % 15.6 RDW/CV 13.7 LAB PLATELET(LOINC) 150 - 450 x10EE3/UL PLATELET 230 LAB MPV(LOINC) 6.6 - 10.5 fl MPV 8.0 Result Comment: AUTOMATED DIFFERENTIAL LAB NEUT %(LOINC) 46.0 - 76.0 % NEUT % 75.8 LAB LYMPH %(LOINC) 20.0 - 45.0 % Low LYMPH % 15.7 LAB MONOS %(LOINC) 0.0 - 10.0 % MONOS % 6.6 LAB EO %(LOINC) 0.0 - 7.0 % EO % 1.4 LAB BASO %(LOINC) 0.0 - 2.0 % BASO % 0.5 LAB Lymph #(LOINC) 0.80 - 2.80 x10EE3/U L Lymph # 1.80 LAB Neut #(LOINC) 1.50 - 7.10 x10EE3/U L Neut # High 8.80 LAB Iron #(LOINC) 0.20 - 1.00 x10EE3/U L Iron # 0.80 LAB EO #(LOINC) 0.00 - 0.50 x10EE3/U L EO # 0.20 LAB Baso #(LOINC) 0.00 - 0.10 x10EE3/U L Baso # 0.10 LAB MANUAL DIFF(LOINC) MANUAL DIFF N/A LAB MORPHOLOGY(LOINC ) MORPHOLOGY N/A Result Comment: {CD] Performed By: #### [id number] #### [facility],[address] [place] [address] URINALYSIS Collected: 10/19/2017 Status: F Source: [facility] 11:40 [facility] REPOSITORY TYPE CODE TESTS RESULT OUT OF REFERENCE UNITS RANGE LAB URINALYSIS (LOINC) URINALYSIS Result Comment: URINALYSIS LAB Specimen Type(LOINC) Specimen Type R LAB Color(LOINC) NORMAL: YELLOW Color yellow LAB Clarity(LOINC) NORMAL: CLEAR Clarity clear LAB ph(LOINC) NORMAL: 5.0-8.0 ph 8 LAB Protein(LOINC) NORMAL: NEGATIVE Protein Abnormal 500 LAB Glucose(LOINC) NORMAL: NORMAL Glucose Abnormal 1000 LAB Ketone(LOINC) NORMAL: NEGATIVE Ketone NEG LAB Bilirubin(LOINC) NORMAL: NEGATIVE Bilirubin NEG LAB Blood(LOINC) NORMAL: NEGATIVE Blood Abnormal 150 LAB Urobilinog(LOINC) NORMAL: NORMAL Urobilinog NORM LAB Sp [place](LOINC) NORMAL: 1.010-1.030 Sp [place] 1.015 LAB Nitrite(LOINC) NORMAL: NEGATIVE Nitrite NEG LAB Leukocytes(LOINC) NORMAL: NEGATIVE Leukocytes NEG LAB Microscopic(LOINC ) Microscopic SEE BELOW Result Comment: MICROSCOPIC LAB Wbc(LOINC) 0-5/hpf Wbc 6-10 LAB Rbc(LOINC) 0-3/hpf Rbc 10-15 LAB Casts(LOINC) Casts NONE LAB Crystals(LOINC) Crystals NONE LAB Amorphous(LOINC) NONE Amorphous LAB Bacteria(LOINC) Bacteria 1+ LAB Epi Cells(LOINC) Epi Cells MODERATE LAB Mucous(LOINC) Mucous NONE LAB Yeast(LOINC) Yeast NONE Performed By: #### [id number] #### [facility],[address] [place] [address] CMP WITH EGFR Collected: 10/19/2017 Status: F Source: [facility] 11:40 [facility] REPOSITORY TYPE CODE TESTS RESULT OUT OF RANGE REFERENCE UNITS LAB CMP with eGFR(LOINC) CMP with eGFR Result Comment: COMPREHENSIVE METABOLIC PANEL LAB SODIUM(LOINC) 136 - 145 mmol/l SODIUM Low 133 LAB POTASSIUM(LOINC) 3.5 - 5.1 mmol/L High POTASSIUM 5.6 LAB CHLORIDE(LOINC) 98 - 107 mmol/L CHLORIDE Low 93 LAB CO2(LOINC) 21.0 - mmol/L 31.0 CO2 21.1 LAB GLUCOSE(LOINC) 74 - 106 mg/dl GLUCOSE High 245 LAB BUN(LOINC) 6 - 20 mg/dl BUN High 83 LAB CREATININE(LOINC) 0.6 - 1.2 mg/dl High CREATININE 11.5 LAB AST/SGOT(LOINC) 13 - 39 U/L AST/SGOT 21 LAB ALK PHOS(LOINC) 38 - 126 U/L ALK PHOS High 170 LAB CALCIUM(LOINC) 8.6 - mg/dl 10.2 CALCIUM 8.7 LAB TOTAL 6.4 - 8.3 g/dl PROTEIN(LOINC) TOTAL PROTEIN 6.8 LAB ALBUMIN(LOINC) 3.4 - 4.8 g/dL ALBUMIN Low 3.3 LAB GLOBULIN(LOINC) 1.5 - 3.8 G/DL GLOBULIN 3.5 LAB A/G RATIO(LOINC) 0.9 - 1.6 A/G RATIO 0.9 LAB TOTAL BILI(LOINC) 0.0 - 1.5 mg/dl TOTAL BILI 0.3 LAB B/C RATIO(LOINC) 0 - 30 ratio B/C RATIO 7 LAB ALT/SGPT(LOINC) 8 - 35 U/L ALT/SGPT High 43 LAB ANION GAP(LOINC) 10 - 20 mmol/L ANION High GAP 25 LAB AGE(LOINC) years AGE 46 LAB eGFR(LOINC) 60 - 999 ML/MINUTE eGFR Low 4 LAB eGFR(AA)(LOINC) 60 - 999 ML/MINUTE eGFR(AA) Low 4 Result Comment: ACCORDING TO THE NATIONAL KIDNEY DISEASE EDUCATION PROGRAM(NKDE), A NORMAL eGFR IS A VALUE GREATER THAN OR EQUAL TO 60 ML/MIN/1.73 SQ METERS. CHRONIC KIDNEY DISEASE: <60mL/MIN/1.73 SQ METERS KIDNEY FAILURE: <15mL/MIN/1.73 SQ METERS THIS TEST SHOULD ONLY BE USED FOR PATIENTS 18 YEARS OF AGE AND OLDER. Performed By: #### [id number] #### [place] [address] PROGRESS Observed: 09/24/2017 Status: COMPLETED Source: [place] 11:03 AM [facility] REPOSITORY HNO ID: [id number] Author: Prasad GomezRn) ABIGAIL Virgen Service: (none) Author Type: Registered Nurse Type: Progress Notes Filed: 09/24/2017 11:23 AM Note Text: Left voicemail for patient to bring with her the PAP and colonoscopy results she indicated were done two years ago with her to clinic appointment. Also advised her to quit smoking per transplant care path. New Referral Referring Physician Dr. Isaías Cai MD Organ Type kidney ESRD Yes. Cause: DM type 2/HTN Dialysis Dependant? Yes Name of Dialysis Facility: [place], [place] Diabetes Yes. Diagnosed at age 21, Type 2, Therapies: Insulin Injections, Hypoglycemia: No and Unawareness: No Current BMI 26.3 Previous Transplant No Date of Last Transplant N/A Currently Listed? No. Facility: N/A Willing to accept blood transfusion? Yes Potential Living Donor? No Full transplant evaluation? Yes Nephrology Screen Required? No If yes to nephrology screen, reason: N/A Prasad Virgen RN Pre-Kidney AND Pancreas Barometers Calibrator [facility] HGB A1C Collected: 09/18/2017 Status: F Source: [facility] 11:[address] [facility] REPOSITORY TYPE CODE TESTS RESULT OUT OF RANGE REFERENCE UNITS LAB HGB 4.4 - 6.4 % A1C(LOINC) High HGB A1C 8.7 Result Comment: {HB] {A1] Performed By: #### [id number] #### [place] [id number] TSH Collected: 09/18/2017 Status: F Source: [facility] 11:[address] [facility] REPOSITORY TYPE CODE TESTS RESULT OUT OF RANGE REFERENCE UNITS LAB TSH(LOINC) 0.34 - 5.60 uIU/ml TSH 2.48 Performed By: #### [id number] #### [address] [address] PT ED Observed: 08/01/2017 Status: COMPLETED Source: [place] 4:30 PM [facility] REPOSITORY HNO ID: [id number] Author: Charissa GomezRn) ABIGAIL Chávez Service: (none) Author Type: Registered Nurse Type: Patient Education Filed: 08/01/2017 4:31 PM Note Text: PATIENT EDUCATION TOPIC: PROCEDURE / SURGERY: Post-op Teaching: Wound Care PATIENT NAME: Collette Kelly PATIENT LOCATION: [place] [id number]- READINESS TO LEARN COGNITIVE ABILITY: Alert and oriented MOTIVATION TO LEARN: Eager FAMILY SUPPORT: High - Very involved in pt care INSTRUCTION PROVIDED TO: Patient and family member PATIENT LEARNS BEST BY: Written Instruction - Hand-outs Verbal Instruction FACTORS AFFECTING LEARNING: None PHYSICAL LIMITATIONS AFFECTING LEARNING: None LEARNING RESPONSE DIAGNOSIS: ADULT: Lap insertion peritoneal catheter PATIENT/FAMILY RESPONSE: Information received as demonstrated by interest and questions METHOD OF INSTRUCTION: Written instruction - handouts Verbal instruction FOLLOW-UP PLAN: Follow up phone call. INSTRUCTIONAL AIDS USED: NA SUPPLEMENTAL MATERIAL PROVIDED TO PATIENT: None REFERRAL (RECOMMENDATION): None Electronically Signed By: Charissa Chávez RN ANES POST Observed: 08/01/2017 Status: COMPLETED Source: [place] 4:15 PM [facility] REPOSITORY [facility] ID: [id number] Author: Dick Moise Service: (none) Author Type: Anesthesiologist Type: Anesthesia PostOp Filed: 08/01/2017 4:16 PM Note Text: POST ANESTHESIA EVALUATION NOTE SERVICE DATE: 08/01/2017 SERVICE TIME: 1612 : 1970 Alert. Pain controlled. No nausea or SOB. Room air. VS reviewed. Vitals: 08/01/17 1106 08/01/17 1556 Temp: 37 ?C (98.6 ?F) 36.3 ?C (97.3 ?F) 08/01/17 1106 08/01/17 1556 08/01/17 1600 BP: 178/97 158/79 160/82 08/01/17 1106 08/01/17 1556 08/01/17 1600 Pulse: 91 80 78 08/01/17 1106 08/01/17 1556 08/01/17 1600 Resp: 18 14 14 08/01/17 1106 08/01/17 1556 08/01/17 1600 SpO2: 100% 98% 97% Validated Vital Signs: Yes POST ANES STATUS: No apparent anesthetic complications. The patient is appropriately hydrated with stable respiratory and cardiovascular status. Patient has safe and adequate airway control. The patient has appropriate pain relief and no significant post operative nausea or vomiting. The patient has achieved baseline mental status. Intra-Operative Events: No Significant Anesthesia Events Further assessment by Anesthesia Service: None Other Remarks: SIGNATURE: Adin Moise MD PATIENT NAME: Collette Kelly DATE: August 01, 2017 TIME: 4:15 PM PAGER/CONTACT #: ANES POST Observed: 08/01/2017 Status: COMPLETED Source: [place] 3:16 PM [facility] REPOSITORY HNO ID: [id number] Author: Darshan Cota Service: Anesthesiology Author Type: Anesthesiologist Type: Anesthesia PostOp Filed: 08/01/2017 3:16 PM Note Text: POST ANESTHESIA EVALUATION NOTE SERVICE DATE: 08/01/2017 SERVICE TIME: 1519 : 1970 Vitals: 08/01/17 1106 Temp: 37 ?C (98.6 ?F) 08/01/17 1106 BP: 178/97 08/01/17 1106 Pulse: 91 08/01/17 1106 Resp: 18 08/01/17 1106 SpO2: 100% Validated Vital Signs: Yes POST ANES STATUS: No apparent anesthetic complications. The patient is appropriately hydrated with stable respiratory and cardiovascular status. Patient has safe and adequate airway control. The patient has appropriate pain relief and no significant post operative nausea or vomiting. The patient has achieved baseline mental status. Intra-Operative Events: No Significant Anesthesia Events Further assessment by Anesthesia Service: None Other Remarks: SIGNATURE: Darshan Cota MD PATIENT NAME: Collette Kelly DATE: August 01, 2017 TIME: 3:16 PM PAGER/CONTACT #: [id number] BRIEF OP NOT Observed: 08/01/2017 Status: COMPLETED Source: [place] 2:54 PM [facility] REPOSITORY HNO ID: [id number] Author: Darrell Singh Service: General Surgery Author Type: Physician Type: Brief Op Note Filed: 08/01/2017 2:56 PM Note Text: BRIEF OPERATIVE / PROCEDURE NOTE LOG ID: [id number] SURGERY/PROCEDURE DATE: 08/01/2017 INCISION/PROCEDURE START TIME: 2:02 PM INCISION CLOSE/PROCEDURE END TIME: SURGEON(S)/PROCEDURALIST(S) AND MOTOR COACH DRIVER(S): Surgeon(s) and Role: * Darrell Singh - Primary * Juan (Res) MD Stefani - Resident - Assisting No Additional Staff SURGERY/PROCEDURE(S): laparoscopic PD catheter placement; lap omentopexy ANESTHESIA: General FINDINGS: excellent flush/return to gravity. ESTIMATED BLOOD LOSS: minimal. SPECIMENS: None COMPLICATIONS: None PRE-OP/PRE-PROCEDURE DIAGNOSIS: ESRD POST-OP/POST-PROCEDURE DIAGNOSIS: * No post-op diagnosis entered * same SIGNATURE: Darrell Singh MD PATIENT NAME: Collette Kelly DATE: August 01, 2017 TIME: 2:55 PM PAGER/CONTACT #: [id number] + ALL Collected: 08/01/2017 Status: F Source: [place] 11:16 AM [facility] REPOSITORY TYPE CODE TESTS RESULT OUT OF REFERENCE UNITS RANGE LAB VPH 7.32-7.42 pH 7.38 LAB VPC2 42-55 mm Hg pCO2 42 LAB VPO2 35-45 mm Hg pO2 High 48 LAB VBE mmol/L Base Excess 0 LAB VHC3 24-28 mmol/L Bicarbonate 25 LAB VC2C 25-29 mmol/L CO2 Content 26 LAB O2HBCX 60-85 % Oxyhemoglobin, Panfilo. 78 LAB CO <2.0 % High Carboxyhemoglobin,V 4.3 en LAB METHB 0.4-1.5 % Methemoglobin 0.6 LAB VTMP C Temperature, Body 37.0 LAB VPHTC 7.32-7.42 pH, Temp Corrected 7.38 LAB VPC2T mm Hg pCO2, Temp Correct 42 LAB VPO2T mm Hg pO2, Temp Corrected 48 LAB NAB 132-148 mmol/L Sodium,Whole Bld 135 LAB KWB 3.5-5.0 mmol/L Potassium, Whole Bld 4.8 LAB HGBB 11.5-15.5 g/dL Hemoglobin,Total,AC 11.9 L LAB HCTB 36.0-46.0 % Hematocrit, ACL 37 LAB IC 1.08-1.30 mmol/L Calcium, Ion, WB 1.15 LAB GLB 60-105 mg/dL Glucose,Whole Bld High 158 LAB LACT 0.5-2.2 mmol/L Lactate 1.0 Performed By: #### VALLBG #### [facility] [address] [place], [place] [address] PT ED Observed: 08/01/2017 Status: COMPLETED Source: [place] 10:41 AM [facility] REPOSITORY HNO ID: [id number] Author: Roz (Rn) ABIGAIL Booth Service: (none) Author Type: Registered Nurse Type: Patient Education Filed: 08/01/2017 10:42 AM Note Text: PRE OP LEARNING ASSESSMENT PROCEDURE/SURGERY: SURGERY: Laparoscopic peritoneal dialysis catheter READINESS TO LEARN COGNITIVE ABILITY: Alert and oriented MOTIVATION TO LEARN: Eager Interested FAMILY SUPPORT: High - Very involved in pt care PATIENT LEARNS BEST BY: Written Instruction - Hand-outs Verbal Instruction FACTORS AFFECTING LEARNING: None PHYSICAL LIMITATIONS AFFECTING LEARNING: None Electronically Signed By: Roz Booth RN In Department: [facility] OPERATIVE NO Observed: 08/01/2017 Status: COMPLETED Source: [place] 12:00 AM [facility] REPOSITORY HNO ID: [id number] Author: Darrell Singh Service: General Surgery Author Type: Physician Type: Operative Report Filed: 08/02/2017 9:36 AM Note Text: [place] [address] [place] OPERATIVE REPORT NAME: COLLETTE KELLY [facility] #: [id number] DATE: 08/01/2017 AGE: 46 SURGEON 1: Darrell Singh M.D. SURGEON 2: MOTOR COACH DRIVER 1: Juan Ko M.D. MOTOR COACH DRIVER 2: OPERATION: 1. Laparoscopic peritoneal dialysis catheter placement. 2. Laparoscopic omentopexy. ANESTHESIA: General endotracheal. PREOPERATIVE DIAGNOSIS: End-stage renal disease. POSTOPERATIVE DIAGNOSIS: End-stage renal disease. OPERATIVE INDICATIONS: The patient is a 46-year-old female with history of end- stage renal disease related to diabetes. She has been on hemodialysis and is miserable on this modality. She was referred to ms for peritoneal dialysis catheter placement. The risks, benefits, and alternatives of the procedure were discussed at length with the patient and she agreed to proceed in the operating room. OPERATIVE PROCEDURE: The patient was brought to the operating room in the supine position. General endotracheal anesthesia was induced and the patient's abdomen was prepped and draped in usual sterile fashion. Our planned tunneling and exit sites were marked out with the assistance of the catheter. Through a 5-mm incision in the right upper quadrant, the 0-degree scope and Endopath trocar were used to enter the abdomen under direct visualization and CO2 insufflation was begun. We then switched over to a 30-degree scope. A quick 360-degree view revealed no obvious abnormalities. The omentum clearly fell into the retrovesical space. A second 5-mm port was placed after needle localization. The omentum was grasped and placed into the left upper quadrant. Through a 2-mm stab incision, an omentopexy was created using the suture passer as well as an #0 Ethibond suture. At all times, we were cognizant as to the location of the underlying colon, which was not harmed during this aspect of the procedure. With the patient back in the steep reverse Trendelenburg position, the omentum no longer fell into the retrovesical space. The patient was flattened out once again. A transverse incision was made with the scalpel and the tissue was dissected down to the level of the anterior fascia, which was sharply incised. A 6 cm intramuscular tunnel was created using 7/8 VersaStep trocar. A Derek double- cuffed Curl catheter was placed over a stylet into the pelvis until the proximal cuff was visualized. The stylet and trocar were removed and the cuff was placed into our intramuscular tunnel. The catheter was brought through our planned exit site using the Patricia stylet. A titanium adapter was secured. A 2-0 Vicryl suture was used to reapproximate the fascia of our tunnel. The patient was placed back in the steep reverse Trendelenburg position and the CO2 insufflation was released. A 500 mL of saline flowed easily into the abdomen. There was excellent return to simple gravity drainage. The patient was flattened out. The CO2 insufflation was begun once again. The abdomen was carefully inspected and there were found to be no intra-abdominal abnormalities identified. There was no undue bleeding encountered. We were quite satisfied with positioning of our catheter. The trocars were removed under direct visualization without undue bleeding identified. The CO2 insufflation was released. The subcutaneous tissue and skin of all incisions were infiltrated with 0.25% Marcaine. The skin was closed using 4-0 Biosyn subcuticular closures followed by Exofin. The catheter was secured to a transfer set, flushed with heparinized saline, followed by Betadine cap. A dry sterile dressing was secured. At the end of the procedure, all sponge and needle counts were correct. The patient tolerated the procedure well and was dispensed to PACU in stable condition. I was present for this procedure in its entirety from incision at 2:02 until closure at 305. Darrell Singh M.D. SR:[id number] /[id number] cc: ECG COMPLETE W Observed: 07/22/2017 Status: F Source: [place] INTERPRETATION 1:06 PM [facility] REPOSITORY NAME : COLLETTE KELLY PID : [id number] : 1970 Gender : Female Race : ORD : [id number] Procedure Date : Jul 22 2017 13:06:46 Edit Date : Jul 28 2017 10:11:16 Diagnosis:NORMAL SINUS RHYTHM NORMAL ECG Confirmed by Darryl MERINO M.D. ([id number]) on 07/28/2017 10:04:37 AM Ventricular Rate : 86 BPM Atrial Rate : 86 BPM P-R Interval : 178 ms QRS Duration : 90 ms Q-T Interval : 398 ms QTC Calculation(Bezet) : 476 ms P Ketchum : 73 degrees R Ketchum : 6 degrees T Ketchum : 42 degrees Test Reason : Location : 119 : A17 Overread By : Darryl MERINO M.D. Edited By : Darryl MERINO M.D. Referred By : DARRELL SINGH Acquired by : ELOINA EDWARDS BLOOD TYPE Collected: 07/22/2017 Status: F Source: [place] 12:29 PM [facility] REPOSITORY TYPE CODE TESTS RESULT OUT OF REFERENCE UNITS RANGE LAB %ABR B ABO/RH(D) NEGATIVE Performed By: #### CONABO #### [facility] [address] [place], [place] [address] TYPE AND SCREEN Collected: 07/22/2017 Status: F Source: [place] 12:29 PM [facility] REPOSITORY TYPE CODE TESTS RESULT OUT OF REFERENCE UNITS RANGE LAB %ABR B ABO/RH(D) NEGATIVE LAB % Antibody NEG Screen Performed By: #### TSCR #### [facility] [address] [place], [place] [address] CBC Collected: 07/22/2017 Status: F Source: [place] 12:22 PM [facility] REPOSITORY TYPE CODE TESTS RESULT OUT OF REFERENCE UNITS RANGE LAB WBC 3.70-11.00 k/uL WBC 8.45 LAB RBC 3.90-5.20 m/uL RBC 4.20 LAB HGB 11.5-15.5 g/dL Hemoglobin 12.4 LAB HCT 36.0-46.0 % Hematocrit 38.0 LAB MCV 80.0-100.0 fL MCV 90.5 LAB MCH 26.0-34.0 pG MCH 29.5 LAB MCHC 30.5-36.0 g/dL MCHC 32.6 LAB RDWCV 11.5-15.0 % RDW-CV 14.3 LAB PLTCT 150-400 k/uL Platelet Count 222 LAB MPV 9.0-12.7 fL MPV 10.8 LAB ABSNUC <0.01 k/uL Absolute nRBC <0.01 Performed By: #### CBC, CMP #### [facility] [address] [place] [id number] COMP METABOLIC PANEL Collected: 07/22/2017 Status: F Source: [place] 12:22 PM [facility] REPOSITORY TYPE CODE TESTS RESULT OUT OF REFERENCE UNITS RANGE LAB TP 6.3-8.0 g/dL Protein, Total 7.3 LAB ALB 3.9-4.9 g/dL Low Albumin 3.7 LAB CA 8.5-10.2 mg/dL Low Calcium, Total 8.4 LAB TBIL 0.2-1.3 mg/dL Bilirubin, Total 0.2 LAB ALKP 32-117 U/L Alkaline High Phosphatase 128 LAB AST 13-35 U/L AST 24 LAB GLU 74-99 mg/dL Glucose High 508 Result Comment: The [place] [employer] (ADA) provides guidance for cutoff values for fasting glucose and random glucose. The ADA defines fasting as no caloric intake for at least 8 hours. Fas ting plasma glucose results between 100 to 125 mg/dL indicate increased risk for diabetes (prediabetes). Fasting plasma glucose results greater than or equal to 126 mg/dL meet the criteria for diagnosis of diabetes. In the absence of unequivocal hyperglycemia, results should be confirmed by repeat testing. In a patient with classic symptoms of hyperglycemia or hyperglycemic crisis, random plasma glucose results greater than or equal to 200 mg/dL meet the criteria for diagnosis of diabetes. Reference: Standards of Medical Care in Diabetes 2016, [place] [employer]. Diabetes Care. 2016.39(Suppl 1). Called to and read back by: Melania Dsouza [facility] Main A100 07/22/2017 1626 CTom LAB BUN 7-21 mg/dL BUN High 37 LAB CRET 0.58-0.96 mg/dL Creatinine High 5.03 LAB NA 136-144 mmol/L Low Sodium 134 LAB K 3.7-5.1 mmol/L Potassium 4.5 LAB CL 97-105 mmol/L Low Chloride 89 LAB CO2 22-30 mmol/L CO2 29 LAB AGAP 9-18 mmol/L Anion Gap 16 LAB ALT 7-38 U/L ALT 30 LAB GFRAA eGFR- Amer. 11 LAB GFRNAA . eGFR-All Other Races 9 Result Comment: eGFR (Estimated GFR) Units of measure: mL/min/1.73 meters squared eGFR is derived from the reexpressed MDRD Study equation using the following parameters: serum creatinine, age, gender and race. The creatinine assay has been calibrated to be traceable to IDMS. An eGFR <60 mL/min/1.73m2 for >3 months is consistent with chronic kidney disease. Refer to KDOQI guidelines for clinical interpretation. In patients with unstable renal function, e.g. those with acute kidney injury, the eGFR may not accurately reflect actual GFR. Performed By: #### CBC, CMP #### [facility] [address] [place], [place] [address] PROGRESS Observed: 07/22/2017 Status: COMPLETED Source: [place] 12:04 PM [facility] REPOSITORY HNO ID: [id number] Author: Adin (Rn) ABIGAIL Alfonso Service: (none) Author Type: Registered Nurse Type: Progress Notes Filed: 07/22/2017 2:19 PM Note Text: AMBULATORY PATIENT EDUCATION NOTE TOPIC: SURVIVAL SKILLS: Safety Precautions READINESS TO LEARN COGNITIVE ABILITY: Alert and oriented MOTIVATION TO LEARN: Eager Interested FAMILY SUPPORT: High - Very involved in pt care INSTRUCTION PROVIDED TO: Patient and family member PATIENT LEARNS BEST BY: Multiple Methods FACTORS AFFECTING LEARNING: None PHYSICAL LIMITATIONS AFFECTING LEARNING: None LEARNING RESPONSE DIAGNOSIS: ESRD METHOD OF INSTRUCTION: Individual instruction Written instruction - handouts Verbal instruction Demonstration-Hands on Learning PATIENT / FAMILY RESPONSE: Verbalizes understanding of: PATIENT SAFETY PRINCIPLES FOLLOW-UP PLAN: Complete - No need for follow-up SUPPLEMENTAL MATERIAL: Your Surgical Guide REFERRAL (RECOMMENDATION): None Electronically Signed By: Adin Alfonso RN In Department: GENERAL SURGERY HISTORY PHYSICAL Observed: 07/22/2017 Status: COMPLETED Source: [place] 11:40 AM [facility] [place] REPOSITORY HNO ID: [id number] Author: Darrell Singh Service: (none) Author Type: Physician Type: HANDP Filed: 07/22/2017 2:19 PM Note Text: HISTORY AND PHYSICAL EXAMINATION SERVICE DATE: 07/22/2017 SERVICE TIME: 1130 PRIMARY CARE PHYSICIAN: Radha Willingham III, MD REASON FOR VISIT: Collette Kelly is a 46 year old female who is being seen for PD catheter The patient has the following: There is no problem list on file for this patient. SUBJECTIVE CHIEF COMPLAINT: ESRD HPI: see dictated note No past medical history on file. No past surgical history on file. No family history on file. SOCIAL HISTORY: Social History Substance Use Topics - Smoking status: Current Every Day Smoker - Smokeless tobacco: Never Used - Alcohol use No MEDICATIONS: Prior to Admission medications as of 07/22/17 1017 Medication Sig Last Dose Taking ALPRAZolam (XANAX) 0.25 mg tablet Taking Yes amLODIPine (NORVASC) 10 mg tablet Taking Yes amLODIPine (NORVASC) 5 mg tablet Taking Yes busPIRone (BUSPAR) 10 mg tablet Taking Yes calcium acetate (PHOSLO) 667 mg capsule Taking Yes citalopram (CELEXA) 40 mg tablet Taking Yes cloNIDine HCl (CATAPRES) 0.1 mg tablet Taking Yes VIRTUSSIN AC 10-100 mg/5 mL syrup Taking Yes [employer] RX tablet Taking Yes No medication comments found. CURRENT ALLERGIES: ALLERGIES Allergen Reactions - Augmentin [Amoxicil* Vomiting - Bactrim [Sulfametho* Other: See Comments Chest pain - Lasix [Furosemide] Swelling REVIEW OF SYSTEMS: PAIN ASSESSMENT: General: No weight loss, malaise or fevers. Neuro: n/a Respiratory: No history of current cough or dyspnea, or pneumonia in the past 6 weeks. No history of respiratory/pulmonary symptoms or problems Cardiovascular: Positive for: Hypertension GI: No history of GI symptoms or problems. No history of esophageal varices, recent ascites, or ETOH greater than 2 drinks per day. : Renal failure, Chronic FLOAT OPERATOR: Negative for abnormal vaginal bleeding, abnormal vaginal discharge., N/A : N/A Endocrine: Diabetes Mellitus on insulin Hematology: See HPI Oncology: No history of CA metastasis, chemo within 30 days, or radiotherapy within 90 days. Has not lost 10% of body wt in 6 months. No history of oncological symptoms or problems. Psych: No history of psychiatric symptoms or problems. Musculoskeletal: Negative for joint pain or swelling, back pain or muscle pain. Skin: Negative for lesions, rash and itching. PHYSICAL EXAM: VITALS: BP 179/90 Pulse 98 Temp (Src) 97.5 (Temporal Artery) Resp 12 Ht 5' 7 (1.70m) Wt 177 lb (80.3kg) BMI 27.72 kg/(m2). General: Alert and oriented Skin: Normal color, no rash, no lesions. HEENT: EOM, pupils equal, round and reactive. Cardiovascular: Normal S1 AND S2, no rubs, murmurs or gallops. No JVD. Pulse regular. Lungs: Normal breath sounds, no wheezes or crackles. Abdomen: Soft, non-tender, no rigidity. Extremities: No deformity, no edema or tenderness, no joint swelling or clubbing. Neurological: Normal cognition and motor skills. Pulses: Carotid and radial pulses normal +2. Diagnostic tests reviewed for today's visit: PENDING ASSESSMENT Medication and Non-Pharmacologic VTE Prophylaxis/Anticoagulants The Following Tests/Procedures Have Been Initiated: None Instructions Given to Patient: Patient given verbal and written preop instructions and voices comprehension and compliance. SIGNATURE: Darrell Singh MD PATIENT NAME: Collette Kelly DATE: July 22, 2017 TIME: 11:40 AM PAGER/CONTACT #: [email or web address] Observed: 07/22/2017 Status: COMPLETED Source: [place] 10:30 AM [facility] REPOSITORY Office Visit ([facility]) COLLETTE KELLY ([id number]) 1970 F Date Time Provider Department 07/22/17 10:30 AM DARRELL SINGH During your visit today, we recorded the following information about you: Temperature Pulse Respiration Blood pressure 97.5 degrees 98/minute 12/minute 179/90 Weight Height 80.3 kg 1.702 m Darrell Singh MD 07/22/2017 2:19 PM Signed see dictated note MD Ricardo Epps 07/22/2017 10:21 AM Signed What is the reason for your visit today? consult Who is your referring physician? Dr. Cai Are you having poor oral intake? NO Have you had unintentional weight loss of 15 lbs/7 Kg in the last 3-6 months? NO Bowels: constipated Wound: clean AND dry Temperature: No Drains: No Darrell Singh MD 07/22/2017 2:19 PM Signed HISTORY AND PHYSICAL EXAMINATION SERVICE DATE: 07/22/2017 SERVICE TIME: 1130 PRIMARY CARE PHYSICIAN: Radha Willingham III, MD REASON FOR VISIT: Collette Kelly is a 46 year old female who is being seen for PD catheter The patient has the following: There is no problem list on file for this patient. SUBJECTIVE CHIEF COMPLAINT: ESRD HPI: see dictated note No past medical history on file. No past surgical history on file. No family history on file. SOCIAL HISTORY: Social History Substance Use Topics - Smoking status: Current Every Day Smoker - Smokeless tobacco: Never Used - Alcohol use No MEDICATIONS: Prior to Admission medications as of 07/22/17 1017 Medication Sig Last Dose Taking ALPRAZolam (XANAX) 0.25 mg tablet Taking Yes amLODIPine (NORVASC) 10 mg tablet Taking Yes amLODIPine (NORVASC) 5 mg tablet Taking Yes busPIRone (BUSPAR) 10 mg tablet Taking Yes calcium acetate (PHOSLO) 667 mg capsule Taking Yes citalopram (CELEXA) 40 mg tablet Taking Yes cloNIDine HCl (CATAPRES) 0.1 mg tablet Taking Yes VIRTUSSIN AC 10-100 mg/5 mL syrup Taking Yes [employer] RX tablet Taking Yes No medication comments found. CURRENT ALLERGIES: ALLERGIES Allergen Reactions - Augmentin [Amoxicil* Vomiting - Bactrim [Sulfametho* Other: See Comments Chest pain - Lasix [Furosemide] Swelling REVIEW OF SYSTEMS: PAIN ASSESSMENT: General: No weight loss, malaise or fevers. Neuro: n/a Respiratory: No history of current cough or dyspnea, or pneumonia in the past 6 weeks. No history of respiratory/pulmonary symptoms or problems Cardiovascular: Positive for: Hypertension GI: No history of GI symptoms or problems. No history of esophageal varices, recent ascites, or ETOH greater than 2 drinks per day. : Renal failure, Chronic FLOAT OPERATOR: Negative for abnormal vaginal bleeding, abnormal vaginal discharge., N/A : N/A Endocrine: Diabetes Mellitus on insulin Hematology: See HPI Oncology: No history of CA metastasis, chemo within 30 days, or radiotherapy within 90 days. Has not lost 10% of body wt in 6 months. No history of oncological symptoms or problems. Psych: No history of psychiatric symptoms or problems. Musculoskeletal: Negative for joint pain or swelling, back pain or muscle pain. Skin: Negative for lesions, rash and itching. PHYSICAL EXAM: VITALS: BP 179/90 Pulse 98 Temp (Src) 97.5 (Temporal Artery) Resp 12 Ht 5' 7 (1.70m) Wt 177 lb (80.3kg) BMI 27.72 kg/(m2). General: Alert and oriented Skin: Normal color, no rash, no lesions. HEENT: EOM, pupils equal, round and reactive. Cardiovascular: Normal S1 AND S2, no rubs, murmurs or gallops. No JVD. Pulse regular. Lungs: Normal breath sounds, no wheezes or crackles. Abdomen: Soft, non-tender, no rigidity. Extremities: No deformity, no edema or tenderness, no joint swelling or clubbing. Neurological: Normal cognition and motor skills. Pulses: Carotid and radial pulses normal +2. Diagnostic tests reviewed for today's visit: PENDING ASSESSMENT Medication and Non-Pharmacologic VTE Prophylaxis/Anticoagulants The Following Tests/Procedures Have Been Initiated: None Instructions Given to Patient: Patient given verbal and written preop instructions and voices comprehension and compliance. SIGNATURE: Darrell Singh MD PATIENT NAME: Collette Kelly DATE: July 22, 2017 TIME: 11:40 AM PAGER/CONTACT #: Adin Alfonso RN, RN 07/22/2017 2:19 PM Signed AMBULATORY PATIENT EDUCATION NOTE TOPIC: SURVIVAL SKILLS: Safety Precautions READINESS TO LEARN COGNITIVE ABILITY: Alert and oriented MOTIVATION TO LEARN: Eager Interested FAMILY SUPPORT: High - Very involved in pt care INSTRUCTION PROVIDED TO: Patient and family member PATIENT LEARNS BEST BY: Multiple Methods FACTORS AFFECTING LEARNING: None PHYSICAL LIMITATIONS AFFECTING LEARNING: None LEARNING RESPONSE DIAGNOSIS: ESRD METHOD OF INSTRUCTION: Individual instruction Written instruction - handouts Verbal instruction Demonstration-Hands on Learning PATIENT / FAMILY RESPONSE: Verbalizes understanding of: PATIENT SAFETY PRINCIPLES FOLLOW-UP PLAN: Complete - No need for follow-up SUPPLEMENTAL MATERIAL: Your Surgical Guide REFERRAL (RECOMMENDATION): None Electronically Signed By: Adin Alfonso RN In Department: GENERAL SURGERY Referring Provider: ISAÍAS CAI [[id number]] Allergies As of Date: 07/22/2017 Noted Allergy Reaction AUGMENTIN (AMOXICILLIN-POT CLAVUL*07/22/2017 11 - Vomiting BACTRIM (SULFAMETHOXAZOLE-TRIMETH*07/22/2017 14 - Other: See Comments Comments: Chest pain LASIX (FUROSEMIDE) 07/22/2017 7 - Swelling Date Reviewed: 07/22/2017 Reviewed by: Ricardo Aleman - Fully Assessed Reason for Visit: Consult [173] Primary Visit Diagnosis:ESRD (end stage renal disease) ([facility]) [N18.6] Order(s):BASIC METABOLIC PNL [SQBMP] Order #: [id number] FUTURE CBC [SQCBC] Order #: [id number] FUTURE COMP METABOLIC PANEL [SQCMP] Order #: [id number] FUTURE TYPE + SCREEN,30 DAY [IMSPZQ36] Order #: [id number] FUTURE CONFIRM BLOOD TYPE [SQCONABO] Order #: [id number] FUTURE ECG COMPLETE W INTERPRETATION [ECG01] Order #: [id number] FUTURE SURGICAL REQUEST - ELECTIVE [[id number]] Order #: [id number]: 1 Prescriptions as of 07/22/2017 Sig: ALPRAZOLAM 0.25 MG TABLET AMLODIPINE 10 MG TABLET AMLODIPINE 5 MG TABLET BUSPIRONE 10 MG TABLET CALCIUM ACETATE 667 MG CAPSULE CITALOPRAM 40 MG TABLET CLONIDINE HCL 0.1 MG TABLET VIRTUSSIN AC 10 MG-100 MG/5 M* [employer] RX 1 MG-60 MG-300 MCG* Problem List As Of Date 07/22/2017 Noted Resolved ESRD (end stage renal disease) ([facility]) [N18.6] INVALID FOR* More... Visit Notes: >> Ricardo Oswald Jul 22, 2017 10:11 AM Status: Signed What is the reason for your visit today? consult Who is your referring physician? Dr. Cai Are you having poor oral intake? NO Have you had unintentional weight loss of 15 lbs/7 Kg in the last 3-6 months? NO Bowels: constipated Wound: clean AND dry Temperature: No Drains: No Follow-up and Disposition History Recorded Encounter Status:Closed by DARRELL SINGH MD on 07/22/17 PROGRESS Observed: 07/22/2017 Status: COMPLETED Source: [place] 12:00 AM [facility] REPOSITORY HNO ID: [id number] Author: Darrell Singh Service: General Surgery Author Type: Physician Type: Progress Notes Filed: 07/22/2017 3:01 PM Note Text: [facility] NOTE INDEPENDENCE NAME: COLLETTE KELLY CLINIC NO.: [id number] DATE OF SERVICE: 07/22/2017 Mrs. Kelly is a 46-year-old female who is referred by Dr. Cai for peritoneal dialysis catheter placement. The patient has a history of end-stage renal disease related to diabetes. She is presently on hemodialysis through a Derek catheter and is miserable on this modality. She discussed this with her oil pit attendant and was referred to me for peritoneal dialysis catheter placement. On examination, her abdomen is benign. She has a large amount of excess hanging skin related to approximately 70 pounds of planned weight loss. Indeed, I agree with Dr. Cai that Mrs. Kelly will be an excellent candidate for peritoneal dialysis. We will place this catheter laparoscopically utilizing the muscle tunneling and selective omentopexy technique. The risks, benefits, alternatives of the procedure were discussed at length with Mrs. Kelly and she agreed to proceed in the operating room. She has been scheduled for elective laparoscopic peritoneal dialysis catheter placement here at the [facility] on August 01, 2017. DICTATED BY: Alisa Hernandez/Caesar JOB# [id number] cc: Alisa Marin M.D. [facility] Observed: 07/22/2017 Status: COMPLETED Source: [place] 12:00 AM [facility] REPOSITORY Patient:Collette Kelly MRN: <[id number]> Height:5' 7.008(1.702 m) Weight:175 lb 0.7 oz (79.4 kg) Outpatient Medications as of 08/01/17: insulin aspart U-100 (NOVOLOG FLEXPEN U-100 INSULIN) 100 unit/mL inpn insulin glargine,hum.rec.anlog (LANTUS U-100 INSULIN SUBCUTANEOUS) docusate sodium (COLACE) 100 mg capsule ALPRAZolam (XANAX) 0.25 mg tablet amLODIPine (NORVASC) 10 mg tablet calcium acetate (PHOSLO) 667 mg capsule citalopram (CELEXA) 40 mg tablet cloNIDine HCl (CATAPRES) 0.1 mg tablet [employer] RX tablet Admission/Clinic Administered Medications as of 08/01/17: NaCl 0.9% iv infusion clindamycin 900 mg in D5W 50 mL (CLEOCIN) Problem List: ESRD (end stage renal disease) ([facility]) [N18.6] Allergies: Augmentin [Amoxicillin-Pot Clavulanate] Bactrim [Sulfamethoxazole-Trimethoprim] Lasix [Furosemide] Date Verified: 08/01/17 Lab Values Lab Value Units Date High Low POTA* 4.5 mmol/L 07/22/2017 5.1 3.7 DANIAL* 38.0 % 07/22/2017 46.0 36.0 Progress Notes ([facility]): Darrell Singh MD 07/22/2017 2:19 PM Signed see dictated note MD Darrell Epps MD 07/22/2017 3:01 PM Signed [facility] NOTE INDEPENDENCE NAME: COLLETTE KELLY CLINIC NO.: [id number] DATE OF SERVICE: 07/22/2017 Mrs. Kelly is a 46-year-old female who is referred by Dr. Cai for peritoneal dialysis catheter placement. The patient has a history of end-stage renal disease related to diabetes. She is presently on hemodialysis through a Derek catheter and is miserable on this modality. She discussed this with her oil pit attendant and was referred to me for peritoneal dialysis catheter placement. On examination, her abdomen is benign. She has a large amount of excess hanging skin related to approximately 70 pounds of planned weight loss. Indeed, I agree with Dr. Cai that Mrs. Kelly will be an excellent candidate for peritoneal dialysis. We will place this catheter laparoscopically utilizing the muscle tunneling and selective omentopexy technique. The risks, benefits, alternatives of the procedure were discussed at length with Mrs. Kelly and she agreed to proceed in the operating room. She has been scheduled for elective laparoscopic peritoneal dialysis catheter placement here at the [facility] on August 01, 2017. DICTATED BY: Alisa Hernandez/Caesar JOB# [id number] cc: Alisa Marin M.D. Jermaine Jackson 07/22/2017 10:21 AM Signed What is the reason for your visit today? consult Who is your referring physician? Dr. Cai Are you having poor oral intake? NO Have you had unintentional weight loss of 15 lbs/7 Kg in the last 3-6 months? NO Bowels: constipated Wound: clean AND dry Temperature: No Drains: No Darrell Singh MD 07/22/2017 2:19 PM Signed HISTORY AND PHYSICAL EXAMINATION SERVICE DATE: 07/22/2017 SERVICE TIME: 1130 PRIMARY CARE PHYSICIAN: Radha Willingham III, MD REASON FOR VISIT: Collette Kelly is a 46 year old female who is being seen for PD catheter The patient has the following: There is no problem list on file for this patient. SUBJECTIVE CHIEF COMPLAINT: ESRD HPI: see dictated note No past medical history on file. No past surgical history on file. No family history on file. SOCIAL HISTORY: Social History Substance Use Topics - Smoking status: Current Every Day Smoker - Smokeless tobacco: Never Used - Alcohol use No MEDICATIONS: Prior to Admission medications as of 07/22/17 1017 Medication Sig Last Dose Taking ALPRAZolam (XANAX) 0.25 mg tablet Taking Yes amLODIPine (NORVASC) 10 mg tablet Taking Yes amLODIPine (NORVASC) 5 mg tablet Taking Yes busPIRone (BUSPAR) 10 mg tablet Taking Yes calcium acetate (PHOSLO) 667 mg capsule Taking Yes citalopram (CELEXA) 40 mg tablet Taking Yes cloNIDine HCl (CATAPRES) 0.1 mg tablet Taking Yes VIRTUSSIN AC 10-100 mg/5 mL syrup Taking Yes [employer] RX tablet Taking Yes No medication comments found. CURRENT ALLERGIES: ALLERGIES Allergen Reactions - Augmentin [Amoxicil* Vomiting - Bactrim [Sulfametho* Other: See Comments Chest pain - Lasix [Furosemide] Swelling REVIEW OF SYSTEMS: PAIN ASSESSMENT: General: No weight loss, malaise or fevers. Neuro: n/a Respiratory: No history of current cough or dyspnea, or pneumonia in the past 6 weeks. No history of respiratory/pulmonary symptoms or problems Cardiovascular: Positive for: Hypertension GI: No history of GI symptoms or problems. No history of esophageal varices, recent ascites, or ETOH greater than 2 drinks per day. : Renal failure, Chronic FLOAT OPERATOR: Negative for abnormal vaginal bleeding, abnormal vaginal discharge., N/A : N/A Endocrine: Diabetes Mellitus on insulin Hematology: See HPI Oncology: No history of CA metastasis, chemo within 30 days, or radiotherapy within 90 days. Has not lost 10% of body wt in 6 months. No history of oncological symptoms or problems. Psych: No history of psychiatric symptoms or problems. Musculoskeletal: Negative for joint pain or swelling, back pain or muscle pain. Skin: Negative for lesions, rash and itching. PHYSICAL EXAM: VITALS: BP 179/90 Pulse 98 Temp (Src) 97.5 (Temporal Artery) Resp 12 Ht 5' 7 (1.70m) Wt 177 lb (80.3kg) BMI 27.72 kg/(m2). General: Alert and oriented Skin: Normal color, no rash, no lesions. HEENT: EOM, pupils equal, round and reactive. Cardiovascular: Normal S1 AND S2, no rubs, murmurs or gallops. No JVD. Pulse regular. Lungs: Normal breath sounds, no wheezes or crackles. Abdomen: Soft, non-tender, no rigidity. Extremities: No deformity, no edema or tenderness, no joint swelling or clubbing. Neurological: Normal cognition and motor skills. Pulses: Carotid and radial pulses normal +2. Diagnostic tests reviewed for today's visit: PENDING ASSESSMENT Medication and Non-Pharmacologic VTE Prophylaxis/Anticoagulants The Following Tests/Procedures Have Been Initiated: None Instructions Given to Patient: Patient given verbal and written preop instructions and voices comprehension and compliance. SIGNATURE: Darrell Singh MD PATIENT NAME: Collette Kelly DATE: July 22, 2017 TIME: 11:40 AM PAGER/CONTACT #: Adin Alfonso RN, RN 07/22/2017 2:19 PM Signed AMBULATORY PATIENT EDUCATION NOTE TOPIC: SURVIVAL SKILLS: Safety Precautions READINESS TO LEARN COGNITIVE ABILITY: Alert and oriented MOTIVATION TO LEARN: Eager Interested FAMILY SUPPORT: High - Very involved in pt care INSTRUCTION PROVIDED TO: Patient and family member PATIENT LEARNS BEST BY: Multiple Methods FACTORS AFFECTING LEARNING: None PHYSICAL LIMITATIONS AFFECTING LEARNING: None LEARNING RESPONSE DIAGNOSIS: ESRD METHOD OF INSTRUCTION: Individual instruction Written instruction - handouts Verbal instruction Demonstration-Hands on Learning PATIENT / FAMILY RESPONSE: Verbalizes understanding of: PATIENT SAFETY PRINCIPLES FOLLOW-UP PLAN: Complete - No need for follow-up SUPPLEMENTAL MATERIAL: Your Surgical Guide REFERRAL (RECOMMENDATION): None Electronically Signed By: Adin Alfonso RN In Department: GENERAL SURGERY PROGRESS Observed: 07/17/2017 Status: COMPLETED Source: [place] 7:23 PM [facility] [place] REPOSITORY [facility] ID: [id number] Author: Darrell Singh Service: (none) Author Type: Physician Type: Progress Notes Filed: 07/22/2017 2:19 PM Note Text: see dictated note Darrell Singh MD EMERGENCY REPORT Observed: 06/29/2017 Status: F Source: [facility] 9:19 AM [facility] REPORT NAME ACCOUNT SEX AGE ADMIT DISCHARGE PT MED. RECORD# NUMBER DATE DATE TYPE COLLETTE KELLY [id number] F 46 06/25/17 06/25/17 3 [id number] ROOM: ER DATE OF : 1970 DICTATING PHYSICIAN: Jacoby Omalley ADDENDUM CHIEF COMPLAINT/HISTORY OF PRESENT ILLNESS: This is a 46-year-old white female that was not feeling good all morning. She states she knew her blood pressure was high. She went to dialysis and they noted her blood pressure was high, although dialysis does not want her to take her blood pressure medications prior to dialysis. Since she was not feeling good and her blood pressure was running high they gave her 0.1 mg of her Catapres there and sent her here to the emergency room for an evaluation. Patient has complained of weakness, chills and sweats, some mild shortness of breath off and on. She has complained of a headache which she rates as a 5 on a severity scale of 1 to 10, described as throbbing in nature. She has complained of some intermittent blurred vision but none now. She denies any dizziness. PAST MEDICAL HISTORY: History of renal failure. She has been on dialysis now for about 2 months. She has had previous pneumonia and sepsis from her pneumonia. She is a diabetic, hypertension, and has a history of anxiety. PAST SURGICAL HISTORY: Includes cholecystectomy. She has had a port placement. ALLERGIES: Augmentin, Bactrim, Lasix. SOCIAL HISTORY: She denies any use of alcohol but she does admit to being a smoker of 1/2 pack per day. She lives at home with her family. Her kidney doctor is Dr. Isaías Cai. Dr. Jarocho Barrow is her PCP. REVIEW OF SYSTEMS: Patient denies any chest pain. Does admit to some mild intermittent shortness of breath. Denies any cough, sputum, wheezing, abdominal pain, nausea, vomiting, diarrhea, constipation, melena, or hematochezia. Does admit to a headache and some blurred vision. Does admit to some mild diffuse generalized weakness. Further review of systems are negative. PHYSICAL EXAMINATION: Patient is alert and oriented x 3. She presently appears in no acute distress. She is pleasant and cooperative. HEENT: Head is atraumatic. Pupils are equal and reactive to light. Red reflex is intact bilaterally. Extraocular muscles are intact. No conjunctival injection. Nose exhibits no rhinorrhea or epistaxis. Page 1 of 3 COLLETTE KELLY Emergency Room Report Mouth: Mucous membranes are moist. No pharyngeal erythema. Uvula is midline. Neck is supple. Trachea is midline. No JVD or lymphadenopathy. No posterior cervical tenderness. No nuchal rigidity. Lungs are clear to auscultation bilaterally. No adventitious sounds noted. No accessory muscle use. CVS: Heart rate and rhythm regular without murmur. Abdomen is soft and nontender with normoactive bowel sounds x4 quadrants. No guarding or rigidity. No rebound. No pulsatile mass. No hepatosplenomegaly. I do note a port in her right anterior chest wall. The site is intact without erythema. Extremities: No edema or cyanosis. Peripheral pulses are intact. No motor sensory deficits noted. Hand printed circuit boards plasma etcher is strong and symmetric. Neurologic exam shows the patient to be alert and oriented x4. No motor sensory deficits are noted. Speech is clear. Skin is warm and dry. No diaphoresis or rash. She is pleasant and cooperative. DIAGNOSTIC DATA: A CAT scan of her head was negative. No acute disease. Chest x-ray did show a port but there was no acute disease there as well. Her white count is 12.1, hemoglobin 12.2, hematocrit 36, platelet count 245,000, lactate was normal at 5.6. Her BNP was elevated at 758 but I see no failure on her chest x-ray. I feel that it is most likely elevated from her BUN and creatinine being high. Her troponin was 0.03. Her sodium was 134, potassium 4.3, chloride 94, CO2 was 25.2, BUN 46, and creatinine 5.9. Liver functions came back within normal limits. Ion gap was 19. Blood cultures are pending. EMERGENCY DEPARTMENT COURSE AND TREATMENT: Her blood pressure here was 217/111 when she arrived. I gave her another 0.1 of clonidine here because she does take it as 2 tablets twice a day. She was given 1 at dialysis and I gave her 1 here and her blood pressure has improved. DIAGNOSIS: Hypertension. IMPRESSION/PLAN: At this point, I have advised the patient to make sure that she does continue to take her blood pressure medications. I think her blood pressure is high because they did not let her take her blood pressure medicine prior to dialysis. I did also ask her to call the dialysis center to see if she can get rescheduled for her dialysis session that she missed this morning. Patient was discharged in a clinically stable condition. Nurses notes reviewed. Dictated By: Jacoby Omalley DO 06/25/17 11:35 JOB #: [id number] Transcribed By: cl 06/25/17 20:53 Electronically signed by: E-Sign: Dr. Jacoby Omalley D.O. 06/29/17 09:19 Page 2 of 3 COLLETTE KELLY Emergency Room Report Observed: 06/25/2017 Status: F Source: [facility] CULTURE BLOOD 9:[address] [facility] REPOSITORY CULTURE BLOOD _BLOOD CULTURE_ SET: 24HOUR REPORT NO GROWTH 48HOUR REPORT NO GROWTH 72HOUR REPORT NO GROWTH M I C R O B I O L O G Y R E P O R T FINAL Antimicrobial Susceptibility and Organism Identification Report Specimen Number : [id number] Requested : 06/25/17 Specimen Source : BLOOD Collected : 06/25/17 09:51 [facility] : Emergency Room Received : 06/25/17 09:51 Requesting Physician : LYSSA Patient/Specimen Tests and Comments Specimen Comments FINAL REPORT: No Growth at 5 Days Tech : Source : BLOOD ID # : [id number] FINAL Report Date : / / : Collected : 06/25/17 09:51 06/30/[id number]. 06/30/[email or web address] Performed By: #### [id number] #### [facility],[address] [place] [address] CT BRAIN W/O CONTRAST Observed: 06/25/2017 Status: F Source: [place] [place] 9:48 AM [place] [address] Patient: COLLETTE KELLY Phone#: : 1970 Age: 46 Gender: F Pt. Type: ER Account: [id number] Location: [facility] Ordering: JACOBY OMALLEY Exam Date: 06/25/2017/9:39 Family Phys: JAROCHO PUSHPA Charge Code: [id number] Physician: Beadle Order #: [id number] DLP Dose#: PROCEDURE: CT BRAIN WITHOUT CONTRAST COMPARISON: [facility], CT, BRAIN W/O CON, 10/16/2016, 13:15. INDICATIONS: Elevated blood pressure TECHNIQUE: CT images were obtained without contrast material. All CT scans at this facility use dose modulation, iterative reconstruction, and/or weight based dosing when appropriate to reduce radiation dose to as low as reasonably achievable. IV CONTRAST: No IV contrast used,0ml TOTAL DOSE: 57.5 CTDIvol(mGy) FINDINGS: CEREBRUM: No edema, hemorrhage, mass. Mild global atrophy. CEREBELLUM: No edema, hemorrhage, mass. Mild global atrophy. BRAINSTEM: No edema, hemorrhage, mass, or inappropriate atrophy. CSF SPACES: Ventricles, cisterns, and sulci are appropriate for age. No hydrocephalus, subarachnoid hemorrhage, or mass. SKULL: No mass or other significant visible lesion. SINUSES: Mild mucosal thickening of the right maxillary sinus. ORBITS: Limited views are unremarkable. OTHER: Heavy atherosclerotic calcifications of the cavernous carotid arteries. CONCLUSION: 1. No appreciable acute intracranial abnormality or interval change. Note: An acute ischemic event or extension of chronic ischemic process cannot be initially evident on CT. 2. Heavy atherosclerotic calcifications of the cavernous carotid arteries. Continued Report - Page 2 of 2 Patient: COLLETTE KELLY Phone#: : 1970 Age: 46 Gender: F Pt. Type: ER Account: [id number] Location: 052 Ordering: JACOBY OMALLEY Exam Date: 06/25/2017/9:39 Family Phys: JAROCHO PUSHPA Charge Code: [id number] Physician: Beadle Order #: [id number] DLP Dose#: Dictated by: Michelle Ryan MD on 06/25/2017 at 9:58 Approved by: Michelle Ryan MD on 06/25/2017 at 9:58 CHEST 2 VIEWS Observed: 06/25/2017 Status: F Source: [facility] 9:40 AM [place] [address] Patient: COLLETTE KELLY Phone#: : 1970 Age: 46 Gender: F Pt. Type: ER Account: [id number] Location: 052 Ordering: JACOBY OMALLEY Exam Date: 06/25/2017/9:27 Family Phys: JAROCHO GIBBONSLER Charge Code: [id number] Physician: Beadle Order #: [id number] DLP Dose#: PROCEDURE: X-RAY CHEST 2 VIEWS COMPARISON: [facility], XR, CHEST 2 VIEWS, 05/05/2017, 12:40. INDICATIONS: Shortness of breath FINDINGS: LUNGS: No significant pulmonary parenchymal abnormalities. Interval clearing of the previously visualized right lower lobe infiltrate. VASCULATURE: Normal. Unremarkable pulmonary vasculature. CARDIAC: Normal. No cardiac silhouette abnormality or cardiomegaly. MEDIASTINUM: Normal. No visible mass or adenopathy. PLEURA: There is been interval clearing of the previously visualized bilateral small pleural effusions. The costophrenic angles and posterior sulci are clear. BONES: There is dextroscoliosis of the thoracic spine. OTHER: There has been interval placement of a right chest wall dual lumen central catheter, the tip terminates in the region of the right atrium. CONCLUSION: 1. No acute pulmonary parenchymal abnormality. Dictated by: Michelle Ryan MD on 06/25/2017 at 9:45 Approved by: Michelle Ryan MD on 06/25/2017 at 9:45 CBC Collected: 06/25/2017 Status: F Source: [facility] 8:[address] [facility] REPOSITORY TYPE CODE TESTS RESULT OUT OF RANGE REFERENCE UNITS LAB CBC(LOINC) CBC Result Comment: CBC-COMPLETE BLOOD COUNT LAB WBC(LOINC) 4.5 - 10.8 x 10EE3/UL WBC High 12.1 LAB RBC(LOINC) 4.10 - x 10EE6/UL 5.30 RBC Low 4.04 LAB HEMOGLOBIN(LOINC 12.0 - g/dl ) 16.0 HEMOGLOBIN 12.2 LAB HEMATOCRIT(LOINC 34.0 - % ) 46.0 HEMATOCRIT 36.0 LAB MCV(LOINC) 80 - 99 fl MCV 89 LAB MCH(LOINC) 27 - 33 pg MCH 30 LAB MCHC(LOINC) 32 - 36 X10 3 MCHC 34 LAB RDW/CV(LOINC) 12.0 - % 15.6 RDW/CV High 16.2 LAB PLATELET(LOINC) 150 - 450 x10EE3/UL PLATELET 245 LAB MPV(LOINC) 6.6 - 10.5 fl MPV 8.1 Result Comment: AUTOMATED DIFFERENTIAL LAB NEUT %(LOINC) 46.0 - 76.0 % NEUT % High 76.3 LAB LYMPH %(LOINC) 20.0 - 45.0 % Low LYMPH % 15.4 LAB MONOS %(LOINC) 0.0 - 10.0 % MONOS % 6.1 LAB EO %(LOINC) 0.0 - 7.0 % EO % 1.8 LAB BASO %(LOINC) 0.0 - 2.0 % BASO % 0.4 LAB Lymph #(LOINC) 0.80 - 2.80 x10EE3/U L Lymph # 1.90 LAB Neut #(LOINC) 1.50 - 7.10 x10EE3/U L Neut # High 9.30 LAB Iron #(LOINC) 0.20 - 1.00 x10EE3/U L Iron # 0.70 LAB EO #(LOINC) 0.00 - 0.50 x10EE3/U L EO # 0.20 LAB Baso #(LOINC) 0.00 - 0.10 x10EE3/U L Baso # 0.00 LAB MANUAL DIFF(LOINC) MANUAL DIFF N/A LAB MORPHOLOGY(LOINC ) MORPHOLOGY N/A Result Comment: {CD] Performed By: #### [id number] #### [place] [address] LACTATE Collected: 06/25/2017 Status: F Source: [facility] 8:18 [facility] REPOSITORY TYPE CODE TESTS RESULT OUT OF REFERENCE UNITS RANGE LAB LACTATE(LIZETT 4.5 - 18.0 mg/dL NC) LACTATE 5.6 Performed By: #### [id number] #### [place] [address] TROPONIN Collected: 06/25/2017 Status: F Source: [facility] 8:18 [facility] TYPE CODE TESTS RESULT OUT OF REFERENCE UNITS RANGE LAB TROPONIN 0.00 - 0.05 ng/ml I(LOINC) TROPONIN I 0.03 Result Comment: Elevated troponin (above the 99th percentile) usually indicates myocardial ischemia. Results must be interpreted within the clinical setting. 1.Non-ischemic pathology can also cause elevated troponin levels (e.g., acute pulmonary embolism, myocarditis, pericarditis, heart failure, intracranial injury, rhabdomyolisis, sepsis, shock and renal insufficiency). 2.Approximately 1% of healthy adults have elevated troponin levels. 3.Analytical false positive results rarely occur(due to multiple interferences such as heterophile antibodies). Performed By: #### [id number] #### [place] [address] CMP WITH EGFR Collected: 06/25/2017 Status: F Source: [facility] 8:18 [facility] REPOSITORY TYPE CODE TESTS RESULT OUT OF RANGE REFERENCE UNITS LAB CMP with eGFR(LOINC) CMP with eGFR Result Comment: COMPREHENSIVE METABOLIC PANEL LAB SODIUM(LOINC) 136 - 145 mmol/l SODIUM Low 134 LAB POTASSIUM(LOINC) 3.5 - 5.1 mmol/L POTASSIUM 4.3 LAB CHLORIDE(LOINC) 98 - 107 mmol/L CHLORIDE Low 94 LAB CO2(LOINC) 21.0 - mmol/L 31.0 CO2 25.2 LAB GLUCOSE(LOINC) 74 - 106 mg/dl GLUCOSE High 175 LAB BUN(LOINC) 6 - 20 mg/dl BUN High 46 LAB CREATININE(LOINC) 0.6 - 1.2 mg/dl High CREATININE 5.9 LAB AST/SGOT(LOINC) 13 - 39 U/L AST/SGOT 19 LAB ALK PHOS(LOINC) 38 - 126 U/L ALK PHOS 123 LAB CALCIUM(LOINC) 8.6 - mg/dl 10.2 CALCIUM 9.3 LAB TOTAL 6.4 - 8.3 g/dl PROTEIN(LOINC) TOTAL PROTEIN 7.8 LAB ALBUMIN(LOINC) 3.4 - 4.8 g/dL ALBUMIN 3.9 LAB GLOBULIN(LOINC) 1.5 - 3.8 G/DL GLOBULIN High 3.9 LAB A/G RATIO(LOINC) 0.9 - 1.6 A/G RATIO 1.0 LAB TOTAL BILI(LOINC) 0.0 - 1.5 mg/dl TOTAL BILI 0.5 LAB B/C RATIO(LOINC) 0 - 30 ratio B/C RATIO 8 LAB ALT/SGPT(LOINC) 8 - 35 U/L ALT/SGPT 30 LAB ANION GAP(LOINC) 10 - 20 mmol/L ANION GAP 19 LAB AGE(LOINC) years AGE 46 LAB eGFR(LOINC) 60 - 999 ML/MINUTE eGFR Low 8 LAB eGFR(AA)(LOINC) 60 - 999 ML/MINUTE eGFR(AA) Low 9 Result Comment: ACCORDING TO THE NATIONAL KIDNEY DISEASE EDUCATION PROGRAM(NKDE), A NORMAL eGFR IS A VALUE GREATER THAN OR EQUAL TO 60 ML/MIN/1.73 SQ METERS. CHRONIC KIDNEY DISEASE: <60mL/MIN/1.73 SQ METERS KIDNEY FAILURE: <15mL/MIN/1.73 SQ METERS THIS TEST SHOULD ONLY BE USED FOR PATIENTS 18 YEARS OF AGE AND OLDER. Performed By: #### [id number] #### [facility],[address] [place] [address] BNP (B-TYPE NATRIURETIC Collected: 06/25/2017 Status: F Source: [facility] 8:[address] [facility] REPOSITORY TYPE CODE TESTS RESULT OUT OF RANGE REFERENCE UNITS LAB BNP(LOINC) 1 - 100 pg/ml High BNP 758 Performed By: #### [id number] #### [facility],[address] [place] [address] Observed: 06/25/2017 Status: F Source: [facility] CULTURE BLOOD 8:[address] [facility] REPOSITORY CULTURE BLOOD _BLOOD CULTURE_ SET: 1 of 2 24HOUR REPORT NO GROWTH 48HOUR REPORT NO GROWTH 72HOUR REPORT NO GROWTH M I C R O B I O L O G Y R E P O R T FINAL Antimicrobial Susceptibility and Organism Identification Report Specimen Number : [id number] Requested : 06/25/17 Specimen Source : BLOOD Collected : 06/25/17 08:18 [facility] : Emergency Room Received : 06/25/17 08:18 Requesting Physician : LYSSA Patient/Specimen Tests and Comments Specimen Comments FINAL REPORT: No Growth at 5 Days Tech : Source : BLOOD ID # : [id number] FINAL Report Date : / / : Collected : 06/25/17 08:18 06/30/[email or web address] Performed By: #### [id number] #### [facility],[address] [place] [address] CBC Collected: 05/13/2017 Status: F Source: [facility] 8:06 AM [facility] REPOSITORY TYPE CODE TESTS RESULT OUT OF REFERENCE UNITS RANGE LAB WBC(LOINC) 4.50-10.80 10 3/mcL WBC 5.40 LAB RBCCT(LOINC 4.10-5.30 10 6/mcL ) Low RBC 2.89 LAB HGB(LOINC) 12.0-16.0 G/dL Low Hgb 8.6 LAB HCT(LOINC) 34.0-46.0 % Low Hct 26.0 LAB MCV(LOINC) 80.0-99.0 fL MCV 89.9 LAB MCH(LOINC) 27.0-33.0 pg MCH 29.8 LAB MCHC(LOINC) 32.0-36.0 G/dL MCHC 33.2 LAB RDW(LOINC) 11.5-15.5 % RDW 14.5 LAB PLT(LOINC) 150-450 10 3/mcL Platelet 169 LAB MPV(LOINC) 6.6-10.5 fL MPV 7.9 Performed By: #### CBC, ADIFF, ANEU, BMP, GFR #### [place] [address] .AUTO DIFF Collected: 05/13/2017 Status: F Source: [facility] 8:06 AM [facility] REPOSITORY TYPE CODE TESTS RESULT OUT OF REFERENCE UNITS RANGE LAB CAITLYN(LOINC) 50.0-75.0 % Neutrophil % 64.3 LAB LYM(LOINC) 20.0-40.0 % Low Lymphocyte % 17.1 LAB MON(LOINC) 2.0-13.0 % Monocyte High % 13.8 LAB EO(LOINC) 0.0-6.0 % Eosinophil % 4.4 LAB BAS(LOINC) 0.0-2.5 % Basophil % 0.4 LAB ABLYM(LOIN 0.90-4.32 10 3/mcL C) Lymphocyte, 0.90 Absolute LAB MAHAD(LOINC 0.09-1.40 10 3/mcL ) Monocyte, 0.70 Absolute LAB AEOS(LOINC 0.00-0.65 10 3/mcL ) Eosinophil, 0.20 Absolute LAB ABAS(LOINC 0.00-0.27 10 3/mcL ) Basophil, 0.00 Absolute Performed By: #### CBC, ADIFF, ANEU, BMP, GFR #### [place] [address] .NEUABS Collected: 05/13/2017 Status: F Source: [facility] 8:06 AM [facility] REPOSITORY TYPE CODE TESTS RESULT OUT OF REFERENCE UNITS RANGE LAB ANEU(LOINC) 2.25-8.10 10 3/mcL Neutrophil, 3.50 Absolute Performed By: #### CBC, ADIFF, ANEU, BMP, GFR #### [place] [address] BMP Collected: 05/13/2017 Status: F Source: [facility] 8:06 AM [facility] REPOSITORY TYPE CODE TESTS RESULT OUT OF REFERENCE UNITS RANGE LAB GLU(LOINC) 70-110 mg/dL Glucose Level 100 LAB NA(LOINC) 136-145 mEq/L Sodium Level 139 LAB K(LOINC) 3.5-5.0 mEq/L Potassium Level 4.5 LAB CL(LOINC) 98-110 mEq/L Chloride 107 LAB CO2(LOINC) 22-32 mEq/L CO2 22 LAB EBAL(LOINC 4.0-15.0 mEq/L ) Electrolyte Balance 10.0 LAB BUN(LOINC) 8.0-22.0 mg/dL BUN High 27.0 LAB CRE(LOINC) 0.50-1.20 mg/dL Creatinine High Lvl (s) 3.84 LAB BC(LOINC) 10.0-22.0 ratio Low BUN/Creatinine 7.0 Ratio LAB CA(LOINC) 8.4-10.1 mg/dL Low Calcium Lvl 7.9 Performed By: #### CBC, ADIFF, ANEU, BMP, GFR #### [address] [address] .GFR Collected: 05/13/2017 Status: F Source: [employer] 8:06 AM [facility] REPOSITORY TYPE CODE TESTS RESULT OUT OF REFERENCE UNITS RANGE LAB GFRAA(LOINC ml/min/1.73 ) sqm GFR 15 Haitian Result Comment: GFR Population mean for , Non- Americans Ages 20-29 = 116 mL/min/1.73 sq.m. Ages 30-39 = 107 mL/min/1.73 sq.m. Ages 40-49 = 99 mL/min/1.73 sq.m. Ages 50-59 = 93 mL/min/1.73 sq.m. Ages 60-69 = 85 mL/min/1.73 sq.m. Ages 70+ = 75 mL/min/1.73 sq.m. Chronic Kidney Disease: Less than 60 mL/min/1.73 square meters End Stage Renal Disease: Less than 15 mL/min/1.73 square meters LAB GFRNO(LOINC) ml/min/1.73sqm GFR Non- 13 Result Comment: GFR Population mean for , Non- Americans Ages 20-29 = 116 mL/min/1.73 sq.m. Ages 30-39 = 107 mL/min/1.73 sq.m. Ages 40-49 = 99 mL/min/1.73 sq.m. Ages 50-59 = 93 mL/min/1.73 sq.m. Ages 60-69 = 85 mL/min/1.73 sq.m. Ages 70+ = 75 mL/min/1.73 sq.m. Chronic Kidney Disease: Less than 60 mL/min/1.73 square meters End Stage Renal Disease: Less than 15 mL/min/1.73 square meters Performed By: #### CBC, ADIFF, ANEU, BMP, GFR #### [address] [address] XR CHEST 1 VIEW Observed: 05/12/2017 Status: F Source: [employer] 10:14 AM [facility] Portable upright chest, 05/12/2017. Medical information: Shortness of breath, pulmonary edema. COMPARISON: 05/11/2017 Right thoracic central vein catheter extends into the upper right atrium, stable. Heart size normal. There is improved aeration in the left upper chest. There is focal airspace abnormality in the right lateral perihilar and right medial basilar regions suggesting pneumonitis or atelectasis. No large effusion or pneumothorax. IMPRESSION: Improved aeration left upper chest. Residual airspace disease is present left lower perihilar and right lower lung. Interpreted By: Lyn Villar MD Preliminary Report By: Lyn Villar MD Electronically Signed By: Lyn Villar MD Dictated Date: 05/12/2017 10:52:22 AM Prelim Date: 05/12/2017 10:52:22 AM Sign Date: 05/12/2017 10:53:57 AM MABO Collected: 05/12/2017 Status: F Source: [facility] 9:58 AM [facility] REPOSITORY TYPE CODE TESTS RESULT OUT OF RANGE REFERENCE UNITS LAB ABORH(LOINC ) Unknown ABO/Rh B NEG Interp Performed By: #### ABOM, ANSM #### [place] [address] MABS Collected: 05/12/2017 Status: F Source: [facility] 9:58 AM [facility] REPOSITORY TYPE CODE TESTS RESULT OUT OF REFERENCE UNITS RANGE LAB ANSM(LOINC ) Antibody Negative ABSC Screen Manual Performed By: #### ABOM, ANSM #### [place] [address] RBC (PRODUCT) Collected: 05/12/2017 Status: F Source: [facility] 9:49 AM [facility] REPOSITORY TYPE CODE TESTS RESULT OUT OF REFERENCE UNITS RANGE LAB RBCPR(LOINC ) RBC Product RBC Ready Ready for Pickup Performed By: #### RBCP #### [place] [address] CBC Collected: 05/12/2017 Status: F Source: [facility] 4:39 AM [facility] REPOSITORY TYPE CODE TESTS RESULT OUT OF REFERENCE UNITS RANGE LAB WBC(LOINC) 4.50-10.80 10 3/mcL WBC 7.60 LAB RBCCT(LOINC 4.10-5.30 10 6/mcL ) Low RBC 2.46 LAB HGB(LOINC) 12.0-16.0 G/dL Low Hgb 7.5 LAB HCT(LOINC) 34.0-46.0 % Low Hct 22.0 LAB MCV(LOINC) 80.0-99.0 fL MCV 89.5 LAB MCH(LOINC) 27.0-33.0 pg MCH 30.5 LAB MCHC(LOINC) 32.0-36.0 G/dL MCHC 34.1 LAB RDW(LOINC) 11.5-15.5 % RDW 13.8 LAB PLT(LOINC) 150-450 10 3/mcL Platelet 184 LAB MPV(LOINC) 6.6-10.5 fL MPV 8.3 Performed By: #### CBC, ADIFF, ANEU, BMP, GFR #### [address] [address] .AUTO DIFF Collected: 05/12/2017 Status: F Source: [facility] 4:39 AM [facility] REPOSITORY TYPE CODE TESTS RESULT OUT OF REFERENCE UNITS RANGE LAB CAITLYN(LOINC) 50.0-75.0 % Neutrophil % 74.4 LAB LYM(LOINC) 20.0-40.0 % Low Lymphocyte % 10.9 LAB MON(LOINC) 2.0-13.0 % Monocyte % 9.9 LAB EO(LOINC) 0.0-6.0 % Eosinophil % 4.6 LAB BAS(LOINC) 0.0-2.5 % Basophil % 0.2 LAB ABLYM(LOIN 0.90-4.32 10 3/mcL C) Low Lymphocyte, 0.80 Absolute LAB MAHAD(LOINC 0.09-1.40 10 3/mcL ) Monocyte, 0.80 Absolute LAB AEOS(LOINC 0.00-0.65 10 3/mcL ) Eosinophil, 0.30 Absolute LAB ABAS(LOINC 0.00-0.27 10 3/mcL ) Basophil, 0.00 Absolute Performed By: #### CBC, ADIFF, ANEU, BMP, GFR #### [address] [address] .NEUABS Collected: 05/12/2017 Status: F Source: [facility] 4:39 AM [facility] REPOSITORY TYPE CODE TESTS RESULT OUT OF REFERENCE UNITS RANGE LAB ANEU(LOINC) 2.25-8.10 10 3/mcL Neutrophil, 5.60 Absolute Performed By: #### CBC, ADIFF, ANEU, BMP, GFR #### [address] [address] BMP Collected: 05/12/2017 Status: F Source: [facility] 4:39 AM [facility] REPOSITORY TYPE CODE TESTS RESULT OUT OF REFERENCE UNITS RANGE LAB GLU(LOINC) 70-110 mg/dL Glucose High Level 121 LAB NA(LOINC) 136-145 mEq/L Low Sodium Level 134 LAB K(LOINC) 3.5-5.0 mEq/L Potassium Level 4.4 LAB CL(LOINC) 98-110 mEq/L Chloride 101 LAB CO2(LOINC) 22-32 mEq/L CO2 23 LAB EBAL(LOINC 4.0-15.0 mEq/L ) Electrolyte Balance 10.0 LAB BUN(LOINC) 8.0-22.0 mg/dL BUN High 44.0 LAB CRE(LOINC) 0.50-1.20 mg/dL Creatinine High Lvl (s) 5.19 LAB BC(LOINC) 10.0-22.0 ratio Low BUN/Creatinine 8.5 Ratio LAB CA(LOINC) 8.4-10.1 mg/dL Low Calcium Lvl 8.2 Performed By: #### CBC, ADIFF, ANEU, BMP, GFR #### [address] [address] .GFR Collected: 05/12/2017 Status: F Source: [facility] 4:39 AM [facility] REPOSITORY TYPE CODE TESTS RESULT OUT OF REFERENCE UNITS RANGE LAB GFRAA(LOINC ml/min/1.73 ) sqm GFR 11 Haitian Result Comment: GFR Population mean for , Non- Americans Ages 20-29 = 116 mL/min/1.73 sq.m. Ages 30-39 = 107 mL/min/1.73 sq.m. Ages 40-49 = 99 mL/min/1.73 sq.m. Ages 50-59 = 93 mL/min/1.73 sq.m. Ages 60-69 = 85 mL/min/1.73 sq.m. Ages 70+ = 75 mL/min/1.73 sq.m. Chronic Kidney Disease: Less than 60 mL/min/1.73 square meters End Stage Renal Disease: Less than 15 mL/min/1.73 square meters LAB GFRNO(LOINC) ml/min/1.73sqm GFR Non- 9 Result Comment: GFR Population mean for , Non- Americans Ages 20-29 = 116 mL/min/1.73 sq.m. Ages 30-39 = 107 mL/min/1.73 sq.m. Ages 40-49 = 99 mL/min/1.73 sq.m. Ages 50-59 = 93 mL/min/1.73 sq.m. Ages 60-69 = 85 mL/min/1.73 sq.m. Ages 70+ = 75 mL/min/1.73 sq.m. Chronic Kidney Disease: Less than 60 mL/min/1.73 square meters End Stage Renal Disease: Less than 15 mL/min/1.73 square meters Performed By: #### CBC, ADIFF, ANEU, BMP, GFR #### [place] [address] XR CHEST 1 VIEW Observed: 05/11/2017 Status: F Source: [facility] 5:11 AM [facility] REPOSITORY ORIGINAL XR CHEST 1 VIEW CLINICAL STATEMENT: hypoxia. COMPARISON: 05/10/2017 FINDINGS: Improved aeration in the upper lobes and lung bases identified. Right IJ dialysis catheter remains in functional position. Heart is not enlarged. There is no pneumothorax. IMPRESSION: 1. Improved aeration within the lung mcrae, most likely related to resolving pulmonary edema. Interpreted By: Adelso Ac DO Preliminary Report By: Adelso Ac DO Electronically Signed By: Adelso Ac DO Dictated Date: 05/11/2017 8:34:53 AM Prelim Date: 05/11/2017 8:34:53 AM Sign Date: 05/11/2017 8:51:58 AM BMP Collected: 05/11/2017 Status: F Source: [facility] 4:50 AM [facility] REPOSITORY TYPE CODE TESTS RESULT OUT OF REFERENCE UNITS RANGE LAB GLU(LOINC) 70-110 mg/dL Glucose High Level 121 LAB NA(LOINC) 136-145 mEq/L Low Sodium Level 135 LAB K(LOINC) 3.5-5.0 mEq/L Potassium Level 4.1 LAB CL(LOINC) 98-110 mEq/L Chloride 101 LAB CO2(LOINC) 22-32 mEq/L CO2 24 LAB EBAL(LOINC 4.0-15.0 mEq/L ) Electrolyte Balance 10.0 LAB BUN(LOINC) 8.0-22.0 mg/dL BUN High 32.0 LAB CRE(LOINC) 0.50-1.20 mg/dL Creatinine High Lvl (s) 4.20 LAB BC(LOINC) 10.0-22.0 ratio Low BUN/Creatinine 7.6 Ratio LAB CA(LOINC) 8.4-10.1 mg/dL Low Calcium Lvl 7.9 Performed By: #### BMP, MG, PHOS, GFR, CBC, ADIFF, ANEU #### [place] [address] MG Collected: 05/11/2017 Status: F Source: [facility] 4:50 AM [facility] REPOSITORY TYPE CODE TESTS RESULT OUT OF REFERENCE UNITS RANGE LAB MG(LOINC) 1.6-2.4 mg/dL Magnesium Lvl 1.9 Performed By: #### BMP, MG, PHOS, GFR, CBC, ADIFF, ANEU #### [place] [address] PHOS Collected: 05/11/2017 Status: F Source: [facility] 4:50 AM [facility] REPOSITORY TYPE CODE TESTS RESULT OUT OF REFERENCE UNITS RANGE LAB PHOS(LOINC 2.5-4.5 mg/dL ) Phosphorus 3.7 Performed By: #### BMP, MG, PHOS, GFR, CBC, ADIFF, ANEU #### [place] [address] .GFR Collected: 05/11/2017 Status: F Source: [facility] 4:50 AM [facility] REPOSITORY TYPE CODE TESTS RESULT OUT OF REFERENCE UNITS RANGE LAB GFRAA(LOINC ml/min/1.73 ) sqm GFR 14 Haitian Result Comment: GFR Population mean for , Non- Americans Ages 20-29 = 116 mL/min/1.73 sq.m. Ages 30-39 = 107 mL/min/1.73 sq.m. Ages 40-49 = 99 mL/min/1.73 sq.m. Ages 50-59 = 93 mL/min/1.73 sq.m. Ages 60-69 = 85 mL/min/1.73 sq.m. Ages 70+ = 75 mL/min/1.73 sq.m. Chronic Kidney Disease: Less than 60 mL/min/1.73 square meters End Stage Renal Disease: Less than 15 mL/min/1.73 square meters LAB GFRNO(LOINC) ml/min/1.73sqm GFR Non- 11 Result Comment: GFR Population mean for , Non- Americans Ages 20-29 = 116 mL/min/1.73 sq.m. Ages 30-39 = 107 mL/min/1.73 sq.m. Ages 40-49 = 99 mL/min/1.73 sq.m. Ages 50-59 = 93 mL/min/1.73 sq.m. Ages 60-69 = 85 mL/min/1.73 sq.m. Ages 70+ = 75 mL/min/1.73 sq.m. Chronic Kidney Disease: Less than 60 mL/min/1.73 square meters End Stage Renal Disease: Less than 15 mL/min/1.73 square meters Performed By: #### BMP, MG, PHOS, GFR, CBC, ADIFF, ANEU #### [address] [address] CBC Collected: 05/11/2017 Status: F Source: [facility] 4:50 AM [facility] TYPE CODE TESTS RESULT OUT OF REFERENCE UNITS RANGE LAB WBC(LOINC) 4.50-10.80 10 3/mcL WBC 7.70 LAB RBCCT(LOINC 4.10-5.30 10 6/mcL ) Low RBC 2.36 LAB HGB(LOINC) 12.0-16.0 G/dL Low Hgb 7.1 LAB HCT(LOINC) 34.0-46.0 % Low Hct 21.2 LAB MCV(LOINC) 80.0-99.0 fL MCV 89.9 LAB MCH(LOINC) 27.0-33.0 pg MCH 30.1 LAB MCHC(LOINC) 32.0-36.0 G/dL MCHC 33.4 LAB RDW(LOINC) 11.5-15.5 % RDW 13.8 LAB PLT(LOINC) 150-450 10 3/mcL Platelet 155 LAB MPV(LOINC) 6.6-10.5 fL MPV 8.8 Performed By: #### BMP, MG, PHOS, GFR, CBC, ADIFF, ANEU #### [address] [address] .AUTO DIFF Collected: 05/11/2017 Status: F Source: [facility] 4:50 AM [facility] REPOSITORY TYPE CODE TESTS RESULT OUT OF REFERENCE UNITS RANGE LAB CAITLYN(LOINC) 50.0-75.0 % High Neutrophil % 75.8 LAB LYM(LOINC) 20.0-40.0 % Low Lymphocyte % 11.6 LAB MON(LOINC) 2.0-13.0 % Monocyte % 9.1 LAB EO(LOINC) 0.0-6.0 % Eosinophil % 3.2 LAB BAS(LOINC) 0.0-2.5 % Basophil % 0.3 LAB ABLYM(LOIN 0.90-4.32 10 3/mcL C) Lymphocyte, 0.90 Absolute LAB MAHAD(LOINC 0.09-1.40 10 3/mcL ) Monocyte, 0.70 Absolute LAB AEOS(LOINC 0.00-0.65 10 3/mcL ) Eosinophil, 0.20 Absolute LAB ABAS(LOINC 0.00-0.27 10 3/mcL ) Basophil, 0.00 Absolute Performed By: #### BMP, MG, PHOS, GFR, CBC, ADIFF, ANEU #### [place] [address] .NEUABS Collected: 05/11/2017 Status: F Source: [facility] 4:50 AM [facility] REPOSITORY TYPE CODE TESTS RESULT OUT OF REFERENCE UNITS RANGE LAB ANEU(LOINC) 2.25-8.10 10 3/mcL Neutrophil, 5.80 Absolute Performed By: #### BMP, MG, PHOS, GFR, CBC, ADIFF, ANEU #### [place] [address] XR CHEST 1 VIEW Observed: 05/10/2017 Status: F Source: [facility] 5:12 AM [facility] REPOSITORY ORIGINAL XR CHEST 1 VIEW PORTABLE AP UPRIGHT DATE AND TIME: 05/10/2017 6:39 AM CLINICAL STATEMENT: Chest Pain COMPARISON: 05/09/2017 FINDINGS: The cardiomediastinal contours are normal. Multi lumen right jugular central line remains in good position. Moderate bilateral alveolar infiltrates are again seen, with slight worsening in the right upper lung. No obvious effusion or pneumothorax. IMPRESSION: Moderate bilateral pneumonia, with progression in the right upper lung. Interpreted By: Gunner Sierra MD Preliminary Report By: Gunner Sierra MD Electronically Signed By: Gunner Sierra MD Dictated Date: 05/10/2017 6:49:08 AM Prelim Date: 05/10/2017 6:49:08 AM Sign Date: 05/10/2017 6:50:50 AM CBC Collected: 05/10/2017 Status: F Source: [facility] 4:14 AM [facility] REPOSITORY TYPE CODE TESTS RESULT OUT OF REFERENCE UNITS RANGE LAB WBC(LOINC) 4.50-10.80 10 3/mcL WBC 9.90 LAB RBCCT(LOINC 4.10-5.30 10 6/mcL ) Low RBC 2.70 LAB HGB(LOINC) 12.0-16.0 G/dL Low Hgb 8.3 LAB HCT(LOINC) 34.0-46.0 % Low Hct 24.4 LAB MCV(LOINC) 80.0-99.0 fL MCV 90.2 LAB MCH(LOINC) 27.0-33.0 pg MCH 30.5 LAB MCHC(LOINC) 32.0-36.0 G/dL MCHC 33.9 LAB RDW(LOINC) 11.5-15.5 % RDW 14.4 LAB PLT(LOINC) 150-450 10 3/mcL Platelet 176 LAB MPV(LOINC) 6.6-10.5 fL MPV 8.3 Performed By: #### CBC, ADIFF, ANEU, BMP, MG, PHOS, GFR #### [place] [address] .AUTO DIFF Collected: 05/10/2017 Status: F Source: [facility] 4:14 AM [facility] REPOSITORY TYPE CODE TESTS RESULT OUT OF REFERENCE UNITS RANGE LAB CAITLYN(LOINC) 50.0-75.0 % High Neutrophil % 83.5 LAB LYM(LOINC) 20.0-40.0 % Low Lymphocyte % 8.2 LAB MON(LOINC) 2.0-13.0 % Monocyte % 7.2 LAB EO(LOINC) 0.0-6.0 % Eosinophil % 0.9 LAB BAS(LOINC) 0.0-2.5 % Basophil % 0.2 LAB ABLYM(LOIN 0.90-4.32 10 3/mcL C) Low Lymphocyte, 0.80 Absolute LAB MAHAD(LOINC 0.09-1.40 10 3/mcL ) Monocyte, 0.70 Absolute LAB AEOS(LOINC 0.00-0.65 10 3/mcL ) Eosinophil, 0.10 Absolute LAB ABAS(LOINC 0.00-0.27 10 3/mcL ) Basophil, 0.00 Absolute Performed By: #### CBC, ADIFF, ANEU, BMP, MG, PHOS, GFR #### [place] [id number] .NEUABS Collected: 05/10/2017 Status: F Source: [facility] 4:14 AM [facility] REPOSITORY TYPE CODE TESTS RESULT OUT OF REFERENCE UNITS RANGE LAB ANEU(LOINC) 2.25-8.10 10 3/mcL High Neutrophil, 8.30 Absolute Performed By: #### CBC, ADIFF, ANEU, BMP, MG, PHOS, GFR #### [place] [id number] BMP Collected: 05/10/2017 Status: F Source: [facility] 4:14 AM [facility] REPOSITORY TYPE CODE TESTS RESULT OUT OF REFERENCE UNITS RANGE LAB GLU(LOINC) 70-110 mg/dL Glucose High Level 130 LAB NA(LOINC) 136-145 mEq/L Sodium Level 137 LAB K(LOINC) 3.5-5.0 mEq/L Potassium Level 4.3 LAB CL(LOINC) 98-110 mEq/L Chloride 102 LAB CO2(LOINC) 22-32 mEq/L CO2 25 LAB EBAL(LOINC 4.0-15.0 mEq/L ) Electrolyte Balance 10.0 LAB BUN(LOINC) 8.0-22.0 mg/dL BUN 19.0 LAB CRE(LOINC) 0.50-1.20 mg/dL Creatinine High Lvl (s) 3.09 LAB BC(LOINC) 10.0-22.0 ratio Low BUN/Creatinine 6.1 Ratio LAB CA(LOINC) 8.4-10.1 mg/dL Low Calcium Lvl 7.6 Performed By: #### CBC, ADIFF, ANEU, BMP, MG, PHOS, GFR #### [place] [id number] MG Collected: 05/10/2017 Status: F Source: [facility] 4:14 AM [facility] REPOSITORY TYPE CODE TESTS RESULT OUT OF REFERENCE UNITS RANGE LAB MG(LOINC) 1.6-2.4 mg/dL Magnesium Lvl 2.0 Performed By: #### CBC, ADIFF, ANEU, BMP, MG, PHOS, GFR #### [address] [id number] PHOS Collected: 05/10/2017 Status: F Source: [facility] 4:14 AM [facility] REPOSITORY TYPE CODE TESTS RESULT OUT OF REFERENCE UNITS RANGE LAB PHOS(LOINC 2.5-4.5 mg/dL ) Phosphorus 3.4 Performed By: #### CBC, ADIFF, ANEU, BMP, MG, PHOS, GFR #### [address] [id number] .GFR Collected: 05/10/2017 Status: F Source: [facility] 4:14 AM [facility] REPOSITORY TYPE CODE TESTS RESULT OUT OF REFERENCE UNITS RANGE LAB GFRAA(LOINC ml/min/1.73 ) sqm GFR 20 [place] Result Comment: GFR Population mean for , Non- Americans Ages 20-29 = 116 mL/min/1.73 sq.m. Ages 30-39 = 107 mL/min/1.73 sq.m. Ages 40-49 = 99 mL/min/1.73 sq.m. Ages 50-59 = 93 mL/min/1.73 sq.m. Ages 60-69 = 85 mL/min/1.73 sq.m. Ages 70+ = 75 mL/min/1.73 sq.m. Chronic Kidney Disease: Less than 60 mL/min/1.73 square meters End Stage Renal Disease: Less than 15 mL/min/1.73 square meters LAB GFRNO(LOINC) ml/min/1.73sqm GFR Non- 16 Result Comment: GFR Population mean for , Non- Americans Ages 20-29 = 116 mL/min/1.73 sq.m. Ages 30-39 = 107 mL/min/1.73 sq.m. Ages 40-49 = 99 mL/min/1.73 sq.m. Ages 50-59 = 93 mL/min/1.73 sq.m. Ages 60-69 = 85 mL/min/1.73 sq.m. Ages 70+ = 75 mL/min/1.73 sq.m. Chronic Kidney Disease: Less than 60 mL/min/1.73 square meters End Stage Renal Disease: Less than 15 mL/min/1.73 square meters Performed By: #### CBC, ADIFF, ANEU, BMP, MG, PHOS, GFR #### [address] [id number] RESPID Collected: 05/09/2017 Status: F [facility] [facility] 11:49 AM [facility] REPOSITORY TYPE CODE TESTS RESULT OUT OF REFERENCE UNITS RANGE LAB RESADENO( Not Detected LOINC) Adenovirus Not Detected LAB COVHKU1(L Not Detected OINC) Coronavirus HKU1 Not Detected LAB COVNL63(L Not Detected OINC) Coronavirus NL63 Not Detected LAB SoN371F(L Not Detected OINC) Coronavirus 229E Not Detected LAB COVOC43(L Not Detected OINC) Coronavirus OC43 Not Detected LAB HMV(LOINC Not Detected ) Human Metapneumovirus Not Detected LAB INFA(LOIN Not Detected C) Influenza A Not Detected LAB INFAB(LIZETT Not Detected NC) Influenza B Not Detected LAB PARAFLU1( Not Detected LOINC) Parainfluenza 1 Not Detected LAB PARAFLU2( Not Detected LOINC) Parainfluenza 2 Not Detected LAB PARAFLU3( Not Detected LOINC) Parainfluenza 3 Not Detected LAB PARAFLU4( Not Detected LOINC) Parainfluenza 4 Not Detected LAB RHINO(LIZETT Not Detected NC) Rhinovirus/Enterovir us Not Detected LAB RESRSV(LO Not Detected INC) Respiratory Syncytial Virus Not Detected LAB RESMYCO(L Not Detected OINC) Mycoplasma pneumoniae Not Detected LAB RESCHLAM( Not Detected LOINC) Chlamydophila pneumoniae Not Detected LAB RESBORD(L Not Detected OINC) Bordetella Pertussis Not Detected LAB RESBPAR(L Not Detected OINC) Bordetella Parapertussis Not Detected Performed By: #### RESPID #### [place] [address] MG Collected: 05/09/2017 Status: F Source: [facility] 9:51 AM [facility] REPOSITORY TYPE CODE TESTS RESULT OUT OF REFERENCE UNITS RANGE LAB MG(LOINC) 1.6-2.4 mg/dL Magnesium Lvl 1.9 Performed By: #### MG, PHOS, TROPI #### [place] [address] PHOS Collected: 05/09/2017 Status: F Source: [facility] 9:51 AM [facility] REPOSITORY TYPE CODE TESTS RESULT OUT OF REFERENCE UNITS RANGE LAB PHOS(LOINC 2.5-4.5 mg/dL ) Phosphorus 4.2 Performed By: #### MG, PHOS, TROPI #### [place] [address] TROPI Collected: 05/09/2017 Status: F Source: [facility] 9:51 AM [facility] REPOSITORY TYPE CODE TESTS RESULT OUT OF REFERENCE UNITS RANGE LAB TROPI(LOINC 0.000-0.040 ng/mL ) Troponin I 0.031 Result Comment: Troponin I reference ranges (10/25/13): 0.00-0.040 ng/mL Negative and non-diagnostic. >0.040 ng/mL Consistent with cardiac damage, increased clinical risk and possibility of myocardial infarction. Serial measurements, a rise & fall in test results, clinical history, appropriate symptoms and/or ECG changes may help assess possibility of ID. *Other non-acute coronary syndrome conditions such as CHF, myocarditis, pulmonary emboli, sepsis and cardiac surgery could result in myocardial damage and increased troponin levels. Performed By: #### MG, PHOS, TROPI #### [place] [address] XR CHEST 1 VIEW Observed: 05/09/2017 Status: F Source: [facility] 9:50 AM [facility] REPOSITORY ORIGINAL XR CHEST 1 VIEW Clinical Statement: hypoxia COMPARISON: 05/08/2017 FINDINGS: ] Dual-lumen IJ catheter is unchanged there has been progression of patchy infiltrates and vascular congestion throughout both lungs. No pneumothorax. The cardiac size is slightly enlarged. The osseous structures are unchanged. IMPRESSION: Progression of CHF with pulmonary edema. Interpreted By: Adin Guevara Preliminary Report By: Adin Guevara Electronically Signed By: Adin Guevara Dictated Date: 05/09/2017 10:25:02 AM Prelim Date: 05/09/2017 10:25:02 AM Sign Date: 05/09/2017 10:25:39 AM Observed: 05/09/2017 Status: F Source: [facility] [place] 9:45 AM [facility] REPOSITORY . MICRO - Microbiology PROCEDURE: Legionella Urine Ag [*1] SOURCE: Urine BODY SITE: COLLECTED DATE/TIME: 05/09/2017 09:45 EDT RECEIVED DATE/TIME: 05/09/2017 22:40 EDT START DATE/TIME: 05/09/2017 22:41 EDT FREE TEXT SOURCE: FINAL REPORTS Final Report [] Verified Date/Time/Personnel: 05/09/2017 23:15 EDT Presumptive negative for L. pneumophila serogroup 1 antigen in urine, suggesting no recent or current infection. Legionnaire's disease cannot be ruled out since other serogroups and species may also cause disease. Performing Locations *1: This test was performed at: [address] Performed By: #### COLETTE #### [place] [address] Observed: 05/09/2017 Status: F Source: [facility] 9:45 AM [facility] REPOSITORY . MICRO - Microbiology PROCEDURE: Streptococcus Pneumoniae Urine Antig [1 *1] SOURCE: Urine, Clean Catch BODY SITE: COLLECTED DATE/TIME: 05/09/2017 09:45 EDT RECEIVED DATE/TIME: 05/09/2017 22:40 EDT START DATE/TIME: 05/09/2017 22:41 EDT FREE TEXT SOURCE: FINAL REPORTS Final Report [] Verified Date/Time/Personnel: 05/09/2017 23:15 EDT Presumptive negative for pneumococcal pneumonia, suggesting no current or recent pneumococcal infection. Infection due to Strep pneumoniae cannot be ruled out since the antigen present in the sample may be below the detection limit of the test. Interpretive Data 1: Streptococcus Pneumoniae Urine Antig This test has not been evaluated on patients taking antibiotics for greater than 24 hours or on patients who have recently completed an antibiotic regimen. The accuracy of this test has not been proven in young children. Performing Locations *1: This test was performed at: [address] Performed By: #### SPAG #### [place] [address] CBC Collected: 05/09/2017 Status: F Source: [facility] 4:43 AM [facility] REPOSITORY TYPE CODE TESTS RESULT OUT OF REFERENCE UNITS RANGE LAB WBC(LOINC) 4.50-10.80 10 3/mcL High WBC 12.00 LAB RBCCT(LOINC 4.10-5.30 10 6/mcL ) Low RBC 2.78 LAB HGB(LOINC) 12.0-16.0 G/dL Low Hgb 8.4 LAB HCT(LOINC) 34.0-46.0 % Low Hct 25.1 LAB MCV(LOINC) 80.0-99.0 fL MCV 90.0 LAB MCH(LOINC) 27.0-33.0 pg MCH 30.2 LAB MCHC(LOINC) 32.0-36.0 G/dL MCHC 33.5 LAB RDW(LOINC) 11.5-15.5 % RDW 14.3 LAB PLT(LOINC) 150-450 10 3/mcL Platelet 180 LAB MPV(LOINC) 6.6-10.5 fL MPV 8.2 Performed By: #### CBC, ADIFF, ANEU, BMP, GFR #### [place] [address] .AUTO DIFF Collected: 05/09/2017 Status: F Source: [facility] 4:43 [facility] REPOSITORY TYPE CODE TESTS RESULT OUT OF REFERENCE UNITS RANGE LAB CAITLYN(LOINC) 50.0-75.0 % High Neutrophil % 86.1 LAB LYM(LOINC) 20.0-40.0 % Low Lymphocyte % 8.0 LAB MON(LOINC) 2.0-13.0 % Monocyte % 5.6 LAB EO(LOINC) 0.0-6.0 % Eosinophil % 0.1 LAB BAS(LOINC) 0.0-2.5 % Basophil % 0.2 LAB ABLYM(LOIN 0.90-4.32 10 3/mcL C) Lymphocyte, 1.00 Absolute LAB MAHAD(LOINC 0.09-1.40 10 3/mcL ) Monocyte, 0.70 Absolute LAB AEOS(LOINC 0.00-0.65 10 3/mcL ) Eosinophil, 0.00 Absolute LAB ABAS(LOINC 0.00-0.27 10 3/mcL ) Basophil, 0.00 Absolute Performed By: #### CBC, ADIFF, ANEU, BMP, GFR #### [address] [address] .NEUABS Collected: 05/09/2017 Status: F Source: [facility] 4:43 AM [facility] REPOSITORY TYPE CODE TESTS RESULT OUT OF REFERENCE UNITS RANGE LAB ANEU(LOINC) 2.25-8.10 10 3/mcL High Neutrophil, 10.40 Absolute Performed By: #### CBC, ADIFF, ANEU, BMP, GFR #### [place] [address] BMP Collected: 05/09/2017 Status: F Source: [facility] 4:43 AM [facility] REPOSITORY TYPE CODE TESTS RESULT OUT OF REFERENCE UNITS RANGE LAB GLU(LOINC) 70-110 mg/dL Glucose Level 92 LAB NA(LOINC) 136-145 mEq/L Sodium Level 136 LAB K(LOINC) 3.5-5.0 mEq/L Potassium Level 4.2 LAB CL(LOINC) 98-110 mEq/L Chloride 102 LAB CO2(LOINC) 22-32 mEq/L CO2 25 LAB EBAL(LOINC 4.0-15.0 mEq/L ) Electrolyte Balance 9.0 LAB BUN(LOINC) 8.0-22.0 mg/dL BUN 21.0 LAB CRE(LOINC) 0.50-1.20 mg/dL Creatinine High Lvl (s) 3.59 LAB BC(LOINC) 10.0-22.0 ratio Low BUN/Creatinine 5.8 Ratio LAB CA(LOINC) 8.4-10.1 mg/dL Low Calcium Lvl 8.1 Performed By: #### TIMOTHY, PRATEEK, ANEU, BMP, GFR #### [address] [address] .GFR Collected: 05/09/2017 Status: F Source: [facility] 4:43 AM [facility] REPOSITORY TYPE CODE TESTS RESULT OUT OF REFERENCE UNITS RANGE LAB GFRAA(LOINC ml/min/1.73 ) sqm GFR 17 Haitian Result Comment: GFR Population mean for , Non- Americans Ages 20-29 = 116 mL/min/1.73 sq.m. Ages 30-39 = 107 mL/min/1.73 sq.m. Ages 40-49 = 99 mL/min/1.73 sq.m. Ages 50-59 = 93 mL/min/1.73 sq.m. Ages 60-69 = 85 mL/min/1.73 sq.m. Ages 70+ = 75 mL/min/1.73 sq.m. Chronic Kidney Disease: Less than 60 mL/min/1.73 square meters End Stage Renal Disease: Less than 15 mL/min/1.73 square meters LAB GFRNO(LOINC) ml/min/1.73sqm GFR Non- 14 Result Comment: GFR Population mean for , Non- Americans Ages 20-29 = 116 mL/min/1.73 sq.m. Ages 30-39 = 107 mL/min/1.73 sq.m. Ages 40-49 = 99 mL/min/1.73 sq.m. Ages 50-59 = 93 mL/min/1.73 sq.m. Ages 60-69 = 85 mL/min/1.73 sq.m. Ages 70+ = 75 mL/min/1.73 sq.m. Chronic Kidney Disease: Less than 60 mL/min/1.73 square meters End Stage Renal Disease: Less than 15 mL/min/1.73 square meters Performed By: #### CBC, ADIFF, ANEU, BMP, GFR #### [place] [address] .GFR Collected: 05/08/2017 Status: F Source: [facility] 2:36 PM [facility] REPOSITORY TYPE CODE TESTS RESULT OUT OF REFERENCE UNITS RANGE LAB GFRAA(LOINC ml/min/1.73 ) sqm GFR 11 Haitian Result Comment: GFR Population mean for , Non- Americans Ages 20-29 = 116 mL/min/1.73 sq.m. Ages 30-39 = 107 mL/min/1.73 sq.m. Ages 40-49 = 99 mL/min/1.73 sq.m. Ages 50-59 = 93 mL/min/1.73 sq.m. Ages 60-69 = 85 mL/min/1.73 sq.m. Ages 70+ = 75 mL/min/1.73 sq.m. Chronic Kidney Disease: Less than 60 mL/min/1.73 square meters End Stage Renal Disease: Less than 15 mL/min/1.73 square meters LAB GFRNO(LOINC) ml/min/1.73sqm GFR Non- 9 Result Comment: GFR Population mean for , Non- Americans Ages 20-29 = 116 mL/min/1.73 sq.m. Ages 30-39 = 107 mL/min/1.73 sq.m. Ages 40-49 = 99 mL/min/1.73 sq.m. Ages 50-59 = 93 mL/min/1.73 sq.m. Ages 60-69 = 85 mL/min/1.73 sq.m. Ages 70+ = 75 mL/min/1.73 sq.m. Chronic Kidney Disease: Less than 60 mL/min/1.73 square meters End Stage Renal Disease: Less than 15 mL/min/1.73 square meters Performed By: #### GFR, BMP #### [address] [address] BMP Collected: 05/08/2017 Status: F Source: [facility] 2:36 PM [facility] REPOSITORY TYPE CODE TESTS RESULT OUT OF REFERENCE UNITS RANGE LAB GLU(LOINC) 70-110 mg/dL Glucose High Level 132 LAB NA(LOINC) 136-145 mEq/L Sodium Level 137 LAB K(LOINC) 3.5-5.0 mEq/L Potassium Level 4.4 LAB CL(LOINC) 98-110 mEq/L Chloride 102 LAB CO2(LOINC) 22-32 mEq/L Low CO2 21 LAB EBAL(LOINC 4.0-15.0 mEq/L ) Electrolyte Balance 14.0 LAB BUN(LOINC) 8.0-22.0 mg/dL BUN High 38.0 LAB CRE(LOINC) 0.50-1.20 mg/dL Creatinine High Lvl (s) 4.96 LAB BC(LOINC) 10.0-22.0 ratio Low BUN/Creatinine 7.7 Ratio LAB CA(LOINC) 8.4-10.1 mg/dL Low Calcium Lvl 7.6 Performed By: #### GFR, BMP #### [address] [address] XR CHEST 2 VIEWS Observed: 05/08/2017 Status: F Source: [facility] 11:15 AM [facility] REPOSITORY ORIGINAL XR CHEST 2 VIEWS CLINICAL STATEMENT: Hypoxia. COMPARISON: 05/06/2017 FINDINGS: The heart does not appear enlarged. There are small pleural effusions bilaterally. Bilateral patchy airspace opacities have developed, favor edema or pneumonia, although other etiologies are n ot excluded. A moderate dextroscoliosis of the thoracic spine is noted. A dual lumen hemodialysis catheter has been placed from the right internal jugular approach and terminates within the right side of the heart. IMPRESSION: 1. Development of bilateral patchy airspace opacities, nonspecific. 2. Small bilateral pleural effusions. Interpreted By: Jeanette De Santiago MD Preliminary Report By: Jeanette De Santiago MD Electronically Signed By: Jeanette De Santiago MD Dictated Date: 05/08/2017 6:48:01 PM Prelim Date: 05/08/2017 6:48:01 PM Sign Date: 05/08/2017 6:50:14 PM HEPAC Collected: 05/08/2017 Status: F Source: [facility] 9:22 AM [facility] REPOSITORY TYPE CODE TESTS RESULT OUT OF REFERENCE UNITS RANGE LAB HBSAG(LOINC Negative ) Hep B Negative Surf Ag LAB HBCM(LOINC) Negative Hep B Negative Core IgM Ab Result Comment: No serological evidence of ACUTE Hepatitis B infection.No serological evidence of ACUTE Hepatitis B infection. LAB HCV(LOINC) Negative Negative Hep C Ab LAB HCV1(LOINC) No serological evidence of Hep C Ab Hepatitis C Int infection, although levels of anti-HCV may be undetectable in early infection. LAB HAVM(LOINC) Negative Negative Hep A IgM Ab LAB HAVM1(LOINC) No serological evidence of a Hep A IgM current Hepatitis A Ab Int infection. Performed By: #### HEPAC #### [place] [address] RBC (PRODUCT) Collected: 05/07/2017 Status: F Source: [facility] 1:03 PM [facility] REPOSITORY TYPE CODE TESTS RESULT OUT OF REFERENCE UNITS RANGE LAB RBCPR(LOINC ) RBC Product RBC Ready Ready for Pickup Performed By: #### RBCP #### [address] [address] CBC Collected: 05/07/2017 Status: F Source: [facility] 6:47 AM [facility] REPOSITORY TYPE CODE TESTS RESULT OUT OF REFERENCE UNITS RANGE LAB WBC(LOINC) 4.50-10.80 10 3/mcL WBC 6.10 LAB RBCCT(LOINC 4.10-5.30 10 6/mcL ) Low RBC 2.48 LAB HGB(LOINC) 12.0-16.0 G/dL Low Hgb 7.6 LAB HCT(LOINC) 34.0-46.0 % Low Hct 22.8 LAB MCV(LOINC) 80.0-99.0 fL MCV 91.9 LAB MCH(LOINC) 27.0-33.0 pg MCH 30.7 LAB MCHC(LOINC) 32.0-36.0 G/dL MCHC 33.4 LAB RDW(LOINC) 11.5-15.5 % RDW 14.2 LAB PLT(LOINC) 150-450 10 3/mcL Platelet 196 LAB MPV(LOINC) 6.6-10.5 fL MPV 8.4 Performed By: #### CBC, ADIFF, ANEU, BMP, GFR #### [address] [address] .AUTO DIFF Collected: 05/07/2017 Status: F Source: [facility] 6:47 AM [facility] REPOSITORY TYPE CODE TESTS RESULT OUT OF REFERENCE UNITS RANGE LAB CAITLYN(LOINC) 50.0-75.0 % Neutrophil % 73.2 LAB LYM(LOINC) 20.0-40.0 % Low Lymphocyte % 14.5 LAB MON(LOINC) 2.0-13.0 % Monocyte % 11.3 LAB EO(LOINC) 0.0-6.0 % Eosinophil % 0.5 LAB BAS(LOINC) 0.0-2.5 % Basophil % 0.5 LAB ABLYM(LOIN 0.90-4.32 10 3/mcL C) Lymphocyte, 0.90 Absolute LAB MAHAD(LOINC 0.09-1.40 10 3/mcL ) Monocyte, 0.70 Absolute LAB AEOS(LOINC 0.00-0.65 10 3/mcL ) Eosinophil, 0.00 Absolute LAB ABAS(LOINC 0.00-0.27 10 3/mcL ) Basophil, 0.00 Absolute Performed By: #### CBC, ADIFF, ANEU, BMP, GFR #### [address] [address] .NEUABS Collected: 05/07/2017 Status: F Source: [facility] 6:47 AM [facility] REPOSITORY TYPE CODE TESTS RESULT OUT OF REFERENCE UNITS RANGE LAB ANEU(LOINC) 2.25-8.10 10 3/mcL Neutrophil, 4.50 Absolute Performed By: #### CBC, ADIFF, ANEU, BMP, GFR #### [address] [address] BMP Collected: 05/07/2017 Status: F Source: [facility] 6:47 AM [facility] REPOSITORY TYPE CODE TESTS RESULT OUT OF REFERENCE UNITS RANGE LAB GLU(LOINC) 70-110 mg/dL Low Glucose Level 57 LAB NA(LOINC) 136-145 mEq/L Sodium Level 137 LAB K(LOINC) 3.5-5.0 mEq/L Potassium Level 4.8 LAB CL(LOINC) 98-110 mEq/L Chloride 106 LAB CO2(LOINC) 22-32 mEq/L Low CO2 16 LAB EBAL(LOINC 4.0-15.0 mEq/L ) Electrolyte Balance 15.0 LAB BUN(LOINC) 8.0-22.0 mg/dL BUN High 60.0 LAB CRE(LOINC) 0.50-1.20 mg/dL Creatinine High Lvl (s) 7.09 LAB BC(LOINC) 10.0-22.0 ratio Low BUN/Creatinine 8.5 Ratio LAB CA(LOINC) 8.4-10.1 mg/dL Calcium Lvl 8.6 Performed By: #### CBC, ADIFF, ANEU, BMP, GFR #### [address] [address] .GFR Collected: 05/07/2017 Status: F Source: [facility] 6:47 AM [facility] REPOSITORY TYPE CODE TESTS RESULT OUT OF REFERENCE UNITS RANGE LAB GFRAA(LOINC ml/min/1.73 ) sqm GFR 8 Haitian Result Comment: GFR Population mean for , Non- Americans Ages 20-29 = 116 mL/min/1.73 sq.m. Ages 30-39 = 107 mL/min/1.73 sq.m. Ages 40-49 = 99 mL/min/1.73 sq.m. Ages 50-59 = 93 mL/min/1.73 sq.m. Ages 60-69 = 85 mL/min/1.73 sq.m. Ages 70+ = 75 mL/min/1.73 sq.m. Chronic Kidney Disease: Less than 60 mL/min/1.73 square meters End Stage Renal Disease: Less than 15 mL/min/1.73 square meters LAB GFRNO(LOINC) ml/min/1.73sqm GFR Non- 6 Result Comment: GFR Population mean for , Non- Americans Ages 20-29 = 116 mL/min/1.73 sq.m. Ages 30-39 = 107 mL/min/1.73 sq.m. Ages 40-49 = 99 mL/min/1.73 sq.m. Ages 50-59 = 93 mL/min/1.73 sq.m. Ages 60-69 = 85 mL/min/1.73 sq.m. Ages 70+ = 75 mL/min/1.73 sq.m. Chronic Kidney Disease: Less than 60 mL/min/1.73 square meters End Stage Renal Disease: Less than 15 mL/min/1.73 square meters Performed By: #### CBC, ADIFF, ANEU, BMP, GFR #### [address] Collected: 05/06/2017 Status: F Source: [facility] 10:09 PM [facility] REPOSITORY TYPE CODE TESTS RESULT OUT OF RANGE REFERENCE UNITS LAB HGB(LOINC) 12.0-16.0 G/dL Low Hgb 7.1 LAB HCT(LOINC) 34.0-46.0 % Low Hct 21.2 Performed By: #### HH #### [place] [address] XR CHEST 2 VIEWS Observed: 05/06/2017 Status: F Source: [facility] 4:30 PM [facility] REPOSITORY ORIGINAL XR CHEST 2 VIEWS CLINICAL STATEMENT: Shortness of breath. Cough COMPARISON: None FINDINGS: A hemodialysis catheter has been placed from the right internal jugular approach and appears to enter the right side of the heart. A pneumothorax is not identified. The heart is mildly promine nt. Opacities within the lung bases may be due to a combination of small pleural effusions and underlying atelectasis/infiltrate. There is no vascular congestion. The heart borders are somewhat indistin ct. Presence of lingular and right middle lobe infiltrate is questioned. IMPRESSION: 1. Suspect small amounts of pleural fluid and associated atelectasis/infiltrate. 2. Suspect lingular and right middle lobe infiltrate. Radiographic follow-up to resolution is recommended. Interpreted By: Jeanette De Santiago MD Preliminary Report By: Jeanette De Santiago MD Electronically Signed By: Jeanette De Santiago MD Dictated Date: 05/06/2017 6:40:50 PM Prelim Date: 05/06/2017 6:40:50 PM Sign Date: 05/06/2017 6:42:51 PM IR PERM CATHETER Observed: 05/06/2017 Status: F Source: [facility] PLAC[facility] 3:00 PM [facility] REPOSITORY ORIGINAL PROCEDURE: 1. Tunneled hemodialysis venous catheter placement with fluoroscopy and ultrasound DATE: 05/04/2017 DIRECTOR PHARMACY SERVICES: Alicia Salazar PA-C CLINICAL HISTORY: SILVESTRE COMPARISON: None MATERIALS UTILIZED: MedComp 14.5 Fr Hemo-Flow, 23 cm cuff to tip Probe cover Micropuncture Glue 2-0 Ethibond ANESTHESIA: Local FLUORO: 1.4 minutes AIR KERMA DOSE: 27.59 mGy SITE OF PUNCTURE: RIGHT internal jugular vein PROCEDURE: The procedure, risks, and alternatives, were discussed with the patient and all questions were answered. Written informed consent obtained. Accompanying paperwork was verified for accuracy. Directed his tory and physical exam performed prior to the procedure. Medication reconciliation performed by nursing personnel. Procedure was performed using a cap, sterile gown, sterile gloves, a large sterile shee t, hand hygiene and hospital approved cutaneous antisepsis. The patient was positioned supine on the table and prepped and draped in usual sterile fashion. A critical pause was performed with assisting personnel just prior to the procedure with the patient's benton ntity confirmed using 2 identifiers, confirming site and side. Preliminary ultrasound of the neck demonstrated a widely patent vein and an image was obtained. 2% lidocaine was administered at the puncture site for local anesthesia. A tiny skin incision was made. The vein was cannulated under direct sonographic guidance with a micropuncture set. A wire was advanced into the IVC. The planned tunnel on the chest was anesthetized with 2% lidocaine with epinephrine. A small skin incision was made at the planned entry site. Through this incision, the catheter was tunneled to the initial incision. The venous puncture was dilated and a peel-away sheath placed. The peel-away introducer and wire were removed and the catheter inserted through the peel-away sheath. The peel-away sheath was removed. Final fluoroscopic image demonstrates the catheter tip to be near the cavoatrial junction. All lumens were aspirated and flushed with saline, followed by a heparin flush per protocol. Sterile caps were attached to each lumen. The catheter was fixed to the skin with suture. The tiny neck incis ion was approximated with glue. COMPLICATIONS: None EBL: Minimal PATIENT CONDITION: unchanged IMPRESSION: 1. Successful placement of tunneled cuffed hemodialysis catheter. Interpreted By: Amrit Kuhn MD Preliminary Report By: Alicia Salazar PA-C Electronically Signed By: Amrit Kuhn MD Dictated Date: 05/06/2017 4:41:14 PM Prelim Date: 05/06/2017 4:43:54 PM Sign Date: 05/06/2017 5:19:33 PM PRO Collected: 05/06/2017 Status: F Source: [facility] 12:06 PM [facility] REPOSITORY Order Comment: procedure pending TYPE CODE TESTS RESULT OUT OF REFERENCE UNITS RANGE LAB PT(LOINC) 9.0-14.5 seconds Protime 13.7 Result Comment: Effective 09/01/07, Protime results may be affected by some antibiotics (i.e. Ciprofloxacin, Azithromycin, Bactrim) which may potentiate the action of oral anticoagulants, with further increases in Protime/INR. LAB INR(LOINC) ratio PT International Ratio 1.2 Result Comment: The [employer] (CHEST, 1992, [id number]) recommended therapeutic range for oral anticoagulant therapy is: LOW RISK: Prophylaxis of venous thrombosis INR: 2.0-3.0 Treatment of pulmonary embolism 2.0-3.0 Prevention of systemic embolism 2.0-3.0 HIGH RISK: Mechanical prosthetic valves 2.5-3.5 Performed By: #### PRO #### [address] [address] RBC (PRODUCT) Collected: 05/06/2017 Status: F Source: [facility] 11:02 AM [facility] REPOSITORY Order Comment: to be transfused on HD. TYPE CODE TESTS RESULT OUT OF REFERENCE UNITS RANGE LAB RBCPR(LOINC ) RBC Product RBC Ready Ready for Pickup Performed By: #### RBCP #### [address] [address] EMERGENCY REPORT Observed: 05/06/2017 Status: F Source: [facility] 7:26 AM [facility] NAME ACCOUNT SEX AGE ADMIT DISCHARGE TYPE MED. RECORD# NUMBER DATE DATE COLLETTE KELLY [id number] F 46 05/05/17 [id number] ROOM: DATE OF : 1970 PHYSICIAN: Naman Vuong CHIEF COMPLAINT: Cough and weakness. HISTORY OF PRESENT ILLNESS: The patient states that she has been sick for over a month. She states that it started out with the [facility] crud several weeks to a month ago with mainly cough, congestion, fatigue, etc. She was hanging in there until the last several days to a week when things got significantly worse. She has developed a more productive cough. She has had chills, marked body aches, and fatigue. She feels more weak. She is not complaining of chest pain, mildly short of breath, but very poor appetite. PAST MEDICAL HISTORY: Significant for a number of chronic medical problems including hypertension, diabetes. She does have significant renal failure. MEDICATIONS: She is on multiple medications per med rec list. ALLERGIES: She has allergies to Augmentin and Bactrim. PAST SURGICAL HISTORY: She has had previous cholecystectomy. SOCIAL HISTORY: She lives at home. She does smoke. She does not drink alcohol She is not employed. REVIEW OF SYSTEMS: No known bleeding disorders. She has had chronic anemia. She is on iron for that. No rashes. No known heart or lung disease. PHYSICAL EXAMINATION: This is a 46-year-old female awake, alert, appropriate, pleasant, but ill appearing. Her skin is very pale and dry. No rashes. HEENT: Mildly dry mucosa. Neck is supple without adenopathy. She has mildly diminished breath sounds with some slight expiratory rhonchi, frequent coughing, mild respiratory distress. Cardiac exam is regular, tachy rate without any ectopy or murmurs. Abdomen is soft and nontender. She moves all extremities appropriately without cyanosis or edema. Her capillary refill is diminished at about 2 to 3 seconds. Good peripheral pulses. Vital signs: Temperature 97.7, pulse 119, respirations 20, blood pressure 205/117. Her O2 saturation was 93%. DIAGNOSTIC DATA: Chest x-ray showed some mild bilateral pleural effusion with a right lower lobe infiltrate. Laboratories returned showing a CBC with a white count of 8100, 77.8% neutrophils, H&H quite low at 6.9 and 20.2. Lactate was normal at 4.6. Page 1 of 2 COLLETTE KELLY Emergency Room Report D-dimer was 426. CMP showed a markedly elevated BUN and creatinine of 81 and 8.4. She has had significantly elevated creatinines in the past in the 5 and 6 range. Co2 was 13.4, sodium 133, glucose is 128. EMERGENCY DEPARTMENT COURSE AND TREATMENT: IV of normal saline was placed. She was given a DuoNeb aerosol. Chest x-ray and laboratory studies were obtained. DIAGNOSES: 1. Pneumonia. 2. Chronic renal failure with significantly worsening renal function. 3. Worsening chronic anemia. PLAN/DISPOSITION: I discussed management with her, and the patient will need to be admitted. She obviously will need to be sent where nephrology is available. I discussed this with her. I recommended [facility] where she has been previously. Awaiting discussion with hospitalist there for anticipated transfer. D: Naman Vuong MD TD: 05/05/17 14:03 JOB #: [id number] Transcribed by: am Electronically signed by: BANG Vuong M.D. 05/06/17 07:23 Page 2 of 2 COLLETTE KELLY Emergency Room Report CBC Collected: 05/06/2017 Status: F Source: [facility] 6:36 AM [facility] REPOSITORY TYPE CODE TESTS RESULT OUT OF RANGE REFERENCE UNITS LAB WBC(LOINC) 4.50-10.80 10 3/mcL WBC 5.80 LAB RBCCT(LOIN 4.10-5.30 10 6/mcL C) Low RBC 2.12 LAB HGB(LOINC) 12.0-16.0 G/dL Abnormal Alert Hgb 6.6 LAB HCT(LOINC) 34.0-46.0 % Low Hct 19.4 LAB MCV(LOINC) 80.0-99.0 fL MCV 91.6 LAB MCH(LOINC) 27.0-33.0 pg MCH 31.0 LAB MCHC(LOINC 32.0-36.0 G/dL ) MCHC 33.8 LAB RDW(LOINC) 11.5-15.5 % RDW 13.8 LAB PLT(LOINC) 150-450 10 3/mcL Platelet 203 LAB MPV(LOINC) 6.6-10.5 fL MPV 8.5 Performed By: #### CBC, MG, CMP, GFR, MORPH, ADIFF, ANEU #### [address] [address] MG Collected: 05/06/2017 Status: F Source: [facility] 6:36 AM [facility] REPOSITORY TYPE CODE TESTS RESULT OUT OF REFERENCE UNITS RANGE LAB MG(LOINC) 1.6-2.4 mg/dL Magnesium Lvl 1.9 Performed By: #### CBC, MG, CMP, GFR, MORPH, ADIFF, ANEU #### [facility] [address] [place] [address] CMP Collected: 05/06/2017 Status: F Source: [facility] 6:36 AM [facility] REPOSITORY TYPE CODE TESTS RESULT OUT OF REFERENCE UNITS RANGE LAB GLU(LOINC) 70-110 mg/dL Glucose Level 101 LAB NA(LOINC) 136-145 mEq/L Sodium Level 138 LAB K(LOINC) 3.5-5.0 mEq/L Potassium High Level 5.5 LAB CL(LOINC) 98-110 mEq/L Chloride 109 LAB CO2(LOINC) 22-32 mEq/L Low CO2 14 LAB EBAL(LOINC 4.0-15.0 mEq/L ) Electrolyte Balance 15.0 LAB BUN(LOINC) 8.0-22.0 mg/dL BUN High 77.0 LAB CRE(LOINC) 0.50-1.20 mg/dL Creatinine High Lvl (s) 8.70 LAB BC(LOINC) 10.0-22.0 ratio Low BUN/Creatinine 8.9 Ratio LAB CA(LOINC) 8.4-10.1 mg/dL Low Calcium Lvl 7.9 LAB PROT(LOINC 6.0-8.5 G/dL ) Low Total Protein 5.5 LAB ALB(LOINC) 3.2-4.8 G/dL Low Albumin Level 2.5 LAB GLB(LOINC) 1.5-3.8 G/dL Globulin 3.0 LAB AG(LOINC) 0.9-1.6 ratio Low A/G Ratio 0.8 LAB BILT(LOINC 0.2-1.2 mg/dL ) Bili Total 0.2 LAB AP(LOINC) 38-126 U/L Alk Phos High 134 LAB AST(LOINC) 8-34 U/L AST/SGOT 16 LAB ALT(LOINC) 10-49 U/L ALT/SGPT 32 Performed By: #### CBC, MG, CMP, GFR, MORPH, ADIFF, ANEU #### [address] [address] .GFR Collected: 05/06/2017 Status: F Source: [facility] 6:36 AM [facility] REPOSITORY TYPE CODE TESTS RESULT OUT OF REFERENCE UNITS RANGE LAB GFRAA(LOINC ml/min/1.73 ) sqm GFR 6 Haitian Result Comment: GFR Population mean for , Non- Americans Ages 20-29 = 116 mL/min/1.73 sq.m. Ages 30-39 = 107 mL/min/1.73 sq.m. Ages 40-49 = 99 mL/min/1.73 sq.m. Ages 50-59 = 93 mL/min/1.73 sq.m. Ages 60-69 = 85 mL/min/1.73 sq.m. Ages 70+ = 75 mL/min/1.73 sq.m. Chronic Kidney Disease: Less than 60 mL/min/1.73 square meters End Stage Renal Disease: Less than 15 mL/min/1.73 square meters LAB GFRNO(LOINC) ml/min/1.73sqm GFR Non- 5 Result Comment: GFR Population mean for , Non- Americans Ages 20-29 = 116 mL/min/1.73 sq.m. Ages 30-39 = 107 mL/min/1.73 sq.m. Ages 40-49 = 99 mL/min/1.73 sq.m. Ages 50-59 = 93 mL/min/1.73 sq.m. Ages 60-69 = 85 mL/min/1.73 sq.m. Ages 70+ = 75 mL/min/1.73 sq.m. Chronic Kidney Disease: Less than 60 mL/min/1.73 square meters End Stage Renal Disease: Less than 15 mL/min/1.73 square meters Performed By: #### CBC, MG, CMP, GFR, MORPH, ADIFF, ANEU #### [address] [address] .MORPH Collected: 05/06/2017 Status: F Source: [facility] 6:36 AM [facility] REPOSITORY TYPE CODE TESTS RESULT OUT OF REFERENCE UNITS RANGE LAB PLTE(LOINC ) Platelet Estimate Normal LAB ANIS(LOINC ) Anisocytosis Slight LAB POIK(LOINC ) Poik Slight LAB SCHIS(LOIN C) Schistocyte Rare Performed By: #### CBC, MG, CMP, GFR, MORPH, ADIFF, ANEU #### [place] [address] .AUTO DIFF Collected: 05/06/2017 Status: F Source: [facility] 6:36 AM [facility] REPOSITORY TYPE CODE TESTS RESULT OUT OF REFERENCE UNITS RANGE LAB CAITLYN(LOINC) 50.0-75.0 % High Neutrophil % 76.5 LAB LYM(LOINC) 20.0-40.0 % Low Lymphocyte % 12.7 LAB MON(LOINC) 2.0-13.0 % Monocyte % 9.9 LAB EO(LOINC) 0.0-6.0 % Eosinophil % 0.2 LAB BAS(LOINC) 0.0-2.5 % Basophil % 0.7 LAB ABLYM(LOIN 0.90-4.32 10 3/mcL C) Low Lymphocyte, 0.70 Absolute LAB MAHAD(LOINC 0.09-1.40 10 3/mcL ) Monocyte, 0.60 Absolute LAB AEOS(LOINC 0.00-0.65 10 3/mcL ) Eosinophil, 0.00 Absolute LAB ABAS(LOINC 0.00-0.27 10 3/mcL ) Basophil, 0.00 Absolute Performed By: #### CBC, MG, CMP, GFR, MORPH, ADIFF, ANEU #### [place] [address] .NEUABS Collected: 05/06/2017 Status: F Source: [facility] 6:36 AM [facility] REPOSITORY TYPE CODE TESTS RESULT OUT OF REFERENCE UNITS RANGE LAB ANEU(LOINC) 2.25-8.10 10 3/mcL Neutrophil, 4.50 Absolute Performed By: #### CBC, MG, CMP, GFR, MORPH, ADIFF, ANEU #### [place] [address] HH Collected: 05/05/2017 Status: F Source: [facility] 9:15 PM [facility] REPOSITORY TYPE CODE TESTS RESULT OUT OF RANGE REFERENCE UNITS LAB HGB(LOINC) 12.0-16.0 G/dL Low Hgb 7.4 LAB HCT(LOINC) 34.0-46.0 % Low Hct 22.3 Performed By: #### HH, ABORH, ANTIS #### [place] [address] TABO Collected: 05/05/2017 Status: F Source: [facility] 9:15 PM [facility] REPOSITORY TYPE CODE TESTS RESULT OUT OF RANGE REFERENCE UNITS LAB ABORH(LOINC ) Unknown ABO/Rh B NEG Interp Performed By: #### HH, ABORH, ANTIS #### [place] [address] TABS Collected: 05/05/2017 Status: F Source: [facility] 9:15 PM [facility] REPOSITORY TYPE CODE TESTS RESULT OUT OF REFERENCE UNITS RANGE LAB ANST(LOINC ) Antibody Negative ABSC Screen Tango Performed By: #### HH, LAUREN, ANTIS #### [place] [address] FES Collected: 05/05/2017 Status: F Source: [facility] 9:15 PM [facility] REPOSITORY TYPE CODE TESTS RESULT OUT OF RANGE REFERENCE UNITS LAB FE(LOINC) 37-170 mcg/dL Low Iron 15 LAB IBC(LOINC) 250-500 mcg/dL Low TIBC 217 LAB FESAT(LOINC % ) Iron Sat 7 Performed By: #### FES, FERR #### [place] [address] FERR Collected: 05/05/2017 Status: F Source: [facility] 9:15 PM [facility] REPOSITORY TYPE CODE TESTS RESULT OUT OF REFERENCE UNITS RANGE LAB FERR(LOINC) 8-252 ng/mL High Ferritin 324 Performed By: #### FES, FERR #### [place] [address] URINALYSIS Collected: 05/05/2017 Status: F Source: [facility] 4:[address] [facility] REPOSITORY TYPE CODE TESTS RESULT OUT OF REFERENCE UNITS RANGE LAB URINALYSIS (LOINC) URINALYSIS Result Comment: URINALYSIS LAB Specimen Type(LOINC) Specimen Type Void LAB Color(LOINC) NORMAL: YELLOW Color p.yel LAB Clarity(LOINC) NORMAL: CLEAR Clarity clear LAB ph(LOINC) NORMAL: 5.0-8.0 ph 6 LAB Protein(LOINC) NORMAL: NEGATIVE Protein Abnormal 500 LAB Glucose(LOINC) NORMAL: NORMAL Glucose Abnormal 100 LAB Ketone(LOINC) NORMAL: NEGATIVE Ketone NEG LAB Bilirubin(LOINC) NORMAL: NEGATIVE Bilirubin NEG LAB Blood(LOINC) NORMAL: NEGATIVE Blood Abnormal 50 LAB Urobilinog(LOINC) NORMAL: NORMAL Urobilinog NORM LAB Sp [place](LOINC) NORMAL: 1.010-1.030 Sp [place] 1.015 LAB Nitrite(LOINC) NORMAL: NEGATIVE Nitrite NEG LAB Leukocytes(LOINC) NORMAL: NEGATIVE Leukocytes NEG LAB Microscopic(LOINC ) Microscopic SEE BELOW Result Comment: MICROSCOPIC LAB Wbc(LOINC) 0-5/hpf Wbc 6-10 LAB Rbc(LOINC) 0-3/hpf Rbc 5-10 LAB Casts(LOINC) Casts NONE LAB Crystals(LOINC) Crystals NONE LAB Amorphous(LOINC) Amorphous NONE LAB Bacteria(LOINC) Bacteria TRACE LAB Epi Cells(LOINC) Epi Cells MANY LAB Mucous(LOINC) Mucous NONE LAB Yeast(LOINC) Yeast NONE Performed By: #### [id number] #### [place] [address] Observed: 05/05/2017 Status: F Source: [facility] INFLUENZA VIRUS RAPID 1:[address] [facility] A/B REPOSITORY INFLUENZA A NEGATIVE INFLUENZA B NEGATIVE INTERNAL NEG QC PASS INTERNAL POS QC PASS EXTERNAL QC DONE? YES A NEGATIVE TEST RESULT DOES NOT EXCLUDE INFECTION WITH INFLUENZA A OR B. THEREFORE, THE RESULTS OBTAINED FROM THIS FLU TEST SHOULD BE USED IN CONJUCTION WITH CLINICAL FINDINGS TO MAKE AN ACCURATE DIAGNOSIS. INDIVIDUALS WHO HAVE RECEIVED NASALLY ADMINISTERED INFLUENZA A VACCINE MAY TEST POSITIVE IN COMMERCIALLY AVAILABLE INFLUENZA RAPID DIAGNOSTIC TESTS FOR UP TO THREE DAYS. Performed By: #### [id number] #### [facility],[address] [place] [address] CHEST 2 VIEWS Observed: 05/05/2017 Status: F [facility] [facility] REPOSITORY [place] [address] Patient: COLLETTE KELLY Phone#: : [phone] Age: 46 Gender: F Pt. Type: ER Account: [id number] Location: [facility] Ordering: NAMAN VUONG Exam Date: 05/05/2017/12:40 Family Phys: JAROCHO BARROW Charge Code: [id number] Physician: Beadle Order #: [id number] DLP Dose#: PROCEDURE: X-RAY CHEST 2 VIEWS COMPARISON: [facility], XR, CHEST PA/LAT, 01/19/2017, 20:43. INDICATIONS: Cough FINDINGS: LUNGS: Streaky right lower lobe infiltrate is present. VASCULATURE: Normal. Unremarkable pulmonary vasculature. CARDIAC: Normal. No cardiac silhouette abnormality or cardiomegaly. MEDIASTINUM: Normal. No visible mass or adenopathy. PLEURA: There is blunting of the costophrenic angles bilaterally consistent with effusions which have developed since previous exam. BONES: Normal. No fracture or visible bony lesion. OTHER: Negative. CONCLUSION: 1. Small bilateral pleural effusions. 2. Right lower lobe infiltrate. Dictated by: Laurel Collins MD on 05/05/2017 at 13:32 Approved by: Laurel Collins MD on 05/05/2017 at 13:32 Observed: 05/05/2017 Status: F Source: [facility] CULTURE BLOOD 1:[address] [facility] REPOSITORY CULTURE BLOOD _BLOOD CULTURE_ SET: 2 of 2 24HOUR REPORT NO GROWTH 48HOUR REPORT NO GROWTH 72HOUR REPORT NO GROWTH M I C R O B I O L O G Y R E P O R T FINAL Antimicrobial Susceptibility and Organism Identification Report Specimen Number : [id number] Requested : 05/05/17 Specimen Source : BLOOD Collected : 05/05/17 13:15 [facility] : Emergency Room Received : 05/05/17 13:15 Requesting Physician : ERROL DE LEON Patient/Specimen Tests and Comments Specimen Comments FINAL REPORT: No Growth at 5 Days Tech : Source : BLOOD ID # : [id number] FINAL Report Date : / / : Collected : 05/05/17 13:15 05/11/17.MDS. 05/11/17.MDS.COMPLETE Performed By: #### [id number] #### [facility],[address] [place] [address] CBC Collected: 05/05/2017 Status: F Source: [facility] 1:[address] [facility] REPOSITORY TYPE CODE TESTS RESULT OUT OF RANGE REFERENCE UNITS LAB CBC(LOINC) CBC Result Comment: CBC-COMPLETE BLOOD COUNT LAB WBC(LOINC) 4.5 - 10.8 x 10EE3/UL WBC 8.1 LAB RBC(LOINC) 4.10 - x 10EE6/UL Low 5.30 RBC 2.25 LAB HEMOGLOBIN(LOINC 12.0 - g/dl ) Low 16.0 Alert HEMOGLOBIN 6.9 Result Comment: { CALLED TO Mariluz/H/H/1336 { READ BACK BY [id number]/a/lm { TEST REPEATED LAB HEMATOCRIT(LOINC) 34.0 - % Low 46.0 Alert HEMATOCRIT 20.2 LAB MCV(LOINC) 80 - 99 fl MCV 90 LAB MCH(LOINC) 27 - 33 pg MCH 31 LAB MCHC(LOINC) 32 - 36 X10 3 MCHC 34 LAB RDW/CV(LOINC) 12.0 - % 15.6 RDW/CV 13.5 LAB PLATELET(LOINC) 150 - 450 x10EE3/ UL PLATELET 255 LAB MPV(LOINC) 6.6 - fl 10.5 MPV 8.3 Result Comment: AUTOMATED DIFFERENTIAL LAB NEUT %(LOINC) 46.0 - 76.0 % NEUT % High 77.8 LAB LYMPH %(LOINC) 20.0 - 45.0 % Low LYMPH % 12.2 LAB MONOS %(LOINC) 0.0 - 10.0 % MONOS % 8.7 LAB EO %(LOINC) 0.0 - 7.0 % EO % 0.7 LAB BASO %(LOINC) 0.0 - 2.0 % BASO % 0.6 LAB Lymph #(LOINC) 0.80 - 2.80 x10EE3/U L Lymph # 1.00 LAB Neut #(LOINC) 1.50 - 7.10 x10EE3/U L Neut # 6.30 LAB Iron #(LOINC) 0.20 - 1.00 x10EE3/U L Iron # 0.70 LAB EO #(LOINC) 0.00 - 0.50 x10EE3/U L EO # 0.10 LAB Baso #(LOINC) 0.00 - 0.10 x10EE3/U L Baso # 0.00 LAB MANUAL DIFF(LOINC) MANUAL DIFF N/A LAB MORPHOLOGY(LOINC ) MORPHOLOGY N/A Result Comment: {CD] Performed By: #### [id number] #### [facility],[address] [place], [place] [id number] D-DIMER, QUANTITATIVE Collected: 05/05/2017 Status: F Source: [facility] 1:[address] [facility] REPOSITORY TYPE CODE TESTS RESULT OUT OF REFERENCE UNITS RANGE LAB D-DIMER, QUANTITATI VE(LOINC) D-DIMER, QUANTITATIVE Result Comment: QUANT D-DIMER LAB D-DIMER 0 - 230 ng/ml QUANT(LOINC) High D-DIMER QUANT 462 Performed By: #### [id number] #### [facility],[address] [place] [address] CMP WITH EGFR Collected: 05/05/2017 Status: F Source: [facility] 1:[address] [facility] REPOSITORY TYPE CODE TESTS RESULT OUT OF RANGE REFERENCE UNITS LAB CMP with eGFR(LOINC) CMP with eGFR Result Comment: COMPREHENSIVE METABOLIC PANEL LAB SODIUM(LOINC) 136 - 145 mmol/l SODIUM Low 133 LAB POTASSIUM(LOINC) 3.5 - 5.1 mmol/L POTASSIUM 4.9 LAB CHLORIDE(LOINC) 98 - 107 mmol/L CHLORIDE 104 LAB CO2(LOINC) 21.0 - mmol/L 31.0 CO2 Low 13.4 LAB GLUCOSE(LOINC) 74 - 106 mg/dl GLUCOSE High 128 LAB BUN(LOINC) 6 - 20 mg/dl BUN High 81 LAB CREATININE(LOINC) 0.6 - 1.2 mg/dl High CREATININE 8.4 LAB AST/SGOT(LOINC) 13 - 39 U/L AST/SGOT 16 LAB ALK PHOS(LOINC) 38 - 126 U/L ALK PHOS High 136 LAB CALCIUM(LOINC) 8.6 - mg/dl 10.2 CALCIUM Low 8.1 LAB TOTAL 6.4 - 8.3 g/dl PROTEIN(LOINC) TOTAL PROTEIN 6.4 LAB ALBUMIN(LOINC) 3.4 - 4.8 g/dL ALBUMIN Low 3.2 LAB GLOBULIN(LOINC) 1.5 - 3.8 G/DL GLOBULIN 3.2 LAB A/G RATIO(LOINC) 0.9 - 1.6 A/G RATIO 1.0 LAB TOTAL BILI(LOINC) 0.0 - 1.5 mg/dl TOTAL BILI 0.3 LAB B/C RATIO(LOINC) 0 - 30 ratio B/C RATIO 10 LAB ALT/SGPT(LOINC) 8 - 35 U/L ALT/SGPT 28 LAB ANION GAP(LOINC) 10 - 20 mmol/L ANION High GAP 21 LAB AGE(LOINC) years AGE 46 LAB eGFR(LOINC) 60 - 999 ML/MINUTE eGFR Low 5 LAB eGFR(AA)(LOINC) 60 - 999 ML/MINUTE eGFR(AA) Low 6 Result Comment: ACCORDING TO THE NATIONAL KIDNEY DISEASE EDUCATION PROGRAM(NKDE), A NORMAL eGFR IS A VALUE GREATER THAN OR EQUAL TO 60 ML/MIN/1.73 SQ METERS. CHRONIC KIDNEY DISEASE: <60mL/MIN/1.73 SQ METERS KIDNEY FAILURE: <15mL/MIN/1.73 SQ METERS THIS TEST SHOULD ONLY BE USED FOR PATIENTS 18 YEARS OF AGE AND OLDER. Performed By: #### [id number] #### [place] [address] LACTATE Collected: 05/05/2017 Status: F Source: [facility] 1:[address] [facility] REPOSITORY TYPE CODE TESTS RESULT OUT OF REFERENCE UNITS RANGE LAB LACTATE(LIZETT 4.5 - 18.0 mg/dL NC) LACTATE 4.6 Performed By: #### [id number] #### [place] [address] TROPONIN Collected: 05/05/2017 Status: F Source: [facility] 1:10 [facility] REPOSITORY TYPE CODE TESTS RESULT OUT OF REFERENCE UNITS RANGE LAB TROPONIN 0.00 - 0.05 ng/ml I(LOINC) TROPONIN I 0.03 Result Comment: Elevated troponin (above the 99th percentile) usually indicates myocardial ischemia. Results must be interpreted within the clinical setting. 1.Non-ischemic pathology can also cause elevated troponin levels (e.g., acute pulmonary embolism, myocarditis, pericarditis, heart failure, intracranial injury, rhabdomyolisis, sepsis, shock and renal insufficiency). 2.Approximately 1% of healthy adults have elevated troponin levels. 3.Analytical false positive results rarely occur(due to multiple interferences such as heterophile antibodies). Performed By: #### [id number] #### [place] [id number] BNP (B-TYPE NATRIURETIC Collected: 05/05/2017 Status: F Source: [facility] PEPTIDE) 1:10 [facility] REPOSITORY TYPE CODE TESTS RESULT OUT OF RANGE REFERENCE UNITS LAB BNP(LOINC) 1 - 100 pg/ml High BNP 585 Performed By: #### [id number] #### [address],[place] [address] Observed: 05/05/2017 Status: F Source: [facility] CULTURE BLOOD 1:[address] [facility] REPOSITORY CULTURE BLOOD _BLOOD CULTURE_ SET: 2 24HOUR REPORT NO GROWTH 48HOUR REPORT NO GROWTH 72HOUR REPORT NO GROWTH M I C R O B I O L O G Y R E P O R T FINAL Antimicrobial Susceptibility and Organism Identification Report Specimen Number : [id number] Requested : / / Specimen Source : BLOOD Collected : 05/05/17 : [facility] : EMERGENCY ROOM Received : / / : Requesting Physician : ERROL PHYSICIAN Patient/Specimen Tests and Comments Specimen Comments FINAL REPORT: No Growth at 5 Days Tech : Source : BLOOD ID # : [id number] FINAL Report Date : / / : Collected : 05/05/17 : 05/11/17.MDS. 05/11/17.MDS.COMPLETE Performed By: #### [id number] #### [facility],[address] [place] [address] ALLERGIES ALLERGIES DATE TYPE / CODE NAME / CODE REACTION SEVERITY SOURCE Drug furosemide/F0060 Swelling Unknown [place] 9 Allergy/977131024( 97698(RXNORM) [facility]) Hospital Repository Drug clavulanic Hives Unknown [place] 9 Allergy/116100753( acid/[id number]( [facility] SN[facility]) RXNORM) Hospital Repository Drug sulfamethoxazole Chest Unknown [place] 9 Allergy/779045711( /[id number](RXNO tightness [facility]) ) Hospital Repository Drug trimethoprim/F00 Chest Unknown [place] 9 Allergy/305801373( 6588054(RXNORM) tightness [facility]) Hospital Repository Drug amoxicillin/F006 Hives Unknown [place] 9 Allergy/397979546( 572253(RXNORM) Community SN[facility]) Hospital Repository DRUG BUSPIRONE HCL OTHER: SEE C [place] [address] INGREDI/598542097( Clinic Main SNOMED [facility]) [place] Rep[facility] DRUG/199570207(SNO AMOXICILLIN-POT Vomiting [address]) CLAVULANATE [facility] [place] Repository DRUG/526421295(SNO SULFAMETHOXAZOLE OTHER: SEE C [place] [address]) -TRIMETHOPRIM [facility] Main [place] Repository DRUG FUROSEMIDE [place] [address] INGREDI/390076417( Clinic Main SNOMED CT) [place] Rep[facility] Drug PERCOCET/7511407 Moderate [place] Allergy/459603831( 8(RXNORM) ([facility]) Modifier) Hospital (Qualifier Repository Value) Drug AUGMENTIN/396558 Moderate [place] Allergy/009922012( 73(RXNORM) ([facility]) Modifier) Hospital (Qualifier Repository Value) Drug BACTRIM/76671114 Moderate [place] Allergy/472345049( (RXNORM) ([facility]) Modifier) Hospital (Qualifier Repository Value) Environmental 12/28/14 - MRSA Moderate [place] Allergy/851653765( SCREEN ([facility]) Modifier) Hospital (Qualifier Repository Value) Miscellaneous No Known Food Moderate [place] Allergy/385556165( Allergies ([facility]) Modifier) Hospital (Qualifier Repository Value) ENCOUNTERS ENCOUNTERS ADMIT/DISCHARGE ACCOUNT NUMBER ADMITTING ENCOUNTER LOCATION SOURCE CLASS 03/10/2018/ [id number] Ambulatory [place] 019 [facility] ding:SDCRoom Repository : AC07 02/26/2018/ [id number] Ambulatory [place] 019 [facility] Main [place] Repository 02/26/2018/ [id number] Ambulatory [place] 019 [facility] Repository 02/24/2018/ [id number] Ambulatory [place] 019 [facility] Repository 02/24/2018/ [id number] Ambulatory [place] 019 [facility] [place] Repository 02/19/2018/ [id number] Ambulatory BMSBuilding: [place] 019 [facility] Repository 02/12/2018/ [id number] Ambulatory [place] 018 [facility] [place] Repository 02/12/2018/ [id number] Ambulatory [place] 018 [facility] Repository 02/03/2018/ [id number] Ambulatory BMSBuilding: [place] 018 [facility] Repository 01/27/2018/ [id number] Ambulatory [place] 018 [facility] Repository 01/27/2018/ [id number] Ambulatory [place] 018 [facility] ding:SDCRoom Repository : AC06 01/27/2018/ [id number] Ambulatory BMSBuilding: [place] 018 [facility]MS.[facility] Repository 01/20/2018 [id number] Ambulatory BMSBuilding: [place] [facility] Repository 01/20/2018 [id number] Ambulatory [place] [facility] ding:[facility] Repository 01/20/2018/ [id number] Ambulatory BMSBuilding: [place] 018 [facility] Repository 01/15/2018/ [id number] Ambulatory [place] 018 [facility] Main [place] Repository 01/15/2018/ [id number] Ambulatory [place] 018 [facility] [place] Repository 01/05/2018 [id number] Ambulatory RBuilding: [place] [facility] Repository 01/02/2018/ [id number] RATNA STEIN MD Inpatient ABuilding:[place]. Encounter 4SRoom: [facility]Bed: [facility] Repository 01/01/2018/ [id number] [facility], Emergency Buildin[address] [place] [address] Room: ERBed: [facility] Repository 12/29/2017/ [id number] Ambulatory [place] 018 [facility] Main [place] Repository 12/29/2017/ [id number] Ambulatory [place] 018 [facility] [place] Repository 12/29/2017/ [id number] Ambulatory [place] 018 [facility] [place] Repository 12/29/2017/ [id number] Ambulatory [place] 018 [facility] [place] Repository 12/29/2017/ [id number] Ambulatory [place] 018 [facility] [place] Repository 12/29/2017/ [id number] Ambulatory [place] 018 [facility] [place] Repository 12/29/2017/ [id number] Ambulatory [place] 018 [facility] [place] Repository 12/29/2017/ [id number] Ambulatory [place] 018 [facility] [place] Repository 12/29/2017/ [id number] Ambulatory [place] 018 [facility] [place] Repository 12/29/2017/ [id number] Ambulatory [place] 018 [facility] Repository 12/12/2017 [id number] Ambulatory [place] [facility] Repository 12/12/2017/ [id number] EDEOGA, Inpatient ABuilding:[place] 018 [place] Encounter 4SRoom: Health 4679Bed: A [facility] Repository 12/10/2017/ [id number] Ambulatory [place] 018 [facility] Repository 12/10/2017/ [id number] Ambulatory [place] 018 [facility] Repository 12/04/2017 [id number] MARIA D, Ambulatory [place] GUILLEN MD [facility] Repository 11/21/2017/ [id number] AMINA ESQUEDA, Inpatient ABuilding:ME [place] 018 [place] Encounter 4ERoom: Health 4725Bed: A [facility] Repository 11/21/2017/ [id number] DR NAMAN VUONG Emergency Buildin [place] 018 C Room: ERBed: [facility] Repository 11/17/2017/ [id number] CANDI, Emergency Buildin [place] 018 [place] M Room: ERBed: [facility] Repository 11/06/2017/ [id number] Ambulatory [address] Repository 11/05/2017 [id number] MARY GUILLEN Ambulatory [facility] Repository 11/05/2017/ [id number] Ambulatory [address] Repository 10/27/2017/ [id number] HENRI, Emergency Buildin [place] 018 SELENE ESQUEDA Room: ERBed: [facility] Repository 10/22/2017/ [id number] Ambulatory [address] Repository 10/20/2017/ [id number] CANDI, Emergency Buildin [place] 018 [place] M Room: ERBed: [facility] Repository 10/19/2017/ [id number] CANDI, Emergency Buildin [place] 018 [place] M Room: ERBed: [facility] Repository 09/18/2017/ [id number] PUSHPA, Ambulatory Kana [place]DA[facility]O [employer] Formerly [facility] Repository 09/15/2017 [id number] PUSHPA, Ambulatory Kanaangeli AVENDAÑO [facility] Repository 08/01/2017/ [id number] RIKKI, Ambulatory [place] 018 [facility] Repository 07/29/2017/ [id number] PITO SHEPHERDEW Emergency Buildin Kana 018 DO Room: ERBed: [facility] Repository 07/22/2017/ [id number] Ambulatory [address] Repository 07/22/2017/ [id number] Ambulatory [address] Repository 07/22/2017 [id number] Ambulatory [facility] Repository 07/22/2017 [id number] Ambulatory [facility] Repository 06/25/2017/ [id number] JACOBY OMALLEY Emergency Buildin Kana 018 DO Room: ERBed: [facility] Repository 06/12/2017 [id number] Ambulatory ABuilding:[place] Deirdre [facility] Repository 05/05/2017/ [id number] LETY ESQUEDA, Inpatient ABuilding:[place] Deirdre GOODRICH Encounter 4ERoom: [place] [address]Bed: [facility] Repository 05/05/2017/ [id number] DR NAMAN VUONG Emergency Buildin Kana 018 C Room: ERBed: [facility] Repository PAYERS PAYERS ENCOUNTER GUARANTOR PAYER SUBSCRIBER SOURCE 03/10/2018 COLLETTE [id number] TR Insurance:Shaun BATISTA: [facility] evon GOMEZ Number: [id number]: [id number] Repository Date:7033-14-52BB [address] ([address]) [address] [address]KF: 03/10/2018 Secondary NOT GIVENSANFORD Lucero Insurance:SELF PAY [facility] Number: Effective Repository Date:2018-02-20 02/19/2018 COLLETTE Betancourt Primary CEE [place] [id number] TR Insurance:AULTCAREPoli MILLERDOB: [address], [place] Number: [id number]: [id number] Repository Date:7018-39-32PP BOX () [place] [address]KS: 02/19/2018 Secondary NOT GIVENUNK [place] Insurance:SELF PAY [facility] Number: Effective Repository Date:2018-02-03 02/03/2018 COLLETTE Betancourt Primary CEE [id number] TR Insurance:AULTCAREPoli MILLERDOB: [address], [place] Number: [id number]: [id number] Repository Date:0067-13-02OW BOX () [place] [address]PM: 02/03/2018 Secondary NOT GIVENUNK [place] Insurance:SELF PAY [facility] Number: Effective Repository Date:2018-02-03 01/27/2018 COLLETTE Betancourt Primary CEE [id number] TR Insurance:AULTCAREPoli LETICIADOB: [address], [place] Number: [id number]: [id number] Repository Date:9944-17-99TO BOX () [place] [address]SF: 01/27/2018 Secondary NOT GIVENUNK Jazmine Insurance:SELF PAY [facility] Number: Effective Repository Date:2018-01-26 01/27/2018 COLLETTE Betancourt Primary CEE [id number] TR Insurance:AULTCAREPoli LETICIADOB: [address], [place] Number: [id number]: [id number] Repository Date:4583-57-36GJ BOX () [place] [address]LA: 01/27/2018 Secondary NOT GIVENUNK [place] Insurance:SELF PAY [facility] Number: Effective Repository Date:2018-01-27 01/20/2018 COLLETTE Betancourt Primary CEE [id number] TR Insurance:AULTCAREPoli MILLERDOB: [address], cy Number: [id number]: [id number] Repository Date:3102-65-00XN BOX () [address] [address]TN: 01/20/2018 Secondary NOT GIVENUNK Jazmine Insurance:SELF PAY [facility] Number: Effective Repository Date:2018-01-20 01/20/2018 COLLETTE Betancourt Primary CEE [id number] TR Insurance:AULTCAREPoli MILLERDOB: [address] Number: [id number]: [id number] Repository Date:3523-72-78TH BOX () [place] [address]AN: 01/20/2018 Secondary NOT GIVENUNK Jazmine Insurance:SELF PAY [facility] Number: Effective Repository Date:2018-01-20 01/20/2018 COLLETTE Betancourt Primary CEE [id number] TR Insurance:AULTCAREPoli MILLERDOB: [address], [place] Number: [id number]: [id number] Repository Date:5702-19-59CX BOX () [place] [address]OH: 01/20/2018 Secondary NOT GIVENUNK [place] Insurance:SELF PAY [facility] Number: Effective Repository Date:2017-12-29 01/05/2018 COLLETTE Betancourt Primary Insurance:SELF COLLETTE Betancourt [facility] MILLERDOB: PAY INSCOPolicy MILLERDOB: [facility] [id number] Number: Effective [id number] Repository [facility] [address] Date:2018-01-[address] [facility] [address] [address] [facility] HealthcareNEO [place], 9295-21-39Ucus Name:[address] [place] [address]Shb: [place] [address]Ifp: (HP) (HP) (WP) 01/02/2018 COLLETTE [facility]ourt [facility]ARE MILLERDOB: [facility] Y12Tigvvx Number: [id number] Repository [facility] [id number] [address] [place], Date:2018-01-02 [facility] [address]Woz: [id number] 89[address]Dkm: (266) Name:[facility] Veena [phone] (HP) [address] [place] [address] ()Tel: [phone]: (WP) [phone] 01/01/2018 COLLETTE Betancourt [facility] HospitalD[facility]: [facility]:AULTCARE MILLERDOB: [facility] [id number] Hospital TR 501BIG Number: [address] Repository [place] [id number] [place], [place] [address]Gpy: (330) Date:Plan Name: [id number] [phone] () 12/12/2017 COLLETTE Betancourt [facility] KanaThe Christ HospitalDOB: Insurance:AULTCARE MILLERDOB: [facility] [id number] [facility] 501BIG Number: [address] Repository [place], [place] [id number] [place], [place] [address]Coy: (330) Date:Plan Name: [id number] [phone] (HP) 12/12/2017 COLLETTE Vogt [facility] Insurance:AULTCARE MILLERDOB: [facility] T32Rimngg Number: [id number] Repository [facility] [id number] [address] 51BIG 501BIG [place], Date:2017-12-12 [facility] [address]Zrc: [id number] [address]Mdq: (330) Name:[facility] Box [phone] (HP) [address] [place] [address] (HP)Tel: [phone]: () [phone] 12/04/2017 COLLETTE Betancourt Primary CEE [place] Kana Harperhildajasmeet MONROEDOB: Insurance:AULTCARE MILLERDOB: [facility] [id number] [facility] [address]BIG Number: 6 [address] 51[address] Repository [place] [id number] [place], [place] [address]Vou: (330) Date:Plan Name:A2 [phone] () 11/21/2017 COLLETTE [facility]: Insurance:AULTCARE MONROEDOB: [facility] O51Gfjmme Number: [id number] Repository [facility] [id number] [address] 51BIG 501BIG [place], Date:2017-11-21 [facility] [address]Dzk: [id number] [address]Nfw: (330) Name:[facility] Box [phone] () [address] [place] [address] ()Tel: [phone]: () [phone] 11/21/2017 COLLETTE Betancourt Primary CEE Kana Harpercayetano MONROEDOB: Insurance:AULTCARE MILLERDOB: [facility] [id number] Hospital TR 501BIG Number: 6 [address] 51[address]IG Repository [place], [place] [id number] [place], [place] [address]Bhh: (330) Date:Plan Name: [id number] [phone] () 11/17/2017 COLLETTE Betancourt Primary CEE Kana Harperhildajasmeet MONROEDOB: Insurance:AULTCARE MILLERDOB: [facility] [id number] Hospital TR 501BIG Number: 6 CR 51[address] Repository [place] [id number] [place], [place] [address]Nea: (330) Date:Plan Name:A2 [id number] [phone] () 11/05/2017 COLLETTE Betancourt Primary CEE Trivedi MILLERDOB: Insurance:AULTCAREPoli MILLERDOB: [facility] cy Number: [id number] [facility] TR 501BIG [id number] [address] [place] [address] Repository [place] Date:1712-46-24Smbx 51BIG [place], [address]Ost: (330) Name:[place] [phone] () 10/27/2017 COLLETTE Betancourt Primary CEE Trivedi MONROEDOB: Insurance:AULTCARE MILLERDOB: [facility] [id number] 501BIG Number: 6 CR 51BIG Repository [place] [id number] [place], [place] [address]Uiu: (330) Date:Plan Name:A2 [id number] [phone] () 10/20/2017 COLLETTE Betancourt Primary CEE Trivedi MONROEDOB: Insurance:AULTCARE MILLERDOB: [facility] [id number] Hospital TR 501BIG Number: 6 CR 51BIG Repository [place] [id number] [place], [place] [address]Oyn: (330) Date:Plan Name:A2 [id number] [phone] () 10/19/2017 COLLETTE Betancourt Primary CEE Trivedi MONROEDOB: Insurance:AULTCARE MILLERDOB: [facility] [id number] 501BIG Number: 6 CR 51BIG Repository [place] [id number] [place], [place] [address]Hld: (330) Date:Plan Name:A2 [id number] [phone] () 09/18/2017 COLLETTE Betancourt [facility] CEE Trivedi MONROEDOB: Insurance:AULTCARE MILLERDOB: [facility] [id number] [facility] [address] Number: 6 CR 51BIG Repository 5BIG [place], [id number] [place] [address]Cvi: Date:Plan Name:A2 [id number] () 09/15/2017 COLLETTE Betancourt [facility] COLLETTE Trivedi MONROEDOB: Insurance:AULTCAREPoli MILLERDOB: [facility] cy Number: [id number] Hospital [facility] [id number] [address] [place] [address] ROAD Repository 5BIG [place], Date:Plan Name: 5B [place], [facility] [address]Zzw: [phone] () 07/29/2017 COLLETTE Betancourt [facility] CEE Trivedi MONROEDOB: Insurance:AULTCARE MILLERDOB: [facility] [id number] Hospital TR 501BIG Number: 6 CR 51BIG Repository [place] [id number] [place] [id number]: Date:Plan Name:A2 [id number] () 06/25/2017 COLLETTE Betancourt [facility] CEE Trivedi MONROEDOB: Insurance:AULTCARE MILLERDOB: [facility] [id number] [facility] 501BIG Number: 6 CR 51BIG Repository [place] [id number] [place] [id number]: Date:Plan Name:A2 [id number] () 06/12/2017 COLLETTE [facility] CEE [facility]Houston [facility]: Insurance:AULTCARE MILLERDOB: [facility] Q49Fdskzu Number: [id number] Repository [facility] [address] [id number] [address] 51BIG 51BIG [place], Date:2017-06-10 - [facility] [address]Nna: [id number] [address]Fjy: (330) Name:[facility] Veena [facility]8593 () [address] [place] [address] ()Tel: [phone]: (JL) [phone] 05/05/2017 [facility]: [facility] H17Mcuuas Number: [id number] [facility] [id number] [address] 51BIG 51BIG [place], Date:2017-05-05 - [facility] [address]Xau: [id number] [address]Hsn: (330) Name:[facility] Veena [id number] () [address] [place] [address] ()Tel: [phone]: [phone] 05/05/2017 [facility] Center[facility]: [facility]: [facility] [id number] OUTPATIENTPolicy [id number] [facility] [address]BIG Number: 6 CR 51BIG Repository [place], [place] [id number] [place], [place] [id number]: Date:Plan Name: [id number] ()
== END 2018-01-27 10:50 | disposition home or self-care (01) ==
LOC: SDC 05:55 → AC 05:56
PROVIDERS: Family Provider Family Medicine; PCP Family Medicine; Referring Provider Surgery; Visit Provider Surgery
PROC: (CPT 36821; principal; 2018-01-27 07:45)
DX: I13.11 Hypertensive heart and chronic kidney disease without heart failure, with stage 5 chronic kidney disease, or end stage renal disease (principal); E11.22 Type 2 diabetes mellitus with diabetic chronic kidney disease; N18.5 Chronic kidney disease, stage 5; D63.1 Anemia in chronic kidney disease; Z99.2 Dependence on renal dialysis; Z79.4 Long term (current) use of insulin; M79.89 Other specified soft tissue disorders; F32.9 Major depressive disorder, single episode, unspecified; Z99.81 Dependence on supplemental oxygen; Z79.899 Other long term (current) drug therapy; Z87.891 Personal history of nicotine dependence
CPT/HCPCS: 01844; 36821; 82962

== ENCOUNTER 2018-03-10 07:13 | Day surgery (SDC) | payer OTHER, SELFPAY ==
[2018-01-28 14:28] VITALS: BMI 27.0
[2018-03-10] VITALS (8 sets, daily range): BP systolic 131–156; BP diastolic 80–92; PULSE 84–104; RESP 16; TEMP 36.4–37.4; O2SAT 91–96; BMI 29.1
[2018-03-10 07:50] LABS: Internal QC Validated? YES +Cl - CLEAR BKGD; Pregnancy, Urine Negative Negative
[2018-03-10 07:58] LABS: Hematocrit 33.6 % (37-47); Hemoglobin 10.6 g/dl (12.0-15.0); Mean Corp Hgb Conc 31.5 g/gl (32-36); Mean Corpuscular Hgb 28.1 pg (27.0-32.0); Mean Corpuscular Volume 89.1 fL (81-99); Mean Platelet Vol. 10.3 fl (6.2-12.0); Platelet Count 269 K/mm3 (150-450); RBC Distribution Width CV 17.2 % (11.6-14.6); RBC Distribution Width SD 53.4 fl (35.1-43.9); Red Blood Count 3.77 M/mm3 (4.2-5.4); Scan Indicated on CBC? Y/N NO; White Blood Count 7.4 K/mm3 (4.4-11.0)
[2018-03-10 08:07] LABS: Anion Gap 12 (5-15); BUN 43 mg/dL (7-18); Calcium,Total 9.4 mg/dL (8.5-10.1); Chloride 97 mmol/L (98-107); Creatinine, Serum 4.32 mg/dL (0.55-1.02); EST Glomerular Filtration Rate 12 mL/min (>60); Est Glom Filt Rate - Afr Amer 14 mL/min (>60); Glucose 120 mg/dL (74-106); Potassium 4.6 mmol/L (3.5-5.1); Sodium Level 137 mmol/L (136-145)
--- NOTE | 2018-03-10 09:09 | PCM.DC.FIST ---
Discharge Diet: Renal Diet Discharge Activity: May Not Drive - for 2-3 days or while taking narcotic pain medications., May Shower, May Take a Tub Bath - in 5 days. Lifting Restrictions: 5 pounds Keep extremity elevated above heart level: - - Keep arm elevated above the heart level for 3 days. Additional Activity Instructions:: Exercise hand vigorously with a stress ball. Call your doctor if your incision/area has: Continuous Slow Oozing, Sudden Increased Bleeding - apply pressure and call your doctor., Increased Pain/ Swelling, Increased Redness, Foul Smelling Discharge Call your doctor if you observe: Fever of 101 or Higher Suture Line Care: Avoid Pulling/Pushing, Avoid Pinching/Bending Cleanse incision/area with: Keep Dressing Clean & Dry Additional Dressing/Incision Instructions:: Change or remove dressing in two days. May protect with a gauze bandaid. Allergies/Adverse Reactions: Allergies amoxicillin [From Augmentin] Allergy (Verified 03/03/18 15:00) Hives clavulanic acid [From Augmentin] Allergy (Verified 03/03/18 15:00) Hives furosemide [From Lasix] Allergy (Verified 03/03/18 15:00) Swelling sulfamethoxazole [From Bactrim] Allergy (Verified 03/03/18 15:00) Chest tightness trimethoprim [From Bactrim] Allergy (Verified 03/03/18 15:00) Chest tightness Medications to take at Discharge Insulin Glargine,Hum.rec.anlog [Lantus] 15 unit SQ BID 02/08/15 Lisinopril [Zestril] 10 mg PO DAILY 11/29/15 Metoprolol Tartrate [Lopressor (beta nato)] 12.5 mg PO DAILY 12/06/15 Hydrocodone Bitart/Apap 5-325 [[place] 5MG-325MG] 1 tablet PO Q6H PRN PRN 3 Days #8 tablet 03/10/18 The following prescriptions were given: Hydrocodone Bitart/Apap 5-325 [[place] 5MG-325MG] 1 tablet PO Q6H PRN PRN 3 Days #8 tablet PRN Reason: Pain Primary Care Physician: Alexander Gamble MD [Primary Care Provider] - Test Results: Test results from this visit will be discussed in further detail at your follow-up appointment, if applicable. Please Follow Up With: Guanakito Palafox MD - [phone] When: Call to make an appointment for suture removal and follow up in 10 days.
[2018-03-10] MEDS: Bupivacaine Mpf 0.5% 30 ML VIAL (10:00)
[2018-03-10] MEDS: Heparin Injection (Vial) 5,000 UNIT/ML VIAL 5000 UNIT (10:00)
[2018-03-10] MEDS: Protamine Sulfate 50 MG/5 ML Vial IV (11:55)
--- NOTE | 2018-03-10 12:19 | PCM.OPRPT ---
Problem List (1) Chronic renal failure, stage 5 Status: Acute Report of Operation Date of Procedure: 03/10/18 Pre-Operative Diagnosis: Stage V chronic renal failure in need of hemodialysis access Post-Operative Diagnosis: Same Surgery/Procedure Performed:: Stage II transposition right upper extremity basilic vein to brachial artery arteriovenous fistula creation with bovine patch flow restrictor Description of Surgical Findings:: Timeout and informed consent was obtained. 47-year-old female was taken to the operating initially underwent monitored anesthesia care but that got converted to a general anesthetic due to the extensiveness of the procedure. The right upper extremity was sterilely prepped and draped. 32 cc of 1/2% lidocaine and 26 cc of 1% lidocaine mixed 50-50 with 0.5% Marcaine was used as a local anesthetic. Ultrasound was used to map the course of the basilic vein. Local was instilled. A longitudinal incision was created. Tedious sharp and blunt dissection was required to get the vein dissected free. Side branches were secured with 3-0 Vicryl ligatures and hemoclips were indicated. A single repair site on the vein was performed with a 6-0 Prolene [id number] suture. The vein was harvested from the antecubital space all the way up to the axilla. [place] that I had good length. The site of the tunnel it was mapped. This elected to position further dissection of the brachial artery which was done with sharp and blunt dissection and circumferential control. Then the tunneler was placed from the distal arm up to the proximal arm. The vein was disconnected at the antecubital space using a 0 Vicryl suture ligature. The vein was then tunneled utilizing the 6 mm tunneler. It had been marked to assure no twisting. The patient received 8000 units of heparin. Peripheral vascular clamps were placed on the brachial artery. An 11 blade was used to make an arteriotomy which was extended with Gardner scissors. End-to-side anastomosis created with a running 7-0 Prolene. Upon release the fistula itself had an absolutely strong pulse and thrill. Unfortunately inspection of the hand revealed that it was pale. Doppler inspection revealed only monophasic flow at the radial and ulnar artery. I then used a 8 x 80 mm portion of bovine patch I trimmed it slightly more narrow and used it to wrap around the very origin of the fistula I used interrupted 6-0 Prolene sutures to secure the circumferential patch and to provide some slight flow restriction. The hand was noted to become than pink. Doppler at the radial and ulnar seem to return to triphasic signal. This was after 3 separate Prolene sutures have been placed to help restrict the flow. The fistula itself however continued to have an excellent thrill and bruit based upon Doppler. I took several minutes inspecting the fistula and inspecting the hand feeling that the flow restriction had done enough to allow for flow distally. The patient then received 30 mg of protamine. The wound was closed in layers with deep layer of interrupted 3-0 Vicryl. FloSeal was placed deep to the wound to assist with hemostasis due to the large area of soft tissue dissection. Skin was then approximated running septic or 4-0 Monocryl. Steri-Strips Telfa and ABDs soft roll and Ramiro wrap applied. Sponge and instrument and needle counts were reported the surgeon be correct. Blood loss was 200 cc. She tolerated procedure well was taken to the recovery area in size condition without apparent complication. Guanakito Palafox M.D., F.A.C.S. Type of Anesthesia:: General Anesthesiologist: Serafin Menendez
[2018-03-10 13:15] LABS: Bedside Glucose 115 mg/dL (70-110)
--- OUTSIDE RECORDS SUMMARY | 2018-05-12 07:29 | XMS RPT_ITS ---
:1970 Author Organization OHIP Support Name Relationship Address Phone CEE KELLY Unavailable [address] + [place] [address] MARCIO, EWA Unavailable Unavailable + UE Unavailable Unavailable Unavailable CEE KELLY Unavailable [address] + [place] [address] MARCIO, EWA Unavailable . + [place] [address] UE Unavailable Unavailable Unavailable CEE KELLY Unavailable [address] + [place] [address] MARCIO, EWA Unavailable . + [place] [address] UE Unavailable Unavailable Unavailable CEE KELLY Unavailable [address] + [place] [address] MARCIO, EWA Unavailable Unavailable + UE Unavailable Unavailable Unavailable CEE KELLY Unavailable [address] + [place] [address] MARCIO, EWA Unavailable Unavailable + [place] [address] UE Unavailable Unavailable Unavailable KELLYCEE Unavailable [address] + [place] [address] UE Unavailable Unavailable Unavailable CEE KELLY Unavailable [address] + [place] [address] UE Unavailable Unavailable Unavailable KELLYCEE Unavailable [address] + [place] [address] UE Unavailable Unavailable Unavailable CEE KELLY Unavailable [address] + [address] [place] [address] CEE KELLY Unavailable [address] + [address] [place] [address] CEE KELLY Unavailable [address] + [place], [place] [phone] CEE KELLY Unavailable [address] Unavailable [place] [phone] NOT GIVEN Unavailable Unavailable Unavailable CEE KELLY Unavailable [address] + [place], [place] [phone] CEE KELLY Unavailable [address] Unavailable [place] [id number] NOT GIVEN Unavailable Unavailable Unavailable CEE KELLY Unavailable [address] + [place] [address] CEE KELLY Unavailable [address] + [place], [place] [phone] KELLYCEE Unavailable [address] Unavailable [place] [id number] NOT GIVEN Unavailable Unavailable Unavailable KELLYCEE Unavailable [address] + [place] [address] KELLYCEE Unavailable [address] + [place], [place] [phone] KELLYCEE Unavailable [address] Unavailable [place] [phone] NOT GIVEN Unavailable Unavailable Unavailable KELLYCEE Unavailable [address] + [place], [place] [id number] KELLY CEE Unavailable [address] Unavailable [place] [id number] NOT GIVEN Unavailable Unavailable Unavailable KELLY CEE Unavailable [address] + [place], [place] [id number] KELLY CEE Unavailable [address] Unavailable [place] [id number] NOT GIVEN Unavailable Unavailable Unavailable KELLYCEE Unavailable [address] + [place], [place] [id number] KELLYCEE Unavailable [address] Unavailable [place] [phone] NOT GIVEN Unavailable Unavailable Unavailable CEE KELLY Unavailable [address] + [place], [place] [phone] KELLY CEE Unavailable [address] Unavailable [place], [place] [phone] NOT GIVEN Unavailable Unavailable Unavailable CEE KELLY Unavailable [address] + [place], [place] [phone] CEE KELLY Unavailable [address] Unavailable [place], [place] [phone] NOT GIVEN Unavailable Unavailable Unavailable CEE KELLY Unavailable [address] + [place] [phone] CEE KELLY Unavailable [address] Unavailable [place] [phone] NOT GIVEN Unavailable Unavailable Unavailable NOT GIVEN Unavailable Unavailable Unavailable CEE KELLY Unavailable [address] + [place], [place] [phone] CEE KELLY Unavailable [address] Unavailable [place], [place] [phone] NOT GIVEN Unavailable Unavailable Unavailable CEE KELLY Unavailable [address] + [place] [phone] CEE KELLY Unavailable [address] Unavailable [place], [place] [phone] NOT GIVEN Unavailable Unavailable Unavailable CEE KELLY Unavailable [address] + [place] [address] CEE KELLY Unavailable [address] + [place] [address] CEE KELLY Unavailable [address] + [place] [phone] CEE KELLY Unavailable [address] Unavailable [place] [phone] NOT GIVEN Unavailable Unavailable Unavailable Care Team Providers Name Role Phone JOLEEN DAVIDSON MD Admitting Unavailable [facility] Primary Care Unavailable LIV BAIG, DR. VENKATA Mason Attending Unavailable [facility] Consulting Unavailable EDUARDO PENA MD, V. Consulting Unavailable MINDI TAYLOR DO Consulting Unavailable FRED LA MD Consulting Unavailable HEMA PETERSON MD Consulting Unavailable FRED KELLY MD Consulting Unavailable NADIA BOYCE MD Consulting Unavailable ALICIA SALAZAR Consulting Unavailable FRED KELLY MD Attending Unavailable [facility] Primary Care Unavailable AMBROSE HUYNH MD Admitting Unavailable DEMETRA BAIG, [facility] Care Unavailable JOHAN SAEED DO Attending Unavailable MORALES FLOYD MD Consulting Unavailable LYN APODACA DO Consulting Unavailable MEERA FREEMAN MD Consulting Unavailable SHI KUHN Consulting Unavailable WINSTON CAI MD Consulting Unavailable DEMETRA BAIG, KANNAN Consulting Unavailable SHAZIA BAIG, DR. MICHAELS Consulting Unavailable LYN TORRES MD Consulting Unavailable DEMETRA BAIG, FENNIMORE Primary Care Unavailable ANH RUVALCABA Admitting Unavailable GREGORIO PAZ, DR. DANIEL Attending Unavailable YURIY FENG Consulting Unavailable ANALI INFANTE MD, BA. Consulting Unavailable LYN TORRES MD Consulting Unavailable WINSTON CAI MD Consulting Unavailable NATHAN OHARA DO Consulting Unavailable DEMETRA BAIG, KANNAN Consulting Unavailable DEDRA PAZ, DR. ADIN Torres Consulting Unavailable RATNA STEIN MD Admitting Unavailable RATNA STEIN MD Attending Unavailable DEMETRA BAIG, FENNIMORE Primary Care Unavailable DEMETRA BAIG, KANNAN Consulting Unavailable ANALI INFANTE MD, BA. Consulting Unavailable DEDRA PAZ, DR. ADIN Torres Consulting Unavailable WINSTON CAI MD Consulting Unavailable LYN TORRES MD Consulting Unavailable EMIL ESQUEDA, RATNA Lambert Attending Unavailable DEMETRA BAIG, FENNIMORE Primary Care Unavailable MIEDEL, MARY E Admitting [...] Consulting Unavailable PROVIDER, UNKNOWN Consulting Unavailable HABERBERGER, ARLETH M Admitting Unavailable HABERBERGER, ARLETH M Attending Unavailable JAROCHO BARROW CNP Referring Unavailable HABERBERGER, ARLETH M Primary Care Unavailable JAROCHO BARROW CNP Consulting Unavailable PROVIDER, UNKNOWN Consulting Unavailable PROVIDER, UNKNOWN Consulting Unavailable HABERBERGER, ARLETH M Admitting Unavailable HABERBERGER, ARLETH M Attending Unavailable JAROCHO BARROW CNP Referring Unavailable HABERBERGER, ARLETH M Primary Care Unavailable JAROCHO BARROW CNP Consulting Unavailable PROVIDER, UNKNOWN Consulting Unavailable PROVIDER, UNKNOWN Consulting Unavailable JORGE ALEMAN MD Admitting Unavailable JORGE ALEMAN MD Attending Unavailable JORGE ALEMAN MD Primary Care Unavailable JAROCHO BARROW CNP Consulting Unavailable JAROCHO BARROW CNP Referring Unavailable PROVIDER, UNKNOWN Consulting Unavailable PROVIDER, UNKNOWN Consulting Unavailable HABERBERGER, ARLETH M Admitting Unavailable HABERBERGER, ARLETH M Attending Unavailable KANNAN GAMBLE Referring Unavailable HABERBERGER, ARLETH M Primary Care Unavailable KANNAN GAMBLE Consulting [...] Referring Unavailable NO, DOCTOR ON Consulting Unavailable WINSTON CAI Referring Unavailable KANNAN GAMBLE) Referring Unavailable KANNAN GAMBLE) Referring Unavailable KANNAN GAMBLE) Referring Unavailable SHERRY PHILIP Attending Unavailable KANNAN GAMBLE) Referring Unavailable KANNAN GAMBLE) Referring Unavailable KANNAN GAMBLE) Attending Unavailable KANNAN GAMBLE) Referring Unavailable PODLOGARAUGUSTINA) Attending Unavailable KANNAN GAMBLE) Referring Unavailable KANNAN GAMBLE) Attending Unavailable AYALA, WINSTON MARVEL Referring Unavailable AYALA, WINSTON MARVEL Referring Unavailable AYALA, WINSTON MARVEL Referring Unavailable AYALA, WINSTON MARVEL Referring Unavailable AYALA, WINSTON MARVEL Referring Unavailable AYALA, WINSTON MARVEL Referring Unavailable AYALA, WINSTON MARVEL Referring Unavailable JIM GARSIA (CHAZ) Attending Unavailable AYALA, WINSTON MARVEL Referring Unavailable AYALA, WINSTON MARVEL Referring Unavailable BURSKANNAN CARDENAS) Referring Unavailable KANNAN GAMBLE) Attending Unavailable PODLOGAR, AUGUSTINA (SENDY) Attending Unavailable KANNAN GAMBLE) Referring Unavailable KANNAN GAMBLE) Attending Unavailable JAROCHO BARROW Referring Unavailable DARRELL SINGH Admitting Unavailable DARRELL SINGH Attending Unavailable RIKKI DARRELL Referring Unavailable RIKKI DARRELL Referring Unavailable RIKKI, DARRELL Referring Unavailable DARRELL SINGH Attending Unavailable AYALA, WINSTON MARVEL Referring Unavailable Cebul, Guanakito Attending Unavailable Cebul, Guanakito Referring Unavailable Noahley, Alexander Primary Care Unavailable Laura Jasso PA-C Attending Unavailable NoahleyAlexander Referring Unavailable Cebul, Guanakito Attending Unavailable Alexander Gamble Referring Unavailable Cebul, Guanakito Attending Unavailable Alexander Gamble Referring Unavailable Cebul, Guanakito Attending Unavailable Cebul, Guanakito Referring Unavailable Bursley, Alexander Primary Care Unavailable Cebul, Guanakito Attending Unavailable Cebul, Guanakito Attending Unavailable Cebul, Guanakito Referring Unavailable WILLINGHAM, RADHA Primary Care Unavailable Cebul, Guanakito Attending Unavailable Cebul, Guanakito Referring Unavailable WILLINGHAM, RADHA Primary Care Unavailable Guanakito Palafox Consulting Unavailable PROBLEMS PROBLEMS DATE TYPE CONDITION / CODE ATTENDING STATUS SOURCE Unknown G89.18 - Other acute Guanakito Palafox Active [place] 9 postprocedural pain / Community G89.18(ICD-10) Hospital Repository Active Abnormal levels of NA Active [place] 9 other serum enzymes / Clinic Main R74.8(ICD-10) [place] Repository Active Other specified NA Active [place] 9 abnormal findings of Clinic Main blood chemistry / [place] R79.89(ICD-10) Repository Active Secondary amenorrhea NA Active [place] [facility] / N91.1(ICD-10) Clinic Main [place] Repository Active Encounter for NA Active [place] 9 screening mammogram Clinic Main for malignant [place] neoplasm of breast / Repository Z12.31(ICD-10) Active Type 2 diabetes NA Active [place] 8 mellitus with Clinic Main diabetic chronic [place] kidney disease / Repository E11.22(ICD-10) Active Dependence on renal NA Active [place] 8 dialysis / Clinic Main Z99.2(ICD-10) [place] Repository Active 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 (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 [place] 8 use of insulin / Clinic Main Z79.4(ICD-10) [place] Repository Unknown N18.5 - Chronic Guan[place]ito Palafox Active [place] 9 kidney disease, stage Community 5 / N18.5(ICD-10) Hospital Repository Unknown Z01.818 - Encounter Gu[place]ito Palafox Active [place] 8 for other Community preprocedural Hospital examination / Repository Z01.818(ICD-10) Unknown M79.89 - Other [place]ito Palafox Active [place] 8 specified soft tissue Community disorders / Hospital M79.89(ICD-10) Repository Active Pneumonia, Active [place] 8 unspecified organism Clinic Main / J18.9(ICD-10) [place] Repository Active Orthopnea / Active [place] 8 R06.01(ICD-10) Clinic Main [place] Repository Active Type 2 diabetes Active [place] 8 mellitus with Clinic Main diabetic nephropathy [place] / E11.21(ICD-10) Repository Active Tobacco use / Active [place] 8 Z72.0(ICD-10) Clinic Main [place] Repository Active Age-related physical NA Active [place] 8 debility / Clinic Main R54(ICD-10) [place] Repository Active Encounter for other Active [place] 8 preprocedural Clinic Main examination / [place] Z01.818(ICD-10) Repository Active Chronic kidney NA Active [place] 8 disease, unspecified Clinic Main / N18.9(ICD-10) [place] Repository Active Other specified NA Active [place] 8 symptoms and signs Clinic Main involving the [place] digestive system and Repository abdomen / R19.8(ICD-10) Active End stage renal NA Active [place] [facility] disease / Clinic Main N18.6(ICD-10) [place] Repository Active Gastrointestinal NA Active [place] 8 hemorrhage, Clinic Main unspecified / [place] K92.2(ICD-10) Repository Active Tachycardia, NA Active [place] [facility] unspecified / Clinic Main R00.0(ICD-10) [place] Repository Principle Chronic kidney MARY GUILLEN Active [facility] [place] 8 Diagnosis disease, stage 4 [facility] (severe) / Hospital N184(ICD-10) Repository Active Unknown / Jessie GAMBLE 8 UNK(Unknown) KANNAN [facility] () [place] Repository Principle Other general JAROCHO BARROW Active [facility] [place] 8 Diagnosis symptoms and signs / [facility] R6889(ICD-10) Hospital Repository Secondary Type 2 diabetes [facility] without [facility] complications / Hospital E119(ICD-10) Repository PROCEDURES PROCEDURES No Procedure Records FoundRESULTS RESULTS DISCHARGE INSTRUCTION Observed: 03/11/2018 Status: F Source: [place] 7:12 AM [facility] REPOSITORY [facility] Medical Records Department [address] [place] [id number] Instructions for Home/Discharge Instructions 03/10/18 0909 MR#: [id number] Acct: [id number] Name: JUAN KELLY Rep #: [id number] : 1970 47 From: Guanakito Palafox MD PCP: Alexander Gamble MD Status: DEP [facility] Discharge Diet: Renal Diet Discharge Activity: May [...] Dressing Clean AND Dry Additional Dressing/Incision Instructions:: Change or remove dressing in two days. May protect with a gauze bandaid. Allergies/Adverse Reactions: Allergies amoxicillin [From Augmentin] Allergy (Verified 03/03/18 15:00) Hives clavulanic acid [From Augmentin] Allergy (Verified 03/03/18 15:00) Hives furosemide [From Lasix] Allergy (Verified 03/03/18 15:00) Swelling sulfamethoxazole [From Bactrim] Allergy (Verified 03/03/18 15:00) Chest tightness trimethoprim [From Bactrim] Allergy (Verified 03/03/18 15:00) Chest tightness Medications to take at Discharge Insulin Glargine,Hum.rec.anlog [Lantus] 15 unit SQ BID 02/08/15 Lisinopril [Zestril] 10 mg PO DAILY 11/29/15 Metoprolol Tartrate [Lopressor (beta nato)] 12.5 mg PO DAILY 12/06/15 Hydrocodone Bitart/Apap 5-325 [[place] 5MG-325MG] 1 tablet PO Q6H PRN PRN 3 Days #8 tablet 03/10/18 The following prescriptions were given: Hydrocodone Bitart/Apap 5-325 [Mentone 5MG-325MG] 1 tablet PO Q6H PRN PRN 3 Days #8 tablet PRN Reason: Pain Primary Care Physician: Alexander Gamble MD [Primary Care Provider] - Test Results: Test results from this visit will be discussed in further detail at your follow-up appointment, if applicable. Please Follow Up With: Guanakito Palafox MD - [phone] When: Call to make an appointment for suture removal and follow up in 10 days. 03/11/18 0712 <Electronically signed by Guanakito Palafox MD> Date Guanakito Palafox MD CC: Alexander Gamble MD Signed OPERATIVE REPORT Observed: 03/11/2018 Status: F Source: [place] 7:12 AM [facility] REPOSITORY [facility] Medical Records Department [address] [place] [address] Operative Report 03/10/18 1219 MR#: [id number] Acct: [id number] Name: JUAN KELLY Rep #: [id number] : 1970 47 From: Guanakito Palafox MD PCP: Alexander Gamble MD Status: DEP [facility] Y Location: [facility] Problem List (1) Chronic renal failure, stage 5 Status: Acute Report of Operation Date of Procedure: 03/10/18 Pre-Operative Diagnosis: Stage V chronic renal failure in need of hemodialysis access Post-Operative Diagnosis: Same Surgery/Procedure Performed:: Stage II transposition right upper extremity basilic vein to brachial artery arteriovenous fistula creation with bovine patch flow restrictor Description of Surgical Findings:: Timeout and informed consent was obtained. 47-year-old female was taken to the operating initially underwent monitored anesthesia care but that got converted to a general anesthetic due to the extensiveness of the procedure. The right upper extremity was sterilely prepped and draped. 32 cc of 1/2% lidocaine and 26 cc of 1% lidocaine mixed 50-50 with 0.5% Marcaine was used as a local anesthetic. Ultrasound was used to map the course of the basilic vein. Local was instilled. A longitudinal incision was created. Tedious sharp and blunt dissection was required to get the vein dissected free. Side branches were secured with 3-0 Vicryl ligatures and hemoclips were indicated. A single repair site on the vein was performed with a 6-0 Prolene [id number] suture. The vein was harvested from the antecubital space all the way up to the axilla. [place] that I had good length. The site of the tunnel it was mapped. This elected to position further dissection of the brachial artery which was done with sharp and blunt dissection and circumferential control. Then the tunneler was placed from the distal arm up to the proximal arm. The vein was disconnected at the antecubital space using a 0 Vicryl suture ligature. The vein was then tunneled utilizing the 6 mm tunneler. It had been marked to assure no twisting. The patient received 8000 units of heparin. Peripheral vascular clamps were placed on the brachial artery. An 11 blade was used to make an arteriotomy which was extended with Gardner scissors. End-to-side anastomosis created with a running 7-0 Prolene. Upon release the fistula itself had an absolutely strong pulse and thrill. Unfortunately inspection of the hand revealed that it was pale. Doppler inspection revealed only monophasic flow at the radial and ulnar artery. I then used a 8 x 80 mm portion of bovine patch I trimmed it slightly more narrow and used it to wrap around the very origin of the fistula I used interrupted 6-0 Prolene sutures to secure the circumferential patch and to provide some slight flow restriction. The hand was noted to become than pink. Doppler at the radial and ulnar seem to return to triphasic signal. This was after 3 separate Prolene sutures have been placed to help restrict the flow. The fistula itself however continued to have an excellent thrill and bruit based upon Doppler. I took several minutes inspecting the fistula and inspecting the hand feeling that the flow restriction had done enough to allow for flow distally. The patient then received 30 mg of protamine. The wound was closed in layers with deep layer of interrupted 3-0 Vicryl. FloSeal was placed deep to the wound to assist with hemostasis due to the large area of soft tissue dissection. Skin was then approximated running septic or 4-0 Monocryl. Steri-Strips Telfa and ABDs soft roll and Ramiro wrap applied. Sponge and instrument and needle counts were reported the surgeon be correct. Blood loss was 200 cc. She tolerated procedure well was taken to the recovery area in size condition without apparent complication. Guanakito Palafox M.D., F.A.C.S. Type of Anesthesia:: General Anesthesiologist: Serafin Menendez 03/11/18 0712 <Electronically signed by Guanakito Palafox MD> Date Guanakito Palafox MD CC: Alexander Gamble MD; Guanakito Palafox MD Signed BEDSIDE GLUCOSE Collected: 03/10/2018 Status: F Source: [place] 1:13 PM [facility] REPOSITORY TYPE CODE TESTS RESULT OUT OF REFERENCE UNITS RANGE LAB L501.080 70-110 mg/dL High BEDSIDE GLU 115 Result Comment: MANAGEMENT OF PATIENT CARE PER NURSING PROTOCOL Performed By: #### L501.080 #### [facility] Point of Care [address] [place], [place] [address] CBC-COMPLETE BLOOD CNT Collected: 03/10/2018 Status: F Source: [place] NO DIFF 7:40 AM [facility] REPOSITORY TYPE CODE TESTS RESULT OUT OF [...] MPV 10.3 Performed By: #### L100.0500 #### [facility] [address] [place], [place], [address] BASIC METABOLIC Collected: 03/10/2018 Status: F Source: [place] PROFILE (BMP) 7:40 AM [facility] REPOSITORY TYPE CODE TESTS RESULT OUT OF [...] GAP 12 Performed By: #### L500.2500 #### [facility] [address] [facility]. [place], [place], [address] ,URINE Collected: 03/10/2018 Status: F Source: [place] 7:38 AM [facility] REPOSITORY Order Comment: Has pt arrived? Y TYPE CODE TESTS RESULT OUT OF REFERENCE UNITS RANGE LAB L400.8000 Negative Normal HCGUQUAL Negative Result Comment: Very dilute urine specimens, as indicated by a low specific gravity, may not contain uniforms sales representative levels of hCG. If is still suspected, a first morning urine specimen should be collected 48 hours later and tested. Performed By: #### L400.7600 #### [facility] [address] [facility] [place], [address] PROGRESS Observed: 03/05/2018 Status: COMPLETED Source: [place] 11:56 AM [facility] [place] REPOSITORY HNO ID: [id number] Author: Arvind (Rodrigo) Anibal Service: (none) Author Type: Registered Nurse Type: [...] Please call PCC back with other requirements. Arvind Arellano RN March 05, 2018 11:58 AM PROGRESS Observed: 03/05/2018 Status: COMPLETED Source: [place] 8:55 AM [facility] REPOSITORY HNO ID: [id number] Author: Kannan Narayanan) Demetra Service: (none) Author Type: Physician Type: Progress Notes Filed: 03/05/2018 8:55 AM Note Text: Reviewed. 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 Telecommunications Engineer is certified in counseling and comes every Wed before confucianism to talk with patient Spouse states pt is happier and more talkative after family and staff nuclear medicine technologist visit. Pt got her Mammogram and Pap [...] be considered. Transplant SW is Lisa Loredo [phone]. Informed PCC can call and find out [...] with her recent illnesses. Also Dr. Prieto, water resources project manager told spouse it will take months for pt to recover from all the toxins that were in her body. Pest Technician plan for next outreach: Will follow up one month Signature Arvind Arellano RN February 27, 2018 TC to patient, left message to please call PCC back regarding pt's progress at home Arvind Arellano RN February 27, 2018 2:44 PM SENDYTOLEANNE Observed: 02/27/2018 Status: COMPLETED Source: [place] 12:00 AM [facility] REPOSITORY Patient Outreach (FAMPWS) JUAN KELLY ([id number]) 1970 F TRN Date Time Provider Department 02/27/18 ARVIND ARELLANO (RODRIGO) FAMPWS During your visit today, we recorded the following information about you: Arvind Arellano RN 03/04/2018 4:33 PM Signed PRIMARY [...] 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 YES Spoke to spouse TC to Faribamelissa Loredo, Transplant SW, left message to please [...] 3x/week Sister in law is SW at [facility] and comes over twice a week to talk to patient and spouse. Telecommunications Engineer is certified in counseling and comes every Wed before confucianism to talk with patient Spouse states pt is happier and more talkative after family and staff nuclear medicine technologist visit. Pt got her Mammogram and Pap [...] be considered. Transplant SW is Lisa Loredo [phone]. Informed PCC can call and find out [...] with her recent illnesses. Also Dr. Prieto, water resources project manager told spouse it will take months for pt to recover from all the toxins that were in her body. Pest Technician plan for next outreach: Will follow up one month Signature Arvind Arellano RN February 27, 2018 TC to patient, left message to please call PCC back regarding pt's progress at home Arvind Arellano RN February 27, 2018 2:44 PM Kannan Gamble MD 03/05/2018 8:55 AM Signed Reviewed. Thanks Arvind Arellano RN 03/05/2018 3:35 PM Signed PRIMARY [...] Please call P[facility] back with other requirements. Arvind Arellano RN March 05, 2018 11:58 AM Allergies As of Date: 02/27/2018 Noted Allergy Reaction AUGMENTIN (AMOXICILLIN-POT CLAVUL*07/22/2017 11 - Vomiting BACTRIM (SULFAMETHOXAZOLE-TRIMETH*07/22/2017 14 - Other: See Comments Comments: Chest pain BUSPAR (BUSPIRONE HCL) 10/22/2017 14 - Other: See Comments Comments: Night terrors LASIX (FUROSEMIDE) 07/22/2017 7 - Swelling Date Reviewed: 02/24/2018 Reviewed by: Sherry Philip - Fully Assessed Reason for Visit: Janitorial Tech Chronic Care [2555] Prescriptions as of 02/27/2018 Sig: INSULIN GLARGINE [...] once kailash* CALCIUM ACETATE 667 MG CAPSULE DIRECTOR OF TEACHER EDUCATION-ROSLYN RX 1 MG-60 MG-300 MCG* Problem List As Of Date 02/27/2018 Noted Resolved ESRD (end stage renal disease) (HCC) [N18.6] INVALID FOR* More... Multiple gastric ulcers [K25.9] Anxiety [F41.9] Depression [F32.9] Diabetes mellitus (HCC) [E11.9] Hypertension [I10] Encounter Status:Closed by ARVIND ARELLANO on 03/05/18 GGT Collected: 02/26/2018 Status: F Source: [place] 9:59 AM [facility] REPOSITORY TYPE CODE TESTS RESULT OUT OF RANGE REFERENCE UNITS LAB GGT 6-46 U/L High GGT 93 Performed By: #### GGT, PROL, FSH, TSH, FT4, T3 #### [place] [address] #### EST #### [facility] [address] [place] [address] [phone] PROLACTIN Collected: 02/26/2018 Status: F Source: [place] 9:59 AM [facility] REPOSITORY TYPE CODE TESTS RESULT OUT OF REFERENCE UNITS RANGE LAB PROL 4.5-26.8 ng/mL Prolactin 14.5 Performed By: #### GGT, PROL, FSH, TSH, FT4, T3 #### [place] [address] #### EST #### [place] [address] [phone] FSH Collected: 02/26/2018 Status: F Source: [place] 9:59 AM [facility] REPOSITORY TYPE CODE TESTS RESULT OUT OF RANGE REFERENCE UNITS LAB FSH mU/mL FSH 6.7 Result Comment: Reference range: Follicular: 2-11 Midcycle: 10-30 Luteal: 1-9 Post Lynda: 20-100 Performed By: #### GGT, PROL, FSH, TSH, FT4, T3 #### [place] [address] #### EST #### [facility] [address] [place] [address] [phone] TSH Collected: 02/26/2018 Status: F Source: [place] 9:59 AM [facility] REPOSITORY TYPE CODE TESTS RESULT OUT OF RANGE REFERENCE UNITS LAB TSH 0.400-5.500 uU/mL TSH 3.420 Result Comment: If the patient is , TSH reference range varies by gestational period: First Trimester 0.100-2.500 uU/mL Second Trimester 0.200-3.000 uU/mL Third Trimester 0.300-3.000 uU/mL References: 1. De Groot L, Marcel M, David EK, et al. Management of Thyroid Dysfunction during and : An Endocrine Society Clinical Practice Guideline. J Clin Endocrinol Metab, 2012:97:6398-4045. 2. Tay TAYLOR. Overview of thyroid disease in . UpToDate. 2016. Accessed on August 04, 2015. Performed By: #### GGT, PROL, FSH, TSH, FT4, T3 #### [place] [id number] [place] [phone] #### EST #### [facility] [address] [place] [address] [phone] FREE T4 Collected: 02/26/2018 Status: F Source: [place] 9:59 AM [facility] REPOSITORY TYPE CODE TESTS RESULT OUT OF RANGE REFERENCE UNITS LAB FT4 0.9-1.7 ng/dL Free T4 1.3 Performed By: #### GGT, PROL, FSH, TSH, FT4, T3 #### [place] [phone] #### EST #### [facility] [address] [address] [phone] T3 Collected: 02/26/2018 Status: F Source: [facility] 9:59 AM [facility] REPOSITORY TYPE CODE TESTS RESULT OUT OF RANGE REFERENCE UNITS LAB T3 79-165 ng/dL Low T3 66 Performed By: #### GGT, PROL, FSH, TSH, FT4, T3 #### [place] [phone] #### EST #### [facility] [address] [place] [address] [phone] ESTRONE Collected: 02/26/2018 Status: F Source: [place] 9:59 AM [facility] REPOSITORY TYPE CODE TESTS RESULT OUT OF REFERENCE UNITS RANGE LAB EST pg/mL Estrone 30.9 Result Comment: (NOTE) Females: Pre-menopausal: Early follicular <150.0 pg/mL Pre-menopausal: Late follicular 100.0-250.0 pg/mL Pre-menopausal: Luteal <200.0 pg/mL Post-menopausal 3.0-32.0 pg/mL REFERENCE INTERVAL: Estrone by TMS Access complete set of age- and/or gender-specific reference intervals for this test in the [facility] Test Directory (wunderloop). Test developed and characteristics determined by [facility]. See Compliance Statement B: wunderloop/CS Performed by [facility], [address] [place] [address] [email or web address], Sami Ellison MD, Lab. Director Performed By: #### GGT, PROL, FSH, TSH, FT4, T3 #### [facility] [address] [place] [address] #### EST #### [facility] [address] [place] [address] [phone] PROGRESS Observed: 02/26/2018 Status: COMPLETED Source: [place] 9:41 AM [facility] REPOSITORY HNO ID: [id number] Author: Jodi Garcia Rdms Service: (none) Author Type: (none) Type: Progress Notes Filed: 02/26/2018 9:42 AM Note Text: Radiology Service Progress Note PATIENT NAME: Juan Kelly DATE OF SERVICE: February 26, 2018 [...] RIGHT UPPER Observed: 02/26/2018 Status: F Source: [facility] 9:40 AM [facility] REPOSITORY * * *Final Report* * * [...] Small nonobstructing stones in the RIGHT kidney Pharmacology Professor: PSYCHIATRICB Transcribe Date/Time: Feb 26 2018 1:24P Dictated by : MARTINA REDD DO This examination was interpreted and the report reviewed and electronically signed by: MARTINA REDD DO on Feb 26 2018 1:27PM EST [id number] CNCO Observed: 02/24/2018 Status: COMPLETED Source: [place] 10:54 AM [facility] [place] REPOSITORY HNO ID: [id number] Author: Mammography Coordinator Service: (none) Author Type: Physician Type: Letter Filed: 02/25/2018 11:31 PM Note Text: February 24, 2018 PID: [id number] Juan Kelly [address] [facility] [address] [place] [address] Dear Ms. Kelly, We are pleased to [...] report will be kept on file at [facility] as part of your permanent medical record and are available for your continuing care. Thank you for allowing us to help in meeting your health care needs. Sincerely, Dr. Hairston Interpreting Radiologist [facility] (Normal over 40[facility] SCREENING Observed: 02/24/2018 Status: F Source: [place] 10:28 AM [facility] REPOSITORY * * *Final Report* * * DATE OF EXAM: Feb 24 2018 10:28AM [facility] - [facility] SCREENING / PROCEDURE REASON: Screening mammogram, encounter for * * * * Physician Interpretation * * * * RESULT: #[id number] - KASH SCREENING BILATERAL DIGITAL SCREENING MAMMOGRAM WITH CAD: [...] 1 year screening mammogram is recommended. Clay sanz/jeffy:02/24/2018 10:54:41 Taxi Proprietor(s): RT Catrachito(Dick)(M), [facility] letter sent: Normal over [...] Health, Family Medicine, and Medical/Surgical Oncology, the [facility] has carefully reviewed the data and [...] their providers when to stop screening mammograms. Pharmacology Professor: Jeffy Transcribe Date/Time: Feb 24 2018 10:02A Dictated by: CLAY HAIRSTON MD This examination was interpreted and the report reviewed and electronically signed by: CLAY HAIRSTON MD on Feb 24 2018 10:54AM EST [id number] HPV W/GENOTYPE Collected: 02/24/2018 Status: F Source: [place] 9:42 [facility] REPOSITORY TYPE CODE TESTS RESULT OUT [...] developed and its performance characteristics determined by [facility] [place] ([facility]). It has not been cleared or approved by the FDA. [facility] is regulated under CLIA as qualified to perform high-complexity testing. This test is used for clinical purposes. It should not be regarded as inv estigational or for research. Performed By: #### HPVHRR #### [facility] [address] [place], [place] [address] CYTOLOGY Observed: 02/24/2018 Status: C Source: [place] 9:42 [facility] REPOSITORY ADDITIONAL PROCEDURES PRESENT ---Abnormal Pap Test - Epithelial Cell Abnormality--- Specimen originated from [facility] Specimen #: [id number] Submitting Physician: SHERRY PHILIP M.D. (WO10) SPECIMEN [...] from every slide are reviewed by a vocational rehab consultant. Tai Torrez M.D. (Electronic Signature) ADDITIONAL PROCEDURE(S) HUMAN PAPILLOMA VIRUS Date Ordered: 02/25/2018 Date Reported: 02/26/2018 Procedure Results and Interpretation Positive for HPV DNA high risk type 16 by PCR(*) Negative for HPV DNA high risk type 18 by PCR. Negative for HPV DNA high risk types: 31,33,35,39,45,51,52,56,58,59,66,68 by PCR. This test was developed and its performance characteristics determined by [facility] [place] ([facility]). It has not been cleared or approved by the FDA. [facility] is regulated under CLIA as qualified to perform high-complexity testing. This test is used for clinical purposes. It should not be regarded as investigational or for research. CLINICAL DATA ROUTINE EXAM, HPV Testing: Yes, automatic HPV patients over 30 Date of Last Menstrual Period: Injection STAINS A: CERVICAL, SCREENING, FLUID THIN PREP SENIOR WEB ENGINEER Date of Report: 02/26/2018 Date of Procedure: 02/24/2018 Date of Receipt: 02/25/2018 Submitted by: SHERRY PHILIP M.D. (WO10) Location: [facility] Diagnostic interpretation performed at [facility], [address] [place] [address]. The Pap Smear is a screening test for cervical cancer. False negative results occur with all screening tests, emphasizing the need for rescreening at recommended intervals, and clinical correlation. PROGRESS Observed: 02/24/2018 Status: COMPLETED Source: [place] 9:13 AM [facility] REPOSITORY HNO ID: [id number] Author: Sherry Philip Service: (none) Author Type: Physician Type: Progress Notes Filed: 02/24/2018 9:42 AM Note Text: Juan Kelly is a 47 year old who [...] ESRD (end stage renal disease) on dialysis ([facility]) 03/2017 Dr. Prieto, [facility] - Hypertension - Insomnia - Multiple gastric ulcers - Scoliosis - Tobacco use PAST SURGICAL HISTORY Procedure Laterality Date - DRAINAGE OF PILONIDAL CYST - EXCIS BARTHOLIN GLAND/CYST - PAST SURGICAL HISTORY OF 2018 Removal of peritoneal dialysis due to melina infection - PAST SURGICAL HISTORY OF Right 2018 HD fistula, right arm - PD CATHETER ANCHOR BELT - REMOVAL OF GALLBLADDER 1995 lap michaela FAMILY HISTORY Problem Relation Age [...] external genitalia normal, normal Bartholin's glands, urethra, Faxon's glands, no vulvar lesions, no cervical lesions, [...] MD CNOV Observed: 02/24/2018 Status: COMPLETED Source: [place] 9:05 AM [facility] REPOSITORY Office Visit (WOOB) JUAN KELLY ([id number]) 1970 F TRN Date Time Provider Department 02/24/18 9:05 AM SHERRY PHILIP During your visit today, we recorded the following information about you: Blood pressure Weight 128/76 79.4 kg Sherry Philip MD 02/24/2018 9:42 AM Signed Juan Kelly is a 47 year old who [...] ESRD (end stage renal disease) on dialysis ([facility]) 03/2017 Dr. Prieto, [facility] - Hypertension - Insomnia - Multiple gastric ulcers - Scoliosis - Tobacco use PAST SURGICAL HISTORY Procedure Laterality Date - DRAINAGE OF PILONIDAL CYST - EXCIS BARTHOLIN GLAND/CYST - PAST SURGICAL HISTORY OF 2018 Removal of peritoneal dialysis due to melina infection - PAST SURGICAL HISTORY OF Right 2018 HD fistula, right arm - PD CATHETER ANCHOR BELT - REMOVAL OF GALLBLADDER 1995 lap michaela FAMILY HISTORY Problem Relation Age [...] external genitalia normal, normal Bartholin's glands, urethra, Faxon's glands, no vulvar lesions, no cervical lesions, [...] Sherry Philip MD Referring Provider: KANNAN GAMBLE) [[id number]] Allergies As of Date: 02/24/2018 Noted Allergy [...] breast cancer [Z12.31] Order(s):PAP FLUID CERVICAL SCREENING [[id number]] Order #: [id number] KASH SCREENING [[id number]] Order #: [id number] FUTURE FSH BLD [SQFSH] Order #: [id number] FUTURE ESTRONE BLD [SQEST] Order #: [id number] FUTURE PROLACTIN BLD [SQPROL] Order #: [id number] FUTURE Prescriptions as of 02/24/2018 Sig: INSULIN [...] once kailash* CALCIUM ACETATE 667 MG CAPSULE DIRECTOR OF TEACHER EDUCATION-ROSLYN RX 1 MG-60 MG-300 MCG* Problem List [...] Disposition History Recorded Encounter Status:Closed by SHERRY PHILPI MD on 02/24/18 SURGERY VISIT REPORT Observed: 02/19/2018 Status: F Source: [place] 10:08 AM [facility] REPOSITORY [facility] [address] [place] [address] OFFICE VISIT Date of Service: 02/19/18 MR#: [id number] Acct: [id number] Name: JUAN KELLY Rep #: [id number] : 1970 Provider: Guanakito Palafox MD Age/Sex: 47/F Location: [facility] [address] Status: Signed Intake Intake Visit Reasons: PO Fistula Placement 01/27 Chief Complaint: post op fistula creation Special Education Director Required: No Is patient in pain?: No [...] She was seen initially postoperatively by physician diver assistant Laura Jasso. HPI HPI HPI: JUAN KELLY, is a 47 F who presents [...] with a peritoneal dialysis catheter placed at [facility]. Apparently she then developed a yeast infection. She thinks for about 4 weeks she has had a right internal jugular tunneled dialysis catheter that was placed at [facility]. The details regarding her hospitalization there are [...] a previous vein mapping procedure performed at [facility] on May 09, 2017. But this preceded [...] setting. Guanakito Palafox M.D., F.A.C.S. CC: Dr. Winston Prieto and Dr. Kannan Gamble Coding Level of Care Code Global Post Op Diagnoses Chronic renal failure, stage 5 N18.5 02/19/18 1008 <Electronically signed by Guanakito Palafox MD> Date Guanakito Palafox MD Cosigner Signature: Date (if applicable) CC: Alexander Gamble MD ALBUMIN/CREAT RATIO Collected: 02/12/2018 Status: F Source: [place] 1:06 PM [facility] REPOSITORY TYPE CODE TESTS RESULT OUT OF REFERENCE UNITS RANGE LAB UCRR 20-300 mg/dL 27.4 Creatinine,Ur ine,Ran LAB UALBR 0.0-23.0 mg/L >4400.0 High Albumin Urine Random LAB UALBCR 0-30 mg/g Not Albumin/Creat calculated Ratio Performed By: #### UACR #### [facility] [address] [place], [place] [address] COMP METABOLIC PANEL Collected: 02/12/2018 Status: F Source: [place] 12:54 PM [facility] REPOSITORY TYPE CODE TESTS RESULT [...] mg/dL Glucose High 311 Result Comment: The [place] Diabetes Association (ADA) provides guidance for cutoff [...] Standards of Medical Care in Diabetes 2016, [place] Diabetes Association. Diabetes Care. 2016.39(Suppl 1). LAB [...] LIPNF, TSH, FT4, T3, HBA1C, MICRO #### [facility] [address] [place], [place] [address] LIPID PANEL, NONFAST Collected: 02/12/2018 Status: F Source: [place] 12:54 PM [facility] REPOSITORY TYPE CODE TESTS RESULT [...] Desk Reference: National Heart, Lung, and Blood [place]. National Institutes of Health. 2001: NIH Publication No. 01-3305. 2. An International Atherosclerosis Society position paper: global recommendations for the management of dyslipidemia: executive summary, Atherosclerosis. 2014: 232(2):410-413. Performed By: #### CMP, LIPNF, TSH, FT4, T3, HBA1C, MICRO #### [facility] [address] [place], [place] [address] TSH Collected: 02/12/2018 Status: F Source: [place] 12:54 PM [facility] REPOSITORY TYPE CODE TESTS RESULT OUT OF [...] Clinical Practice Guideline. J Clin Endocrinol Metab, 2012:97:2509-0009. 2. Tay TAYLOR. Overview of thyroid disease in . UpToDate. 2016. Accessed on August 04, 2015. Performed By: #### CMP, LIPNF, TSH, FT4, T3, HBA1C, MICRO #### [facility] [address] [place], [place] [address] FREE T4 Collected: 02/12/2018 Status: F Source: [place] 12:54 PM [facility] REPOSITORY TYPE CODE TESTS RESULT OUT OF RANGE REFERENCE UNITS LAB FT4 0.9-1.7 ng/dL Free T4 1.2 Performed By: #### CMP, LIPNF, TSH, FT4, T3, HBA1C, MICRO #### [facility] [address] [place] [id number] T3 Collected: 02/12/2018 Status: F Source: [facility] 12:54 PM [facility] REPOSITORY TYPE CODE TESTS RESULT OUT OF RANGE REFERENCE UNITS LAB T3 79-165 ng/dL Low T3 62 Performed By: #### CMP, LIPNF, TSH, FT4, T3, HBA1C, MICRO #### [facility] [address] [place] [address] HEMOGLOBIN A1C Collected: 02/12/2018 Status: F Source: [place] 12:54 PM [facility] REPOSITORY TYPE CODE TESTS RESULT OUT OF REFERENCE UNITS RANGE LAB HGBA1C 4.3-5.6 % High Hemoglobin A1c 7.5 Result Comment: [place] Diabetes Association guidelines indicate that patients with HgbA1c in the range 5.7-6.4% are at increased risk for development of diabetes, and intervention by lifestyle modification may be beneficial. HgbA1c greater or equal to 6.5% is considered diagnostic of diabetes. LAB HBA0 mg/dL Est. Average Glucose 169 Result Comment: eAG: (Estimated average glucose) is a calculated value from HgbA1c and is uniforms sales representative of the average blood glucose level in the last 2-3 month period. Performed By: #### CMP, LIPNF, TSH, FT4, T3, HBA1C, MICRO #### [facility] [address] [place] [address] TPO ANTIBODY Collected: 02/12/2018 Status: F Source: [place] 12:54 PM [facility] REPOSITORY TYPE CODE TESTS RESULT OUT OF REFERENCE UNITS RANGE LAB MICRO <5.6 IU/mL TPO Antibody <1.0 Performed By: #### CMP, LIPNF, TSH, FT4, T3, HBA1C, MICRO #### [facility] [address] [place] [address] PROGRESS Observed: 02/12/2018 Status: COMPLETED Source: [place] 11:33 AM [facility] REPOSITORY HNO ID: [id number] Author: Kannan Narayanan) Demetra Service: (none) Author Type: Physician Type: Progress Notes Filed: 02/14/2018 11:26 AM Note Text: Chief Complaint Patient presents with: 4 week follow up Establish Care HPI Juan Kelly is a 47 year old female [...] the past, would have been done at [facility]. Asking we request labs instead of updating today. Has appointment scheduled on 02/24 for pap smear and mammogram with Dr. Sherry Rankin. No indication for colon cancer screening. Past medical history, appointments, medications, allergies reviewed and updated. Previous Medical History PAST MEDICAL HISTORY Diagnosis Date - Anxiety - Cellulitis - Depression - Diabetes mellitus (HCC) - ESRD (end stage renal disease) on dialysis ([facility]) 03/2017 Dr. Prieto, [facility] - Multiple gastric ulcers - Scoliosis [...] inpn Sliding Scale:<60 >400 Call MD0-150 0 [id number] 5 [id number] 7 Hkxxd644- 300 10 Rjafu935-232 12 Lybfh256-655 15 Units hydrocodone/acetaminophen (NORCO ORAL) Take by [...] Friday, Friday, and Friday. Infuse after dialysis DIRECTOR OF TEACHER EDUCATION-ROSLYN RX tablet No current facility-administered medications on [...] Abs Lymph 1.00 - 4.00 k/uL 1.04 Coffey% % 11.5 Abs Coffey <0.87 k/uL 1.29 (H) Eosin% % 0.8 Abs Eosin <0.46 k/uL 0.09 Baso% % 0.4 Abs Baso <0.11 k/uL 0.05 Nucleated Reds 0 /100 WBC 0.0 Absolute nRBC <0.01 k/uL <0.01 <0.01 Diff Type Auto Diff Protein, Total 6.3 - 8.0 g/dL 7.3 6.9 Test reordered by [facility]. Albumin 3.9 - 4.9 g/dL 3.7 (L) 2.6 (L) Test reordered by [facility]. Calcium 8.5 - 10.2 mg/dL 8.4 (L) 8.5 Test reordered by [facility]. Bilirubin, Total 0.2 - 1.3 mg/dL 0.2 0.2 Test reordered by [facility]. Alkaline Phosphatase 34 - 123 U/L 128 (H) 208 (H) Test reordered by [facility]. AST 13 - 35 U/L 24 24 Test reordered by [facility]. Glucose 74 - 99 mg/dL 508 (H) 65 (L) Test reordered by [facility]. BUN 7 - 21 mg/dL 37 (H) 48 (H) Test reordered by [facility]. Creatinine 0.58 - 0.96 mg/dL 5.03 (H) 9.38 (H) Test reordered by [facility]. Sodium 136 - 144 mmol/L 134 (L) 136 Test reordered by [facility]. Potassium 3.7 - 5.1 mmol/L 4.5 5.2 (H) Test reordered by [facility]. Chloride 97 - 105 mmol/L 89 (L) 90 (L) Test reordered by [facility]. CO2 22 - 30 mmol/L 29 19 (L) Test reordered by [facility]. Anion Gap 9 - 18 mmol/L 16 27 (H) Test reordered by [facility]. ALT 7 - 38 U/L 30 30 Test reordered by [facility]. eGFR- 11 5 Test reordered by [facility]. eGFR-All Other Races . 9 5 Test reordered by [facility]. eGFR-Pediatric Factor Test reordered by [facility]. ASSESSMENT/PLAN: 1. Type 2 diabetes mellitus with [...] MD CNOV Observed: 02/12/2018 Status: COMPLETED Source: [place] 11:20 AM [facility] REPOSITORY Office Visit (FAMPWS) JUAN KELLY ([id number]) 1970 F TRN Date Time Provider Department 02/12/18 11:20 AM KANNAN GAMBLE) FAMPWS During your visit today, we recorded the following information about you: Temperature Pulse Respiration Blood pressure 97.8 degrees 72/minute 16/minute 130/72 Weight 78.5 kg Kannan Gamble MD 02/14/2018 11:26 AM Signed Chief Complaint Patient presents with: 4 week follow up Establish Care HPI Juan Kelly is a 47 year old female [...] the past, would have been done at [facility]. Asking we request labs instead of updating today. Has appointment scheduled on 02/24 for pap smear and mammogram with Dr. Sherry Rankin. No indication for colon cancer screening. Past medical history, appointments, medications, allergies reviewed and updated. Previous Medical History PAST MEDICAL HISTORY Diagnosis Date - Anxiety - Cellulitis - Depression - Diabetes mellitus (HCC) - ESRD (end stage renal disease) on dialysis ([facility]) 03/2017 Dr. Prieto, [facility] - Multiple gastric ulcers - Scoliosis [...] inpn Sliding Scale:<60 >400 Call MD0-150 0 [id number] 5 Pwrbk522-788 7 Mdnif955-199 10 Lybpn395-406 12 Tmnvy627-437 15 Units hydrocodone/acetaminophen (NORCO ORAL) Take by [...] Friday, Friday, and Friday. Infuse after dialysis DIRECTOR OF TEACHER EDUCATION-ROSLYN RX tablet No current facility-administered medications on [...] Abs Lymph 1.00 - 4.00 k/uL 1.04 Coffey% % 11.5 Abs Coffey <0.87 k/uL 1.29 (H) Eosin% % 0.8 Abs Eosin <0.46 k/uL 0.09 Baso% % 0.4 Abs Baso <0.11 k/uL 0.05 Nucleated Reds 0 /100 WBC 0.0 Absolute nRBC <0.01 k/uL <0.01 <0.01 Diff Type Auto Diff Protein, Total 6.3 - 8.0 g/dL 7.3 6.9 Test reordered by [facility]. Albumin 3.9 - 4.9 g/dL 3.7 (L) 2.6 (L) Test reordered by [facility]. Calcium 8.5 - 10.2 mg/dL 8.4 (L) 8.5 Test reordered by [facility]. Bilirubin, Total 0.2 - 1.3 mg/dL 0.2 0.2 Test reordered by [facility]. Alkaline Phosphatase 34 - 123 U/L 128 (H) 208 (H) Test reordered by [facility]. AST 13 - 35 U/L 24 24 Test reordered by [facility]. Glucose 74 - 99 mg/dL 508 (H) 65 (L) Test reordered by [facility]. BUN 7 - 21 mg/dL 37 (H) 48 (H) Test reordered by [facility]. Creatinine 0.58 - 0.96 mg/dL 5.03 (H) 9.38 (H) Test reordered by [facility]. Sodium 136 - 144 mmol/L 134 (L) 136 Test reordered by [facility]. Potassium 3.7 - 5.1 mmol/L 4.5 5.2 (H) Test reordered by [facility]. Chloride 97 - 105 mmol/L 89 (L) 90 (L) Test reordered by [facility]. CO2 22 - 30 mmol/L 29 19 (L) Test reordered by [facility]. Anion Gap 9 - 18 mmol/L 16 27 (H) Test reordered by [facility]. ALT 7 - 38 U/L 30 30 Test reordered by [facility]. eGFR- 11 5 Test reordered by [facility]. eGFR-All Other Races . 9 5 Test reordered by [facility]. eGFR-Pediatric Factor Test reordered by [facility]. ASSESSMENT/PLAN: 1. Type 2 diabetes mellitus with chronic kidney disease on chronic dialysis, with long-term current use of insulin ([facility]) - ICD9: 250.40, 585.9, V45.11, V58.67, ICD10: [...] Kannan Gamble MD Referring Provider: KANNAN GAMBLE) [[id number]] Allergies As of Date: 02/12/2018 Noted Allergy [...] with long-term current use of insulin (HCC) [E11.22, N18.6, Z99.2, Z79.4] Other Visit Diagnoses:Essential hypertension [I10] Moderate episode of recurrent major depressive disorder (HCC) [F33.1] Anxiety [F41.9] ESRD (end stage renal disease) (HCC) [N18.6] Weakness of both lower extremities [R29.898] Order(s):COMP METABOLIC PANEL [SQCMP] Order #: [id number] FUTURE HGB A1C [PDDTR8D] Order #: [id number] FUTURE ALBUMIN/CREAT RATIO RND UR [SQUACR] Order #: [id number] FUTURE LIPID PANEL, NONFASTING [SQLIPNF] Order #: [id number] FUTURE Prescriptions as of 02/12/2018 Sig: ACETAMINOPHEN [...] d* Patient not taking: Reported on 02/12/2018 DIRECTOR OF TEACHER EDUCATION-ROSLYN RX 1 MG-60 MG-300 MCG* Problem List As Of Date 02/12/2018 Noted Resolved ESRD (end stage renal disease) ([facility]) [N18.6] INVALID FOR* More... Multiple gastric ulcers [K25.9] Anxiety [F41.9] Depression [F32.9] Diabetes mellitus ([facility]) [E11.9] Hypertension [I10] Medications Discontinued During This [...] 02/14/18 PROGRESS Observed: 02/06/2018 Status: COMPLETED Source: [place] 5:14 PM [facility] REPOSITORY HNO ID: [id number] Author: Kannan Narayanan) Demetra Service: (none) Author Type: Physician Type: Progress Notes Filed: 02/06/2018 5:14 PM Note Text: Glad to hear she is improving. Thanks. PROGRESS Observed: 02/06/2018 Status: COMPLETED Source: [place] 4:42 PM [facility] REPOSITORY HNO ID: [id number] Author: Arvind Escalante) Anibal Service: (none) Author Type: Registered Nurse Type: [...] getting stronger but still weak and fatigued. Pest Technician plan for next outreach: Will follow up 3 weeks Signature Arvind Arellano RN February 06, 2018 CNPTOUTREACH Observed: 02/06/2018 Status: COMPLETED Source: [place] 12:00 AM [facility] REPOSITORY Patient Outreach (FAMPWS) JUAN KELLY ([id number]) 1970 F TRN Date Time Provider Department 02/06/18 ARVIND ARELLANO (RODRIGO) YIFANWS During your visit today, we recorded the following information about you: Arvind Arellano RN 02/06/2018 4:43 PM Signed TRANSITION CARE MANAGEMENT (TCM) FOLLOW-UP NOTE Provider Action/FYI FYI Patient identified by name and date of : YES Spoke to spouse Summary: TC to spouse, states pt is having one of the best days she's had in a long time. Working with PT/OT and getting stronger but still weak and fatigued. Pest Technician plan for next outreach: Will follow up 3 weeks Signature Arvind Arellano RN February 06, 2018 Kannan Gamble [...] Dempsey - Fully Assessed Reason for Visit: [facility] Follow Up [2396] Cmt: TCM F/U Prescriptions as of 02/06/2018 [...] 1,000 MG INTRAVENO* Inject 1,000 mg intravenously* DIRECTOR OF TEACHER EDUCATION-ROSLYN RX 1 MG-60 MG-300 MCG* Problem List As Of Date 02/06/2018 Noted Resolved ESRD (end stage renal disease) (HCC) [N18.6] INVALID FOR* More... Multiple gastric ulcers [K25.9] Anxiety [F41.9] Depression [F32.9] Encounter Status:Closed by ARVIND ARELLANO on 02/11/18 SURGERY VISIT REPORT Observed: 02/03/2018 Status: F Source: [place] 3:26 PM [facility] REPOSITORY [facility] [address] [place] [address] OFFICE VISIT Date of Service: 02/03/18 MR#: [id number] Acct: [id number] Name: JUAN KELLY Rep #: [id number] : 1970 Provider: Laura Jasso PA-C Age/Sex: 47/F Location: [facility] [address] [address] Status: Signed Intake Vital Signs01/28/18 Body Mass Index (BMI) 27.0 Intake Visit Reasons: PO Fistula Placment RC 01/27 Chief Complaint: discuss fistula creation Special Education Director Required: No Is patient in pain?: No [...] signed by Laura Jasso PA-C> Date Laura Hilario Signature: Date (if applicable) CC: Alexander Gamble MD PROGRESS Observed: 01/29/2018 Status: COMPLETED Source: [place] 5:04 PM [facility] REPOSITORY HNO ID: [id number] Author: Arvind Escalante) Anibal Service: (none) Author Type: Registered Nurse Type: Progress Notes Filed: 01/30/2018 2:08 PM Note Text: PRIMARY CARE COORDINATION FOLLOW-UP NOTE Provider Action/FYI FYI Patient identified by name and date of . YES Spoke to Jefferson at [facility] in [place] Concerns: States spouse was asking them when they delivered the hospital bed if pt could have a mattress topper or air mattress. Informed PCC spoke to spouse today and he stated pt has no open wound and they are applying barrier cream so insurance isn't going to pay for those, Jefferson verbalized agreement. Pest Technician plan for next outreach: Will follow up one week Signature Arvind Arellano RN January 29, 2018 PROGRESS Observed: 01/29/2018 Status: COMPLETED Source: [place] 12:47 PM [facility] REPOSITORY HNO ID: [id number] Author: Kannan Narayanan) Demetra Service: (none) Author Type: Physician Type: Progress Notes Filed: 01/29/2018 12:47 PM Note Text: rx approved. Continue home oxygen and abx as recommended. PROGRESS Observed: 01/29/2018 Status: COMPLETED Source: [place] 11:50 AM [facility] REPOSITORY HNO ID: [id number] Author: Arvind Escalante) Anibal Service: (none) Author Type: Registered Nurse Type: [...] wearing 2L PRN Pt is going to [place] today for a new implanted port in chest. Still notes reddened intact skin on buttocks, applying barrier cream Patient phones requesting refills as follows: Pending Prescriptions Disp Refills HYDROXYZINE PAMOATE 50 MG CAPSULE 30 capsule 1 Sig: Take 1 capsule by mouth four times daily as needed for Anxiety. RYAN: No Please review and advise. Pest Technician plan for next outreach: Will follow up one week Signature Arvind Arellano RN January 29, 2018 PORTIA Observed: 01/29/2018 Status: COMPLETED Source: [place] 12:00 AM [facility] REPOSITORY Patient Outreach (FAMPWS) JUAN KELLY ([id number]) 1970 F TRN Date Time Provider Department 01/29/18 ARVIND ARELLANO (RN) RENETTA During your visit today, we recorded the following information about you: Arvind Arellano RN 01/29/2018 12:01 PM Signed TRANSITION [...] wearing 2L PRN Pt is going to [place] today for a new implanted port in chest. Still notes reddened intact skin on buttocks, applying barrier cream Patient phones requesting refills as follows: Pending Prescriptions Disp Refills HYDROXYZINE PAMOATE 50 MG CAPSULE 30 capsule 1 Sig: Take 1 capsule by mouth four times daily as needed for Anxiety. RYAN: No Please review and advise. Pest Technician plan for next outreach: Will follow up one week Signature Arvind Arellano RN January 29, 2018 Kannan Gamble MD 01/29/2018 12:47 PM Signed rx approved. Continue home oxygen and abx as recommended. Arvind Arellano RN 01/30/2018 2:08 PM Signed PRIMARY CARE COORDINATION FOLLOW-UP NOTE Provider Action/FYI FYI Patient identified by name and date of . YES Spoke to Jefferson at [facility] in [place] Concerns: States spouse was asking them when they delivered the hospital bed if pt could have a mattress topper or air mattress. Informed PCC spoke to spouse today and he stated pt has no open wound and they are applying barrier cream so insurance isn't going to pay for those, Jefferson verbalized agreement. Pest Technician plan for next outreach: Will follow up one week Signature Arvind Arellano RN January 29, 2018 Allergies As of Date: 01/29/2018 Noted Allergy Reaction AUGMENTIN (AMOXICILLIN-POT CLAVUL*07/22/2017 11 - Vomiting BACTRIM (SULFAMETHOXAZOLE-TRIMETH*07/22/2017 14 - Other: See Comments Comments: Chest pain BUSPAR (BUSPIRONE HCL) 10/22/2017 14 - Other: See Comments Comments: Night terrors LASIX (FUROSEMIDE) 07/22/2017 7 - Swelling Date Reviewed: 01/27/2018 Reviewed by: Sharlene Thornton (Haydee) HAYDEE Dempsey - Fully Assessed Reason for Visit: [facility] Follow Up [0918] Primary Visit Diagnosis:Anxiety [F41.9] Order(s):hydrOXYzine pamoate (VISTARIL) [...] 1,000 MG INTRAVENO* Inject 1,000 mg intravenously* DIRECTOR OF TEACHER EDUCATION-ROSLYN RX 1 MG-60 MG-300 MCG* Problem List As Of Date 01/29/2018 Noted Resolved ESRD (end stage renal disease) ([facility]) [N18.6] INVALID FOR* More... Multiple gastric ulcers [...] is not on file. Encounter Status:Closed by ARVIND ARELLANO on 01/30/18 DISCHARGE INSTRUCTION Observed: 01/28/2018 Status: F Source: [place] 9:00 AM [facility] REPOSITORY [facility] Medical Records Department [address] [place] [address] Instructions for Home/Discharge Instructions 01/27/18917 MR#: [id number] Acct: [id number] Name: JUAN KELLY Rep #: [id number] : 1970 47 From: Guanakito Palafox MD PCP: Alexander Gamble MD Status: DEP [facility] Discharge Diet: Renal Diet Discharge Activity: May [...] mg PO DAILY 12/06/15 Hydrocodone Bitart/Apap 5-325 [Mentone 5MG-325MG] 1 tablet PO Q6H PRN PRN 2 Days #5 tablet 01/27/18 The following prescriptions were given: Hydrocodone Bitart/Apap 5-325 [Mentone 5MG-325MG] 1 tablet PO Q6H PRN PRN 2 Days #5 tablet PRN Reason: Pain Primary Care Physician: Alexander Gamble MD [Primary Care Provider] - Test Results: Test results from this visit will be discussed in further detail at your follow-up appointment, if applicable. Please Follow Up With: Guanakito Palafox MD - [phone] When: Call to make an appointment for suture removal and follow up in 1 week. 01/28/18 0900 <Electronically signed by Guanakito Palafox MD> Date Guanakito Palafox MD CC: Alexander Gamble MD OPERATIVE REPORT Observed: 01/28/2018 Status: F Source: [place] 9:00 AM [facility] Medical Records Department [address] [place] [address] Operative Report 01/27/18918 MR#: [id number] Acct: [id number] Name: JUAN KELLY Rep #: [id number] : 1970 47 From: Guanakito Palafox MD PCP: Alexander Gamble MD Status: [facility] Location: [facility] Problem List (1) Chronic renal failure, stage [...] [place] 01/28/18 0900 <Electronically signed by Guanakito Paalfox MD> Date Guanakito Palafox MD CC: Alexander Gamble MD; Guanakito Palafox MD Signed PROGRESS Observed: 01/27/2018 Status: COMPLETED Source: [place] 1:58 PM [facility] REPOSITORY [facility] ID: [id number] Author: Arvind (Rn) Anibal Service: (none) Author Type: Registered Nurse Type: Progress Notes Filed: 01/27/2018 2:15 PM Note Text: TRANSITION CARE MANAGEMENT (TCM) FOLLOW-UP NOTE Provider Action/FYI FYI Informed PATTIE Jackman of [employer] for O2 Patient identified by name and date of : YES Spoke to spouse Summary: TC to spouse, informed [employer] in [place] is working on getting patient her hosp bed and W/C. Asking if they want to use the same company for oxygen, states yes. States he is at [facility] getting patient's ATB. Informed PCC will call pt on Friday regarding how her cellulitis is looking. Spouse left message, states they were getting oxygen from [employer]. Pt was in to see Augustina BLANKENSHIP today and she is going to order Oxygen PRN Pest Technician plan for next outreach: Will follow up one week Signature Arvind Arellano RN January 27, 2018 PROGRESS Observed: 01/27/2018 Status: COMPLETED Source: [place] 11:14 AM [facility] [facility] REPOSITORY HNO ID: [id number] Author: Augustina (Local Driver) Podlogar Service: (none) Author Type: Nurse Practitioner [...] had US showed no DVT. Was at [facility] this morning for fistula placement in right [...] ESRD (end stage renal disease) on dialysis ([facility]) 03/2017 Dr. Prieto, [facility] - Multiple gastric ulcers - Scoliosis [...] inpn Sliding Scale:<60 >400 Call MD0-150 0 Uajvt628-677 5 Ybdya768-636 7 Ejnvf501- 300 10 Wduxu922-937 12 Edfat442-442 15 Units hydrocodone/acetaminophen (NORCO ORAL) Take by [...] Friday, Friday, and Friday. Infuse after dialysis DIRECTOR OF TEACHER EDUCATION-ROSLYN RX tablet cephALEXin (KEFLEX) 250 mg capsule [...] order - follow-up as scheduled with Dr. Demetra Vaughn APRN.SENDY Prescription instructions reviewed with patient as applicable. Patient advised if symptoms do not improve or if symptoms worsen sooner, to contact their primary care physician. Potential red flag symptoms discussed with the patient. Reviewed appropriate action plan to take if red flag symptoms occur. Patient agreeable to treatment plan. CNOV Observed: 01/27/2018 Status: COMPLETED Source: [place] 11:00 AM [facility] REPOSITORY [facility] JUAN [facility] ([id number]) 1970 F TRN Date Time Provider Department 01/27/18 11:00 AM AUGUSTINA VAUGHN (SENDY) R[place] During your visit today, we recorded the following information about you: Temperature Pulse Respiration Blood pressure 98.3 degrees 104/minute 16/minute 130/70 Weight 80.3 kg Augustina Vaughn APRN.CNP 01/27/2018 2:18 PM Signed 01/27/2018 Patient presents with: Pain: lft arm pain , red , swollen and warm also per Guanakito Palafox May need home 0xygen SUBJECTIVE: This is a 47 year old that is here today for Above Complaints. Left arm has been red and swollen for about 1 month. Reports had US showed no DVT. Was at [facility] this morning for fistula placement in right [...] - Cellulitis - Depression - Diabetes mellitus ([facility]) - ESRD (end stage renal disease) on dialysis ([facility]) 03/[address] [facility] - Multiple gastric ulcers - Scoliosis [...] inpn Sliding Scale:<60 >400 Call MD0-150 0 Jzncm228-159 5 Bcmtt615-470 7 Yosnk128-300 10 Ursmv587-836 12 Xdzho848-886 15 Units hydrocodone/acetaminophen (NORCO ORAL) Take by [...] Friday, Friday, and Friday. Infuse after dialysis DIRECTOR OF TEACHER EDUCATION-ROSLYN RX tablet cephALEXin (KEFLEX) 250 mg capsule [...] order - follow-up as scheduled with Dr. Demetra Jackman Podlogar, STAFF RESPIRATORY THERAPIST.CAFETERIA SUPERVISOR Prescription instructions reviewed with patient as applicable. Patient advised if symptoms do not improve or if symptoms worsen sooner, to contact their primary care physician. Potential red flag symptoms discussed with the patient. Reviewed appropriate action plan to take if red flag symptoms occur. Patient agreeable to treatment plan. Augustina Vaughn, PAIGE.SENDY 01/27/2018 12:01 PM Addendum If you develop fever, chills, red streaking, Increased redness and swelling go to ER Call with company name to fax over oxygen order ( let me know Augustina Podlogar) Referring Provider: SELF [200] Allergies As of Date: 01/27/2018 Noted Allergy Reaction AUGMENTIN (AMOXICILLIN-POT CLAVUL*07/22/2017 11 - Vomiting BACTRIM (SULFAMETHOXAZOLE-TRIMETH*07/22/2017 14 - Other: See Comments Comments: Chest pain BUSPAR (BUSPIRONE HCL) 10/22/2017 14 - Other: See Comments Comments: Night terrors LASIX (FUROSEMIDE) 07/22/2017 7 - Swelling Date Reviewed: 01/27/2018 Reviewed by: Sharlene Thornton (Web Development Consultant) HAYDEE Dempsey - Fully Assessed Reason for Visit: Pain [78] Cmt: lft arm pain , red , swollen and warm also per Guanakito Palafox May need home 0xygen Primary Visit Diagnosis:Cellulitis of skin [L03.90] Other Visit Diagnosis:Low oxygen saturation [R79.81] Order(s):cephALEXin (KEFLEX) 250 mg capsuleTake 1 capsule by mouth twice daily for 5 days.Disp: 10 capsuleRfl: 0 OXYGEN FOR HOME USE [[id number]] Order #: [id number] OXIMETER NON-INVASIVE [W0852SKC] Order #: [id number]: 1 Prescriptions as of 01/27/2018 Sig: ACETAMINOPHEN [...] 1,000 MG INTRAVENO* Inject 1,000 mg intravenously* DIRECTOR OF TEACHER EDUCATION-ROSLYN RX 1 MG-60 MG-300 MCG* CEPHALEXIN 250 [...] order ( let me know Augustina Vaughn) Prescriptions ordered this encounter Disp Refills Start [...] and Disposition History Recorded Encounter Status:Closed by AUGUSTINA VAUGHN CNP on 01/27/18 BEDSIDE GLUCOSE Collected: 01/27/2018 Status: F Source: [place] 6:31 AM [facility] REPOSITORY TYPE CODE TESTS RESULT OUT OF REFERENCE UNITS RANGE LAB L501.080 70-110 mg/dL High BEDSIDE GLU 144 Result Comment: MANAGEMENT OF PATIENT CARE PER NURSING PROTOCOL Performed By: #### L501.080 #### [facility] Laboratory Point of Care [facility] [address] [place], [place] [address] SENDYTOUTRVIOLETA Observed: 01/27/2018 Status: COMPLETED Source: [place] 12:00 AM [facility] REPOSITORY Patient Outreach (FAMPWS) JUAN KELLY ([id number]) 1970 F TRN Date Time Provider Department 01/27/18 ARVIND ARELLANO) FAMPWS During your visit today, we recorded the following information about you: Arvind Arellano RN 01/27/2018 2:15 PM Addendum TRANSITION CARE MANAGEMENT (TCM) FOLLOW-UP NOTE Provider Action/WHIT SHERMAN Informed PATTIE Jackman of DME company for O2 Patient identified by name and date of : YES Spoke to spouse Summary: TC to spouse, informed [employer] in [place] is working on getting patient her hosp bed and W/C. Asking if they want to use the same company for oxygen, states yes. States he is at [facility] getting patient's ATB. Informed PCC will call pt on Friday regarding how her cellulitis is looking. Spouse left message, states they were getting oxygen from [facility]. Pt was in to see Augustina BLANKENSHIP today and she is going to order Oxygen PRN Pest Technician plan for next outreach: Will follow up one week Signature Arvind Arellano RN January 27, 2018 Allergies As of Date: 01/27/2018 Noted Allergy Reaction AUGMENTIN (AMOXICILLIN-POT CLAVUL*07/22/2017 11 - Vomiting BACTRIM (SULFAMETHOXAZOLE-TRIMETH*07/22/2017 14 - Other: See Comments Comments: Chest pain BUSPAR (BUSPIRONE HCL) 10/22/2017 14 - Other: See Comments Comments: Night terrors LASIX (FUROSEMIDE) 07/22/2017 7 - Swelling Date Reviewed: 01/27/2018 Reviewed by: Sharlene Thornton (Web Development Consultant) HAYDEE Dempsey - Fully Assessed Reason for Visit: [facility] Follow Up [9253] Cmt: TCM F/U Call # 2 D/C [...] 1,000 MG INTRAVENO* Inject 1,000 mg intravenously* DIRECTOR OF TEACHER EDUCATION-ROSLYN RX 1 MG-60 MG-300 MCG* Problem List As Of Date 01/27/2018 Noted Resolved ESRD (end stage renal disease) (HCC) [N18.6] INVALID FOR* More... Multiple gastric ulcers [K25.9] Anxiety [F41.9] Depression [F32.9] Encounter Status:Closed by ARVIND ARELLANO on 01/27/18 SURGERY VISIT REPORT Observed: 01/20/2018 Status: F Source: [place] 5:14 PM [facility] REPOSITORY [facility] [address] [place] [address]. [address] [place] [address] OFFICE VISIT Date of Service: 01/20/18 MR#: [id number] Acct: [id number] Name: JUAN KELLY Rep #: [id number] : 1970 Provider: Guanakito Palafox MD Age/Sex: 47/F Location: [facility] Status: Signed Intake Vital Signs01/20/18 Height 5 ft 7 in 01/20/18 Weight: 186 lb 12 oz 01/20/18 Body Mass Index (BMI) 29.2 01/20/18 Blood Pressure 130/80 H Intake Visit Reasons: AV Access Placement Consult Chief Complaint: discuss fistula creation Special Education Director Required: No Is patient in pain?: No [...] Current every day smoker HPI HPI HPI: JUAN KELLY, is a 47 F who presents [...] with a peritoneal dialysis catheter placed at [facility]. Apparently she then developed a yeast infection. She thinks for about 4 weeks she has had a right internal jugular tunneled dialysis catheter that was placed at [facility]. The details regarding her hospitalization there are [...] a previous vein mapping procedure performed at [facility] on May 09, 2017. But this preceded [...] pertinent performed stage II transposition. CC: Dr. Winston Cai and Dr. Kannan Palafox M.D., F.A.C.S. Orders Orders: Coding Level of Care Code Comprehensive,moderate Diagnoses Chronic renal failure, stage 5 N18.5 Left arm swelling M79.89 01/20/18 1714 <Electronically signed by Guanakito Palafox MD> Date Guanakito Palafox MD Cosigner Signature: Date (if applicable) CC: Alexander Gamble MD VENOUS DUPLEX UPPER Observed: 01/20/2018 Status: F Source: [place] EXTREMITY 5:01 PM [facility] REPOSITORY [facility] Cardiovascular Services [address] [place] [address] Venous Duplex US, Unilateral 01/20/18 1532 MR#: [id number] Acct: [id number] Name: JUAN KELLY Rep #: [id number] : 1970 47 From: Guanakito Palafox MD Attending Dr: Guanakito Palafox MD Status: REG CLI Ordering Dr: Gunaakito Palafox MD Date: 01/20/18 Location: [facility] Sex: [...] Date Dictated: 01/20/18 1532 Date Transcribed: 01/20/18 170 Pharmacology Professor: Signed VENOUS DUPLEX UPPER Observed: 01/20/2018 Status: F Source: [place] EXTREMITY 4:58 PM [facility] REPOSITORY [facility] Cardiovascular Services [address] [place] [address] Saphenous Vein Mapping, [facility] 01/20/18 1509 MR#: [id number] Acct: [id number] Name: JUAN KELLY Rep #: [id number] : 1970 47 From: Guanakito Palafox MD Attending Dr: Guanakito Palafox MD Status: REG CLI Ordering Dr: Guanakito Palafox MD Date: 01/20/18 Location: [facility] Sex: F C Admitted: Reason For Study: [...] Performed By: Ana Pop RVT ? 01/20/18 1658 Date Guanakito Palafox MD CC: Alexander Gamble MD; Radha Willingham MD; Guanakito Palafox MD Date Dictated: 01/20/18 1509 Date Transcribed: 01/20/18 165 Pharmacology Professor: Signed CATE Observed: 01/16/2018 Status: COMPLETED Source: [place] 12:00 AM [facility] REPOSITORY Telephone (FAMPWS) JUAN KELLY ([id number]) 1970 F TRN Date Time Provider Department 01/16/18 [facility]N GAMBLE) [facility] your visit today, we recorded [...] weakness from recent hospitalizations. She could barely commissioner of internal revenue the office yesterday without help, let alone walk. PT is coming out to house twice weekly. Is she using walker when ambulating? Any pain after falls? Is she still taking Seroquel at bedtime? Arvind Arellano, RN 01/16/2018 12:40 PM Signed TRANSITION CARE [...] they are closed until Friday TC to [employer], states they show in network DME company is [facility] TC to patient, instructed pt is to [...] Dr. Infante. Pt would like assistance from [facility] to schedule appt. Arvind Arellano RN January 16, 2018 12:25 PM TC to nurse, Kay, states patient is using walker with assistance. PT only came out once this week due to dialysis and multiple doctors appointments. Pt did not have any pain after falls. Pt hit head last night but no pain, bruising or swelling noted. Pt is exhausted from all the appts but isn't sleeping at night. Taking melatonin and Seroquel at bedtime. Pest Technician plan for next outreach: Will follow up one week Signature Arvind Arellano RN January 16, 2018 Kannan Gamble MD 01/16/2018 1:18 PM Signed Reviewed. Rx printed. Please notify patient. Arvind Arellano RN 01/16/2018 2:40 PM Addendum TC to patient, left message re: order for W/C and hospital bed was faxed to [facility] [employer] and gave phone number Arvind Arellano RN Orders, face sheet, copy of insurance card and PCP notes from yesterday faxed to [facility] [employer] in [place] Arvind Arellano RN January 16, 2018 2:30 PM [...] Diagnosis:ESRD (end stage renal disease) on dialysis ([facility]) [N18.6, Z99.2] Other Visit Diagnoses:Sepsis, due to unspecified organism ([facility]) [A41.9] Orthopnea [R06.01] Encephalopathy [G93.40] Bacterial pneumonia [J15.9] Peritonitis ([facility]) [K65.9] Acute on chronic anemia [D64.9] Weakness of both lower extremities [R29.898] Fall, initial encounter [W19.XXXA] Order(s):STANDARD WHEELCHAIR [[id number]] Order #: [id number] HOSP BED W MATTR SEMI-ELECTR RAIL [[id number]] Order #: [id number] Prescriptions as of 01/16/2018 Sig: ACETAMINOPHEN 325 [...] 1,000 MG INTRAVENO* Inject 1,000 mg intravenously* DIRECTOR OF TEACHER EDUCATION-ROSLYN RX 1 MG-60 MG-300 MCG* X CEFTAZIDIME 2 GRAM INTRAVENOU* Inject 2 g intravenously ever* Problem List As Of Date 01/16/2018 Noted Resolved ESRD (end stage renal disease) (HCC) [N18.6] INVALID FOR* More... Multiple gastric ulcers [K25.9] Anxiety [F41.9] Depression [F32.9] Encounter Status:Closed by ARVIND ARELLANO on 01/16/18 XR CHEST 2V FRONTAL/LAT Observed: 01/15/2018 Status: F Source: [place] 12:08 PM [facility] REPOSITORY * * *Final Report* * * [...] stable. Scoliosis is present. IMPRESSION: Stable chest. Pharmacology Professor: PSCB Transcribe Date/Time: Jan 15 2018 8:05P Dictated by : RONALDO BROWER MD This examination was interpreted and the report reviewed and electronically signed by: RONALDO BROWER MD on Jan 15 2018 8:08PM EST [id number] PROGRESS Observed: 01/15/2018 Status: COMPLETED Source: [place] 11:53 AM [facility] REPOSITORY HNO ID: [id number] Author: Mary Ellen Cooper Service: (none) Author Type: (none) Type: Progress Notes Filed: 01/15/2018 12:06 PM Note Text: Radiology Service Progress Note PATIENT NAME: Juan Kelly DATE OF SERVICE: January 15, 2018 [...] AM CNOV Observed: 01/15/2018 Status: COMPLETED Source: [place] 10:40 AM [facility] REPOSITORY Office Visit (FAMPWS) JUAN KELLY ([id number]) 1970 F TRN Date Time Provider Department 01/15/18 10:40 AM KANNAN GAMBLE) FAMPWS During your visit today, we recorded the following information about you: Temperature Pulse Respiration Blood pressure 97 degrees 104/minute 12/minute 146/90 Kannan Gamble MD 01/16/2018 12:01 PM Signed Chief Complaint No chief complaint on file. HPI Juan Kelly is a 47 year old female who presents here today for Hospital Discharge Follow up. Accompanied today by sister in law Mcneil. Patient was admitted to [facility] on 2 separate occasions. She was admitted [...] never received oxygen for home. Returned to [facility] from 01/02 to 01/04 for acute hypoxia 81% on room air at home. TCM as follows below in bold: TRANSITION CARE MANAGEMENT (TCM) INITIAL CONTACT ? ? Provider Action/FYI: ? Pt having procedure in [place] today for double lumen catheter in chest [...] be hidden ? SUMMARY: -Pt discharged from [facility] on 01/04. -Follow up appointment on 01/15 with PCP. -Medication review done with discharge summary. -Admitted for: CKD Sepsis Neuropathy Anxiety and depression Renal Failure Hiatal Hernia Diabetes HTN ? CONCERNS: Pt having procedure in [place] today. Nurse states pt has 4+ pitting edema No SOB, cough or chest pain Pt has open wound on buttocks, HH coming for wound care. ? NEW MEDICATIONS: See Medication Updates ? MEDS HELD/DISCONTINUED: See Medication List ? BRIEF HOSPITAL COURSE: Presented to [facility] on 01/02 as a transfer from [facility] for hypoxia with pulse oximetry 81% [...] for discharge home. Pt to maintain her M-W- hemodialysis schedule in [place]. Pt to retain F/U appt in [place] on 01/06. F/U with PCP in 1 week F/U with STACI Burgess in 2 weeks F/U Dr. Cai, nephrology as needed ? Arvind Arellano, RN January 07, 2018 11:19 AM [...] Requesting order for mammogram and referral to [employer] for cervical cancer screening. Past medical history, appointments, medications, allergies reviewed. Previous Medical History PAST MEDICAL HISTORY Diagnosis Date - Anxiety - Cellulitis - Depression - Diabetes mellitus (HCC) - ESRD (end stage renal disease) on dialysis ([facility]) 03/2017 Dr. Prieto - Multiple gastric ulcers [...] inpn Sliding Scale:<60 >400 Call MD0-150 0 Qeimo707-935 5 Ekuem294-012 7 Gewny948-643 10 Iaeyr506-236 12 Dbzfp282-131 15 Units sevelamer (RENAGEL) 800 mg tablet [...] daily. calcium acetate (PHOSLO) 667 mg capsule DIRECTOR OF TEACHER EDUCATION-ROSLYN RX tablet No current facility-administered medications on [...] #5. 7. ESRD (end stage renal disease) ([facility]) - ICD9: 585.6, ICD10: N18.6 See #5 8. Sacral decubitus ulcer, stage III ([facility]) - ICD9: 707.03, 707.23, ICD10: L89.153 Improving. [...] up for mammogram, yearly mammogram recommended - [facility] SCREENING 12. Screening for cervical cancer - [...] cancer [Z12.4] Order(s):TSH BLD [SQTSH] Order #: [id number] FUTURE T4 FREE/FREE THYROX [SQFT4] Order #: [id number] FUTURE T3 BLD [SQT3] Order #: [id number] FUTURE THYROID PEROXIDASE ANTIBODY BLOOD [SQMICRO] Order #: [id number] FUTURE CONSULT TO INFECTIOUS DISEASES [9039] Order #: [id number]: 1 XR CHEST 2V FRONTAL/LAT [3151655] Order #: [id number] FUTURE KASH SCREENING [3181482] Order #: [id number] FUTURE CONSULT TO GYNECOLOGY [9019] Order #: [id number]: [address] (PROTONIX) 40 mg tabletTake [...] Take 100 mg by mouth once kailash* DIRECTOR OF TEACHER EDUCATION-ROSLYN RX 1 MG-60 MG-300 MCG* NICOTINE (POLACRILEX) [...] 01/16/18 PROGRESS Observed: 01/15/2018 Status: COMPLETED Source: [place] 10:26 AM [facility] REPOSITORY [facility] ID: [id number] Author: Kannan Narayanan) Demetra Service: (none) Author Type: Physician Type: Progress Notes Filed: 01/16/2018 12:01 PM Note Text: Chief Complaint No chief complaint on file. HPI Juan Kelly is a 47 year old female who presents here today for Hospital Discharge Follow up. Accompanied today by sister in law Mcneil. Patient was admitted to [facility] on 2 separate occasions. She was admitted [...] never received oxygen for home. Returned to [facility] from 01/02 to 01/04 for acute hypoxia 81% on room air at home. TCM as follows below in bold: TRANSITION CARE MANAGEMENT (TCM) INITIAL CONTACT ? ? Provider Action/FYI: ? Pt having procedure in [place] today for double lumen catheter in chest [...] be hidden ? SUMMARY: -Pt discharged from [facility] on 01/04. -Follow up appointment on 01/15 with PCP. -Medication review done with discharge summary. -Admitted for: CKD Sepsis Neuropathy Anxiety and depression Renal Failure Hiatal Hernia Diabetes HTN ? CONCERNS: Pt having procedure in [place] today. Nurse states pt has 4+ pitting edema No SOB, cough or chest pain Pt has open wound on buttocks, HH coming for wound care. ? NEW MEDICATIONS: See Medication Updates ? MEDS HELD/DISCONTINUED: See Medication List ? BRIEF HOSPITAL COURSE: Presented to [facility] on 01/02 as a transfer from [facility] for hypoxia with pulse oximetry 81% on room air. Placed on a nonrebreather and ultimately high flow nasal cannula oxygen, which was able to be de-escalated to 6 L NC oxygen following hemodialysis. On 01/04 pt was back on room air and hypoxia had resolved. PT evaluated pt and cleared for home with home PT. Pt improved quicker than expected. On 11/18 pt was medically cleared for discharge home. Pt to maintain her M-W-F hemodialysis schedule in [place]. Pt to retain F/U appt in [place] on 01/06. F/U with PCP in 1 week F/U with Dr. Infante, ID in 2 weeks F/U Dr. Cai, nephrology as needed ? Arvind Arellano RN January 07, 2018 11:19 AM [...] Requesting order for mammogram and referral to [employer] WE[employer] for cervical cancer screening. Past medical history, appointments, medications, allergies reviewed. Previous Medical History PAST MEDICAL HISTORY Diagnosis Date - Anxiety - Cellulitis - Depression - Diabetes mellitus (HCC) - ESRD (end stage renal disease) on dialysis ([facility]) 03/2017 Dr. Prieto - Multiple gastric ulcers [...] inpn Sliding Scale:<60 >400 Call MD0-150 0 Cordm878-355 5 Hhdmp027-279 7 Jzoua420- 300 10 Gbcst023-616 12 Pcnqv074-634 15 Units sevelamer (RENAGEL) 800 mg tablet [...] daily. calcium acetate (PHOSLO) 667 mg capsule [employer] EDUCATION-ROSLYN RX tablet No current facility-administered medications on [...] #5. 7. ESRD (end stage renal disease) (HCC) - ICD9: 585.6, ICD10: N18.6 See #5 8. Sacral decubitus ulcer, stage III (HCC) - ICD9: 707.03, 707.23, ICD10: L89.153 Improving. [...] up for mammogram, yearly mammogram recommended - [facility] SCREENING 12. Screening for cervical cancer - ICD9: V76.2, ICD10: Z12.4 - CONSULT TO GYNECOLOGY Kannan Gamble MD PROGRESS Observed: 01/07/2018 Status: COMPLETED Source: [place] 12:00 PM [facility] REPOSITORY HNO ID: [id number] Author: Kannan Narayanan) Demetra Service: (none) Author Type: Physician Type: Progress Notes Filed: 01/07/2018 12:00 PM Note Text: meds updated. Dragante approved as well. PROGRESS Observed: 01/07/2018 Status: COMPLETED Source: [place] 11:25 AM [facility] REPOSITORY HNO ID: [id number] Author: Arvind GomezRn) Anibal Service: (none) Author Type: Registered Nurse Type: Progress Notes Filed: 01/07/2018 11:58 AM Note Text: TRANSITION CARE MANAGEMENT (TCM) FOLLOW-UP NOTE Provider Action/FYI Delfinoretdarlene script pended for your approval Pt isn't always hungry and eating. nurse asked about Glucerna supplement. PCC instructed pt to ask water resources project manager because unsure how much protein they want [...] pt PCP will not order tramadol until [place] has run out. Pt became very anxious during visit and wanted to smoke. She doesn't have Nicorette gum at home; order pended for PCP approval. nurse asking if pt can take Vistaril for anxiety? Asked PCP who approved Vistaril usage. Pest Technician plan for next outreach: Will follow up one week Signature Arvind Arellano RN January 07, 2018 PROGRESS Observed: 01/07/2018 Status: COMPLETED Source: [place] 10:23 AM [facility] REPOSITORY HNO ID: [id number] Author: Kannan Narayanan) Demetra Service: (none) Author Type: Physician Type: Progress Notes Filed: 01/07/2018 10:23 AM Note Text: Order for seroquel approved. Just filled 7 days of [place]one on 01/04. Would not recommend she be on Tramadol and Mentone at the same time. Will not be able to fill today. PROGRESS Observed: 01/07/2018 Status: COMPLETED Source: [place] 10:17 AM [facility] REPOSITORY HNO ID: [id number] Author: Arvind Escalante) Anibal Service: (none) Author Type: Registered Nurse Type: [...] SARAVANAN Class: C-IV Please review and advise. Arvind Arellano RN PROGRESS Observed: 01/06/2018 Status: COMPLETED Source: [place] 11:47 AM [facility] REPOSITORY HNO ID: [id number] Author: Arvind Escalante) Anibal Service: (none) Author Type: Registered Nurse Type: Progress Notes Filed: 01/07/2018 11:25 AM Note Text: TRANSITION CARE MANAGEMENT (TCM) INITIAL CONTACT Provider Action/FYI: Pt having procedure in [place] today for double lumen catheter in chest [...] might be hidden SUMMARY: -Pt discharged from [facility] on 01/04. -Follow up appointment on 01/15 with PCP. -Medication review done with discharge summary. -Admitted for: CKD Sepsis Neuropathy Anxiety and depression Renal Failure Hiatal Hernia Diabetes HTN CONCERNS: Pt having procedure in [place] today. Nurse states pt has 4+ pitting edema No SOB, cough or chest pain Pt has open wound on buttocks, HH coming for wound care. NEW MEDICATIONS: See Medication Updates MEDS HELD/DISCONTINUED: See Medication List BRIEF HOSPITAL COURSE: Presented to [facility] on 01/02 as a transfer from [facility] for hypoxia with pulse oximetry 81% [...] to maintain her M-W-F hemodialysis schedule in [place]. Pt to retain F/U appt in [place] on 01/06. F/U with PCP in 1 week F/U with Dr. Infante ID in 2 weeks F/U Dr. Cai, nephrology as needed Arvind Arellano, RN January 07, 2018 11:19 AM YAYA Observed: 01/06/2018 Status: COMPLETED Source: [place] 12:00 AM [facility] REPOSITORY Patient Outreach (FAMPWS) JUAN KELLY ([id number]) 1970 F TRN Date Time Provider Department 01/06/18 ARVIND ARELLANO (RN) RENETTA During your visit today, we recorded the following information about you: Arvind Arellano RN 01/07/2018 11:25 AM Signed TRANSITION CARE MANAGEMENT (TCM) INITIAL CONTACT Provider Action/FYI: Pt having procedure in [place] today for double lumen catheter in chest [...] might be hidden SUMMARY: -Pt discharged from [facility] on 01/04. -Follow up appointment on 01/15 with PCP. -Medication review done with discharge summary. -Admitted for: CKD Sepsis Neuropathy Anxiety and depression Renal Failure Hiatal Hernia Diabetes HTN CONCERNS: Pt having procedure in [place] today. Nurse states pt has 4+ pitting edema No SOB, cough or chest pain Pt has open wound on buttocks, HH coming for wound care. NEW MEDICATIONS: See Medication Updates MEDS HELD/DISCONTINUED: See Medication List BRIEF HOSPITAL COURSE: Presented to [facility] on 01/02 as a transfer from [facility] for hypoxia with pulse oximetry 81% [...] to maintain her M-W-F hemodialysis schedule in [place]. Pt to retain F/U appt in [place] on 01/06. F/U with PCP in 1 week F/U with Dr. Infante ID in 2 weeks F/U Dr. Cai, nephrology as needed Arvind Arellano RN January 07, 2018 11:19 AM Arvind Arellano RN 01/07/2018 10:18 AM Signed PRIMARY [...] SARAVANAN Class: C-IV Please review and advise. RODRIGO Vila MD 01/07/2018 10:23 AM Signed Order for seroquel approved. Just filled 7 days of [place] on 01/04. Would not recommend she be on Tramadol and Mentone at the same time. Will not be able to fill today. Arvind Arellano RN 01/07/2018 11:58 AM Addendum TRANSITION CARE MANAGEMENT (TCM) FOLLOW-UP NOTE Provider Action/FYI Nicorette script pended for your approval Pt isn't always hungry and eating. nurse asked about Glucerna supplement. PCC instructed pt to ask water resources project manager because unsure how much protein they want [...] pt PCP will not order tramadol until [place] has run out. Pt became very anxious during visit and wanted to smoke. She doesn't have Nicorette gum at home; order pended for PCP approval. nurse asking if pt can take Vistaril for anxiety? Asked PCP who approved Vistaril usage. Pest Technician plan for next outreach: Will follow up one week Signature Arvind Arellano RN January 07, 2018 Kannan Gamble [...] Primary Visit Diagnosis:ESRD (end stage renal disease) ([facility]) [N18.6] Other Visit Diagnoses:Dry nares [J34.89] Insomnia, unspecified type [G47.00] Nicotine dependence with nicotine- induced disorder, unspecified nicotine product type [F17.209] Acute respiratory failure, unspecified whether with hypoxia or hypercapnia ([facility]) [J96.00] Order(s):QUEtiapine (SEROQUEL) 25 mg tabletTake 1 [...] 10 MG TABLET 1 tablet once daily. DIRECTOR OF TEACHER EDUCATION-ROSLYN RX 1 MG-60 MG-300 MCG* IPRATROPIUM-ALBUTEROL 0.5 [...] Noted Resolved ESRD (end stage renal disease) ([facility]) [N18.6] INVALID FOR* More... Multiple gastric ulcers [...] is not on file. Encounter Status:Closed by ARVIND ARELLANO on 01/07/18 CBC Collected: 01/04/2018 Status: F Source: [facility] 4:48 AM [facility] REPOSITORY TYPE CODE TESTS RESULT [...] CBC, ADIFF, ANEU, MG, BMP, GFR #### [place] [address] .AUTO DIFF Collected: 01/04/2018 Status: F Source: [facility] 4:48 AM [facility] REPOSITORY TYPE CODE [...] CBC, ADIFF, ANEU, MG, BMP, GFR #### [place] [address] .NEUABS Collected: 01/04/2018 Status: F Source: [facility] 4:48 AM [facility] REPOSITORY TYPE CODE TESTS RESULT OUT OF REFERENCE UNITS RANGE LAB ANEU(LOINC) 2.25-8.10 10 3/mcL Neutrophil, 4.40 Absolute Performed By: #### CBC, ADIFF, ANEU, MG, BMP, GFR #### [place] [address] MG Collected: 01/04/2018 Status: F Source: [facility] 4:48 AM [facility] REPOSITORY TYPE CODE TESTS RESULT OUT OF REFERENCE UNITS RANGE LAB MG(LOINC) 1.6-2.4 mg/dL Magnesium Lvl 2.2 Performed By: #### CBC, ADIFF, ANEU, MG, BMP, GFR #### [place] [address] BMP Collected: 01/04/2018 Status: F Source: [facility] 4:48 AM [facility] REPOSITORY TYPE CODE [...] CBC, ADIFF, ANEU, MG, BMP, GFR #### [place] [address] .GFR Collected: 01/04/2018 Status: F Source: [facility] 4:48 AM [facility] REPOSITORY TYPE CODE TESTS RESULT OUT OF REFERENCE UNITS RANGE LAB GFRAA(LOINC ml/min/1.73 ) sqm GFR 12 Libyan Result Comment: GFR Population mean for , [...] CBC, ADIFF, ANEU, MG, BMP, GFR #### [address] [address] CBC Collected: 01/03/2018 Status: F Source: [facility] 4:18 AM [facility] REPOSITORY TYPE CODE [...] #### CBC, ADIFF, ANEU, BMP, GFR #### [address] [address] .AUTO DIFF Collected: 01/03/2018 Status: F Source: [facility] 4:18 AM [facility] REPOSITORY TYPE CODE [...] #### CBC, ADIFF, ANEU, BMP, GFR #### [place] [address] .NEUABS Collected: 01/03/2018 Status: F Source: [facility] 4:18 AM [facility] REPOSITORY TYPE CODE TESTS RESULT OUT OF REFERENCE UNITS RANGE LAB ANEU(LOINC) 2.25-8.10 10 3/mcL Neutrophil, 4.70 Absolute Performed By: #### CBC, ADIFF, ANEU, BMP, GFR #### [place] [address] BMP Collected: 01/03/2018 Status: F Source: [facility] 4:18 AM [facility] REPOSITORY TYPE CODE [...] Calcium Lvl 8.4 Performed By: #### CBC, ADIFF, ANEU, BMP, GFR #### [address] [address] .GFR Collected: 01/03/2018 Status: F Source: [facility] 4:18 AM [facility] REPOSITORY TYPE CODE TESTS RESULT OUT OF REFERENCE UNITS RANGE LAB GFRAA(LOINC ml/min/1.73 ) sqm GFR 17 Libyan Result Comment: GFR Population mean for , [...] #### CBC, ADIFF, ANEU, BMP, GFR #### [address] [address] CBC Collected: 01/02/2018 Status: F Source: [facility] 8:23 AM [facility] REPOSITORY TYPE CODE [...] CBC, ADIFF, ANEU, BMP, GFR, PBNP #### [address] [address] .AUTO DIFF Collected: 01/02/2018 Status: F Source: [facility] 8:23 AM [facility] REPOSITORY TYPE CODE [...] CBC, ADIFF, ANEU, BMP, GFR, PBNP #### [address] [address] .NEUABS Collected: 01/02/2018 Status: F Source: [facility] 8:23 AM [facility] REPOSITORY TYPE CODE TESTS RESULT OUT OF REFERENCE UNITS RANGE LAB ANEU(LOINC) 2.25-8.10 10 3/mcL Neutrophil, 4.70 Absolute Performed By: #### CBC, ADIFF, ANEU, BMP, GFR, PBNP #### [address] [address] BMP Collected: 01/02/2018 Status: F Source: [facility] 8:23 AM [facility] REPOSITORY TYPE CODE [...] CBC, ADIFF, ANEU, BMP, GFR, PBNP #### [address] [address] .GFR Collected: 01/02/2018 Status: F Source: [facility] 8:23 AM [facility] REPOSITORY TYPE CODE TESTS RESULT OUT OF REFERENCE UNITS RANGE LAB GFRAA(LOINC ml/min/1.73 ) sqm GFR 11 Libyan Result Comment: GFR Population mean for , [...] CBC, ADIFF, ANEU, BMP, GFR, PBNP #### [place] [id number] PBNP Collected: 01/02/2018 Status: F Source: [facility] 8:23 AM [facility] REPOSITORY TYPE CODE TESTS RESULT OUT OF REFERENCE UNITS RANGE LAB PBNP(LOINC) 0-450 pg/mL High [facility] [id number] proBNP Result Comment: NT-proBNP results of less than 300 pg/mL effectively rules out acute congestive heart failure with 99% negative predictive value. Performed By: #### CBC, ADIFF, ANEU, BMP, GFR, PBNP #### [address] [address] XR CHEST 1 VIEW Observed: 01/02/2018 Status: F Source: [facility] 8:18 AM [facility] REPOSITORY ORIGINAL Chest [...] AM BG Collected: 01/02/2018 Status: F Source: [facility] 8:17 AM [facility] REPOSITORY TYPE CODE [...] 731 Pressure Performed By: #### BG #### [facility] [address] [place] [address] CNCO Observed: 01/02/2018 Status: COMPLETED Source: [place] 12:00 AM [facility] REPOSITORY Letter Text Kidney and Pancreas Transplant Pre-Transplant Department January 09, 2018 Winston Cai MD [facility] [place] [address] Patient Name: Juan Kelly Patient Address: [address] [place] [address] Winston Cai, At this time we are unable to make a determination in order to place the above named patient on the [facility] donor kidney transplant waitlist because needs to continue rehabilitation, completely stop smoking and show better hemoglobin A1c control in the next 6 months. The patient has been notified If she desires to pursue a kidney transplant in the future, please have the patient call the pre-transplant office at [phone] or , ext [phone]. Sincerely yours, Aaron Eagle RN [facility] Kidney and Pancreas Transplant Team PROTHROMBIN TIME AND Collected: 01/01/2018 Status: F Source: [facility] 11:28 [facility] REPOSITORY TYPE CODE TESTS RESULT OUT [...] 3.5 MECHANICAL HEART VALVES Performed By: #### [id number] #### [place] [address] APTT Collected: 01/01/2018 Status: F Source: [facility] 11:28 [facility] REPOSITORY TYPE CODE TESTS RESULT OUT OF RANGE REFERENCE UNITS LAB PTT(LOINC) 21.6 - 35.4 sec PTT 28.6 Performed By: #### [id number] #### [place] [address] BB TYPE & SCREEN Collected: 01/01/2018 Status: F Source: [facility] 11:[address] [place] [address] REPOSITORY TYPE CODE TESTS RESULT OUT OF REFERENCE UNITS RANGE LAB BB TYPE & SCREEN(LOIN C) BB TYPE & SCREEN Result Comment: TYPE, Rh, AND SCREEN LAB ABO(LOINC) ABO B LAB Rh(LOINC) Rh NEG LAB ANTIBODY SCR(LOINC) ANTIBODY negative SCR Performed By: #### [id number] #### [place] [address] BB CROSSMATCH 1ST UNIT Collected: 01/01/2018 Status: F Source: [facility] 11:28 [facility] REPOSITORY TYPE CODE TESTS RESULT OUT OF REFERENCE UNITS RANGE LAB BB CROSSMATCH 1ST UNIT(LOINC) BB CROSSMATCH 1ST UNIT Result Comment: [id number] REQUEST FOR BLOOD OR BLOOD COMPONENT UNIT #_1 01/02/18.0020.ADL. LAB Component(LOINC) Component [facility] LAB Pt's ABO/Rh(LOINC) Pt's ABO/Rh B NEGATIVE LAB Donor's ABO/Rh(LOINC) Donor's ABO/Rh O NEGATIVE LAB Donor's Unit No(LOINC) Donor's Unit No [id number] LAB N(LOINC) Unit Exp Date 02/06/2018 LAB [...] UPON COMPLETION OF TRANSFUSION. Performed By: #### [id number] #### [place] [address] OCCULT BLOOD Collected: 01/01/2018 Status: F Source: [facility] STOOL(NON-CANCER SCREENING) 11:00 PM [facility] REPOSITORY TYPE CODE TESTS RESULT OUT OF REFERENCE UNITS RANGE LAB OCCULT BLOOD [NEGATIVE STOOL(LOINC) OCCULT NEGATIVE BLOOD STOOL Performed By: #### [id number] #### [place] [address] CHEST 1 VIEW Observed: 01/01/2018 Status: F Source: [facility] 10:00 PM [facility] REPOSITORY [place] [address] Patient: JUAN KELLY Phone#: : [phone] Age: 47 Gender: F Pt. Type: ER Account: [id number] Location: 052 Ordering: MOHSEN BERRY Exam Date: 01/01/2018/21:24 Family Phys: JAROCHO BARROW Charge Code: [id number] Physician: [place] Order #: [id number] DLP Dose#: PROCEDURE: X-RAY CHEST 1 VIEW COMPARISON: [facility], XR, CHEST 1 VIEW, 11/21/2017, 10:16. INDICATIONS: Shortness [...] BLOOD GAS Collected: 01/01/2018 Status: F Source: [facility] ANALYSIS 9:53 PM [facility] REPOSITORY TYPE CODE TESTS RESULT OUT [...] TEST POS Result Comment: { TIME CALLED 2199 Performed By: #### [id number] #### [facility],[address] [place] [id number] CBC Collected: 01/01/2018 Status: F Source: [facility] 9:40 PM [facility] REPOSITORY TYPE CODE TESTS RESULT OUT [...] { CALLED TO KAYCEE BY LMM @ 2199 { READ BACK BY KAYCEE RA 2154 { TEST REPEATED LAB MCV(LOINC) 80 - [...] 7.10 x10EE3/U L Neut # 5.30 LAB Coffey #(LOINC) 0.20 - 1.00 x10EE3/U L Coffey # 0.70 LAB EO #(LOINC) 0.00 - 0.50 x10EE3/U L EO # 0.30 LAB Baso #(LOINC) 0.00 - 0.10 x10EE3/U L Baso # 0.10 LAB MANUAL DIFF(LOINC) MANUAL DIFF N/A LAB MORPHOLOGY(LOINC ) MORPHOLOGY N/A Result Comment: {CD] Performed By: #### [id number] #### [facility],[address] [place] [address] CMP WITH EGFR Collected: 01/01/2018 Status: F Source: [facility] 9:40 PM [facility] REPOSITORY TYPE CODE TESTS RESULT OUT [...] OF AGE AND OLDER. Performed By: #### [id number] #### [place] [id number] TROPONIN Collected: 01/01/2018 Status: F Source: [facility] 9:40 PM [facility] REPOSITORY TYPE CODE TESTS RESULT OUT OF REFERENCE UNITS RANGE LAB TROPONIN 0.00 - 0.05 ng/ml I(LOINC) High Alert TROPONIN I 0.08 Result Comment: { CALLED TO OLESYA BY LM @ 2210 { READ BACK BY OLESYA RA 2214 Elevated troponin (above the 99th [...] such as heterophile antibodies). Performed By: #### [id number] #### [place] [id number] BNP (B-TYPE NATRIURETIC Collected: 01/01/2018 Status: F Source: [facility] PEPTIDE) 9:40 PM [facility] REPOSITORY TYPE CODE TESTS RESULT OUT OF RANGE REFERENCE UNITS LAB BNP(LOINC) 1 - 100 pg/ml High BNP 1727 Performed By: #### [id number] #### [facility] [place] [address] Observed: 01/01/2018 Status: F Source: [facility] CULTURE BLOOD 9:40 PM [facility] REPOSITORY CULTURE BLOOD CULTURE BLOOD SET: 1 of 2 24HOUR REPORT NEGATIVE 48HOUR REPORT NEGATIVE 72HOUR REPORT NEGATIVE M I C R O B I O L O G Y R E P O R T FINAL Antimicrobial Susceptibility and Organism Identification Report Specimen Number : [id number] Requested : 01/01/18 Specimen Source : BLOOD Collected : 01/01/18 21:40 [facility] : Emergency Room Received : 01/01/18 21:40 Requesting Physician : jamal Patient/Specimen Tests and Comments Specimen Comments FINAL REPORT: No Growth at 5 Days Tech : Source : BLOOD ID # : [id number] FINAL Report Date : / / : Collected : 01/01/18 21:40 01/07/18.1015.KLS. 01/07/18.1015.KLS.COMPLETE Performed By: #### [id number] #### [facility],[address] [place] [address] LACTATE Collected: 01/01/2018 Status: F Source: [facility] 9:34 PM [facility] REPOSITORY TYPE CODE TESTS RESULT OUT OF REFERENCE UNITS RANGE LAB LACTATE(LIZETT 4.5 - 18.0 mg/dL CA) LACTATE 6.4 Performed By: #### [id number] #### [facility],[address] [place] [address] Observed: 01/01/2018 Status: F Source: [facility] CULTURE BLOOD 9:34 PM [facility] REPOSITORY CULTURE BLOOD CULTURE BLOOD SET: 2 of 2 24HOUR REPORT NEGATIVE 48HOUR REPORT NEGATIVE 72HOUR REPORT NEGATIVE M I C R O B I O L O G Y R E P O R T FINAL Antimicrobial Susceptibility and Organism Identification Report Specimen Number : [id number] Requested : 01/01/18 Specimen Source : BLOOD Collected : 01/01/18 21:34 [facility] : Emergency Room Received : 01/01/18 21:34 Requesting Physician : jamal Patient/Specimen Tests and Comments Specimen Comments FINAL REPORT: No Growth at 5 Days Tech : Source : BLOOD ID # : [id number] FINAL Report Date : / / : Collected : 01/01/18 21:34 01/07/18.1014.KLS. 01/07/18.1014.KLS.COMPLETE Performed By: #### [id number] #### [facility] [place] [address] EMERGENCY REPORT Observed: 01/01/2018 Status: F Source: [facility] 9:05 PM [facility] EMERGENCY ROOM REPORT NAME ACCOUNT SEX AGE ADMIT DISCHARGE PT MED. RECORD# NUMBER DATE DATE TYPE JUAN KELLY [id number] F 47 01/01/18 01/02/18 3 [id number] ROOM: ER DATE OF : 1970 DICTATING [...] dialysis treatments. The patient [place] water resources [place] PAST MEDICAL HISTORY: End-stage renal disease and [...] her previous when she was discharged from [facility], which was 7.9. BNP is elevated at [...] evidence of bilateral Page 1 of 2 JUAN KELLY Emergency Room Report pleural effusions. This is likely the cause of her hypoxia. The patient remained on 4 liters nasal cannula. The patient was tachycardic with new EKG changes showing lateral T-wave inversions. The patient will be transferred to [facility] for further evaluation and likely dialysis. I [...] Mohsen Berry DO 01/02/18 06:29 JOB #: [id number] Transcribed By: armida 01/02/18 08:26 Electronically signed by: E-SIGN: Mohsen Berry D.O. 01/10/18 22:54 Page 2 of 2 JUAN KELLY Emergency Room Report CNOV Observed: 12/29/2017 Status: COMPLETED Source: [place] 4:00 PM [facility] REPOSITORY Office Visit (TXCTGL) JUAN KELLY ([id number]) 1970 F TRN Date Time Provider Department 12/29/17 4:00 PM UROLOGY TXP CLINIC [facility] During your visit today, we recorded the following information about you: Temperature Pulse Blood pressure Weight 97.5 degrees 109/minute 140/76 88.9 kg Height 1.727 m Monika Saldana MD 12/29/2017 5:26 PM Signed [facility] Transplant Evaluation CC: Patient is a 47 year old female here for transplant candidacy evaluation. Reason for visit: here for evaluation to be a Kidney Transplant recipient. Referred by: Winston Cai MD [id number] [place] [id number] I will communicate with the referring provider [...] wasn't sure what was it Denies any DC or stroke Still smoke despite of all [...] ESRD (end stage renal disease) on dialysis ([facility]) 03/2017 Dr. Prieto - Multiple gastric ulcers [...] inpn Sliding Scale:<60 >400 Call MD0-150 0 Nvcje234-309 5 Ysxfa057-722 7 Aknge614-576 10 Htpui829-719 12 Udhkk499-606 15 Units sevelamer (RENAGEL) 800 mg tablet [...] daily. calcium acetate (PHOSLO) 667 mg capsule DIRECTOR OF TEACHER EDUCATION-ROSLYN RX tablet No current facility-administered medications for [...] Yes x 3 Immunizations: HBV series: Received, 2018 Pneumovax: Received, 2017 Influenza vaccine: Received, date 2018 Aaron Eagle RN REVIEW OF SYSTEMS GENERAL: No [...] and counselling Monika Saldana MD Referring Provider: WINSTON CAI [[id number]] Allergies As of Date: 12/29/2017 Noted Allergy Reaction AUGMENTIN (AMOXICILLIN-POT CLAVUL*07/22/2017 11 - Vomiting BACTRIM (SULFAMETHOXAZOLE-TRIMETH*07/22/2017 14 - Other: See Comments Comments: Chest pain BUSPAR (BUSPIRONE HCL) 10/22/2017 14 - Other: See Comments Comments: Night terrors LASIX (FUROSEMIDE) 07/22/2017 7 - Swelling Date Reviewed: 12/29/2017 Reviewed by: Susan Guillory Ma - Fully Assessed Primary Visit Diagnosis:ESRD on dialysis ([facility]) [N18.6, Z99.2] Other Visit Diagnoses:Type 2 diabetes mellitus with diabetic nephropathy, with long-term current use of insulin ([facility]) [E11.21, Z79.4] Tobacco abuse [Z72.0] Frailty [R54] [...] once kailash* CALCIUM ACETATE 667 MG CAPSULE DIRECTOR OF TEACHER EDUCATION-ROSLYN RX 1 MG-60 MG-300 MCG* Problem List As Of Date 12/29/2017 Noted Resolved ESRD (end stage renal disease) (HCC) [N18.6] INVALID FOR* More... Multiple gastric ulcers [K25.9] Anxiety [F41.9] Depression [F32.9] Encounter Status:Closed by MONIKA SALDANA MD on 12/29/17 PROGRESS Observed: 12/29/2017 Status: COMPLETED Source: [place] 3:17 PM [facility] REPOSITORY O ID: [id number] Author: Monika Saldana Service: (none) Author Type: Physician Type: Progress Notes Filed: 12/29/2017 5:26 PM Note Text: [facility] [place] [facility] Transplant Evaluation CC: Patient is a 47 year old female here for transplant candidacy evaluation. Reason for visit: here for evaluation to be a Kidney Transplant recipient. Referred by: Winston Cai MD [id number] [place] [id number] I will communicate with the referring provider [...] wasn't sure what was it Denies any DC or stroke Still smoke despite of all [...] renal disease) on dialysis (HCC) 03/2017 Dr. Prieto - Multiple gastric ulcers [...] inpn Sliding Scale:<60 >400 Call MD0-150 0 Umfmi712-455 5 Uopej286-195 7 Nmxqi150- 300 10 Busub310-471 12 Hrsob675-046 15 Units sevelamer (RENAGEL) 800 mg tablet [...] daily. calcium acetate (PHOSLO) 667 mg capsule DIRECTOR OF TEACHER EDUCATION-ROSLYN RX tablet No current facility-administered medications for this visit. FAMILY HISTORY Problem Relation Age of Onset - Diabetes Mother - Hypertension Mother - Diabetes Father - Hypertension Father Family Status Relation Status - Mo - Fa - Bro Alive - Bro Alive Social History Marital status: Spouse name: Mateusz [...] Yes x 3 Immunizations: HBV series: Received, date 2017 Pneumovax: Received, 2017 Influenza vaccine: Received, date 2017 Aaron Eagle RN REVIEW OF SYSTEMS GENERAL: No [...] minutes was spent on care and counselling MD GINGER HallOV Observed: 12/29/2017 Status: COMPLETED Source: [place] 3:15 PM [facility] REPOSITORY Office Visit (TXCTGL) JUAN KELLY ([id number]) 1970 F TRN Date Time Provider Department 12/29/17 3:15 PM NEPHROLOGY TXP CLINIC [facility] During your visit today, we recorded the following information about you: Temperature Pulse Blood pressure Weight 97.5 degrees 109/minute 140/76 88.9 kg Height 1.727 m Aaron Eagle RN 12/29/2017 4:15 PM Signed This patient was not seen by a water resources project manager. Referring Provider: WINSTON CAI [[id number]] Allergies As of Date: 12/29/2017 Noted Allergy [...] once kailash* CALCIUM ACETATE 667 MG CAPSULE DIRECTOR OF TEACHER EDUCATION-ROSLYN RX 1 MG-60 MG-300 MCG* Problem List As Of Date 12/29/2017 Noted Resolved ESRD (end stage renal disease) (HCC) [N18.6] INVALID FOR* More... Multiple gastric ulcers [K25.9] Anxiety [F41.9] Depression [F32.9] Medications Discontinued During This Encounter ALPRAZolam (XANAX) 0.25 mg tablet 0 07/15/2017 12/29/2017 Class: Historical Med Sig: Disc: Reason for discontinue is not on file. Encounter Status:Closed by AARON EAGLE RN on 12/29/17 PROGRESS Observed: 12/29/2017 Status: COMPLETED Source: [place] 2:48 PM [facility] REPOSITORY HNO ID: [id number] Author: Aaron Eagle RN Service: (none) Author Type: (none) Type: Progress Notes Filed: 12/29/2017 4:15 PM Note Text: This patient was not seen by a water resources project manager. CNSW Observed: 12/29/2017 Status: COMPLETED Source: [place] 1:30 PM [facility] REPOSITORY Social Work (TXCTGL) JUAN KELLY ([id number]) 1970 F TRN Date Time Provider Department 12/29/17 1:30 PM CIERRA LOREDO) TRAM During your visit today, we recorded the following information about you: DANICA CRUZ 12/29/2017 4:11 PM Signed PSYCHOSOCIAL EVALUATION FOR KIDNEY TRANSPLANT Social Supports: Patients and [id number]. Secondary support will need to be confirmed with addiction social worker. Financial Concerns: Present and her dialysis center is signing her [...] following the MDs recommendations. SIPAT: 24 REFERRAL: Juan Kelly was referred to Social Work for a psychosocial evaluation to establish if she would be a suitable candidate to receive a kidney transplant. She receives dialysis at [facility] on , , . The dialysis center phone number is . The pt does use assistive devices for ambulation when she is going long distances. She will use a wheelchair when needed. Currently she is in a penitentiary facility, [facility], in order to build up her strength and ambulation. DIALYSIS START DATE: April 2017 This social work psychosocial evaluation was completed with Juan Kelly on December 29, 2017. She was accompanied by her , Mateusz. Race/Gender: White female [place] Citizen: Yes IDENTIFYING INFORMATION/LIVING SITUATION Juan Kelly [id number] [facility] [address] [place] [id number]. The home is a ranch style home. The patient is in a SNF working on ambulation. There are architectural barriers currently in the home until the patient regains strength. Patient states it takes 1 1/2 hours to get to CC. Juan Kelly has been living in this home since March. Juan Kelly is requires assistance with the following [...] LIVE 2.5 OR MORE HOURS AWAY FROM [facility]: Do you have the financial means to stay in the area for four weeks or more post-transplant? NA COMPREHENSION OF MEDICAL SITUATION Juan Kelly reports that her kidney disease is [...] had pneumonia and had to start dialysis. Juan Kelly was able to recall information that was presented to her today during the kidney transplant educational class. Juan Kelly does understand and, has knowledge of [...] she has a difficult time keeping track. cone worker empathized with patient and explained why [...] Called and spoke with patients dialysis center. RODRIGO [facility], states the patient was just switched [...] hemoglobin 8.1. 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 Coping strategies: I just sit and cry Patient does not have the appropriate coping strategies to handle the potential stress of a transplant. Scientologist affiliation: Faith Stressors in life: Health issues, managing her life. Ever cope by using a substance: No SOCIAL NARRATIVE Juan Kelly grew up in [place], [place]. She is 47 years of age. Juan Kelly was raised by her biological mom and dad. Her dad worked at [employer] and her mom worked in a factory. 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 Pregnancies: 3 pregnancies Children: 3 children Edgar, blaine daughter. 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 She works at [employer] and lives with her brother. Ronny, patients son. He is 19 years old and is in good health now. He had a tumor in his arm removed. He works at the family owned [employer]. Prasad, patients son. He is 14 years old and is in good health currently but also had a tumor in his ear which caused a lost of earring in one of his ears. He is in school. EDUCATION Highest Educational Level: High School. Juan Kelly denies academic problems in school. Reading/Comprehension Problems Then or Now: No Computer Literacy: yes Access to Home Internet: yes EMPLOYMENT Service: No Eligible for VA Benefits: NA Work History: She has had a varied of jobs. 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 ? Contact Number: [phone] ? Health Status and Availability of Caregiver: good health, available as much as needed ? Valid Collet Gluer's License/Working Vehicle: yes, yes ? Caregiver Substance Use: no ? Caregiver Mental Health: no Secondary Caregiver: Ewa Cosme, patients ogoiwp-tn-sou. She is 44 years old and works for [employer] as a addiction social worker. ? Contact Number: [phone] ? Health Status and Availability: good health, per patient she could take time off of work if needed ? Valid Collet Gluer's License/Working Vehicle: yes, yes ? Caregiver Substance [...] support will need to be confirmed with addiction social worker. ? Body Image/Scar: No IMPRESSIONS/RECOMMENDATIONS At this time, Juan Kelly is not yet a suitable psychosocial candidate for a kidney transplant until her secondary support is confirmed, she is cleared by transplant psychiatry and shows mental health stability. There are no other psychosocial concerns that could have a negative impact on the successful and sustained outcome of a kidney transplant. The patient will have social supports from her and her uhtnsk-nn-tom. Secondary support will need to be confirmed with addiction social worker. The patient explains she will have other family and friends to assist her as well. The patient has agencyQ insurance and is in the process of applying for ESRD medicare. cone worker explained the patient and her family will need to prepare for potential transplant cost and expenses. The patient compliance is unknown at this time. Explained by the dialysis center the patient was just recently switched to hemo dialysis due to infections and noncompliance with managing her PD dialysis. The patient is currently living in a penitentiary home due to weakness in ambulation from [...] precautions to take because of being immunosuppressed. Juan Kelly was advised that it is imperative to adhere to the medical regimen and recovery restrictions. Juan Kelly indicated understanding of this information. Juan Kelly had the opportunity to discuss any issues and questions. Patient was given information and brochures about the kidney transplant process and fund raising options. The patient was given the phone number of the transplant addiction social worker to address future concerns. Cierra Loredo, [facility], WORK STATION SUPPORT SPECIALIST Transplant Coat Fitter Referring Provider: WINSTON CAI [[id number]] Allergies As of Date: 12/29/2017 Noted Allergy [...] once kailash* CALCIUM ACETATE 667 MG CAPSULE DIRECTOR OF TEACHER EDUCATION-ROSLYN RX 1 MG-60 MG-300 MCG* Problem List As Of Date 12/29/2017 Noted Resolved ESRD (end stage renal disease) (HCC) [N18.6] INVALID FOR* More... Multiple gastric ulcers [K25.9] Anxiety [F41.9] Depression [F32.9] Encounter Status:Closed by CIERRA LOREDO on 12/29/17 PROGRESS Observed: 12/29/2017 Status: COMPLETED Source: [place] 1:22 PM [facility] REPOSITORY O ID: [id number] Author: Cierra (Danica) Facundo Service: (none) Author Type: Coat Fitter Type: Progress Notes Filed: 12/29/2017 4:11 PM Note Text: PSYCHOSOCIAL EVALUATION FOR KIDNEY TRANSPLANT Social Supports: Patients and bgggmj-wj-jln. Secondary support will need to be confirmed with addiction social worker. Financial Concerns: Present and her dialysis center is signing her [...] following the MDs recommendations. SIPAT: 24 REFERRAL: Juan Kelly was referred to Social Work for a psychosocial evaluation to establish if she would be a suitable candidate to receive a kidney transplant. She receives dialysis at [facility] on . The dialysis center phone number is . The pt does use assistive devices for ambulation when she is going long distances. She will use a wheelchair when needed. Currently she is in a penitentiary facility, [facility], in order to build up her strength and ambulation. DIALYSIS START DATE: April 2017 This social work psychosocial evaluation was completed with Juan Kelly on December 29, 2017. She was accompanied by her , Mateusz. Race/Gender: White female [place] Citizen: Yes IDENTIFYING INFORMATION/LIVING SITUATION Juan Kelly [id number] [address]. The home is a ranch style home. The patient is in a SNF working on ambulation. There are architectural barriers currently in the home until the patient regains strength. Patient states it takes 1 1/2 hours to get to CC. Juan Kelly has been living in this home since March. Juan Kelly is requires assistance with the following [...] LIVE 2.5 OR MORE HOURS AWAY FROM [facility]: Do you have the financial means to stay in the area for four weeks or more post-transplant? NA COMPREHENSION OF MEDICAL SITUATION Juan Kelly reports that her kidney disease is [...] had pneumonia and had to start dialysis. Juan Kelly was able to recall information that was presented to her today during the kidney transplant educational class. Juan Kelly does understand and, has knowledge of [...] she has a difficult time keeping track. cone worker empathized with patient and explained why [...] Called and spoke with patients dialysis center. RODRIGO [place], states the patient was just switched [...] hemoglobin 8.1. 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 Coping strategies: I just sit and cry Patient does not have the appropriate coping strategies to handle the potential stress of a transplant. Scientologist affiliation: Faith Stressors in life: Health issues, managing her life. Ever cope by using a substance: No SOCIAL NARRATIVE Juan Kelly grew up in [place], [place]. She is 47 years of age. Juan Kelly was raised by her biological mom and dad. Her dad worked at [employer] and her mom worked in a factory. 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 Pregnancies: 3 pregnancies Children: 3 children Edgar, patients daughter. 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 She works at [employer] and lives with her brother. Ronny, patients son. He is 19 years old and is in good health now. He had a tumor in his arm removed. He works at the [employer] owned [employer]. Prasad, patients son. He is 14 years old and is in good health currently but also had a tumor in his ear which caused a lost of earring in one of his ears. He is in school. EDUCATION Highest Educational Level: High School. Juan Kelly denies academic problems in school. Reading/Comprehension Problems Then or Now: No Computer Literacy: yes Access to Home Internet: yes EMPLOYMENT Service: No Eligible for VA Benefits: NA Work History: She has had a varied of jobs. 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 ? Contact Number: [phone] ? Health Status and Availability of Caregiver: good health, available as much as needed ? Valid Collet Gluer's License/Working Vehicle: yes, yes ? Caregiver Substance Use: no ? Caregiver Mental Health: no Secondary Caregiver: Ewa Cosme, patients ibojxp-nw-raq. She is 44 years old and works for [employer] as a addiction social worker. ? Contact Number: [phone] ? Health Status and Availability: good health, per patient she could take time off of work if needed ? Valid Collet Gluer's License/Working Vehicle: yes, yes ? Caregiver Substance [...] support will need to be confirmed with addiction social worker. ? Body Image/Scar: No IMPRESSIONS/RECOMMENDATIONS At this time, Juan Kelly is not yet a suitable psychosocial candidate for a kidney transplant until her secondary support is confirmed, she is cleared by transplant psychiatry and shows mental health stability. There are no other psychosocial concerns that could have a negative impact on the successful and sustained outcome of a kidney transplant. The patient will have social supports from her and her kraiod-kz-nnx. Secondary support will need to be confirmed with addiction social worker. The patient explains she will have other family and friends to assist her as well. The patient has agencyQ insurance and is in the process of applying for ESRD medicare. cone worker explained the patient and her family will need to prepare for potential transplant cost and expenses. The patient compliance is unknown at this time. Explained by the dialysis center the patient was just recently switched to hemo dialysis due to infections and noncompliance with managing her PD dialysis. The patient is currently living in a penitentiary home due to weakness in ambulation from [...] precautions to take because of being immunosuppressed. Juan Kelly was advised that it is imperative to adhere to the medical regimen and recovery restrictions. Juan Kelly indicated understanding of this information. Juan Kelly had the opportunity to discuss any issues and questions. Patient was given information and brochures about the kidney transplant process and fund raising options. The patient was given the phone number of the transplant addiction social worker to address future concerns. ROMAIN Cruz, LEMUEL Transplant Coat Fitter PROGRESS Observed: 12/29/2017 Status: COMPLETED Source: [place] 12:01 PM [facility] REPOSITORY O ID: [id number] Author: Jim Monae) Sun Service: (none) Author Type: Registered Dietitian Type: [...] Assessment/15 minutes, 3 increment(s), 45 minutes SIGNATURE: Jim Garsia RD PATIENT NAME: Juan Kelly DATE: December 29, 2017 TIME: 12:01 PM PAGER: [phone] CT ABD/PEL WO IVCON Observed: 12/29/2017 Status: F Source: [place] 11:38 AM [facility] REPOSITORY * * *Final Report* * * DATE OF EXAM: Dec 29 2017 11:38AM [facility] 0531 - CT ABD/PEL WO IVCON / [...] ATHEROSCLEROTIC CALCIFICATION OF THE AORTOILIAC SYSTEM DESCRIBED. Pharmacology Professor: MANSOOR Transcribe Date/Time: Dec 29 2017 11:51A Dictated by : PARRISH WATT MD This examination was interpreted and the report reviewed and electronically signed by: KANNAN URAIRTE MD on Dec 29 2017 12:39PM EST [id number] PROGRESS Observed: 12/29/2017 Status: COMPLETED Source: [place] 11:22 AM [facility] REPOSITORY HNO ID: [id number] Author: NABOR Martinez (Ct) Service: Radiology Author Type: Clinical Cigar Maker Type: Progress Notes Filed: 12/29/2017 11:33 AM Note Text: Radiology Service Progress Note PATIENT NAME: Juan Kelly DATE OF SERVICE: December 29, 2017 [...] AM PROGRESS Observed: 12/29/2017 Status: COMPLETED Source: [place] 11:15 AM [facility] REPOSITORY HNO ID: [id number] Author: Jose M Cooper Service: (none) Author Type: (none) Type: Progress Notes Filed: 12/29/2017 11:15 AM Note Text: Radiology Service Progress Note PATIENT NAME: Juan Kelly DATE OF SERVICE: December 29, 2017 [...] 2V FRONTAL/LAT Observed: 12/29/2017 Status: F Source: [place] 11:05 AM [facility] REPOSITORY * * *Final Report* * * [...] IMPRESSION: Please see body of the report. Pharmacology Professor: MANSOOR Transcribe Date/Time: Dec 29 2017 2:32P Dictated by : RASHID LINK MD This examination was interpreted and the report reviewed and electronically signed by: RASHID LINK MD on Dec 29 2017 2:34PM EST [id number] PROGRESS Observed: 12/29/2017 Status: COMPLETED Source: [place] 10:20 AM [facility] REPOSITORY HNO ID: [id number] Author: Leah Thornton (Rn) RODRIGO Alvarez Service: (none) Author Type: Registered Nurse [...] call with any further issues Referral/Recommendation: None Leah Alvarez RN Pre-Liner Machine Operator Helper CNCNPATED Observed: 12/29/2017 Status: COMPLETED Source: [place] 10:15 AM [facility] REPOSITORY Education (DTBAMN) JUAN KELLY ([id number]) 1970 F TRN Date Time Provider Department 12/29/17 10:15 AM JIM GARSIA (CHAZ) DTBAMN Reason for Visit: Patient Education [91] Assessment [673] Progress Notes: Jim Garsia RD 12/29/2017 12:02 PM Signed AMBULATORY [...] Assessment/15 minutes, 3 increment(s), 45 minutes SIGNATURE: Jim Garsia RD PATIENT NAME: Juan Kelly DATE: December 29, 2017 TIME: 12:01 PM PAGER: [phone] Primary Visit Diagnosis:Awaiting organ transplant status [Z76.82] [...] - Swelling Date Reviewed: 12/29/2017 Reviewed by: Jim Jennings (Chaz) Sun - Fully Assessed Prescriptions as of 12/29/2017 [...] MG TABLET CALCIUM ACETATE 667 MG CAPSULE DIRECTOR OF TEACHER EDUCATION-ROSLYN RX 1 MG-60 MG-300 MCG* Encounter Status:Closed by JIM GARSIA on 12/29/17 CNOV Observed: 12/29/2017 Status: COMPLETED Source: [place] 7:45 AM [facility] REPOSITORY Office Visit (TXCTGL) JUAN KELLY ([id number]) 1970 F TRN Date Time Provider Department 12/29/17 7:45 AM PRE TX GROUP EDUCATION TXCTGL During your visit today, we recorded the following information about you: Leah Alvarez RN, RN 12/31/2017 4:08 PM Signed [...] call with any further issues Referral/Recommendation: None Leah Alvarez RN Pre-Liner Machine Operator Helper Referring Provider: WINSTON CAI [[id number]] Allergies As of Date: 12/29/2017 Noted Allergy Reaction AUGMENTIN (AMOXICILLIN-POT CLAVUL*07/22/2017 11 - Vomiting BACTRIM (SULFAMETHOXAZOLE-TRIMETH*07/22/2017 14 - Other: See Comments Comments: Chest pain BUSPAR (BUSPIRONE HCL) 10/22/2017 14 - Other: See Comments Comments: Night terrors BRYCE (FUROSEMIDE) 07/22/2017 7 - Swelling Date Reviewed: [...] once kailash* CALCIUM ACETATE 667 MG CAPSULE DIRECTOR OF TEACHER EDUCATION-ROSLYN RX 1 MG-60 MG-300 MCG* X ALPRAZOLAM 0.25 MG TABLET Problem List As Of Date 12/29/2017 Noted Resolved ESRD (end stage renal disease) (HCC) [N18.6] INVALID FOR* More... Multiple gastric ulcers [K25.9] Anxiety [F41.9] Depression [F32.9] Encounter Status:Closed by LEAH ALVAREZ on 12/31/17 CBC Collected: 12/22/2017 Status: F Source: [facility] 5:07 AM [facility] REPOSITORY TYPE CODE TESTS RESULT [...] #### CBC, BMP, GFR, DIFF, MORPH #### [place] [address] BMP Collected: 12/22/2017 Status: F Source: [facility] 5:07 AM [facility] REPOSITORY TYPE CODE [...] #### CBC, BMP, GFR, DIFF, MORPH #### [address] [address] .GFR Collected: 12/22/2017 Status: F Source: [facility] 5:07 AM [facility] REPOSITORY TYPE CODE TESTS RESULT OUT OF REFERENCE UNITS RANGE LAB GFRAA(LOINC ml/min/1.73 ) sqm GFR 9 Libyan Result Comment: GFR Population mean for , [...] #### CBC, BMP, GFR, DIFF, MORPH #### [place] [address] .MANUAL DIFF Collected: 12/22/2017 Status: F Source: [facility] 5:07 AM [facility] REPOSITORY TYPE CODE [...] #### CBC, BMP, GFR, DIFF, MORPH #### [place] [address] .MORPH Collected: 12/22/2017 Status: F Source: [facility] 5:07 AM [facility] REPOSITORY TYPE CODE TESTS RESULT OUT OF REFERENCE UNITS RANGE LAB PLTE(LOINC) Platelet Normal Estimate LAB RBCM(LOINC) RBC Morph Normal Performed By: #### CBC, BMP, GFR, DIFF, MORPH #### [place] [address] VANCR Collected: 12/22/2017 Status: F Source: [facility] 5:07 AM [facility] REPOSITORY TYPE CODE TESTS RESULT OUT OF REFERENCE UNITS RANGE LAB LD021(LOIN C) LDose Vancomycin: See eMAR (random) LAB VANR(LOINC mcg/mL ) Vancomycin Lvl 21.6 (random) Result Comment: No normal reference range reported for random vancomycin testing. Performed By: #### VANCR #### [place] [address] CBC Collected: 12/21/2017 Status: F Source: [facility] 5:52 AM [facility] REPOSITORY TYPE CODE [...] #### CBC, BMP, GFR, DIFF, MORPH #### [address] [address] BMP Collected: 12/21/2017 Status: F Source: [facility] 5:52 AM [facility] REPOSITORY TYPE CODE [...] #### CBC, BMP, GFR, DIFF, MORPH #### [address] [address] .GFR Collected: 12/21/2017 Status: F Source: [facility] 5:52 AM [facility] REPOSITORY TYPE CODE TESTS RESULT OUT OF REFERENCE UNITS RANGE LAB GFRAA(LOINC ml/min/1.73 ) sqm GFR 11 Libyan Result Comment: GFR Population mean for , [...] #### CBC, BMP, GFR, DIFF, MORPH #### [place] [address] .MANUAL DIFF Collected: 12/21/2017 Status: F Source: [facility] 5:52 AM [facility] REPOSITORY TYPE CODE [...] #### CBC, BMP, GFR, DIFF, MORPH #### [place] [address] .MORPH Collected: 12/21/2017 Status: F Source: [facility] 5:52 AM [facility] REPOSITORY TYPE CODE TESTS RESULT OUT OF REFERENCE UNITS RANGE LAB PLTE(LOINC) Platelet Normal Estimate LAB RBCM(LOINC) RBC Morph Normal Performed By: #### CBC, BMP, GFR, DIFF, MORPH #### [place] [address] UA Collected: 12/20/2017 Status: F Source: [facility] 5:57 AM [facility] REPOSITORY TYPE CODE TESTS RESULT OUT OF RANGE REFERENCE UNITS LAB SPCUA(LIZETT NC) UA Specimen Type Void LAB CLRUA(LIZTET NC) UA Color Yellow LAB APPUA(LIZETT Clear [...] Small Performed By: #### UA, UAMIC #### [place] [address] UAMIC Collected: 12/20/2017 Status: F Source: [facility] 5:57 AM [facility] REPOSITORY TYPE CODE [...] 0-2 Performed By: #### UA, UAMIC #### [place] [address] Observed: 12/20/2017 Status: F Source: [facility] 5:57 AM [facility] REPOSITORY [...] Locations *1: This test was performed at: [facility], [address] [place] [address], [address] Performed By: #### COLETTE #### [place] [address] Observed: 12/20/2017 Status: F [facility]: [facility] 5:57 AM [facility] REPOSITORY . MICRO [...] Locations *1: This test was performed at: [address] Performed By: #### SPAG #### [place] [address] CBC Collected: 12/20/2017 Status: F Source: [facility] 5:25 AM [facility] REPOSITORY TYPE CODE [...] #### CBC, ADIFF, ANEU, BMP, GFR #### [place] [address] .AUTO DIFF Collected: 12/20/2017 Status: F Source: [facility] 5:25 AM [facility] REPOSITORY TYPE CODE [...] #### CBC, ADIFF, ANEU, BMP, GFR #### [place] [address] .NEUABS Collected: 12/20/2017 Status: F Source: [facility] 5:25 AM [facility] REPOSITORY TYPE CODE TESTS RESULT OUT OF REFERENCE UNITS RANGE LAB ANEU(LOINC) 2.25-8.10 10 3/mcL High Neutrophil, 17.70 Absolute Performed By: #### CBC, ADIFF, ANEU, BMP, GFR #### [place] [address] BMP Collected: 12/20/2017 Status: F Source: [facility] 5:25 AM [facility] REPOSITORY TYPE CODE [...] #### CBC, ADIFF, ANEU, BMP, GFR #### [place] [address] .GFR Collected: 12/20/2017 Status: F Source: [facility] 5:25 AM [facility] REPOSITORY TYPE CODE TESTS RESULT OUT OF REFERENCE UNITS RANGE LAB GFRAA(LOINC ml/min/1.73 ) sqm GFR 8 Libyan Result Comment: GFR Population mean for , [...] #### CBC, ADIFF, ANEU, BMP, GFR #### [place] [address] VANCR Collected: 12/20/2017 Status: F Source: [facility] 5:25 AM [facility] REPOSITORY TYPE CODE TESTS RESULT OUT OF REFERENCE UNITS RANGE LAB LD021(LOIN C) LDose Vancomycin: See eMAR (random) LAB VANR(LOINC mcg/mL ) Vancomycin Lvl 19.9 (random) Result Comment: No normal reference range reported for random vancomycin testing. Performed By: #### VANCR #### [place] [address] HEPAC Collected: 12/19/2017 Status: F Source: [facility] 6:41 PM [facility] REPOSITORY TYPE CODE TESTS [...] Int infection. Performed By: #### HEPAC #### [place] [address] IR TEMPORARY DIALYSIS Observed: 12/19/2017 Status: F Source: [facility] CATHETER 2:00 PM [facility] REPOSITORY ORIGINAL IR [...] with sequentially larger vessel dilators. A 14 Filipino 15 cm SLX Dual Lumen catheter was [...] procedure was performed by Gaby Wood, Physician Offset Printer. I concur with the contents of the report. Interpreted By: Glynn Rashid MD Preliminary Report By: Gaby Wood PA Electronically Signed By: Glynn Rashid MD Dictated Date: 12/19/2017 5:29:57 PM Prelim Date: 12/19/2017 5:35:10 PM Sign Date: 12/19/2017 8:45:31 PM IR TUNNELED PICC Observed: 12/19/2017 Status: F Source: [facility] PLACEMENT 2:00 PM [facility] REPOSITORY ORIGINAL PROCEDURE: 1. Tunneled PICC line placement with fluoroscopy and ultrasound, 12/19/2017 CLINICAL HISTORY: Patient requires IV access for long-term antibiotic therapy. COMPARISON: None MATERIALS UTILIZED: 6 Filipino Medcomp tunneled PICC, 26 cm cuff to [...] procedure was performed by Gaby Wood, Physician Offset Printer. I concur with the contents of the report. Interpreted By: Glynn Rashid MD Preliminary Report By: Gaby Wood DC Electronically Signed By: Glynn Rashid MD Dictated Date: 12/19/2017 5:53:49 PM Prelim Date: 12/19/2017 6:22:42 PM Sign Date: 12/19/2017 8:45:00 PM PROGRESS Observed: 12/19/2017 Status: COMPLETED Source: [place] 11:27 AM [facility] REPOSITORY HNO ID: [id number] Author: Kannan Narayanan) Demetra Service: (none) Author Type: Physician Type: Progress Notes Filed: 12/19/2017 11:27 AM Note Text: Noted. PROGRESS Observed: 12/19/2017 Status: COMPLETED Source: [place] 10:26 AM [facility] REPOSITORY HNO ID: [id number] Author: Arvind Escalante) Anibal Service: (none) Author Type: Registered Nurse Type: Progress Notes Filed: 12/19/2017 10:41 AM Note Text: PRIMARY CARE COORDINATION FOLLOW-UP NOTE Provider Action/FYI Please note Patient identified by name and date of . YES Spoke to BENITEZ Jin at [facility] Summary: Pt doesn't have any discharge plan at this time. States she is going be transitioned from peritoneal to hemodialysis. She was still having hallucinations several days ago. Pt is expected to be transferred to [facility] because she is going to be on long ter IV antibiotics. Asked to please call PCC at patient's discharge to SNF, verbalized agreement. Pest Technician plan for next outreach: Will follow up at transition from hospital to SNF Signature Arvind Arellano RN December 19, 2017 HEPAC Collected: 12/19/2017 Status: F Source: [facility] 10:16 AM [facility] REPOSITORY TYPE CODE TESTS [...] Int infection. Performed By: #### HEPAC #### [place] [address] CBC Collected: 12/19/2017 Status: F Source: [facility] 7:08 AM [facility] REPOSITORY TYPE CODE [...] #### CBC, BMP, GFR, DIFF, MORPH #### [address] [address] BMP Collected: 12/19/2017 Status: F Source: [facility] 7:08 AM [facility] REPOSITORY TYPE CODE [...] #### CBC, BMP, GFR, DIFF, MORPH #### [address] [address] .GFR Collected: 12/19/2017 Status: F Source: [facility] 7:08 AM [facility] REPOSITORY TYPE CODE TESTS RESULT OUT OF REFERENCE UNITS RANGE LAB GFRAA(LOINC ml/min/1.73 ) sqm GFR 7 Libyan Result Comment: GFR Population mean for , [...] #### CBC, BMP, GFR, DIFF, MORPH #### [place] [address] .MANUAL DIFF Collected: 12/19/2017 Status: F Source: [facility] 7:08 AM [facility] REPOSITORY TYPE CODE [...] #### CBC, BMP, GFR, DIFF, MORPH #### [address] [address] .MORPH Collected: 12/19/2017 Status: F Source: [facility] 7:08 AM [facility] REPOSITORY TYPE CODE TESTS RESULT OUT OF REFERENCE UNITS RANGE LAB PLTE(LOINC) Platelet Normal Estimate LAB RBCM(LOINC) RBC Morph Normal Performed By: #### CBC, BMP, GFR, DIFF, MORPH #### [address] [address] CNPTOUTREACH Observed: 12/19/2017 Status: COMPLETED Source: [place] 12:00 AM [facility] REPOSITORY Patient Outreach (FAMPWS) JUAN KELLY ([id number]) 1970 F TRN Date Time Provider Department 12/19/17 ARVIND ARELLANO) YIFANWS During your visit today, we recorded the following information about you: Arvind Arellano RN 12/19/2017 10:41 AM Signed PRIMARY CARE COORDINATION FOLLOW-UP NOTE Provider Action/FYI Please note Patient identified by name and date of . YES Spoke to BENITEZ Jin at [facility] Summary: Pt doesn't have any discharge plan at this time. States she is going be transitioned from peritoneal to hemodialysis. She was still having hallucinations several days ago. Pt is expected to be transferred to [facility] because she is going to be on long ter IV antibiotics. Asked to please call PCC at patient's discharge to SNF, verbalized agreement. Pest Technician plan for next outreach: Will follow up at transition from hospital to SNF Signature Arvind Arellano RN December 19, 2017 Kannan Gamble [...] Ma - Fully Assessed Reason for Visit: [facility] Follow Up [3613] Prescriptions as of 12/19/2017 Sig: CYCLOBENZAPRINE 5 [...] MG TABLET CALCIUM ACETATE 667 MG CAPSULE DIRECTOR OF TEACHER EDUCATION-ROSLYN RX 1 MG-60 MG-300 MCG* Problem List As Of Date 12/19/2017 Noted Resolved ESRD (end stage renal disease) (HCC) [N18.6] INVALID FOR* More... Multiple gastric ulcers [K25.9] Anxiety [F41.9] Depression [F32.9] Encounter Status:Closed by ANIBALTEREHY on 12/19/17 Observed: 12/18/2017 Status: F Source: [facility] 2:53 PM [facility] REPOSITORY . MICRO - Microbiology PROCEDURE: Fungal [...] Locations *1: This test was performed at: [facility], [address] [place] [address], [facility] , [facility] Performed By: #### CFU #### [place] [address] BFCT Collected: 12/18/2017 Status: C Source: [facility] 1:46 PM [facility] REPOSITORY TYPE CODE [...] BF 6 Performed By: #### BFCT #### [address] [address] CBC Collected: 12/18/2017 Status: F Source: [facility] 6:06 AM [facility] REPOSITORY TYPE CODE [...] BMP, TSH, FT4, FT3, GFR, VANCR #### [address] [address] .AUTO DIFF Collected: 12/18/2017 Status: F Source: [facility] 6:06 AM [facility] REPOSITORY TYPE CODE [...] BMP, TSH, FT4, FT3, GFR, VANCR #### [place] [address] .NEUABS Collected: 12/18/2017 Status: F Source: [facility] 6:06 AM [facility] REPOSITORY TYPE CODE TESTS RESULT OUT OF REFERENCE UNITS RANGE LAB ANEU(LOINC) 2.25-8.10 10 3/mcL High Neutrophil, 15.30 Absolute Performed By: #### CBC, ADIFF, ANEU, BMP, TSH, FT4, FT3, GFR, VANCR #### [place] [address] BMP Collected: 12/18/2017 Status: F Source: [facility] 6:06 AM [facility] REPOSITORY TYPE CODE [...] BMP, TSH, FT4, FT3, GFR, VANCR #### [place] [address] TSH Collected: 12/18/2017 Status: F Source: [facility] 6:06 AM [facility] REPOSITORY TYPE CODE TESTS RESULT OUT OF RANGE REFERENCE UNITS LAB TSH(LOINC) 0.360-3.740 mcIU/mL High TSH 14.300 Result Comment: Please note as of 08/31/16 new pediatric reference intervals were added for this test. Performed By: #### CBC, ADIFF, ANEU, BMP, TSH, FT4, FT3, GFR, VANCR #### [address] [address] FT4 Collected: 12/18/2017 Status: F Source: [facility] 6:06 AM [facility] REPOSITORY TYPE CODE TESTS RESULT OUT OF RANGE REFERENCE UNITS LAB FT4(LOINC) 0.60-1.70 ng/dL Free T4 0.89 Result Comment: Please note as of 08/31/16 new pediatric reference intervals were added for this test. Performed By: #### CBC, ADIFF, ANEU, BMP, TSH, FT4, FT3, GFR, VANCR #### [address] [address] FT3 Collected: 12/18/2017 Status: F Source: [facility] 6:06 AM [facility] REPOSITORY TYPE CODE TESTS RESULT OUT OF RANGE REFERENCE UNITS LAB FT3(LOINC) 2.30-4.20 pg/mL Low Free T3 0.97 Result Comment: Please note as of 08/31/16 new pediatric reference intervals were added for this test. Performed By: #### CBC, ADIFF, ANEU, BMP, TSH, FT4, FT3, GFR, VANCR #### [address] [address] .GFR Collected: 12/18/2017 Status: F Source: [facility] 6:06 AM [facility] REPOSITORY TYPE CODE TESTS RESULT OUT OF REFERENCE UNITS RANGE LAB GFRAA(LOINC ml/min/1.73 ) sqm GFR 8 Libyan Result Comment: GFR Population mean for , [...] BMP, TSH, FT4, FT3, GFR, VANCR #### [address] [address] VANCR Collected: 12/18/2017 Status: F Source: [facility] 6:06 AM [facility] REPOSITORY TYPE CODE TESTS RESULT OUT OF REFERENCE UNITS RANGE LAB LD021(LOIN C) LDose Vancomycin: See eMAR (random) LAB VANR(LOINC mcg/mL ) Vancomycin Lvl 17.9 (random) Result Comment: No normal reference range reported for random vancomycin testing. Performed By: #### CBC, ADIFF, ANEU, BMP, TSH, FT4, FT3, GFR, VANCR #### [address] [address] CBC Collected: 12/17/2017 Status: F Source: [facility] 4:44 AM [facility] REPOSITORY TYPE CODE [...] MG, BMP, FOL, FT4, GFR, B12 #### [address] [address] .AUTO DIFF Collected: 12/17/2017 Status: F Source: [facility] 4:44 [facility] [place] REPOSITORY TYPE CODE TESTS RESULT OUT OF [...] MG, BMP, FOL, FT4, GFR, B12 #### [address] [address] .NEUABS Collected: 12/17/2017 Status: F Source: [facility] 4:44 AM [facility] REPOSITORY TYPE CODE TESTS RESULT OUT OF REFERENCE UNITS RANGE LAB ANEU(LOINC) 2.25-8.10 10 3/mcL High Neutrophil, 12.60 Absolute Performed By: #### CBC, ADIFF, ANEU, MG, BMP, FOL, FT4, GFR, B12 #### [place] [address] MG Collected: 12/17/2017 Status: F Source: [facility] 4:44 AM [facility] REPOSITORY TYPE CODE TESTS RESULT OUT OF REFERENCE UNITS RANGE LAB MG(LOINC) 1.6-2.4 mg/dL Magnesium Lvl 2.0 Performed By: #### CBC, ADIFF, ANEU, MG, BMP, FOL, FT4, GFR, B12 #### [place] [address] BMP Collected: 12/17/2017 Status: F Source: [facility] 4:44 AM [facility] REPOSITORY TYPE CODE [...] MG, BMP, FOL, FT4, GFR, B12 #### [place] [address] FOL Collected: 12/17/2017 Status: F Source: [facility] 4:44 AM [facility] REPOSITORY TYPE CODE TESTS RESULT OUT OF REFERENCE UNITS RANGE LAB FOL(LOINC) 1.1-20.0 ng/mL Folate 15.4 Performed By: #### CBC, ADIFF, ANEU, MG, BMP, FOL, FT4, GFR, B12 #### [address] [address] FT4 Collected: 12/17/2017 Status: F Source: [facility] 4:44 AM [facility] REPOSITORY TYPE CODE TESTS RESULT OUT OF RANGE REFERENCE UNITS LAB FT4(LOINC) 0.60-1.70 ng/dL Free T4 0.88 Result Comment: Please note as of 08/31/16 new pediatric reference intervals were added for this test. Performed By: #### CBC, ADIFF, ANEU, MG, BMP, FOL, FT4, GFR, B12 #### [address] [address] .GFR Collected: 12/17/2017 Status: F Source: [facility] 4:44 AM [facility] REPOSITORY TYPE CODE TESTS RESULT OUT OF REFERENCE UNITS RANGE LAB GFRAA(LOINC ml/min/1.73 ) sqm GFR 7 Libyan Result Comment: GFR Population mean for , [...] MG, BMP, FOL, FT4, GFR, B12 #### [facility] [address] [place] [address] B12 Collected: 12/17/2017 Status: F Source: [facility] 4:44 AM [facility] REPOSITORY TYPE CODE TESTS RESULT OUT OF REFERENCE UNITS RANGE LAB B12(LOINC) 211-911 pg/mL High Vitamin B12 1127 Lvl Performed By: #### CBC, ADIFF, ANEU, MG, BMP, FOL, FT4, GFR, B12 #### [facility] [address] [place] [address] Observed: 12/16/2017 Status: F Source: [facility] 10:40 AM [facility] REPOSITORY . MICRO [...] Locations *1: This test was performed at: [facility], [address] [place] [address], [facility] , [facility] Performed By: #### CBF #### [place] [address] CBC Collected: 12/16/2017 Status: F Source: [facility] 5:08 AM [facility] REPOSITORY TYPE CODE [...] VIDH, BMP, TSH, GFR, VANCR, PREGS #### [place] [address] .AUTO DIFF Collected: 12/16/2017 Status: F Source: [facility] 5:08 AM [facility] REPOSITORY TYPE CODE [...] VIDH, BMP, TSH, GFR, VANCR, PREGS #### [place] [address] .NEUABS Collected: 12/16/2017 Status: F Source: [facility] 5:08 AM [facility] REPOSITORY TYPE CODE TESTS RESULT OUT OF REFERENCE UNITS RANGE LAB ANEU(LOINC) 2.25-8.10 10 3/mcL High Neutrophil, 12.50 Absolute Performed By: #### CBC, ADIFF, ANEU, VIDH, BMP, TSH, GFR, VANCR, PREGS #### [place] [address] VIDH Collected: 12/16/2017 Status: F Source: [facility] 5:08 AM [facility] REPOSITORY TYPE CODE TESTS RESULT OUT OF RANGE REFERENCE UNITS LAB VIDH(LOINC) ng/mL Vit. D 18 25-Hydroxy Result Comment: Interpretive Values Based on Total 25(OH)D: Severe Deficiency <20 ng/mL Mild to Moderate Deficiency 20-30 ng/mL Optimum Levels 30-100 ng/mL Toxicity Possible >100 ng/mL Performed By: #### CBC, ADIFF, ANEU, VIDH, BMP, TSH, GFR, VANCR, PREGS #### [place] [address] BMP Collected: 12/16/2017 Status: F Source: [facility] 5:08 AM [facility] REPOSITORY TYPE CODE [...] VIDH, BMP, TSH, GFR, VANCR, PREGS #### [place] [address] TSH Collected: 12/16/2017 Status: F Source: [facility] 5:08 AM [facility] REPOSITORY TYPE CODE TESTS RESULT OUT OF RANGE REFERENCE UNITS LAB TSH(LOINC) 0.360-3.740 mcIU/mL High TSH 16.400 Result Comment: Please note as of 08/31/16 new pediatric reference intervals were added for this test. Performed By: #### CBC, ADIFF, ANEU, VIDH, BMP, TSH, GFR, VANCR, PREGS #### [place] [id number] .GFR Collected: 12/16/2017 Status: F Source: [facility] 5:08 AM [facility] REPOSITORY TYPE CODE TESTS RESULT OUT OF REFERENCE UNITS RANGE LAB GFRAA(LOINC ml/min/1.73 ) sqm GFR 7 Libyan Result Comment: GFR Population mean for , [...] VIDH, BMP, TSH, GFR, VANCR, PREGS #### [place] [address] VANCR Collected: 12/16/2017 Status: F Source: [facility] 5:08 AM [facility] REPOSITORY TYPE CODE TESTS RESULT OUT OF REFERENCE UNITS RANGE LAB LD021(LOIN C) LDose Vancomycin: See eMAR (random) LAB VANR(LOINC mcg/mL ) Vancomycin Lvl 23.0 (random) Result Comment: No normal reference range reported for random vancomycin testing. Performed By: #### CBC, ADIFF, ANEU, VIDH, BMP, TSH, GFR, VANCR, PREGS #### [address] [address] PREGS Collected: 12/16/2017 Status: F Source: [facility] 5:08 AM [facility] REPOSITORY TYPE CODE TESTS RESULT OUT OF RANGE REFERENCE UNITS LAB PRGS(LOINC ) test Negative (s) LAB PRGSIN(LIZETT NC) Unknown test HCG not (s) int detected. Performed By: #### CBC, ADIFF, ANEU, VIDH, BMP, TSH, GFR, VANCR, PREGS #### [address] [address] MRI FEMUR W/O Observed: 12/15/2017 Status: F Source: [facility] CONTRAST RIGHT 5:45 PM [facility] REPOSITORY ORIGINAL MRI FEMUR W/O CONTRAST RIGHT incomplete nondiagnostic study CLINICAL STATEMENT: mottled osseous density of bones on X ray , pain in the leg, history of fall, abnormal radiographs COMPARISON: Radiographs 12/14/2017 FINDINGS: The patient is unable to hold still and follow directions for the required duration of the study despite attempting medication. Only automotive parts counterperson images of the femurs are obtained. No [...] PM BFCT Collected: 12/15/2017 Status: C Source: [facility] 11:45 AM [facility] REPOSITORY TYPE CODE [...] BF 100 Performed By: #### BFCT #### [place] [address] CAION Collected: 12/15/2017 Status: F Source: [facility] 10:52 AM [facility] REPOSITORY Order Comment: add on to blood in lab TYPE CODE TESTS RESULT OUT OF REFERENCE UNITS RANGE LAB CAION(LOINC 1.12-1.32 mmol/L ) Low Calcium 0.94 Ionized Performed By: #### CAION #### [place] [address] VANCR Collected: 12/15/2017 Status: F Source: [facility] 10:52 AM [facility] REPOSITORY TYPE CODE TESTS RESULT OUT OF REFERENCE UNITS RANGE LAB LD021(LOIN C) LDose Vancomycin: See eMAR (random) LAB VANR(LOINC mcg/mL ) Vancomycin Lvl 22.9 (random) Result Comment: No normal reference range reported for random vancomycin testing. Performed By: #### VANCR #### [address] [address] CBC Collected: 12/15/2017 Status: C Source: [facility] 4:38 AM [facility] REPOSITORY TYPE CODE [...] #### CBC, ADIFF, ANEU, BMP, GFR #### [address] [address] .AUTO DIFF Collected: 12/15/2017 Status: F Source: [facility] 4:38 AM [facility] REPOSITORY TYPE CODE [...] #### CBC, ADIFF, ANEU, BMP, GFR #### [place] [address] .NEUABS Collected: 12/15/2017 Status: F Source: [facility] 4:38 AM [facility] REPOSITORY TYPE CODE TESTS RESULT OUT OF REFERENCE UNITS RANGE LAB ANEU(LOINC) 2.25-8.10 10 3/mcL High Neutrophil, 10.50 Absolute Performed By: #### CBC, ADIFF, ANEU, BMP, GFR #### [place] [address] BMP Collected: 12/15/2017 Status: F Source: [facility] 4:38 AM [facility] REPOSITORY TYPE CODE [...] #### CBC, ADIFF, ANEU, BMP, GFR #### [place] [address] .GFR Collected: 12/15/2017 Status: F Source: [facility] 4:38 AM [facility] REPOSITORY TYPE CODE TESTS RESULT OUT OF REFERENCE UNITS RANGE LAB GFRAA(LOINC ml/min/1.73 ) sqm GFR 6 Libyan Result Comment: GFR Population mean for , [...] #### CBC, ADIFF, ANEU, BMP, GFR #### [place] [address] XR TIBIA/FIBULA 2 VIEWS Observed: 12/14/2017 Status: F Source: [facility] 2:30 PM [facility] REPOSITORY ORIGINAL XR TIBIA/FIBULA 2 VIEWS RIGHT [...] THREE VIEWS Observed: 12/14/2017 Status: F Source: [facility] 2:15 PM [facility] REPOSITORY ORIGINAL XR KNEE THREE VIEWS RIGHT [...] MINIMUM 2 Observed: 12/14/2017 Status: F Source: [facility] VIEWS RIGHT 2:00 PM [facility] REPOSITORY ORIGINAL XR FEMUR MINIMUM 2 VIEWS RIGHT CLINICAL STATEMENT: pain in rt leg, h/o fall COMPARISON: None FINDINGS: The proximal femur appears intact. There is no periostitis or fracture. There is degenerative change in the RIGHT hip. Femoral morphology places the patient risk for impingement syndrome. Josy led osseous density noted. The distal femur is not included in the jbryn-bp-uwjy. There is atherosclerosis. IMPRESSION: 1. No acute fracture in the proximal aspect of the RIGHT femur. The distal femur is not included in the llids-ue-sdxm. A knee radiograph series is reported separately. [...] PM VANCR Collected: 12/14/2017 Status: F Source: [facility] 9:48 AM [facility] REPOSITORY TYPE CODE TESTS RESULT OUT OF REFERENCE UNITS RANGE LAB LD021(LOIN C) LDose Vancomycin: See eMAR (random) LAB VANR(LOINC mcg/mL ) Vancomycin Lvl 13.8 (random) Result Comment: No normal reference range reported for random vancomycin testing. Performed By: #### VANCR #### [place] [address] RESPID Collected: 12/14/2017 Status: F Source: [facility] 6:49 AM [facility] REPOSITORY TYPE CODE TESTS RESULT OUT OF REFERENCE UNITS RANGE LAB RESADENO( Not Detected LOINC) Adenovirus Not Detected LAB COVHKU1(L Not Detected OINC) Coronavirus HKU1 Not Detected LAB COVNL63(L Not Detected OINC) Coronavirus NL63 Not Detected LAB YbS398Z(L Not Detected OINC) Coronavirus 229E Not Detected [...] Not Detected Performed By: #### RESPID #### [address] [address] CBC Collected: 12/14/2017 Status: F Source: [facility] 4:54 AM [facility] REPOSITORY TYPE CODE [...] #### CBC, ADIFF, ANEU, BMP, GFR #### [place] [address] .AUTO DIFF Collected: 12/14/2017 Status: F Source: [facility] 4:54 AM [facility] REPOSITORY TYPE CODE [...] #### CBC, ADIFF, ANEU, BMP, GFR #### [address] [address] .NEUABS Collected: 12/14/2017 Status: F Source: [facility] 4:54 AM [facility] REPOSITORY TYPE CODE TESTS RESULT OUT OF REFERENCE UNITS RANGE LAB ANEU(LOINC) 2.25-8.10 10 3/mcL High Neutrophil, 9.30 Absolute Performed By: #### CBC, ADIFF, ANEU, BMP, GFR #### [place] [address] BMP Collected: 12/14/2017 Status: F Source: [facility] 4:54 AM [facility] REPOSITORY TYPE CODE [...] #### CBC, ADIFF, ANEU, BMP, GFR #### [address] [address] .GFR Collected: 12/14/2017 Status: F Source: [facility] 4:54 AM [facility] REPOSITORY TYPE CODE TESTS RESULT OUT OF REFERENCE UNITS RANGE LAB GFRAA(LOINC ml/min/1.73 ) sqm GFR 5 Libyan Result Comment: GFR Population mean for , [...] #### CBC, ADIFF, ANEU, BMP, GFR #### [address] [address] VANCR Collected: 12/13/2017 Status: F Source: [facility] 8:41 PM [facility] REPOSITORY TYPE CODE TESTS RESULT OUT OF REFERENCE UNITS RANGE LAB LD021(LOIN C) LDose Vancomycin: See eMAR (random) LAB VANR(LOINC mcg/mL ) Vancomycin Lvl 16.0 (random) Result Comment: No normal reference range reported for random vancomycin testing. Performed By: #### VANCR #### [address] [address] Observed: 12/13/2017 Status: F Source: [facility] 10:39 AM [facility] REPOSITORY . MICRO [...] Locations *1: This test was performed at: [address], [address] [place] [address] Performed By: #### CBL #### [place] [address] MYCO Collected: 12/13/2017 Status: F Source: [facility] 10:39 AM [facility] REPOSITORY TYPE CODE [...] method suggested. Performed By: #### MYCO #### [place] [address] Observed: 12/13/2017 Status: F Source: [facility] 10:38 AM [facility] REPOSITORY . MICRO [...] Locations *1: This test was performed at: [address], [address] [place] [address] Performed By: #### CBL #### [place] [address] Observed: 12/13/2017 Status: F Source: [facility] 8:33 AM [facility] REPOSITORY . MICRO [...] Locations *1: This test was performed at: [address], [address] [place] [address] Performed By: #### CFUNGB #### [place] [address] CBC Collected: 12/13/2017 Status: F Source: [facility] 6:07 AM [facility] REPOSITORY TYPE CODE TESTS [...] #### CBC, ADIFF, ANEU, BMP, GFR #### [address] [address] .AUTO DIFF Collected: 12/13/2017 Status: F Source: [facility] 6:07 [facility] REPOSITORY TYPE CODE TESTS RESULT OUT OF [...] #### CBC, ADIFF, ANEU, BMP, GFR #### [address] [address] .NEUABS Collected: 12/13/2017 Status: F Source: [facility] 6:07 [facility] [place] REPOSITORY TYPE CODE TESTS RESULT OUT OF REFERENCE UNITS RANGE LAB ANEU(LOINC) 2.25-8.10 10 3/mcL High Neutrophil, 10.20 Absolute Performed By: #### PRATEEK AGUIRRE ANEU, BMP, GFR #### [address] [address] BMP Collected: 12/13/2017 Status: F Source: [facility] 6:07 AM [facility] REPOSITORY TYPE CODE [...] Low Calcium Lvl 7.3 Performed By: #### PRATEEK AGUIRRE, ANEU, BMP, GFR #### [address] [address] .GFR Collected: 12/13/2017 Status: F Source: [facility] 6:07 AM [facility] REPOSITORY TYPE CODE TESTS RESULT OUT OF REFERENCE UNITS RANGE LAB GFRAA(LOINC ml/min/1.73 ) sqm GFR 5 Libyan Result Comment: GFR Population mean for , [...] #### CBC, ADIFF, ANEU, BMP, GFR #### [place] [address] LAC Collected: 12/12/2017 Status: F Source: [facility] 7:23 PM [facility] REPOSITORY TYPE CODE TESTS RESULT OUT OF REFERENCE UNITS RANGE LAB LAC(LOINC) 0.2-2.0 mmol/L Lactic Acid 0.7 Lvl Performed By: #### LAC #### [place] [address] XR CHEST 2 VIEWS Observed: 12/12/2017 Status: F Source: [facility] 5:49 PM [facility] REPOSITORY ORIGINAL XR [...] PM CBC Collected: 12/12/2017 Status: F Source: [facility] 5:46 PM [facility] REPOSITORY TYPE CODE [...] CBC, ADIFF, ANEU, CMP, GFR, AMM #### [place] [address] .AUTO DIFF Collected: 12/12/2017 Status: F Source: [facility] 5:46 PM [facility] REPOSITORY TYPE CODE [...] CBC, ADIFF, ANEU, CMP, GFR, AMM #### [place] [address] .NEUABS Collected: 12/12/2017 Status: F Source: [facility] 5:46 [facility] REPOSITORY TYPE CODE TESTS RESULT OUT OF REFERENCE UNITS RANGE LAB ANEU(LOINC) 2.25-8.10 10 3/mcL High Neutrophil, 11.10 Absolute Performed By: #### CBC, ADIFF, ANEU, CMP, GFR, AMM #### [place] [address] CMP Collected: 12/12/2017 Status: F Source: [facility] 5:46 [facility] REPOSITORY TYPE CODE TESTS RESULT OUT [...] CBC, ADIFF, ANEU, CMP, GFR, AMM #### [facility] [address] [place] [address] .GFR Collected: 12/12/2017 Status: F Source: [facility] 5:46 PM [facility] REPOSITORY TYPE CODE TESTS RESULT OUT OF REFERENCE UNITS RANGE LAB GFRAA(LOINC ml/min/1.73 ) sqm GFR 5 Libyan Result Comment: GFR Population mean for , [...] CBC, ADIFF, ANEU, CMP, GFR, AMM #### [address] [address] AMM Collected: 12/12/2017 Status: F Source: [facility] 5:46 PM [facility] REPOSITORY TYPE CODE TESTS RESULT OUT OF REFERENCE UNITS RANGE LAB AMM(LOINC) 25-35 mcmol/l Low Ammonia 20 Performed By: #### CBC, ADIFF, ANEU, CMP, GFR, AMM #### [address] [address] PROGRESS Observed: 12/11/2017 Status: COMPLETED Source: [place] 1:47 PM [facility] REPOSITORY HNO ID: [id number] Author: Arvind Escalante) Anibal Service: (none) Author Type: Registered Nurse Type: Progress Notes Filed: 12/11/2017 1:51 PM Note Text: PRIMARY CARE COORDINATION QUICK NOTE Provider Action/FYI Dilated Retinal Exam completed on 10/27/17 by [facility] HTN Retinopathy OU Patient identified by name and date . Arvind Arellano RN December 11, 2017 1:48 PM CNPN Observed: 12/11/2017 Status: COMPLETED Source: [place] 12:00 AM [facility] REPOSITORY [facility] JUAN KELLY ([id number]) 1970 F TRN Date Time Provider Department 12/11/17 [facility] During your visit today, we recorded the following information about you: Sharlene Dempsey LPN, HAYDEE 12/11/2017 10:01 AM Signed ----- Message from Kannan Gamble sent at 12/11/2017 9:19 AM EDT ----- Hemoglobin continues to decrease from last labs on 12/04. Down from 10.8 to 8.5. Needs to follow up with GI, continue pantoprazole, and receive Epogen shots as scheduled through nephrology. Noted minimal elevation in WBC and platelets, possibly 2/2 blood transfusions vs inflammatory process. Will recheck at future OV. Sharlene Dempsey, CONCRETE FOREMAN, CONCRETE FOREMAN 12/11/2017 10:08 AM Signed Spoke with pt [...] once kailash* CALCIUM ACETATE 667 MG CAPSULE DIRECTOR OF TEACHER EDUCATION-ROSLYN RX 1 MG-60 MG-300 MCG* X ALPRAZOLAM 0.25 MG TABLET Problem List As Of Date 12/11/2017 Noted Resolved ESRD (end stage renal disease) ([facility]) [N18.6] INVALID FOR* More... Multiple gastric ulcers [K25.9] Anxiety [F41.9] Depression [F32.9] Encounter Status:Closed by VANESA GROSS MA on 12/11/17 PROGRESS Observed: 12/10/2017 Status: COMPLETED Source: [place] 10:00 PM [facility] REPOSITORY HNO ID: [id number] Author: Kannan Narayanan) Demetra Service: (none) Author Type: Physician Type: Progress Notes Filed: 12/10/2017 10:00 PM Note Text: Reviewed. PROGRESS Observed: 12/10/2017 Status: COMPLETED Source: [place] 1:51 PM [facility] REPOSITORY HNO ID: [id number] Author: Arvind GomezRn) Anibal Service: (none) Author Type: Registered Nurse Type: Progress Notes Filed: 12/10/2017 2:33 PM Note Text: TRANSITION CARE MANAGEMENT (TCM) INITIAL CONTACT Provider Action/FYI: Saw pt with PCP at office visit Intake completed TC to [facility], asked to fax last visit note TC to Dr. Prieto, water resources project manager, asked to fax [facility] documents received, reviewed and placed on PCP's desk Initial contact with patient post discharge, spoke to patient and caregiver. Patient identified by name and . TRANSITION CARE MANAGEMENT: Date of Outreach: 12/10/2017 Outreach Attempt 1: Contact Made Date of Discharge 12/09/2017 Some recent data might be hidden SUMMARY: -Pt discharged from [facility] on 12/09. [facility] 11/25-12/04 -Follow up appointment on 12/10. -Medication [...] 2 units RBC, intubated and transferred to [facility] treated for: Acute Resp Failure, Acute K+ cardiac toxicity, Severe blood loss R/T UGI bleed upon chronic anemia, CRF stage V, Metabloic lactic acidosis and hx of DM and HTN Arvind Arellano RN December 10, 2017 2:26 PM PROGRESS Observed: 12/10/2017 Status: COMPLETED Source: [place] 1:51 PM [facility] REPOSITORY [facility] ID: [id number] Author: Arvind Escalante) Anibal Service: (none) Author Type: Registered Nurse Type: Progress Notes Filed: 12/10/2017 1:51 PM Note Text: PRIMARY CARE COORDINATION INTAKE Provider Action/FYI: FYI [...] Living arrangement Children; Spouse Support system Family; [place]les[place] based What is the health status of your caregiver? Fair Are there others that you care for? No (Has one child at home but cares for patient and child) Type of residence Private residence Home care services Yes Home care services Skilled care; PT/OT; Other (Enter Comment) ([facility] SHIFT LEAD) Equipment used at home Wheelchair; Walker; Other (Enter Comment) (Peritoneal dialysis equipment, toilet rails) Do you have any assistive devices to help you communicate? No Communication Barriers Visual impairment (Has blurred vision at times due to retinal issues) Have you been in any hospital and/or ED outside the [facility] in the Past 6 months? Yes [...] the patient's advance care planning wishes No Scientologist or spiritual beliefs that impact treatment No [...] In the last 12 months, has your [employer] shut off your service for not paying [...] often do you attend meeting for clubs, olesya-based organizations, or other social groups? More than [...] Psychoactive medications/medications with anticholinergic effects; Visual difficulties Arvind Arellano RN CBC AND DIFFERENTIAL Collected: 12/10/2017 Status: F Source: [place] 12:03 PM [facility] REPOSITORY TYPE CODE TESTS RESULT [...] k/uL Abs Lymph 1.04 LAB AMONO % Coffey% 11.5 LAB AAMONO <0.87 k/uL Abs Coffey High 1.29 LAB AEOS % Eosin% 0.8 LAB AAEOS <0.46 k/uL Abs Eosin 0.09 LAB ABASO % Baso% 0.4 LAB AABASO <0.11 k/uL Abs Baso 0.05 LAB AUNRBC 0 /100 WBC NRBCs 0.0 LAB ABNRBC <0.01 k/uL Absolute nRBC <0.01 LAB DTYP DTYPE Auto Diff Performed By: #### CBCDIF, CMP #### [facility] [address] [place], [place] [address] COMP METABOLIC PANEL Collected: 12/10/2017 Status: F Source: [place] 12:03 PM [facility] REPOSITORY TYPE CODE TESTS RESULT OUT OF REFERENCE UNITS RANGE LAB TP 6.3-8.0 g/dL Test reordered by [facility], [facility]. Total Result Comment: [place] [id number] Account Credited LAB ALB 3.9-4.9 g/dL Test Albumin reordered by [facility]. Result Comment: [place] [id number] Account Credited LAB CA 8.5-10.2 mg/dL Test Calcium, Total reordered by [facility]. Result Comment: [place] [address] Account Credited LAB TBIL 0.2-1.3 mg/dL Bilirubin, Test Total reordered by [facility]. Result Comment: [place] [address] Account Credited LAB ALKP 34-123 U/L Alkaline Test Phosphatase reordered by [facility]. Result Comment: [place] [address] Account Credited LAB AST 13-35 U/L Test AST reordered by [facility]. Result Comment: [place] [address] Account Credited LAB GLU 74-99 mg/dL Test Glucose reordered by [facility]. Result Comment: [place] [address] Account Credited LAB BUN 7-21 mg/dL Test BUN reordered by [facility]. Result Comment: [place] [address] Account Credited LAB CRET 0.58-0.96 mg/dL Creatinine Test reordered by [facility]. Result Comment: [place] [address] Account Credited LAB NA 136-144 mmol/L Test Sodium reordered by [facility]. Result Comment: [place] [address] Account Credited LAB K 3.7-5.1 mmol/L Test Potassium reordered by [facility]. Result Comment: [place] [address] Account Credited LAB CL 97-105 mmol/L Test Chloride reordered by [facility]. Result Comment: [place] [address] Account Credited LAB CO2 22-30 mmol/L Test CO2 reordered by [facility]. Result Comment: [place] [address] Account Credited LAB AGAP 9-18 mmol/L Test Anion Gap reordered by [facility]. Result Comment: [place] [address] Account Credited LAB ALT 7-38 U/L Test reordered ALT by [facility]. Result Comment: [place] [address] Account Credited LAB GFRAA eGFR- Amer. Test reordered by [facility]. Result Comment: [place] [address] Account Credited LAB GFRNAA . eGFR-All Test Other Races reordered by [facility]. Result Comment: [place] [address] Account Credited LAB GFRPED eGFR-Ped. Test Factor reordered by [facility]. Result Comment: [place] [address] Account Credited Performed By: #### CBCDIF, CMP #### [facility] [address] [place] [id number] COMP METABOLIC PANEL Collected: 12/10/2017 Status: F Source: [place] 11:54 AM [facility] REPOSIT[facility] TYPE CODE [...] mg/dL Low Glucose 65 Result Comment: The [place] Diabetes Association (ADA) provides guidance for cutoff [...] Standards of Medical Care in Diabetes 2016, [place] Diabetes Association. Diabetes Care. 2016.39(Suppl 1). LAB [...] actual GFR. Performed By: #### CMP #### [facility] [address] [place], [place] [address] PROGRESS Observed: 12/10/2017 Status: COMPLETED Source: [place] 9:48 AM [facility] REPOSITORY HNO ID: [id number] Author: Kannan Narayanan) Demetra Service: (none) Author Type: Physician Type: Progress Notes Filed: 12/15/2017 8:34 AM Note Text: Chief Complaint Patient presents with: penitentiary d/c: Eric Almanzar [facility] Juan Kelly is a 47 year old female who presents here today for hospital follow up from [facility]. Incomplete records today. Patient was admitted to [facility] on 11/21 after presenting to [facility] after missing several days of peritoneal [...] orders for PT/OT, SN, and [facility], approved yesterday, but have not been out [...] - Anxiety - Depression - Diabetes mellitus ([facility]) - ESRD (end stage renal disease) on dialysis ([facility]) 03/2017 Dr. Prieto - Multiple gastric ulcers [...] tablet calcium acetate (PHOSLO) 667 mg capsule DIRECTOR OF TEACHER EDUCATION-ROSLYN RX tablet No current facility-administered medications on [...] Continue PPI. 5. Respiratory failure requiring intubation ([facility]) - ICD9: 518.81, ICD10: J96.90 Resolved. 6. [...] R29.898 Home PT/OT. Spoke with nurse at [facility] regarding weakness and 's concerns with [...] with more than 50% of the total hxmx-ql-rjoy time of the visit in counseling / coordination of care. Kannan Gamble MD CNOV Observed: 12/10/2017 Status: COMPLETED Source: [place] 9:20 AM [facility] REPOSITORY Office Visit ([facility]) JUAN KELLY ([id number]) 1970 F TRN Date Time Provider Department 12/10/17 9:20 AM KANNAN GAMBLE) [facility] During your visit today, we recorded the following information about you: Pulse Respiration Blood pressure Weight 116/minute 16/minute 162/86 84.4 kg Kannan Gamble MD 12/15/2017 8:34 AM Signed Chief Complaint Patient presents with: penitentiary d/c: Eric Kelly is a 47 year old female who presents here today for hospital follow up from [facility]. Incomplete records today. Patient was admitted to [facility] on 11/21 after presenting to [facility] after missing several days of peritoneal [...] of 14 days and then transferred to [facility] for PT/OT until 12/08 when she requested to be discharged home with spouse. Since discharge, spouse has had hard time caring for patient. States that her legs have been weak and has had difficulty ambulating with walker. Using wheelchair mostly. Taking medications as prescribed without side effects. Discharged home with orders for PT/OT, SN, and [facility] SHIFT LEAD, approved yesterday, but have not been out [...] right knee pain from a fall at [facility] while using walker. Xray negative. Denies erythema or swelling today. Past medical history, appointments, medications, allergies reviewed. Previous Medical History PAST MEDICAL HISTORY Diagnosis Date - Anxiety - Depression - Diabetes mellitus (HCC) - ESRD (end stage renal disease) on dialysis ([facility]) 03/2017 Dr. Prieto - Multiple gastric ulcers [...] tablet calcium acetate (PHOSLO) 667 mg capsule DIRECTOR OF TEACHER EDUCATION-ROSLYN RX tablet No current facility-administered medications on [...] above. 3. ESRD (end stage renal disease) ([facility]) - ICD9: 585.6, ICD10: N18.6 Peritoneal dialysis [...] R29.898 Home PT/OT. Spoke with nurse at [facility] regarding weakness and 's concerns with caring [...] with more than 50% of the total [id number] time of the visit in counseling / [...] Ma - Fully Assessed Reason for Visit: penitentiary d/c [Other] Cmt: [facility] Primary Visit Diagnosis:Gastrointestinal hemorrhage, unspecified gastrointestinal hemorrhage type [K92.2] Other Visit Diagnoses:Multiple gastric ulcers [K25.9] ESRD (end stage renal disease) (HCC) [N18.6] Anemia, unspecified type [D64.9] Respiratory failure requiring intubation ([facility]) [J96.90] CRISTY (generalized anxiety disorder) [F41.1] Moderate episode of recurrent major depressive disorder ([facility]) [F33.1] Weakness of both lower extremities [R29.898] [...] Rfl: CBC + DIFF [SQCBCDIF] Order #: [id number] FUTURE COMP METABOLIC PANEL [SQCMP] Order #: [id number] FUTURE ECHO [[id number]] Order #: [id number]: 1 FUTURE Prescriptions as of 12/10/2017 Sig: [...] U-100 100 UNI* Inject subcutaneously three t* DIRECTOR OF TEACHER EDUCATION-ROSLYN RX 1 MG-60 MG-300 MCG* CYCLOBENZAPRINE 5 [...] Noted Resolved ESRD (end stage renal disease) ([facility]) [N18.6] INVALID FOR* More... Multiple gastric ulcers [...] Status:Closed by KANNAN GAMBLE MD on 12/15/17 YAYA Observed: 12/10/2017 Status: COMPLETED Source: [place] 12:00 AM [facility] REPOSITORY [facility] JUAN KELLY ([id number]) 1970 F TRN Date Time Provider Department 12/10/17 ARVIND ARELLANO (RN) R[place] During your visit today, we recorded the following information about you: Arvind Arellano RN 12/10/2017 1:51 PM Signed PRIMARY [...] Living arrangement Children; Spouse Support system Family; [place]les[place] based What is the health status of your caregiver? Fair Are there others that you care for? No (Has one child at home but cares for patient and child) Type of residence Private residence Home care services Yes Home care services Skilled care; PT/OT; Other (Enter Comment) ([facility]) Equipment used at home Wheelchair; Walker; Other (Enter Comment) (Peritoneal dialysis equipment, toilet rails) Do you have any assistive devices to help you communicate? No Communication Barriers Visual impairment (Has blurred vision at times due to retinal issues) Have you been in any hospital and/or ED outside the [facility] in the Past 6 months? Yes [...] the patient's advance care planning wishes No Scientologist or spiritual beliefs that impact treatment No [...] In the last 12 months, has your [employer] company shut off your service for not [...] often do you attend meeting for clubs, olesya-based organizations, or other social groups? More than [...] Psychoactive medications/medications with anticholinergic effects; Visual difficulties Arvind Arellano RN Arvind Arellano RN 12/10/2017 2:33 PM Signed TRANSITION CARE MANAGEMENT (TCM) INITIAL CONTACT Provider Action/FYI: Saw pt with PCP at office visit Intake completed TC to [facility], asked to fax last visit note TC to Dr. Prieto, water resources project manager, asked to fax last visit note. [facility] documents received, reviewed and placed on PCP's desk Initial contact with patient post discharge, spoke to patient and caregiver. Patient identified by name and . TRANSITION CARE MANAGEMENT: Date of Outreach: 12/10/2017 Outreach Attempt 1: Contact Made Date of Discharge 12/09/2017 Some recent data might be hidden SUMMARY: -Pt discharged from [facility] on 12/09. [facility] 11/25-12/04 -Follow up appointment on 12/10. [...] 2 units RBC, intubated and transferred to [facility] treated for: Acute Resp Failure, Acute K+ cardiac toxicity, Severe blood loss R/T UGI bleed upon chronic anemia, CRF stage V, Metabloic lactic acidosis and hx of DM and HTN Arvind Arellano RN December 10, 2017 2:26 PM Kannan Gamble MD 12/10/2017 10:00 PM Signed Reviewed. Arvind Arellano RN 12/11/2017 1:51 PM Signed PRIMARY CARE COORDINATION QUICK NOTE Provider Action/FYI Dilated Retinal Exam completed on 10/27/17 by [facility] HTN Retinopathy OU Patient identified by name and date . Arvind Arellano RN December 11, 2017 1:48 PM Allergies As of Date: 12/10/2017 Noted Allergy Reaction AUGMENTIN (AMOXICILLIN-POT CLAVUL*07/22/2017 11 - Vomiting BACTRIM (SULFAMETHOXAZOLE-TRIMETH*07/22/2017 14 - Other: See Comments Comments: Chest pain BUSPAR (BUSPIRONE HCL) 10/22/2017 14 - Other: See Comments Comments: Night terrors LASIX (FUROSEMIDE) 07/22/2017 7 - Swelling Date Reviewed: 12/10/2017 Reviewed by: Vanesa Gross Ma - Fully Assessed Reason for Visit: Janitorial Tech-In Office Visit [2170] Prescriptions as of 12/10/2017 Sig: CYCLOBENZAPRINE 5 [...] MG TABLET CALCIUM ACETATE 667 MG CAPSULE DIRECTOR OF TEACHER EDUCATION-ROSLYN RX 1 MG-60 MG-300 MCG* Problem List As Of Date 12/10/2017 Noted Resolved ESRD (end stage renal disease) (HCC) [N18.6] INVALID FOR* More... Multiple gastric ulcers [K25.9] Anxiety [F41.9] Depression [F32.9] Encounter Status:Closed by ARVIND ARELLANO on 12/11/17 CMP WITH EGFR Collected: 12/05/2017 Status: F Source: [facility] 5:00 AM [facility] REPOSITORY TYPE CODE TESTS RESULT OUT [...] OF AGE AND OLDER. Performed By: #### [id number] #### [facility],[address] [place] [address] CBC (NO DIFF) Collected: 12/05/2017 Status: F Source: [facility] 5:00 AM [facility] REPOSITORY TYPE CODE TESTS RESULT OUT [...] 7.4 Result Comment: {CB] Performed By: #### [id number] #### [facility],[address] [place] [address] HGB A1C Collected: 12/05/2017 Status: F Source: [facility] 5:00 AM [facility] REPOSITORY TYPE CODE TESTS RESULT OUT OF RANGE REFERENCE UNITS LAB HGB 4.4 - 6.4 % A1C(LOINC) HGB A1C 5.8 Result Comment: {HB] {A1] Performed By: #### [id number] #### [facility],[address] [place] [address] HH Collected: 12/04/2017 Status: F Source: [facility] 10:55 AM [facility] TYPE CODE TESTS RESULT OUT OF RANGE REFERENCE UNITS LAB HGB(LOINC) 12.0-16.0 G/dL Low Hgb 10.9 LAB HCT(LOINC) 34.0-46.0 % Low Hct 31.3 Performed By: #### HH #### [place] [address] CBC Collected: 12/04/2017 Status: F Source: [facility] 6:40 AM [facility] REPOSITORY TYPE CODE [...] ADIFF, ANEU, MG, BMP, GFR, HFP #### [place] [address] .AUTO DIFF Collected: 12/04/2017 Status: F Source: [facility] 6:40 AM [facility] REPOSITORY TYPE CODE [...] ADIFF, ANEU, MG, BMP, GFR, HFP #### [place] [address] .NEUABS Collected: 12/04/2017 Status: F Source: [facility] 6:40 AM [facility] REPOSITORY TYPE CODE TESTS RESULT OUT OF REFERENCE UNITS RANGE LAB ANEU(LOINC) 2.25-8.10 10 3/mcL High Neutrophil, 10.20 Absolute Performed By: #### CBC, ADIFF, ANEU, MG, BMP, GFR, HFP #### [place] [address] MG Collected: 12/04/2017 Status: F Source: [facility] 6:40 AM [facility] REPOSITORY TYPE CODE TESTS RESULT OUT OF REFERENCE UNITS RANGE LAB MG(LOINC) 1.6-2.4 mg/dL High Magnesium Lvl 2.6 Performed By: #### CBC, ADIFF, ANEU, MG, BMP, GFR, HFP #### [place] [address] BMP Collected: 12/04/2017 Status: F Source: [facility] 6:40 AM [facility] REPOSITORY TYPE CODE [...] ADIFF, ANEU, MG, BMP, GFR, HFP #### [place] [address] .GFR Collected: 12/04/2017 Status: F Source: [facility] 6:40 AM [facility] TYPE CODE TESTS RESULT OUT OF REFERENCE UNITS RANGE LAB GFRAA(LOINC ml/min/1.73 ) sqm GFR 6 Libyan Result Comment: GFR Population mean for , [...] ADIFF, ANEU, MG, BMP, GFR, HFP #### [address] [address] HFP Collected: 12/04/2017 Status: F Source: [facility] 6:40 AM [facility] REPOSITORY TYPE CODE [...] AST/SGOT 22 LAB ALT(LOINC) 10-49 U/L ALT/SGPT 40 Performed By: #### CBC, ADIFF, ANEU, MG, BMP, GFR, HFP #### [address] [address] Collected: 12/04/2017 Status: F Source: [facility] 1:08 AM [facility] REPOSITORY TYPE CODE TESTS RESULT OUT OF RANGE REFERENCE UNITS LAB HGB(LOINC) 12.0-16.0 G/dL Low Hgb 10.1 LAB HCT(LOINC) 34.0-46.0 % Low Hct 29.6 Performed By: #### HH #### [place] [address] TABO Collected: 12/03/2017 Status: F Source: [facility] 2:02 PM [facility] REPOSITORY TYPE CODE TESTS RESULT OUT OF RANGE REFERENCE UNITS LAB ABORH(LOINC ) Unknown ABO/Rh B NEG Interp Performed By: #### ABORH, ANTIS #### [place] [address] TABS Collected: 12/03/2017 Status: F Source: [facility] 2:02 PM [facility] REPOSITORY TYPE CODE TESTS RESULT OUT OF REFERENCE UNITS RANGE LAB ANST(LOINC ) Antibody Negative ABSC Screen Tango Performed By: #### LAUREN, ANTIS #### [place] [address] RBC (PRODUCT) Collected: 12/03/2017 Status: F Source: [facility] 12:19 PM [facility] REPOSITORY TYPE CODE TESTS RESULT OUT OF REFERENCE UNITS RANGE LAB RBCPR(LOINC ) RBC Product RBC Ready Ready for Pickup Performed By: #### RBCP #### [place] [address] RBC (PRODUCT) Collected: 12/03/2017 Status: F Source: [facility] 11:27 AM [facility] REPOSITORY TYPE CODE TESTS RESULT OUT OF REFERENCE UNITS RANGE LAB RBCPR(LOINC ) RBC Product RBC Ready Ready for Pickup Performed By: #### RBCP #### [place] [address] HH Collected: 12/03/2017 Status: F Source: [facility] 9:23 AM [facility] REPOSITORY TYPE CODE TESTS RESULT OUT OF RANGE REFERENCE UNITS LAB HGB(LOINC) 12.0-16.0 G/dL Low Hgb 7.8 LAB HCT(LOINC) 34.0-46.0 % Low Hct 23.0 Performed By: #### HH #### [place] [address] MG Collected: 12/03/2017 Status: F Source: [facility] 7:27 AM [facility] REPOSITORY TYPE CODE TESTS RESULT OUT OF REFERENCE UNITS RANGE LAB MG(LOINC) 1.6-2.4 mg/dL High Magnesium Lvl 2.5 Performed By: #### MG, CMP, GFR, BILAD #### [address] [address] CMP Collected: 12/03/2017 Status: F Source: [facility] 7:27 AM [facility] REPOSITORY TYPE CODE [...] By: #### MG, CMP, GFR, BILAD #### [address] [address] .GFR Collected: 12/03/2017 Status: F Source: [facility] 7:27 AM [facility] REPOSITORY TYPE CODE TESTS RESULT OUT OF REFERENCE UNITS RANGE LAB GFRAA(LOINC ml/min/1.73 ) sqm GFR 6 Libyan Result Comment: GFR Population mean for , [...] By: #### MG, CMP, GFR, BILAD #### [place] [address] BILAD Collected: 12/03/2017 Status: F Source: [facility] 7:27 AM [facility] REPOSITORY TYPE CODE TESTS RESULT OUT OF REFERENCE UNITS RANGE LAB BILAD(LOINC 0.0-0.4 mg/dL ) Bili Direct 0.1 Performed By: #### MG, CMP, GFR, BILAD #### [address] [address] CBC Collected: 12/03/2017 Status: F Source: [facility] 7:27 AM [facility] REPOSITORY TYPE CODE [...] Performed By: #### CBC, DIFF, MORPH #### [place] [address] .MANUAL DIFF Collected: 12/03/2017 Status: F Source: [facility] 7:27 AM [facility] REPOSITORY TYPE CODE [...] Performed By: #### CBC, DIFF, MORPH #### [place] [address] .MORPH Collected: 12/03/2017 Status: F Source: [facility] 7:27 AM [facility] REPOSITORY TYPE CODE TESTS RESULT OUT OF REFERENCE UNITS RANGE LAB PLTE(LOINC ) Platelet Normal Estimate LAB RBCM(LOINC ) RBC Morph Normal LAB POLC(LOINC ) Polychrom Slight Performed By: #### CBC, DIFF, MORPH #### [place] [address] HH Collected: 12/02/2017 Status: F Source: [facility] 10:42 PM [facility] REPOSITORY TYPE CODE TESTS RESULT OUT OF RANGE REFERENCE UNITS LAB HGB(LOINC) 12.0-16.0 G/dL Low Hgb 9.2 LAB HCT(LOINC) 34.0-46.0 % Low Hct 26.8 Performed By: #### HH #### [place] [address] HH Collected: 12/02/2017 Status: F Source: [facility] 4:53 PM [facility] REPOSITORY TYPE CODE TESTS RESULT OUT OF RANGE REFERENCE UNITS LAB HGB(LOINC) 12.0-16.0 G/dL Low Hgb 8.1 LAB HCT(LOINC) 34.0-46.0 % Low Hct 23.3 Performed By: #### HH #### [place] [address] HH Collected: 12/02/2017 Status: F Source: [facility] 10:38 AM [facility] REPOSITORY TYPE CODE TESTS RESULT OUT OF RANGE REFERENCE UNITS LAB HGB(LOINC) 12.0-16.0 G/dL Low Hgb 8.2 LAB HCT(LOINC) 34.0-46.0 % Low Hct 23.4 Performed By: #### HH #### [place] [address] CBC Collected: 12/02/2017 Status: F Source: [facility] 2:33 AM [facility] REPOSITORY TYPE CODE [...] ADIFF, ANEU, BMP, MG, GFR, HFP #### [address] [address] .AUTO DIFF Collected: 12/02/2017 Status: F Source: [facility] 2:33 AM [facility] REPOSITORY TYPE CODE [...] ADIFF, ANEU, BMP, MG, GFR, HFP #### [address] [address] .NEUABS Collected: 12/02/2017 Status: F Source: [facility] 2:33 AM [facility] REPOSITORY TYPE CODE TESTS RESULT OUT OF REFERENCE UNITS RANGE LAB ANEU(LOINC) 2.25-8.10 10 3/mcL High Neutrophil, 10.70 Absolute Performed By: #### CBC, ADIFF, ANEU, BMP, MG, GFR, HFP #### [place] [address] BMP Collected: 12/02/2017 Status: F Source: [facility] 2:33 AM [facility] REPOSITORY TYPE CODE [...] ADIFF, ANEU, BMP, MG, GFR, HFP #### [place] [address] MG Collected: 12/02/2017 Status: F Source: [facility] 2:33 AM [facility] REPOSITORY TYPE CODE TESTS RESULT OUT OF REFERENCE UNITS RANGE LAB MG(LOINC) 1.6-2.4 mg/dL High Magnesium Lvl 2.5 Performed By: #### CBC, ADIFF, ANEU, BMP, MG, GFR, HFP #### [place] [address] .GFR Collected: 12/02/2017 Status: F Source: [facility] 2:33 AM [facility] REPOSITORY TYPE CODE TESTS RESULT OUT OF REFERENCE UNITS RANGE LAB GFRAA(LOINC ml/min/1.73 ) sqm GFR 6 Libyan Result Comment: GFR Population mean for , [...] ADIFF, ANEU, BMP, MG, GFR, HFP #### [address] Collected: 12/02/2017 Status: F Source: [facility] 2:33 AM [facility] REPOSIT[facility] TYPE CODE TESTS RESULT [...] ADIFF, ANEU, BMP, MG, GFR, HFP #### [place] [address] RBC (PRODUCT) Collected: 12/01/2017 Status: F Source: [facility] 8:04 PM [facility] REPOSITORY TYPE CODE TESTS RESULT OUT OF REFERENCE UNITS RANGE LAB RBCPR(LOINC ) RBC Product RBC Ready Ready for Pickup Performed By: #### RBCP #### [place] [address] HH Collected: 12/01/2017 Status: F Source: [facility] 6:59 PM [facility] REPOSITORY TYPE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 REFERENCE UNITS LAB HGB(LOINC) 12.0-16.0 G/dL Low Hgb 7.1 LAB HCT(LOINC) 34.0-46.0 % Low Hct 21.2 Performed By: #### HH #### [address] Collected: 11/23/2017 Status: F Source: [facility] 5:51 PM [facility] REPOSITORY TYPE CODE TESTS RESULT OUT OF RANGE REFERENCE UNITS LAB HGB(LOINC) 12.0-16.0 G/dL Low Hgb 7.1 LAB HCT(LOINC) 34.0-46.0 % Low Hct 21.3 Performed By: #### HH #### [place] [address] RBC (PRODUCT) Collected: 11/23/2017 Status: F Source: [facility] 5:47 PM [facility] REPOSITORY Order Comment: HOLD 1 unit PRBCs TYPE CODE TESTS RESULT OUT OF REFERENCE UNITS RANGE LAB RBCPR(LOINC ) RBC Product RBC Ready Ready for Pickup Performed By: #### RBCP #### [address] Collected: 11/23/2017 Status: F Source: [facility] 12:09 PM [facility] REPOSITORY TYPE CODE TESTS RESULT OUT OF RANGE REFERENCE UNITS LAB HGB(LOINC) 12.0-16.0 G/dL Low Hgb 7.0 LAB HCT(LOINC) 34.0-46.0 % Low Hct 20.9 Performed By: #### HH #### [place] [address] MYCO Collected: 11/23/2017 Status: F Source: [facility] 12:09 [facility] REPOSITORY TYPE CODE TESTS RESULT OUT [...] method suggested. Performed By: #### MYCO #### [place] [address] US ABDOMEN LIMITED Observed: 11/23/2017 Status: F Source: [facility] 9:30 AM [facility] REPOSITORY ORIGINAL Limited [...] PM CBC Collected: 11/23/2017 Status: F Source: [facility] 4:18 AM [facility] REPOSITORY TYPE CODE [...] CBC, PRO, MG, PHOS, DIFF, MORPH #### [place] [address] PRO Collected: 11/23/2017 Status: F Source: [facility] 4:18 AM [facility] REPOSITORY TYPE CODE TESTS RESULT OUT OF REFERENCE UNITS RANGE LAB PT(LOINC) 9.0-14.5 seconds Protime 14.4 Result Comment: Effective 09/01/07, Protime results may be affected by some antibiotics (i.e. Ciprofloxacin, Azithromycin, Bactrim) which may potentiate the action of oral anticoagulants, with further increases in Protime/INR. LAB INR(LOINC) ratio PT International Ratio 1.2 Result Comment: [employer] [place] [employer] (CHEST, 1992, 102:312S-25S) recommended therapeutic range for oral anticoagulant therapy is: LOW RISK: Prophylaxis of venous thrombosis INR: 2.0-3.0 Treatment of pulmonary embolism 2.0-3.0 Prevention of systemic embolism 2.0-3.0 HIGH RISK: Mechanical prosthetic valves 2.5-3.5 Performed By: #### CBC, PRO, MG, PHOS, DIFF, MORPH #### [place] [address] MG Collected: 11/23/2017 Status: F Source: [facility] 4:18 AM [facility] REPOSITORY TYPE CODE TESTS RESULT OUT OF REFERENCE UNITS RANGE LAB MG(LOINC) 1.6-2.4 mg/dL High Magnesium Lvl 2.8 Performed By: #### CBC, PRO, MG, PHOS, DIFF, MORPH #### [place] [address] PHOS Collected: 11/23/2017 Status: F Source: [facility] 4:18 AM [facility] REPOSITORY TYPE CODE TESTS RESULT OUT OF RANGE REFERENCE UNITS LAB PHOS(LOINC 2.5-4.5 mg/dL ) Abnormal Phosphorus 9.7 Alert Performed By: #### CBC, PRO, MG, PHOS, DIFF, MORPH #### [place] [address] .MANUAL DIFF Collected: 11/23/2017 Status: F Source: [facility] 4:18 AM [facility] REPOSITORY TYPE CODE [...] CBC, PRO, MG, PHOS, DIFF, MORPH #### [place] [address] .MORPH Collected: 11/23/2017 Status: F Source: [facility] 4:18 AM [facility] REPOSITORY TYPE CODE TESTS RESULT OUT OF REFERENCE UNITS RANGE LAB PLTE(LOINC ) Platelet Estimate Normal LAB ANIS(LOINC ) Anisocytosis Slight LAB POLC(LOINC ) Polychrom Slight Performed By: #### CBC, PRO, MG, PHOS, DIFF, MORPH #### [place] [address] .GFR Collected: 11/23/2017 Status: F Source: [facility] 4:18 AM [facility] REPOSITORY TYPE CODE TESTS RESULT OUT OF REFERENCE UNITS RANGE LAB GFRAA(LOINC ml/min/1.73 ) sqm GFR 4 [place] Result Comment: GFR Population mean for , [...] meters Performed By: #### GFR, CMP #### [place] [address] CMP Collected: 11/23/2017 Status: F Source: [facility] 4:18 AM [facility] REPOSITORY TYPE CODE [...] 338 Performed By: #### GFR, CMP #### [place] [address] EMERGENCY REPORT Observed: 11/23/2017 Status: F Source: [facility] 3:32 AM [facility] EMERGENCY ROOM REPORT NAME ACCOUNT SEX AGE ADMIT DISCHARGE PT MED. RECORD# NUMBER DATE DATE TYPE JUAN KELLY [id number] F 46 10/27/17 10/27/17 3 [id number] ROOM: ER DATE OF : 1970 DICTATING PHYSICIAN: Jorge Aleman HISTORY OF PRESENT ILLNESS: This is [...] process was noted. Page 1 of 2 JUAN KELLY Emergency Room Report MEDICAL DECISION MAKING: [...] discharged home in stable condition. Dictated By: Jorge Aleman MD 10/27/17 21:06 JOB #: [id number] Transcribed By: damion 10/28/17 18:27 Electronically signed by: E-SIGN: Jorge Aleman M.D. 11/23/17 03:32 Page 2 of 2 JUAN KELLY Emergency Room Report BG Collected: 11/23/2017 Status: F Source: [facility] 1:32 AM [facility] REPOSIT[facility] TYPE CODE TESTS RESULT [...] 734 Pressure Performed By: #### BG #### [address] [address] XR CHEST 1 VIEW Observed: 11/23/2017 Status: F Source: [facility] 12:56 AM [facility] REPOSITORY ORIGINAL XR [...] AM HGB Collected: 11/22/2017 Status: F Source: [facility] 11:30 PM [facility] REPOSITORY TYPE CODE TESTS RESULT OUT OF RANGE REFERENCE UNITS LAB HGB(LOINC) 12.0-16.0 G/dL Low Hgb 8.4 Performed By: #### HGB, HCT #### [address] [address] HCT Collected: 11/22/2017 Status: F Source: [facility] 11:30 PM [facility] REPOSITORY TYPE CODE TESTS RESULT OUT OF RANGE REFERENCE UNITS LAB HCT(LOINC) 34.0-46.0 % Low Hct 24.2 Performed By: #### HGB, HCT #### [address] [address] UA Collected: 11/22/2017 Status: F Source: [facility] 9:46 PM [facility] REPOSITORY TYPE CODE [...] Moderate Performed By: #### UA, UAMIC #### [address] [address] UAMIC Collected: 11/22/2017 Status: F Source: [facility] 9:46 PM [facility] REPOSITORY TYPE CODE [...] Rare Performed By: #### UA, UAMIC #### [address] [address] RBC (PRODUCT) Collected: 11/22/2017 Status: F Source: [facility] 7:56 PM [facility] REPOSITORY TYPE CODE TESTS RESULT OUT OF REFERENCE UNITS RANGE LAB RBCPR(LOINC ) RBC Product RBC Ready Ready for Pickup Performed By: #### RBCP #### [address] Collected: 11/22/2017 Status: F Source: [facility] 6:43 PM [facility] REPOSITORY TYPE CODE TESTS RESULT OUT OF RANGE REFERENCE UNITS LAB HGB(LOINC) 12.0-16.0 G/dL Abnormal Alert Hgb 6.9 LAB HCT(LOINC) 34.0-46.0 % Low Hct 20.2 Performed By: #### HH #### [address] Collected: 11/22/2017 Status: F Source: [facility] 12:14 PM [facility] REPOSITORY TYPE CODE TESTS RESULT OUT OF RANGE REFERENCE UNITS LAB HGB(LOINC) 12.0-16.0 G/dL Low Hgb 7.3 LAB HCT(LOINC) 34.0-46.0 % Low Hct 21.5 Performed By: #### HH #### [place] [address] XR CHEST 1 VIEW Observed: 11/22/2017 Status: F Source: [facility] 11:57 AM [facility] REPOSITORY ORIGINAL XR [...] PM BG Collected: 11/22/2017 Status: F Source: [facility] 6:57 AM [facility] REPOSITORY TYPE CODE [...] 733 Pressure Performed By: #### BG #### [place] [address] CAION Collected: 11/22/2017 Status: F Source: [facility] 5:17 AM [facility] REPOSITORY TYPE CODE TESTS RESULT OUT OF REFERENCE UNITS RANGE LAB CAION(LOINC 1.12-1.32 mmol/L ) Low Calcium 0.99 Ionized Performed By: #### MATTHEW, LAC, HFP #### [place] [address] LAC Collected: 11/22/2017 Status: F Source: [facility] 5:17 AM [facility] REPOSITORY TYPE CODE TESTS RESULT OUT OF REFERENCE UNITS RANGE LAB LAC(LOINC) 0.2-2.0 mmol/L High Lactic Acid 2.6 Lvl Performed By: #### MATTHEW, LAC, HFP #### [place] [address] HFP Collected: 11/22/2017 Status: F Source: [facility] 5:17 AM [facility] REPOSITORY TYPE CODE [...] U/L High ALT/SGPT 481 Performed By: #### CAION, LAC, HFP #### [address] [address] MG Collected: 11/22/2017 Status: F Source: [facility] 5:17 AM [facility] REPOSITORY TYPE CODE TESTS RESULT OUT OF REFERENCE UNITS RANGE LAB MG(LOINC) 1.6-2.4 mg/dL High Magnesium Lvl 2.9 Performed By: #### MG, GFR, BMP, PHOS, CBC, ADIFF, MORPH, ANEU #### [address] [address] .GFR Collected: 11/22/2017 Status: F Source: [facility] 5:17 AM [facility] REPOSITORY TYPE CODE TESTS RESULT OUT OF REFERENCE UNITS RANGE LAB GFRAA(LOINC ml/min/1.73 ) sqm GFR 4 [place] Result Comment: GFR Population mean for , [...] BMP, PHOS, CBC, ADIFF, MORPH, ANEU #### [address] [address] BMP Collected: 11/22/2017 Status: F Source: [facility] 5:17 AM [facility] REPOSITORY TYPE CODE [...] BMP, PHOS, CBC, ADIFF, MORPH, ANEU #### [address] [address] PHOS Collected: 11/22/2017 Status: F Source: [facility] 5:17 AM [facility] REPOSITORY TYPE CODE TESTS RESULT OUT OF RANGE REFERENCE UNITS LAB PHOS(LOINC 2.5-4.5 mg/dL ) Abnormal Phosphorus 9.2 Alert Performed By: #### MG, GFR, BMP, PHOS, CBC, ADIFF, MORPH, ANEU #### [address] [address] CBC Collected: 11/22/2017 Status: F Source: [facility] 5:17 AM [facility] REPOSITORY TYPE CODE [...] BMP, PHOS, CBC, ADIFF, MORPH, ANEU #### [place] [address] .AUTO DIFF Collected: 11/22/2017 Status: F Source: [facility] 5:17 AM [facility] REPOSITORY TYPE CODE [...] BMP, PHOS, CBC, ADIFF, MORPH, ANEU #### [place] [address] .MORPH Collected: 11/22/2017 Status: F Source: [facility] 5:17 AM [facility] REPOSITORY TYPE CODE TESTS RESULT OUT OF REFERENCE UNITS RANGE LAB PLTE(LOINC ) Platelet Estimate Normal LAB ANIS(LOINC ) Anisocytosis Slight LAB POLC(LOINC ) Polychrom Slight Performed By: #### MG, GFR, BMP, PHOS, CBC, ADIFF, MORPH, ANEU #### [place] [address] .NEUABS Collected: 11/22/2017 Status: F Source: [facility] 5:17 AM [facility] REPOSITORY TYPE CODE TESTS RESULT OUT OF REFERENCE UNITS RANGE LAB ANEU(LOINC) 2.25-8.10 10 3/mcL High Neutrophil, 22.80 Absolute Performed By: #### MG, GFR, BMP, PHOS, CBC, ADIFF, MORPH, ANEU #### [place] [address] HEPAC Collected: 11/22/2017 Status: F Source: [facility] 5:01 AM [facility] REPOSITORY TYPE CODE [...] Int infection. Performed By: #### HEPAC #### [place] [address] XR CHEST 1 VIEW Observed: 11/22/2017 Status: F Source: [facility] 4:51 AM [facility] REPOSITORY ORIGINAL Clinical [...] 6:41:32 AM Sign Date: 11/22/2017 6:43:32 AM HH Collected: 11/21/2017 Status: F Source: [facility] 11:58 PM [facility] REPOSITORY TYPE CODE TESTS RESULT OUT OF RANGE REFERENCE UNITS LAB HGB(LOINC) 12.0-16.0 G/dL Low Hgb 7.9 LAB HCT(LOINC) 34.0-46.0 % Low Hct 23.4 Performed By: #### HH #### [facility] [address] [place] [address] .GFR Collected: 11/21/2017 Status: F Source: [facility] 11:58 PM [facility] REPOSITORY TYPE CODE TESTS RESULT OUT OF REFERENCE UNITS RANGE LAB GFRAA(LOINC ml/min/1.73 ) sqm GFR 4 [place] Result Comment: GFR Population mean for , [...] meters Performed By: #### GFR, BMP #### [address] [address] BMP Collected: 11/21/2017 Status: F Source: [facility] 11:58 PM [facility] REPOSITORY TYPE CODE [...] 7.9 Performed By: #### GFR, BMP #### [place] [address] HH Collected: 11/21/2017 Status: F Source: [facility] 10:03 PM [facility] REPOSITORY TYPE CODE TESTS RESULT OUT OF RANGE REFERENCE UNITS LAB HGB(LOINC) 12.0-16.0 G/dL Low Hgb 7.9 LAB HCT(LOINC) 34.0-46.0 % Low Hct 23.1 Performed By: #### HH #### [address] [address] BG Collected: 11/21/2017 Status: F Source: [facility] 9:34 PM [facility] REPOSITORY TYPE CODE [...] 734 Pressure Performed By: #### BG #### [place] [address] RBC (PRODUCT) Collected: 11/21/2017 Status: F Source: [facility] 4:38 PM [facility] REPOSITORY Order Comment: transfuse 1 unit TYPE CODE TESTS RESULT OUT OF REFERENCE UNITS RANGE LAB RBCPR(LOINC ) RBC Product RBC Ready Ready for Pickup Performed By: #### RBCP #### [place] [address] BG Collected: 11/21/2017 Status: F Source: [facility] 4:30 PM [facility] REPOSITORY TYPE CODE [...] 732 Pressure Performed By: #### BG #### [place] [address] Observed: 11/21/2017 Status: F Source: [facility] 3:44 PM [facility] REPOSITORY . MICRO [...] Locations *1: This test was performed at: [address], [address] [place] [address] Performed By: #### CBL #### [place] [address] CAION Collected: 11/21/2017 Status: F Source: [facility] 3:43 [facility] REPOSITORY TYPE CODE TESTS RESULT OUT OF REFERENCE UNITS RANGE LAB CAION(LOINC 1.12-1.32 mmol/L ) Low Calcium 0.96 Ionized Performed By: #### CAION, LAC, FIB, APTT, PRO, MG, GFR, CBC, TROPI, CMP, PHOS, DIFF, MORPH #### [place] [address] LAC Collected: 11/21/2017 Status: F Source: [facility] 3:43 [facility] REPOSITORY TYPE CODE TESTS RESULT OUT OF REFERENCE UNITS RANGE LAB LAC(LOINC) 0.2-2.0 mmol/L High Lactic Acid 3.1 Lvl Performed By: #### CAION, LAC, FIB, APTT, PRO, MG, GFR, CBC, TROPI, CMP, PHOS, DIFF, MORPH #### [place] [address] FIB Collected: 11/21/2017 Status: F Source: [facility] 3:43 [facility] REPOSITORY TYPE CODE TESTS RESULT OUT OF REFERENCE UNITS RANGE LAB FIB(LOINC) 250-550 mg/dL High Fibrinogen >700 Performed By: #### CAION, LAC, FIB, APTT, PRO, MG, GFR, CBC, TROPI, CMP, PHOS, DIFF, MORPH #### [address] [address] APTT Collected: 11/21/2017 Status: F Source: [facility] 3:43 [facility] REPOSITORY TYPE CODE TESTS RESULT OUT [...] CBC, TROPI, CMP, PHOS, DIFF, MORPH #### [address] [address] PRO Collected: 11/21/2017 Status: F Source: [facility] 3:43 [facility] REPOSITORY TYPE CODE TESTS RESULT OUT OF REFERENCE UNITS RANGE LAB PT(LOINC) 9.0-14.5 seconds High Protime 16.2 Result Comment: Effective 09/01/07, Protime results may be affected by some antibiotics (i.e. Ciprofloxacin, Azithromycin, Bactrim) which may potentiate the action of oral anticoagulants, with further increases in Protime/INR. LAB INR(LOINC) ratio PT International Ratio 1.4 Result Comment: The [employer] [employer] (CHEST, 1992, 102:312S-25S) recommended therapeutic range for oral anticoagulant therapy is: LOW RISK: Prophylaxis of venous thrombosis INR: 2.0-3.0 Treatment of pulmonary embolism 2.0-3.0 Prevention of systemic embolism 2.0-3.0 HIGH RISK: Mechanical prosthetic valves 2.5-3.5 Performed By: #### CAION, LAC, FIB, APTT, PRO, MG, GFR, CBC, TROPI, CMP, PHOS, DIFF, MORPH #### [facility] [address] [place] [address] MG Collected: 11/21/2017 Status: F Source: [facility] 3:43 PM [facility] REPOS[facility] TYPE CODE TESTS RESULT OUT OF REFERENCE UNITS RANGE LAB MG(LOINC) 1.6-2.4 mg/dL High Magnesium Lvl 3.0 Performed By: #### CAION, LAC, FIB, APTT, PRO, MG, GFR, CBC, TROPI, CMP, PHOS, DIFF, MORPH #### [place] [address] .GFR Collected: 11/21/2017 Status: F Source: [facility] 3:43 PM [facility] REPOSITORY TYPE CODE TESTS RESULT OUT OF REFERENCE UNITS RANGE LAB GFRAA(LOINC ml/min/1.73 ) sqm GFR 4 [place] Result Comment: GFR Population mean for , [...] CBC, TROPI, CMP, PHOS, DIFF, MORPH #### [address] [address] CBC Collected: 11/21/2017 Status: F Source: [facility] 3:43 PM [facility] REPOSITORY TYPE CODE [...] CBC, TROPI, CMP, PHOS, DIFF, MORPH #### [address] [address] TROPI Collected: 11/21/2017 Status: F Source: [facility] 3:43 [facility] REPOSITORY TYPE CODE TESTS RESULT OUT [...] ECG changes may help assess possibility of DC. *Other non-acute coronary syndrome conditions such as CHF, myocarditis, pulmonary emboli, sepsis and cardiac surgery could result in myocardial damage and increased troponin levels. Performed By: #### CAION, LAC, FIB, APTT, PRO, MG, GFR, CBC, TROPI, CMP, PHOS, DIFF, MORPH #### [place] [id number] [place] [address] CMP Collected: 11/21/2017 Status: F Source: [facility] 3:43 PM [facility] REPOSITORY TYPE CODE [...] CBC, TROPI, CMP, PHOS, DIFF, MORPH #### [address] [address] PHOS Collected: 11/21/2017 Status: F Source: [facility] 3:43 PM [facility] REPOSITORY TYPE CODE TESTS RESULT OUT OF RANGE REFERENCE UNITS LAB PHOS(LOINC 2.5-4.5 mg/dL ) Abnormal Phosphorus 9.7 Alert Performed By: #### CAION, LAC, FIB, APTT, PRO, MG, GFR, CBC, TROPI, CMP, PHOS, DIFF, MORPH #### [address] [address] .MANUAL DIFF Collected: 11/21/2017 Status: F Source: [facility] 3:43 PM [facility] REPOSITORY TYPE CODE [...] CBC, TROPI, CMP, PHOS, DIFF, MORPH #### [address] [address] .MORPH Collected: 11/21/2017 Status: F Source: [facility] 3:43 [facility] REPOSITORY TYPE CODE TESTS RESULT OUT OF REFERENCE UNITS RANGE LAB PLTE(LOINC ) Platelet Estimate Normal LAB ANIS(LOINC ) Anisocytosis Slight LAB POLC(LOINC ) Polychrom Slight Performed By: #### CAION, LAC, FIB, APTT, PRO, MG, GFR, CBC, TROPI, CMP, PHOS, DIFF, MORPH #### [place] [address] TABO Collected: 11/21/2017 Status: F Source: [facility] 3:43 PM [facility] REPOSITORY TYPE CODE TESTS RESULT OUT OF RANGE REFERENCE UNITS LAB ABORH(LOINC ) Unknown ABO/Rh B NEG Interp Performed By: #### ABORH, ANTIS #### [place] [address] TABS Collected: 11/21/2017 Status: F Source: [facility] 3:43 PM [facility] REPOSITORY TYPE CODE TESTS RESULT OUT OF REFERENCE UNITS RANGE LAB ANST(LOINC ) Antibody Negative ABSC Screen Tango Performed By: #### ABORH, ANTIS #### [place] [address] Observed: 11/21/2017 Status: F Source: [facility] 3:43 PM [facility] REPOSITORY . MICRO [...] Locations *1: This test was performed at: [address], [facility] , [facility] Performed By: #### CBL #### [place] [address] Observed: 11/21/2017 Status: F Source: [facility] CRES 3:26 PM [facility] REPOSITORY . MICRO [...] Locations *1: This test was performed at: [address], [address] [place] [address] Performed By: #### CRESP #### [place] [address] Observed: 11/21/2017 Status: F Source: [facility] 3:26 PM [facility] REPOSITORY . MICRO - Microbiology PROCEDURE: MRSA [...] Locations *1: This test was performed at: [address] Performed By: #### MRPCR #### [place] [address] Observed: 11/21/2017 Status: F Source: [facility] 3:26 PM [facility] REPOSITORY . MICRO [...] Locations *1: This test was performed at: [address] Performed By: #### CUR #### [place] [address] BG Collected: 11/21/2017 Status: F Source: [facility] 3:19 PM [facility] REPOSITORY TYPE CODE [...] 736 Pressure Performed By: #### BG #### [facility] [address] [place] [address] XR CHEST 1 VIEW Observed: 11/21/2017 Status: F Source: [facility] 2:42 PM [facility] REPOSITORY ORIGINAL XR [...] 1 VIEW Observed: 11/21/2017 Status: F Source: [facility] 2:33 PM [facility] REPOSITORY ORIGINAL XR [...] RBC (PRODUCT) Collected: 11/21/2017 Status: F Source: [facility] 2:28 PM [facility] RE[facility] TYPE CODE TESTS RESULT OUT OF REFERENCE UNITS RANGE LAB RBCPR(LOINC ) RBC Product RBC Ready Ready for Pickup Performed By: #### RBCP #### [place] [address] TROPONIN Collected: 11/21/2017 Status: F [facility] REPOSITORY TYPE CODE TESTS RESULT OUT [...] such as heterophile antibodies). Performed By: #### [id number] #### [facility],[address] [place] [address] POTASSIUM Collected: 11/21/2017 Status: F Source: [facility] 11:35 AM [facility] REPOSITORY TYPE CODE TESTS RESULT OUT OF REFERENCE UNITS RANGE LAB POTASSIUM( 3.5 - 5.1 mmol/L LOINC) High Alert POTASSIUM 6.6 Result Comment: { CALLED TO TERI AT 1217/ { READ BACK BY TERI RA 1217 Performed By: #### [id number] #### [facility],[address] [place] [address] ARTERIAL BLOOD GAS Collected: 11/21/2017 Status: F Source: [facility] ANALYSIS 11:15 AM [facility] REPOSITORY TYPE CODE TESTS RESULT OUT [...] { TIME CALLED 1120 Performed By: #### [id number] #### [facility],[address] [place] [address] CBC Collected: 11/21/2017 Status: F Source: [facility] 11:15 AM [facility] REPOSITORY TYPE CODE TESTS RESULT OUT OF RANGE REFERENCE UNITS LAB CBC(LOINC) CBC Result Comment: CBC-COMPLETE BLOOD COUNT LAB WBC(LOINC) 4.5 - 10.8 x 10EE3/UL WBC High 22.0 LAB RBC(LOINC) 4.10 - x 10EE6/UL Low 5.30 RBC 1.95 LAB HEMOGLOBIN(LOINC 12.0 - g/dl ) Low 16.0 Alert HEMOGLOBIN 5.7 Result Comment: { CALLED TO LAMBERTO/YUNIEL 112Tra { READ BACK BY H&H RA-1124 { [...] x10EE3/U L Neut # High 20.00 LAB Coffey #(LOINC) 0.20 - 1.00 x10EE3/U L Coffey # 0.80 LAB EO #(LOINC) 0.00 - 0.50 x10EE3/U L EO # 0.00 LAB Baso #(LOINC) 0.00 - 0.10 x10EE3/U L Baso # 0.00 LAB MANUAL DIFF(LOINC) MANUAL DIFF N/A LAB MORPHOLOGY(LOINC ) MORPHOLOGY N/A Result Comment: {CD] Performed By: #### [id number] #### [place] [address] OCCULT BLOOD GASTRIC Collected: 11/21/2017 Status: F Source: [facility] 10:54 [facility] REPOSITORY TYPE CODE TESTS RESULT OUT OF REFERENCE UNITS RANGE LAB OCCULT BLOOD GASTRIC(LOIN C) OCCULT BLOOD GASTRIC Result Comment: { OCCULT BLOOD POSITIVE (NEGATIVE ) { SPECIMEN GASTRIC ASPIRATE LAB PH(LOINC) PH 3 Performed By: #### [id number] #### [place] [address] URINALYSIS Collected: 11/21/2017 Status: F Source: [facility] 10:54 AM [facility] REPOSITORY TYPE CODE TESTS RESULT OUT [...] ) NORMAL NORM Urobilinog LAB Sp NORMAL: [place](LOINC) 1.010-1.030 Sp 1.015 [place] LAB Nitrite(LOINC) NORMAL: NEGATIVE Nitrite NEG LAB [...] PERFORMED USING UNSPUN URINE Performed By: #### [id number] #### [facility],[address] [place] [address] BMP WITH EGFR Collected: 11/21/2017 Status: F Source: [facility] 10:30 AM [facility] REPOSITORY TYPE CODE TESTS RESULT OUT OF RANGE REFERENCE UNITS LAB BMP with eGFR(LOINC) BMP with eGFR Result Comment: BASIC METABOLIC PANEL LAB SODIUM(LOINC) 136 - 145 mmol/l Low SODIUM 128 LAB POTASSIUM(LOINC) 3.5 - 5.1 mmol/L High Alert POTASSIUM 8.1 Result Comment: { CALLED TO KANA AT 1110/HM { READ BACK BY KANA, RA 1110 LAB CHLORIDE(LOINC) 98 - 107 [...] OF AGE AND OLDER. Performed By: #### [id number] #### [place] [address] CHEST 1 VIEW Observed: 11/21/2017 Status: F Source: [facility] 10:28 AM [place] [address] Patient: JUAN KELLY Phone#: : [phone] Age: 47 Gender: F Pt. Type: ER Account: [id number] Location: [facility] Ordering: NAMAN VUONG Exam Date: 11/21/2017/10:16 Family Phys: JAROCHO BARROW Charge Code: 233148 Physician: [place] Order #: [id number] DLP Dose#: PROCEDURE: X-RAY CHEST 1 VIEW COMPARISON: [facility], CHEST 2 VIEWS, 06/25/2017, 9:27. INDICATIONS: Weakness [...] tip is in not included in the [id number]. - Surgical clips are present in the [...] Status: F Source: [facility] 8:00 AM [facility] REPOSITORY TYPE CODE TESTS RESULT OUT [...] x10EE3/U L Neut # High 20.90 LAB Coffey #(LOINC) 0.20 - 1.00 x10EE3/U L Coffey # 0.70 LAB EO #(LOINC) 0.00 - 0.50 x10EE3/U L EO # 0.00 LAB Baso #(LOINC) 0.00 - 0.10 x10EE3/U L Baso # 0.10 LAB MANUAL DIFF(LOINC) MANUAL DIFF N/A LAB MORPHOLOGY(LOINC ) MORPHOLOGY N/A Result Comment: {CD] Performed By: #### [id number] #### [place] [address] APTT Collected: 11/21/2017 Status: F Source: [facility] 8:00 AM [facility] REPOSITORY TYPE CODE TESTS RESULT OUT OF RANGE REFERENCE UNITS LAB PTT(LOINC) 21.6 - 35.4 sec PTT 27.7 Performed By: #### [id number] #### [place] [address] PROTHROMBIN TIME AND Collected: 11/21/2017 Status: F Source: [facility] INR 8:00 [facility] REPOSITORY TYPE CODE TESTS RESULT OUT OF [...] 3.5 MECHANICAL HEART VALVES Performed By: #### [id number] #### [place] [address] TROPONIN Collected: 11/21/2017 Status: F Source: [facility] 8:00 [facility] TYPE CODE TESTS RESULT OUT OF REFERENCE [...] such as heterophile antibodies). Performed By: #### [id number] #### [place] [address] CPK Collected: 11/21/2017 Status: F Source: [facility] 8:00 [facility] TYPE CODE TESTS RESULT OUT OF RANGE REFERENCE UNITS LAB CPK(LOINC) 26 - 140 U/L High CPK 657 Performed By: #### [id number] #### [place] [address] LACTATE Collected: 11/21/2017 Status: F Source: [facility] 8:00 [facility] REPOSITORY TYPE CODE TESTS RESULT OUT OF REFERENCE UNITS RANGE LAB LACTATE(LIZETT 4.5 - 18.0 mg/dL NC) High Alert LACTATE 47.2 Result Comment: { CALLED TO TERI AT 0857/ { READ BACK BY RA TERI 0857 { TEST REPEATED Performed By: #### [id number] #### [place] [address] BB TYPE & SCREEN Collected: 11/21/2017 Status: F Source: [facility] 8:00 [facility] REPOSITORY TYPE CODE TESTS RESULT OUT OF REFERENCE UNITS RANGE LAB BB TYPE & SCREEN(LOIN C) BB TYPE & SCREEN Result Comment: TYPE, Rh, AND SCREEN LAB ABO(LOINC) ABO B LAB Rh(LOINC) Rh NEG LAB ANTIBODY SCR(LOINC) ANTIBODY negative SCR Performed By: #### [id number] #### [facility],[address] [place] [address] BB CROSSMATCH 1ST UNIT Collected: 11/21/2017 Status: F Source: [facility] 8:00 AM [facility] REPOSITORY TYPE CODE TESTS RESULT OUT OF REFERENCE UNITS RANGE LAB BB CROSSMATCH 1ST UNIT(LOINC) BB CROSSMATCH 1ST UNIT Result Comment: [id number] REQUEST FOR BLOOD OR BLOOD COMPONENT UNIT #_1 [id number]/[id number]. LAB Component(LOINC) Component [facility] LAB Pt's ABO/Rh(LOINC) Pt's ABO/Rh B NEGATIVE LAB Donor's ABO/Rh(LOINC) Donor's ABO/Rh O NEGATIVE LAB Donor's Unit No(LOINC) Donor's Unit No [id number] LAB N(LOINC) Unit Exp Date 12/08/17 LAB [...] UPON COMPLETION OF TRANSFUSION. Performed By: #### [id number] #### [facility],[address] [place], [place] [address] CMP WITH EGFR Collected: 11/21/2017 Status: F Source: [facility] 8:00 AM [facility] REPOSITORY TYPE CODE TESTS RESULT OUT OF RANGE REFERENCE UNITS LAB CMP with eGFR(LOINC) CMP with eGFR Result Comment: COMPREHENSIVE METABOLIC PANEL LAB SODIUM(LOINC) 136 - 145 mmol/l Low SODIUM 126 LAB POTASSIUM(LOINC) 3.5 - 5.1 mmol/L High Alert POTASSIUM 7.1 Result Comment: { CALLED TO LINDSEY AT 0909/HM { READ BACK BY LINDSEY, RA 0909 LAB CHLORIDE(LOINC) 98 - 107 mmol/L [...] OF AGE AND OLDER. Performed By: #### [id number] #### [facility],[address] [place] [address] BB CROSSMATCH Collected: 11/21/2017 Status: F Source: [facility] ADDITIONAL UNIT 8:00 AM [facility] REPOSITORY TYPE CODE TESTS RESULT OUT OF REFERENCE UNITS RANGE LAB BB CROSSMATCH ADDITIONAL UNIT(LOINC) BB CROSSMATCH ADDITIONAL UNIT Result Comment: [id number] REQUEST FOR BLOOD OR BLOOD COMPONENT UNIT #_2 11/21/[id number]. LAB Component(LOINC) Component [facility] LAB Pt's ABO/Rh(LOINC) Pt's ABO/Rh B NEGATIVE LAB Donor's ABO/Rh(LOINC) Donor's ABO/Rh O NEGATIVE LAB Don[facility]'s Unit No(LOINC) Donor's Unit No [id number] LAB N(LOINC) Unit Exp Date 12/08/17 LAB [...] UPON COMPLETION OF TRANSFUSION. Performed By: #### [id number] #### [facility],[address] [place] [id number] Observed: 11/21/2017 Status: Xochilt Source: [facility] CULTURE BLOOD 8:00 AM [facility] REPOSITORY CULTURE BLOOD CULTURE BLOOD SET: 1 of 1 24HOUR REPORT NEGATIVE 48HOUR REPORT NEGATIVE 72HOUR REPORT NEGATIVE M I C R O B I O L O G Y R E P O R T FINAL Antimicrobial Susceptibility and Organism Identification Report Specimen Number : [id number] Requested : 11/21/17 Specimen Source : BLOOD Collected : 11/21/17 08:00 [facility] : Emergency Room Received : 11/21/17 08:00 Requesting Physician : ERROL DE LEON Patient/Specimen Tests and Comments Specimen Comments FINAL REPORT: No Growth at 5 Days Tech : Source : BLOOD ID # : [id number] FINAL Report Date : / / : Collected : 11/21/17 08:00 11/26/17.1200.BKO. 11/26/17.1200.[id number].COMPLETE Performed By: #### [id number] #### [facility],15 [place] [address] EMERGENCY REPORT Observed: 11/21/2017 Status: F Source: [facility] 7:42 AM [facility] EMERGENCY ROOM REPORT NAME ACCOUNT SEX AGE ADMIT DISCHARGE PT MED. RECORD# NUMBER DATE DATE TYPE JUAN KELLY [id number] F 47 11/21/17 11/21/17 3 [id number] ROOM: ER DATE OF : 1970 DICTATING [...] is very soft Page 1 of 3 JUAN KELLY Emergency Room Report and nontender. She [...] case with Dr. Rosen who referred to [facility] agency sales director. The patient has been to [place] before. I discussed the case with Dr. [...] remained good. Her Page 2 of 3 JUAN KELLY Emergency Room Report rhythm remained chaotic [...] the case again with Dr. Huynh at [facility] and he advised giving additional bicarb and [...] We tried to arrange air transport to [facility], but because of weather, they were not [...] Naman Vuong MD 11/21/17 13:24 JOB #: [id number] Transcribed By: jaylen 11/21/17 13:33 Electronically signed by: BANG Vuong M.D. 11/26/17 07:38 Page 3 of 3 JUAN KELLY Emergency Room Report CV VENOUS LEG RT Observed: 11/17/2017 Status: F Source: [facility] 10:[address] [address] Patient: JUAN KELLY Phone#: : 1970 Age: 47 Gender: F Pt. Type: ER Account: [id number] Location: 052 Ordering: ARLETH CHRISTOPHER Exam Date: 11/17/2017/10:07 Family Phys: KANNAN GAMBLE Charge Code: [id number] Physician: DR. ARLETH NICKERSON [place] Order #: [id number] DLP Dose#: PROCEDURE: VENOUS DOPPLER RT LEG COMPARISON: None. INDICATIONS: Pain TECHNIQUE: Color duplex Doppler ultrasound evaluation analysis was performed in the usual manner. SHOP LABORER: MARTINA RISK FACTORS FOR VENOUS DISEASE: EXAMINATION: RIGHT [...] PERONEAL V + GSV GASTROC SOLEAL V SHOP LABORER'S NOTES: Lymph node noted in right groin. Echolucent structure noted above the right knee. Continued Report - Page 2 of 2 Patient: JUAN KELLY Phone#: : 1970 Age: 47 Gender: F Pt. Type: ER Account: [id number] Location: 052 Ordering: ARLETH CHRISTOPHER Exam Date: 11/17/2017/10:07 Family Phys: KANNAN GAMBLE Charge Code: [id number] Physician: DR. ARLETH NICKERSON [place] Order #: [id number] DLP Dose#: FINDINGS: THROMBI: None visible. COMPRESSIBILITY: [...] Status: F Source: [facility] 9:08 AM [facility] EMERGENCY ROOM REPORT NAME ACCOUNT SEX AGE ADMIT DISCHARGE PT MED. RECORD# NUMBER DATE DATE TYPE JUAN KELLY [id number] F 47 11/17/17 11/17/17 3 10592 ROOM: ER DATE OF : 1970 DICTATING PHYSICIAN: Arleth Nickerson CHIEF COMPLAINT: Right leg pain. HISTORY [...] their doctor, their primary care physician at [facility], Dr. Gamble, to treat the pain. She [...] with no obvious Page 1 of 2 JUAN KELLY Emergency Room Report swelling or signs of Homans. Good pulses and perfusion femorally. She does not have any bony tenderness or ligamentous instability to the knee itself. She presents for evaluation. PLAN/DISPOSITION: I will get a Duplex ultrasound, give her something for pain and contact her primary care doctor, Dr. Gamble. Dictated By: Arleth Nickerson DO 11/17/17 09:35 JOB #: [id number] Transcribed By: sp 11/17/17 19:22 Electronically signed by: E-Sign: ARLETH NICKERSON MD 01/06/18 12:00 Page 2 of 2 JUAN KELLY Emergency Room Report EMERGENCY REPORT Observed: 11/17/2017 Status: F [facility] AM [facility] EM[facility]GENCY ROOM REPORT NAME ACCOUNT SEX AGE ADMIT DISCHARGE PT MED. RECORD# NUMBER DATE DATE TYPE LETICIA JUAN Betancourt [id number] F 47 11/17/17 11/17/17 3 31253 ROOM: ER DATE OF : 1970 DICTATING PHYSICIAN: Arleth Nickerson ADDENDUM: CHIEF COMPLAINT: Right leg pain. [...] reasons for ED return sooner. Dictated By: Arleth Nickerson DO 11/17/17 10:25 JOB #: [id number] Transcribed By: am 11/17/17 19:50 Electronically signed by: E-Sign: ARLETH NICKERSON MD 01/06/18 12:00 Page 1 of 1 JUAN KELLY Emergency Room Report PROGRESS Observed: 11/06/2017 Status: COMPLETED Source: [place] 8:07 AM [facility] [place] REPOSITORY O ID: [id number] Author: Augustina GomezLocal Driver) Podlogar Service: (none) Author Type: Nurse Practitioner Type: Progress Notes Filed: 11/07/2017 11:16 AM Note Text: 46 year old female here for INACTIVATED INFLUENZA VACCINE. 5749-1258 Season Patient is identified by name and date of : Yes [] CONTRAINDICATIONS color enhanced section Age less than 6 months? No Allergy to eggs, chicken, chicken feathers, or chicken dander? No Allergy to thimerosal (a preservative) or formaldehyde, gelatin? No History of severe reaction to any vaccine component or a previous dose of influenza vaccination? 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 Yes See immunization activity in EpicCare for details of immunizations adminstered today. Patient age: [age] year old For The 0778-6890 Flu Season 6-35 months old: Fluzone 0.25 [...] dose in one months time. Reviewed Augustina Podlogar, PAIGE.SENDY PROGRESS Observed: 11/06/2017 Status: COMPLETED Source: [place] 8:00 AM [facility] REPOSITORY HNO ID: [id number] Author: Augustina (Sendy) Podlogar Service: (none) Author Type: Nurse Practitioner Type: Progress Notes Filed: 11/07/2017 11:16 AM Note Text: 11/06/2017 Patient presents with: ER F/U: kana vázquezjasmeet krt knee injury 10/24/17 SUBJECTIVE: This is [...] ESRD (end stage renal disease) on dialysis ([facility]) 03/2017 Dr. Prieto ALLERGIES Augmentin [Amoxicillin-Pot Clavulanate]; [...] tablet calcium acetate (PHOSLO) 667 mg capsule DIRECTOR OF TEACHER EDUCATION-ROSLYN RX tablet cyclobenzaprine (FLEXERIL) 10 mg tablet [...] activity was identified. 11/06/2017 by Augustina Vaughn APRN.SENDY - flexeril 10 mg three times daily [...] plan. CNOV Observed: 11/06/2017 Status: COMPLETED Source: [place] 7:40 AM [facility] REPOSITORY Office Visit (FAMPWS) JUAN KELLY ([id number]) 1970 F TRN Date Time Provider Department 11/06/17 7:40 AM AUGUSTINA VAUGHN (SENDY) RENETTA During your visit today, we recorded [...] MEDICAL HISTORY Diagnosis Date - Diabetes mellitus ([facility]) - ESRD (end stage renal disease) on dialysis ([facility]) 03/2017 Dr. Prieto ALLERGIES Augmentin [Amoxicillin-Pot Clavulanate]; [...] tablet calcium acetate (PHOSLO) 667 mg capsule DIRECTOR OF TEACHER EDUCATION-ROSLYN RX tablet cyclobenzaprine (FLEXERIL) 10 mg tablet [...] activity was identified. 11/06/2017 by Augustina Vaughn APRN.CAFETERIA SUPERVISOR - flexeril 10 mg three times daily [...] AGE 3 YRS PLUS + IM Augustina Podlogar, STAFF RESPIRATORY THERAPIST.CAFETERIA SUPERVISOR Prescription instructions reviewed with patient as applicable. Patient advised if symptoms do not improve or if symptoms worsen sooner, to contact their primary care physician. Potential red flag symptoms discussed with the patient. Reviewed appropriate action plan to take if red flag symptoms occur. Patient agreeable to treatment plan. Augustina Vaughn, PAIGE.SENDY 11/07/2017 11:16 AM Signed 46 year old female here for INACTIVATED INFLUENZA VACCINE. 2849-3843 Season Patient is identified by name and date of : Yes [] CONTRAINDICATIONS color enhanced section Age less than 6 months? No Allergy to eggs, chicken, chicken feathers, or chicken dander? No Allergy to thimerosal (a preservative) or formaldehyde, gelatin? No History of severe reaction to any vaccine component or a previous dose of influenza vaccination? 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 Yes See immunization activity in [facility] for details of immunizations adminstered today. Patient age: [age] year old For The 2830-3830 Flu Season 6-35 months old: Fluzone 0.25 [...] dose in one months time. Reviewed Augustina PodlogarBLAINE PodlogBLAINE ardon 11/06/2017 8:33 AM Signed Use [...] [Z23] Order(s):TETANUS/DIPTHERIA BOOSTER (OVER 7), PF IM [[id number]] Order #: [id number] INFLUENZA VACCINE QUADRIVALENT AGE 3 YRS PLUS + IM [[id number]] Order #: [id number] XR KNEE GENERAL 4V AP BOTH/PA BOTH/LAT/MERC RT [[id number]] Order #: [id number] FUTURE CONSULT TO ORTHOPAEDICS [9085] Order #: [id number]: 1 CONSULT TO PHYSICAL THERAPY [9032] Order #: [id number]: 1 cyclobenzaprine (FLEXERIL) 10 mg tabletTake 1 [...] MG TABLET CALCIUM ACETATE 667 MG CAPSULE DIRECTOR OF TEACHER EDUCATION-ROSLYN RX 1 MG-60 MG-300 MCG* CYCLOBENZAPRINE 10 MG TABLET Take 1 tablet by mouth three * PREDNISONE 20 MG TABLET Take 1 tablet by mouth once d* TRAMADOL 50 MG TABLET Take 1 tablet by mouth twice * Problem List As Of Date 11/06/2017 Noted Resolved ESRD (end stage renal disease) (HCC) [N18.6] INVALID FOR* More... Other instructions from [...] people? -> Very difficult Encounter Status:Closed by AUGUSTINA VAUGHN CNP on 11/07/17 PROGRESS Observed: 11/05/2017 Status: COMPLETED Source: [place] 10:10 AM [facility] REPOSITORY [facility] ID: [id number] Author: Charissa Manriquez LPN Service: (none) Author [...] alert AND oriented. Pt was seen at [facility] 10/25/17 after a fall. She was Dx'd [...] She is scheduled for tomorrow 11/06/17 with CONTRACT ASSOCIATE MANAGER Podlogar. Pt has been identified by name [...] LPN CNNURSE Observed: 11/05/2017 Status: COMPLETED Source: [place] 9:15 AM [facility] REPOSITORY Nurse Visit (FAMPWS) JUAN KELLY ([id number]) 1970 F TRN Date Time Provider Department 11/05/17 9:15 AM [facility] your [facility] today, we recorded [...] alert AND oriented. Pt was seen at [facility] 10/25/17 after a fall. She was Dx'd [...] She is scheduled for tomorrow 11/06/17 with CONTRACT ASSOCIATE MANAGER Podlogar. Pt has been identified by name [...] Charissa Manriquez LPN Referring Provider: KANNAN GAMBLE) [[id number]] Allergies As of Date: 11/05/2017 Noted Allergy [...] once kailash* CALCIUM ACETATE 667 MG CAPSULE DIRECTOR OF TEACHER EDUCATION-ROSLYN RX 1 MG-60 MG-300 MCG* OXYCODONE-ACETAMINOPHEN 10 [...] VIEWS Observed: 10/27/2017 Status: F [facility]05 PM [place] [address] Patient: JUAN KELLY Phone#: : 1970 Age: 46 Gender: F Pt. Type: ER Account: [id number] Location: [facility] Ordering: JORGE ALEMAN Exam Date: 10/27/2017/19:50 Family Phys: JAROCHO BARROW Charge Code: [id number] Physician: [place] Order #: [id number] DLP Dose#: PROCEDURE: X-RAY FEMUR RT MIN [...] 8:29 CNCO Observed: 10/24/2017 Status: COMPLETED Source: [place] 12:00 AM [facility] REPOSITORY Letter Text Kidney and Pancreas Transplant Program Pre-Transplant Office [address] [place] [address], [place] [address] , ext. [phone] October 24, 2017 Dear Mrs. Juan Kelly, Thank you for choosing [facility] for your transplant care. Please see [...] marked items faxed to our office at [phone]. __X___ Mammogram - all females age 40 and older Also, if you have had any of the following tests within the past 12 months, please forward the results to our office as soon as possible. EKG Chest X-Ray Echocardiogram Cardiac Stress Test CT of the Abdomen and Pelvis During your evaluation, you will see the following transplant team members: Liner Machine Operator Helper Transplant Physician(s) Transplant Surgeon Coat Fitter Skimmer Scoop Operator Carpenter/Labor We request that you bring the following [...] will need to be scheduled at a [facility] or [facility]. Please be advised that we cannot make a determination regarding placing you on the [facility] and [facility] for Organ Sharing [...] rescheduling your evaluation. Please contact us at [phone] or toll-free at , ext. [phone] if you have any questions or if you need to cancel and reschedule your upcoming evaluation appointments. Again, thank you for choosing [facility] for your transplant care. We look forward to assisting you through the kidney transplant evaluation process. Sincerely, The [facility]ney and Pancreas Transplant Program PROGRESS Observed: 10/22/2017 Status: COMPLETED Source: [place] 3:46 PM [facility] REPOSITORY O ID: [id number] Author: Kannan Narayanan) Demetra Service: (none) Author Type: Physician Type: Progress Notes Filed: 10/22/2017 8:12 PM Note Text: Chief Complaint Patient presents with: Sleep Problem HPI Juan Kelly is a 46 year old female who presents here today for Above Complaints. PCP is Dr. Barrow in [place], but is looking for new PCP. Accompanied [...] ESRD (end stage renal disease) on dialysis ([facility]) 03/2017 Dr. Prieto Previous Surgical History No [...] tablet cloNIDine HCl (CATAPRES) 0.1 mg tablet DIRECTOR OF TEACHER EDUCATION-ROSLYN RX tablet No current facility-administered medications on [...] MD CNOV Observed: 10/22/2017 Status: COMPLETED Source: [place] 3:40 PM [facility] REPOSITORY Office Visit (FAMPWS) LETICIAJUAN Serafin ([id number]) 1970 F TRN Date Time Provider Department 10/22/17 3:40 PM KANNAN GAMBLE) FAMPWS During your visit today, we recorded the following information about you: Pulse Respiration Blood pressure Weight 84/minute 14/minute 184/102 86.6 kg Kannan Gamble MD 10/22/2017 8:12 PM Signed Chief Complaint Patient presents with: Sleep Problem HPI Juan Kelly is a 46 year old female who presents here today for Above Complaints. PCP is Dr. Barrow in [place], but is looking for new PCP. Accompanied [...] ESRD (end stage renal disease) on dialysis ([facility]) 03/2017 Dr. Prieto Previous Surgical History No [...] tablet cloNIDine HCl (CATAPRES) 0.1 mg tablet DIRECTOR OF TEACHER EDUCATION-ROSLYN RX tablet No current facility-administered medications on [...] regimen. 4. ESRD (end stage renal disease) ([facility]) - ICD9: 585.6, ICD10: N18.6 See above. Kannan Gamble MD Referring Provider: JAROCHO BARROW [[id number]] Allergies As of Date: 10/22/2017 Noted Allergy [...] urgency [I16.0] ESRD (end stage renal disease) ([facility]) [N18.6] Order(s):cloNIDine HCl (CATAPRES) 0.1 mg tablet1 [...] MG TABLET CALCIUM ACETATE 667 MG CAPSULE DIRECTOR OF TEACHER EDUCATION-ROSLYN RX 1 MG-60 MG-300 MCG* SERTRALINE 50 MG TABLET Take 1 tablet by mouth once d* Problem List As Of Date 10/22/2017 Noted Resolved ESRD (end stage renal disease) ([facility]) [N18.6] INVALID FOR* More... Prescriptions ordered this [...] EMERGENCY REPORT Observed: 10/21/2017 Status: F Source: [facility] 4:51 PM [facility] EMERGENCY ROOM REPORT NAME ACCOUNT SEX AGE ADMIT DISCHARGE PT MED. RECORD# NUMBER DATE DATE TYPE JUAN KELLY [id number] F 46 10/20/17 3 34374 ROOM: ER DATE OF : 1970 DICTATING PHYSICIAN: Arleth Nickerson CHIEF COMPLAINT: Recheck. HISTORY OF PRESENT [...] Recheck elevated potassium. Page 1 of 2 JUAN KELLY Emergency Room Report PLAN/DISPOSITION: She is going to follow up with her family doctor on Friday. It is going to be a new family doctor, and they will discuss the potassium and monitor that, and we discussed reasons for ED return sooner. Dictated By: Arleth Nickerson DO 10/20/17 13:51 JOB #: [id number] Transcribed By: am 10/20/17 13:59 Electronically signed by: E-Sign: ARLETH NICKERSON MD 10/21/17 16:45 Page 2 of 2 JUAN KELLY Emergency Room Report EMERGENCY REPORT Observed: 10/21/2017 Status: F Source: [facility] 4:50 PM [facility] EMERGENCY ROOM REPORT NAME ACCOUNT SEX AGE ADMIT DISCHARGE PT MED. RECORD# NUMBER DATE DATE TYPE JUAN KELLY [id number] F 46 10/19/17 10/19/17 3 71890 ROOM: ER DATE OF : 1970 DICTATING PHYSICIAN: Arleth Nickerson CHIEF COMPLAINT: Insomnia. HISTORY OF PRESENT ILLNESS: This is a 46-year-old female with end-stage renal disease on peritoneal dialysis that they are trying to get on a transplant list. She has multiple specialist including the [facility] and has peritoneal dialysis at home. [...] No intraoral lesions. Page 1 of 2 JUAN KELLY Emergency Room Report Posterior pharynx is [...] I am concerned about hallucinations, especially with Ambien, I have wrote her for 10 Lunesta; [...] discharged in baseline stable condition. Dictated By: Arleth Nickerson DO 10/19/17 13:20 JOB #: [id number] Transcribed By: am 10/20/17 09:33 Electronically signed by: E-Sign: ARLETH NICKERSON MD 10/21/17 16:45 Page 2 of 2 JUAN KELLY Emergency Room Report BMP WITH EGFR Collected: 10/20/2017 Status: F Source: [facility] 12:55 PM [facility] REPOSITORY TYPE CODE TESTS RESULT OUT [...] OF AGE AND OLDER. Performed By: #### [id number] #### [facility],[address] [place] [address] CBC Collected: 10/19/2017 Status: F Source: [facility] 11:40 AM [facility] REPOSITORY TYPE CODE TESTS RESULT OUT [...] x10EE3/U L Neut # High 8.80 LAB Coffey #(LOINC) 0.20 - 1.00 x10EE3/U L Coffey # 0.80 LAB EO #(LOINC) 0.00 - 0.50 x10EE3/U L EO # 0.20 LAB Baso #(LOINC) 0.00 - 0.10 x10EE3/U L Baso # 0.10 LAB MANUAL DIFF(LOINC) MANUAL DIFF N/A LAB MORPHOLOGY(INC ) MORPHOLOGY N/A Result Comment: {CD] Performed By: #### [id number] #### [facility],[address] [place] [address] URINALYSIS Collected: 10/19/2017 Status: F Source: [facility] 11:40 AM [facility] REPOSITORY TYPE CODE TESTS RESULT OUT OF REFERENCE UNITS RANGE LAB URINALYSIS (INC) URINALYSIS Result Comment: URINALYSIS LAB Specimen Type([facility]) Specimen Type R LAB Color(LOINC) NORMAL: YELLOW Color yellow LAB Clarity(LOINC) NORMAL: CLEAR Clarity clear LAB ph(LOINC) NORMAL: 5.0-8.0 ph 8 LAB Protein(LOINC) NORMAL: NEGATIVE Protein Abnormal 500 LAB Glucose(LOINC) NORMAL: NORMAL Glucose Abnormal 1000 LAB Ketone(LOINC) NORMAL: NEGATIVE Ketone NEG LAB Bilirubin(LOINC) NORMAL: NEGATIVE Bilirubin NEG LAB Blood(LOINC) NORMAL: NEGATIVE Blood Abnormal 150 LAB Urobilinog(LOINC) NORMAL: NORMAL Urobilinog NORM LAB Sp [place](LOINC) NORMAL: 1.010-1.030 Sp [place] 1.015 LAB Nitrite(LOINC) NORMAL: NEGATIVE Nitrite NEG [...] LAB Yeast(LOINC) Yeast NONE Performed By: #### [id number] #### [facility],[address] [place] [address] CMP WITH EGFR Collected: 10/19/2017 Status: F Source: [facility] 11:40 AM [facility] REPOSITORY TYPE CODE TESTS RESULT OUT [...] OF AGE AND OLDER. Performed By: #### [id number] #### [facility],[address] [place] [id number] PROGRESS Observed: 09/24/2017 Status: COMPLETED Source: [place] 11:03 AM [facility] REPOSITORY HNO ID: [id number] Author: Prasad (Rn) RODRIGO Virgen Service: (none) Author Type: Registered Nurse Type: Progress Notes Filed: 09/24/2017 11:23 AM Note Text: Left voicemail for patient to bring with her the PAP and colonoscopy results she indicated were done two years ago with her to clinic appointment. Also advised her to quit smoking per transplant care path. New Referral Referring Physician Dr. Winston Cai MD Organ Type kidney ESRD Yes. Cause: DM type 2/HTN Dialysis Dependant? Yes Name of Dialysis Facility: [place], [place] Diabetes Yes. Diagnosed at age 21, [...] N/A Prasad Virgen RN Pre-Kidney AND Pancreas Liner Machine Operator Helper [facility] HGB A1C Collected: 09/18/2017 Status: F Source: [facility] 11:46 AM [facility] REPOSITORY TYPE CODE TESTS RESULT OUT OF RANGE REFERENCE UNITS LAB HGB 4.4 - 6.4 % A1C(LOINC) High HGB A1C 8.7 Result Comment: {HB] {A1] Performed By: #### [id number] #### [address] [address] TSH Collected: 09/18/2017 Status: F Source: [facility] 11:46 AM [facility] REPOSITORY TYPE CODE TESTS RESULT OUT OF RANGE REFERENCE UNITS LAB TSH(LOINC) 0.34 - 5.60 uIU/ml TSH 2.48 Performed By: #### [id number] #### [place] [id number] PT ED Observed: 08/01/2017 Status: COMPLETED Source: [place] 4:30 PM [facility] REPOSITORY HNO ID: [id number] Author: Charissa GomezRn) RODRIGO Chávez Service: (none) Author Type: Registered Nurse Type: Patient Education Filed: 08/01/2017 4:31 PM Note Text: PATIENT EDUCATION TOPIC: PROCEDURE / SURGERY: Post-op Teaching: Wound Care PATIENT NAME: Juan Kelly PATIENT LOCATION: [place] [address] READINESS TO LEARN COGNITIVE ABILITY: Alert and [...] ANES POST Observed: 08/01/2017 Status: COMPLETED Source: [place] 4:15 PM [facility] REPOSITORY HNO ID: [id number] Author: Dick Moise Service: (none) Author Type: [...] Remarks: SIGNATURE: Adin Moise MD PATIENT NAME: Juan Kelly DATE: August 01, 2017 TIME: 4:15 PM PAGER/CONTACT #: ANES POST Observed: 08/01/2017 Status: COMPLETED Source: [place] 3:16 PM [facility] REPOSITORY [facility] ID: [id number] Author: Darshan Cota Service: Anesthesiology Author Type: Anesthesiologist Type: Anesthesia PostOp Filed: 08/01/2017 3:16 PM Note Text: POST ANESTHESIA EVALUATION NOTE SERVICE DATE: 08/01/2017 SERVICE TIME: 1520 : 1970 Vitals: 08/01/17 1106 Temp: 37 [...] Remarks: SIGNATURE: Darshan Cota MD PATIENT NAME: Juan Kelly DATE: August 01, 2017 TIME: 3:16 PM PAGER/CONTACT #: [phone] BRIEF OP NOT Observed: 08/01/2017 Status: COMPLETED Source: [place] 2:54 PM [facility] REPOSITORY HNO ID: [id number] Author: Darrell Singh Service: General Surgery Author Type: Physician Type: Brief Op Note Filed: 08/01/2017 2:56 PM Note Text: BRIEF OPERATIVE / PROCEDURE NOTE LOG ID: [id number] SURGERY/PROCEDURE DATE: 08/01/2017 INCISION/PROCEDURE START TIME: 2:02 PM INCISION CLOSE/PROCEDURE END TIME: SURGEON(S)/PROCEDURALIST(S) AND ELECTRICAL LINEWORKER(S): Surgeon(s) and Role: * Darrell Singh - Primary * Juan (Res) MD Stefani - Resident - Assisting No Additional Staff SURGERY/PROCEDURE(S): laparoscopic PD catheter placement; lap omentopexy ANESTHESIA: General FINDINGS: excellent flush/return to gravity. ESTIMATED BLOOD LOSS: minimal. SPECIMENS: None COMPLICATIONS: None PRE-OP/PRE-PROCEDURE DIAGNOSIS: ESRD POST-OP/POST-PROCEDURE DIAGNOSIS: * No post-op diagnosis entered * same SIGNATURE: Darrell Singh MD PATIENT NAME: Juan Kelly DATE: August 01, 2017 TIME: 2:55 PM PAGER/CONTACT #: [phone] + ALL Collected: 08/01/2017 Status: F Source: [place] 11:16 AM [facility] REPOSITORY TYPE CODE TESTS RESULT [...] Lactate 1.0 Performed By: #### VALLBG #### [place] [address] PT ED Observed: 08/01/2017 Status: COMPLETED Source: [place] 10:41 AM [facility] REPOSITORY HNO ID: [id number] Author: Roz (Rn) RODRIGO [place] Service: (none) Author Type: Registered Nurse [...] Signed By: Roz Booth RN In Department: [place] [address] OPERATIVE NO Observed: 08/01/2017 Status: COMPLETED Source: [place] 12:00 AM [facility] REPOSITORY HNO ID: [id number] Author: Darrell Singh Service: General Surgery Author Type: Physician Type: Operative Report Filed: 08/02/2017 9:36 AM Note Text: [place] [address] [place] OPERATIVE REPORT NAME: JUAN KELLY [facility] #: [id number] DATE: 08/01/2017 AGE: 46 SURGEON 1: Darrell Singh M.D. SURGEON 2: ELECTRICAL LINEWORKER 1: Juan Ko M.D. ELECTRICAL LINEWORKER 2: OPERATION: 1. Laparoscopic peritoneal dialysis catheter placement. 2. Laparoscopic omentopexy. ANESTHESIA: General endotracheal. PREOPERATIVE DIAGNOSIS: End-stage renal disease. POSTOPERATIVE DIAGNOSIS: End-stage renal disease. OPERATIVE INDICATIONS: The patient is a 46-year-old female with history of end- stage renal disease related to diabetes. She has been on hemodialysis and is miserable on this modality. She was referred to [facility] for peritoneal dialysis catheter placement. The risks, [...] until closure at 305. Darrell Singh M.D. SR:[id number] /[id number] cc: ECG COMPLETE W Observed: 07/22/2017 Status: F Source: [place] INTERPRETATION 1:06 PM [facility] REPOSITORY NAME : JUAN KELLY PID : [id number] : 1970 Gender : Female Race : ORD : [id number] Procedure Date : Jul 22 2017 13:06:46 Edit Date : Jul 28 2017 10:11:16 Diagnosis:NORMAL SINUS RHYTHM NORMAL ECG Confirmed by Darryl MERINO M.D. (22) on 07/28/2017 10:04:37 AM Ventricular Rate : 86 BPM Atrial Rate : 86 BPM P-R Interval : 178 ms QRS Duration : 90 ms Q-T Interval : 398 ms QTC Calculation(Bezet) : 476 ms P Brenham : 73 degrees R Brenham : 6 degrees T Brenham : 42 degrees Test Reason : Location : 119 : A17 Overread By : Darryl MERINO M.D. Edited By : Darryl MERINO M.D. Referred By : DARRELL SINGH Acquired by : ELOINA EDWARDS CONFIRM BLOOD TYPE Collected: 07/22/2017 Status: F Source: [place] 12:29 PM [facility] REPOSITORY TYPE CODE TESTS RESULT OUT OF REFERENCE UNITS RANGE LAB %ABR B ABO/RH(D) NEGATIVE Performed By: #### CONABO #### [facility] [address] [place] [address] TYPE AND SCREEN Collected: 07/22/2017 Status: F Source: [place] 12:29 PM [facility] REPOSITORY TYPE CODE TESTS RESULT OUT OF REFERENCE UNITS RANGE LAB %ABR B ABO/RH(D) NEGATIVE LAB % Antibody NEG Screen Performed By: #### TSCR #### [facility] [address] [place] [address] CBC Collected: 07/22/2017 Status: F Source: [place] 12:22 [facility] REPOSITORY TYPE CODE TESTS RESULT OUT OF [...] <0.01 Performed By: #### CBC, CMP #### [facility] [address] [place], [place] [address] COMP METABOLIC PANEL Collected: 07/22/2017 Status: F Source: [place] 12:22 [facility] REPOSITORY TYPE CODE TESTS RESULT OUT OF REFERENCE UNITS RANGE LAB TP 6.3-8.0 g/dL Protein, Total 7.3 LAB ALB 3.9-4.9 g/dL Low Albumin 3.7 LAB CA 8.5-10.2 mg/dL Low Calcium, Total 8.4 LAB TBIL 0.2-1.3 mg/dL Bilirubin, Total 0.2 LAB ALKP 32-117 U/L Alkaline High Phosphatase 128 LAB AST 13-35 U/L AST 24 LAB GLU 74-99 mg/dL Glucose High 508 Result Comment: The [place] Diabetes Association (ADA) provides guidance for cutoff [...] Standards of Medical Care in Diabetes 2016, [place] [employer] Association. Diabetes Care. 2016.39(Suppl 1). Called to and read back by: Melania Dsouza CC Main A100 07/22/2017 1626 C[facility] LAB BUN 7-21 mg/dL BUN High 37 [...] GFR. Performed By: #### CBC, CMP #### [facility] [address] [place], [place] [address] PROGRESS Observed: 07/22/2017 Status: COMPLETED Source: [place] 12:04 PM [facility] REPOSITORY HNO ID: [id number] Author: Adin (Rn) RODRIGO Alfonso Service: (none) Author Type: Registered Nurse [...] HISTORY PHYSICAL Observed: 07/22/2017 Status: COMPLETED Source: [place] 11:40 AM [facility] REPOSITORY HNO ID: [id number] Author: Darrell Singh Service: (none) Author Type: Physician Type: HANDP Filed: 07/22/2017 2:19 PM Note Text: HISTORY AND PHYSICAL EXAMINATION SERVICE DATE: 07/22/2017 SERVICE TIME: 1130 PRIMARY CARE PHYSICIAN: Radha Willingham III, MD REASON FOR VISIT: Juan Kelly is a 46 year old female [...] AC 10-100 mg/5 mL syrup Taking Yes DIRECTOR OF TEACHER EDUCATION-ROSLYN RX tablet Taking Yes No medication comments [...] drinks per day. : Renal failure, Chronic SENIOR WEB ENGINEER: Negative for abnormal vaginal bleeding, abnormal vaginal [...] compliance. SIGNATURE: Darrell Singh MD PATIENT NAME: Juan Kelly DATE: July 22, 2017 TIME: 11:40 AM PAGER/CONTACT #: [email or web address] Observed: 07/22/2017 Status: COMPLETED Source: [place] 10:30 AM [facility] REPOSITORY Office Visit (GENDONNA) JUAN KELLY ([id number]) 1970 F Date Time Provider Department 07/22/17 [...] Radha Willingham III, MD REASON FOR VISIT: Juan Kelly is a 46 year old female [...] AC 10-100 mg/5 mL syrup Taking Yes DIRECTOR OF TEACHER EDUCATION-ROSLYN RX tablet Taking Yes No medication comments [...] drinks per day. : Renal failure, Chronic SENIOR WEB ENGINEER: Negative for abnormal vaginal bleeding, abnormal vaginal [...] compliance. SIGNATURE: Darrell Singh MD PATIENT NAME: Juan Kelly DATE: July 22, 2017 TIME: 11:40 [...] RN In Department: GENERAL SURGERY Referring Provider: WINSTON CAI [[id number]] Allergies As of Date: 07/22/2017 Noted Allergy Reaction AUGMENTIN (AMOXICILLIN-POT CLAVUL*07/22/2017 11 - Vomiting BACTRIM (SULFAMETHOXAZOLE-TRIMETH*07/22/2017 14 - Other: See Comments Comments: Chest pain LASIX (FUROSEMIDE) 07/22/2017 7 - Swelling Date Reviewed: 07/22/2017 Reviewed by: Ricardo Aleman - Fully Assessed Reason for Visit: Consult [173] Primary Visit Diagnosis:ESRD (end stage renal disease) (HCC) [N18.6] Order(s):BASIC METABOLIC PNL [SQBMP] Order #: [id number] FUTURE CBC [SQCBC] Order #: [id number] FUTURE COMP METABOLIC PANEL [SQCMP] Order #: [id number] FUTURE TYPE + SCREEN,30 DAY [EDJRAD93] Order #: [id number] FUTURE CONFIRM BLOOD TYPE [SQCONABO] Order #: [id number] FUTURE ECG COMPLETE W INTERPRETATION [ECG01] Order #: [id number] FUTURE SURGICAL REQUEST - ELECTIVE [1945211] Order #: [id number]: 1 Prescriptions as of 07/22/2017 Sig: ALPRAZOLAM 0.25 MG TABLET AMLODIPINE 10 MG TABLET AMLODIPINE 5 MG TABLET BUSPIRONE 10 MG TABLET CALCIUM ACETATE 667 MG CAPSULE CITALOPRAM 40 MG TABLET CLONIDINE HCL 0.1 MG TABLET VIRTUSSIN AC 10 MG-100 MG/5 M* DIRECTOR OF TEACHER EDUCATION-ROSLYN RX 1 MG-60 MG-300 MCG* Problem List As Of Date 07/22/2017 Noted Resolved ESRD (end stage renal disease) (HCC) [N18.6] INVALID FOR* More... Visit Notes: >> Ricardo Aleman Margret Jul 22, 2017 10:11 AM Status: Signed [...] 07/22/17 PROGRESS Observed: 07/22/2017 Status: COMPLETED Source: [place] 12:00 AM [facility] REPOSITORY O ID: [id number] Author: Darrell Singh Service: General Surgery Author Type: Physician Type: Progress Notes Filed: 07/22/2017 3:01 PM Note Text: [facility] NOTE INDEPENDENCE NAME: JUAN KELLY CLINIC NO.: [id number] DATE OF SERVICE: 07/22/2017 Mrs. Kelly is a 46-year-old female who is referred by Dr. Cai for peritoneal dialysis catheter placement. The patient has a history of end-stage renal disease related to diabetes. She is presently on hemodialysis through a Derek catheter and is miserable on this modality. She discussed this with her water resources project manager and was referred to [place] for peritoneal dialysis catheter placement. On examination, [...] peritoneal dialysis catheter placement here at the [facility] on August 01, 2017. DICTATED BY: Darrell Singh M.D. [facility]/Caesar JOB# [id number] cc: Alisa Marin M.D. [facility] Observed: 07/22/2017 Status: COMPLETED Source: [place] 12:00 AM [facility] REPOSITORY Patient:Juan Kelly MRN: <[id number]> Height:5' 7.008(1.702 m) Weight:175 lb 0.7 oz (79.4 kg) Outpatient Medications as of 08/01/17: insulin aspart U-100 (NOVOLOG FLEXPEN U-100 INSULIN) 100 unit/mL inpn insulin glargine,hum.rec.anlog (LANTUS U-100 INSULIN SUBCUTANEOUS) docusate sodium (COLACE) 100 mg capsule ALPRAZolam (XANAX) 0.25 mg tablet amLODIPine (NORVASC) 10 mg tablet calcium acetate (PHOSLO) 667 mg capsule citalopram (CELEXA) 40 mg tablet cloNIDine HCl (CATAPRES) 0.1 mg tablet DIRECTOR OF TEACHER EDUCATION-ROSLYN RX tablet Admission/Clinic Administered Medications as of 08/01/17: NaCl 0.9% iv infusion clindamycin 900 mg in D5W 50 mL (CLEOCIN) Problem List: ESRD (end stage renal disease) ([facility]) [N18.6] Allergies: Augmentin [Amoxicillin-Pot Clavulanate] Bactrim [Sulfamethoxazole-Trimethoprim] Lasix [Furosemide] Date Verified: 08/01/17 Lab Values Lab Value Units Date High Low POTA* 4.5 mmol/L 07/22/2017 5.1 3.7 DANIAL* 38.0 % 07/22/2017 46.0 36.0 Progress Notes ([facility]): Darrell Singh MD 07/22/2017 2:19 PM Signed see dictated note MD Darrell Epps MD 07/22/2017 3:01 PM Signed [facility] NOTE INDEPENDENCE NAME: JUAN KELLY NO.: [id number] DATE OF SERVICE: 07/22/2017 Mrs. Kelly is a 46-year-old female who is referred by Dr. Cai for peritoneal dialysis catheter placement. The patient has a history of end-stage renal disease related to diabetes. She is presently on hemodialysis through a Derek catheter and is miserable on this modality. She discussed this with her water resources project manager and was referred to me for peritoneal [...] peritoneal dialysis catheter placement here at the [facility] on August 01, 2017. DICTATED BY: Alisa Hernandez/Caesar JOB# [id number] cc: Alisa Marin M.D. Jermaine Jackson 07/22/2017 [...] Radha Willingham III, MD REASON FOR VISIT: Juan Kelly is a 46 year old female [...] AC 10-100 mg/5 mL syrup Taking Yes DIRECTOR OF TEACHER EDUCATION-ROSLYN RX tablet Taking Yes No medication comments [...] drinks per day. : Renal failure, Chronic SENIOR WEB ENGINEER: Negative for abnormal vaginal bleeding, abnormal vaginal [...] compliance. SIGNATURE: Darrell Singh MD PATIENT NAME: Juan Kelly DATE: July 22, 2017 TIME: 11:40 [...] SURGERY PROGRESS Observed: 07/17/2017 Status: COMPLETED Source: [place] 7:23 PM [facility] REPOSITORY HNO ID: [id number] Author: Darrell Singh Service: (none) Author Type: Physician Type: Progress Notes Filed: 07/22/2017 2:19 PM Note Text: see dictated note Darrell Singh MD EMERGENCY REPORT Observed: 06/29/2017 Status: F Source: [place] 9:19 AM [facility] EMERGENCY ROOM REPORT NAME ACCOUNT SEX AGE ADMIT DISCHARGE PT MED. RECORD# NUMBER DATE DATE TYPE JUAN KELLY [id number] F 46 06/25/17 06/25/17 3 [id number] ROOM: ER DATE OF : 1970 DICTATING [...] her family. Her kidney doctor is Dr. Winston Cai. Dr. Jarocho Barrow is her PCP. [...] rhinorrhea or epistaxis. Page 1 of 3 JUAN KELLY Emergency Room Report Mouth: Mucous membranes [...] intact. No motor sensory deficits noted. Hand head porter baggage is strong and symmetric. Neurologic exam shows [...] Jacoby Omalley DO 06/25/17 11:35 JOB #: [id number] Transcribed By: cl 06/25/17 20:53 Electronically signed by: E-Sign: Dr. Jacoby Omalley D.O. 06/29/17 09:19 Page 2 of 3 JUAN KELLY Emergency Room Report Observed: 06/25/2017 Status: F Source: [place] CULTURE BLOOD 9:51 AM [facility] REPOSITORY CULTURE BLOOD _BLOOD CULTURE_ SET: 1 24HOUR REPORT NO GROWTH 48HOUR REPORT NO GROWTH 72HOUR REPORT NO GROWTH M I C R O B I O L O G Y R E P O R T FINAL Antimicrobial Susceptibility and Organism Identification Report Specimen Number : [id number] Requested : 06/25/17 Specimen Source : BLOOD Collected : 06/25/17 09:51 [facility] : Emergency Room Received : 06/25/17 09:51 Requesting Physician : LYSSA Patient/Specimen Tests and Comments Specimen Comments FINAL REPORT: No Growth at 5 Days Tech : Source : BLOOD ID # : [id number] FINAL Report Date : / / : Collected : 06/25/17 09:51 06/30/17.1412.JLN. 06/30/17.141.JLN.COMPLETE Performed By: #### [id number] #### [place] [address] CT BRAIN W/O CONTRAST Observed: 06/25/2017 Status: F Source: [place] 9:48 AM [place] [address] Patient: JUAN KELLY Phone#: : 1970 Age: 46 Gender: F Pt. Type: ER Account: [id number] Location: 05 Ordering: JACOBY OMALLEY Exam Date: 06/25/2017/9:39 Family Phys: JAROCHO BARROW Charge Code: [id number] Physician: [place] Order #: [id number] DLP Dose#: PROCEDURE: CT BRAIN WITHOUT CONTRAST COMPARISON: [facility], CT, BRAIN W/O CON, 10/16/2016, 13:15. INDICATIONS: [...] Report - Page 2 of 2 Patient: JUAN KELLY Phone#: : 1970 Age: 46 Gender: F Pt. Type: ER Account: [id number] Location: 052 Ordering: JACOBY OMALLEY Exam Date: 06/25/2017/9:39 Family Phys: JAORCHO BARROW Charge Code: [id number] Physician: [place] Order #: [id number] DLP Dose#: Dictated by: Leah Ryan MD on 06/25/2017 at 9:58 Approved by: Leah Ryan MD on 06/25/2017 at 9:58 CHEST 2 VIEWS Observed: 06/25/2017 Status: F Source: [facility] 9:40 AM [place] [address] Patient: JUAN KELLY Phone#: : 1970 Age: 46 Gender: F Pt. Type: ER Account: [id number] Location: 052 Ordering: JACOBY OMALLEY Exam Date: 06/25/2017/9:27 Family Phys: JAROCHO BARROW Charge Code: [id number] Physician: [place] Order #: [id number] DLP Dose#: PROCEDURE: X-RAY CHEST 2 VIEWS COMPARISON: [facility], XR, CHEST 2 VIEWS, 05/05/2017, 12:40. INDICATIONS: [...] No acute pulmonary parenchymal abnormality. Dictated by: Leah Ryan MD on 06/25/2017 at 9:45 Approved by: Leah Ryan MD on 06/25/2017 at 9:45 CBC Collected: 06/25/2017 Status: F Source: [place] 8:18 AM [facility] REPOSITORY TYPE CODE TESTS RESULT OUT [...] x10EE3/U L Neut # High 9.30 LAB Coffey #(LOINC) 0.20 - 1.00 x10EE3/U L Coffey # 0.70 LAB EO #(LOINC) 0.00 - 0.50 x10EE3/U L EO # 0.20 LAB Baso #(LOINC) 0.00 - 0.10 x10EE3/U L Baso # 0.00 LAB MANUAL DIFF(LOINC) MANUAL DIFF N/A LAB MORPHOLOGY(LOINC ) MORPHOLOGY N/A Result Comment: {CD] Performed By: #### [id number] #### [place] [address] LACTATE Collected: 06/25/2017 Status: F Source: [facility] 8:18 [facility] REPOSITORY TYPE CODE TESTS RESULT OUT OF REFERENCE UNITS RANGE LAB LACTATE(LIZETT 4.5 - 18.0 mg/dL CA) LACTATE 5.6 Performed By: #### [id number] #### [place] [address] TROPONIN Collected: 06/25/2017 Status: F Source: [facility] 8:18 [facility] REPOSITORY TYPE CODE TESTS RESULT OUT OF [...] such as heterophile antibodies). Performed By: #### [id number] #### [facility],[address] [place] [address] CMP WITH EGFR Collected: 06/25/2017 Status: F Source: [place] 8:18 AM [facility] REPOSITORY TYPE CODE TESTS RESULT OUT [...] OF AGE AND OLDER. Performed By: #### [id number] #### [facility],[address] [place] [address] BNP (B-TYPE NATRIURETIC Collected: 06/25/2017 Status: F Source: [place] PEPTIDE) 8:18 AM [facility] REPOSITORY TYPE CODE TESTS RESULT OUT OF RANGE REFERENCE UNITS LAB BNP(LOINC) 1 - 100 pg/ml High BNP 758 Performed By: #### [id number] #### [facility],[address] [place], [place] [id number] Observed: 06/25/2017 Status: F Source: [place] CULTURE BLOOD 8:18 AM [facility] REPOSITORY CULTURE BLOOD _BLOOD CULTURE_ SET: 1 of 2 24HOUR REPORT NO GROWTH 48HOUR REPORT NO GROWTH 72HOUR REPORT NO GROWTH M I C R O B I O L O G Y R E P O R T FINAL Antimicrobial Susceptibility and Organism Identification Report Specimen Number : [id number] Requested : 06/25/17 Specimen Source : BLOOD Collected : 06/25/17 08:18 [facility] : Emergency Room Received : 06/25/17 08:18 Requesting Physician : LYSSA Patient/Specimen Tests and Comments Specimen Comments FINAL REPORT: No Growth at 5 Days Tech : Source : BLOOD ID # : [id number] FINAL Report Date : / / : Collected : 06/25/17 08:18 06/30/17.1002.JLN. 06/30/17.1002.JLN.COMPLETE Performed By: #### [id number] #### [facility],[address] [place] [address] CBC Collected: 05/13/2017 Status: F Source: [facility] 8:06 AM [facility] REPOSITORY TYPE CODE [...] #### CBC, ADIFF, ANEU, BMP, GFR #### [place] [address] .AUTO DIFF Collected: 05/13/2017 Status: F Source: [facility] 8:06 AM [facility] REPOSITORY TYPE CODE [...] #### CBC, ADIFF, ANEU, BMP, GFR #### [place] [address] .NEUABS Collected: 05/13/2017 Status: F Source: [facility] 8:06 AM [facility] REPOSITORY TYPE CODE TESTS RESULT OUT OF REFERENCE UNITS RANGE LAB ANEU(LOINC) 2.25-8.10 10 3/mcL Neutrophil, 3.50 Absolute Performed By: #### CBC, ADIFF, ANEU, BMP, GFR #### [place] [address] BMP Collected: 05/13/2017 Status: F Source: [facility] 8:06 AM [facility] REPOSITORY TYPE CODE [...] #### CBC, ADIFF, ANEU, BMP, GFR #### [place] [address] .GFR Collected: 05/13/2017 Status: F Source: [facility] 8:06 AM [facility] REPOSIT[facility] TYPE CODE TESTS RESULT OUT OF REFERENCE UNITS RANGE LAB GFRAA(LOINC ml/min/1.73 ) sqm GFR 15 [place] Result Comment: GFR Population mean for , [...] #### CBC, ADIFF, ANEU, BMP, GFR #### [address] [address] XR CHEST 1 VIEW Observed: 05/12/2017 Status: F Source: [facility] 10:14 AM [facility] REPOSITORY ORIGINAL Portable upright chest, 05/12/2017. Medical [...] AM MABO Collected: 05/12/2017 Status: F Source: [facility] 9:58 AM [facility] REPOSITORY TYPE CODE TESTS RESULT OUT OF RANGE REFERENCE UNITS LAB ABORH(LOINC ) Unknown ABO/Rh B NEG Interp Performed By: #### ADAM ANSHillary #### [address] [address] MABS Collected: 05/12/2017 Status: F Source: [facility] 9:58 AM [facility] REPOSITORY TYPE CODE TESTS RESULT OUT OF REFERENCE UNITS RANGE LAB ANSM(LOINC ) Antibody Negative ABSC Screen Manual Performed By: #### ADAM ANSHillary #### [address] [address] RBC (PRODUCT) Collected: 05/12/2017 Status: F Source: [facility] 9:49 AM [facility] REPOSITORY TYPE CODE TESTS RESULT OUT OF REFERENCE UNITS RANGE LAB RBCPR(LOINC ) RBC Product RBC Ready Ready for Pickup Performed By: #### RBCP #### [address] [address] CBC Collected: 05/12/2017 Status: F Source: [facility] 4:39 AM [facility] REPOSITORY TYPE CODE [...] #### CBC, ADIFF, ANEU, BMP, GFR #### [address] [address] .AUTO DIFF Collected: 05/12/2017 Status: F Source: [facility] 4:39 AM [facility] REPOSITORY TYPE CODE [...] #### CBC, ADIFF, ANEU, BMP, GFR #### [place] [address] .NEUABS Collected: 05/12/2017 Status: F Source: [facility] 4:39 AM [facility] REPOSITORY TYPE CODE TESTS RESULT OUT OF REFERENCE UNITS RANGE LAB ANEU(LOINC) 2.25-8.10 10 3/mcL Neutrophil, 5.60 Absolute Performed By: #### CBC, ADIFF, ANEU, BMP, GFR #### [place] [address] BMP Collected: 05/12/2017 Status: F Source: [facility] 4:39 AM [facility] REPOSITORY TYPE CODE [...] #### CBC, ADIFF, ANEU, BMP, GFR #### [place] [address] .GFR Collected: 05/12/2017 Status: F Source: [facility] 4:39 AM [facility] REPOSITORY TYPE CODE TESTS RESULT OUT OF REFERENCE UNITS RANGE LAB GFRAA(LOINC ml/min/1.73 ) sqm GFR 11 [place] Result Comment: GFR Population mean for , [...] #### CBC, ADIFF, ANEU, BMP, GFR #### [place] [address] XR CHEST 1 VIEW Observed: 05/11/2017 Status: F Source: [facility] [facility] 5:11 AM [facility] REPOSITORY ORIGINAL XR [...] AM BMP Collected: 05/11/2017 Status: F Source: [facility] 4:50 AM [facility] REPOSITORY TYPE CODE [...] MG, PHOS, GFR, CBC, ADIFF, ANEU #### [address] [address] MG Collected: 05/11/2017 Status: F Source: [facility] 4:50 AM [facility] REPOSITORY TYPE CODE TESTS RESULT OUT OF REFERENCE UNITS RANGE LAB MG(LOINC) 1.6-2.4 mg/dL Magnesium Lvl 1.9 Performed By: #### BMP, MG, PHOS, GFR, CBC, ADIFF, ANEU #### [address] [address] PHOS Collected: 05/11/2017 Status: F Source: [facility] 4:50 AM [facility] REPOSITORY TYPE CODE TESTS RESULT OUT OF REFERENCE UNITS RANGE LAB PHOS(LOINC 2.5-4.5 mg/dL ) Phosphorus 3.7 Performed By: #### BMP, MG, PHOS, GFR, CBC, ADIFF, ANEU #### [address] [address] .GFR Collected: 05/11/2017 Status: F Source: [facility] 4:50 AM [facility] REPOSITORY TYPE CODE TESTS RESULT OUT OF REFERENCE UNITS RANGE LAB GFRAA(LOINC ml/min/1.73 ) sqm GFR 14 [place] Result Comment: GFR Population mean for , [...] MG, PHOS, GFR, CBC, ADIFF, ANEU #### [place] [address] CBC Collected: 05/11/2017 Status: F Source: [facility] 4:50 AM [facility] REPOSITORY TYPE CODE [...] MG, PHOS, GFR, CBC, ADIFF, ANEU #### [address] [address] .AUTO DIFF Collected: 05/11/2017 Status: F Source: [facility] 4:50 AM [facility] REPOSITORY TYPE CODE [...] MG, PHOS, GFR, CBC, ADIFF, ANEU #### [address] [address] .NEUABS Collected: 05/11/2017 Status: F Source: [facility] 4:50 AM [facility] REPOSITORY TYPE CODE TESTS RESULT OUT OF REFERENCE UNITS RANGE LAB ANEU(LOINC) 2.25-8.10 10 3/mcL Neutrophil, 5.80 Absolute Performed By: #### BMP, MG, PHOS, GFR, CBC, ADIFF, ANEU #### [place] [address] XR CHEST 1 VIEW Observed: 05/10/2017 Status: F Source: [facility] 5:12 AM [facility] REPOSITORY ORIGINAL XR [...] AM CBC Collected: 05/10/2017 Status: F Source: [facility] 4:14 AM [facility] REPOSITORY TYPE CODE [...] ADIFF, ANEU, BMP, MG, PHOS, GFR #### [place] [address] .AUTO DIFF Collected: 05/10/2017 Status: F Source: [facility] 4:14 AM [facility] REPOSITORY TYPE CODE [...] ADIFF, ANEU, BMP, MG, PHOS, GFR #### [place] [address] .NEUABS Collected: 05/10/2017 Status: F Source: [facility] 4:14 AM [facility] REPOSITORY TYPE CODE TESTS RESULT OUT OF REFERENCE UNITS RANGE LAB ANEU(LOINC) 2.25-8.10 10 3/mcL High Neutrophil, 8.30 Absolute Performed By: #### CBC, ADIFF, ANEU, BMP, MG, PHOS, GFR #### [place] [address] BMP Collected: 05/10/2017 Status: F Source: [facility] 4:14 AM [facility] REPOSITORY TYPE CODE [...] ADIFF, ANEU, BMP, MG, PHOS, GFR #### [place] [address] MG Collected: 05/10/2017 Status: F Source: [facility] 4:14 AM [facility] REPOSITORY TYPE CODE TESTS RESULT OUT OF REFERENCE UNITS RANGE LAB MG(LOINC) 1.6-2.4 mg/dL Magnesium Lvl 2.0 Performed By: #### CBC, ADIFF, ANEU, BMP, MG, PHOS, GFR #### [place] [address] PHOS Collected: 05/10/2017 Status: F Source: [facility] 4:14 AM [facility] REPOSITORY TYPE CODE TESTS RESULT OUT OF REFERENCE UNITS RANGE LAB PHOS(LOINC 2.5-4.5 mg/dL ) Phosphorus 3.4 Performed By: #### CBC, ADIFF, ANEU, BMP, MG, PHOS, GFR #### [place] [address] .GFR Collected: 05/10/2017 Status: F Source: [facility] 4:14 AM [facility] REPOSITORY TYPE CODE TESTS RESULT OUT OF REFERENCE UNITS RANGE LAB GFRAA(LOINC ml/min/1.73 ) sqm GFR 20 [place] Result Comment: GFR Population mean for , [...] ADIFF, ANEU, BMP, MG, PHOS, GFR #### [place] [address] RESPID Collected: 05/09/2017 Status: F Source: [facility] 11:49 AM [facility] REPOSITORY TYPE CODE TESTS RESULT OUT OF REFERENCE UNITS RANGE LAB RESADENO( Not Detected LOINC) Adenovirus Not Detected LAB COVHKU1(L Not Detected OINC) Coronavirus HKU1 Not Detected LAB COVNL63(L Not Detected OINC) Coronavirus NL63 Not Detected LAB SlV154V(L Not Detected OINC) Coronavirus 229E Not Detected [...] Not Detected Performed By: #### RESPID #### [place] [address] MG Collected: 05/09/2017 Status: F Source: [facility] 9:51 AM [facility] REPOSITORY TYPE CODE TESTS RESULT OUT OF REFERENCE UNITS RANGE LAB MG(LOINC) 1.6-2.4 mg/dL Magnesium Lvl 1.9 Performed By: #### MG, PHOS, TROPI #### [place] [address] PHOS Collected: 05/09/2017 Status: F Source: [facility] 9:51 AM [facility] REPOSITORY TYPE CODE TESTS RESULT OUT OF REFERENCE UNITS RANGE LAB PHOS(LOINC 2.5-4.5 mg/dL ) Phosphorus 4.2 Performed By: #### MG, PHOS, TROPI #### [place] [address] TROPI Collected: 05/09/2017 Status: F Source: [facility] 9:51 AM [facility] REPOSITORY TYPE CODE [...] ECG changes may help assess possibility of DC. *Other non-acute coronary syndrome conditions such as CHF, myocarditis, pulmonary emboli, sepsis and cardiac surgery could result in myocardial damage and increased troponin levels. Performed By: #### MG, PHOS, TROPI #### [place] [address] XR CHEST 1 VIEW Observed: 05/09/2017 Status: F Source: [facility] 9:50 AM [facility] REPOSITORY ORIGINAL XR [...] 10:25:39 AM Observed: 05/09/2017 Status: F Source: [facility] 9:45 AM [facility] REPOSITORY . [...] Locations *1: This test was performed at: [facility], [address] [place] [address], [address] [place] [address] Performed By: #### COLETTE #### [place] [address] Observed: 05/09/2017 Status: F Source: [facility] 9:45 AM [facility] REPOSITORY . MICRO [...] Locations *1: This test was performed at: [address], [address] [place] [address] Performed By: #### SPAG #### [place] [address] CBC Collected: 05/09/2017 Status: F [facility]: [facility] CENTER 4:43 [facility] [place] REPOSITORY TYPE CODE TESTS RESULT OUT OF [...] #### CBC, ADIFF, ANEU, BMP, GFR #### [place] [address] .AUTO DIFF Collected: 05/09/2017 Status: F Source: [facility] 4:43 [facility] [place] REPOSITORY TYPE CODE TESTS RESULT OUT OF [...] #### CBC, ADIFF, ANEU, BMP, GFR #### [place] [address] .NEUABS Collected: 05/09/2017 Status: F Source: [facility] 4:43 [facility] [place] REPOSITORY TYPE CODE TESTS RESULT OUT OF REFERENCE UNITS RANGE LAB ANEU(LOINC) 2.25-8.10 10 3/mcL High Neutrophil, 10.40 Absolute Performed By: #### CBC, ADIFF, ANEU, BMP, GFR #### [place] [address] BMP Collected: 05/09/2017 Status: F Source: [facility] 4:43 [facility] [place] REPOSITORY TYPE CODE TESTS RESULT OUT OF [...] #### TIMOTHY, PRATEEK, ANEU, BMP, GFR #### [address] [address] .GFR Collected: 05/09/2017 Status: F Source: [place] 4:43 AM [facility] REPOSITORY TYPE CODE TESTS RESULT OUT OF REFERENCE UNITS RANGE LAB GFRAA(LOINC ml/min/1.73 ) sqm GFR 17 [place] Result Comment: GFR Population mean for , [...] 15 mL/min/1.73 square meters Performed By: #### TIMOTHY, ADBEVERLY, ANEU, BMP, GFR #### [address] [address] .GFR Collected: 05/08/2017 Status: F Source: [facility] 2:36 PM [facility] REPOSITORY TYPE CODE TESTS RESULT OUT OF REFERENCE UNITS RANGE LAB GFRAA(LOINC ml/min/1.73 ) sqm GFR 11 [place] Result Comment: GFR Population mean for , [...] meters Performed By: #### GFR, BMP #### [place] [address] BMP Collected: 05/08/2017 Status: F Source: [facility] 2:36 PM [facility] REPOSITORY TYPE CODE TESTS [...] 7.6 Performed By: #### GFR, BMP #### [place] [address] XR CHEST 2 VIEWS Observed: 05/08/2017 Status: F Source: [facility] 11:15 AM [facility] REPOSITORY ORIGINAL XR CHEST 2 [...] PM HEPAC Collected: 05/08/2017 Status: F Source: [facility] 9:22 AM [facility] REPOSITORY TYPE CODE [...] Int infection. Performed By: #### HEPAC #### [address] [address] RBC (PRODUCT) Collected: 05/07/2017 Status: F Source: [facility] 1:03 PM [facility] REPOSITORY TYPE CODE TESTS RESULT OUT OF REFERENCE UNITS RANGE LAB RBCPR(LOINC ) RBC Product RBC Ready Ready for Pickup Performed By: #### RBCP #### [address] [address] CBC Collected: 05/07/2017 Status: F Source: [facility] 6:47 AM [facility] REPOSITORY TYPE CODE [...] #### CBC, ADIFF, ANEU, BMP, GFR #### [address] [address] .AUTO DIFF Collected: 05/07/2017 Status: F Source: [facility] 6:47 AM [facility] REPOSITORY TYPE CODE [...] #### CBC, ADIFF, ANEU, BMP, GFR #### [place] [address] .NEUABS Collected: 05/07/2017 Status: F Source: [facility] 6:47 AM [facility] REPOSITORY TYPE CODE TESTS RESULT OUT OF REFERENCE UNITS RANGE LAB ANEU(LOINC) 2.25-8.10 10 3/mcL Neutrophil, 4.50 Absolute Performed By: #### CBC, ADIFF, ANEU, BMP, GFR #### [place] [address] BMP Collected: 05/07/2017 Status: F Source: [facility] 6:47 AM [facility] REPOSITORY TYPE CODE [...] #### CBC, ADIFF, ANEU, BMP, GFR #### [place] [address] .GFR Collected: 05/07/2017 Status: F Source: [place] [address]:47 AM [facility] REPOSITORY TYPE CODE TESTS RESULT OUT OF REFERENCE UNITS RANGE LAB GFRAA(LOINC ml/min/1.73 ) sqm GFR 8 [place] Result Comment: GFR Population mean for , [...] #### CBC, ADIFF, ANEU, BMP, GFR #### [address] [address] HH Collected: 05/06/2017 Status: F Source: [facility] 10:09 PM [facility] REPOSITORY TYPE CODE TESTS RESULT OUT OF RANGE REFERENCE UNITS LAB HGB(LOINC) 12.0-16.0 G/dL Low Hgb 7.1 LAB HCT(LOINC) 34.0-46.0 % Low Hct 21.2 Performed By: #### HH #### [address] [address] XR CHEST 2 VIEWS Observed: 05/06/2017 Status: F Source: [facility] 4:30 PM [facility] REPOSITORY ORIGINAL XR [...] PERM CATHETER Observed: 05/06/2017 Status: F Source: [facility] PLACEMENT 3:00 PM [facility] REPOSITORY ORIGINAL PROCEDURE: 1. Tunneled hemodialysis venous catheter placement with fluoroscopy and ultrasound DATE: 05/04/2017 INVENTORY COORDINATOR: Alicia Salazar PA-C CLINICAL HISTORY: SILVESTRE COMPARISON: [...] of tunneled cuffed hemodialysis catheter. Interpreted By: Shi Kuhn MD Preliminary Report By: Alicia Salazar PA-C Electronically Signed By: Shi Kuhn MD Dictated Date: 05/06/2017 4:41:14 PM Prelim Date: 05/06/2017 4:43:54 PM Sign Date: 05/06/2017 5:19:33 PM PRO Collected: 05/06/2017 Status: F Source: [facility] 12:06 PM [facility] REPOSITORY Order Comment: procedure pending TYPE CODE TESTS RESULT OUT OF REFERENCE UNITS RANGE LAB PT(LOINC) 9.0-14.5 seconds Protime 13.7 Result Comment: Effective 09/01/07, Protime results may be affected by some antibiotics (i.e. Ciprofloxacin, Azithromycin, Bactrim) which may potentiate the action of oral anticoagulants, with further increases in Protime/INR. LAB INR(LOINC) ratio PT International Ratio 1.2 Result Comment: The [place] [employer] (CHEST, 1992, 102:312S-25S) recommended therapeutic range for oral anticoagulant therapy is: LOW RISK: Prophylaxis of venous thrombosis INR: 2.0-3.0 Treatment of pulmonary embolism 2.0-3.0 Prevention of systemic embolism 2.0-3.0 HIGH RISK: Mechanical prosthetic valves 2.5-3.5 Performed By: #### PRO #### [facility] [address] [place] [address] RBC (PRODUCT) Collected: 05/06/2017 Status: F Source: [facility] 11:02 AM [facility] REPOSITORY Order Comment: to be transfused on HD. TYPE CODE TESTS RESULT OUT OF REFERENCE UNITS RANGE LAB RBCPR(LOINC ) RBC Product RBC Ready Ready for Pickup Performed By: #### RBCP #### [facility] [address] [place] [address] EMERGENCY REPORT Observed: 05/06/2017 Status: F Source: [facility] 7:26 AM [facility] REPOSITORY [facility] EMERGENCY ROOM REPORT NAME ACCOUNT SEX AGE ADMIT DISCHARGE TYPE MED. RECORD# NUMBER DATE DATE JUAN KELLY [id number] F 46 05/05/17 [id number] ROOM: DATE OF : 1970 PHYSICIAN: Naman Vuong CHIEF COMPLAINT: Cough and weakness. HISTORY OF PRESENT ILLNESS: The patient states that she has been sick for over a month. She states that it started out with the [facility] cr several weeks to a month ago with [...] normal at 4.6. Page 1 of 2 JUAN KELLY Emergency Room Report D-dimer was 426. [...] I discussed this with her. I recommended [facility] where she has been previously. Awaiting discussion with hospitalist there for anticipated transfer. D: Naman Vuong MD TD: 05/05/17 14:03 JOB #: [id number] Transcribed by: am Electronically signed by: BANG Vuong M.D. 05/06/17 07:23 Page 2 of 2 JUAN KELLY Emergency Room Report CBC Collected: 05/06/2017 Status: F Source: [facility] 6:36 AM [facility] REPOSITORY TYPE CODE TESTS RESULT [...] MG, CMP, GFR, MORPH, ADIFF, ANEU #### [place] [id number] MG Collected: 05/06/2017 Status: F Source: [facility] 6:36 AM [facility] REPOSITORY TYPE CODE TESTS RESULT OUT OF REFERENCE UNITS RANGE LAB MG(LOINC) 1.6-2.4 mg/dL Magnesium Lvl 1.9 Performed By: #### CBC, MG, CMP, GFR, MORPH, ADIFF, ANEU #### [address] [address] CMP Collected: 05/06/2017 Status: F Source: [facility] 6:36 AM [facility] REPOSITORY TYPE CODE [...] MG, CMP, GFR, MORPH, ADIFF, ANEU #### [place] [address] .GFR Collected: 05/06/2017 Status: F Source: [facility] 6:36 AM [facility] REPOSITORY TYPE CODE TESTS RESULT OUT OF REFERENCE UNITS RANGE LAB GFRAA(LOINC ml/min/1.73 ) sqm GFR 6 [place] Result Comment: GFR Population mean for , [...] MG, CMP, GFR, MORPH, ADIFF, ANEU #### [address] [address] .MORPH Collected: 05/06/2017 Status: F Source: [facility] 6:36 AM [facility] REPOSITORY TYPE CODE TESTS RESULT OUT OF REFERENCE UNITS RANGE LAB PLTE(LOINC ) Platelet Estimate Normal LAB ANIS(LOINC ) Anisocytosis Slight LAB POIK(LOINC ) Poik Slight LAB SCHIS(LOIN C) Schistocyte Rare Performed By: #### CBC, MG, CMP, GFR, MORPH, ADIFF, ANEU #### [place] [id number] .AUTO DIFF Collected: 05/06/2017 Status: F Source: [facility] 6:36 AM [facility] REPOSITORY TYPE CODE [...] MG, CMP, GFR, MORPH, ADIFF, ANEU #### [place] [id number] .NEUABS Collected: 05/06/2017 Status: F Source: [facility] 6:36 AM [facility] REPOSITORY TYPE CODE TESTS RESULT OUT OF REFERENCE UNITS RANGE LAB ANEU(LOINC) 2.25-8.10 10 3/mcL Neutrophil, 4.50 Absolute Performed By: #### CBC, MG, CMP, GFR, MORPH, ADIFF, ANEU #### [place] [address] HH Collected: 05/05/2017 Status: F Source: [facility] 9:15 PM [facility] REPOSITORY TYPE CODE TESTS RESULT OUT OF RANGE REFERENCE UNITS LAB HGB(LOINC) 12.0-16.0 G/dL Low Hgb 7.4 LAB HCT(LOINC) 34.0-46.0 % Low Hct 22.3 Performed By: #### TONO, ABORH, ANTIS #### [place] [address] TABO Collected: 05/05/2017 Status: F Source: [facility] 9:15 PM [facility] REPOSITORY TYPE CODE TESTS RESULT OUT OF RANGE REFERENCE UNITS LAB ABORH(LOINC ) Unknown ABO/Rh B NEG Interp Performed By: #### HH, ABORH, ANTIS #### [place] [address] TABS Collected: 05/05/2017 Status: F Source: [facility] 9:15 PM [facility] REPOSITORY TYPE CODE TESTS RESULT OUT OF REFERENCE UNITS RANGE LAB ANST(LOINC ) Antibody Negative ABSC Screen Tango Performed By: #### TONO, ABORH, ANTIS #### [place] [address] FES Collected: 05/05/2017 Status: F Source: [facility] 9:15 PM [facility] REPOSITORY TYPE CODE TESTS RESULT OUT OF RANGE REFERENCE UNITS LAB FE(LOINC) 37-170 mcg/dL Low Iron 15 LAB IBC(LOINC) 250-500 mcg/dL Low TIBC 217 LAB FESAT(LOINC % ) Iron Sat 7 Performed By: #### FES, FERR #### [place] [address] FERR Collected: 05/05/2017 Status: F Source: [facility] 9:15 PM [facility] REPOSITORY TYPE CODE TESTS RESULT OUT OF REFERENCE UNITS RANGE LAB FERR(LOINC) 8-252 ng/mL High Ferritin 324 Performed By: #### FES, FERR #### [place] [address] URINALYSIS Collected: 05/05/2017 Status: F Source: [facility] 4:15 PM [facility] REPOSITORY TYPE CODE TESTS RESULT OUT [...] Urobilinog(LOINC) NORMAL: NORMAL Urobilinog NORM LAB Sp [place](LOINC) NORMAL: 1.010-1.030 Sp [place] 1.015 LAB Nitrite(LOINC) NORMAL: NEGATIVE Nitrite NEG [...] LAB Yeast(LOINC) Yeast NONE Performed By: #### [id number] #### [facility],[address] [place] [address] Observed: 05/05/2017 Status: F Source: [facility] INFLUENZA VIRUS RAPID 1:35 PM [facility] A/B REPOSITORY INFLUENZA A NEGATIVE INFLUENZA B [...] UP TO THREE DAYS. Performed By: #### [id number] #### [facility],[address] [place] [address] CHEST 2 VIEWS Observed: 05/05/2017 Status: F Source: [facility] 1:28 PM [facility] REPOSITORY [place] [address] Patient: JUAN KELLY Phone#: : 1970 Age: 46 Gender: F Pt. Type: ER Account: [id number] Location: [facility] Ordering: NAMAN VUONG Exam Date: 05/05/2017/12:40 Family Phys: JAROCHO GIBBONSLER Charge Code: [id number] Physician: [place] Order #: [id number] DLP Dose#: PROCEDURE: X-RAY CHEST 2 VIEWS COMPARISON: [facility], XR, CHEST PA/LAT, 01/19/2017, 20:43. INDICATIONS: Cough [...] at 13:32 Observed: 05/05/2017 Status: F [facility]:15 PM [facility] REPOSITORY CULTURE BLOOD _BLOOD CULTURE_ SET: 2 of 2 24HOUR REPORT NO GROWTH 48HOUR REPORT NO GROWTH 72HOUR REPORT NO GROWTH M I C R O B I O L O G Y R E P O R T FINAL Antimicrobial Susceptibility and Organism Identification Report Specimen Number : [id number] Requested : 05/05/17 Specimen Source : BLOOD Collected : 05/05/17 13:15 [facility] : Emergency Room Received : 05/05/17 13:15 Requesting Physician : ERROL DE LEON Patient/Specimen Tests and Comments Specimen Comments FINAL REPORT: No Growth at 5 Days Tech : Source : BLOOD ID # : [id number] FINAL Report Date : / / : Collected : 05/05/17 13:15 05/11/17.0719.MDS. 05/11/17.0719.MDS.COMPLETE Performed By: #### [id number] #### [facility],[address] [place] [address] CBC Collected: 05/05/2017 Status: F Source: [facility] 1:10 PM [facility] REPOSITORY TYPE CODE TESTS RESULT OUT OF RANGE REFERENCE UNITS LAB CBC(LOINC) CBC Result Comment: CBC-COMPLETE BLOOD COUNT LAB WBC(LOINC) 4.5 - 10.8 x 10EE3/UL WBC 8.1 LAB RBC(LOINC) 4.10 - x 10EE6/UL Low 5.30 RBC 2.25 LAB HEMOGLOBIN(LOINC 12.0 - g/dl ) Low 16.0 Alert HEMOGLOBIN 6.9 Result Comment: { CALLED TO Mariluz/H/H/1336 { READ BACK BY [id number]/a/lm { TEST REPEATED LAB HEMATOCRIT(LOINC) 34.0 - [...] 7.10 x10EE3/U L Neut # 6.30 LAB Coffey #(LOINC) 0.20 - 1.00 x10EE3/U L Coffey # 0.70 LAB EO #(LOINC) 0.00 - 0.50 x10EE3/U L EO # 0.10 LAB Baso #(LOINC) 0.00 - 0.10 x10EE3/U L Baso # 0.00 LAB MANUAL DIFF(LOINC) MANUAL DIFF N/A LAB MORPHOLOGY(LOINC ) MORPHOLOGY N/A Result Comment: {CD] Performed By: #### [id number] #### [facility],[address] [place], [place] [address] D-DIMER, QUANTITATIVE Collected: 05/05/2017 Status: F Source: [facility] 1:10 PM [facility] REPOSITORY TYPE CODE TESTS RESULT OUT OF REFERENCE UNITS RANGE LAB D-DIMER, QUANTITATI VE(LOINC) D-DIMER, QUANTITATIVE Result Comment: QUANT D-DIMER LAB D-DIMER 0 - 230 ng/ml QUANT(LOINC) High D-DIMER QUANT 462 Performed By: #### [id number] #### [facility],[address] [place], [place] [address] CMP WITH EGFR Collected: 05/05/2017 Status: F Source: [facility] 1:10 PM [facility] REPOSITORY TYPE CODE TESTS RESULT OUT [...] OF AGE AND OLDER. Performed By: #### [id number] #### [place] [address] LACTATE Collected: 05/05/2017 Status: F Source: [facility] 1:10 PM [facility] REPOSITORY TYPE CODE TESTS RESULT OUT OF REFERENCE UNITS RANGE LAB LACTATE(LIZETT 4.5 - 18.0 mg/dL NC) LACTATE 4.6 Performed By: #### [id number] #### [place] [address] TROPONIN Collected: 05/05/2017 Status: F Source: [facility] 1:10 PM [facility] REPOSITORY TYPE CODE TESTS RESULT OUT [...] such as heterophile antibodies). Performed By: #### [id number] #### [facility],[address] [place] [address] BNP (B-TYPE NATRIURETIC Collected: 05/05/2017 Status: F Source: [facility] PEPTIDE) 1:10 PM [facility] REPOSITORY TYPE CODE TESTS RESULT OUT OF RANGE REFERENCE UNITS LAB BNP(LOINC) 1 - 100 pg/ml High BNP 585 Performed By: #### [id number] #### [place] [id number] Observed: 05/05/2017 Status: F Source: [facility] CULTURE BLOOD 1:10 PM [facility] REPOSITORY CULTURE BLOOD _BLOOD CULTURE_ SET: 1 of 2 24HOUR REPORT NO GROWTH 48HOUR REPORT NO GROWTH 72HOUR REPORT NO GROWTH M I C R O B I O L O G Y R E P O R T FINAL Antimicrobial Susceptibility and Organism Identification Report Specimen Number : [id number] Requested : / / Specimen Source : BLOOD Collected : 05/05/17 : [facility] : EMERGENCY ROOM Received : / / : Requesting Physician : ERROL PHYSICIAN Patient/Specimen Tests and Comments Specimen Comments FINAL REPORT: No Growth at 5 Days Tech : Source : BLOOD ID # : [id number] FINAL Report Date : / / : Collected : 05/05/17 : 05/11/17.MDS. 05/11/17.MDS.COMPLETE Performed By: #### [id number] #### [facility],[address] [place] [address] ALLERGIES ALLERGIES DATE TYPE / CODE NAME / CODE REACTION SEVERITY SOURCE Drug furosemide/F0060 Swelling Unknown [place] 9 Allergy/648233996( 68335(RXNORM) [facility] Hospital Repository Drug clavulanic Hives Unknown [place] 9 Allergy/312947913( acid/[id number]( Community SNOMED CT) RXNORM) Hospital Repository Drug sulfamethoxazole Chest Unknown [place] 9 Allergy/238032623( /[id number](RXNO tightness [facility] SNOM[facility]) ) Hospital Repository Drug trimethoprim/F00 Chest Unknown [place] 9 Allergy/801349335( 4607647(RXNORM) tightness [facility] SNOMED CT) Hospital Repository Drug amoxicillin/F006 Hives Unknown [place] 9 Allergy/834374070( 694146(RXNORM) [facility] SNOMED CT) Hospital Repository DRUG BUSPIRONE HCL OTHER: SEE C [place] 8 INGREDI/795993424( Clinic Main SNOMED CT) [place] Repository DRUG/908467600(SNO AMOXICILLIN-POT Vomiting [place] [address]) CLAVULANATE Clinic Main [place] Repository DRUG/937309774(SNO SULFAMETHOXAZOLE OTHER: SEE C [place] [address]) -TRIMETHOPRIM Clinic Main [place] Repository DRUG FUROSEMIDE SWELLING [place] 8 INGREDI/769138765( Clinic Main SNOMED CT) [place] Repository Drug PERCOCET/8379420 Moderate [place] Allergy/482889752( 8(RXNORM) ([facility]) Modifier) Hospital (Qualifier Repository Value) Drug AUGMENTIN/438197 Moderate [place] Allergy/572763378( 73(RXNORM) ([facility]) Modifier) Hospital (Qualifier Repository Value) Drug BACTRIM/60316718 Moderate [place] Allergy/490722521( (RXNORM) ([facility]) Modifier) Hospital (Qualifier Repository Value) Environmental 12/28/14 - MRSA Moderate [place] Allergy/921085331( SCREEN ([facility]) Modifier) Hospital (Qualifier Repository Value) Miscellaneous No Known Food Moderate [place] Allergy/773014787( Allergies ([facility]) Modifier) Hospital (Qualifier Repository Value) ENCOUNTERS ENCOUNTERS ADMIT/DISCHARGE ACCOUNT NUMBER ADMITTING ENCOUNTER LOCATION SOURCE CLASS 03/10/2018/ [id number] Ambulatory Jazmine Jaz[place] 019 [facility] ding:[facility]oom Repository : AC07 02/26/2018/ [id number] Ambulatory [address] Main [place] Repository 02/26/2018/ [id number] Ambulatory [address] Main [place] Repository 02/24/2018/ [id number] Ambulatory [place] 019 [facility] Repository 02/24/2018/ [id number] Ambulatory [place] 019 [facility] Repository 02/19/2018/ [id number] Ambulatory BMSBuilding: [place] 019 [facility] Repository 02/12/2018/ [id number] Ambulatory [address] Repository 02/12/2018/ [id number] Ambulatory [place] 018 [facility] Repository 02/03/2018/ [id number] Ambulatory BMSBuilding: [place] 018 [facility] Repository 01/27/2018/ [id number] Ambulatory [address] Repository 01/27/2018/ [id number] Ambulatory [address] ding:SDCRoom Repository : AC06 01/27/2018/ [id number] Ambulatory BMSBuilding: [place] 018 [facility] Repository 01/20/2018 [id number] Ambulatory BMSBuilding: [place] BMS.[facility] Repository 01/20/[id number] [facility] ding:[facility] Repository 01/20/2018/ [id number] Ambulatory BMSBuilding: [place] 018 [facility] Repository 01/15/2018/ [id number] Ambulatory [address] Repository 01/15/2018/ [id number] Ambulatory [place] 018 [facility] Repository 01/05/2018 [id number] Ambulatory RBuilding:ASHLY [facility] Repository 01/02/2018/ [id number] RATNA STEIN MD Inpatient ABuilding:ME Deirdre Lambert Encounter 4SRoom: [place] [id number]: [facility] Repository 01/01/2018/ [id number] JAMAL, Emergency Buildin[address] [place] [address] Room: ERBed: [facility] Repository 12/29/2017/ [id number] Ambulatory [place] 018 [facility] Main [place] Repository 12/29/2017/ [id number] Ambulatory [place] 018 [facility] Main [place] Repository 12/29/2017/ [id number] Ambulatory [place] 018 [facility] Main [place] Repository 12/29/2017/ [id number] Ambulatory [place] 018 [facility] Main [place] Repository 12/29/2017/ [id number] Ambulatory [place] 018 [facility] Main [place] Repository 12/29/2017/ [id number] Ambulatory [place] 018 Clinic Main [place] Repository 12/29/2017/ [id number] Ambulatory [place] 018 Clinic Main [place] Repository 12/29/2017/ [id number] Ambulatory [place] 018 Clinic Main [place] Repository 12/29/2017/ [id number] Ambulatory [place] 018 Clinic Main [place] Repository 12/29/2017/ [id number] Ambulatory [place] 018 Clinic Main [place] Repository 12/12/2017 [id number] DEMETRA, Ambulatory [facility] Repository 12/12/2017/ [id number] EDEOGA, Inpatient ABuilding:ME [place] 018 [place] Encounter 4SRoom: Health 4679Bed: [facility] Repository 12/10/2017/ [id number] Ambulatory [place] 018 Clinic Main [place] Repository 12/10/2017/ [id number] Ambulatory [place] 018 Clinic Main [place] Repository 12/04/2017 [id number] MARIA D, Ambulatory [facility]ana GUILLEN [facility] Repository 11/21/2017/ [id number] AMINA ESQUEDA, Inpatient ABuilding:ME [place] 018 [place] Encounter 4ERoom: Health 4725Bed: [facility] Repository 11/21/2017/ [id number] DR NAMAN VUONG Emergency Buildin [place] 018 C Room: ERBed: [facility] Repository 11/17/2017/ [id number] CANDI, Emergency Buildin [place] 018 ARLETH M Room: ERBed: [facility] Repository 11/06/2017/ [id number] Ambulatory [place] 018 Clinic Main [place] Repository 11/05/2017 [id number] MARY GUILLEN Ambulatory Kana E [facility] Repository 11/05/2017/ [id number] Ambulatory [place] 018 [facility] Repository 10/27/2017/ [id number] HENRI, Emergency Buildin [place] 018 JORGE ESQUEDA Room: ERBed: [facility] Repository 10/22/2017/ [id number] Ambulatory [place] 018 [facility] Repository 10/20/2017/ [id number] CANDI, Emergency Buildin [place] 018 [place] M Room: ERBed: [facility] Repository 10/19/2017/ [id number] CANDI, Emergency Buildin [place] 018 [place] M Room: ERBed: [facility] Repository 09/18/2017/ [id number] PUSHPA, Ambulatory [place] 018 JAROCHO [facility] Repository 09/15/2017 [id number] PUSHPA, Ambulatory [place]ana JAROCHO [facility] Repository 08/01/2017/ [id number] RIKKI, Ambulatory [place] 018 [facility] Repository 07/29/2017/ [id number] FRED SHEPHERD Emergency Buildin [place] 018 DO Room: ERBed: [facility] Repository 07/22/2017/ [id number] Ambulatory [place] 018 [facility] Repository 07/22/2017/ [id number] Ambulatory [place] 018 [facility] Repository 07/22/2017 [id number] Ambulatory [facility] Repository 07/22/2017 [id number] Ambulatory [facility] Repository 06/25/2017/ [id number] JACOBY OMALLEY Emergency Buildin [place] 018 DO Room: ERBed: [facility] Repository 06/12/2017 [id number] Ambulatory ABuilding:LITZY [facility] Repository 05/05/2017/ [id number] LETY ESQUEDA, Inpatient ABuilding:ME Deirdre GOODRICH Encounter 4ERoom: [place] [address]Bed: [facility] Repository 05/05/2017/ [id number] DR NAMAN VUONG Emergency Buildin[address] [place] [address] Room: ERBed: [facility] Repository PAYERS PAYERS ENCOUNTER GUARANTOR PAYER SUBSCRIBER SOURCE 03/10/2018 JUAN [place] Primary CEE [id number] TR Insurance:AULTCAREPoli MILLERDOB: [address] Number: [id number] [place] [address]Uuy: [id number] Repository Date:3521-15-62EE [address] () [place] [address]YB: 03/10/2018 Secondary NOT GIVENUNK [place] Insurance:SELF PAY [facility] Number: Effective Repository Date:2018-02-20 02/19/2018 JUAN [place]anc[place] Primary CEE [id number] TR Insurance:AULTCAREPoli MILLERDOB: [address], Number: [id number], [place] [address]Mzh: [id number] Repository Date:6438-24-32HN [address] () [place] [address]JL: 02/19/2018 Secondary NOT GIVENUNK [place] Insurance:SELF PAY [facility] Number: Effective Repository Date:2018-02-03 02/03/2018 JUAN Betancourt Primary CEE Lucero [id number] TR Insurance:AULTCAREPoli MILLERDOB: [address], [place] Number: [id number] Regional Hospital, [place] [address]Til: [id number] Repository Date:1706-51-74QL BOX () [place] [address]EM: 02/03/2018 Secondary NOT GIVENUNK Dupuyer Insurance:SELF PAY [facility] Number: Effective Repository Date:2018-02-03 01/27/2018 JUAN Betancourt Primary CEE Lucero [id number] TR Insurance:AULTCAREPoli MILLERDOB: [address] Number: [id number] Regional Hospital, [place] [address]Rzi: [id number] Repository Date:6386-38-56JS BOX () [address] [address]NG: 01/27/2018 Secondary NOT GIVENUNK Jazmine Insurance:SELF PAY [facility] Number: Effective Repository Date:2018-01-26 01/27/2018 JUAN Betancourt Primary CEE [id number] TR Insurance:AULTCAREPoli MILLERDOB: Community [address] [place] [address], [place] Number: [id number] Regional Hospital, [place] [address]Sgp: [id number] Repository Date:9283-39-95IX BOX () [address] [address]ZU: 01/27/2018 Secondary NOT GIVENUNK Jazmine Insurance:SELF PAY [facility] Number: Effective Repository Date:2018-01-27 01/20/2018 JUAN Betancourt Primary CEE Garciaoster [id number] TR Insurance:AULTCAREPoli MILLERDOB: Community [address] [place] [address], [place] Number: [id number] Regional Hospital, [place] [address]Ako: [id number] Repository Date:7629-03-12TE BOX () [address] [address]AZ: 01/20/2018 Secondary NOT GIVENUNK Jazmnie Insurance:SELF PAY [facility] Number: Effective Repository Date:2018-01-20 01/20/2018 JUAN Betancourt Primary CEE Lucero [id number] TR Insurance:AULTCAREPoli MILLERDOB: Community [address] [place] [address], [place] Number: [id number] Regional Hospital, [place] [address]Prx: [id number] Repository Date:6606-81-48DU BOX () [address] [address]TP: 01/20/2018 Secondary NOT GIVENUNK Jazmine Insurance:SELF PAY [facility] Number: Effective Repository Date:2018-01-20 01/20/2018 JUAN Betancourt Primary CEE Garciaoster [id number] TR Insurance:AULTCAREPoli MILLERDOB: [address] [facility] Number: [id number] Regional Hospital, [place] [address]Tgw: [id number] Repository Date:8917-99-53IJ BOX () [address] [place] [address]NG: 01/20/2018 Secondary NOT GIVENUNK Jazmine Insurance:SELF PAY [facility] Number: Effective Repository Date:2017-12-29 01/05/2018 JUAN Betancourt Primary Insurance:SELF JUAN [facility]ourt [facility]: [facility] Number: Effective [id number] Repository [facility] Date:2018-01-[address], 7820-52-57Kmio Name:[address] [place] [address]Egu: [place] [address]Lqi: (HP) (HP) (WP) 01/02/2018 JUAN Betancourt Primary [facility]EE [facility] Y79Jrirrt Number: [id number] Repository [facility] [id number] [address] [place] [address], Date:2018-01-02 [facility] [address]Gin: [id number] [address]Day: (330) Name:IN[employer]ORY COORDINATOR [phone] () [address] [place] [address] ()Tel: [phone]: (WP) [phone] 01/01/2018 JUAN Betancourt Primary CEE Trivedi CHESTERFIELDDOB: Insurance:AULTCARE MILLERDOB: [facility] [id number] [facility] [address] Number: [address] [place] [id number] [place], [place] [address]Sxq: (330) Date:Plan Name:A2 [id number] [phone] (HP) 12/12/2017 JUAN Betancourt Primary CEE Trivedi CHESTERFIELDDOB: Insurance:AULTCARE CHESTERFIELDDOB: [facility] [id number] [facility] [address] Number: [address] Repository [place] [id number] [place], [place] [address]Yef: (330) Date:Plan Name:A2 [id number] [phone] (HP) 12/12/2017 [facility]AN [facility]ogt [facility] Insurance:REVERECARE CHESTERFIELDDOB: [facility] T59Mxqkqq Number: [id number] Repository [facility] [address] [id number] [address] 501BIG [place], Date:2017-12-12 [facility] [address]Ctr: [id number] [address]Hsu: (330) Name:[address] () [address] [place] [address] ()Tel: [phone]: () [phone] 12/04/2017 JUAN Betancourt [facility] CEE Trivedi CHESTERFIELDDOB: Insurance:AULTCARE [facility] [id number] [facility] [address] Number: [address] Repository [place] [id number] [place], [place] [address]Phw: (330) Date:Plan Name:A2 [phone] () 11/21/2017 JUAN [facility]: Insurance:REVERECARE CHESTERFIELDDOB: [facility] N58Sszmkq Number: [id number] Repository [facility] [address] [id number] [address] 501BIG [place], Date:2017-11-21 [facility], [place] [address]Mcj: [id number] [id number]: (330) Name:[facility] Veena [id number] () [address] [place] [address] ()Tel: [phone]: () [phone] 11/21/2017 JUAN Betancourt Primary CEE Trivedi MILLERDOB: Insurance:AULTCARE MILLERDOB: [facility] [id number] Hospital TR [address] Number: [address] Repository [place] [id number] [place], [place] [address]Vkj: (330) Date:Plan Name: [id number] [phone] () 11/17/2017 JUAN Lopes CEE Trivedi MILLERDOB: Insurance:AULTCARE MILLERDOB: [facility] [id number] Number: [address] Repository [place], [place] [id number] [place], [place] [address]Aaf: (330) Date:Plan Name:A2 [id number] [phone] () 11/05/2017 JUAN Betancourt [facility] CEE Trivedi MILLERDOB: Insurance:AULTCAREPoli MILLERDOB: [facility] Number: [id number] [facility] 501BIG [id number] [address] [place] [address] Repository [place] Date:2494-06-09Btpe 51BIG [facility], [address]Yvq: (330) Name:[facility] [phone] () 10/27/2017 JUAN Betancourt [facility] CEE Trivedi MILLERDOB: Insurance:AULTCARE MILLERDOB: [facility] [id number] Hospital TR [address] Number: [address] Repository [place] [id number] [place] [address]Zkn: (330) Date:Plan Name: [id number] [phone] () 10/20/2017 JUAN Betancourt Primary CEE Trivedi MILLERDOB: Insurance:AULTCARE MILLERDOB: [facility] [id number] Hospital TR [address] Number: [address] Repository [place] [id number] [place], [place] [address]Xac: (330) Date:Plan Name:A2 [id number] [phone] (HP) 10/19/2017 JUAN J [facility] CEE Trivedi MILLERDOB: Insurance:AULTCARE MILLERDOB: [facility] [id number] Hospital TR [address] Number: [address] Repository [place] [id number] [place], [place] [address]Qol: (330) Date:Plan Name:A2 [id number] [phone] (HP) 09/18/2017 JUAN Serafin [facility] CEE Trivedi CHESTERFIELDDOB: Insurance:AULTCARE MILLERDOB: [facility] [id number] [place] [address] Number: [address] 51[address] Repository 5BIG [place], [id number] [place], [place] [address]Sim: Date:Plan Name:A2 [id number] (HP) 09/15/2017 JUAN Betancourt [facility] JUANKaushik Trivedi CHESTERFIELDDOB: Insurance:AULTCAREPoli MILLERDOB: [facility] cy Number: [id number] [facility] [id number] [address] [place] [address] Repository 5BIG [place], Date:Plan Name:PI 5BIG [place], [place] [address]Jyw: [phone] (HP) 07/29/2017 JUAN J [facility] CEE Trivedi CHESTERFIELDDOB: Insurance:AULTCARE MILLERDOB: [facility] [id number] Hospital TR [address] Number: [address] 51[address] Repository [place] [id number] [place] [id number]: Date:Plan Name:A2 [id number] (HP) 06/25/2017 JUAN Betancourt [facility] CEE Trivedi CHESTERFIELDDOB: Insurance:REVERECARE CHESTERFIELDDOB: [facility] [id number] [facility] [address]BIG Number: 6 [address] 51[address] Repository [place] [id number] [place] [id number]: Date:Plan Name:A2 [id number] () 06/12/2017 JUAN [facility]EE [facility]: [facility] N62Srfhvw Number: [id number] Repository [facility] [address] [id number] [address] 51BIG 51BIG [place], Date:2017-06-10 [facility] [place] [address]Nuu: [id number] [address]Vwf: (330) Name:[facility] Box [facility] () [address] [place] [address] ()Tel: [phone]: () [phone] 05/05/2017 JUAN MIKE [facility]: Insurance:[facility]: [facility] K59Jvgefx Number: [id number] Repository [facility] [address] [id number] [address] 51BIG 51BIG [place], Date:2017-05-05 [facility] [address]Jtw: [id number] [address]Klj: (330) Name:[facility] [phone] () [address] [place] [address] ()Tel: [phone]: () [phone] 05/05/2017 JUAN Betancourt [facility] CEE [facility]: [facility]:REVERECARE CHESTERFIELDDOB: [facility] [id number] [facility] [address]IG Number: [address] 51[address] Repository [place] [id number] [place] [id number]: Date:Plan Name:A2 [id number] (HW)
== END 2018-03-10 15:30 | disposition home or self-care (01) ==
LOC: SDC 07:14 → AC 07:15
PROVIDERS: Family Provider Family Medicine; PCP Family Medicine; Referring Provider Surgery; Visit Provider Surgery
PROC: (CPT 36819; principal; 2018-03-10 08:55)
DX: I12.0 Hypertensive chronic kidney disease with stage 5 chronic kidney disease or end stage renal disease (principal); N18.5 Chronic kidney disease, stage 5; E11.22 Type 2 diabetes mellitus with diabetic chronic kidney disease; Z99.2 Dependence on renal dialysis; Z79.4 Long term (current) use of insulin; Z79.899 Other long term (current) drug therapy
CPT/HCPCS: 01844; 36819; 36415; 80048; 81025; 82962; 85027; J2405

== ENCOUNTER → 2018-03-24 11:13 | Outpatient (CLI) | payer OTHER, SELFPAY ==
[2018-03-10 08:08] VITALS: BMI 29.1
--- NOTE | 2018-03-24 11:15 | AVDS_ITS ---
Reason For Study: Arterial steal RIGHT Rt nulato artery - 379 cm/s Volume flow - 1175 cc/min Rt Anastomosis - 485 cm/s RT Prox graft - 332 cm/s Volume flow 2649 cc/min RT Mid graft -200 cm/s Volume flow - 1211 cc/min RT Dist graft - 175 cm/s Volume flow - 1413 cc/min RT Outflow - 108 cm/s Volime fllow - 780 cc/min RT Radial artery - 46.8 cm/s RT Ulnar artery - 29.5 cm/s. Interpretation Summary High flow right upper extremity AV fistula. Diminished right radial and ulnar flow consistent with arterial steal. Ordering Physician: Guanakito Palafox Referring Physician: Guanakito Palafox Performed By: Ana Pop RVT
== END ==
PROVIDERS: Family Provider Family Medicine; PCP Family Medicine; Referring Provider Surgery; Visit Provider Surgery
DX: T82.898A Other specified complication of vascular prosthetic devices, implants and grafts, initial encounter (principal)
CPT/HCPCS: 93990

== ENCOUNTER → 2018-04-28 13:53 | Outpatient (CLI) | payer OTHER, SELFPAY ==
[2018-04-07 12:53] VITALS: BMI 29.1
--- NOTE | 2018-04-28 13:56 | AVDS_ITS ---
Reason For Study: RUE pain/swelling RIGHT Prox cahuilla artery - 243.0 cm/s Prox Anastomosis - 304 cm/s Prox graft -234 cm/s Volume flow - 1105 cc/min Mid graft - 255 cm/s Volume flow - 1299 cc/min Dist graft - 208 cm/s Volume flow - 1670 cc/min Outflow - 148 cm/s Volume flow -1263 cc/min Large heterogenous structure noted medial upper arm . Non-vascular Images of structure and cahuilla artery mislabeled as LT. Interpretation Summary High flow right upper extremity transposed basilic vein to brachial artery hemodialysis fistula Large right upper arm non-vascular heterogenous structure suspicous for postoperative hematoma. Clinical correlation is required. Ordering Physician: Guanakito Palafox Referring Physician: Guanakito Palafox Performed By: Ana Pop RVT
== END ==
PROVIDERS: Family Provider Family Medicine; PCP Family Medicine; Referring Provider Surgery; Visit Provider Surgery
DX: T82.898A Other specified complication of vascular prosthetic devices, implants and grafts, initial encounter (principal); M79.89 Other specified soft tissue disorders; M79.602 Pain in left arm
CPT/HCPCS: 93990

== ENCOUNTER 2018-04-30 10:45 | Day surgery (SDC) | payer OTHER, SELFPAY ==
[2018-04-07 12:53] VITALS: BMI 29.1
[2018-04-30] VITALS (15 sets, daily range): BP systolic 113–148; BP diastolic 64–86; PULSE 77–97; RESP 16–18; TEMP 36.4–36.9; O2SAT 92–98; BMI 34.0
[2018-04-30 11:05] LABS: Internal QC Validated? YES +Cl - CLEAR BKGD
[2018-04-30 11:08] LABS: Pregnancy, Urine Negative Negative
[2018-04-30 11:24] LABS: Hematocrit 28.7 % (37-47); Hemoglobin 9.1 g/dl (12.0-15.0); Mean Corp Hgb Conc 31.7 g/gl (32-36); Mean Corpuscular Hgb 28.3 pg (27.0-32.0); Mean Corpuscular Volume 89.4 fL (81-99); Mean Platelet Vol. 10.8 fl (6.2-12.0); Platelet Count 251 K/mm3 (150-450); RBC Distribution Width CV 19.9 % (11.6-14.6); RBC Distribution Width SD 63.8 fl (35.1-43.9); Red Blood Count 3.21 M/mm3 (4.2-5.4); White Blood Count 7.3 K/mm3 (4.4-11.0)
[2018-04-30 11:26] LABS: Scan Indicated on CBC? Y/N NO
[2018-04-30 11:38] LABS: Anion Gap 10 (5-15); BUN 41 mg/dL (7-18); BUN/Creat Ratio 9.6 RATIO (10-20); Calcium,Total 8.9 mg/dL (8.5-10.1); Chloride 95 mmol/L (98-107); Creatinine, Serum 4.27 mg/dL (0.55-1.02); EST Glomerular Filtration Rate 12 mL/min (>60); Est Glom Filt Rate - Afr Amer 14 mL/min (>60); Estimated Creatinine Clearance 15.41 ml/min; Glucose 236 mg/dL (74-106); Potassium 4.8 mmol/L (3.5-5.1); Sodium Level 130 mmol/L (136-145)
[2018-04-30 11:41] LABS: Bedside Glucose 248 mg/dL (70-110)
[2018-04-30 11:46] LABS: Hemoglobin A1c 10.5 % (4.2-6.3)
--- NOTE | 2018-04-30 13:51 | DCINST_ITS ---
Discharge Diet: Renal Diet Discharge Activity: May Not Drive - No driving for 2 days, May Not Shower Lifting Restrictions: 5 pounds Keep extremity elevated above heart level: - - Keep arm elevated above the heart level for 3 days. Additional Activity Instructions:: Exercise hand vigorously with a stress ball. Allergies/Adverse Reactions: Allergies amoxicillin [From Augmentin] Allergy (Verified 04/29/18 08:20) Hives clavulanic acid [From Augmentin] Allergy (Verified 04/29/18 08:20) Hives furosemide [From Lasix] Allergy (Verified 04/29/18 08:20) Swelling sulfamethoxazole [From Bactrim] Allergy (Verified 04/29/18 08:20) Chest tightness trimethoprim [From Bactrim] Allergy (Verified 04/29/18 08:20) Chest tightness Medications to take at Discharge Insulin Glargine,Hum.rec.anlog [Lantus] 10 unit SQ QHS 02/08/15 Lisinopril [Zestril] 10 mg PO DAILY 11/29/15 Insulin Aspart [Novolog Flexpen (BKC)] 5 units SC BIDCM 04/29/18 Lorazepam [Ativan] 2 mg PO DAILY 04/29/18 Melatonin 5 mg PO QHS 04/29/18 Primary Care Physician: Alexander Gamble MD [Primary Care Provider] - Test Results: Test results from this visit will be discussed in further detail at your follow- up appointment, if applicable. Please Follow Up With: Guanakito Palafox MD - [phone] When: Call to make an appointment for suture removal and follow up in 1 week.
[2018-04-30] MEDS: Bupivacaine Mpf 0.5% 30 ML VIAL (14:02)
--- NOTE | 2018-04-30 14:37 | PCM.OPRPT ---
Problem List (1) Swelling of right upper extremity Status: Acute Report of Operation Date of Procedure: 04/30/18 Pre-Operative Diagnosis: Right upper extremity swelling and hematoma status post transposition right upper extremity basilic vein to brachial artery arteriovenous hemodialysis fistula creation Post-Operative Diagnosis: Same Surgery/Procedure Performed:: Exploration right upper arm wound with evacuation hematoma and drainage Description of Surgical Findings:: Timeout and informed consent was obtained. 47-year-old female was taken home general anesthesia. Clindamycin 900 mg were given intravenously preoperatively. The right upper extremity was sterilely prepped and draped. 0.5% Marcaine was used to total 10 cc. The previous longitudinal incision the medial aspect of the right upper arm was approximately 70% reopened. Upon doing so doing a clotted hematoma was identified. 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 The hematoma was evacuated but it was noted to be very tenaciously adherent to all jack of the cavity. I utilized a laparotomy pack to assist with some of the Asya debridement and evacuation of the hematoma. There was no obvious source of blood loss. There was no active bleeding source identified. I made a stab incision in the distal medial right upper arm and exited a 15 round EDY drain. I secured the drain to the skin with 3-0 nylon shortened the drain and placed it into the cavity. I then used interrupted 3-0 Vicryl in an attempt to approximate the cavity and closed the cavity. Great care was required to avoid the AV fistula. Because of the degree of swelling of the right upper arm clear identification of the exact path of the fistula very difficult to identify. Having 2 layers of subdermal tissue closure with 3-0 Vicryl and then used skin bhavya to approximate the skin. Telfa and ABDs web roll Ramiro wrap applied. Sponge and instrument and needle counts reported the surgeon be correct. New blood loss 100 cc she tolerated the procedure well was taken to the recovery area in satisfactory condition without apparent complication. Specimen none. Drains 15 round EDY. Blood loss 100 cc of new blood. Guanakito Palafox M.D., F.A.C.S. Type of Anesthesia:: General Anesthesiologist: Jenna Vasquez
--- NOTE | 2018-04-30 14:41 | OP.PCM_ITS ---
Problem List (1) Swelling of right upper extremity Status: Acute Report of Operation Date of Procedure: 04/30/18 Pre-Operative Diagnosis: Right upper extremity swelling and hematoma status post transposition right upper extremity basilic vein to brachial artery rey riovenous hemodialysis fistula creation Post-Operative Diagnosis: Same Surgery/Procedure Performed:: Exploration right upper arm wound with evacuation hematoma and drainage Description of Surgical Findings:: Timeout and informed consent was obtained. 47-year-old female was taken home general anesthesia. Clindamycin 900 mg were given intravenously preoperatively. The right upper extremity was sterilely prepped and draped. 0.5% Marcaine was used to total 10 cc. The previous longitudinal incision the medial aspect of the right upper arm was approximately 70% reopened. Upon doing so doing a clotted hematoma was identified. 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 The hematoma was evacuated but it was noted to be very tenaciously adherent to all jack of the cavity. I utilized a laparotomy pack to assist with some of the Asya debridement and evacuation of the hematoma. There was no obvious source of blood loss. There was no active bleeding source identified. I made a stab incision in the distal medial right upper arm and exited a 15 round EDY drain. I secured the drain to the skin with 3-0 nylon shortened the drain and placed it into the cavity. I then used interrupted 3-0 Vicryl in an attempt to approximate the cavity and closed the cavity. Great care was required to avoid the AV fistula. Because of the degree of swelling of the right upper arm clear identification of the exact path of the fistula very difficult to identify. Having 2 layers of subdermal tissue closure with 3-0 Vicryl and then used skin bhavya to approximate the skin. Telfa and ABDs web roll Ramiro wrap applied. Sponge and instrument and needle counts reported the surgeon be correct. New blood loss 100 cc she tolerated the procedure well was taken to the recovery area in satisfactory condition without apparent complication. Specimen none. Drains 15 round EDY. Blood loss 100 cc of new blood. Guanakito Palafox M.D., F.A.C.S. Type of Anesthesia:: General Anesthesiologist: Jenna Vasquez
[2018-04-30 15:05] LABS: Bedside Glucose 192 mg/dL (70-110)
== END 2018-04-30 18:01 | disposition home or self-care (01) ==
LOC: SDC 10:45 → AC 10:46
PROVIDERS: Anesthesiology; Family Provider Family Medicine; PCP Family Medicine; Referring Provider Surgery; Visit Provider Surgery
PROC: (CPT 10140; principal; 2018-04-30 12:50)
DX: T82.898A Other specified complication of vascular prosthetic devices, implants and grafts, initial encounter (principal); M79.89 Other specified soft tissue disorders; I10 Essential (primary) hypertension; E11.9 Type 2 diabetes mellitus without complications; N28.9 Disorder of kidney and ureter, unspecified; F41.9 Anxiety disorder, unspecified; Z99.2 Dependence on renal dialysis; Z99.81 Dependence on supplemental oxygen; Z79.4 Long term (current) use of insulin; Z79.899 Other long term (current) drug therapy; Z87.891 Personal history of nicotine dependence
CPT/HCPCS: 00400; 10140; 36415; 80048; 81025; 82962; 83036; 85027; 87070; 87075; 87102; 87205; 87206; 94640; J2405

== ENCOUNTER → 2018-06-11 15:59 | Outpatient (CLI) | payer OTHER, SELFPAY ==
[2018-06-09 15:08] VITALS: BMI 34.0
[2018-06-11 17:04] LABS: Amphetamine Urine VISTA NEGATIVE (<1000 ng/mL); Barbiturate Urine VISTA NEGATIVE (< 200 ng/mL); Benzodiazepine Urine VISTA NEGATIVE (< 200 ng/mL); Cocaine Urine VISTA NEGATIVE (< 300 ng/mL); Ecstacy Urine VISTA NEGATIVE (< 500 ng/mL); Methadone Urine VISTA NEGATIVE (< 300 ng/mL); PCP Urine VISTA NEGATIVE (< 25 ng/mL); THC Urine VISTA NEGATIVE (< 50 ng/mL); Vista UDS pH Range 6
[2018-06-11 17:34] LABS: Hemoglobin A1c 7.8 % (4.2-6.3)
== END ==
PROVIDERS: Family Provider Family Medicine; PCP Family Medicine; Referring Provider Anesthesiology Pain Medicine; Visit Provider Anesthesiology Pain Medicine
DX: F11.20 Opioid dependence, uncomplicated (principal)
CPT/HCPCS: 36415; 80307; 83036

== ENCOUNTER 2019-03-16 08:24 | Emergency (ER) | payer OTHER, MEDICARE, SELFPAY ==
[2018-06-09 15:08] VITALS: BMI 34.0
[2019-03-16 08:25] VITALS: BP 180/92; PULSE 89; RESP 20; TEMP 36.6; O2SAT 98; BMI 32.9
--- NOTE | 2019-03-16 08:44 | EKG12_ITS ---
Test Reason : WEAKNESS Blood Pressure : / mmHG Vent. Rate : 086 BPM Atrial Rate : 086 BPM P-R Int : 200 ms QRS Dur : 094 ms QT Int : 386 ms P-R-T Axes : 072 -12 096 degrees QTc Int : 461 ms Normal sinus rhythm Left ventricular hypertrophy with repolarization abnormality Abnormal ECG Confirmed by CHERELLE HOFFMANN ([id number]), graphics editor YAW REED ([id number]) on 03/18/2019 10:19:52 AM Referred By: KISHAN Confirmed By:CHERELLE HOFFMANN
--- NOTE | 2019-03-16 08:46 | RAD_ITS ---
STUDY: X-RAY CHEST REASON FOR EXAM: Female, 48 years old. SOB. CURRENTLY ON DIALYSIS. NOT FEELING WELL. TECHNIQUE: Single AP portable view of the chest. COMPARISON: None. FINDINGS: The lungs are clear and expanded. There is no demonstrated pleural abnormality. There is moderate cardiac enlargement. Normal mediastinum and tanna. Normal visualized pulmonary arteries. Normal visualized aortic arch and descending thoracic aorta. There is a dextroscoliosis of the thoracic spine. Healed right rib fractures. There is no demonstrated abnormality of the visualized soft tissue structures of the upper abdomen. RAD/Chest 1 View (Portable) IMPRESSION: Cardiomegaly. The lungs are clear. Electronically Signed: Rafael Do, at 9:16 EST , Service support ,
--- NOTE | 2019-03-16 08:46 | ED.DCSUM_ITS ---
History of Present Illness Chief Complaint: Weakness Informant: Patient Narrative: She presents with generalized weakness. She had dialysis yesterday, it was a full dialysis, she feels ill lightheaded and quite anxious she has some tingling in her fingers. She has no chest pain, she has no difficulty breathing, she has no recent cough or congestion. She had an influenza vaccine. She has been mostly compliant with her dialysis however she still has high blood sugars and she controls her blood sugars quite poorly they are normally in the 300s and sometimes as low as 200s. Past Medical History - Allergies and Home Meds Allergies/Adverse Reactions: Allergies amoxicillin [From Augmentin] Allergy (Verified 03/16/19 08:28) Hives clavulanic acid [From Augmentin] Allergy (Verified 03/16/19 08:28) Hives furosemide [From Lasix] Allergy (Verified 03/16/19 08:28) Swelling sulfamethoxazole [From Bactrim] Allergy (Verified 03/16/19 08:28) Chest tightness trimethoprim [From Bactrim] Allergy (Verified 03/16/19 08:28) Chest tightness Primary Care Physician: Alexander Gamble MD [Primary Care Provider] - Past Medical History: - - Diabetes, hypertension, end-stage renal disease on hemodialysis Surgical History: cholecystectomy, - Smoking Status: Former smoker Review of Systems General: Denies: Fever Eyes: Denies: Visual changes - left Cardiovascular: Reports: Palpitations. Denies: Chest pain Respiratory: Denies: Dyspnea, Cough Gastrointestinal: Reports: Nausea. Denies: Abdominal pain, Vomiting Musculoskeletal: Denies: Myalgias, Arthralgias Skin: Denies: Rash, Abrasions, Wounds Neurological: Reports: Weakness. Denies: Headache Psych: Reports: Anxiety. Denies: Depression Endocrine: Denies: Polyuria Hematologic: Reports: Easy bruising Physical Exam Vital Signs/Narrative: Vital Signs Temp Pulse Resp BP Pulse Ox 03/16/19 08:25 98 F 89 20 H 180/92 H 98 General: - - Patient appears chronically ill, she appears anxious. She does not appear toxic. Head: Normocephalic Eyes: Perrl, EOMI ENT: Moist mucous membranes Neck: Supple Cardiovascular: Regular rate, Regular rhythm Respiratory: No distress, CTA bilaterally, Chest nontender Abdomen: Soft, Nontender, Nondistended Back: Nontender, Normal Inspection Extremities: Nontender, - - Right upper arm dialysis fistula, its [place]. Palpable thrill. Skin: Normal color, No rash Neurological: Alert, Normal Strength, Normal Sensation Psychological: Normal affect Diagnostic/Tx/Re-eval - Rhythm Strip Rhythm Strip: Sinus Rhythm Rate: 86 Ectopy: None - EKG Follow-up EKG Interpretation: - - Normal sinus rhythm with a rate of 86. Normal OR interval. Normal QTc interval. No ischemic changes. Patient does meet criteria for LVH on EKG. Interpreted by emergency doctor - Medical Decision Making Patient has a normal emergency department work-up. She is significantly im proved with Ativan. She is now back to her baseline. I talked to her and her , if anything worsens they need to return otherwise patient feels better, she has no signs of significant electrolyte abnormalities, I did caution her on her diet and her glycemic control. She understands. She will follow-up. ED Disposition - Plan for ED Patient: Disposition: Home or Assisted Living Diagnosis: Chronic renal failure, stage 5 Instructions: WEAKNESS, Unk Cause Referrals: Alexander Gamble MD [Primary Care Provider] - 3-5 Days
--- NOTE | 2019-03-16 08:48 | NURSING ---
NO OLD EKGS
[2019-03-16] MEDS: LORazepam 2 MG/ML Syringe 0.5 MG IV (09:13)
[2019-03-16 09:26] LABS: Absolute Lymphocyte Count 1.24 X10^3/uL (0.83-4.51); Absolute Neutrophil Count 4.6 X10^3/uL (2.0-7.7); Basophil# 0.05 X10^3/uL; Basophil% 0.7 % (0-1); Hematocrit 33.4 % (37-47); Hemoglobin 10.7 g/dL (12.0-15.0); Lymphocyte # 1.24 X10^3/ul (4.0); Lymphocyte % 18.3 % (19-41); Mean Corpuscular Hgb 30.1 pg (27.0-32.0); Mean Corpuscular Volume 93.8 fL (81-99); Mean Platelet Vol. 10.5 fl (6.2-12.0); Monocyte# 0.71 X10^3/uL; Monocyte% 10.5 % (0-10); NRBC Flagged by Analyzer 0 % (0-5); Neutrophil # 4.55 X10^3/uL (2.7-7.7); Neutrophil % 67.2 % (47-70); Platelet Count 314 K/mm3 (150-450); RBC Distribution Width CV 14.9 % (11.6-14.6); RBC Distribution Width SD 50.2 fl (35.1-43.9); Red Blood Count 3.56 M/mm3 (4.2-5.4); White Blood Count 6.8 K/mm3 (4.4-11.0)
[2019-03-16 09:47] LABS: ALB/GLOB Ratio 0.6 RATIO (0.9-2.4); AST(SGOT) 45 U/L (15-37); Alanine Aminotransfer ALT/SGPT 77 U/L (13-56); Albumin, Serum 3.3 g/dL (3.2-5.0); Alkaline Phosphatase 399 U/L (45-117); Anion Gap 8 (5-15); BUN 37 mg/dL (7-18); BUN/Creat Ratio 8.2 RATIO (10-20); Calcium,Total 9.5 mg/dL (8.5-10.1); Chloride 94 mmol/L (98-107); Creatinine, Serum 4.53 mg/dL (0.55-1.02); EST Glomerular Filtration Rate 11 mL/min (>60); Est Glom Filt Rate - Afr Amer 13 mL/min (>60); Estimated Creatinine Clearance 13.81 ml/min; Globulin 5.4 g/dL (2.2-4.2); Glucose 260 mg/dL (74-106); Protein, Total 8.7 g/dL (6.4-8.2); Sodium Level 132 mmol/L (136-145)
[2019-03-16 11:18] VITALS: BP 140/117; PULSE 62; RESP 16; RESP 18; O2SAT 92
== END 2019-03-16 11:19 | disposition home or self-care (01) ==
PROVIDERS: Emergency Provider Emergency Medicine; PCP Family Medicine
DX: I12.0 Hypertensive chronic kidney disease with stage 5 chronic kidney disease or end stage renal disease (principal); N18.6 End stage renal disease; E11.22 Type 2 diabetes mellitus with diabetic chronic kidney disease; Z99.2 Dependence on renal dialysis; Z87.891 Personal history of nicotine dependence; Z79.4 Long term (current) use of insulin
CPT/HCPCS: 71045; 80053; 84484; 85025; 93005; 96374; 99282; A4216

== ENCOUNTER → 2019-10-19 07:30 | Outpatient (CLI) | payer OTHER, MEDICARE, SELFPAY ==
--- NOTE | 2019-10-19 07:45 | MRI_ITS ---
STUDY: MRI CERVICAL SPINE WITHOUT CONTRAST REASON FOR EXAM: Female, 48 years old. neck pain, arm pain, bilat hand numbness TECHNIQUE: Standardized fat and water weighted pulse sequences were obtained in the sagittal and axial planes. COMPARISON: None FINDINGS: Normal foramen magnum and brainstem-cervical cord junction. Normal craniovertebral junction. Normal anterior atlantoaxial articulation. Normal odontoid process. Normal cervical lordosis. Normal vertebral bodies and posterior osseous elements. C2-3: Normal endplates. Normal disc height, signal and morphology. Normal central canal and intervertebral neural foramina. C3-4: Normal endplates. Normal disc height, signal and morphology. Normal central canal and intervertebral neural foramina. C4-5: Normal endplates. Normal disc height, signal and morphology. Normal central canal and intervertebral neural foramina. C5-6: Normal endplates. Normal disc height, signal and morphology. Normal central canal and intervertebral neural foramina. C6-7: Normal endplates. Normal disc height, signal and morphology. Normal central canal and intervertebral neural foramina. C7-T1: Normal endplates. Normal disc height, signal and morphology. Normal central canal and intervertebral neural foramina. Normal cervical cord. Normal visualized soft tissue structures. MRI/Spine Cervical (Routine) IMPRESSION: Normal unenhanced MR examination of the cervical spine. Electronically Signed: Tony Whitlock MD at 9:03 EDT Tel , Service support ,
--- NOTE | 2019-10-19 08:50 | RAD_ITS ---
STUDY: X-RAY - CERVICAL SPINE REASON FOR EXAM: Female, 48 years old. HX OF CHRONIC SCOLIOSIS. PAIN MANAGEMENT. TECHNIQUE: 3 view(s) of the cervical spine were obtained. COMPARISON: None FINDINGS: Normal anterior atlantoaxial articulation. Normal odontoid process. Normal cervical lordosis. Normal vertebral bodies and endplates. Normal disc space heights. Normal visualized intervertebral neuroforamina. The soft tissue structures are unremarkable. RAD/Cerv Spine 2 or 3 Views IMPRESSION: Normal x-ray examination of the visualized cervical spine. Electronically Signed: Tony Whitlock MD at 9:12 EDT Tel , Service support ,
== END ==
PROVIDERS: PCP Family Medicine; Referring Provider Anesthesiology Pain Medicine; Visit Provider Anesthesiology Pain Medicine
DX: M54.2 Cervicalgia (principal); M79.603 Pain in arm, unspecified
CPT/HCPCS: 72040; 72141

== ENCOUNTER 2020-08-01 16:04 | Emergency (ER) | payer MEDICARE, OTHER, SELFPAY ==
[2020-08-01 16:06] VITALS: BP 144/89; PULSE 73; RESP 16; TEMP 36.2; O2SAT 94; BMI 26.6
--- NOTE | 2020-08-01 16:37 | CT_ITS ---
STUDY: CT ABDOMEN AND PELVIS WITHOUT CONTRAST REASON FOR EXAM: Female, 49 years old. Lower abdominal pain decreased blood pressure on dialysis renal failure bowel obstruction 2 months ago RADIATION DOSAGE (If Supplied By Facility): CTDIvol = ( 14.96 ) mGy, DLP = ( 743.66 ) mGycm TECHNIQUE: Transaxial images were obtained from the dome of the diaphragm to the symphysis pubis without oral contrast, and without intravenous contrast. Sagittal and coronal images were reconstructed. Individualized dose optimization techniques were used for this CT. COMPARISON: None. FINDINGS: There are small bilateral pleural effusions. Heart is enlarged with coronary artery disease. There is anasarca. Normal liver. Normal gallbladder and extrahepatic biliary system. Normal spleen. Normal pancreas. Normal bilateral adrenal glands. Kidneys are end-stage atrophic without stones or hydronephrosis. There is no intestinal obstruction. Appendix is visualized with difficulty and probably contains an appendicolith without inflammation. There is small amount of free fluid in the pelvis. There is severe calcific vasculopathy. Normal urinary bladder. Normal abdominal wall. There is mild levoscoliosis and remote right fixation. CT/Abdomen/Pel W ORAL Cont Only IMPRESSION: 1. No acute or focal abdominal disease. 2. no intestinal obstruction. 3. Anasarca, minimal ascites and small pleural effusion. Electronically Signed: Antonio Clemens MD at 18:54 EDT Tel , Service support ,
--- NOTE | 2020-08-01 16:38 | EX.ED.DYSGE1 ---
HPI History of Present Illness Chief Complaint: Weakness Narrative Narrative: 49-year-old female with end-stage renal disease on dialysis Friday, Friday, Friday presenting with multiple complaints. She states that today she started having chills and feels shaky. She also complains of cold sweats. She states she was able to go to an eye appointment today and was told she had low blood pressure. She cannot recall what the blood pressure was but states that was systolically in the 90s. Patient also complains of abdominal pain in the lower abdomen from the right to the left. She denies urinary complaints, constipation. She states she did have diarrhea yesterday which forced her to not go to dialysis. She has this scheduled for tomorrow. She also states that she recently had adhesion lysis at [facility] in the last 2 months. This was done because she had a small bowel obstruction. She denies fever, cough, shortness of breath. PFSH [facility] Medical History Chronic renal failure, stage 5 Dehiscence of external surgical wound Depression Diabetes mellitus, type II, insulin dependent H/O abscess of skin and subcutaneous tissue Hypertension Problem with dialysis access Tobacco use disorder Home Medications insulin glargine 10 unit SQ QHS 02/08/15 [History Last Taken Unknown] lisinopril 10 mg PO DAILY 11/29/15 [History Last Taken 04/30/18 08:00] insulin aspart U-100 5 units SUBCUT BIDCM 04/29/18 [History Last Taken Unknown] lorazepam 2 mg PO DAILY 04/29/18 [History Last Taken Unknown] melatonin 5 mg PO QHS 04/29/18 [History Last Taken Unknown] Allergy/AdvReac Type Severity Reaction Status Date / Time amoxicillin [From Augmentin] Allergy Hives Verified 08/01/20 16:06 clavulanic acid Allergy Hives Verified 08/01/20 16:06 [From Augmentin] furosemide [From Lasix] Allergy Swelling Verified 08/01/20 16:06 sulfamethoxazole Allergy Chest Verified 08/01/20 16:06 [From Bactrim] tightness trimethoprim [From Bactrim] Allergy Chest Verified 08/01/20 16:06 tightness Surgical History History of arteriovenostomy for renal dialysis (~12/2017) Status post insertion of dialysis catheter Social History Smoking Status: Current every day smoker tobacco type: cigarettes ROS ROS ED Constitutional Constitutional ED: Reports chills and sweats; Denies fever(s) Eyes Eyes: Denies blurry vision or change in vision ENT ENT ED: Denies ear pain, rhinorrhea or sore throat Cardiovascular Cardiovascular: Denies chest pain, palpitations or racing heartbeat Respiratory/Chest Respiratory/Chest: Denies cough, dyspnea or sputum Gastrointestinal Gastrointestinal: Reports abdominal pain, diarrhea and nausea; Denies constipation or vomiting Genitourinary Genitourinary ED: Denies dysuria, hematuria or urinary frequency Musculoskeletal Musculoskeletal: Reports myalgias; Denies arthralgias or neck pain Integumentary Denies abscess, Abrasions or rash Neurologic Neurologic: Denies headache(s), paresthesias or weakness Psychiatric Psychiatric: Denies anxiety, depression, suicidal ideation or suicidal thoughts Endocrine Endocrinology: Denies polydipsia or polyuria EXAM Physical Exam Const Vital Signs: 08/01/20 16:06 08/01/20 17:14 08/01/20 17:24 Temperature 97.2 F L Temperature Source Temporal Pulse Rate 73 73 Respiratory Rate 16 18 Respiratory Effort Normal Respiratory Pattern Normal Blood Pressure 144/89 H 139/69 H Blood Pressure Mean 107 92 Pulse Ox 94 91 Oxygen Delivery Method Room Air Room Air Positive obese Nutritional Appearance: obese HEENT Reports moist mucous membranes Negative for trauma Eyes PERRL and EOMs intact bilaterally General Eye ED: Negative for pale conjunctiva or scleral icterus Resp normal respiratory effort and clear to auscultation bilaterally Cardio regular rate and regular rhythm Back/Spine no CVA tenderness Extremity normal to inspection General Extremety ED: Negative for tenderness Neuro oriented x3 and CN's II-XII intact bilaterally Sensorium / Orientation: alert Psych mental status grossly normal Skin no rashes or lesions noted and no wounds MDM MDM MDM Narrative Medical decision making narrative: Patient presenting with generalized weakness and feeling jittery. Patient did miss dialysis and had a diarrheal episode on Friday. Her chest x-ray is interpreted by myself shows cardiomegaly as well as pulmonary edema with trace right pleural effusion and the radiologist does agree. CBC is unremarkable. Her creatinine is elevated at 7.81 but I would expect this given she missed dialysis. Her alk phos is a little bit elevated but was previously elevated higher than this range. Patient has CT abdomen pelvis which showed some anasarca and mild ascites. After discussing this with the patient she states that her previous surgeon offered to place line into her abdomen so that she could have this drained and she previously declined this. She does not appear to want this today either. Her pulse ox was slightly low initially and I went in to reevaluate the patient and adjusted the pulse oximeter her pulse ox was 94. Patient states that she does have oxygen she wears at home at night. We did speak about admission versus going home however she feels she can make it home with the assistance of her and do dialysis tomorrow. Impression: 1. End-stage renal disease 2. Elevated creatinine 3. Pulmonary edema 4. Ascites 5. Pleural effusion Lab Data Labs: Laboratory Results - last 24 hr 08/01/20 08/01/20 17:00 17:00 WBC 6.6 RBC 3.53 L Hgb 11.2 L Hct 33.9 L MCV 96.0 MCH 31.7 MCHC 33.0 RDW Std Deviation 52.6 H RDW Coeff of Nico 15.0 H Plt Count 231 MPV 10.5 Immature Gran % (Auto) 0.300 Neut % (Auto) 69.3 Lymph % (Auto) 18.4 L [place] % (Auto) 9.3 Eos % (Auto) 2.1 Baso % (Auto) 0.6 Absolute Neuts (auto) 4.6 Absolute Lymphs (auto) 1.21 Nucleated RBC % 0 Sodium 133 L Potassium 5.0 Chloride 95 L Carbon Dioxide 27.0 Anion Gap 11 BUN 56 H Creatinine 7.81 H* Estim Creat Clear Calc 9.21 Est GFR (MDRD) Af Amer 7 L Est GFR (MDRD) Non-Af 6 L BUN/Creatinine Ratio 7.2 L Glucose 209 H Calcium 8.8 Total Bilirubin 0.60 AST 33 ALT 28 Alkaline Phosphatase 227 H Total Protein 7.7 Albumin 3.4 Globulin 4.3 H Albumin/Globulin Ratio 0.8 L Lipase 56 L Radiography Diagnostic Testing: Radiology Impression Abdomen CT 08/01/20 16:37 IMPRESSION: 1. No acute or focal abdominal disease. 2. no intestinal obstruction. 3. Anasarca, minimal ascites and small pleural effusion. Electronically Signed: Antonio Clemens MD at 18:54 EDT Tel , Service support , Chest X-Ray 08/01/20 18:24 IMPRESSION: 1. Severe cardiomegaly. 2. Mild to moderate pulmonary edema. Minimal right pleural effusion. Electronically Signed: Antonio Clemens MD at 19:07 EDT Tel , Service support , Discharge Plan Triage Chief Complaint: Weakness ED Provider: Pal Reed Dx/Rx/DC Orders Instructions: ED Ascites, ED Pleural Effusion, ED Weakness (Uncertain Cause) Prescriptions: No Action insulin glargine 100 UNIT/ML solution 10 unit SQ QHS RF: 0 lisinopril 10 MG tablet 10 mg PO DAILY RF: 0 insulin aspart U-100 100 UNITS/ML insulin pen 5 units subcut BIDCM RF: 0 melatonin 5 MG capsule 5 mg PO QHS RF: 0 lorazepam 2 MG tablet 2 mg PO DAILY RF: 0 Primary Care Provider: Alexander Gamble Referrals: Alexander Gamble MD [Primary Care Provider] - Disposition Disposition: Home, self care
[2020-08-01] MEDS: Morphine 4 MG/ML Syringe IV (17:06)
[2020-08-01] MEDS: Ondansetron 4 MG/2 ML Vial IV (17:07)
[2020-08-01 17:14] VITALS: BP 139/69; PULSE 73; RESP 18; O2SAT 91
[2020-08-01 17:16] LABS: Absolute Lymphocyte Count 1.21 X10^3/uL (0.83-4.51); Absolute Neutrophil Count 4.6 X10^3/uL (2.0-7.7); Basophil# 0.04 X10^3/uL; Basophil% 0.6 % (0-1); Eosinophil# 0.14 X10^3/uL; Eosinophils% 2.1 % (0-5); Hematocrit 33.9 % (37-47); Hemoglobin 11.2 g/dL (12.0-15.0); Lymphocyte # 1.21 X10^3/ul (0.83-4.51); Lymphocyte % 18.4 % (19-41); Mean Corpuscular Hgb 31.7 pg (27.0-32.0); Mean Platelet Vol. 10.5 fl (6.2-12.0); Monocyte# 0.61 X10^3/uL; Monocyte% 9.3 % (0-10); NRBC Flagged by Analyzer 0 % (0-5); Neutrophil # 4.57 X10^3/uL (2.7-7.7); Neutrophil % 69.3 % (47-70); Platelet Count 231 K/mm3 (150-450); RBC Distribution Width SD 52.6 fl (35.1-43.9); Red Blood Count 3.53 M/mm3 (4.2-5.4); White Blood Count 6.6 K/mm3 (4.4-11.0)
[2020-08-01 17:40] LABS: ALB/GLOB Ratio 0.8 RATIO (0.9-2.4); AST(SGOT) 33 U/L (15-37); Alanine Aminotransfer ALT/SGPT 28 U/L (13-56); Albumin, Serum 3.4 g/dL (3.2-5.0); Alkaline Phosphatase 227 U/L (45-117); Anion Gap 11 (5-15); BUN 56 mg/dL (7-18); BUN/Creat Ratio 7.2 RATIO (10-20); Calcium,Total 8.8 mg/dL (8.5-10.1); Chloride 95 mmol/L (98-107); Creatinine, Serum 7.81 mg/dL (0.55-1.02); EST Glomerular Filtration Rate 6 mL/min (>60); Est Glom Filt Rate - Afr Amer 7 mL/min (>60); Estimated Creatinine Clearance 9.21 ml/min; Globulin 4.3 g/dL (2.2-4.2); Glucose 209 mg/dL (74-106); Lipase 56 U/L (73-393); Protein, Total 7.7 g/dL (6.4-8.2); Sodium Level 133 mmol/L (136-145)
--- NOTE | 2020-08-01 18:24 | RAD_ITS ---
STUDY: X-RAY CHEST REASON FOR EXAM: Female, 49 years old. weakness hypotension on dialysis TECHNIQUE: Frontal portable view of the chest COMPARISON: 16 March 2019 FINDINGS: The heart is severely enlarged. There is mild to moderate pulmonary edema. There is right lower lung atelectasis and small effusion. There is no pneumothorax. Left pleural cavity is clear. Osseous structures are intact with moderate thoracic scoliosis. RAD/Chest 1 View (Portable) IMPRESSION: 1. Severe cardiomegaly. 2. Mild to moderate pulmonary edema. Minimal right pleural effusion. Electronically Signed: Antonio Clemens MD at 19:07 EDT Tel , Service support ,
[2020-08-01 19:59] VITALS: BP 137/75; PULSE 76; RESP 16
== END 2020-08-01 20:00 | disposition home or self-care (01) ==
PROVIDERS: Emergency Provider Student in an Organized Health Care Education/Training Program; PCP Family Medicine
DX: I13.11 Hypertensive heart and chronic kidney disease without heart failure, with stage 5 chronic kidney disease, or end stage renal disease (principal); E11.22 Type 2 diabetes mellitus with diabetic chronic kidney disease; N18.6 End stage renal disease; R79.89 Other specified abnormal findings of blood chemistry; J81.1 Chronic pulmonary edema; R18.8 Other ascites; J90 Pleural effusion, not elsewhere classified; F17.210 Nicotine dependence, cigarettes, uncomplicated; E66.9 Obesity, unspecified; Z79.4 Long term (current) use of insulin; Z79.899 Other long term (current) drug therapy; Z99.2 Dependence on renal dialysis
CPT/HCPCS: 71045; 74176; 80053; 83690; 85025; 96374; 96375; 99284; A4216; J2405